=== PATIENT | female | born 1940 | race Caucasian/White ===

== ENCOUNTER 2023-06-30 09:21 | Outpatient (OUT) | payer MEDICARE, SELFPAY ==
[2023-06-30 10:11] LABS: Bilirubin Urine NEGATIVE (NEGATIVE); Blood Urine SMALL (NEGATIVE); Clarity Urine CLEAR (CLEAR); Color Urine LT. YELLOW (YELLOW); Glucose Urine UA NEGATIVE (NEGATIVE); Hematocrit 43.3 % (36.0-48.0); Hemoglobin 14.1 g/dL (12.0-16.0); Ketones Urine NEGATIVE (NEGATIVE); Leukocyte Esterase Urine SMALL (NEGATIVE); Mean Corpuscular HGB Conc 32.6 g/dL (29.9-35.2); Mean Corpuscular Hemoglobin 30.6 pg (26.7-34.0); Mean Corpuscular Volume 93.9 fL (81.0-99.0); Mean Platelet Volume 10.9 fL (9.5-13.5); Nitrite Urine NEGATIVE (NEGATIVE); Platelet Count 253 10^3/uL (150-450); Protein Urine NEGATIVE (NEG/TRACE); Red Blood Count 4.61 10^6/uL (4.20-5.40); Red Cell Distribution Width 14.3 % (11.0-15.0); Specific Gravity Urine 1.015 (1.005-1.025); Urobilinogen Urine 0.2 EU/dL (0.2-1.0); White Blood Count 9.3 10^3/uL (4.0-11.0)
[2023-06-30 10:29] LABS: Alanine Aminotransferase 52 U/L (14-59); Albumin Globulin Ratio 1.2; Albumin Level 4.4 g/dL (3.4-5.0); Alkaline Phosphatase 98 U/L (46-116); Anion Gap 10.7; Aspartate Amino Transferase 35 U/L (15-37); BUN Creatinine Ratio 33.8; Bilirubin Total 0.9 mg/dL (0.2-1.0); Calcium 9.3 mg/dL (8.5-10.1); Carbon Dioxide 30.6 mmol/L (21.0-32.0); Chloride 101 mmol/L (98-107); Estimated GFR (African America 46 (>=60); Estimated GFR (Non-African Ame 38 (>=60); Globulin 3.7 g/dL; Glucose 131 mg/dL (74-106); Magnesium 2.3 mg/dL (1.8-2.4); Potassium 4.3 mmol/L (3.5-5.1); Sodium 138 mmol/L (136-145); Total Protein 8.1 g/dL (6.4-8.2); Uric Acid 8.3 mg/dL (2.6-6.0)
[2023-06-30 10:38] LABS: Creatinine Urine Random 80.03 mg/dL (20.00-300.00); Protein Creatinine Ratio Urine 0.18; Total Protein Urine Random 14.2 mg/dL (<=11.9)
[2023-07-01 11:11] LABS: PTH, Intact 68 pg/mL (15-65)
== END 2023-06-30 09:22 | disposition home or self-care (01) ==
LOC: LAB 09:25
PROVIDERS: Visit Provider Internal Medicine Nephrology
DX: E11.22 Type 2 diabetes mellitus with diabetic chronic kidney disease (principal); N18.4 Chronic kidney disease, stage 4 (severe); I13.0 Hypertensive heart and chronic kidney disease with heart failure and stage 1 through stage 4 chronic kidney disease, or unspecified chronic kidney disease; I50.9 Heart failure, unspecified; E55.9 Vitamin D deficiency, unspecified; E79.0 Hyperuricemia without signs of inflammatory arthritis and tophaceous disease; E87.5 Hyperkalemia
CPT/HCPCS: 36415; 80053; 81003; 82306; 82570; 83735; 83970; 84100; 84156; 84550; 85027

== ENCOUNTER 2023-09-08 13:52 | Outpatient (OUT) | payer MEDICARE, SELFPAY ==
[2023-09-08 15:43] LABS: Anion Gap 14.7; BUN Creatinine Ratio 37.2; Calcium 9.3 mg/dL (8.5-10.1); Carbon Dioxide 27.4 mmol/L (21.0-32.0); Chloride 101 mmol/L (98-107); Estimated GFR (African America 44 (>=60); Estimated GFR (Non-African Ame 37 (>=60); Glucose 163 mg/dL (74-106); Potassium 4.1 mmol/L (3.5-5.1); Sodium 139 mmol/L (136-145)
== END 2023-09-08 13:53 | disposition home or self-care (01) ==
LOC: LAB 13:55
PROVIDERS: Visit Provider Nurse Practitioner Family
DX: I50.23 Acute on chronic systolic (congestive) heart failure (principal)
CPT/HCPCS: 36415; 80048; 83880

== ENCOUNTER 2023-10-08 10:16 | Outpatient (OUT) | payer MEDICARE, SELFPAY ==
--- NOTE | 2023-10-08 15:45 | CA_ITS ---
Patient Name: MABLE CHAPPELL MR#: [id number] : 1940 Exam Date: 10/08/2023 Ordering Doctor: DHEERAJ WHITEHEAD CNP ECHOCARDIOGRAM REPORT PROCEDURE: CA ECHO DOPPLER COMPLETE INDICATIONS: Nonrheumatic aortic valve stenosis, CHF COMPARISON: None. DESCRIPTION: COMPLETE ECHOCARDIOGRAM Real-time transthoracic echocardiography with 2D, M-mode, spectral and color flow Doppler performed. QUALITY: Technical quality was good. LEFT VENTRICLE: Normal chamber size. Thickened septal wall. LV EF: Global left ventricular systolic function is normal. Visual estimation of left ventricular ejection fraction is 60 to 65%. No wall motion abnormalities. DIASTOLIC: Not adequately assessed due to heart rhythm. ATRIAL SEPTUM: Inadequately seen. LEFT ATRIUM: Severe dilatation. RIGHT ATRIUM: Mild dilatation. RIGHT VENTRICLE: Normal chamber size. Normal right ventricular systolic function. TRICUSPID VALVE: Normal mobility and thickness. Mild to moderate regurgitation. Moderate pulmonary hypertension. RVSP 45mmHg MITRAL VALVE: Moderately thickened. Mitral valve stenosis suspected; unable to assess severity. There is no mitral annular calcification. Moderate to severe mitral regurgitation. AORTIC VALVE: Normal trileaflet appearance. Severely calcified aortic valve. Severely diminished mobility. Doppler velocity suggests mild to moderate aortic valve stenosis. Vmax 2.7m/s, Mean gradient 20mmHg. Severe aortic stenosis is suggested by DVI 0.2, WISAM 0.4cm2. Mild aortic regurgitation. AORTIC ROOT: Normal diameter and appearance. PULMONIC VALVE: Normal thickness and mobility. No stenosis. Trivial regurgitation. PERICARDIUM: Trivial pericardial effusion. IVC: Collapses with inspirations. Normal size. CONCLUSION: 1. Global left ventricular systolic function is normal; visually estimated ejection fraction is 60 to 65% 2. Biatrial enlargement 3. The right ventricle is normal in size and systolic function 4. Mild to moderate tricuspid regurgitation 5. Right ventricular systolic pressure is moderately elevated; RVSP 45 mmHg 6. Mitral valve stenosis is suspected; unable to assess severity 7. Moderate to severe mitral regurgitation 8. Aortic valve stenosis; Doppler velocity suggests mild to moderate aortic valve stenosis. Severe aortic stenosis is suggested by the DVI of 0.20 and aortic valve area of 0.4 cm?. 9. Mild aortic valve regurgitation 10. Trivial pericardial effusion Adult Echocardiography Procedure Report Left Ventricle LVEDD (3.7 - 5.6 cm): 4.13 cm LVESD (2.2 - 4.0 cm): 2.35 cm LVIVS thickness (0.6 - 1.2 cm): 1.21 cm LVPW thickness (0.5 - 1.0 cm): 0.66 cm e': 0.09 m/s E - e': 16.81 LVOT Max Gradient: 1.23 mm[Hg] LVOT Area (cm2): 0.55 m/s Peak Velocity (LVOT): 0.55 m/s Mean Velocity (LVOT): 0.36 m/s LVOT Diameter 1.74 cm Left Ventricular Ejection Fraction: 59.57 % Left Atrium LA Volume Index (2D A2C): 85.30 ml/m2 Left Atrium Systolic Dimension: 4.42 cm Mitral Valve MV E to A Ratio: 55.49 Mitral Valve A-Wave Peak Velocity: 0.03 m/s Mitral Valve E-Wave Peak Velocity: 1.50 m/s Right Ventricle RV Internal Diastolic Dimension: 2.93 cm Aorta AO Root Diam: 2.66 cm Ascending Ao Diam: 2.15 cm Aortic Valve AoV Area (Peak Crescencio): 0.52 cm2, 0.59 cm2 AoV Area (VTI): 0.53 cm2, 0.64 cm2 Deceleration Shoshone: 1.15 m/s2 Pressure Half-Time: 883.66 ms Peak Velocity(Antegrade Flow): 2.24 m/s, 2.56 m/s, 2.71 m/s Peak Gradient(Antegrade Flow): 20.12 mm[Hg], 26.31 mm[Hg], 29.29 mm[Hg] Mean Velocity(Antegrade Flow): 1.78 m/s, 1.76 m/s, 2.13 m/s Mean Gradient(Antegrade Flow): 13.64 mm[Hg], 14.17 mm[Hg], 19.45 mm[Hg] Velocity Time Integral: 53.26 cm, 60.85 cm, 79.74 cm Tricuspid Valve Peak Velocity (Regurgitant Flow): 2.69 m/s, 3.20 m/s, 3.21 m/s Pulmonic Valve Peak Velocity: 0.82 m/s Peak Gradient: 2.37 mm[Hg], 3.01 mm[Hg] Right Atrium Right Atrium Systolic Pressure: 40.23 ml, 40.23 ml Dictated by: Roshan Caruso M.D. on 10/09/2023 at 14:13 Approved by: Roshan Caruso M.D. on 10/09/2023 at 14:25
== END 2023-10-08 10:17 | disposition home or self-care (01) ==
LOC: CARD 10:16
PROVIDERS: Visit Provider Nurse Practitioner Family
DX: I50.32 Chronic diastolic (congestive) heart failure (principal)
CPT/HCPCS: 93306

== ENCOUNTER 2023-11-19 12:09 | Outpatient (OUT) | payer MEDICARE, SELFPAY ==
--- OUTSIDE RECORDS SUMMARY | 2023-11-19 12:14 | XMS_ITS | CCD ---
Author Name Unknown Address [address] [place] [address] Organization [facility] Care Team Providers Care Pail Tester Name Role Phone Zachary Ware Primary Care Provider ANABEL CUEVAS Referring Unavailable ANABEL CUEVAS Referring Unavailable ZACHARY WARE Primary Care Unavailable Albin Bonner Unavailable Zachary Ware Primary Care Provider Kelvin Maya MD, [place] Primary Care Provider DR ZACHARY WARE Primary Care Unavailable FURLONG, DR ZACHARY Larson Consulting Unavailable FURLONG, DR ZACHARY Larson Attending Unavailable FURLONG, DR ZACHARY Larson Admitting Unavailable PANTEGO, DR CHARIS Maya Consulting Unavailable MISC, DR DENNISON Admitting Unavailable MISC, DR DENNISON Primary Care Unavailable MISC, DR DENNISON Consulting Unavailable MISC, DR DENNISON Attending Unavailable MISC, DR DENNISON Admitting Unavailable FURLONG, DR ZACHARY Larson Primary Care Unavailable FURLONG, DR ZACHARY Larson Consulting Unavailable MISC, DR DENNISON Attending Unavailable MOUKARBEL, DR SYKES Attending Unavailable MOUKARBEL, DR SYKES Admitting Unavailable FURLONG, DR ZACHARY Larson Primary Care Unavailable VENTURADHEERAJ KUMARI Admitting Unavailable BARBARA WHITEHEADINDA Consulting Unavailable DHEERAJ WHITEHEAD Attending Unavailable FURLOSTACIE, DR ZACHARY Larson Primary Care Unavailable MOUKARBEL, DR SYKES Consulting Unavailable MOUKARBEL, DR SYKES Attending Unavailable MOUKARBEL, DR SYKES Admitting Unavailable VENTURADHEERAJ MICHAUD Admitting Unavailable ELA GASPAR Consulting Unavailable MISC, DR DENNISON Primary Care Unavailable DHEERAJ WHITEHEAD Attending Unavailable VENTURA, DHEERAJ Consulting Unavailable FURLONG, DR ZACHARY Larson Primary Care Unavailable PAY ., DR GARCIA Attending Unavailable PAY ., DR GARCIA Admitting Unavailable PAY ., DR GARCIA Consulting Unavailable MISC, DR DENNISON Primary Care Unavailable HAY ., DR JOHANSEN Attending Unavailable HAY ., DR JOHANSEN Admitting Unavailable HAY ., DR JOHANSEN Consulting Unavailable MAYORAUL Consulting Unavailable DHEERAJ WHITEHEAD Admitting Unavailable MISC, DR DENNISON Primary Care Unavailable MISC, DR DENNISON Consulting Unavailable DHEERAJ WHITEHEAD Attending Unavailable DHEERAJ WHITEHEAD Consulting Unavailable MOUKARBEL, DR SYKES Consulting Unavailable MOUKARBEL, DR SYKES Attending Unavailable MOUKARBEL, DR SYKSE Admitting Unavailable MISC, DR DENNISON Primary Care Unavailable MISC, DR DENNISON Attending Unavailable MISC, DR DENNISON Admitting Unavailable MISC, DR DENNISON Primary Care Unavailable MISC, DR DENNISON Consulting Unavailable MISC, DR DENNISON Primary Care Unavailable MOUKARBEL, DR SYKES Consulting Unavailable MOUKARBEL, DR SYKES Attending Unavailable MOUKARBEL, DR SYKES Admitting Unavailable MEDKATHARINA Briones Attending Unavailable MED, KATHARINA Admitting Unavailable KATHARINA JOVEL Consulting Unavailable [place], DR ZACHARY Larson Primary Care Unavailable NADEEM DANIEL Primary Care Unavailable IMAN OSEGUERA Referring Unavailable FIDE GRANGER Referring Unavailable JOSÉ BHAGAT Primary Care Unavailabl e DHEERAJ WHITEHEAD Attending Unavailable DHEERAJ WHITEHEAD Attending Unavailable DHEERAJ WHITEHEAD Attending Unavailable DHEERAJ WHITEHEAD Attending Unavailable Medications Current Medications Medication Drug Class(es) Dates Sig (Normalized) Sig (Original) amLODIPine 5 mg oral tablet (10 sources) Dihydropyridine Calcium Channel Aleksandra take 1 tablet by mouth every twenty-four hours amLODIPine Besylate 5 MG 1 tablet Orally Once a day Active anastrozole 1 mg oral tablet (14 sources) Aromatase Inhibitor Start: 07-10-2021 take 1 tablet by mouth once daily anastrozole (ARIMIDEX) 1 MG tablet 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 Take 1 tablet by mouth daily 180 tablet 1 08/27/2022 Active apixaban 2.5 mg oral tablet (9 sources) Factor Xa Inhibitor Start: 01-17-2022 take 1 tablet by mouth once ELIQUIS 2.5 MG TABS tablet TAKE ONE TABLET BY MOUTH EVERY TWELVE HOURS 0 01/17/2022 Active Eliquis 2.5 MG a s directed Orally TWICE A DAY Active atorvastatin 10 mg oral tablet (10 sources) HMG-CoA Reductase Inhibitor Start: 2021 atorvastatin (LIPITOR) 10 MG tablet daily 0 2021 Active benazepril hydrochloride 10 mg oral tablet (10 sources) Angiotensin Converting Enzyme Inhibitor Start: 07-12-2021 benazepril (LOTENSIN) 10 MG tablet 1 tablet daily 0 07/12/2021 Active docusate sodium 100 mg oral capsule (6 sources) take 1 capsule by mouth every twenty-four hours Colace 100 MG 1 capsule as needed Orally Once a day Active furosemide 20 mg oral tablet (9 sources) Loop Diuretic Start: 10-16-2021 take 1 tablet by mouth once daily furosemide (LASIX) 20 MG tablet TAKE 1 TABLET BY MOUTH EVERY DAY FOR 5 DAYS 0 10/16/2021 Active take 1 tablet by sparkle th every twelve hours Furosemide 40 MG 1 tablet Orally twice a day Active take 1 tablet by sparkle th every twenty-four hours Furosemide 40 MG 1 tablet Orally Once a day Active latanoprost 0.05 mg/ml ophthalmic solution (9 sources) Prostaglandin Analog Start: 12-17-2021 take 1 drop(s) into the eye(s) once daily latanoprost (XALATAN) 0.005 % ophthalmic solution INSTILL 1 DROP INTO EYES EVERY NIGHT 0 12/17/2021 Active take 1 drop(s) into the eye(s) once daily in the evening Latanoprost 0.005 % 1 drop into affected eye in the evening Ophthalmic Once a day Active 24 hr metFORMIN hydrochloride 500 mg extended release oral tablet (4 sources) Biguanide Start: 06-19-2021 metFORMIN (GLUCOPHAGE-XR) 500 MG extended release tablet Take 1 tablet in the morning and 1/2 tablet in the evening 0 06/19/2021 Active 24 hr metoprolol succinate 200 mg extended release oral tablet (10 sources) beta-Adrenergic Aleksandra Start: 05-01-2021 metopr olol succinate (TOPROL XL) 200 MG extended release tablet daily 0 05/01/2021 Active pioglitazone 30 mg oral tablet (4 sources) Peroxisome Proliferator Receptor alpha Agonist, Peroxisome Proliferator Receptor gamma Agonist, Thiazolidinedione Start: 07-06-2021 pioglitazone (ACTOS) 30 MG tablet daily 0 07/06/2021 Active SITagliptin 100 mg oral tablet (10 sources) Dipeptidyl Peptidase 4 Inhibitor Start: 07-07-2021 JANUVIA 100 MG table t daily 0 07/07/2021 Active take 1 tablet by sparkle th every twenty-four hours Januvia 50 MG 1 tablet Orally Once a day Active sodium zirconium cyclosilicate 29662 mg powder for oral suspension (4 sources) Start: 01-21-2023 take 1 dose by mouth once daily Lokelma 10 GM 1 packet dissolved in water Orally Once a day for 3 days Jan, Active spironolactone 25 mg oral tablet (5 sources) Aldosterone Antagonist Start: 11-09-2021 take 1 tablet by mouth once daily spironolactone (ALDACTONE) 25 MG tablet spironolactone 25 mg tablet Take 1 tablet every day by oral route for 90 days. 0 11/09/2021 Active Vitamin D 25 MCG (1000 UT) (6 sources) take 1 tablet by mouth once daily Vitamin D 25 MCG (1000 UT) 1 tablet Orally Once a day Active VITAMIN D, CHOLECALCIFEROL, PO (4 sources) VITAMIN D, CHOLECALCIFEROL, PO Take by mouth daily 0 Active Problems Active Problems Problem Classification Problem Date Documented Date Episodic/Chronic Chronic kidney disease (16 sources) Chronic kidney disease stage 4; Translations: [Chronic kidney disease, stage 4 (severe)] Onset: 04-23-2022 Resolved: 04-23-2022 Chronic Chronic kidney disease (2 sources) Chronic kidney disease; Translations: [Chronic kidney disease, stage 3 unspecified] Onset: 08-03-2022 Congestive heart failure; nonhypertensive (20 sources) Heart failure; Translations: [Heart failure, unspecified] Onset: 10-16-2021 Resolved: 04-23-2022 10-16-2021 Chronic Coronary atherosclerosis and other heart disease (2 sources) Atherosclerotic heart disease of [place] coronary artery without angina pectoris; Translations: [Atherosclerotic heart disease of [place] coronary artery without angina pectoris] Onset: 04-16-2023 Chronic Diabetes mellitus with complications (1 source) Type 2 diabetes mellitus with diabetic chronic kidney disease; Translations: [TYPE 2 DM W/DIABETIC CKD] Onset: 02-06-2023 Chronic Diabetes mellitus without complication (10 sources) Type 2 diabetes mellitus; Translations: [Type 2 diabetes mellitus without complications] Onset: 04-23-2022 Resolved: 04-23-2022 Chronic Disorders of lipid metabolism (2 sources) Mixed hyperlipidemia; Translations: [Mixed hyperlipidemia] Onset: 08-03-2022 Chronic E Codes: Fall (1 source) Fall on same level from slipping, tripping and stumbling with subsequent striking against unspecified object, initial encounter; Translations: [FALL SAME LVL SLIP STRK UNS OBJ INT] Onset: 01-15-2023 Episodic Essential hypertension (11 sources) Essential hypertension; Translations: [Essential (primary) hypertension] Onset: 04-23-2022 Resolved: 04-23-2022 Chronic Fluid and electrolyte disorders (3 sources) Hyperkalemia Episodic Genitourinary symptoms and ill-defined conditions (6 sources) Randall hematuria; Translations: [Gross hematuria] Onset: 09-26-2021 Episodic Heart valve disorders (13 sources) Nonrheumatic aortic (valve) stenosis; Translations: [Combined rheumatic disorders of mitral, aortic and tricuspid valves] Onset: 06-09-2022 Chronic Hypertension with complications and secondary hypertension (8 sources) Hypertensive heart disease with heart failure; Translations: [Hypertensive heart and chronic kidney disease with heart failure and stage 1 through stage 4 chronic kidney disease, or unspecified chronic kidney disease] Onset: 01-13-2023 Chronic Immunizations and screening for infectious disease (1 source) Encounter for immunization; Translations: [ENCOUNTER FOR IMMUNIZATION] Onset: 01-15-2023 Episodic Menopausal disorders (4 sources) Postmenopausal bleeding; Translations: [Postmenopausal bleeding] Onset: 09-26-2021 09-26-2021 Chronic Nutritional deficiencies (9 sources) Vitamin D deficiency; Translations: [Vitamin D deficiency, unspecified] Onset: 01-15-2023 Chronic Other aftercare (1 source) Other alf (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; Translations: [OTH PUBLIC HEALTH STAFF NURSE CURRENT DRUG THERAPY] Onset: 01-15-2023 Episodic Other aftercare (1 source) termite helper (current) use of anticoagulants; Translations: [PUBLIC HEALTH STAFF NURSE CURRNT USE ANTICOAGULANTS] Onset: 01-15-2023 Episodic Other injuries and conditions due to external causes (1 source) Other specified injuries of head, initial encounter; Translations: [OTH SPEC INJURIES HEAD INITIAL ENC] Onset: 01-15-2023 Episodic Other nutritional; endocrine; and metabolic disorders (3 sources) Hyperuricemia without signs of inflammatory arthritis and tophaceous disease Episodic Superficial injury; contusion (1 source) Abrasion of scalp, initial encounter; Translations: [ABRASION OF SCALP INITIAL ENCOUNTER] Onset: 01-15-2023 Episodic Unclassified (1 source) Other persistent atrial fibrillation; Translations: [OTHR PERSISTENT ATRIAL FIBRILLATION] Onset: 08-26-2022 Unclassified (2 sources) Longstanding persistent atrial fibrillation; Translations: [Longstanding persistent atrial fibrillation] Onset: 09-06-2022 Past or Other Problems Problem Classification Problem Date Documented Da te Episodic/Chronic Cancer of ovary (2 sources) History of malignant neoplasm of ovary; Translations: [Personal history of malignant neoplasm of ovary] Onset: 01-24-2023 Episodic Neoplasms of unspecified nature or uncertain behavior (7 sources) Borderline epithelial tumor of ovary; Translations: [Neoplasm of uncertain behavior of unspecified ovary] Onset: 07-18-2021 Episodic Nonspecific chest pain (3 sources) Chest pain, unspecified; Translations: [CHEST PAIN UNSPECIFIED] Onset: 03-12-2023 Episodic Other connective tissue disease (3 sources) Pain in right leg; Translations: [PAIN IN RIGHT LEG] Onset: 03-12-2023 Episodic Other connective tissue disease (3 sources) Pain in left leg; Translations: [PAIN IN LEFT LEG] Onset: 03-12-2023 Episodic Other screening for suspected conditions (not mental disorders or infectious disease) (4 sources) Encounter for screening mammogram for malignant neoplasm of breast; Translations: [ENC SCR MAMMO MALIG NEOPLASM BREAST] Onset: 05-29-2022 Episodic Residual codes; unclassified (4 sources) Flushing; Translations: [FLUSHING] Onset: 11-08-2022 Episodic Residual codes; unclassified (1 source) Family history of malignant neoplasm of ovary; Translations: [FAM HX MALIGNANT NEOPLASM OVARY] Onset: 06-12-2022 Episodic Results Test Name Value Interpretation Reference Range Facil ity BI MAMMOGRAM SCREENING TOMOS YNTHESIS BILATERALon 09-15-2023 BI MAMMOGRAM SCREENING TOMOSYNTHESIS BILATERAL This is a summary report. The complete report is available in the patient's medical record. If you cannot access the medical record, please contact the sending organization for a detailed fax or copy. EXAMINATION: BI MAMMOGRAM SCREENING TOMOSYNTHESIS BILATERAL CLINICAL HISTORY: screening COMPARISON: There are no previous mammograms available for comparison. RESULT: Digital mammography and 3D tomosynthesis of bilateral breasts was performed. There are scattered areas of fibroglandular density. There is no suspicious mass, asymmetry, architectural distortion, or calcification. Typically benign calcifications. IMPRESSION: BIRADS 2 - Benign. Follow-up: Routine Screening Mamm . Board Certified Radiologists. Accredited by the ACR and FDA. MAMMOGRAPHY IS VERY IMPORTANT TO YOUR HEALTH. THE [employer] GUIDELINES RECOMMEND THAT WOMEN 40 YEARS OF AGE AND OLDER SHOULD HAVE A MAMMOGRAM EVERY YEAR. A REMINDER LETTER WILL BE SENT AT THE APPROPRIATE TIME. THIS FACILITY UTILIZES A REMINDER SYSTEM TO ENSURE ALL PATIENTS RECEIVE REMINDER NOTIFICATIONS AT THE APPROPRIATE TIME BASED ON THE RECOMMENDATIONS OF THIS EXAM. THIS INCLUDES REMINDERS FOR ROUTINE SCREENING MAMMOGRAMS, DIAGNOSTIC MAMMOGRAMS IN WHICH THE PATIENT IS ASKED TO RETURN FOR ADDITIONAL VIEWS, OR OTHER BREAST IMAGING INTERVENTIONS WHEN APPROPRIATE. THE PATIENT WILL BE PLACED IN THE APPROPRIATE REMINDER SYSTEM INCLUDING A REMINDER AT THE APPROPRIATE TIME FOR ANY PENDING ADDITIONAL VIEWS. TRANSCRIBED BY: ELECTRONICALLY SIGNED BY: Skyler Yanez MD Normal Not Available 36on 09-09-2023 36 I see she has an robson t with me tomorrow for SOB, leg swelling, weight gain. Please have her increase her lasix to 40mg BID. Thank you Normal [facility] [place] 125on 08-27-2023 [place] 125 9 U/mL Normal <38 Mei Parker ospijerman Comment on above: Result Comment: The Jorje ECLIA assay is used. Results obtained with different assay methods cannot be used interchangeably. Performed By: #### C A125 #### [address] [place] [address] Manager Cost: Andrew Blakely MD 37on 05-07-2023 37 *Continue taking las ix 40mg twice daily. *Continue monitoring your weight daily. If you noticed 2-3 lbs weight gain in a day or 5 lbs in a week then take an extra tablet of lasix for 2-3 days until weight comes back down. Let us know if weight continues to increase despite extra doses of lasix. Normal [facility] Visiton 05-07-2023 Follow-up visit [id number] Mary Rodriguez 1940 F Date Provider Department Center 05/07/2023 DHEERAJ CARNEY Family History Problem Relation Age of Onset Heart attack Mother Heart attack Brother Family Status - Relation Status Age at Mother Brother Level of Service:31205 [place] OFFICE/OUTPATIENT ESTABLISHED LOW MDM 20-29 MIN Reason for Visit and Comments: Congestive Heart Failure [127] Normal [facility] 36on 04-24-2023 36 Please let patient/n iece know that her labs show her kidney function has improved. Continue lasix 40mg BID. Follow-up in 4-6 weeks. Thanks [facility] Telephoneon 04-24-2023 Telephone [id number] Mary Rodriguez 1940 F Date Provider Department Center 04/24/2023 DHEERAJ CARNEY Family History Problem Relation Age of Onset Heart attack Mother Heart attack Brother Family Status - Relation Status Age at Mother Brother [facility] Office Visiton 04-16-2023 Follow-up visit [id number] Garcia 1940 Date Provider Department Center 04/16/2023 DHEERAJ CARNEY Family History Problem Relation Age of Onset Heart attack Mother Heart attack Brother Family Status - Relation Status Age at Mother Brother Level of Service:31308 [place] OFFICE/OUTPATIENT ESTABLISHED MOD MDM 30-39 MIN Reason for Visit and Comments: Follow-up [804787] - 1 month follow up [facility] 36on 03-26-2023 36 Please let her/her n iece know that her leg ultrasound showed no blood clots. Her labs from 03/17 show her kidney function worsened slightly. Would like for her to go back to taking lasix 40mg daily and monitor her weight daily. How has she been feeling and what have her weights been? [facility] Telephoneon 03-26-2023 Telephone [id number] Garcia 1940 Date Provider Department Center 03/26/2023 DHEERAJ CARNEY Family History Problem Relation Age of Onset Heart attack Mother Heart attack Brother Family Status - Relation Status Age at Mother Brother Normal [facility] PROF CHEM 8 (BAS METB)on Anion gap [Moles/Vol] 13.7 mmol/L Normal [facility] Comment on above: Performed By: #### C MP, URIC #### [facility] [address] [address] [address] Hussein Camacho Calcium [Mass/Vol] 9.7 mg/dL Normal 8.5-10.1 [facility] Comment on above: Performed By: #### C MP, URIC #### [facility] [address] [address] [address] Hussein Camacho Chloride [Moles/Vol] 100 mmol/L Normal 98-107 [facility] Comment on above: Performed By: #### C MP, URIC #### [facility] [address] [place] [address] Dr. Hussein Camacho CO2 [Moles/Vol] 29.9 mmol/L Normal 21.0-32.0 [facility] Comment on above: Performed By: #### C MP, URIC #### [facility] [address] [address] [address] Hussein Camacho Creatinine [Mass/Vol] 1.87 mg/dL Critically high 0.55-1.02 [facility] Comment on above: Performed By: #### C MP, URIC #### [facility] [address] [place] [address] Dr. Hussein Camacho EGFR-AF BERMUDIAN 31 mL/min/1.73m2 Critically low >=60 [facility] Comment on above: Performed By: #### C MP, URIC #### [facility] [address] [address] [address] Hussein Camacho EGFR-NON AF BERMUDIAN 26 mL/min/1.73m2 Critically low >=60 [facility] Comment on above: Performed By: #### C MP, URIC #### [facility] [address] [address] [address] Hussein Camacho Glucose [Mass/Vol] 146 mg/dL Critically high 74-106 [facility] Comment on above: Performed By: #### C MP, URIC #### [facility] [address] [address] [address] Hussein Camacho Potassium [Moles/Vol] 4.6 mmol/L Normal 3.5-5.1 [facility] Comment on above: Performed By: #### C MP, URIC #### [facility] [address] [address] [address] Hussein Camacho Sodium [Moles/Vol] 139 mmol/L Normal 136-145 [facility] Comment on above: Performed By: #### C MP, URIC #### [facility] [address] [address] [address] Hussein Camacho Urea nitrogen [Mass/Vol] 67.0 mg/dL Critically high 7.0-18 .0 [facility] Comment on above: Performed By: #### C MP, URIC #### [facility] [address] [place] [address] Dr. Hussein Camacho Urea nitrogen/Creatinine [Mass ratio] 35.8 mg/mg Normal [facility] Comment on above: Performed By: #### C MP, URIC #### [facility] [address] [place] [address] Dr. Hussein Camacho US TRANG DOP LEG BILon 023 US TRANG DOP LEG GIRMA EXAM: US TRANG DOP LEG GIRMA HISTORY: Disorder of soft tissue , bilateral lower extremity pain, on blood thinners. COMPARISON: None. TECHNIQUE: Grayscale, color and spectral Doppler ultrasound of the bilateral lower extremity venous system. FINDINGS: Appropriate venous waveforms, compressibility and augmentation with compression within the bilateral lower extremity veins. IMPRESSION: No evidence of DVT within the bilateral lower extremities. Electronically authenticated by: ELA GASPAR Date: 2023-03-17 17:00 Normal [facility] l BNPon 03-12-2023 Natriuretic peptide B (Bld) [Mass/Vol] 3283.0 pg/mL Critically high <=1,800.0 [facility] Comment on above: Performed By: #### C MP, URIC #### [facility] [address] [place] [address] Dr. Hussein Camacho D-DIMERon 03-12-2023 D-DIMER 1.34 mg/L FEU Critically high <=0.59 [facility] Comment on above: Performed By: #### C MP, URIC #### [facility] [address] [place] [address] [id number] [address] Hussein Camacho D-DIMER COMMENTS SEE BELOW Normal [facility] Comment on above: Result Comment: Incr eases in D-Dimer concentration observed with thromboembolic events can be variable due to localization, size, and age of the thrombus. Therefore, a thromboembolic event cannot be diagnosed with certainty on the basis of the reference range. D-Dimers may also be elevated for a variety of disorders including: advanced age, , coronary disease, cancer, liver disease, infection, inflammation, hematoma, DIC, trauma, post-surgery, diabetes, thrombolytic or anticoagulant therapy, stress, and generalized hospitalization. Performed By: #### C MP, URIC #### [facility] [address] [place] [address] [address] [address] Hussein Camacho Office Visiton 03-12-2023 Follow-up visit [id number] Mary Rodriguez 1940 F Date Provider Department Center 03/12/2023 DHEERAJ CARNEY [facility] Family History Problem Relation Age of Onset Heart attack Mother Heart attack Brother Family Status - Relation Status Age at Mother Brother Level of Service:[address]75 [place] OFFICE/OUTPATIENT ESTABLISHED MOD MDM 30-39 MIN Reason for Visit and Comments: Follow-up [043205] Edema [[id number]] Shortness of Breath [556096] Normal [facility] PROF CHEM 8 (BAS METB)on Anion gap [Moles/Vol] 12.4 mmol/L Normal [facility] Comment on above: Performed By: #### C MP, URIC #### [facility] [address] [place], [place] [address] Dr. Hussein Camacho Calcium [Mass/Vol] 9.6 mg/dL Normal 8.5-10.1 [facility] Comment on above: Performed By: #### C MP, URIC #### [facility] [address] [place], [place] [address] Dr. Hussein Camacho Chloride [Moles/Vol] 104 mmol/L Normal 98-107 [facility] Comment on above: Performed By: #### C MP, URIC #### [facility] [address] [place] [address] Dr. Hussein Camacho CO2 [Moles/Vol] 29.6 mmol/L Normal 21.0-32.0 [facility] Comment on above: Performed By: #### C MP, URIC #### [facility] [address] [place] [address] Dr. Hussein Camacho Creatinine [Mass/Vol] 1.55 mg/dL Critically high 0.55-1.02 [facility] Comment on above: Performed By: #### C MP, URIC #### [facility] [address] [place] [address] Dr. Hussein Camacho EGFR-AF BERMUDIAN 39 mL/min/1.73m2 Critically low >=60 [facility] Comment on above: Performed By: #### C MP, URIC #### [facility] [address] [place] [address] Dr. Hussein Camacho EGFR-NON AF BERMUDIAN 32 mL/min/1.73m2 Critically low >=60 [facility] Comment on above: Performed By: #### C MP, URIC #### [facility] [address] [place] [address] Dr. Hussein Camacho Glucose [Mass/Vol] 128 mg/dL Critically high 74-106 [facility] Comment on above: Performed By: #### C MP, URIC #### [facility] [address] [place] [address] Dr. Hussein Camacho Potassium [Moles/Vol] 3.9 mmol/L Normal 3.5-5.1 [facility] Comment on above: Performed By: #### C MP, URIC #### [facility] [address] [place] [address] Dr. Hussein Camacho Sodium [Moles/Vol] 142 mmol/L Normal 136-145 [facility] Comment on above: Performed By: #### C MP, URIC #### [facility] Laboratory [address] [place] [address] Dr. Hussein Camacho Urea nitrogen [Mass/Vol] 49.0 mg/dL Critically high 7.0-18 .0 [facility] Comment on above: Performed By: #### C MP, URIC #### [facility] [address] [address] [address] Hussein Camacho Urea nitrogen/Creatinine [Mass ratio] 31.6 mg/mg Normal [facility] Comment on above: Performed By: #### C MP, URIC #### [facility] [address] [address] [address] Hussein Camacho ECHOCARDIO M/2D COMPLETEon 0 03-10-2023 ECHOCARDIO M/2D COMPLETE Patient Name Si te YESY Germain [facility] Account No Medical Record Number Age Sex Date Time [id number] [facility]:[id number] F 03/10/2023 14:44 At the Request Of ONEL WALTERS ECHOCARDIOGRAM REPORT PROCEDURE: CARDIO PULMONARY ECHOCARDIO M/2D COMP INDICATIONS: Nonrheumatic aotric stenosis COMPARISON: None. DESCRIPTION: COMPLETE ECHOCARDIOGRAM Real-time transthoracic echocardiography with 2D, M-mode, spectral and color flow Doppler performed. QUALITY: Technical quality was good. LEFT VENTRICLE: Normal chamber size. Normal left ventricular wall thickness. Global left ventricular systolic function is normal. LV EF: Visual estimation of left ventricular ejection fraction is 60-65% DIASTOLIC: Not adequately assessed due to heart rhythm. ATRIAL SEPTUM: LEFT ATRIUM: Severe dilatation. RIGHT ATRIUM: Moderate dilatation. RIGHT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 pressure half time 3.7 cm2. AORTIC VALVE: Normal trileaflet appearance. Severely calcified aortic valve. Severely diminished mobility. Doppler velocity suggest severe aortic valve stenosis. DVI 0.22, WISAM by VTI 0.6 cm2. LVSV 39 ml. Mean gradient 15 mmHg. Mild aortic regurgitation. AORTIC ROOT: Normal diameter and appearance. PULMONIC VALVE: Normal thickness and mobility. No stenosis. PERICARDIUM: No evidence of pericardial effusion. IVC: Collapses with inspirations. Normal size. PLEURA: CONCLUSION: 1. Normal ventricular systolic function. LVEF is 65%. 2. Severe aortic valve stenosis. Doppler velocities suggest paradoxical low flow low gradient aortic stenosis. 3. Moderate mitral regurgitation. 4. Mild tricuspid regurgitation. Moderately elevated right-sided pressures. 5. Severe left atrial enlargement. 6. No pericardial effusion. 7. If clinically indicated, a transesophageal echocardiogram can provide better assessment of the aortic valve. Adult Echocardiography Procedure Report Left Ventricle LVEDD (3.7 - 5.6 cm): 3.93 cm LVESD (2.2 - 4.0 cm): 2.52 cm LVIVS thickness (0.6 - 1.2 cm): 1.04 cm LVPW thickness (0.5 - 1.0 cm): 0.76 cm e': 0.08 m/s E - e': 16.67 LVOT Max Gradient: 1.22 mm[Hg] Peak Velocity (LVOT): 0.55 m/s Mean Velocity (LVOT): 0.36 m/s LVOT Diameter 1.7 cm Left Ventricular Ejection Fraction: 66.04 %, 66.04 % Left Atrium LA Volume Index (2D A2C): 97.43 ml, 97.43 ml Left Atrium Systolic Dimension: 5.35 cm Mitral Valve MV E to A Ratio: 1.88 Mitral Valve A-Wave Peak Velocity: 0.72 m/s Mitral Valve E-Wave Peak Velocity: 1.35 m/s Right Ventricle RV Internal Diastolic Dimension: 3.28 cm Aorta AO Root Diam: 2.58 cm Aortic Valve AoV Area (Peak Crescencio): 0.5 cm2 AoV Area (VTI): 0.6 cm2 Peak Velocity(Antegrade Flow): 2.44 m/s, 2.36 m/s, 2.40 m/s Peak Gradient(Antegrade Flow): 23.74 mm[Hg], 22.36 mm[Hg], 22.95 mm[Hg] Mean Velocity(Antegrade Flow): 1.85 m/s, 1.69 m/s Mean Gradient(Antegrade Flow): 15.14 mm[Hg], 13.21 mm[Hg] Velocity Time Integral: 64.81 cm, 65.05 cm Tricuspid Valve Peak Velocity (Regurgitant Flow): 3.03 m/s, 2.63 m/s, 3.28 m/s Pulmonic Valve Mean Gradient: 2.43 mm[Hg] Mean Velocity: 0.75 m/s Peak Velocity: 1.01 m/s Peak Gradient: 4.10 mm[Hg] Right Atrium Right Atrium Systolic Pressure: 33.05 ml, 33.05 ml Dictated by: Onel Walters M.D. on 08/23/2022 at 16:46 Approved by: Onel Walters M.D. on 08/23/2022 at 17:05 Normal [facility] CA 125on 07-10-2022 CA 125 8 U/mL NINF - 38 U/mL [facility] Comment on above: The Jorje ECLIA as say is used. Results obtained with different assay methods cannot be used interchangeable. [facility] ALBUMIN, RANDOM URINE W/CREA TININEon 06-11-2022 ALBUMIN, URINE 2.5 mg/dL Normal See Note: [facility] Comment on above: Order Comment: FASTI NG:YESFASTING: YES Result Comment: Refe rence Range: Reference Range Not established Performed By: #### 1 0165, 867 #### [facility] [address], [address] [place] [address] Red Leader: Matt Beasley MD ALBUMIN/CREATININE RATIO, RANDOM URINE 39 mcg/mg creat Hig h <30 [facility] Comment on above: Order Comment: FASTI NG:YESFASTING: YES Result Comment: The ADA defines abnormalities in albumin excretion as follows: Albuminuria Category Result (mcg/mg creatinine) Normal to Mildly increased <30 Moderately increased 30-299 Severely increased > OR = 300 The ADA recommends that at least two of three specimens collected within a 3-6 month period be abnormal before considering a patient to be within a diagnostic category. Performed By: #### 1 016, 867 #### [facility] [address], [address] [place] [address] Red Leader: Matt Beasley MD Creatinine (U) [Mass/Vol] 64 mg/dL Normal 20-275 [facility] Comment on above: Order Comment: FASTI NG:YESFASTING: YES Performed By: #### 1 016, 867 #### [facility] [address], [address] [place] [address] Red Leader: Mtat Beasley MD BASIC METABOLIC PANELon 05-31 Calcium [Mass/Vol] 10.0 mg/dL Normal 8.6-10.4 [facility] Comment on above: Performed By: #### 1 0165, 867 #### [facility] [address] [place] [address] Red Leader: Matt Beasley MD Chloride [Moles/Vol] 103 mmol/L Normal 98-110 [facility] Comment on above: Performed By: #### 1 016, 867 #### [facility] [address], [address] [place] [address] Red Leader: Matt Beasley MD CO2 [Moles/Vol] 25 mmol/L Normal 20-32 [facility] Comment on above: Performed By: #### 1 016, 867 #### [facility] [address], [address] [place] [address] Red Leader: Matt Beasley MD Creatinine [Mass/Vol] 1.43 mg/dL High 0.60-0.[address] [facility] Comment on above: Performed By: #### 1 016, 867 #### [facility] [address], [address] [place] [address] Red Leader: Matt Beasley MD GFR/1.73 sq M.predicted shira g non-blacks MDRD (S/P/Bld) [Vol rate/Area] 36 mL/min/{1.73_m2} Low > OR = 60 [facility] Comment on above: Result Comment: The eGFR is based on the CKD-EPI 202 equation. To calculate the new eGFR from a previous Creatinine or Cystatin C result, go to https://www.kidney.org/professionals/ kdoqi/gfr%5Fcalculator Performed By: #### 1 016, 867 #### [facility] [address], [address] [place] [address] Red Leader: Matt Beasley MD Glucose [Mass/Vol] 124 mg/dL High 65-99 [facility] Comment on above: Result Comment: Fasting reference interval For someone without known diabetes, a glucose value between 100 and 125 mg/dL is consistent with prediabetes and should be confirmed with a follow-up test. Performed By: #### 1 0165, 867 #### [facility] [address], [address] [place] [address] Red Leader: Matt Beasley MD Potassium [Moles/Vol] 5.5 mmol/L High 3.5-5.[address] [facility] Comment on above: Performed By: #### 1 0165, 867 #### [facility] [address], [address] [place] [address] Red Leader: Matt Beasley MD Sodium [Moles/Vol] 138 mmol/L Normal 135-146 [facility] Comment on above: Performed By: #### 1 0165, 867 #### [facility] [address], [address] [place] [address] Red Leader: Matt Beasley MD Urea nitrogen [Mass/Vol] 43 mg/dL High 7-25 [facility] Comment on above: Performed By: #### 1 0165, 867 #### [facility] [address], [address] [place] [address] Red Leader: Matt Beasley MD Urea nitrogen/Creatinine [Mass ratio] 30 mg/mg High 6-22 [facility] Comment on above: Performed By: #### 1 016, 867 #### [facility] [place] [address] Red Leader: Matt Beasley MD HEMOGLOBIN A1con 06-11-2022 HEMOGLOBIN A1c 6.1 % of total Hgb High <5.7 [facility] Comment on above: Result Comment: For someone without known diabetes, a hemoglobin A1c value between 5.7% and 6.4% is consistent with prediabetes and should be confirmed with a follow-up test. For someone with known diabetes, a value <7% indicates that their diabetes is well controlled. A1c targets should be individualized based on duration of diabetes, age, comorbid conditions, and other considerations. This assay result is consistent with an increased risk of diabetes. Currently, no consensus exists regarding use of hemoglobin A1c for diagnosis of diabetes for children. Performed By: #### 1 0165, 867 #### [facility] [address], [address] [place] [address] Red Leader: Matt Beasley MD ECHOCARDIO M/2D COMPLETEon 0 06-05-2022 ECHOCARDIO M/2D COMPLETE Patient: YESY HERRON Exam Date: 06/05/2022 : 1940 Gender:F Ordering : DHEERAJ DianeJulián VENTURA Admission #: [id number] Family : ZACHARY WARE Order #: [id number] CLICK HERE TO VIEW EXAM ECHOCARDIOGRAM REPORT PROCEDURE: CARDIO PULMONARY ECHOCARDIO M/2D COMP INDICATIONS: Aortic valve stenosis, Atrial fibrillation COMPARISON: None. DESCRIPTION: COMPLETE ECHOCARDIOGRAM Real-time transthoracic echocardiography with 2D, M-mode, spectral and color flow Doppler performed. QUALITY: Technical quality was adequate. 60 114# 130/64 HR 81 LEFT VENTRICLE: Normal chamber size. Proximal septal hypertrophy (sigmoid septum). Global left ventricular systolic function is normal. No regional wall motion abnormalities. Visual EF 65%. LV EF: DIASTOLIC: ATRIAL SEPTUM: LEFT ATRIUM: Severe dilatation. RIGHT ATRIUM: Moderate dilatation. RIGHT VENTRICLE: Mild dilatation. Normal right ventricular systolic function. TRICUSPID VALVE: Normal mobility and thickness. No stenosis with mild regurgitation. Doppler studies reveal moderately (45-60) elevated right sided pressures. RVSP 55 mmHg MITRAL VALVE: Moderately thickened with decreased mobility. Mild mitral valve stenosis. Mean diastolic gradient 5.8 mmHg. Mitral valve area by pressure half-time 3.1 cm?. Moderate mitral regurgitation. AORTIC VALVE: Normal trileaflet appearance. Doppler velocity suggest moderate aortic valve stenosis. Mean gradient 21 mmHg, peak velocity 3.2 m/s. Aortic valve area around 1 cm?. DVI 0.27. Mild aortic regurgitation. AORTIC ROOT: Normal diameter and appearance. PULMONIC VALVE: Normal thickness and mobility. No stenosis. Trivial regurgitation. PERICARDIUM: No evidence of pericardial effusion. IVC: Collapses with inspirations. IVC is normal in size. PLEURA: CONCLUSION: 1. Normal ventricular systolic function. LVEF is 65%. 2. Moderate aortic valve stenosis with mild regurgitation. 3. Mild mitral valve stenosis with moderate regurgitation. 4. Mild tricuspid regurgitation. 5. Moderate to severe biatrial dilatation. 6. Moderately elevated right-sided pressures. 7. No pericardial effusion. Adult Echocardiography Procedure Report Left Ventricle Left Atrium Mitral Valve Right Ventricle Aorta Aortic Valve Peak Velocity (Antegrade Flow): 2.91 m/s, 3.02 m/s, 3.23 m/s, 3.23 m/s AoV Area (Peak Crescencio): 0.97 cm2, 1.02 cm2, 0.97 cm2, 1.02 cm2, 0.92 cm2, 0.92 cm2, 0.92 cm2, 0.92 cm2 AoV Area (VTI): 1.06 cm2, 1.06 cm2 Peak Velocity(Antegrade Flow): 3.23 m/s Peak Gradient(Antegrade Flow): 41.64 mm[Hg] Tricuspid Valve Peak Velocity (Regurgitant Flow): 3.82 m/s, 3.39 m/s Peak Velocity: 0.47 m/s Pulmonic Valve PV Max Crescencio (0.6 - 0.9 m per sec): 0.78 m/s PV Max Gradient: 2.45 mm[Hg] Right Atrium Dictated by: Onel Walters M.D. on 06/05/2022 at 13:06 Approved by: Onel Walters M.D. on 06/05/2022 at 13:14 Normal [facility] MAMM SCREEN 3D GIRMA CADon 05-29-2022 MAMM SCREEN 3D GIRMA CAD Patient: YESY RODRIGUEZ Exam Date: 05/29/2022 : 1940 Gender:F Ordering : DR ZACHARY WARE Admission #: [id number] Family : Order #: [id number] CLICK HERE TO VIEW EXAM RADIOLOGY REPORT PROCEDURE: MAMMOGRAM SCREENING 3D BILATERAL CAD COMPARISON: MAMM SCREEN 3D GIRMA CAD, 07/05/2020. MAMM DX 3D LT CAD, 03/07/2021. INDICATIONS: Screening for malignant neoplasm of breast Calculator Name NCI Breast Cancer Risk Assessment Tool 5 Year Breast Cancer Risk 1.10% Lifetime Breast Cancer Risk 1.40% Personal Breast Cancer No Personal Ovarian Cancer Yes, 80 Treatments None Family Cancers Sister with ovarian cancer at age 35; Sister with ovarian cancer at age 38. LOCATION: [facility] BREAST COMPOSITION: Heterogeneously dense,which may obscure small masses. FINDINGS: DIAGNOSTIC CATEGORY 2--BENIGN FINDING. NO CHANGE FROM COMPARISON. Scattered benign-appearing nodules are present. Extensive scattered secretory and vascular calcifications, grossly stable limiting diagnostic sensitivity. Scattered benign-appearing lymph nodes are present. RIGHT BREAST: No significant suspicious finding. Stable area of focal asymmetry upper outer quadrant LEFT BREAST: No significant suspicious finding. RECOMMENDATIONS: ROUTINE MAMMOGRAM AND CLINICAL EVALUATION IN 12 MONTHS. PLEASE NOTE: A NORMAL MAMMOGRAM DOES NOT EXCLUDE THE POSSIBILITY OF BREAST CANCER. A CLINICALLY SUSPICIOUS PALPABLE LUMP SHOULD BE BIOPSIED. Dictated by: Charis Schreiber MD on 06/11/2022 at 14:03 Approved by: Charis Schreiber MD on 06/11/2022 at 14:06 Normal [facility] PROF CHEM 8 (BAS METB)on Anion gap [Moles/Vol] 15.1 mmol/L Normal [facility] Comment on above: Performed By: #### B MP #### [facility] [address] [address] [address] Hussein Camacho Calcium [Mass/Vol] 9.6 mg/dL Normal 8.5-10.1 [facility] Comment on above: Performed By: #### B MP #### [facility] [address] [place] [address] [address] Hussein Camacho Chloride [Moles/Vol] 103 mmol/L Normal 98-107 [facility] Comment on above: Performed By: #### B MP #### [facility] [address] [place] [address] [address] Hussein Camacho CO2 [Moles/Vol] 26.0 mmol/L Normal 21.0-32.0 [facility] Comment on above: Performed By: #### B MP #### [facility] [address] [address] [address] Hussein Camacho Creatinine [Mass/Vol] 1.51 mg/dL Critically high 0.55-1.02 [facility] Comment on above: Performed By: #### B MP #### [facility] [address] [place] [address] [address] Hussein Camacho EGFR-AF BERMUDIAN 40 mL/min/1.73m2 Critically low >=60 [facility] Comment on above: Performed By: #### B MP #### [facility] [address] [address] [address] Hussein Camacho EGFR-NON AF BERMUDIAN 33 mL/min/1.73m2 Critically low >=60 [facility] Comment on above: Performed By: #### B MP #### [facility] [address] [address] [address] Hussein Camacho Glucose [Mass/Vol] 120 mg/dL Critically high 74-106 [facility] Comment on above: Performed By: #### B MP #### [facility] [id number] Hussein Camacho Potassium [Moles/Vol] 5.1 mmol/L Normal 3.5-5.1 [facility] Comment on above: Performed By: #### B MP #### [facility] [address] [address] [address] Hussein Camacho Sodium [Moles/Vol] 139 mmol/L Normal 136-145 [facility] Comment on above: Performed By: #### B MP #### [facility] [address] [address] [address] Hussein Camacho Urea nitrogen [Mass/Vol] 40.0 mg/dL Critically high 7.0-18 .0 [facility] Comment on above: Performed By: #### B MP #### [facility] [address] [address] [address] Hussein Camacho Urea nitrogen/Creatinine [Mass ratio] 26.5 mg/mg Normal [facility] Comment on above: Performed By: #### B MP #### [facility] [address] [address] [address] Hussein Camacho Basic Metabolic Panel - Anion gap [Moles/Vol] 10 mmol/L 9 - 17 mmol/L [facility] Calcium [Mass/Vol] 9.8 mg/dL 8.6 - 10.4 mg/dL [facility] Chloride [Moles/Vol] 104 mmol/L 98 - 107 mmol/L [facility] CO2 [Moles/Vol] 25 mmol/L 20 - 31 mmol/L [facility] Creatinine [Mass/Vol] 1.23 mg/dL High 0.50 - 0.90 mg /dL [facility] [employer] GFR 51 mL/min Low >60 [facility] GFR Non- 42 mL/min Low >60 [facility] Glucose [Mass/Vol] 133 mg/dL High 70 - 99 mg/dL [facility] Interpretation and review of laboratory results Abnormal [facility] Potassium [Moles/Vol] 4.2 mmol/L 3.7 - 5.3 mmol /L [facility] Sodium [Moles/Vol] 139 mmol/L 135 - 144 mmol/L [facility] Urea nitrogen (BldV) [Mass/Vol] 32 mg/dL High 8 - 23 mg/dL [facility] Urea nitrogen/Creatinine (Bl d) [Mass ratio] 26 [facility] - Chemistry and C hemistry - challengeon 03-27-2022 GFR/1.73 sq M.predicted MDRD (S/P/Bld) [Vol rate/Area] [facility] Comment on above: Average GFR for 70 o r more years old: 75 mL/min/1.73sq m Chronic Kidney Disease: <60 mL/min/1.73sq m Kidney failure: <15 mL/min/1.73sq m eGFR calculated using average adult body mass. Additional eGFR calculator available at: http://www.[employer]multiple_crcl_2012.htm Stage 1: Some kidney damage normal GFR Stage 2: Mild kidney damage GFR 60-89 Stage 3: Moderate kidney damage GFR 30-59 Stage 4: Severe kidney damage GFR 15-29 Stage 5: Severe kidney damage GFR <15 ESRD - chronic treatment by dialysis or transplant BASIC METABOLIC PANELon Calcium [Mass/Vol] 10.1 mg/dL Normal 8.6-10.4 [facility] Comment on above: Performed By: #### 1 7306, 905, 53225, 718, 76792, 622, 60545, 496 #### [facility] [address] [facility], [address] [place] [phone] Red Leader: Matt Beasley MD Chloride [Moles/Vol] 100 mmol/L Normal 98-110 [facility] Comment on above: Performed By: #### 1 7306, 905, 50529, 718, 59014, 622, 33565, 496 #### [facility] [address] [place] [address], [address] [place] [phone] Red Leader: Matt Beasley MD CO2 [Moles/Vol] 28 mmol/L Normal 20-32 [facility] Comment on above: Performed By: #### 1 7306, 905, 98615, 718, 97383, 622, 37487, 496 #### [facility] [place] [address] Red Leader: Matt Beasley MD Creatinine [Mass/Vol] 1.89 mg/dL High 0.60-0.[address] [facility] Comment on above: Result Comment: For patients >49 years of age, the reference limit for Creatinine is approximately 13% higher for people identified as -Swazi. Performed By: #### 1 7306, 905, 81949, 718, 19185, 622, 13975, 496 #### [facility] [place] [address] Red Leader: Mtat Beasley MD eGFR NON-AFR. BERMUDIAN 24 mL/min/1.73m2 Low > OR = 60 [facility] Comment on above: Performed By: #### 1 7306, 905, 37148, 718, 01744, 622, 70713, 496 #### [facility] [place] [address] Red Leader: Matt Beasley MD GFR/1.73 sq M.predicted shira g blacks MDRD (S/P/Bld) [Vol rate/Area] 28 mL/min/{1.73_m2} Low > OR = 60 [facility] Comment on above: Performed By: #### 1 7306, 905, 44639, 718, 56510, 622, 04484, 496 #### [facility] [place] [address] Red Leader: Matt Beasley MD Glucose [Mass/Vol] 123 mg/dL High 65-99 [facility] Comment on above: Result Comment: Fasting reference interval For someone without known diabetes, a glucose value between 100 and 125 mg/dL is consistent with prediabetes and should be confirmed with a follow-up test. Performed By: #### 1 7306, 905, 04984, 718, 74979, 622, 98299, 496 #### [facility] [place] [address] Red Leader: Matt Beasley MD Potassium [Moles/Vol] 4.7 mmol/L Normal 3.5-5.[address] [facility] [address] [facility] Comment on above: Performed By: #### 1 7306, 905, 65584, 718, 17014, 622, 94201, 496 #### [facility] [place] [address] Red Leader: Matt Beasley MD Sodium [Moles/Vol] 136 mmol/L Normal 135-146 [facility] Comment on above: Performed By: #### 1 7306, 905, 78344, 718, 50270, 622, 18758, 496 #### [facility] [place] [address] Red Leader: Matt Beasley MD Urea nitrogen [Mass/Vol] 64 mg/dL High 7-25 [facility] Comment on above: Performed By: #### 1 7306, 905, 13293, 718, 48904, 622, 69417, 496 #### [facility] [place] [address] Red Leader: Matt Beasley MD Urea nitrogen/Creatinine [Mass ratio] 34 mg/mg High 6-22 [facility] Comment on above: Performed By: #### 1 7306, 905, 60954, 718, 81488, 622, 83136, 496 #### [facility] [place] [address] Red Leader: Matt Beasley MD HEMOGLOBIN A1con 03-05-2022 HEMOGLOBIN A1c 6.4 % of total Hgb High <5.7 [facility] Comment on above: Result Comment: For someone without known diabetes, a hemoglobin A1c value between 5.7% and 6.4% is consistent with prediabetes and should be confirmed with a follow-up test. For someone with known diabetes, a value <7% indicates that their diabetes is well controlled. A1c targets should be individualized based on duration of diabetes, age, comorbid conditions, and other considerations. This assay result is consistent with an increased risk of diabetes. Currently, no consensus exists regarding use of hemoglobin A1c for diagnosis of diabetes for children. Performed By: #### 1 0165, 867 #### [facility] [address], [address] [place] [address] Red Leader: Matt Beasley MD MAGNESIUMon 03-05-2022 Magnesium [Mass/Vol] 2.3 mg/dL Normal 1.5-2.5 [facility] Comment on above: Order Comment: FASTI NG:YES FASTING: YES Performed By: #### 1 7306, 905, 71582, 718, 39046, 622, 85864, 496 #### [facility] [address], [address] [place] [address] Red Leader: Matt Beasley MD PHOSPHATE ( PHOSPHORUS)on 03-05-2022 Phosphate [Mass/Vol] 4.5 mg/dL High 2.1-4.3 [facility] Comment on above: Performed By: #### 1 7306, 905, 16568, 718, 36620, 622, 66848, 496 #### [facility] [address], [address] [place] [address] Red Leader: Matt Beasley MD PTH, INTACT WITHOUT CALCIUMo n 03-05-2022 PARATHYROID HORMONE, INTACT 63 pg/mL Normal 16-77 [facility] Comment on above: Result Comment: Interpretive Guide Intact PTH Calcium ------- Normal Parathyroid Normal Normal Hypoparathyroidism Low or Low Normal Low Hyperparathyroidism Primary Normal or High High Secondary High Normal or Low Tertiary High High Non-Parathyroid Hypercalcemia Low or Low Normal High Performed By: #### 1 7306, 905, 21073, 718, 24222, 622, 12645, 496 #### [facility] [address], [address] [place] [address] Red Leader: Matt Beasley MD TSH W/REFLEX TO FT4on 2021 TSH W/REFLEX TO FT4 4.31 mIU/L Normal 0.40-4.50 [facility] Comment on above: Performed By: #### 1 7306, 905, 92892, 718, 95553, 622, 09480, 496 #### [facility] [address], [address] [place] [address] Red Leader: Matt Beasley MD URIC ACIDon 03-05-2022 Urate [Mass/Vol] 8.7 mg/dL High 2.5-7.0 [facility] Comment on above: Result Comment: Ther apeutic target for gout patients: <6.0 mg/dL Performed By: #### 1 7306, 905, 39171, 718, 30457, 622, 44301, 496 #### [facility] [address], [address] [place] [address] Red Leader: Matt Beasley MD VITAMIN D,25-OH,TOTAL,IAon 0 03-05-2022 VITAMIN D,25-OH,TOTAL,IA 48 ng/mL Normal 30-100 [facility] Comment on above: Result Comment: Marii min D Status 25-OH Vitamin D: Deficiency: <20 ng/mL Insufficiency: 20 - 29 ng/mL Optimal: > or = 30 ng/mL For 25-OH Vitamin D testing on patients on D2-supplementation and patients for whom quantitation of D2 and D3 fractions is required, the QuestAssureD(TM) 25-OH VIT D, (D2,D3), LC/MS/MS is recommended: order code 67757 (patients >2yrs). See Note 1 Note 1 For additional information, please refer to http://education.[facility]/faq/JDE778 (This link is being provided for informational/ educational purposes only.) Performed By: #### 1 7306, 905, 12936, 718, 08155, 622, 33139, 496 #### [facility] [address] [facility], [address] [place] [address] Red Leader: Matt Beasley MD US carotid doppler BIon 01-02 US carotid doppler BI [facility] [place] [address] [place] [address] Ultrasound Report Signed Patient: Yesy Valadez MR#: [id number] [birth year] : 1940 Acct:[id number] Age/Sex: 81 / F ADM Date: 01/21/22 Loc: RT Room: Type: [facility] Attending Dr: Onel Walters MD Ordering Provider: Onel Walters MD Date of Service: 01/21/22 US/US carotid doppler BI: I65.23 Copies to: Onel Walters MD CAROTID DUPLEX INDICATION: Surveillance study, multiple prior vascular risk factors such as diabetes hypertension coronary artery disease and hyperlipidemia PROCEDURE: Color-flow duplex scanning is used to interrogate the extracranial carotid arterial system, as well as both vertebral arteries. The proximal right internal carotid artery shows a highest peak systolic velocity of 53.1 cm/s with an end-diastolic velocity of 16.7 cm/s . The mid internal carotid artery measures 76.7 cm/s peak systolic with an end-diastolic velocity of 19.7 cm/s . The distal segment measures 108 cm/s peak systolic with an end diastolic velocity of 38.5 cm/s . The velocities of the right common carotid artery are 60.3 cm/s peak systolic and 11.2 cm/s end- diastolic proximally and 71.3 cm/s peak systolic and 18.7 cm/s end-diastolic distally. The peak systolic velocity ratio of the internal to the common carotid artery is 1.51 . The right external carotid artery measures 58 cm/s peak systolic. The right vertebral artery is patent at 46 cm/s peak systolic and with antegrade flow. The proximal left internal carotid artery shows a highest peak systolic velocity of 67.5 cm/s with an end-diastolic velocity of 22 cm/s . The mid internal carotid artery measures 93.3 cm/s peak systolic with an end-diastolic velocity of 29.6 cm/s . The distal segment measures 111 cm/s peak systolic with an end diastolic velocity of 36.4 cm/s . The velocities of the left common carotid artery are 63.4 cm/s peak systolic and 12.4 cm/s end-diastolic proximally and 68.6 cm/s peak systolic and 17.6 cm/s end-diastolic distally. The peak systolic velocity ratio of the internal to the common carotid artery is 1.62 . The left external carotid artery measures 81.8 cm/s peak systolic. The left vertebral artery is patent at 62.6 cm/s peak systolic with antegrade flow. US/US carotid doppler BI IMPRESSION: NO HEMODYNAMICALLY SIGNIFICANT STENOSIS OF EITHER EXTRACRANIAL INTERNAL CAROTID ARTERY. BOTH VERTEBRAL ARTERIES ARE PATENT WITH ANTEGRADE FLOW. Impression dictated by: Kevon Hickman MD01/22/2022 12:41 PM Dictation Location: [place] [address] Tech: Alissa Arguello Transcribed By: DENIA 01/22/22 1241 Dictated By: Kevon Hickman MD 01/22/22 1241 Signed By: 01/22/22 [facility] Normal [facility] Complete Pulmonary Functiono n 01-21-2022 Complete Pulmonary Function [facility] [place] [address] [place] [address] Pulmonary Function Signed Patient: Yesy Valadez MR#: [id number] [birth year] : 1940 Acct:[id number] Age/Sex: 81 / F ADM Date: 01/21/22 Loc: RT Room: Type: [facility] Attending Dr: Onel Walters MD Ordering Provider: Onel Walters MD Date of Service: 01/21/22 Accession #: Copies to: MD Onel Alejadnro MD HISTORY: This is an 81-year-old, 60-inch tall, 118-pound female, nonsmoker, referred by Dr. Onel Walters and normally followed by Dr. Zachary Ware with the diagnosis of dyspnea. The patient had inadequate durations of exhalation at 1.2 and 5.3 seconds respectively on the prebronchodilator and postbronchodilator efforts. Flow volume loop revealed good initial effort on the prebronchodilator study with irregularity of the expiratory flow with post-bronchodilator study revealing poor initial effort and overall poor expiratory flow. The patient had trouble following directions. Overall, these appear to be technically fair to poor studies. SPIROMETRY: Prebronchodilator FEV1 to forced vital capacity ratio is supranormal at 100% with a moderate reduction in the forced vital capacity to 1.18 L or 60% predicted, and a low normal FEV1 of 1.17 L or 83% predicted. The PWZ62-45% was supranormal at 2.15 L/sec or 214% predicted with this all likely related to the inadequate duration of exhalation. After a 350% longer duration of exhalation on the postbronchodilator effort, the forced vital capacity did improve by 25% to 1.47 L or 76% predicted. There is actually a 14% decline in the FEV1 and a 60% decline in the XFY02-29%. LUNG VOLUMES: Lung volumes by plethysmography indicate a minimal reduction in total lung capacity of 3.29 L or 79% predicted with a mild reduction in vital capacity of 1.46 L or 75% predicted, and minimal reduction in inspiratory capacity of 1.06 L or 79% predicted. Residual volume is normal at 1.83 L or 89% predicted, and residual volume to total lung capacity ratio is high normal at 56%. DIFFUSION CAPACITY: Single-breath diffusion capacity is mildly reduced at 10.4 mL/min/mmHg, which is 60% predicted, but normalizes when adjusted for alveolar volume. SUMMARY: These technically adequate pulmonary function studies are not clearly indicative of significant obstruction with minimal restriction noted. Diffusion capacity is mildly reduced, but normalizes when adjusted for alveolar volume suggesting ventilation-perfusion mismatching as the primary contributor to the decrease in single-breath diffusion capacity. Overall, these appear to be technically fair to poor pulmonary function studies and thus interpretation should be regarded with some degree of caution. Clinical correlation is recommended. Transcribed By: DEVON 01/22/22 1036 Dictated By: José Bucio MD 01/21/22 1240 Signed By: 01/22/22 1347 [facility] CREATININE BLOODon 2 Creatinine [Mass/Vol] 1.04 mg/dL Normal 0.60-1.20 [facility] Comment on above: Order Comment: No: D o not add to previous draw Performed By: #### 2 5656 #### [facility] [address] eGFR- non- 50 ml/min/1.73sq m Abnormal > 60 [facility] Comment on above: Order Comment: No: D o not add to previous draw Result Comment: Calc ulation may not be valid for patients over 70 years Performed By: #### 2 5656 #### [facility] [address] GFR/1.73 sq M.predicted shira g blacks MDRD (S/P/Bld) [Vol rate/Area] mL/min/{1.73_m2} Normal >60 [facility] Comment on above: Order Comment: No: D o not add to previous draw Result Comment: Calc ulation may not be valid for patients over 70 years Performed By: #### 2 5656 #### [facility] [address] Cardiovascular Lab Reporton 01-17-2022 Cardiovascular Lab Report [facility] Patient Name: Yesy Rodriguez [facility] MR #: [id number] Physician: Onel Tate Department of Vilma Walters Medicine Service Date: 01/16/2022 Division of Birthdate: 1940 Cardiology Room #: [id number] Adult Cardi[facility] Services [place] [address] Cardiovascular Laboratory Report INDICATION: The patient is an 81-year-old woman with multivalvular disease and recurrent admissions to the emergency room with pulmonary edema requiring diuresis. She was evaluated in Cardiology Clinic and referred for further evaluation of her cardiac condition by transesophageal echocardiography and cardiac catheterization. Transesophageal echocardiography was performed and was consistent with moderate aortic valve stenosis, moderate mitral regurgitation and moderate mitral stenosis. Her ventricular systolic function is normal. Her left atrium is severely enlarged. She is now brought to the veterinarian laboratory animal care for cardiac catheterization. PROCEDURES: 1. Right heart catheterization. 2. Left heart catheterization. 3. Mitral valve study. 4. Aortic valve study. 5. Bilateral selective coronary angiography. 6. Limited right common femoral angiography. 7. Access into the right common femoral artery and vein under ultrasound guidance. METHODS: Procedure was explained to the patient with risks and benefits. She signed consent. She was brought to veterinarian laboratory animal care in a fasting state. The right groin area was prepped and draped in usual fashion. Micropuncture technique was used for access in the right common femoral artery. Inner cannula angiography was performed followed by upsizing to a 4-Puerto Rican x 11 cm sheath. Access was obtained using same technique in the right common femoral vein and a 6-Puerto Rican x 11 cm sheath was placed. A 6-Puerto Rican Orosco catheter was used for heart catheterization with measurement pressures and calculation of cardiac output using the estimated ROSE MARIE method. A 4-Puerto Rican JR4 diagnostic catheter was advanced to the ascending aorta. Then, using a straight Glidewire, the aortic valve was crossed and the catheter advanced to the left ventricular cavity. Left heart catheterization was performed. Mitral valve study was performed with simultaneous measurement of the pulmonary wedge pressure and left ventricular diastolic pressures. The Orosco catheter was removed. Pullback across the aortic valve was performed with measurement of pressures. Catheter was removed. Bilateral selective coronary angiography was then performed using 4-Puerto Rican JL4 and JR4 diagnostic catheters. Catheters were removed. Procedure was concluded. Manual compression was applied for hemostasis in the right common femoral artery and vein. She will be admitted for overnight observation. TOTAL SEDATION TIME: 0 minutes. TOTAL FLUORO TIME: 8.49 minutes. TOTAL AIR KERMA: 402 mGy. TOTAL CONTRAST VOLUME: 10 mL. HEMODYNAMICS: RA 13, RV 64/7, 11 PA 62/22, mean 41. Pulmonary capillary wedge pressure 25, AO 142/68, mean 98, LV 154/17, 23. Cardiac output 3.78, cardiac index 2.59, PA sat 63%, AO sat 94%. HR 80 bpm. LV and pulmonary capillary wedge measurements for the purpose of mitral valve study: LV 162/11, 18. Pulmonary capillary wedge pressure 26. Mitral valve mean gradient 10 mmHg, calculated area 1.2 cm2. Aortic peak to peak gradient 12 mmHg. Calculated area 1.1 cm2. CORONARY ANGIOGRAPHY: This is a right dominant circulation. Left main: Left main arises from left coronary cusp. It bifurcates into left anterior descending and circumflex vessels. Left main is free of any disease. Left anterior descending: This is a 50% mid segment stenosis. Circumflex vessel: This has a 40% proximal stenosis. Right coronary artery: This arises from the right coronary cusp. It is a large and dominant vessel. It has a 40% mid segment stenosis. Limited right common femoral angiography. This showed access to be in the right common femoral artery with no obstructive lesions noted in the femoral artery and its proximal branches. SUMMARY OF THE FINDINGS: 1. Moderate 3-vessel coronary artery disease with 50% mid LAD, 40% proximal circumflex and 40% mid RCA stenosis. 2. Severe pulmonary hypertension. 3. Moderately elevated right-sided filling pressures. 4. Ejsiwcws-pu-agaxbo elevation of the left-sided filling pressures. 5. Preserved cardiac output and cardiac index. 6. Moderate to severe mitral valve stenosis. 7. Moderate aortic valve stenosis. RECOMMENDATIONS: 1. Medical therapy for coronary artery disease. 2. Medical therapy for valvular disease appears to be the best option for this patient. Continue diuresis. 3. Consider additional rate control medications for example switching amlodipine to Cardizem. 4. The patient will be started on Eliquis 2.5 mg b.i.d. due to atrial fibrillation, which was noted on (more content not included)... Normal [facility] POC GLUCOSE LABon 01-17-2022 Glucose [Mass/Vol] 109 mg/dL High 70-100 [facility] Comment on above: Performed By: #### 8 5499 #### [facility] [address] BASIC METABOLIC PANELon 01-01 Calcium [Mass/Vol] 9.2 mg/dL Normal 8.6-10.3 [facility] Comment on above: Order Comment: This order is a replacement of the rejected order with accession number [id number]. Performed By: #### 0 0071 #### [facility] [address] [facility]. [address] Chloride [Moles/Vol] 105 mmol/L Normal 98-107 [facility] Comment on above: Order Comment: This order is a replacement of the rejected order with accession number [id number]. Performed By: #### 0 0071 #### [facility] [address] [place] [address], [facility] CO2 [Moles/Vol] 26 mmol/L Normal 21-31 [facility] Comment on above: Order Comment: This order is a replacement of the rejected order with accession number [id number]. Performed By: #### 0 0071 #### [facility] [address] [place] [address], [place] Creatinine [Mass/Vol] 1.27 mg/dL High 0.60-1.20 [facility] Comment on above: Order Comment: This order is a replacement of the rejected order with accession number [id number]. Performed By: #### 0 0071 #### [facility] [address] [place] [address], [facility] eGFR- 49 ml/min/1.73sq m Abnormal >60 [facility] Comment on above: Order Comment: This order is a replacement of the rejected order with accession number [id number]. Result Comment: Calc ulation may not be valid for patients over 70 years Performed By: #### 0 0071 #### [facility] [address] [address], [facility] eGFR- non- 40 ml/min/1.73sq m Abnormal > 60 [facility] Comment on above: Order Comment: This order is a replacement of the rejected order with accession number [id number]. Result Comment: Calc ulation may not be valid for patients over 70 years Performed By: #### 0 0071 #### [facility] [address] [place] [address], [place] Glucose [Mass/Vol] 113 mg/dL High 70-100 [facility] Comment on above: Order Comment: This order is a replacement of the rejected order with accession number [id number]. Performed By: #### 0 0071 #### [facility] [address] [place] [address], [place] Potassium [Moles/Vol] 4.0 mmol/L Normal 3.5-5.[address] [facility] Comment on above: Order Comment: This order is a replacement of the rejected order with accession number [id number]. Performed By: #### 0 0071 #### [facility] [address] [place] [address], [facility] Sodium [Moles/Vol] 140 mmol/L Normal 136-145 [facility] Comment on above: Order Comment: This order is a replacement of the rejected order with accession number [id number]. Performed By: #### 0 0071 #### [facility] [address] [place] [address], [facility] Urea nitrogen [Mass/Vol] 48 mg/dL High 7-25 [facility] Comment on above: Order Comment: This order is a replacement of the rejected order with accession number [id number]. Performed By: #### 0 0071 #### [facility] [address] [address], [facility] Calcium [Mass/Vol] 9.3 mg/dL Normal 8.6-10.3 [facility] Comment on above: Performed By: #### 0 0071 #### [facility] [address] [address], [facility] Chloride [Moles/Vol] 106 mmol/L Normal 98-107 [facility] Comment on above: Performed By: #### 0 0071 #### [facility] [address] [place] [address], [place] CO2 [Moles/Vol] 27 mmol/L Normal 21-31 [facility] Comment on above: Performed By: #### 0 0071 #### [facility] [address] [place] [address], [place] Creatinine [Mass/Vol] 1.47 mg/dL High 0.60-1.20 [facility] Comment on above: Performed By: #### 0 0071 #### [facility] [address] [place] [address], [facility] eGFR- 41 ml/min/1.73sq m Abnormal >60 [facility] Comment on above: Result Comment: Calc ulation may not be valid for patients over 70 years Performed By: #### 0 0071 #### [facility] [address] [place] [address], [facility] eGFR- non- 34 ml/min/1.73sq m Abnormal > 60 [facility] Comment on above: Result Comment: Calc ulation may not be valid for patients over 70 years Performed By: #### 0 0071 #### [facility] [address] [place] [address], [facility] Glucose [Mass/Vol] 107 mg/dL High 70-100 [facility] Comment on above: Performed By: #### 0 0071 #### [facility] [address] [place] [address], [facility] Potassium [Moles/Vol] 4.5 mmol/L Normal 3.5-5.1 [facility] Comment on above: Performed By: #### 0 0071 #### [facility] [address] [place] [address], [facility] Sodium [Moles/Vol] 141 mmol/L Normal 136-145 [facility] Comment on above: Performed By: #### 0 0071 #### [facility] [address] [place] [id number], [facility] Urea nitrogen [Mass/Vol] 51 mg/dL High 7-25 [facility] Comment on above: Performed By: #### 0 0071 #### [facility] [address] [place] [address], [facility] CBC COMPLETE BLOOD COUNTon 0 - Erythrocyte distribution wid th (RBC) [Ratio] 15.6 % High 11.5-15.0 [facility] Comment on above: Performed By: #### 5 0608 #### [facility] [address] Hematocrit (Bld) [Volume fraction] 39.3 % Normal 36.0-45.0 [facility] Comment on above: Performed By: #### 5 0608 #### [facility] [address] [place] [address], [facility] Hemoglobin (Bld) [Mass/Vol] 12.2 g/dL Normal 12.0-15. 0 [facility] Comment on above: Performed By: #### 5 0608 #### [facility] [address] [facility]. [address] MCH (RBC) [Entitic mass] 28.7 pg Normal 27.0-33.0 [facility] Comment on above: Performed By: #### 5 0608 #### [facility] [address] MCHC (RBC) [Mass/Vol] 31.0 g/dL Low 32.0-35.0 [facility] Comment on above: Performed By: #### 5 0608 #### [facility] [address] [facility]. [address] MCV (RBC) [Entitic vol] 92.5 fL Normal 82.0-98.0 T nia [facility] Comment on above: Performed By: #### 5 0608 #### [facility] [address] [facility]. [address] Nucleated RBC/100 WBC (Bld) [Ratio] 0 % Normal 0-0 The [facility] Comment on above: Performed By: #### 5 0608 #### [facility] [address] [place] [address], [facility] PLAT CNT 278 10*3/uL Normal 150-400 [facility] Comment on above: Performed By: #### 5 0608 #### [facility] [address] [facility] [place] [address], [facility] RBC (Bld) [#/Vol] 4.25 10*6/uL Normal 3.80-5.00 The [facility] Comment on above: Performed By: #### 5 0608 #### [facility] [address] [place] [address], [facility] WBC (Bld) [#/Vol] 8.68 10*3/uL Normal 4.00-10.60 The [facility] Comment on above: Performed By: #### 5 0608 #### [facility] [address] [place] [place] [address], [facility] BASIC METABOLIC PANELon 12-01 Calcium [Mass/Vol] 10.2 mg/dL Normal 8.6-10.4 [facility] Comment on above: Order Comment: FASTI NG:YESFASTING: YES Performed By: #### 1 164, 867 #### [facility] [address], [address] [place] [address] Red Leader: Matt Beasley MD Chloride [Moles/Vol] 100 mmol/L Normal 98-110 [facility] Comment on above: Order Comment: FASTI NG:YESFASTING: YES Performed By: #### 1 016, 867 #### [facility] [place] [address] Red Leader: Matt Beasley MD CO2 [Moles/Vol] 28 mmol/L Normal 20-32 [facility] Comment on above: Order Comment: FASTI NG:YESFASTING: YES Performed By: #### 1 164, 867 #### [facility] [place] [address] Red Leader: Matt Beasley MD Creatinine [Mass/Vol] 1.54 mg/dL High 0.60-0.[address] [facility] Comment on above: Order Comment: FASTI NG:YESFASTING: YES Result Comment: For patients >49 years of age, the reference limit for Creatinine is approximately 13% higher for people identified as -Swazi. Performed By: #### 1 164, 867 #### [facility] [address], [address] [place] [address] Red Leader: Matt Beasley MD eGFR NON-AFR. BERMUDIAN 31 mL/min/1.73m2 Low > OR = 60 [facility] Comment on above: Order Comment: FASTI NG:YESFASTING: YES Performed By: #### 1 164, 867 #### [facility] [address], [address] [place] [address] Red Leader: Matt Beasley MD GFR/1.73 sq M.predicted shira g blacks MDRD (S/P/Bld) [Vol rate/Area] 36 mL/min/{1.73_m2} Low > OR = 60 [facility] Comment on above: Order Comment: FASTI NG:YESFASTING: YES Performed By: #### 1 164, 867 #### [facility] [address], [address] [place] [address] Red Leader: Matt Beasley MD Glucose [Mass/Vol] 119 mg/dL High 65-99 [facility] Comment on above: Order Comment: FASTI NG:YESFASTING: YES Result Comment: Fasting reference interval For someone without known diabetes, a glucose value between 100 and 125 mg/dL is consistent with prediabetes and should be confirmed with a follow-up test. Performed By: #### 1 164, 867 #### [facility] [address], [address] [place] [address] Red Leader: Matt Beasley MD Potassium [Moles/Vol] 4.1 mmol/L Normal 3.5-5.[address] [facility] Comment on above: Order Comment: FASTI NG:YESFASTING: YES Performed By: #### 1 164, 867 #### [facility] [address], [address] [place] [address] Red Leader: Matt Beasley MD Sodium [Moles/Vol] 140 mmol/L Normal 135-146 [facility] Comment on above: Order Comment: FASTI NG:YESFASTING: YES Performed By: #### 1 164, 867 #### [facility] [place] [address] Red Leader: Matt Beasley MD Urea nitrogen [Mass/Vol] 45 mg/dL High 7-25 [facility] Comment on above: Order Comment: FASTI NG:YESFASTING: YES Performed By: #### 1 0165, 867 #### [facility] [place] [address] Red Leader: Matt Beasley MD Urea nitrogen/Creatinine [Mass ratio] 29 mg/mg High 6-22 [facility] Comment on above: Order Comment: FASTI NG:YESFASTING: YES Performed By: #### 1 016, 867 #### [facility] [place] [address] Red Leader: Matt Beasley MD BASIC METABOLIC PANELon 11-2 Calcium [Mass/Vol] 10.1 mg/dL Normal 8.6-10.4 [facility] Comment on above: Performed By: #### 1 0165, 867 #### [facility] [place] [address] Red Leader: Matt Beasley MD Chloride [Moles/Vol] 103 mmol/L Normal 98-110 [facility] Comment on above: Performed By: #### 1 164, 867 #### [facility] [place] [address] Red Leader: Matt Beasley MD CO2 [Moles/Vol] 28 mmol/L Normal 20-32 [facility] Comment on above: Performed By: #### 1 016, 867 #### [facility] [place] [address] Red Leader: Matt Beasley MD Creatinine [Mass/Vol] 1.29 mg/dL High 0.60-0.[address] [facility] Comment on above: Result Comment: For patients >49 years of age, the reference limit for Creatinine is approximately 13% higher for people identified as -Swazi. Performed By: #### 1 164, 867 #### [facility] [place] [address] Red Leader: Matt Beasley MD eGFR NON-AFR. BERMUDIAN 38 mL/min/1.73m2 Low > OR = 60 [facility] Comment on above: Performed By: #### 1 164, 867 #### [facility] [place] [address] Red Leader: Matt Beasley MD GFR/1.73 sq M.predicted shira g blacks MDRD (S/P/Bld) [Vol rate/Area] 44 mL/min/{1.73_m2} Low > OR = 60 [facility] Comment on above: Performed By: #### 1 164, 867 #### [facility] [place] [address] Red Leader: Matt Beasley MD Glucose [Mass/Vol] 107 mg/dL High 65-99 [facility] Comment on above: Result Comment: Fasting reference interval For someone without known diabetes, a glucose value between 100 and 125 mg/dL is consistent with prediabetes and should be confirmed with a follow-up test. Performed By: #### 1 164, 867 #### [facility] [place] [address] Red Leader: Matt Beasley MD Potassium [Moles/Vol] 4.1 mmol/L Normal 3.5-5.[address] [facility] Comment on above: Performed By: #### 1 164, 867 #### [facility] [place] [address] Red Leader: Matt Beasley MD Sodium [Moles/Vol] 139 mmol/L Normal 135-146 [facility] Comment on above: Performed By: #### 1 016, 867 #### [facility] [address] [place] [address] Red Leader: Matt Beasley MD Urea nitrogen [Mass/Vol] 30 mg/dL High 7- [facility] Comment on above: Performed By: #### 1 0165, 867 #### [facility] [address], [address] [place] [address] Red Leader: Matt Beasley MD Urea nitrogen/Creatinine [Mass ratio] 23 mg/mg High 6- [facility] Comment on above: Performed By: #### 1 0165, 867 #### [facility] [address], [address] [place] [address] Red Leader: Matt Beasley MD T4 (THYROXINE), TOTALon 10-02 T4 [Mass/Vol] 7.8 ug/dL Normal 5.1-11.9 [facility] Comment on above: Performed By: #### 1 0165, 867 #### [facility] [address], [address] [place] [address] Red Leader: Matt Beasley MD TSHon 10-23-2021 TSH Qn 7.48 m[IU]/L High 0.40-4.50 [facility] Comment on above: Performed By: #### 1 0165, 867 #### [facility] [address], [address] [place] [address] Red Leader: Matt Beasley MD CA 125on 09-26-2021 CA 125 26 U/mL Normal <38 [facility] Comment on above: Performed By: #### C A125 #### [facility] [address] [place] [address] Manager Cost: Andrew Blakely MD CA 125Ordered By: Anabel Babb on on 09-26-2021 CA 125 26 U/mL <38 [employer] Phone: [facility] Phone: Microscopic UrinalysisOrdere d By: Anabel Cuevas on 09-26-2021 - [facility] Work Phone: Amorphous, UA NOT REPORTED None [facility] Work Phone: Bacteria, UA NOT REPORTED None [facility] Work Phone: Casts UA NOT REPORTED [facility] Work Phone: Crystals, UA NOT REPORTED None /HPF [facility] Work Phone: Epithelial Cells UA 0 TO 2 [facility] Work Phone: Mucus, UA NOT REPORTED None [facility] Work Phone: Other Observations UA NOT REPORTED NOT REQ. M [facility] Work Phone: RBC, UA 2 TO 5 [facility] Work Phone: Comment on above: Reference range defi margarita for non-centrifuged specimen. Renal Epithelial, UA NOT REPORTED 0 /[facility] Work Phone: Trichomonas, UA NOT REPORTED None [facility] Work Phone: WBC, UA 0 TO 2 [facility] Work Phone: Yeast, UA NOT REPORTED None [facility] Work Phone: [facility] Work Phone: UA w/Reflex Cultureon 2020 Bilirubin, SemiQt,Ur Negative Normal NEG [facility] Comment on above: Performed By: #### U AX, UMICAO #### [facility] [address] [place], [place] [id number] Manager Cost: Andrew Blakely MD Blood, Urine Negative Normal NEG [facility] Comment on above: Performed By: #### U AX, UMICAO #### [facility] [address] [place], [place] [phone] Manager Cost: Andrew Blakely MD Clarity (U) Clear Normal CLEAR [facility] Comment on above: Performed By: #### U AX, UMICAO #### [facility] [address] [place] [address] Manager Cost: Andrew Blakely MD Color (U) Yellow Normal YEL [facility] Comment on above: Performed By: #### U AX, UMICAO #### [facility] [address] [place] [address] Manager Cost: Andrew Blakely MD Glucose Ql (U) Negative Normal NEG [facility] Comment on above: Performed By: #### U AX, UMICAO #### [facility] [address] [place] [address] Manager Cost: Andrew Blakely MD Ketones Ql (U) Negative Normal NEG [facility] Comment on above: Performed By: #### U AX, UMICAO #### [address] [address] Manager Cost: Andrew Blakely MD Leukocyte esterase Test stri p Ql (U) TRACE Abnormal NEG [facility] Comment on above: Performed By: #### U AX, UMICAO #### [facility] [address] [place] [address] Manager Cost: Andrew Blakely MD Nitrite,Ur Negative Normal NEG [facility] Comment on above: Performed By: #### U AX, UMICAO #### [facility] [address] [place] [address] Manager Cost: Andrew Blakely MD PH,Ur 7.0 Normal 5.0-8.0 [facility] Comment on above: Performed By: #### U AX, UMICAO #### [facility] [address] [place] [address] Manager Cost: Andrew Blakely MD Protein Ql (U) Negative Normal NEG [facility] Comment on above: Performed By: #### U AX, UMICAO #### [facility] [address] [place] [address] Manager Cost: Andrew Blakely MD Spec. [place],Ur 1.015 Normal 1.005-1.030 [facility] Comment on above: Performed By: #### U AX, UMICAO #### [facility] [address] [place] [address] Manager Cost: Andrew Blakely MD Urobilinogen,Ur Normal Normal NORM [facility] Comment on above: Performed By: #### U AX, UMICAO #### [facility] [address] [place] [address] Manager Cost: Andrew Blakely MD Comment NOT REPORTED Normal [facility] Comment on above: Performed By: #### U AX, UMICAO #### [facility] [address] [place] [phone] Manager Cost: Andrew Blakely MD Urinalysis Reflex to Culture Ordered By: Anabel Cuevas on 09-26-2021 Bilirubin Urine Negative NEGATIVE [facility] Work Phone: Color, UA Yellow Yellow [facility] Work Phone: Glucose, Ur Negative NEGATIVE [facility] Work Phone: Interpretation and review of laboratory results Abnormal [facility] Work Phone: Ketones Ql (U) Negative NEGATIVE [facility] Work Phone: Leukocyte esterase Test strip Ql (U) TRACE Abnormal NEGATIVE [facility] Work Phone: Nitrite, Urine Negative NEGATIVE [facility] Work Phone: pH, UA 7.0 [facility] Work Phone: Protein, UA Negative NEGATIVE [facility] Work Phone: Specific [place], UA 1.015 [facility] Work Phone: Turbidity UA Clear Clear [facility] Work Phone: Urinalysis Comments NOT REPORTED [facility] Work Phone: Urine Hgb Negative NEGATIVE [facility] Work Phone: Urobilinogen, Urine Normal Normal [facility] Work Phone: [facility] Work Phone: Urinalysis,Microon 1 ----- Normal [facility] Comment on above: Performed By: #### U AX, UMICAO #### [address] [address] Manager Cost: Andrew Blakely MD Epithelial cells LM Ql (Urine sed) 0 TO 2 Normal 0 -5 [facility] Comment on above: Performed By: #### U AX, UMICAO #### [facility] [address] [place] [address] Manager Cost: Andrew Blakely MD Urine RBC's 2 TO 5 Normal 0-4 [facility] Comment on above: Result Comment: Refe rence range defined for non-centrifuged specimen. Performed By: #### U AX, UMICAO #### [facility] [address] [place] [address] Manager Cost: Andrew Blakely MD Urine WBC's 0 TO 2 Normal 0-5 [facility] Comment on above: Performed By: #### U AX, UMICAO #### [facility] [address] [place] [address] Manager Cost: Andrew Blakely MD Amorphous sediment LM Ql (Ur ine sed) NOT REPORTED Normal NONE [facility] Comment on above: Performed By: #### U AX, UMICAO #### [facility] [address] [place] [address] Manager Cost: Andrew Blakely MD Bacteria NOT REPORTED Normal NONE [facility] Comment on above: Performed By: #### U AX, UMICAO #### [facility] [address] [place] [address] Manager Cost: Andrew Blakely MD Casts NOT REPORTED Normal 0-8 [facility] Comment on above: Performed By: #### U AX, UMICAO #### [facility] [address] [place] [address] Manager Cost: Andrew Blakely MD Crystals LM Nom (Urine sed) NOT REPORTED Normal NONE [facility] Comment on above: Performed By: #### U AX, UMICAO #### [facility] [address] [place] [address] Manager Cost: Andrew Blakely MD Epithelial, Renal NOT REPORTED Normal 0 [facility] Comment on above: Performed By: #### U AX, UMICAO #### [facility] [address] [place] [address] Manager Cost: Andrew Blakely MD Mucus Strands NOT REPORTED Normal [facility] Comment on above: Performed By: #### U AX, UMICAO #### [facility] [address] [place] [address] Manager Cost: Andrew Blakely MD Other Observations NOT REPORTED Normal NREQ [facility] Comment on above: Performed By: #### U AX, UMICAO #### [facility] [address] [place] [address] Manager Cost: Andrew Blakely MD Trichomonas NOT REPORTED Normal NONE [facility] Comment on above: Performed By: #### U AX, UMICAO #### [facility] [address] [place] [address] Manager Cost: Andrew Blakely MD Yeast NOT REPORTED Normal [facility] Comment on above: Performed By: #### U CALVIN SAPP #### [facility] [address] [place] [address] Manager Cost: Andrew Blakely MD [facility] 07-27-2021 Albumin [Mass/Vol] 4.4 g/dL Normal 3.6-5.1 [facility] Comment on above: Performed By: #### 1 016, 867 #### [facility] of [address], [address] [place] [address] Red Leader: Matt Beasley MD Albumin/Globulin [Mass ratio] 1.8 {ratio} Normal 1.0-2 .5 [facility] Comment on above: Performed By: #### 1 016, 867 #### [facility] of [place] [address] Red Leader: Matt Beasley MD ALP [Catalytic activity/Vol] 67 U/L Normal 37-153 [facility] Comment on above: Performed By: #### 1 016, 867 #### [facility] of [address], [address] [place] [address] Red Leader: Matt Beasley MD ALT [Catalytic activity/Vol] 10 U/L Normal 6-29 [facility] Comment on above: Performed By: #### 1 016, 867 #### [facility] [place] [address] Red Leader: Matt Beasley MD AST [Catalytic activity/Vol] 17 U/L Normal 10-35 [facility] Comment on above: Performed By: #### 1 016, 867 #### [facility] [place] [address] Red Leader: Matt Beasley MD Bilirubin [Mass/Vol] 0.4 mg/dL Normal 0.2-1.2 [facility] Comment on above: Performed By: #### 1 016, 867 #### [facility] of [place] [address] Red Leader: Matt Beasley MD Calcium [Mass/Vol] 9.8 mg/dL Normal 8.6-10.4 [facility] Comment on above: Performed By: #### 1 016, 867 #### [facility] [place] [address] Red Leader: Matt Beasley MD Chloride [Moles/Vol] 104 mmol/L Normal 98-110 [facility] Comment on above: Performed By: #### 1 016, 867 #### [facility] [place] [address] Red Leader: Matt Beasley MD CO2 [Moles/Vol] 25 mmol/L Normal 20-32 [facility] Comment on above: Performed By: #### 1 016, 867 #### [facility] [place] [address] Red Leader: Matt Beasley MD Creatinine [Mass/Vol] 1.37 mg/dL High 0.60-0.[address] [facility] Comment on above: Result Comment: For patients >49 years of age, the reference limit for Creatinine is approximately 13% higher for people identified as -Swazi. Performed By: #### 1 164, 867 #### [facility] [place] [address] Red Leader: Matt Beasley MD eGFR NON-AFR. BERMUDIAN 36 mL/min/1.73m2 Low > OR = 60 [facility] Comment on above: Performed By: #### 1 016, 867 #### [facility] [place] [address] Red Leader: Matt Beasley MD GFR/1.73 sq M.predicted shira g blacks MDRD (S/P/Bld) [Vol rate/Area] 41 mL/min/{1.73_m2} Low > OR = 60 [facility] Comment on above: Performed By: #### 1 016, 867 #### [facility] [address] [place] [address] Red Leader: Matt Beasley MD Globulin (S) [Mass/Vol] 2.5 g/dL Normal 1.9-3.7 [facility] Comment on above: Performed By: #### 1 0165, 867 #### [facility] [address], [address] [place] [address] Red Leader: Matt Beasley MD Glucose [Mass/Vol] 97 mg/dL Normal 65-99 [facility] Comment on above: Result Comment: Fasting reference interval Performed By: #### 1 0165, 867 #### [facility] [place] [address] Red Leader: Matt Beasley MD Potassium [Moles/Vol] 5.3 mmol/L Normal 3.5-5.[address] [facility] Comment on above: Performed By: #### 1 0165, 867 #### [facility] [place] [address] Red Leader: Matt Beasley MD Protein [Mass/Vol] 6.9 g/dL Normal 6.1-8.1 [facility] Comment on above: Performed By: #### 1 0165, 867 #### [facility] [place] [address] Red Leader: Matt Beasley MD Sodium [Moles/Vol] 137 mmol/L Normal 135-146 [facility] Comment on above: Performed By: #### 1 0165, 867 #### [facility] of [place] [address] Red Leader: Matt Beasley MD Urea nitrogen [Mass/Vol] 25 mg/dL Normal 7-25 [facility] Comment on above: Performed By: #### 1 0165, 867 #### [facility] [place] [address] Red Leader: Matt Beasley MD Urea nitrogen/Creatinine [Mass ratio] 18 mg/mg Normal 6-22 [facility] Comment on above: Performed By: #### 1 016, 867 #### [facility] [address], [address] [place] [address] Red Leader: Matt Beasley MD LIPID PANEL, [facility] 08- Cholesterol [Mass/Vol] 159 mg/dL Normal <200 [facility] Comment on above: Performed By: #### 1 0165, 867 #### [facility] [address], [address] [place] [address] Red Leader: Matt Beasley MD Cholesterol in HDL [Mass/Vol] 63 mg/dL Normal > OR = 50 [facility] Comment on above: Performed By: #### 1 0165, 867 #### [facility] [address], [address] [place] [address] Red Leader: Matt Beasley MD Cholesterol in LDL [Mass/Vol] 73 mg/dL Normal [facility] Comment on above: Result Comment: Refe rence range: <100 Desirable range <100 mg/dL for primary prevention; <70 mg/dL for patients with CHD or diabetic patients with > or = 2 CHD risk factors. LDL-C is now calculated using the Sawyer-Hitesh calculation, which is a validated novel method providing better accuracy than the Friedewald equation in the estimation of LDL-C. Sawyer YIP et al. TORY. 2013;310(19): 7694-2175 (http://education.[employer].Liquid Engines/faq/FUK646) Performed By: #### 1 016, 867 #### [facility] [address], [address] [place] [address] Red Leader: Matt Beasley MD Cholesterol.total/Cholestero l in HDL [Mass ratio] 2.5 {ratio} Normal <5.0 [facility] Comment on above: Performed By: #### 1 0165, 867 #### [facility] [address], [address] [place] [address] Red Leader: Matt Beasley MD NON HDL CHOLESTEROL 96 mg/dL (calc) Normal <130 [facility] Comment on above: Result Comment: For patients with diabetes plus 1 major ASCVD risk factor, treating to a non-HDL-C goal of <100 mg/dL (LDL-C of <70 mg/dL) is considered a therapeutic option. Performed By: #### 1 0165, 867 #### [facility] [address], [address] [place] [address] Red Leader: Matt Beasley MD Triglyceride [Mass/Vol] 156 mg/dL High <150 [facility] Comment on above: Performed By: #### 1 164, 867 #### [facility] [address], [address] [place] [address] Red Leader: Matt Beasley MD UA w/Reflex Cultureon 2020 Bilirubin, SemiQt,Ur Negative Normal NEG [facility] Comment on above: Performed By: #### U AX UMICAO #### [facility] [address] [place] [address] Manager Cost: Andrew Blakely MD Blood, Urine Negative Normal NEG [facility] Comment on above: Performed By: #### U AX, UMICAO #### [employer] [address] [place] [address] Manager Cost: Andrew Blakely MD Clarity (U) CLEAR Normal CLEAR [facility] Comment on above: Performed By: #### U AX, UMICAO #### [employer] [address] [place] [address] Manager Cost: Andrew Blakely MD Color (U) YELLOW Normal YEL [facility] Comment on above: Performed By: #### U AX, UMICAO #### [employer] [employer] [address] [place] [address] Manager Cost: Andrew Blakely MD Glucose Ql (U) Negative Normal NEG [facility] Comment on above: Performed By: #### U AX, UMICAO #### [address] [address] Manager Cost: Andrew Blakely MD Ketones Ql (U) Negative Normal NEG [facility] Comment on above: Performed By: #### U AX, UMICAO #### [address] [address] Manager Cost: Adnrew Blakely MD Leukocyte esterase Test stri p Ql (U) MODERATE Abnormal NEG [facility] Comment on above: Performed By: #### U AX, UMICAO #### [address] [address] Manager Cost: Andrew Blakely MD Nitrite,Ur Negative Normal NEG [facility] Comment on above: Performed By: #### U AX, UMICAO #### [address] [address] Manager Cost: Andrew Blakely MD PH,Ur 6.5 Normal 5.0-8.0 [facility] Comment on above: Performed By: #### U AX, UMICAO #### [address] [address] Manager Cost: Andrew Blakely MD Protein Ql (U) Negative Normal NEG [facility] Comment on above: Performed By: #### U AX, UMICAO #### [address] [address] Manager Cost: Andrew Blakely MD Spec. [place],Ur 1.006 Normal 1.005-1.030 [facility] Comment on above: Performed By: #### U AX, UMICAO #### [address] [address] Manager Cost: Andrew Blakely MD Urobilinogen,Ur Normal Normal NORM [facility] Comment on above: Performed By: #### U AX, UMICAO #### [facility] [address] [place] [id number] Manager Cost: Andrew Blakely MD Comment NOT REPORTED Normal [facility] Comment on above: Performed By: #### U AX, UMICAO #### [facility] [address] [place] [id number] Manager Cost: Andrew Blakely MD Urinalysis,Microon 1 ----- Normal [facility] Comment on above: Performed By: #### U AX, UMICAO #### [address] [address] Manager Cost: Andrew Blakely MD Bacteria MANY Abnormal NONE [facility] Comment on above: Performed By: #### U AX, UMICAO #### [address] [id number] Manager Cost: Andrew Blakely MD Epithelial cells LM Ql (Urine sed) 0 TO 2 Normal 0 -5 [facility] Comment on above: Performed By: #### U AX, UMICAO #### [address] [id number] Manager Cost: Andrew Blakely MD Urine RBC's 0 TO 2 Normal 0-2 [facility] Comment on above: Performed By: #### U AX, UMICAO #### [facility] [address] [place] [id number] Manager Cost: Andrew Blakely MD Urine WBC's 2 TO 5 Normal 0-5 [facility] Comment on above: Performed By: #### U AX, UMICAO #### [facility] [address] [place] [id number] Manager Cost: Andrew Blakely MD Amorphous sediment LM Ql (Ur ine sed) NOT REPORTED Normal [facility] Comment on above: Performed By: #### U AX, UMICAO #### [facility] [address] [place] [address] Manager Cost: Andrew Blakely MD Casts NOT REPORTED Normal 0-2 [facility] Comment on above: Performed By: #### U AX, UMICAO #### [facility] [address] [place] [address] Manager Cost: Andrew Blakely MD Crystals LM Nom (Urine sed) NOT REPORTED Normal NONE [facility] Comment on above: Performed By: #### U AX, UMICAO #### [facility] [address] [place] [id number] Manager Cost: Andrew Blakely MD Epithelial, Renal NOT REPORTED Normal 0 [facility] Comment on above: Performed By: #### U AX, UMICAO #### [facility] [address] [place] [id number] Manager Cost: Andrew Blakely MD Mucus Strands NOT REPORTED Normal NONE [facility] Comment on above: Performed By: #### U AX, UMICAO #### [facility] [address] [place] [id number] Manager Cost: Andrew Blakely MD Other Observations NOT REPORTED Normal NREQ [facility] Comment on above: Performed By: #### U AX, UMICAO #### [facility] [address] [place] [id number] Manager Cost: Andrew Blakely MD Trichomonas NOT REPORTED Normal NONE [facility] Comment on above: Performed By: #### U AX, UMICAO #### [facility] [address] [place] [id number] Manager Cost: Andrew Blakely MD Yeast NOT REPORTED Normal NONE [facility] Comment on above: Performed By: #### U AX, UMICAO #### [facility] [address] [place] [id number] Manager Cost: Andrew Blakely MD Vital Signs Date Time Vital Sign Value Performing Clinician Facility 07-08-2023 11:00-0400 Body height 149.86 cm Albin Englands [facility] Other 07-08-2023 11:00-0400 Body mass index (BMI) [Ratio] 26.17 kg/m2 Albin Englands [facility] Other 07-08-2023 11:00-0400 Body temperature 96.5 [degF] Albin Englands [facility] Other 07-08-2023 11:00-0400 Body weight 58.79 kg Albin Englands [facility] Other 07-08-2023 11:00-0400 Diastolic blood pressure 80 mm[Hg] Albin Englands [facility] Other 07-08-2023 11:00-0400 Respiratory rate 18 /min Albin Englands [facility] Other 07-08-2023 11:00-0400 SaO2% (BldA) [Mass fraction] 96 % Albin Englands [facility] Other 07-08-2023 11:00-0400 Systolic blood pressure 140 mm[Hg] Albin Englands [facility] Other 01-21-2023 11:20-0500 Body height 149.86 cm Albin Englands [facility] Other 01-21-2023 11:20-0500 Body mass index (BMI) [Ratio] 25.85 kg/m2 Azjulio Bakhous [facility] Other 01-21-2023 11:20-0500 Body weight 58.06 kg Aziz Bakhous [facility] Other 01-21-2023 11:20-0500 Diastolic blood pressure 73 mm[Hg] Aziz Bakhous [facility] Other 01-21-2023 11:20-0500 Respiratory rate 18 /min Aziz Bakhous [facility] Other 01-21-2023 11:20-0500 SaO2% (BldA) [Mass fraction] 98 % Azjulio Bakhous [facility] Other 01-21-2023 11:20-0500 Systolic blood pressure 121 mm[Hg] Aziz Bakhous [facility] Other 09-17-2022 15:40-0400 Body height 149.86 cm Azjulio Bakhous [facility] Other 09-17-2022 15:40-0400 Body mass index (BMI) [Ratio] 24.6 kg/m2 Aziz Bakhous [facility] Other 09-17-2022 15:40-0400 Body temperature 97.1 [degF] Aziz Bakhous [facility] Other 09-17-2022 15:40-0400 Body weight 55.25 kg Aziz Bakhous [facility] Other 09-17-2022 15:40-0400 Diastolic blood pressure 78 mm[Hg] Aziz Bakhous [facility] Other 09-17-2022 15:40-0400 Respiratory rate 18 /min Aziz Bakhous [facility] Other 09-17-2022 15:40-0400 SaO2% (BldA) [Mass fraction] 99 % Aziz Bakhous [facility] Other 09-17-2022 15:40-0400 Systolic blood pressure 140 mm[Hg] Aziz Bakhous [facility] Other 04-23-2022 15:40-0400 Body height 149.86 cm Aziz Bakhous [facility] Other 04-23-2022 15:40-0400 Body mass index (BMI) [Ratio] 22.94 kg/m2 Aziz Bakhous [facility] Other 04-23-2022 15:40-0400 Body temperature 96.4 [degF] Aziz Bakhous [facility] Other 04-23-2022 15:40-0400 Body weight 51.53 kg Aziz Bakhous [facility] Other 04-23-2022 15:40-0400 Diastolic blood pressure 82 mm[Hg] Aziz Bakhous [facility] Other 04-23-2022 15:40-0400 Respiratory rate 18 /min Aziz Bakhous [facility] Other 04-23-2022 15:40-0400 SaO2% (BldA) [Mass fraction] 99 % Albin Bonner [facility] Other 04-23-2022 15:40-0400 Systolic blood pressure 149 mm[Hg] Albin Erazobrian [facility] Other Encounters Encounter Date Encounter Type Care Provider Facility Start: 09-10-2023 Telephone encounter [facility]bin [facility] Start: 09-10-2023 End: 09-10-[address] [facility] Start: 08-27-2023 End: 08-28-2023 ambulatory NADEEM FREDY [facility] Start: 07-08-2023 End: 07-08-2023 ambulatory Albin Bonner [facility] Other Start: 07-08-2023 Office outpatient visit 25 minutes Ablin Bonner [facility] Start: 05-07-2023 End: 05-07-[address] [facility] Start: 04-16-2023 End: 04-16-[address] [facility] Start: 03-17-2023 End: 03-18-2023 ambulatory DHEERAJ GARVINCKER Facility:H1 Start: 03-12-2023 End: 03-13-2023 ambulatory DHEERAJ VENTURA Facility:[facility]1 Start: 03-12-2023 End: 03-12-[address] [facility] Start: 03-10-2023 End: 03-11-[address] ONEL WALTERS Facility:[facility]1 Start: 02-05-2023 End: 02-06-[address] DOCTOR ALBRIGHT Facility:[facility]1 Start: 01-24-2023 End: 01-25-2023 ambulatory F[facility] Hurley [facility] Start: 01-24-2023 End: 01-24-2023 Subsequent hospital visit by physician José Maya MD Work Phone: [email or web address] Comment on above: History of ovarian c ancer Start: 01-22-2023 End: 01-22-2023 ambulatory Azjulio Bonner [facility] Other Start: 01-22-2023 Telephone encounter Azjulio Englands [facility] Start: 01-21-2023 End: 01-21-2023 ambulatory Azjulio Kaceyroberts Other [facility] Other Start: 01-21-2023 Office outpatient visit 25 minutes Azjulio Bonner [facility] [place] Start: 01-13-2023 End: 01-13-[address] DOCTOR ALBRIGHT Facility:[facility]1 Start: 01-13-2023 End: 01-14-[address] DOCTOR ALBRIGHT Facility:[facility]1 Start: 11-08-2022 End: 11-08-[address] ZACHARY WARE Facility:[facility]1 Start: 09-17-2022 End: 09-17-2022 ambulatory Albin Bonner [facility] Other Start: 09-17-2022 Office outpatient visit 25 minutes Azjulio Bonner [facility] [place] Start: 09-10-2022 End: 09-11-[address] DOCTOR ALBRIGHT Facility:[facility]1 Start: 08-21-2022 End: 08-22-2022 ambulatory KATHARINA JOVEL Facility:[facility]1 Start: 07-10-2022 End: 07-10-2022 Subsequent hospital visit by physician Zachary Ware Work Phone: [email or web address] Comment on above: 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 Start: 06-05-2022 End: 06-06-[address] ZACHARY WARE Facility:[facility]1 Start: 05-29-2022 End: 06-30-[address] ZACHARY WARE Facility:[facility]1 Start: 05-06-2022 End: 05-07-[address] ZACHARY WARE Facility:H1 Start: 04-23-2022 End: 04-23-2022 ambulatory Albin Kaceybrian Other [facility] [employer] Other Start: 04-23-2022 Office outpatient ne w 30 minutes Albin Bonner [facility] Start: 03-27-2022 End: 03-27-2022 Subsequent hospital visit by physician Zachary Ware Work Phone: [facility] Start: 09-26-2021 End: 09-27-2021 [facility] Start: 09-26-2021 End: 09-26-2021 Subsequent hospital visit by physician Zachary Ware Work Phone: [facility] Comment on above: Borderline epithelia l neoplasm of ovary; Gross hematuria Start: 07-18-2021 End: 07-19-2021 ambulatory ANABEL CUEVAS [facility] Procedures Date Procedure Procedure Detail Performing Clinician Start: 01-24-2023 Immunoassay tumor an tigen quantitative ca 125 Fide Granger DO Work Phone: Start: 07-10-2022 Immunoassay tumor an tigen quantitative ca 125 Iman Reyes PA-C Work Phone: Start: 03-27-2022 Basic metabolic pane l calcium total Onel Walters MD Work Phone: Start: 09-26-2021 Urinalysis microscop ic only Anabel Cuevas MD Work Phone: Start: 09-26-2021 Urnls dip stick/tabl et rgnt auto w/o microscopy Anabel Cuevas MD Work Phone: Start: 09-26-2021 Immunoassay tumor an tigen quantitative ca 125 Anabel Cuevas MD Work Phone: Plan of Treatment Date Care Activity Detail Author Start: 01-31-2023 End: 01-31-2023 Patient encounter procedure 01/31/2023 Office Visit Gynecologic Oncology José Warren MD [address], [address] [place] [address] [facility] [employer]GER Oncology Start: 01-05-2023 Creatinine measurement Creatinine [facility] Start: 01-05-2023 Potassium [Moles/volume] in Serum or Plasma Potassium [facility] [employer] Start: 08-01-2022 Influenza vaccination [facility] Start: 07-17-2022 End: 07-17-2022 Patient encounter procedure 07/17/2022 Office Visit Gynecologic Oncology José Warren MD [address], [address] [place] [address] [facility] [employer] MA[employer]GER Oncology Start: 07-01-2022 Influenza vaccination Flu vaccine (#1) [facility] Start: 01-23-2022 End: 01-23-2022 Patient encounter procedure 01/23/2022 Office Visit Gynecologic Oncology Anabel Cuevas MD [address] [place] [address] [phone] [facility] [employer] MANAGER Oncology Start: 01-02-2022 End: 01-02-2022 Patient encounter procedure 01/02/2022 Office Visit Gynecologic Oncology Anabel Cuevas MD [address] [place] [address] [phone] [facility] [employer] MANAGER Oncology Start: 08-01-2021 Influenza vaccination Flu vaccine (#1) [employer] Phone: Start: 06-12-2021 Annual Wellness Visit (AWV) Annual Wellness [facility]AWV) [facility] Start: 2003 Pneumococcal 65+ years Vaccine (1 of 1 - PPSV23) Pneumococcal 65+ years Vaccine (1 of 1 - PPSV23) [employer] Phone: Start: 1993 Screening for osteoporosis DEXA (modify frequency per FRAX score) [employer] Start: 1988 Shingles Vaccine (1 of 2) Shingles Vaccine (1 of 2) [facility] Start: 1957 DTaP/Tdap/Td vaccine (1 - Tdap) DTaP/Tdap/Td vaccine (1 - Tdap) [employer] Start: 1950 COVID-19 Vaccine (1) COVID-19 Vaccine (1) [employer] Phone: Start: 1950 Depression Screen Depression Screen [facility] Start: 1948 Lipid panel [facility] Start: 1944 Pneumococcal 65+ years Vaccine (1 - PCV) Pneumococcal 65+ years Vaccine (1 - PCV) [employer] Start: 1943 COVID-19 Vaccine (1) COVID-19 Vaccine (1) [employer] Start: 1938 COVID-19 Vaccine (#1) COVID-19 Vaccine (#1) [facility] [employer] Start: 1938 Annual Wellness Visit (AWV) Annual Wellness Visit (AWV) [employer] Start: 1938 Creatinine measurement Creatinine monitoring [employer] Phone: Start: 1938 Potassium monitoring Potassium monitoring [employer] Mobile Phone: Payers Date Payer Category Payer Medicare MEDICARE MEDICAR E PART A AND B [id number] 2000-Present [phone] [address] [address] [place] [address] [id number] 1959 Medicare [id number] 1938 Unknown [id number] [id number] 1938 Unknown [id number] [id number] 1938 Unknown [id number] 2.16.840.1.288697.3.579.2.593 1938 Unknown [id number] 2.16.840.1.212141.3.579.2.593 1938 Unknown [id number] 2.16.840.1.895358.3.579.2.593 1938 Unknown [id number] 2.16.840.1.403591.3.579.2.593 1938 Unknown [id number] 2.16.840.1.031268.3.579.2.593 1938 Unknown [id number] 2.16.840.1.292880.3.579.2.593 1938 Unknown [id number] 2.16.840.1.480574.3.579.2.593 1938 Unknown [id number] 2.16.840.1.878872.3.579.2.593 1938 Unknown [id number] 2.16.840.1.210103.3.579.2.593 1938 Unknown [id number] 2.16.840.1.741519.3.579.2.593 1938 Unknown [id number] 2.16.840.1.026549.3.579.2.593 1938 Unknown [id number] 2.16.840.1.240637.3.579.2.593 1938 Unknown [id number] 2.16.840.1.290997.3.579.2.593 1938 Unknown [id number] 2.16.840.1.441240.3.579.2.593 1938 Unknown [id number] 2.16.840.1.157979.3.579.2.173 1938 Unknown [id number] [id number] Social History Date Type Detail Facility Start: 07-18-2021 End: 09-26-2021 Tobacco smoking status NHIS Never smoker [employer] Phone: Start: 07-18-2021 End: 09-26-2021 Tobacco use and exposure Never used [employer] Start: 1938 Sex Assigned At Not on file M [employer] Phone: Exposure to SARS-CoV-2 (event) Not sure [facility] Sex Assigned At Sex Assigned At Bir [facility] Other Clinical Notes 04-23-2022 to 09-10-2023 Note Date & Type Note Facility 09-10-2023 Note Patient here c/o LE edema, weight gain, and SOB. Had BMP,BNP on Friday, 09/08. Denies chest pain, lightheadedness, palpitations, falls, and bleeding on Eliquis. Niece states her SOB is very noticeable now and it's with very minimal exertion. Review of Systems HENT: Positive for nosebleeds. Cardiovascular: Positive for leg swelling (thighs). Hematologic/Lymphatic: Bruises/bleeds easily. Skin: Positive for itching and rash. Musculoskeletal: Positive for back pain and joint pain. All other systems reviewed and are negative. 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 Serum creatinine 1.33 mg/dL and GFR 30-40 mm/min while on Lasix 40 mg once daily. UA is benign. Mild proteinuria.On ACEI Volume status well controlled. Blood pressure is reasonably controlled Continue same dose of Lasix and KAILYN inhibitor for now I asked the patient to avoid NSAIDs. I will follow the patient in 4 months Jul, Primary hypertension (ICD-10 - I10) Blood pressure seems reasonably controlled for her age. continue same blood pressure medication. I asked the patient to monitor her blood pressure at home and to continue low Na diet Jul, Chronic congestive heart failure, unspecified heart failure type (ICD-10 - I50.9) Seems compensating with the current dose of Lasix. 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 Patient said her diabetes well controlled. She is only Januvia .patient follows with her PCP for blood glucose control Jul, Vitamin D deficiency (ICD-10 - E55.9) Patient is taking vitamin D supplement. 25 OH VD is WNL. phosphorus and calcium next visit Jul, Hyperuricemia (ICD-10 - E79.0) Uric acid slightly high at 8.3. I will continue to monitor uric acid. No gout attack Jul, Hyperkalemia (ICD-10 - E87.5) resolved with stopping aldactone. continue Low K diet Jul, Hematuria, unspecified type (ICD-10 - R31.9) follows with urology clinic in [facility] [employer] Other 06-07-2023 NoteCardiovascular Medicine [facility] SUBJECTIVE Chief Complaint Patient presents with Congestive Heart Failure Yesy Rodriguez is a 82 y.o. female here for follow-up. HPI Last HPI per Dr. Walters: Visit of 12/28/2021: Yesy is seen as a new patient. She is here to establish care and to proceed with work-up of her valvular heart disease and diastolic heart failure. She is an 81-year-old woman who moved from [place] in May 2021. She is known to have multi valvular disease with combination of aortic valve stenosis, mitral regurgitation and stenosis. She has diastolic heart failure with preserved ejection fraction. She has been having repeated episodes of decompensated heart failure due to valvular disease requiring admissions to the emergency room and/or hospitalization for that purpose. She would be treated with intravenous diuretic therapy and then discharged. She was evaluated at the [facility] cardiology service and she was planned to undergo further assessment by ERIK and cardiac catheterization. She has moved care to our practice due to insurance purposes. Visit of 02/11/2022: After last visit I proceeded with cardiac catheterization on 01/16/2022. This showed moderate three-vessel coronary disease, severe pulmonary hypertension, moderately elevated right-sided filling pressures, moderate to severe elevation of left-sided filling pressures, preserved cardiac output and cardiac index, moderate to severe mitral valve stenosis and moderate aortic valve stenosis. She was started on Eliquis 2.5 mg twice daily due to atrial fibrillation noted on ECG the day of the cardiac catheterization and on prior ECGs. Today she reports that she has been doing well. No significant shortness of breath. No significant lower extremity edema. No palpitations. No chest pain. Visit of 09/06/2022: She is seen in follow-up. Recently she was seen in the office and an echocardiogram was ordered. There is suggested possibly severe aortic valve stenosis low-flow low gradient. She is seen today to review the results of that echocardiogram. Today she reports that she has been doing relatively well. She has no chest pain. Leg swelling is controlled on the current diuretic therapy. She has no significant shortness of breath. No palpitations 03/12/2023 She c/o worsening SOB along with BLE swelling. Her lasix was increased to BID 1 week ago. She has maybe gained 5-6lbs. She is unsure if she has had weight loss. She c/o her thighs are more swollen than her ankles. Her pants are looser this week compared to last week. She continues to have BHARDWAJ. She c/o new chest pain, midsternal, started a few weeks ago, is a sharp pain that lasts seconds and then resolves on its own. Occurs at rest. C/o BLE leg pain, initially started in both ankles and then to her calves. Is now resolved. Olpe like a muscle cramp. Was worse with walking. Denies any accompanied warmth or redness. Also, since last seen she was seen at [facility] ER with c/o fall, she feel backwards and hit the back of her head. She had CT imaging which was unremarkable. 04/16/2023 After last visit we had reduced her lasix back to 40mg daily due worsening renal function. She notes 3lb weight gain in the past week with increase in leg swelling. She had an episode of dried blood in her nose, has not recurred since. She had some pink spotting when wiping on a couple occasions. She has had this issue before. She denies c/o dyspnea, CP, palpitations, orthopnea, PND. 05/07/2023 She has been feeling well since last seen. She c/o swelling to her upper thighs but no leg swelling to her lower legs. She notes that when she sits on the toilet and looks down her legs look bigger than they did in the past. Her pants also feel like they are tighter in the legs. She denies weight gain, CP, dyspnea, orthopnea, PND, palpitations, dizziness/LH. 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 Noninflammatory disorder of vulva and perineum, unspecified Postmenopausal bleeding Rheumatic aortic stenosis Primary hypertension Rheumatic mitral regurgitation Past Medical History: Diagnosis Date Abnormal ECG Arrhythmia Cancer (CMS/HCC) CHF (congestive heart failure) (CMS/HCC) Chronic diastolic heart failure (CMS/HCC) 12/28/2021 Longstanding persistent atrial fibrillation (CMS/HCC) 09/06/2022 Family History Problem Relation Name Age of Onset Heart attack Mother Heart attack Brother Social History Tobacco Use Smoking status: Former Types: Cigarettes Smokeless tobacco: Never (more content not included)...[facility]06-07-2023 NotePatient here for 3 week follow up. Had labs 04/23. Denies chest pain, SOB, and palpitations. Says her LE edema is in her thighs. She does see a little bit of blood on the toilet paper after urinating, but not after BM. Also gets intermittent epistaxis, but she states is very minimal. Review of Systems HENT: Positive for nosebleeds. Cardiovascular: Positive for leg swelling (thighs). Hematologic/Lymphatic: Bruises/bleeds easily. Skin: Positive for itching and rash. Musculoskeletal: Positive for back pain and joint pain. All other systems reviewed and are negative.[facility] 04-16-2023 NoteCardiovascular Medicine [facility] SUBJECTIVE Chief Complaint Patient presents with Follow-up 1 month follow up Yesy Rodriguez is a 82 y.o. female here for follow-up. HPI Last HPI per Dr. Walters: Visit of 12/28/2021: Yesy is seen as a new patient. She is here to establish care and to proceed with work-up of her valvular heart disease and diastolic heart failure. She is an 81-year-old woman who moved from [place] in May 2021. She is known to have multi valvular disease with combination of aortic valve stenosis, mitral regurgitation and stenosis. She has diastolic heart failure with preserved ejection fraction. She has been having repeated episodes of decompensated heart failure due to valvular disease requiring admissions to the emergency room and/or hospitalization for that purpose. She would be treated with intravenous diuretic therapy and then discharged. She was evaluated at the [facility] cardiology service and she was planned to undergo further assessment by ERIK and cardiac catheterization. She has moved care to our practice due to insurance purposes. Visit of 02/11/2022: After last visit I proceeded with cardiac catheterization on 01/16/2022. This showed moderate three-vessel coronary disease, severe pulmonary hypertension, moderately elevated right-sided filling pressures, moderate to severe elevation of left-sided filling pressures, preserved cardiac output and cardiac index, moderate to severe mitral valve stenosis and moderate aortic valve stenosis. She was started on Eliquis 2.5 mg twice daily due to atrial fibrillation noted on ECG the day of the cardiac catheterization and on prior ECGs. Today she reports that she has been doing well. No significant shortness of breath. No significant lower extremity edema. No palpitations. No chest pain. Visit of 09/06/2022: She is seen in follow-up. Recently she was seen in the office and an echocardiogram was ordered. There is suggested possibly severe aortic valve stenosis low-flow low gradient. She is seen today to review the results of that echocardiogram. Today she reports that she has been doing relatively well. She has no chest pain. Leg swelling is controlled on the current diuretic therapy. She has no significant shortness of breath. No palpitations 03/12/2023 She c/o worsening SOB along with BLE swelling. Her lasix was increased to BID 1 week ago. She has maybe gained 5-6lbs. She is unsure if she has had weight loss. She c/o her thighs are more swollen than her ankles. Her pants are looser this week compared to last week. She continues to have BHARDWAJ. She c/o new chest pain, midsternal, started a few weeks ago, is a sharp pain that lasts seconds and then resolves on its own. Occurs at rest. C/o BLE leg pain, initially started in both ankles and then to her calves. Is now resolved. Olpe like a muscle cramp. Was worse with walking. Denies any accompanied warmth or redness. Also, since last seen she was seen at [facility] ER with c/o fall, she feel backwards and hit the back of her head. She had CT imaging which was unremarkable. 04/16/2023 After last visit we had reduced her lasix back to 40mg daily due worsening renal function. She notes 3lb weight gain in the past week with increase in leg swelling. She had an episode of dried blood in her nose, has not recurred since. She had some pink spotting when wiping on a couple occasions. She has had this issue before. She denies c/o dyspnea, CP, palpitations, orthopnea, PND. 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 Noninflammatory disorder of vulva and perineum, unspecified Postmenopausal bleeding Rheumatic aortic stenosis Primary hypertension Rheumatic mitral regurgitation Past Medical History: Diagnosis Date Chronic diastolic heart failure (CMS/HCC) 12/28/2021 Longstanding persistent atrial fibrillation (CMS/HCC) 09/06/2022 Family History Problem Relation Name Age of Onset Heart attack Mother Heart attack Brother Social History Tobacco Use Smoking status: Former Types: Cigarettes Smokeless tobacco: Never Substance Use Topics Alcohol use: Yes Comment: occasional social Drug use: Never No Known Allergies Review of Systems Constitutional: Positive for weight gain. Negative for chills, decreased appetite, fever and malaise/fatigue. Cardiovascular: Positive for chest pain, dyspnea on exertion and leg swelling. Negative for irregular heartbeat, near-syncope, orthopnea, palpitations, paroxysmal nocturnal dyspnea and syncope. OBJECTIVE Visit Vitals (more content not included)...[facility]05-17-2023 Note Patient is here today for a one month follow up Review of Systems Constitutional: Positive for weight gain. Cardiovascular: Positive for leg swelling. Skin: Positive for rash. Musculoskeletal: Positive for back pain and joint pain. All other systems reviewed and are negative.[facility] 03-12-2023 NoteYesy is here today to follow up on shortness of breath and swelling in her thighs. Lasix was changed to 40mg BID. Swelling has gone down a little bit. SOB is a bit better. Any exertion exacerbates it. Does c/o pain in her chest occasionally - last time was this morning. Also following up on Echo and ED visit 01/13/23. Review of Systems Cardiovascular: Positive for chest pain, dyspnea on exertion and leg swelling. Respiratory: Positive for cough. Recent xray showed fluid, but doctor stated it was not respiratory-related. Musculoskeletal: Positive for joint pain. Pain from knees down to ankles, primarily left side, states pain in L>R calf. Pain is better now.[facility]04-12-2023 Note Cardiovascular Medicine [facility] SUBJECTIVE Chief Complaint Patient presents with Follow-up Edema Shortness of Breath Yesy Rodriguez is a 82 y.o. female here for follow-up. HPI Last HPI per Dr. Walters: Visit of 12/28/2021: Yesy is seen as a new patient. She is here to establish care and to proceed with work-up of her valvular heart disease and diastolic heart failure. She is an 81-year-old woman who moved from [place] in May 2021. She is known to have multi valvular disease with combination of aortic valve stenosis, mitral regurgitation and stenosis. She has diastolic heart failure with preserved ejection fraction. She has been having repeated episodes of decompensated heart failure due to valvular disease requiring admissions to the emergency room and/or hospitalization for that purpose. She would be treated with intravenous diuretic therapy and then discharged. She was evaluated at the [facility] cardiology service and she was planned to undergo further assessment by [facility] and cardiac catheterization. She has moved care to our practice due to insurance purposes. Visit of 02/11/2022: After last visit I proceeded with cardiac catheterization on 01/16/2022. This showed moderate three-vessel coronary disease, severe pulmonary hypertension, moderately elevated right-sided filling pressures, moderate to severe elevation of left-sided filling pressures, preserved cardiac output and cardiac index, moderate to severe mitral valve stenosis and moderate aortic valve stenosis. She was started on Eliquis 2.5 mg twice daily due to atrial fibrillation noted on ECG the day of the cardiac catheterization and on prior ECGs. Today she reports that she has been doing well. No significant shortness of breath. No significant lower extremity edema. No palpitations. No chest pain. Visit of 09/06/2022: She is seen in follow-up. Recently she was seen in the office and an echocardiogram was ordered. There is suggested possibly severe aortic valve stenosis low-flow low gradient. She is seen today to review the results of that echocardiogram. Today she reports that she has been doing relatively well. She has no chest pain. Leg swelling is controlled on the current diuretic therapy. She has no significant shortness of breath. No palpitations 03/12/2023 She c/o worsening SOB along with BLE swelling. Her lasix was increased to BID 1 week ago. She has maybe gained 5-6lbs. She is unsure if she has had weight loss. She c/o her thighs are more swollen than her ankles. Her pants are looser this week compared to last week. She continues to have BHARDWAJ. She c/o new chest pain, midsternal, started a few weeks ago, is a sharp pain that lasts seconds and then resolves on its own. Occurs at rest. C/o BLE leg pain, initially started in both ankles and then to her calves. Is now resolved. Olpe like a muscle cramp. Was worse with walking. Denies any accompanied warmth or redness. Also, since last seen she was seen at [facility] ER with c/o fall, she feel backwards and hit the back of her head. She had CT imaging which was unremarkable. 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 Noninflammatory disorder of vulva and perineum, unspecified Postmenopausal bleeding Rheumatic aortic stenosis Primary hypertension Rheumatic mitral regurgitation Past Medical History: Diagnosis Date Chronic diastolic heart failure (CMS/HCC) 12/28/2021 Longstanding persistent atrial fibrillation (CMS/HCC) 09/06/2022 Family History Problem Relation Name Age of Onset Heart attack Mother Heart attack Brother Social History Tobacco Use Smoking status: Former Types: Cigarettes Smokeless tobacco: Never Substance Use Topics Alcohol use: Yes Comment: occasional social Drug use: Never No Known Allergies Review of Systems Constitutional: Positive for weight gain. Negative for chills, decreased appetite, fever and malaise/fatigue. Cardiovascular: Positive for chest pain, dyspnea on exertion and leg swelling. Negative for irregular heartbeat, near-syncope, orthopnea, palpitations, paroxysmal nocturnal dyspnea and syncope. OBJECTIVE Visit Vitals BP 134/78 (BP Location: Left arm, Patient Position: Sitting) Pulse 72 Ht 1.499 m (4' 11 ) Wt 57.2 kg (126 lb) SpO2 98% BMI 25.45 kg/m??? Smoking Status Former BSA 1.54 m??? Medications: Current Outpatient Medications: amLODIPine (Norvasc) 5 mg tablet, Take 1 tablet by mouth in the morning., Disp: , Rfl: anastrozole (Arimidex) 1 mg chemo tablet, Take 1 tablet every day by oral (more content not included)...[facility]02-22-2023 Evaluation note* Encounter Date Diagnosis Assessment Notes Treatment Notes Treatment Clinical Notes Jan, Hyperkalemia (ICD-10 - E87.5) [employer] Other 02-21-2023 Evaluation note* Encounter Date Diagnosis Assessment Notes Treatment Notes Treatment Clinical Notes Jan, Chronic kidney disease, stage IV (severe) (ICD-10 - N18.4) 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 Serum creatinine 148 mg/dL and GFR 30-35 mm/min while on Lasix 40 mg once daily. UA is benign. Mild proteinuria Volume status well controlled. Blood pressure is reasonably controlled Continue same dose of Lasix and KAILYN inhibitor for now I asked the patient to avoid NSAIDs. I will follow the patient in 4 months Jan, Primary hypertension (ICD-10 - I10) Blood pressure seems reasonably controlled for her age. I stop aldactone due to hyperkalemia. continue same other blood pressure medication. I asked the patient to monitor her blood pressure at home Jan, Chronic congestive heart failure, unspecified heart failure type (ICD-10 - I50.9) Seems compensating with the current dose of Lasix. 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 Patient said her diabetes well controlled. She is only Januvia patient follows with her PCP for blood glucose control Jan, Vitamin D deficiency (ICD-10 - E55.9) Patient is taking vitamin D supplement. Will check PTH,25-hydroxy vitamin D, phosphorus and calcium next visit Jan, Hyperuricemia (ICD-10 - E79.0) Uric acid slightly high at 7.5. I will continue to monitor uric acid. Jan, Hyperkalemia (ICD-10 - E87.5) K 5.7. Will give the patient lokelma for 3 days. Will stop aldactone. Patient as given handout of high K food at [employer]. 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 Serum creatinine 1.55 mg/dL and GFR 32 mm/min while on Lasix 40 mg once daily. UA is benign. Mild proteinuria Volume status well controlled. Blood pressure is reasonably controlled Continue same dose of Lasix and KAILYN inhibitor for now I asked the patient to avoid NSAIDs. I will follow the patient in 4 months Aug, Primary hypertension (ICD-10 - I10) Blood pressure seems reasonably controlled for her age. I will continue same blood pressure medication. I asked the patient to monitor her blood pressure at home Aug, Chronic congestive heart failure, unspecified heart failure type (ICD-10 - I50.9) Seems compensating with the current dose of Lasix. 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 Patient said her diabetes well controlled. She is only Januvia patient follows with her PCP for blood glucose control Aug, Vitamin D deficiency (ICD-10 - E55.9) Patient is taking vitamin D supplement. PTH, 25-hydroxy vitamin D and calcium are within normal limit. Aug, Hyperuricemia (ICD-10 - E79.0) Uric acid slightly high at 7.5. I will continue to monitor uric acid. [employer] Other 05-24-2022 Evaluation note* Encounter Date Diagnosis Assessment Notes Treatment Notes Treatment Clinical Notes March, Chronic kidney disease, stage IV (severe) (ICD-10 - N18.4) Serum creatinine was 1.0 mg/dL in December 2021. Worsening kidney function slightly related to IV contrast exposure and overdiuresis. Serum creatinine as of last month 1.89 mg deciliter and GFR 24 mm/min. I will check UA along with protein to creatinine ratio. Okay to continue same dose of Lasix and KAILYN inhibitor for now I asked the patient to avoid NSAIDs. I will follow the patient in 3 months March, Primary hypertension (ICD-10 - I10) Blood pressure seems reasonably controlled for her age. I will continue same blood pressure medication. I asked the patient to monitor her blood pressure at home March, Chronic congestive heart failure, unspecified heart failure type (ICD-10 - I50.9) Seems compensating with the current dose of Lasix. 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 Patient said her diabetes well controlled. 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 documented in this encounter [employer] Phone: [email or web address] note* Diagnosis History of ovarian cancer Personal history of malignant neoplasm of ovary documented in this encounter [employer] Phone: [email or web address] noteNo InformationNort SCRM Other History general Narrative - Reported* Type Description Date Medical History PULMONARY HYPERTENSION Medical History CHRONIC ATRIAL FIBRILLATION Medical History MITRAL VALVE REGURGITATION Medical History MITRAL VALVE STENOSIS Medical History CHRONIC KIDNEY STAGE 4 Medical History ESSENTIAL HYPERTENSION Medical History HYPERCHOLESTEROLEMIA Medical History AORTIC VALVE CALCIFICATION Medical History TYPE 2 DIABETES MELLITUS Surgical History HYSTERECTOMY/REVISE VAGINA Surgical History CARDIAC CATHETERIZATION Surgical History REMOVAL OF OVARIES Hospitalization History SEE ABOVE [employer] Other Summary Purpose Family History No Family History Records FoundNo Family History Records FoundNo Family History Records FoundNo Family History Records FoundNo Family History Records FoundNo Family History Records FoundNo Family History Records FoundNo Family History Records FoundNo Family History Records Found Advance Directives No Advanced Directives Records FoundNo Advanced Directives Records FoundNo Advanced Directives Records FoundNo Advanced Directives Records FoundNo Advanced Directives Records FoundNo Advanced Directives Records FoundNo Advanced Directives Records FoundNo Advanced Directives Records FoundNo Advanced Directives Records Found Additional Source Comments INFORMATION SOURCE (unrecogn ized section and content) DATE CREATED AUTHOR 09/27/2021 [facility] DATE CREATED AUTHOR AUTHOR'S ORGANIZ ATION 01/22/2022 [facility] DATE CREATED AUTHOR AUTHOR'S ORGANIZ ATION 02/18/2022 [facility] DATE CREATED AUTHOR AUTHOR'S ORGANIZ ATION 06/11/2022 [facility] DATE CREATED AUTHOR AUTHOR'S ORGANIZ ATION 10/14/2022 [facility] DATE CREATED AUTHOR AUTHOR'S ORGANIZ ATION 03/20/2023 [facility] DATE CREATED AUTHOR AUTHOR'S ORGANIZ ATION 09/04/2023 [facility] DATE CREATED AUTHOR AUTHOR'S ORGANIZ ATION 09/12/2023 [facility] DATE CREATED AUTHOR AUTHOR'S ORGANIZ ATION 10/12/2023 [facility] dical Specialists [employer] Care Teams (unrecognized sec tion and content) Pail Tester Relationship Specialty Start Date End Date Zachary Ware [address] [place] [id number] PCP - General Family Medicine 09/26/21 Pail Tester Relationship Specialty [place] [id number] [place] [address] PCP - General Gynecological Oncology 07/17/22 REASON FOR VISIT (unrecogniz ed section and content) RENAL CKD 4RENAL 4 month Fol low upRENAL 4 month Follow upSEND NEW RX TO PHARMACYRENAL 6 month Follow upSTART PT ON JARDIANE / FARXIGA FOR RECORDS PERTAINING TO PATIENTS WHO ARE OR HAVE BEEN ENROLLED IN A CHEMICAL DEPENDENCY/SUBSTANCEABUSE PROGRAM, SOME INFORMATION MAY BE OMITTED. This clinical summary was aggregated from multiple sources. Caution should be exercised in using it in the provision of clinical care. This summary normalizes information from multiple sources, and as a consequence, information in this document may materially change the coding, format and clinical context of patient data. In addition, data may be omitted in some cases. CLINICAL DECISIONS SHOULD BE BASED ON THE PRIMARY CLINICAL RECORDS. [employer] provides no warranty or guarantee of the accuracy or completeness of information in this document.
[2023-11-19 12:43] LABS: Basophils Absolute Auto 0.1 10^3/uL (0.0-0.1); Basophils Percent Auto 0.9 % (0.2-2.0); Eosinophils Absolute Auto 0.3 10^3/uL (0.0-0.7); Eosinophils Percent Auto 2.2 % (0.9-7.0); Hematocrit 43.2 % (36.0-48.0); Hemoglobin 14.1 g/dL (12.0-16.0); Immature Granulocytes Abs Auto 0.04 10^3/uL (0.00-0.03); Immature Granulocytes Pct Auto 0.3 % (0.0-0.5); Lymphocytes Absolute Auto 1.3 10^3/uL (1.2-3.8); Mean Corpuscular HGB Conc 32.6 g/dL (29.9-35.2); Mean Corpuscular Hemoglobin 32.3 pg (26.7-34.0); Mean Corpuscular Volume 98.9 fL (81.0-99.0); Monocytes Absolute Auto 1.3 10^3/uL (0.3-0.8); Monocytes Percent Auto 11.3 % (1.7-12.0); Neutrophils Absolute Auto 8.6 10^3/uL (1.4-6.5); Neutrophils Percent Auto 74.3 % (43.0-75.0); Platelet Count 281 10^3/uL (150-450); Red Blood Count 4.37 10^6/uL (4.20-5.40); Red Cell Distribution Width 12.9 % (11.0-15.0); White Blood Count 11.5 10^3/uL (4.0-11.0)
[2023-11-19 13:02] LABS: Alanine Aminotransferase 36 U/L (14-59); Albumin Level 4.2 g/dL (3.4-5.0); Alkaline Phosphatase 94 U/L (46-116); Anion Gap 12.5; Aspartate Amino Transferase 28 U/L (15-37); Bilirubin Total 0.5 mg/dL (0.2-1.0); Calcium 9.8 mg/dL (8.5-10.1); Carbon Dioxide 30.5 mmol/L (21.0-32.0); Chloride 100 mmol/L (98-107); Estimated GFR (African America 35 (>=60); Estimated GFR (Non-African Ame 29 (>=60); Globulin 4.1 g/dL; Glucose 100 mg/dL (74-106); Sodium 139 mmol/L (136-145); Total Protein 8.3 g/dL (6.4-8.2)
== END 2023-11-19 12:10 | disposition home or self-care (01) ==
LOC: LAB 12:09
PROVIDERS: Visit Provider Internal Medicine Interventional Cardiology
DX: I50.32 Chronic diastolic (congestive) heart failure (principal)
CPT/HCPCS: 36415; 80053; 85025

== ENCOUNTER 2024-01-28 12:42 | Outpatient (OUT) | payer MEDICARE, SELFPAY ==
[2024-01-28 13:10] LABS: Hematocrit 44.1 % (36.0-48.0); Hemoglobin 14.1 g/dL (12.0-16.0); Mean Corpuscular Volume 96.9 fL (81.0-99.0); Platelet Count 265 10^3/uL (150-450); Red Blood Count 4.55 10^6/uL (4.20-5.40); Red Cell Distribution Width 12.8 % (11.0-15.0); White Blood Count 10.7 10^3/uL (4.0-11.0)
[2024-01-28 13:40] LABS: Alanine Aminotransferase 30 U/L (14-59); Albumin Level 4.3 g/dL (3.4-5.0); Alkaline Phosphatase 104 U/L (46-116); Anion Gap 12.3; Aspartate Amino Transferase 28 U/L (15-37); BUN Creatinine Ratio 27.3; Bilirubin Total 0.7 mg/dL (0.2-1.0); Calcium 9.6 mg/dL (8.5-10.1); Carbon Dioxide 31.4 mmol/L (21.0-32.0); Chloride 101 mmol/L (98-107); Estimated GFR (African America 33 (>=60); Estimated GFR (Non-African Ame 27 (>=60); Globulin 4.3 g/dL; Glucose 93 mg/dL (74-106); Magnesium 2.6 mg/dL (1.8-2.4); Phosphorus 3.9 mg/dL (2.6-4.7); Potassium 3.7 mmol/L (3.5-5.1); Sodium 141 mmol/L (136-145); Total Protein 8.6 g/dL (6.4-8.2); Uric Acid 8.8 mg/dL (2.6-6.0)
[2024-01-28 14:44] LABS: Bilirubin Urine NEGATIVE (NEGATIVE); Blood Urine NEGATIVE (NEGATIVE); Clarity Urine CLEAR (CLEAR); Color Urine LT. YELLOW (YELLOW); Glucose Urine UA 100 mg/dL (NEGATIVE); Ketones Urine NEGATIVE (NEGATIVE); Leukocyte Esterase Urine TRACE (NEGATIVE); Nitrite Urine NEGATIVE (NEGATIVE); Protein Urine NEGATIVE (NEG/TRACE); Urobilinogen Urine 0.2 EU/dL (0.2-1.0)
[2024-01-28 14:56] LABS: Creatinine Urine Random 42.42 mg/dL (20.00-300.00); Protein Creatinine Ratio Urine 0.15; Total Protein Urine Random 6.4 mg/dL (<=11.9)
[2024-01-29 11:11] LABS: PTH, Intact 70 pg/mL (15-65)
== END 2024-01-28 12:43 | disposition home or self-care (01) ==
LOC: LAB 12:43
PROVIDERS: Visit Provider Internal Medicine Nephrology
DX: I12.9 Hypertensive chronic kidney disease with stage 1 through stage 4 chronic kidney disease, or unspecified chronic kidney disease (principal); N18.4 Chronic kidney disease, stage 4 (severe); I50.9 Heart failure, unspecified; E11.9 Type 2 diabetes mellitus without complications; E55.9 Vitamin D deficiency, unspecified; E79.0 Hyperuricemia without signs of inflammatory arthritis and tophaceous disease; E87.5 Hyperkalemia
CPT/HCPCS: 36415; 80053; 81003; 82306; 82570; 83735; 83970; 84100; 84156; 84550; 85027

== ENCOUNTER 2024-02-23 12:20 | Outpatient (OUT) | payer MEDICARE, SELFPAY ==
--- OUTSIDE RECORDS SUMMARY | 2024-02-23 12:29 | XMS_ITS | CCD ---
Author Organization [facility] Care Team Providers Care Hand Gluer And Slicer Name Role Phone Zachary Ware Primary Care Provider ANABEL CUEVAS Referring Unavailable ANABEL CUEVAS Referring Unavailable ZACHARY WARE Primary Care Unavailable Albin Bonner Unavailable Zachary Ware Primary Care Provider [phone] Kelvin Maya MD Marshall Primary Care Provider [place], DR ZACHARY Bermudez Primary Care Unavailable FURLONG, DR ZACHARY Bermudez Consulting Unavailable FURLONG, DR ZACHARY Bermudez Attending Unavailable FURLONG, DR ZACHARY Bermudez Admitting Unavailable MONTGOMERY, DR CHARSI Maya Consulting Unavailable MISC, DR DENNISON Admitting Unavailable MISC, DR DENNISON Primary Care Unavailable MISC, DR DENNISON Consulting Unavailable MISC, DR DENNISON Attending Unavailable MISC, DR DENNISON Admitting Unavailable FURLONG, DR ZACHARY Bermudez Primary Care Unavailable FURLONG, DR ZACHARY Bermudez Consulting Unavailable MISC, DR DENNISON Attending Unavailable MOUKARBEL, DR SYKES Attending Unavailable MOUKARBEL, DR SYKES Admitting Unavailable FURLONG, DR ZACHARY Bermudez Primary Care Unavailable VENTURADHEERAJ Admitting Unavailable DHEERAJ WHITEHEAD Consulting Unavailable DHEERAJ WHITEHEAD Attending Unavailable FURLONG, DR ZACHARY Bermudez Primary Care Unavailable MOUKARBEL, DR SYKES Consulting Unavailable MOUKARBEL, DR SYKES Attending Unavailable MOUKARBEL, DR SYKES Admitting Unavailable VENTURADHEERAJ KUMARI Admitting Unavailable ELA GASPAR Consulting Unavailable MISC, DR DENNISON Primary Care Unavailable DHEERAJ WHITEHEAD Attending Unavailable VENTURADHEERAJ MICHAUD Consulting Unavailable FURLONG, DR ZACHARY Bermudez Primary Care Unavailable PAY ., DR GARCIA Attending Unavailable PAY ., DR GARCIA Admitting Unavailable PAY ., DR GARCIA Consulting Unavailable MISC, DR DENNISON Primary Care Unavailable HAY ., DR JOHANSEN Attending Unavailable HAY ., DR JOHANSEN Admitting Unavailable HAY ., DR JOHANSEN Consulting Unavailable MAYORAUL Consulting Unavailable VENTURADHEERAJ KUMARI Admitting Unavailable MISC, DR DENNISON Primary Care Unavailable MISC, DR DENNISON Consulting Unavailable DHEERAJ WHITEHEAD Attending Unavailable DHEERAJ WHITEHEAD Consulting Unavailable MOUKARBEL, DR SYKES Consulting Unavailable MOUKARBEL, DR SYKES Attending Unavailable MOUKARBEL, DR SYKES Admitting Unavailable MISC, DR DENNISON Primary Care Unavailable MISC, DR DENNISON Attending Unavailable MISC, DR DENNISON Admitting Unavailable MISC, DR DENNISON Primary Care Unavailable MISC, DR DENNISON Consulting Unavailable MISC, DR DENNISON Primary Care Unavailable MOUKARBEL, DR SYKES Consulting Unavailable MOUKARBEL, DR SYKES Attending Unavailable MOUKARBEL, DR SYKES Admitting Unavailable MED, KATHARINA Attending Unavailable MED, KATHARINA Admitting Unavailable MED, KATHARINA Consulting Unavailable FURLONG, DR ZACHARY Bermudez Primary Care Unavailable ELMIRA BROWN Primary Care Unavailable IMAN OSEGUERA Referring Unavailable BÁRBARAFIDE Referring Unavailable JOSÉ BHAGAT Primary Care Unavailtereso e ONEL WALTERS Attending Unavailable DHEERAJ WHITEHEAD Attending Unavailable DHEERAJ WHITEHEAD Attending Unavailable DHEERAJ WHITEHEAD Attending Unavailable DHEERAJ WHITEHEAD Attending Unavailable Elmira Brown DO Unavailable Elmira Brown DO Primary Care Provider [phone] Lexy Mei MD Primary Care Provider Soraida Bethea NP Unavailable SORAIDA BETHEA Attending Unavailab le Medications Current Medications Medication Drug Class(es) Dates Sig (Normalized) Sig (Original) amLODIPine 5 mg oral tablet (13 sources) Dihydropyridine Calcium Channel Aleksandra Start: 12-03-2023 amLODIPine (Norvasc) 5 MG tablet Indications: Primary hypertension (CMS/HCC) TAKE 1 TABLET EVERY DAY 90 tablet 3 12/03/2023 Active anastrozole 1 mg oral tablet (17 sources) Aromatase Inhibitor Start: 07-10-2021 take 1 tablet by mouth once daily anastrozole (ARIMIDEX) 1 MG tablet 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 0 Active atorvastatin 10 mg oral tablet (13 sources) HMG-CoA Reductase Inhibitor Start: 2021 atorvastatin (Lipitor) 10 MG tablet Indications: Mixed hyperlipidemia (CMS/HCC) TAKE 1 TABLET EVERY DAY 90 tablet 3 2023 Active benazepril hydrochloride 10 mg oral tablet (13 sources) Angiotensin Converting Enzyme Inhibitor Start: 07-12-2021 benazepril (Lotensin) 10 MG tablet Indications: Primary hypertension (CMS/HCC) TAKE 1 TABLET EVERY DAY 90 tablet 10 10/13/2023 Active Blood Glucose Monitoring Suppl (True Metrix Meter) w/Device kit (2 sources) Start: 08-20-2022 Blood Glucose Monitoring Suppl (True Metrix Meter) w/Device kit cholecalciferol 0.025 mg oral tablet (3 sources) Vitamin D take 1 tablet by mouth in the morning cholecalciferol (Vitamin D3) 25 MCG (1000 UT) tablet Take 25 mcg by mouth in the morning. 0 Active take 1 tablet by sparkle th every twenty-four hours Vitamin D 25 MCG (1000 UT) 1 tablet Orally Once a day Active diazePAM 5 mg oral tablet (2 sources) Benzodiazepine Start: 04-29-2023 diazePAM (Valium) 5 MG tablet Indications: Situational anxiety Take 1 tablet (5 mg) by mouth 2 (two) times a day as needed for anxiety (take 1 dose prior to MRI, take 2nd tablet 20 minutes later if still anxious) for up to 2 doses. 2 tablet 0 04/29/2023 Active docusate sodium 100 mg oral capsule (9 sources) take 1 capsule by mouth in the morning docusate sodium (Colace) 100 MG capsule Take 100 mg by mouth in the morning. 0 Active empagliflozin 10 mg oral tablet (1 source) Sodium-Glucose Cotransporter 2 Inhibitor Start: 01-06-2024 End: 01-05-2025 take 10 mg by mouth in the morning empagliflozin (Jardiance) 10 MG Take 10 mg by mouth in the morning. 0 01/06/2024 01/05/2025 Active furosemide 20 mg oral tablet (12 sources) Loop Diuretic Start: 10-16-2021 take 1 tablet by mouth once daily furosemide (LASIX) 20 MG tablet TAKE 1 TABLET BY MOUTH EVERY DAY FOR 5 DAYS 0 10/16/2021 Active take 1 tablet by mouth in the mo rning furosemide (Lasix) 40 MG tablet Take 40 mg by mouth in the morning and 40 mg before bedtime. 0 Active take 1 tablet by sparkle th every twenty-four hours Furosemide 40 MG 1 tablet Orally Once a day Active isopropyl alcohol 0.7 ml/ml medicated pad (2 sources) Start: 04-08-2023 Alcohol Swabs (DropSafe Alcohol Prep) 70 % pads latanoprost 0.05 mg/ml ophthalmic solution (12 sources) Prostaglandin Analog Start: 12-17-2021 take 1 drop(s) into the eye(s) once daily latanoprost (XALATAN) 0.005 % ophthalmic solution INSTILL 1 DROP INTO EYES EVERY NIGHT 0 12/17/2021 Active Start: 09-21-2021 latanoprost (X alatan) 0.005 % ophthalmic solution latanoprost 0.005 % eye drops 0 09/21/2021 Active take 1 drop(s) into the eye(s) [...] succinate 200 mg extended release oral tablet (13 sources) beta-Adrenergic Aleksandra Start: 05-01-2021 metopr olol succinate XL (Toprol-XL) 200 MG 24 hr tablet Indications: Primary hypertension (CMS/HCC) TAKE 1 TABLET EVERY DAY 90 tablet 3 07/31/2023 Active pioglitazone 30 mg oral tablet (4 sources) Peroxisome Proliferator Receptor alpha Agonist, Peroxisome Proliferator Receptor gamma Agonist, Thiazolidinedione Start: 07-06-2021 pioglitazone (ACTOS) 30 MG tablet daily 0 07/06/2021 Active SITagliptin 50 mg oral tablet (14 sources) Dipeptidyl Peptidase 4 Inhibitor Start: 01-05-2024 Januvia 50 MG tablet Indications: Type 2 diabetes mellitus with chronic kidney disease, without long-term current use of insulin, unspecified CKD stage (CMS/HCC) TAKE 1 TABLET EVERY DAY 90 tablet 3 01/05/2024 Active Start: 11-06-2023 End: 01-05-2024 take 1 tablet by mouth once daily in the morning SITagliptin (Januvia) 50 MG tablet Indications: Type 2 diabetes mellitus with chronic kidney disease, without long-term current use of insulin, unspecified CKD stage (CMS/HCC) TAKE 1 TABLET BY MOUTH EVERY DAY IN THE MORNING 100 tablet 3 11/06/2023 01/05/2024 Discontinued Start: 07-07-2021 JANUVIA 100 MG tablet daily 0 07/07/2021 Active sodium zirconium cyclosilicate 85321 mg powder for oral suspension (5 sources) Start: 01-21-2023 take 1 dose by mouth once daily Lokelma 10 GM 1 packet dissolved in water Orally Once a day for 3 days Jan, Active take 1 dose by mouth once daily Lokelma 10 GM 1 packet dissolved in water Orally Once a day for 4 days Active spironolactone 25 mg oral tablet (5 [...] Problem Classification Problem Date Documented Date Episodic/Chronic Allergic reactions (2 sources) Atopic dermatitis; Translations: [Intrinsic (allergic) eczema] Onset: 04-09-2023 04-09-2023 Chronic Cancer of ovary (4 sources) Malignant tumor of ovary; Translations: [Malignant neoplasm of unspecified ovary] Onset: 12-28-2021 04-09-2023 Chronic Cardiac dysrhythmias (4 sources) Permanent atrial fibrillation; Translations: [Permanent atrial fibrillation] Onset: 09-06-2022 04-09-2023 Chronic Chronic kidney disease (20 sources) Chronic kidney disease stage 4; Translations: [Chronic kidney disease, stage 4 (severe)] Onset: 12-28-2021 Resolved: 04-23-2022 Chronic Chronic kidney disease (2 sources) Chronic kidney disease; Translations: [Chronic kidney disease, stage 3 unspecified] Onset: 08-03-2022 Chronic obstructive pulmonary disease and bronchiectasis (1 source) Chronic obstructive lung disease; Translations: [Chronic obstructive pulmonary disease, unspecified] Onset: 04-04-2021 01-12-2024 Chronic Congestive heart failure; nonhypertensive (20 sources) Heart failure; Translations: [Heart failure, unspecified] Onset: 10-16-2021 Resolved: 04-23-2022 10-16-2021 Chronic Coronary atherosclerosis and other heart disease (2 sources) Atherosclerotic heart disease of [place] coronary artery without angina pectoris; Translations: [Atherosclerotic heart disease of [place] coronary artery without angina pectoris] Onset: 04-16-2023 Chronic Diabetes mellitus with complications (2 sources) Type 2 diabetes mellitus with diabetic chronic kidney disease; Translations: [Type 2 diabetes mellitus with peripheral angiopathy] Onset: 04-28-2020 01-12-2024 Chronic Diabetes mellitus without complication (16 sources) Type 2 diabetes mellitus; Translations: [Type 2 diabetes mellitus without complications] Onset: 12-28-2021 Resolved: 04-23-2022 Chronic Disorders of lipid metabolism (6 sources) Mixed hyperlipidemia; Translations: [Mixed hyperlipidemia] Onset: 12-28-2021 Chronic E Codes: Fall (1 source) Fall on same level from slipping, tripping and stumbling with subsequent striking against unspecified object, initial encounter; Translations: [FALL SAME LVL SLIP STRK UNS OBJ INT] Onset: 01-15-2023 Episodic Essential hypertension (20 sources) Essential hypertension; Translations: [Essential (primary) hypertension] Onset: 12-28-2021 Resolved: 04-23-2022 Chronic Fluid and electrolyte disorders (3 sources) Hyperkalemia Episodic Heart valve disorders (19 sources) Nonrheumatic aortic (valve) stenosis; Translations: [Combined rheumatic disorders of mitral, aortic and tricuspid valves] Onset: 11-09-2021 Chronic Hypertension with complications and secondary hypertension (8 sources) Hypertensive heart disease with heart failure; Translations: [Hypertensive heart and chronic kidney disease with heart failure and stage 1 through stage 4 chronic kidney disease, or unspecified chronic kidney disease] Onset: 01-13-2023 Chronic Immunizations and screening for infectious disease (1 source) Encounter for immunization; Translations: [ENCOUNTER FOR IMMUNIZATION] Onset: 01-15-2023 Episodic Menopausal disorders (6 sources) Postmenopausal bleeding; Translations: [Postmenopausal bleeding] Onset: 09-26-2021 09-26-2021 Chronic Nutritional deficiencies (10 sources) Vitamin D deficiency; Translations: [Vitamin D deficiency, unspecified] Onset: 01-15-2023 Chronic Other aftercare (1 source) Other shelter (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; Translations: [OTH RESIDENTIAL CURRENT DRUG THERAPY] Onset: 01-15-2023 Episodic Other aftercare (1 source) 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; Translations: [RESIDENTIAL CURRNT USE ANTICOAGULANTS] Onset: 01-15-2023 Episodic Other ear and sense organ disorders (2 sources) Bilateral hearing loss; Translations: [Unspecified hearing loss, bilateral] Onset: 04-09-2023 04-09-2023 Chronic Other ear and sense organ disorders (2 sources) Mixed conductive AND sensorineural hearing loss; Translations: [Mixed conductive and sensorineural hearing loss, unilateral, right ear with restricted hearing on the contralateral side] Onset: 04-09-2023 04-09-2023 Chronic Other female genital disorders (1 source) Dystrophy of vulva; 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] Onset: 01-12-2024 01-12-2024 Episodic Other injuries and conditions due to external causes (1 source) Other specified injuries of head, initial encounter; Translations: [OTH SPEC INJURIES HEAD INITIAL ENC] Onset: 01-15-2023 Episodic Other nutritional; endocrine; and metabolic disorders (3 sources) Hyperuricemia without signs of inflammatory arthritis and tophaceous disease Episodic Peripheral and visceral atherosclerosis (1 source) Atherosclerosis of aorta; Translations: [Atherosclerosis of aorta] Onset: 10-27-2020 01-12-2024 Chronic Pulmonary heart disease (2 sources) Pulmonary hypertension; Translations: [Pulmonary hypertension, unspecified] Onset: 04-09-2023 04-09-2023 Chronic Spondylosis; intervertebral disc disorders; other back problems (1 source) Narrowing of intervertebral disc space; Translations: [Other intervertebral disc degeneration, lumbar region] Onset: 04-20-2015 01-12-2024 Chronic Superficial injury; contusion (1 source) Abrasion of scalp, initial encounter; Translations: [ABRASION OF SCALP INITIAL ENCOUNTER] Onset: 01-15-2023 Episodic Unclassified (1 source) Other persistent atrial fibrillation; Translations: [OTHR PERSISTENT ATRIAL FIBRILLATION] Onset: 08-26-2022 Unclassified (2 sources) Longstanding persistent atrial fibrillation; Translations: [Longstanding persistent atrial fibrillation] Onset: 09-06-2022 Past or Other Problems Problem Classification Problem Date Documented Date Episodic/Chronic Cancer of ovary (2 sources) History of malignant neoplasm of ovary; Translations: [Personal history of malignant neoplasm of ovary] Onset: 01-24-2023 Episodic Genitourinary symptoms and ill-defined conditions (8 sources) Randall hematuria; Translations: [Gross hematuria] Onset: 09-26-2021 Episodic Neoplasms of unspecified nature or uncertain behavior (11 sources) Borderline epithelial tumor of ovary; Translations: [Neoplasm of uncertain behavior of unspecified ovary] Onset: 07-18-2021 Episodic Nonspecific chest pain (3 sources) Chest pain, unspecified; Translations: [CHEST PAIN UNSPECIFIED] Onset: 03-12-2023 Episodic Other acquired deformities (1 source) Lumbar spondylolisthesis; Translations: [Spondylolisthesis, lumbar region] Onset: 04-20-2015 01-12-2024 Episodic Other and unspecified benign neoplasm (1 source) Serous cystadenoma of left ovary; Translations: [Benign neoplasm of left ovary] Onset: 11-21-2020 01-12-2024 Episodic Other connective tissue disease (3 sources) Pain in right leg; Translations: [PAIN IN RIGHT LEG] Onset: 03-12-2023 Episodic Other connective tissue disease (3 sources) Pain in left leg; Translations: [PAIN IN LEFT LEG] Onset: 03-12-2023 Episodic Other connective tissue disease (2 sources) Tear of left rotator cuff; Translations: [Unspecified rotator cuff tear or rupture of left shoulder, not specified as traumatic] Onset: 04-09-2023 04-09-2023 Episodic Other connective tissue disease (2 sources) Supraspinatus tear; Translations: [Unspecified rotator cuff tear or rupture of left shoulder, not specified as traumatic] Onset: 04-09-2023 04-09-2023 Episodic Other connective tissue disease (1 source) Pain in upper limb; Translations: [Pain in right arm] Onset: 02-22-2016 01-12-2024 Episodic Other connective tissue disease (1 source) Tendonitis of left shoulder; Translations: [Other enthesopathies, not elsewhere classified] Onset: 02-22-2016 01-12-2024 Episodic Other ear and sense organ disorders (2 sources) Bilateral tinnitus; Translations: [Tinnitus, bilateral] Onset: 04-09-2023 04-09-2023 Episodic Other female genital disorders (2 sources) Vulval and/or perineal noninflammatory disorders; Translations: [Noninflammatory disorder of vulva and perineum, unspecified] Onset: 03-12-2023 05-11-2023 Episodic Other screening for suspected conditions (not [...] HX MALIGNANT NEOPLASM OVARY] Onset: 06-12-2022 Episodic Residual codes; unclassified (2 sources) Acquired absence of cervix and uterus; Translations: [Acquired absence of both cervix and uterus] Onset: 04-09-2023 04-09-2023 Episodic Residual codes; unclassified (2 sources) Bilateral acquired absence of ovary; Translations: [Acquired absence of ovaries, bilateral] Onset: 04-09-2023 04-09-2023 Episodic Residual codes; unclassified (2 sources) Memory impairment; Translations: [Other amnesia] Onset: 04-09-2023 04-09-2023 Episodic Spondylosis; intervertebral disc disorders; other back problems (2 sources) Low back pain; Translations: [Low back pain] Onset: 04-20-2015 01-12-2024 Episodic Varicose veins of lower extremity (1 source) Varicose veins of right lower limb; Translations: [Asymptomatic varicose veins of right lower extremity] Onset: 09-11-2017 01-12-2024 Episodic Results Test Name Value Interpretation Reference Range Facility Office Visiton 11-19-2023 Follow-up visit [id number] Mary Rodriguez 1940 F Date Provider Department Center 11/19/2023 ONEL JONES CARD [facility] Family History Problem Relation Age of Onset Heart attack Mother Heart attack Brother Family Status - Relation Status Age at Mother Brother Level of Service:66885 DC OFFICE/OUTPATIENT ESTABLISHED MOD MDM 30 MIN [facility] 36on 09-19-2023 36 Yes, okay to take both. They are different classes of mediation. The dose of Jardiance is for her heart failure. She will need to continue to monitor her blood sugar at home and let PCP or us know if they start running low. Thanks [facility] 36on 09-15-2023 36 Please send Rx for farxiga 10mg daily to her pharmacy. If this is not covered by insurance then we can try Jardiance 10mg daily instead. F/U as scheduled. Thanks! [facility] BI MAMMOGRAM SCREENING TOMOS YNTHESIS BILATERALon 09-15-2023 [...] IS VERY IMPORTANT TO YOUR HEALTH. THE [place] GUIDELINES RECOMMEND THAT WOMEN 40 [...] BY: Skyler Yanez MD Normal Not Available Office Visiton 09-10-2023 Follow-up visit [id number] Mary Rodriguez 1940 F Date Provider Department Center 09/10/2023 Madelaine-DHEERAJ WHITEHEAD NICHOLAS Camacho Family History Problem Relation Age of Onset Heart attack Mother Heart attack Brother Family Status - Relation Status Age at Mother Brother Level of Service:04003 DC OFFICE/OUTPATIENT ESTABLISHED MOD MDM 30-39 MIN Reason for Visit and Comments: Congestive Heart Failure [127] Shortness of Breath [612147] Normal [facility] 36on 09-09-2023 36 I see she has an robson t with me tomorrow for SOB, leg swelling, weight gain. Please have her increase her lasix to 40mg BID. Thank you Normal [facility] [place] 125on 08-27-2023 CA 125 9 U/mL Normal <38 [facility] Comment on above: Result Comment: The Jorje ECLIA assay is used. Results obtained with different assay methods cannot be used interchangeably. Performed By: #### C A125 #### [facility] [employer] [address] [place] [address] [employer] Service Operator: Andrew Blakely MD 37on 05-07-2023 37 *Continue taking las ix 40mg twice daily. *Continue monitoring your weight daily. If you noticed 2-3 lbs weight gain in a day or 5 lbs in a week then take an extra tablet of lasix for 2-3 days until weight comes back down. Let us know if weight continues to increase despite extra doses of lasix. Normal [facility] Office Visiton 05-07-2023 Follow-up visit [id number] Mary Rodriguez 1940 Provider Department Center 05/07/2023 DHEERAJ CARNEY Family History Problem Relation Age of Onset Heart attack Mother Heart attack Brother Family Status - Relation Status Age at Mother Brother Level of Service:21234 DC OFFICE/OUTPATIENT ESTABLISHED LOW MDM 20-29 MIN Reason for Visit and Comments: Congestive Heart Failure [127] [facility] 36on 04-24-2023 36 Please let patient/niece know that her labs show her kidney function has improved. Continue lasix 40mg BID. Follow-up in 4-6 weeks. Thanks [facility] Telephoneon 04-24-2023 Telephone [id number] Mary Rodriguez 1940 Provider Department Center 04/24/2023 DHEERAJ CARNEY Family History Problem Relation Age of Onset Heart attack Mother Heart attack Brother Family Status - Relation Status Age at Mother Brother [facility] Office Visiton 04-16-2023 Follow-up visit [id number] Garcai 1940 Provider Department Center 04/16/2023 DHEERAJ CARNEY Family History Problem Relation Age of Onset Heart attack Mother Heart attack Brother Family Status - Relation Status Age at Mother Brother Level of Service:99451 DC OFFICE/OUTPATIENT ESTABLISHED MOD MDM 30-39 MIN Reason for Visit and Comments: Follow-up [[id number]] - 1 month follow up [facility] 36on 03-26-2023 36 Please let her/her niece know that her leg ultrasound showed no blood clots. Her labs from 03/17 show her kidney function worsened slightly. Would like for her to go back to taking lasix 40mg daily and monitor her weight daily. How has she been feeling and what have her weights been? [facility] Telephoneon 03-26-2023 Telephone [id number] Mary Rodriguez 1940 Date Provider Department Center 03/26/2023 DHEERAJ CARNEY Family History Problem Relation Age of Onset Heart attack Mother Heart attack Brother Family Status - Relation Status Age at Mother Brother Normal [facility] PROF CHEM 8 (BAS METB)on Anion gap [Moles/Vol] 13.7 mmol/L Normal [facility] Comment on above: Performed By: #### C MP, URIC #### [facility] [address] [address] [address] Hussein Camacho Calcium [Mass/Vol] 9.7 mg/dL Normal 8.5-10.1 [facility] Comment on above: Performed By: #### C MP, URIC #### [facility] [address] [address] [address] Hussein Camacho Chloride [Moles/Vol] 100 mmol/L Normal 98-107 [facility] Comment on above: Performed By: #### C MP, URIC #### [facility] [address] [address] [address] Hussein Camacho CO2 [Moles/Vol] 29.9 mmol/L Normal 21.0-32.0 [facility] Comment on above: Performed By: #### C MP, URIC #### [facility] [address] [address] [address] Hussein Camacho Creatinine [Mass/Vol] 1.87 mg/dL Critically high 0.55-1.02 [facility] Comment on above: Performed By: #### C MP, URIC #### [facility] [address] [address] [address] Hussein Camacho EGFR-AF [place] 31 mL/min/1.73m2 Critically low >=60 [facility] Comment on above: Performed By: #### C MP, URIC #### [facility] [address] [address] [address] Hussein Camacho EGFR-NON AF [place] 26 mL/min/1.73m2 Critically low >=60 [facility] Comment on above: Performed By: #### C MP, URIC #### [facility] [address] [address] [address] Hussein Camacho Glucose [Mass/Vol] 146 mg/dL Critically high 74-106 [facility] Comment on above: Performed By: #### C MP, URIC #### [facility] [address] [address] [address] Hussein Camacho Potassium [Moles/Vol] 4.6 mmol/L Normal 3.5-5.1 [facility] Comment on above: Performed By: #### C MP, URIC #### [facility] [address] [address] [address] Hussein Camacho Sodium [Moles/Vol] 139 mmol/L Normal 136-145 [facility] Comment on above: Performed By: #### C MP, URIC #### [facility] [address] [address] [address] Hussein Camacho Urea nitrogen [Mass/Vol] 67.0 mg/dL Critically high 7.0-18.0 [facility] Comment on above: Performed By: #### C MP, URIC #### [facility] [address] [address] [address] Hussein Camacoh Urea nitrogen/Creatinine [Mass ratio] 35.8 mg/mg Normal [facility] Comment on above: Performed By: #### C MP, URIC #### [facility] [address] [place] [address] Dr. Hussein Camacho US TRANG DOP LEG [...] by: ELA GASPAR Date: 2023-03-17 17:00 Normal [facility] BNPon 03-12-2023 Natriuretic peptide B (Bld) [Mass/Vol] 3283.0 pg/mL Critically high <=1,800.0 [facility] Comment on above: Performed By: #### C MP, URIC #### [facility] [address] [place] [address] Dr. Hussein Camacho D-DIMERon 03-12-2023 D-DIMER 1.34 mg/L FEU Critically high <=0.59 [facility] Comment on above: Performed By: #### C MP, URIC #### [facility] [address] [place] [id number] [address] Hussein Camacho D-DIMER COMMENTS SEE BELOW Normal [facility] Comment on above: Result Comment: Incr [...] Performed By: #### C MP, URIC #### [facility] [address] [place] [address] Dr. Hussein Camacho Office Visiton 03-12-2023 Follow-up visit [id number] MichaelMary alegria 1940 F Date Provider Department Center 03/12/2023 DHEERAJ CARNEY [facility] Family History Problem Relation Age of Onset Heart attack Mother Heart attack Brother Family Status - Relation Status Age at Mother Brother Level of Service:77929 DC OFFICE/OUTPATIENT ESTABLISHED MOD MDM 30-39 MIN Reason for Visit and Comments: Follow-up [071930] Edema [[id number]] Shortness of Breath [[id number]] Normal [facility] PROF CHEM 8 (BAS METB)on Anion gap [Moles/Vol] 12.4 mmol/L Normal [facility] Comment on above: Performed By: #### C MP, URIC #### [facility] [address], [place] [address] Dr. Hussein Camacho Calcium [Mass/Vol] 9.6 mg/dL Normal 8.5-10.1 [facility] Comment on above: Performed By: #### C MP, URIC #### [facility] [address], [place] [address] Dr. Hussein Camacho Chloride [Moles/Vol] 104 mmol/L Normal 98-107 [facility] Comment on above: Performed By: #### C MP, URIC #### [facility] [address] [address] [address] Hussein Camacho CO2 [Moles/Vol] 29.6 mmol/L Normal 21.0-32.0 [facility] Comment on above: Performed By: #### C MP, URIC #### [facility] [address] [address] [address] Hussein Camacho Creatinine [Mass/Vol] 1.55 mg/dL Critically high 0.55-1.02 [facility] Comment on above: Performed By: #### C MP, URIC #### [facility] [address] [place] [address] Dr. Hussein Camacho EGFR-AF CANADIAN 39 mL/min/1.73m2 Critically low >=60 [facility] Comment on above: Performed By: #### C MP, URIC #### [facility] [address] [place] [address] Dr. Hussein Camacho EGFR-NON AF CANADIAN 32 mL/min/1.73m2 Critically low >=60 [facility] Comment on above: Performed By: #### C MP, URIC #### [facility] [address] [place] [address] Dr. Hussein Camacho Glucose [Mass/Vol] 128 mg/dL Critically high 74-106 [facility] Comment on above: Performed By: #### C MP, URIC #### [facility] [address] [place] [address] Dr. Hussein Camacho Potassium [Moles/Vol] 3.9 mmol/L Normal 3.5-5.1 [facility] Comment on above: Performed By: #### C MP, URIC #### [facility] [address] [place] [address] Dr. Hussein Camacho Sodium [Moles/Vol] 142 mmol/L Normal 136-145 [facility] Comment on above: Performed By: #### C MP, URIC #### [facility] [address], [place] [address] Dr. Hussein Camacho Urea nitrogen [Mass/Vol] 49.0 mg/dL Critically high 7.0-18.0 [facility] Comment on above: Performed By: #### C MP, URIC #### [facility] [address], [place] [address] Dr. Hussein Camacho Urea nitrogen/Creatinine [Mass ratio] 31.6 mg/mg Normal [facility] Comment on above: Performed By: #### C MP, URIC #### [facility] [address], [place] [address] Dr. Hussein Camacho ECHOCARDIO M/2D COMPLETEon 0 03-10-2023 ECHOCARDIO M/2D COMPLETE Patient Name Site Name YESY RODRIGUEZ [facility] Account No Medical Record Number Age Sex Date Time [id number] [facility]:[id number] F 03/10/2023 14:44 At the Request [...] Area (VTI): 0.61 cm2, 0.62 cm2 Deceleration [place]: 1.84 m/s2 Pressure Half-Time: 571.86 ms Peak [...] Walters M.D. on 03/10/2023 at 17:00 Normal [facility] GLYCOHEMOGLOBIN A1Con 2022 ADA RECOMMENDATION SEE BELOW Normal [facility] Comment on above: Result Comment: ADA RECOMMENDED LIMIT 4.0 - 6.0 ADA THERAPEUTIC TARGET < 7.0 ACTION SUGGESTED > 7.0 Performed By: #### A 1C #### [facility] [address] [place] [address] Dr. Hussein Camacho Glucose [Mass/Vol] 154 mg/dL Normal [facility] Comment on above: Performed By: #### A 1C #### [facility] [address] [place] [address] Dr. Hussein Camacho HbA1c (Bld) [Mass fraction] 7.0 % Critically high 4.5-6.2 [facility] Comment on above: Performed By: #### A 1C #### [facility] [address] [place] [address] Dr. Hussein Camacho PROF CHEM 8 (BAS METB)on Anion gap [Moles/Vol] 8.3 mmol/L Normal [facility] Comment on above: Performed By: #### C MP, URIC #### [facility] [address] [place] [address] Dr. Hussein Camacho Calcium [Mass/Vol] 9.1 mg/dL Normal 8.5-10.1 [facility] Comment on above: Performed By: #### C MP, URIC #### [facility] [address] [address] [address] Hussein Camacho Chloride [Moles/Vol] 106 mmol/L Normal 98-107 [facility] Comment on above: Performed By: #### C MP, URIC #### [facility] [address] [address] [address] Hussein Camacho CO2 [Moles/Vol] 28.2 mmol/L Normal 21.0-32.0 [facility] Comment on above: Performed By: #### C MP, URIC #### [facility] [address] [address] [address] Hussein Camacho Creatinine [Mass/Vol] 1.04 mg/dL Critically high 0.55-1.02 [facility] Comment on above: Performed By: #### C MP, URIC #### [facility] [address] [place] [address] Dr. Hussein Camacho EGFR-AF CANADIAN >60 Normal >=[address] [facility] Comment on above: Performed By: #### C MP, URIC #### [facility] [address] [place] [address] Dr. Hussein Camacho EGFR-NON AF CANADIAN 50 mL/min/1.73m2 Critically low >=60 [facility] Comment on above: Performed By: #### C MP, URIC #### [facility] [address] [place] [address] Dr. Hussein Camacho Glucose [Mass/Vol] 122 mg/dL Critically high 74-106 [facility] Comment on above: Performed By: #### C MP, URIC #### [facility] [address] [place] [address] Dr. Hussein Camacho Potassium [Moles/Vol] 4.5 mmol/L Normal 3.5-5.1 [facility] Comment on above: Performed By: #### C MP, URIC #### [facility] [address] [address] [address] Hussein Camacho Sodium [Moles/Vol] 138 mmol/L Normal 136-145 [facility] Comment on above: Performed By: #### C MP, URIC #### [facility] [id number] Hussein Camacho Urea nitrogen [Mass/Vol] 33.0 mg/dL Critically high 7.0-18.0 [facility] Comment on above: Performed By: #### C MP, URIC #### [facility] [address], [place] [address] Dr. Hussein Camacho Urea nitrogen/Creatinine [Mass ratio] 31.7 mg/mg Normal [facility] Comment on above: Performed By: #### C MP, URIC #### [facility] [address], [place] [address] Dr. Hussein Camacho CA 125on 01-25-2023 CA 125 9 U/mL Normal <38 [facility] Comment on above: Result Comment: The Jorje ECLIA assay is used. Results obtained with different assay methods cannot be used interchangeable. Performed By: #### C A125 #### [facility] [address] [place] [address] [employer] Service Operator: Andrew Blakely MD CA 125on 01-24-2023 Cancer Ag 125 Qn 9 [arb'U]/mL NINF - 38 U/mL [facility] Comment on above: The Jorje ECLIA as say is used. Results obtained with different assay methods cannot be used interchangeable. [facility] Viacor 36on 01-23-2023 36 Patient's caregiver (mariama Barone) called to make us aware that home health clinical liaison stopped her spironolactone due to elevated potassium. 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 She said nephrology didn't want to recheck labs again for another 6 months. Just wanted to make you aware. If you'd like to order anything, please let me know. Thanks. Normal [facility] CT HEAD WO CONon 01-13-2023 CT HEAD [...] SKYLER MEYER Date: 2023-01-13 13:33 Normal [facility] PROF 14(COMP METB)on 023 Albumin [Mass/Vol] 4.3 g/dL Normal 3.4-5.0 [facility] Comment on above: Performed By: #### C MP #### [facility] [address] [place] [address] Dr. Hussein Camacho Albumin/Globulin [Mass ratio] 1.2 {ratio} Normal [facility] Comment on above: Performed By: #### C MP #### [facility] [address] [place] [address] Dr. Hussein Camacho ALP [Catalytic activity/Vol] 96 U/L Normal 46-116 [facility] Comment on above: Performed By: #### C MP #### [facility] [address] [place] [address] Dr. Hussein Camacho ALT [Catalytic activity/Vol] 43 U/L Normal 14-59 [facility] Comment on above: Performed By: #### C MP #### [facility] [address] [place] [address] Dr. Hussein Camacho Anion gap [Moles/Vol] 13.2 mmol/L Normal [facility] Comment on above: Performed By: #### C MP #### [facility] [address] [place] [address] Dr. Hussein Camacho AST [Catalytic activity/Vol] 30 U/L Normal 15-37 [facility] Comment on above: Performed By: #### C MP #### [facility] [address] [address] [address] Hussein Camacho Bilirubin [Mass/Vol] 0.7 mg/dL Normal 0.2-1.0 [facility] Comment on above: Performed By: #### C MP #### [facility] [address] [address] [address] Hussein Camacho Calcium [Mass/Vol] 9.7 mg/dL Normal 8.5-10.1 [facility] Comment on above: Performed By: #### C MP #### [facility] [address] [address] [address] Hussein Camacho Chloride [Moles/Vol] 105 mmol/L Normal 98-107 [facility] Comment on above: Performed By: #### C MP #### [facility] [address] [address] [address] Hussein Camacho CO2 [Moles/Vol] 28.5 mmol/L Normal 21.0-32.0 [facility] Comment on above: Performed By: #### C MP #### [facility] [address] [address] [address] Hussein Camacho Creatinine [Mass/Vol] 1.48 mg/dL Critically high 0.55-1.02 [facility] Comment on above: Performed By: #### C MP #### [facility] [address] [address] [address] Hussein Camacho EGFR-AF CANADIAN 41 mL/min/1.73m2 Critically low >=60 [facility] Comment on above: Performed By: #### C MP #### [facility] [address] [address] [address] Hussein Camacho EGFR-NON AF CANADIAN 34 mL/min/1.73m2 Critically low >=60 [facility] Comment on above: Performed By: #### C MP #### [facility] [address] [address] [address] Hussein Camacho Globulin (S) [Mass/Vol] 3.6 g/dL Normal [facility] Comment on above: Performed By: #### C MP #### [facility] [address] [address] [address] Hussein Camacho Glucose [Mass/Vol] 140 mg/dL Critically high 74-106 [facility] Comment on above: Performed By: #### C MP #### [facility] [address] [address] [address] Hussein Camacho Potassium [Moles/Vol] 5.7 mmol/L Critically high 3.5-5.1 [facility] Comment on above: Performed By: #### C MP #### [facility] [address] [address] [address] Hussein Camacho Protein [Mass/Vol] 7.9 g/dL Normal 6.4-8.2 [facility] Comment on above: Performed By: #### C MP #### [facility] [address] [address] [address] Hussein Camacho Sodium [Moles/Vol] 141 mmol/L Normal 136-145 [facility] Comment on above: Performed By: #### C MP #### [facility] [address] [address] [address] Hussein Camacho Urea nitrogen [Mass/Vol] 42.0 mg/dL Critically high 7.0-18.0 [facility] Comment on above: Performed By: #### C MP #### [facility] [address] [address] [address] Hussein Camacho Urea nitrogen/Creatinine [Mass ratio] 28.4 mg/mg Normal [facility] Comment on above: Performed By: #### C MP #### [facility] [address] [address] [address] Hussein Camacho MRI Shoulder w/o Lefton 10-01 MRI Shoulder w/o Left HISTORY: Lateral left-sided shoulder pain with limited range of motion. [...] by Boaz Weeks on 10/14/[address] [facility] Specialist PTH INTACTon 09-12-2022 PTH, Intact 46 pg/mL Normal 15-65 [facility] Comment on above: Performed By: #### P THINT #### [facility] [address] [place] [address] Dr. Hussein Camacho CBC AUTO DIFFon 09-10-2022 BASO # 0.1 103/ul Normal 0.0-0.1 [facility] Comment on above: Performed By: #### C BC #### [facility] [address] [address] [address] Hussein Camacho Basophils/100 WBC (Bld) 0.8 % Normal 0.2-2.0 [facility] Comment on above: Performed By: #### C BC #### [facility] [address] [place] [address] Dr. Hussein Camacho EO # 0.3 103/ul Normal 0.0-0.7 [facility] Comment on above: Performed By: #### C BC #### [facility] [address] [address] [address] Hussein Camacho Eosinophils/100 WBC (Bld) 3.3 % Normal 0.9-7.0 [facility] Comment on above: Performed By: #### C BC #### [facility] [address] [place] [address] Dr. Hussein Camacho Erythrocyte distribution width (RBC) [Ratio] 13.6 % Normal 11.0-15.0 [facility] Comment on above: Performed By: #### C BC #### [facility] [address] [place] [address] Dr. Hussein Camacho Hematocrit (Bld) [Volume fraction] 41.5 % Normal 36.0-48.0 [facility] Comment on above: Performed By: #### C BC #### [facility] [address] [place] [address] Dr. Hussein Camacho Hemoglobin (Bld) [Mass/Vol] 13.5 g/dL Normal 12.0-16.0 [facility] Comment on above: Performed By: #### C BC #### [facility] [address] [place] [address] Dr. Hussein Camacho IG # 0.03 10e3/ul Normal 0.00-0.03 [facility] Comment on above: Performed By: #### C BC #### [facility] [address] [place] [address] Dr. Hussein Camacho IG % 0.3 % Normal 0.0-0.5 [facility] Comment on above: Performed By: #### C BC #### [facility] [address] [place] [address] Dr. Hussein Camacho LYMPH # 1.3 103/ul Normal 1.2-3.8 [facility] Comment on above: Performed By: #### C BC #### [facility] [address] [place] [address] Dr. Hussein Camacho Lymphocytes/100 WBC (Bld) 12.7 % Critically low 20.5-60.0 [facility] Comment on above: Performed By: #### C BC #### [facility] [address] [place] [address] Dr. Hussein Camacho MANUAL DIFF REQ NO Normal [facility] Comment on above: Performed By: #### C BC #### [facility] [address] [place] [address] Dr. Hussein Camacho MCH (RBC) [Entitic mass] 31.4 pg Normal 26.7-34.0 [facility] Comment on above: Performed By: #### C BC #### [facility] [address] [address] [address] Hussein Camacho MCHC (RBC) [Mass/Vol] 32.5 g/dL Normal 29.9-35.2 [facility] Comment on above: Performed By: #### C BC #### [facility] [address] [address] [address] Hussein Camacho MCV (RBC) [Entitic vol] 96.5 fL Normal 81.0-99.0 [facility] Comment on above: Performed By: #### C BC #### [facility] [address] [address] [address] Hussein Camacho MONO # 0.9 103/ul Critically high 0.3-0.8 [facility] Comment on above: Performed By: #### C BC #### [facility] [address] [place] [address] Dr. Hussein Camacho Monocytes/100 WBC (Bld) 9.0 % Normal 1.7-12.0 [facility] Comment on above: Performed By: #### C BC #### [facility] [address] [place] [address] Dr. Hussein Camacho NEUT # 7.5 103/ul Critically high 1.4-6.5 [facility] Comment on above: Performed By: #### C BC #### [facility] [address] [place] [address] Dr. Hussein Camacho Neutrophils/100 WBC (Bld) 73.9 % Normal 43.0-75.0 [facility] Comment on above: Performed By: #### C BC #### [facility] [address] [address] [address] Hussein Camacho Platelet mean volume (Bld) [Entitic vol] 10.6 fL Normal 9.5-13.5 [facility] Comment on above: Performed By: #### C BC #### [facility] [address] [place] [address] Dr. Hussein Camacho PLT 287 103/ul Normal 150-450 [facility] Comment on above: Performed By: #### C BC #### [facility] [address] [place] [address] Dr. Hussein Camacho RBC 4.30 106/ul Normal 4.20-5.40 [facility] Comment on above: Performed By: #### C BC #### [facility] [address] [address] [address] Hussein Camacho WBC 10.2 103/ul Normal 4.0-11.0 [facility] Comment on above: Performed By: #### C BC #### [facility] [address] [place] [address] Dr. Hussein Camacho PROF 14(COMP METB)on 022 Albumin [Mass/Vol] 4.3 g/dL Normal 3.4-5.0 [facility] Comment on above: Performed By: #### C MP, URIC #### [facility] [address] [place] [address] Dr. Hussein Camacho Albumin/Globulin [Mass ratio] 1.1 {ratio} Normal [facility] Comment on above: Performed By: #### C MP, URIC #### [facility] [address] [place] [address] Dr. Hussein Camacho ALP [Catalytic activity/Vol] 102 U/L Normal 46-116 [facility] Comment on above: Performed By: #### C MP, URIC #### [facility] [address] [place] [address] Dr. Hussein Camacho ALT [Catalytic activity/Vol] 47 U/L Normal 14-59 [facility] Comment on above: Performed By: #### C MP, URIC #### [facility] [address] [place] [address] Dr. Hussein Camacho Anion gap [Moles/Vol] 12.4 mmol/L Normal [facility] Comment on above: Performed By: #### C MP, URIC #### [facility] [address] [place] [address] Dr. Hussein Camacho AST [Catalytic activity/Vol] 23 U/L Normal 15-37 [facility] Comment on above: Performed By: #### C MP, URIC #### [facility] [address] [address] [address] Hussein Camacho Bilirubin [Mass/Vol] 0.4 mg/dL Normal 0.2-1.0 [facility] Comment on above: Performed By: #### C MP, URIC #### [facility] [address] [address] [address] Hussein Camacho Calcium [Mass/Vol] 9.2 mg/dL Normal 8.5-10.1 [facility] Comment on above: Performed By: #### C MP, URIC #### [facility] [address] [address] [address] Hussein Camacho Chloride [Moles/Vol] 102 mmol/L Normal 98-107 [facility] Comment on above: Performed By: #### C MP, URIC #### [facility] [address] [place] [address] Dr. Hussein Camacho CO2 [Moles/Vol] 28.5 mmol/L Normal 21.0-32.0 [facility] Comment on above: Performed By: #### C MP, URIC #### [facility] [address] [place] [address] Dr. Hussein Camacho Creatinine [Mass/Vol] 1.55 mg/dL Critically high 0.55-1.02 [facility] Comment on above: Performed By: #### C MP, URIC #### [facility] [address] [place] [address] Dr. Hussein Camacho EGFR-AF CANADIAN 39 mL/min/1.73m2 Critically low >=60 [facility] Comment on above: Performed By: #### C MP, URIC #### [facility] [address] [place] [address] Dr. Hussein Camacho EGFR-NON AF CANADIAN 32 mL/min/1.73m2 Critically low >=60 [facility] Comment on above: Performed By: #### C MP, URIC #### [facility] [address] [place] [address] Dr. Hussein Camacho Globulin (S) [Mass/Vol] 3.9 g/dL Normal [facility] Comment on above: Performed By: #### C MP, URIC #### [facility] [address] [address] [address] Hussein Camacho Glucose [Mass/Vol] 160 mg/dL Critically high 74-106 [facility] Comment on above: Performed By: #### C MP, URIC #### [facility] [address] [address] [address] Hussein Camacho Potassium [Moles/Vol] 3.9 mmol/L Normal 3.5-5.1 [facility] Comment on above: Performed By: #### C MP, URIC #### [facility] [address] [address] [address] Hussein Camacho Protein [Mass/Vol] 8.2 g/dL Normal 6.4-8.2 [facility] Comment on above: Performed By: #### C MP, URIC #### [facility] [address] [place] [address] Dr. Hussein Camacho Sodium [Moles/Vol] 139 mmol/L Normal 136-145 [facility] Comment on above: Performed By: #### C MP, URIC #### [facility] [address] [place] [address] Dr. Hussein Camacho Urea nitrogen [Mass/Vol] 42.0 mg/dL Critically high 7.0-18.0 [facility] Comment on above: Performed By: #### C MP, URIC #### [facility] [address] [place] [address] Dr. Hussein Camacho Urea nitrogen/Creatinine [Mass ratio] 27.1 mg/mg Normal [facility] Comment on above: Performed By: #### C MP, URIC #### [facility] [address] [place] [address] Dr. Hussein Camacho UA RANDOMon 09-10-2022 Bilirubin Ql (U) Negative Normal NEGATIVE [facility] Comment on above: Performed By: #### U A #### [facility] [address] [address] [address] Hussein Camacho Clarity (U) CLEAR Normal CLEAR [facility] Comment on above: Performed By: #### U A #### [facility] [address] [place] [address] Dr. Hussein Camacho Color (U) LT. YELLOW Normal YELLOW [facility] Comment on above: Performed By: #### U A #### [facility] [address] [place] [address] Dr. Hussein Camacho Glucose Ql (U) Negative Normal NEGATIVE [facility] Comment on above: Performed By: #### U A #### [facility] [address] [place] [address] Dr. Hussein Camacho Hemoglobin Ql (U) TRACE-INTACT Abnormal NEGATIVE [facility] Comment on above: Performed By: #### U A #### [facility] [address] [place] [address] Dr. Hussein Camacho Ketones Ql (U) Negative Normal NEGATIVE [facility] Comment on above: Performed By: #### U A #### [facility] [address] [place] [address] Dr. Hussein Camacho LEUKOCYTES SMALL Abnormal NEGATIVE [facility] Comment on above: Performed By: #### U A #### [facility] [address] [place] [address] Dr. Hussein Camacho Nitrite Ql (U) Negative Normal NEGATIVE [facility] Comment on above: Performed By: #### U A #### [facility] [address] [place] [address] Dr. Hussein Camacho pH (U) 6.0 [pH] Normal 5-9 [facility] Comment on above: Performed By: #### U A #### [facility] [address] [place] [address] Dr. Hussein Camacho SPEC GRAVITY 1.020 Normal 1.005-<=1.02 5 [facility] Comment on above: Performed By: #### U A #### [facility] [address] [place] [address] Dr. Hussein Camacho UA PROTEIN Negative Normal NEGATIVE/ TRACE [facility] Comment on above: Performed By: #### U A #### [facility] [address] [place] [address] Dr. Hussein Camacho Urobilinogen Qn (U) 0.2 {Naina'U}/dL Normal 0.2 - 1. 0 [facility] Comment on above: Performed By: #### U A #### [facility] [address] [place] [address] Dr. Hussein Camacho URIC ACID SERUMon 09-10-2022 Urate [Mass/Vol] 7.5 mg/dL Critically high 2.6-6.0 [facility] Comment on above: Performed By: #### C MP, URIC #### [facility] [address] [place] [address] Dr. Hussein Camacho URINE T PROTEIN CREAT RATIOo n 09-10-2022 Protein (U) [Mass/Vol] 7.3 mg/dL Normal <=12.0 [facility] Comment on above: Performed By: #### U RTPCR #### [facility] [address] [place] [address] Dr. Hussein Camacho UR PROT CREAT RAT 0.13 Normal [facility] Comment on above: Performed By: #### U RTPCR #### [facility] [address] [place] [address] Dr. Hussein Camacho URINE CREAT 56.41 mg/dL Normal 20.00-300.00 [facility] Comment on above: Performed By: #### U RTPCR #### [facility] [address] [place] [address] Dr. Hussein Camacho VITAMIN D 25 OHon 09-10-2022 VIT D 25-OH 50.6 ng/mL Normal [facility] Comment on above: Performed By: #### V ITAD #### [facility] [address] [place] [address] Dr. Hussein Camacho VIT D RANGES SEE BELOW Normal [facility] Comment on above: Result Comment: <20 ng/mL Vit D deficient 20 - <30 ng/mL Vit D insufficient 30 - 100 ng/mL Vit D sufficient >100 ng/mL Potential Toxicity Performed By: #### V ITAD #### [facility] [address] [place] [address] Dr. Hussein Camacho ECHOCARDIO M/2D COMPLETEon 0 9-21-2022 ECHOCARDIO M/2D COMPLETE Patient: YESY RODRIGUEZ Exam Date: 08/21/2022 : 1940 Gender:F Ordering : KATHARINA JOVEL Admission #: [id number] Family : DR HUNT Shyam WARE Order #: [id number] CLICK HERE TO VIEW EXAM ECHOCARDIOGRAM REPORT [...] Walters M.D. on 08/23/2022 at 17:05 Normal [facility] CA 125on 07-10-2022 CA 125 8 U/mL NINF - 38 U/mL [facility] Comment on above: The Jorje ECLIA as say is used. Results obtained with different assay methods cannot be used interchangeable. [facility] ALBUMIN, RANDOM URINE W/CREA TININEon 06-11-2022 ALBUMIN, URINE 2.5 mg/dL Normal See Note: [facility] Comment on above: Order Comment: FASTI NG:YESFASTING: YES Result Comment: Refe rence Range: Reference Range Not established Performed By: #### 1 0165, 867 #### [facility] [address], [address] [place] [address] Legal Job Titles: Matt Beasley MD ALBUMIN/CREATININE RATIO, RANDOM URINE 39 mcg/mg creat High <30 [facility] Comment on above: Order [...] #### 1 016, 867 #### [facility] [place] [address] Legal Job Titles: Matt Beasley MD Creatinine (U) [Mass/Vol] 64 mg/dL Normal 20-275 [facility] Comment on above: Order Comment: FASTI NG:YESFASTING: YES Performed By: #### 1 016, 867 #### [facility] [place] [address] Legal Job Titles: Matt Beasley MD BASIC METABOLIC PANELon 05-31 Calcium [Mass/Vol] 10.0 mg/dL Normal 8.6-10.4 [facility] Comment on above: Performed By: #### 1 016, 867 #### [facility] [place] [address] Legal Job Titles: Matt Beasley MD Chloride [Moles/Vol] 103 mmol/L Normal 98-110 [facility] Comment on above: Performed By: #### 1 016, 867 #### [facility] [address], [address] [place] [address] Legal Job Titles: Matt Beasley MD CO2 [Moles/Vol] 25 mmol/L Normal 20-32 [facility] Comment on above: Performed By: #### 1 0165, 867 #### [facility] [place] [address] Legal Job Titles: Matt Beasley MD Creatinine [Mass/Vol] 1.43 mg/dL High 0.60-0.[address] [facility] Comment on above: Performed By: #### 1 016, 867 #### [facility] [place] [address] Legal Job Titles: Matt Beasley MD GFR/1.73 sq M.predicted among non-blacks MDRD (S/P/Bld) [Vol rate/Area] 36 mL/min/{1.73_m2} Low > OR = 60 [facility] Comment on above: Result Comment: The eGFR is based on the CKD-EPI 2020 equation. To calculate the new eGFR from a previous Creatinine or Cystatin C result, go to https://www.kidney.org/professionals/ kdoqi/gfr%5Fcalculator Performed By: #### 1 016, 867 #### [facility] [place] [address] Legal Job Titles: Matt Beasley MD Glucose [Mass/Vol] 124 mg/dL High 65-99 [facility] Comment on above: Result Comment: Fasting reference interval For someone without known diabetes, a glucose value between 100 and 125 mg/dL is consistent with prediabetes and should be confirmed with a follow-up test. Performed By: #### 1 0165, 867 #### [facility] [place] [address] Legal Job Titles: Matt Beasley MD Potassium [Moles/Vol] 5.5 mmol/L High 3.5-5.[address] [facility] Comment on above: Performed By: #### 1 0165, 867 #### [facility] [address], [address] [place] [address] Legal Job Titles: Matt Beasley MD Sodium [Moles/Vol] 138 mmol/L Normal 135-146 [facility] Comment on above: Performed By: #### 1 0165, 867 #### [facility] [address], [address] [place] [address] Legal Job Titles: Matt Beasley MD Urea nitrogen [Mass/Vol] 43 mg/dL High 7-25 [facility] Comment on above: Performed By: #### 1 0165, 867 #### [facility] [address], [address] [place] [address] Legal Job Titles: Matt Beasley MD Urea nitrogen/Creatinine [Mass ratio] 30 mg/mg High 6-22 [facility] Comment on above: Performed By: #### 1 016, 867 #### [facility] [address], [address] [place] [address] Legal Job Titles: Matt Beasley MD HEMOGLOBIN A1con 06-11-2022 HEMOGLOBIN [...] diabetes for children. Performed By: #### 1 016, 867 #### [facility] [address], [address] [place] [address] Legal Job Titles: Matt Beasley MD ECHOCARDIO M/2D COMPLETEon 0 06-05-2022 ECHOCARDIO M/2D COMPLETE Patient: YESY RODRIGUEZ Exam Date: 06/05/2022 : 1940 Gender:F Ordering : DHEERAJ WHITEHEAD Admission #: [id number] Family : DR GRIFFITHSDELIO BermudezJulián JOSEESTACIE Order #: [id number] CLICK HERE TO VIEW EXAM ECHOCARDIOGRAM REPORT [...] M.D. on 06/05/2022 at 13:14 Normal [facility] MAMM SCREEN 3D GIRMA CADon 05-29-2022 MAMM SCREEN 3D GIRMA CAD Patient: YESY RODRIGUEZ Exam Date: 05/29/2022 : 1940 Gender:F Ordering : DR ZACHARY WARE Admission #: [id number] Family : Order #: [id number] CLICK HERE TO VIEW EXAM RADIOLOGY REPORT [...] ovarian cancer at age 36. LOCATION: [facility] BREAST COMPOSITION: Heterogeneously dense,which may obscure small [...] Schreiber MD on 06/11/2022 at 14:06 Normal [facility] PROF CHEM 8 (BAS METB)on Anion gap [Moles/Vol] 15.1 mmol/L Normal [facility] Comment on above: Performed By: #### B MP #### [facility] [address] [place] [address] Dr. Hussein Camacho Calcium [Mass/Vol] 9.6 mg/dL Normal 8.5-10.1 [facility] Comment on above: Performed By: #### B MP #### [facility] [address] [place] [address] Dr. Hussein Camacho Chloride [Moles/Vol] 103 mmol/L Normal 98-107 [facility] Comment on above: Performed By: #### B MP #### [facility] [address] [place] [address] Dr. Hussein Camacho CO2 [Moles/Vol] 26.0 mmol/L Normal 21.0-32.0 [facility] Comment on above: Performed By: #### B MP #### [facility] [address] [place] [address] Dr. Hussein Camacho Creatinine [Mass/Vol] 1.51 mg/dL Critically high 0.55-1.02 [facility] Comment on above: Performed By: #### B MP #### [facility] [address] [place] [address] Dr. Hussein Camacho EGFR-AF CANADIAN 40 mL/min/1.73m2 Critically low >=60 [facility] Comment on above: Performed By: #### B MP #### [facility] [address] [place] [address] [address] Hussein Camacho EGFR-NON AF CANADIAN 33 mL/min/1.73m2 Critically low >=60 [facility] Comment on above: Performed By: #### B MP #### [facility] [address] [place] [address] Dr. Hussein Camacho Glucose [Mass/Vol] 120 mg/dL Critically high 74-106 [facility] Comment on above: Performed By: #### B MP #### [facility] [address] [place] [address] [address] Hussein Camacho Potassium [Moles/Vol] 5.1 mmol/L Normal 3.5-5.1 [facility] Comment on above: Performed By: #### B MP #### [facility] [address] [place] [address] [address] Hussein Camacho Sodium [Moles/Vol] 139 mmol/L Normal 136-145 [facility] Comment on above: Performed By: #### B MP #### [facility] [address] [place] [address] [address] Hussein Camacho Urea nitrogen [Mass/Vol] 40.0 mg/dL Critically high 7.0-18.0 [facility] Comment on above: Performed By: #### B MP #### [facility] [address] [place] [address] [address] Hussein Camacho Urea nitrogen/Creatinine [Mass ratio] 26.5 mg/mg Normal [facility] Comment on above: Performed By: #### B MP #### [facility] [address] [place] [address] [address] Hussein Camacho Basic Metabolic Panelon -2 Anion gap [Moles/Vol] 10 mmol/L 9 - 17 mmol/L [facility] Calcium [Mass/Vol] 9.8 mg/dL 8.6 - 10. 4 mg/dL [facility] Chloride [Moles/Vol] 104 mmol/L 98 - 10 7 mmol/L [facility] CO2 [Moles/Vol] 25 mmol/L 20 - 31 mmol/L [facility] Creatinine [Mass/Vol] 1.23 mg/dL High 0.50 - 0.90 mg/dL [facility] GFR 51 mL/min Low >60 [facility] GFR Non- 42 mL/min Low >60 [facility] Glucose [Mass/Vol] 133 mg/dL High 70 - 99 mg/dL [facility] Interpretation and review of laboratory results Abnormal [facility] Potassium [Moles/Vol] 4.2 mmol/L 3.7 - 5.3 mmol/L [facility] Sodium [Moles/Vol] 139 mmol/L 135 - 144 mmol/L [facility] Urea nitrogen (BldV) [Mass/Vol] 32 mg/dL High 8 - 23 mg/dL [facility] Urea nitrogen/Creatinine (Bld) [Mass ratio] 26 High [facility] - Chemistry and C hemistry - challengeon 03-27-2022 GFR/1.73 sq M.predicted MDRD (S/P/Bld) [Vol rate/Area] [facility] Comment on above: Average GFR for 70 o r more years old: 75 mL/min/1.73sq m Chronic Kidney Disease: <60 mL/min/1.73sq m Kidney failure: <15 mL/min/1.73sq m eGFR calculated using average adult body mass. Additional eGFR calculator available at: http://www.[employer]/multiple_crcl_2012.htm Stage 1: Some kidney damage normal GFR Stage 2: Mild kidney damage GFR 60-89 Stage 3: Moderate kidney damage GFR 30-59 Stage 4: Severe kidney damage GFR 15-29 Stage 5: Severe kidney damage GFR <15 ESRD - chronic treatment by dialysis or transplant BASIC METABOLIC PANELon Calcium [Mass/Vol] 10.1 mg/dL Normal 8.6-10.4 [facility] Comment on above: Performed By: #### 1 7306, 905, 07619, 718, 15813, 622, 02478, 496 #### [facility] [address], [address] [place] [address] Legal Job Titles: Matt Beasley MD Chloride [Moles/Vol] 100 mmol/L Normal 98-110 [facility] Comment on above: Performed By: #### 1 7306, 905, 41271, 718, 43019, 622, 05194, 496 #### [facility] [address], [address] [place] [address] Legal Job Titles: Matt Beasley MD CO2 [Moles/Vol] 28 mmol/L Normal 20-32 [facility] Comment on above: Performed By: #### 1 7306, 905, 66944, 718, 42038, 622, 01185, 496 #### [facility] [address], [address] [place] [address] Legal Job Titles: Matt Beasley MD Creatinine [Mass/Vol] 1.89 mg/dL High 0.60-0.[address] [facility] Comment on above: Result Comment: For patients >49 years of age, the reference limit for Creatinine is approximately 13% higher for people identified as -Filipino. Performed By: #### 1 7306, 905, 97940, 718, 74926, 622, 22496, 496 #### [facility] [address], [address] [place] [address] Legal Job Titles: Matt Beasley MD eGFR NON-AFR. CANADIAN 24 mL/min/1.73m2 Low > OR = 60 [facility] Comment on above: Performed By: #### 1 7306, 905, 45718, 718, 89805, 622, 08908, 496 #### [facility] [address], [address] [place] [address] Legal Job Titles: Matt Beasley MD GFR/1.73 sq M.predicted among blacks MDRD (S/P/Bld) [Vol rate/Area] 28 mL/min/{1.73_m2} Low > OR = 60 [facility] Comment on above: Performed By: #### 1 7306, 905, 54995, 718, 97466, 622, 91537, 496 #### [facility] [place] [address] Legal Job Titles: Matt Beasley MD Glucose [Mass/Vol] 123 mg/dL High 65-99 [facility] Comment on above: Result Comment: Fasting reference interval For someone without known diabetes, a glucose value between 100 and 125 mg/dL is consistent with prediabetes and should be confirmed with a follow-up test. Performed By: #### 1 7306, 905, 04547, 718, 08742, 622, 96267, 496 #### [facility] [place] [address] Legal Job Titles: Matt Beasley MD Potassium [Moles/Vol] 4.7 mmol/L Normal 3.5-5.[address] [facility] Comment on above: Performed By: #### 1 7306, 905, 58527, 718, 46448, 622, 80214, 496 #### [facility] [address], [address] [place] [address] Legal Job Titles: Matt Beasley MD Sodium [Moles/Vol] 136 mmol/L Normal 135-146 [facility] Comment on above: Performed By: #### 1 7306, 905, 26464, 718, 82030, 622, 40886, 496 #### [facility] [place] [address] Legal Job Titles: Matt Beasley MD Urea nitrogen [Mass/Vol] 64 mg/dL High 7-25 [facility] Comment on above: Performed By: #### 1 7306, 905, 55856, 718, 06566, 622, 71426, 496 #### [facility] [address], [address] [place] [address] Legal Job Titles: Matt Beasley MD Urea nitrogen/Creatinine [Mass ratio] 34 mg/mg High 6-22 [facility] Comment on above: Performed By: #### 1 7306, 905, 22229, 718, 08767, 622, 82784, 496 #### [facility] [place] [address] Legal Job Titles: Matt Beasley MD HEMOGLOBIN A1con 03-05-2022 HEMOGLOBIN A1c 6.4 % of total Hgb High <5.7 [facility] Comment on above: Result Comment: [...] #### 1 0165, 867 #### [facility] [address], [address] [place] [address] Legal Job Titles: Matt Beasley MD MAGNESIUMon 03-05-2022 Magnesium [Mass/Vol] 2.3 mg/dL Normal 1.5-2.5 [facility] Comment on above: Order Comment: FASTI NG:YES FASTING: YES Performed By: #### 1 7306, 905, 17766, 718, 40608, 622, 52865, 496 #### [facility] [address], [address] [place] [address] Legal Job Titles: Matt Beasley MD PHOSPHATE ( PHOSPHORUS)on 03-05-2022 Phosphate [Mass/Vol] 4.5 mg/dL High 2.1-4.3 [facility] Comment on above: Performed By: #### 1 7306, 905, 63756, 718, 52474, 622, 15651, 496 #### [facility] [address], [address] [place] [address] Legal Job Titles: Matt Beasley MD PTH, INTACT WITHOUT CALCIUMo [...] High Performed By: #### 1 7306, 905, 47097, 718, 22411, 622, 13053, 496 #### [facility] [address], [address] [place] [address] Legal Job Titles: Matt Beasley MD TSH W/REFLEX TO FT4on 2021 TSH W/REFLEX TO FT4 4.31 mIU/L Normal 0.40-4.50 [facility] Comment on above: Performed By: #### 1 7306, 905, 04480, 718, 62312, 622, 55262, 496 #### [facility] [address], [address] [place] [address] Legal Job Titles: Matt Beasley MD URIC ACIDon 03-05-2022 Urate [Mass/Vol] 8.7 mg/dL High 2.5-7.0 [facility] Comment on above: Result Comment: Ther apeutic target for gout patients: <6.0 mg/dL Performed By: #### 1 7306, 905, 99940, 718, 39416, 622, 33136, 496 #### [facility] [address], [address] [place] [address] Legal Job Titles: Matt Beasley MD VITAMIN D,25-OH,TOTAL,IAon 0 03-05-2022 [...] D, (D2,D3), LC/MS/MS is recommended: order code 62430 (patients >2yrs). See Note 1 Note 1 For additional information, please refer to http://education.Application Experts.CleanTie/faq/ZAC407 (This link is being provided for informational/ educational purposes only.) Performed By: #### 1 7306, 905, 58721, 718, 83508, 622, 68401, 496 #### [facility] [address], [address] [place] [phone] Legal Job Titles: Matt Beasley MD US carotid doppler BIon 02- US carotid doppler [facility] [address] [place] [id number] Ultrasound Report Signed Patient: Yesy Valadez MR#: [id number] 74 : 1940 Acct:[id number] Age/Sex: 81 / F ADM Date: 01/21/22 Loc: RT Room: Type: [facility] Attending Dr: Onel Walters MD [...] Kevon Hickman MD01/22/2022 12:41 PM Dictation Location: [place] [address] Tech: Alissa Arguello Transcribed By: DENIA 01/22/22 124 Dictated By: Kevon Hickman MD 01/22/22 124 Signed By: 01/22/22 1241 Normal [facility] Complete Pulmonary Functiono n 01-21-2022 Complete Pulmonary Function [facility] [place] [address] [place] [address] Pulmonary Function Signed Patient: Yesy Valadez MR#: [id number] 74 : 1940 Acct:[id number] Age/Sex: 81 / F ADM Date: 01/21/22 Loc: RT Room: Type: [facility] Attending Dr: Onel Walters MD Ordering Provider: Onel Walters MD Date of Service: 01/21/22 Accession #: Copies to: MD Onel Alejandro MD HISTORY: This is an 81-year-old, 60-inch [...] of 1.17 L or 83% predicted. The KQU44-78% was supranormal at 2.15 L/sec or 214% predicted with this all likely related to the inadequate duration of exhalation. After a 350% longer duration of exhalation on the postbronchodilator effort, the forced vital capacity did improve by 25% to 1.47 L or 76% predicted. There is actually a 14% decline in the FEV1 and a 60% decline in the FUD85-15%. LUNG VOLUMES: Lung volumes by plethysmography indicate [...] MD 01/21/22 1240 Signed By: 01/22/22 1347 Normal [facility] CREATININE BLOODon 2 Creatinine [Mass/Vol] 1.04 mg/dL Normal 0.60-1.20 [facility] Comment on above: Order Comment: No: D o not add to previous draw Performed By: #### 2 5656 #### [facility] [address] [place] [address], [facility] eGFR- non- 50 ml/min/1.73sq m Abnormal >60 [facility] Comment on above: Order Comment: No: D o not add to previous draw Result Comment: Calc ulation may not be valid for patients over 70 years Performed By: #### 2 5656 #### [facility] [address] [place] [address], [facility] GFR/1.73 sq M.predicted among blacks MDRD (S/P/Bld) [Vol rate/Area] mL/min/{1.73_m2} Normal >60 [facility] Comment on above: Order Comment: No: D o not add to previous draw Result Comment: Calc ulation may not be valid for patients over 70 years Performed By: #### 2 5656 #### [facility] [address] Cardiovascular Lab Reporton 01-17-2022 Cardiovascular Lab Report [facility] Patient Name: Yesy Rodriguez [facility] MR #: [id number] Physician: Onel De of Vil[facility] Walters Medicine Service Date: 01/16/2022 Division of Birthdate: 1940 Cardiology Room #: [id number] Adult Cardiovascular Services [facility] [address] [place] [address] Cardiovascular Laboratory Report INDICATION: The patient is [...] enlarged. She is now brought to the medical lab tech instructor for cardiac catheterization. PROCEDURES: 1. Right heart catheterization. 2. Left heart catheterization. 3. Mitral valve study. 4. Aortic valve study. 5. Bilateral selective coronary angiography. 6. Limited right common femoral angiography. 7. Access into the right common femoral artery and vein under ultrasound guidance. METHODS: Procedure was explained to the patient with risks and benefits. She signed consent. She was brought to medical lab tech instructor in a fasting state. The right groin area was prepped and draped in usual fashion. Micropuncture technique was used for access in the right common femoral artery. Inner cannula angiography was performed followed by upsizing to a 4-English x 11 cm sheath. Access was obtained using same technique in the right common femoral vein and a 6-English x 11 cm sheath was placed. A 6-English Orosco catheter was used for heart catheterization with measurement pressures and calculation of cardiac output using the estimated ROSE MARIE method. A 4-English JR4 diagnostic catheter was advanced to the [...] selective coronary angiography was then performed using 4-English JL4 and JR4 diagnostic catheters. Catheters were [...] 3. Moderately elevated right-sided filling pressures. 4. [id number]-[id number] elevation of the left-sided filling pressures. 5. [...] on (more content not included)... Normal [facility] POC GLUCOSE LABon 01-17-2022 Glucose [Mass/Vol] 109 mg/dL High 70-100 [facility] Comment on above: Performed By: #### 8 5499 #### [facility] [address] BASIC METABOLIC PANELon 01-01 Calcium [Mass/Vol] 9.2 mg/dL Normal 8.6-10.3 [facility] Comment on above: Order Comment: This order is a replacement of the rejected order with accession number [id number]. Performed By: #### 0 0071 #### [facility] [address] Chloride [Moles/Vol] 105 mmol/L Normal 98-107 [facility] Comment on above: Order Comment: This order is a replacement of the rejected order with accession number [id number]. Performed By: #### 0 0071 #### [facility] [address] [place] [address], [facility] CO2 [Moles/Vol] 26 mmol/L Normal 21-31 [facility] Comment on above: Order Comment: This order is a replacement of the rejected order with accession number [id number]. Performed By: #### 0 0071 #### [facility] [address] [place] [address], [facility] Creatinine [Mass/Vol] 1.27 mg/dL High 0.60-1.20 [facility] Comment on above: Order Comment: This order is a replacement of the rejected order with accession number [id number]. Performed By: #### 0 0071 #### [facility] [address] [place] [address], [facility] eGFR- 49 ml/min/1.73sq m Abnormal >60 [facility] Comment on above: Order Comment: This order is a replacement of the rejected order with accession number [id number]. Result Comment: Calc ulation may not be valid for patients over 70 years Performed By: #### 0 0071 #### [facility] [address] [place] [address], [facility] [facility] eGFR- non- 40 ml/min/1.73sq m Abnormal >60 [facility] Comment on above: Order Comment: This order is a replacement of the rejected order with accession number [id number]. Result Comment: Calc ulation may not be valid for patients over 70 years Performed By: #### 0 0071 #### [facility] [address] [place] [address], [place] Glucose [Mass/Vol] 113 mg/dL High 70-100 [facility] Comment on above: Order Comment: This order is a replacement of the rejected order with accession number [id number]. Performed By: #### 0 0071 #### [facility] [address] [place] [address], [facility] Potassium [Moles/Vol] 4.0 mmol/L Normal 3.5-5.1 [facility] Comment on above: Order Comment: This order is a replacement of the rejected order with accession number [id number]. Performed By: #### 0 0071 #### [facility] [address] [place] [address], [facility] Sodium [Moles/Vol] 140 mmol/L Normal 136-145 [facility] Comment on above: Order Comment: This order is a replacement of the rejected order with accession number [id number]. Performed By: #### 0 0071 #### [facility] [address] [place] [address], [place] Urea nitrogen [Mass/Vol] 48 mg/dL High 7-25 The [facility] Comment on above: Order Comment: This order is a replacement of the rejected order with accession number [id number]. Performed By: #### 0 0071 #### [facility] [address] [place] [id number], [facility] Calcium [Mass/Vol] 9.3 mg/dL Normal 8.6-10.3 [facility] Comment on above: Performed By: #### 0 0071 #### [facility] [address] [place] [id number], [facility] Chloride [Moles/Vol] 106 mmol/L Normal 98-107 [facility] Comment on above: Performed By: #### 0 0071 #### [facility] [address] [place] [id number], [facility] CO2 [Moles/Vol] 27 mmol/L Normal 21-31 [facility] Comment on above: Performed By: #### 0 0071 #### [facility] [address] [place] [id number], [facility] Creatinine [Mass/Vol] 1.47 mg/dL High 0.60-1.20 [facility] Comment on above: Performed By: #### 0 0071 #### [facility] [address] [place] [address], [facility] eGFR- 41 ml/min/1.73sq m Abnormal >60 [facility] Comment on above: Result Comment: Calc ulation may not be valid for patients over 70 years Performed By: #### 0 0071 #### [facility] [address] [place] [address], [facility] eGFR- non- 34 ml/min/1.73sq m Abnormal >60 [facility] Comment on above: Result Comment: Calc ulation may not be valid for patients over 70 years Performed By: #### 0 0071 #### [facility] [address] [place] [address], [facility] Glucose [Mass/Vol] 107 mg/dL High 70-100 [facility] Comment on above: Performed By: #### 0 0071 #### [facility] [address] [place] [address], [facility] Potassium [Moles/Vol] 4.5 mmol/L Normal 3.5-5.1 [facility] Comment on above: Performed By: #### 0 0071 #### [facility] [address] [place] [address], [facility] Sodium [Moles/Vol] 141 mmol/L Normal 136-145 [facility] Comment on above: Performed By: #### 0 0071 #### [facility] [address] [place] [address], [facility] Urea nitrogen [Mass/Vol] 51 mg/dL High 7-25 [facility] Comment on above: Performed By: #### 0 0071 #### [facility] [address] [facility] [place] [address], [facility] CBC COMPLETE BLOOD COUNTon 0 - Erythrocyte distribution width (RBC) [Ratio] 15.6 % High 11.5-15.0 [facility] Comment on above: Performed By: #### 5 0608 #### [facility] [address] [place] [address], [facility] Hematocrit (Bld) [Volume fraction] 39.3 % Normal 36.0-45.0 [facility] Comment on above: Performed By: #### 5 0608 #### [facility] [address] [place] [address], [facility] Hemoglobin (Bld) [Mass/Vol] 12.2 g/dL Normal 12.0-15.0 [facility] Comment on above: Performed By: #### 5 0608 #### [facility] [address] [facility] [place] [place] [address], [facility] MCH (RBC) [Entitic mass] 28.7 pg Normal 27.0-33.0 [facility] Comment on above: Performed By: #### 5 0608 #### [facility] [address] [facility] [place] [place] [address], [facility] MCHC (RBC) [Mass/Vol] 31.0 g/dL Low 32.0-35.0 [facility] Comment on above: Performed By: #### 5 0608 #### [facility] [address] [facility]. [address] MCV (RBC) [Entitic vol] 92.5 fL Normal 82.0-98.0 [facility] Comment on above: Performed By: #### 5 0608 #### [facility] [address] Nucleated RBC/100 WBC (Bld) [Ratio] 0 % Normal 0-0 [facility] Comment on above: Performed By: #### 5 0608 #### [facility] [address] [facility] [place] [address], [facility] PLAT CNT 278 10*3/uL Normal 150-400 [facility] Comment on above: Performed By: #### 5 0608 #### [facility] [address] [facility] [place] [place] [address], [facility] RBC (Bld) [#/Vol] 4.25 10*6/uL Normal 3.80-5.00 [facility] Comment on above: Performed By: #### 5 0608 #### [facility] [address] [place] [address], [facility] WBC (Bld) [#/Vol] 8.68 10*3/uL Normal 4.00-10.60 The [facility] Comment on above: Performed By: #### 5 0608 #### [facility] [address] [place] [address], [facility] BASIC METABOLIC PANELon 12-01 Calcium [Mass/Vol] 10.2 mg/dL Normal 8.6-10.4 [facility] Comment on above: Order Comment: FASTI NG:YESFASTING: YES Performed By: #### 1 0165, 867 #### [facility] [address], [address] [place] [address] Legal Job Titles: Matt Beasley MD Chloride [Moles/Vol] 100 mmol/L Normal 98-110 [facility] Comment on above: Order Comment: FASTI NG:YESFASTING: YES Performed By: #### 1 016, 867 #### [facility] [address], [address] [place] [address] Legal Job Titles: Matt Beasley MD CO2 [Moles/Vol] 28 mmol/L Normal 20-32 [facility] Comment on above: Order Comment: FASTI NG:YESFASTING: YES Performed By: #### 1 016, 867 #### [facility] [address], [address] [place] [address] Legal Job Titles: Matt Beasley MD Creatinine [Mass/Vol] 1.54 mg/dL High 0.60-0.[address] [facility] Comment on above: Order Comment: FASTI NG:YESFASTING: YES Result Comment: For patients >49 years of age, the reference limit for Creatinine is approximately 13% higher for people identified as -Filipino. Performed By: #### 1 016, 867 #### [facility] [address], [address] [place] [address] Legal Job Titles: Matt Beasley MD eGFR NON-AFR. CANADIAN 31 mL/min/1.73m2 Low > OR = 60 [facility] Comment on above: Order Comment: FASTI NG:YESFASTING: YES Performed By: #### 1 164, 867 #### [facility] [place] [address] Legal Job Titles: Matt Beasley MD GFR/1.73 sq M.predicted among blacks MDRD (S/P/Bld) [Vol rate/Area] 36 mL/min/{1.73_m2} Low > OR = 60 [facility] Comment on above: Order Comment: FASTI NG:YESFASTING: YES Performed By: #### 1 164, 867 #### [facility] [place] [address] Legal Job Titles: Matt Beasley MD Glucose [Mass/Vol] 119 mg/dL High 65-99 [facility] Comment on above: Order Comment: FASTI NG:YESFASTING: YES Result Comment: Fasting reference interval For someone without known diabetes, a glucose value between 100 and 125 mg/dL is consistent with prediabetes and should be confirmed with a follow-up test. Performed By: #### 1 164, 867 #### [facility] [place] [address] Legal Job Titles: Matt Beasley MD Potassium [Moles/Vol] 4.1 mmol/L Normal 3.5-5.[address] [facility] Comment on above: Order Comment: FASTI NG:YESFASTING: YES Performed By: #### 1 164, 867 #### [facility] [place] [address] Legal Job Titles: Matt Beasley MD Sodium [Moles/Vol] 140 mmol/L Normal 135-146 [facility] Comment on above: Order Comment: FASTI NG:YESFASTING: YES Performed By: #### 1 164, 867 #### [facility] [place] [address] Legal Job Titles: Matt Beasley MD Urea nitrogen [Mass/Vol] 45 mg/dL High 7-25 [facility] Comment on above: Order Comment: FASTI NG:YESFASTING: YES Performed By: #### 1 164, 867 #### [facility] [place] [address] Legal Job Titles: Matt Beasley MD Urea nitrogen/Creatinine [Mass ratio] 29 mg/mg High 6-22 [facility] Comment on above: Order Comment: FASTI NG:YESFASTING: YES Performed By: #### 1 164, 867 #### [facility] [place] [address] Legal Job Titles: Matt Beasley MD BASIC METABOLIC PANELon 11-2 Calcium [Mass/Vol] 10.1 mg/dL Normal 8.6-10.4 [facility] Comment on above: Performed By: #### 1 164, 867 #### [facility] [place] [address] Legal Job Titles: Matt Beasley MD Chloride [Moles/Vol] 103 mmol/L Normal 98-110 [facility] Comment on above: Performed By: #### 1 164, 867 #### [facility] [place] [address] Legal Job Titles: Matt Beasley MD CO2 [Moles/Vol] 28 mmol/L Normal 20-32 [facility] Comment on above: Performed By: #### 1 164, 867 #### [facility] [place] [address] Legal Job Titles: Matt Beasley MD Creatinine [Mass/Vol] 1.29 mg/dL High 0.60-0.[address] [facility] [address] [facility] Comment on above: Result Comment: For patients >49 years of age, the reference limit for Creatinine is approximately 13% higher for people identified as -Filipino. Performed By: #### 1 164, 867 #### [facility] [place] [address] Legal Job Titles: Matt Beasley MD eGFR NON-AFR. CANADIAN 38 mL/min/1.73m2 Low > OR = 60 [facility] Comment on above: Performed By: #### 1 164, 867 #### [facility] [place] [address] Legal Job Titles: Matt Beasley MD GFR/1.73 sq M.predicted among blacks MDRD (S/P/Bld) [Vol rate/Area] 44 mL/min/{1.73_m2} Low > OR = 60 [facility] Comment on above: Performed By: #### 1 164, 867 #### [facility] [place] [address] Legal Job Titles: Matt Beasley MD Glucose [Mass/Vol] 107 mg/dL High 65-99 [facility] Comment on above: Result Comment: Fasting reference interval For someone without known diabetes, a glucose value between 100 and 125 mg/dL is consistent with prediabetes and should be confirmed with a follow-up test. Performed By: #### 1 164, 867 #### [facility] [place] [address] Legal Job Titles: Matt Beasley MD Potassium [Moles/Vol] 4.1 mmol/L Normal 3.5-5.[address] [facility] Comment on above: Performed By: #### 1 164, 867 #### [facility] [place] [address] Legal Job Titles: Matt Beasley MD Sodium [Moles/Vol] 139 mmol/L Normal 135-146 [facility] Comment on above: Performed By: #### 1 164, 867 #### [facility] [place] [address] Legal Job Titles: Matt Beasley MD Urea nitrogen [Mass/Vol] 30 mg/dL High 7-25 [facility] Comment on above: Performed By: #### 1 016, 867 #### [facility] [place] [id number] Legal Job Titles: Matt Beasely MD Urea nitrogen/Creatinine [Mass ratio] 23 mg/mg High - [facility] Comment on above: Performed By: #### 1 0165, 867 #### [facility] [address], [address] [place] [address] Legal Job Titles: Matt Beasley MD T4 (THYROXINE), TOTALon 10-02 T4 [Mass/Vol] 7.8 ug/dL Normal 5.1-11.9 [facility] Comment on above: Performed By: #### 1 0165, 867 #### [facility] [address], [address] [place] [address] Legal Job Titles: Matt Beasley MD TSHon 10-23-2021 TSH Qn 7.48 m[IU]/L High 0.40-4.50 [facility] Comment on above: Performed By: #### 1 0165, 867 #### [facility] of [address], [address] [place] [address] Legal Job Titles: Matt Beasley MD [place] 125on 09-26-2021 [place] 125 26 U/mL Normal <38 [facility] Comment on above: Performed By: #### C A125 #### [employer] [address] [place] [address] [employer] Operator: Andrew Blakely MD [place] 125Ordered By: Anabel Babb on on 09-26-2021 CA 125 26 U/mL <38 [facility] Work Phone: [employer] Work Phone: Microscopic UrinalysisOrdere d By: Anabel Cuevas on 09-26-2021 - [employer] Work Phone: Amorphous, UA NOT REPORTED None [employer] [facility] Work Phone: Bacteria, UA NOT REPORTED None [facility] Work Phone: Casts UA NOT REPORTED [employer] Work Phone: Crystals, UA NOT REPORTED None /HPF [facility] Work Phone: Epithelial Cells UA 0 TO 2 [facility] [employer] Work Phone: Mucus, UA NOT REPORTED None [facility] [employer] Work Phone: Other Observations UA NOT REPORTED NOT REQ. M [facility] [employer] Work Phone: RBC, UA 2 TO 5 [facility] [employer] Work Phone: Comment on above: Reference range defi margarita for non-centrifuged specimen. Renal Epithelial, UA NOT REPORTED 0 /HPF [facility] Work Phone: Trichomonas, UA NOT REPORTED None [facility] Work Phone: WBC, UA 0 TO 2 [facility] [employer] Work Phone: Yeast, UA NOT REPORTED None [facility] Work Phone: [facility] Work Phone: UA w/Reflex Cultureon 2020 Bilirubin, SemiQt,Ur Negative Normal NEG [facility] Comment on above: Performed By: #### U CALVIN SAPP #### [facility] [employer] [address] [place] [address] [phone] [employer]: Andrew Blakely MD Blood, Urine Negative Normal NEG [facility] Comment on above: Performed By: #### U AXCALVIN #### [facility] [address] [place] [address] [phone] [employer]: Andrew Blakely MD Clarity (U) Clear Normal CLEAR [facility] Comment on above: Performed By: #### U CALVIN SAPP #### [facility] [employer] [address] [place] [address] [phone] [employer]: Andrew Blakely MD Color (U) Yellow Normal YEL [facility] Comment on above: Performed By: #### U AXCALVIN #### [address] [address] [employer] Operator: Andrew Blakely MD Glucose Ql (U) Negative Normal NEG [facility] Comment on above: Performed By: #### U AX, UMICAO #### [address] [address] [employer] Operator: Andrew Blakely MD Ketones Ql (U) Negative Normal NEG [facility] Comment on above: Performed By: #### U AX, UMICAO #### [address] [address] [employer]: Andrew Blakely MD Leukocyte esterase Test strip Ql (U) TRACE Abnormal NEG [facility] Comment on above: Performed By: #### U AX, UMICAO #### [address] [address] [employer] Operator: Andrew Blakely MD Nitrite,Ur Negative Normal NEG [facility] Comment on above: Performed By: #### U AX, UMICAO #### [address] [address] [employer] Operator: Andrew Blakely MD PH,Ur 7.0 Normal 5.0-8.0 [facility] Comment on above: Performed By: #### U AX, UMICAO #### [address] [address] [employer] Operator: Andrew Blakely MD Protein Ql (U) Negative Normal NEG [facility] Comment on above: Performed By: #### U AX, UMICAO #### [facility] [employer] [address] [place] [address] [employer]: Andrew Blakely MD Spec. Success,Ur 1.015 Normal 1.005-1.030 [facility] Comment on above: Performed By: #### U AX, UMICAO #### [facility] [address] [place] [address] [employer] Operator: Andrew Blakely MD Urobilinogen,Ur Normal Normal NORM [facility] Comment on above: Performed By: #### U AX, UMICAO #### [facility] [address] [place], [place] [phone] [employer]: Andrew Blakely MD Comment NOT REPORTED Normal [facility] Comment on above: Performed By: #### U AX, UMICAO #### [facility] [address] [place], [place] [phone] [employer] Operator: Andrew Blakely MD Urinalysis Reflex to Culture Ordered By: Anabel Cuevas on 09-26-2021 Bilirubin Urine Negative NEGATIVE [facility] Work Phone: Color, UA Yellow Yellow [facility] [employer] Work Phone: Glucose, Ur Negative NEGATIVE [facility] [employer] Work Phone: Interpretation and review of laboratory results Abnormal [facility] [employer] Work Phone: Ketones Ql (U) Negative NEGATIVE [facility] Work Phone: Leukocyte esterase Test strip Ql (U) TRACE Abnormal NEGATIVE [facility] [employer] Work Phone: Nitrite, Urine Negative NEGATIVE [facility] Work Phone: pH, UA 7.0 [facility] [employer] Work Phone: Protein, UA Negative NEGATIVE [facility] [employer] Work Phone: Specific Success, UA 1.015 [facility] Work Phone: Turbidity UA Clear Clear [facility] [employer] Work Phone: Urinalysis Comments NOT REPORTED [facility] [employer] Work Phone: Urine Hgb Negative NEGATIVE [facility] [employer] Work Phone: Urobilinogen, Urine Normal Normal [facility] Work Phone: [facility] [employer] Work Phone: Urinalysis,Microon 1 ----- Normal [facility] Comment on above: Performed By: #### U AX, UMICAO #### [address] [address] [employer]: Andrew Blakely MD Epithelial cells LM Ql (Urine sed) 0 TO 2 Normal 0-5 [facility] Comment on above: Performed By: #### U AX, UMICAO #### [address] [address] [employer] Operator: Andrew Blakely MD Urine RBC's 2 TO 5 Normal 0-4 [facility] Comment on above: Result Comment: Refe rence range defined for non-centrifuged specimen. Performed By: #### U AX, UMICAO #### [address] [address] [employer] Operator: Andrew Blakely MD Urine WBC's 0 TO 2 Normal 0-5 [facility] Comment on above: Performed By: #### U AX, UMICAO #### [address] [address] [employer] Operator: Andrew Blakely MD Amorphous sediment LM Ql (Urine sed) NOT REPORTED Normal NONE [facility] Comment on above: Performed By: #### U AX, UMICAO #### [address] [address] [employer] Operator: Andrew Blakely MD Bacteria NOT REPORTED Normal NONE [facility] Comment on above: Performed By: #### U AX, UMICAO #### [address] [address] [employer] Operator: Andrew Blakely MD Casts NOT REPORTED Normal 0-8 [facility] Comment on above: Performed By: #### U AX, UMICAO #### [facility] [address] [place] [address] [employer] Operator: Andrew Blakely MD Crystals LM Nom (Urine sed) NOT REPORTED Normal NONE [facility] Comment on above: Performed By: #### U AX, UMICAO #### [facility] [address] [place] [address] [employer] Operator: Andrew Blakely MD Epithelial, Renal NOT REPORTED Normal 0 [facility] Comment on above: Performed By: #### U AX, UMICAO #### [facility] [employer] [address] [place] [address] [employer] Operator: Andrew Blakely MD Mucus Strands NOT REPORTED Normal NONE [facility] Comment on above: Performed By: #### U AX, UMICAO #### [facility] [employer] [address] [place] [address] [employer] Operator: Andrew Blakely MD Other Observations NOT REPORTED Normal NREQ [facility] Comment on above: Performed By: #### U AX, UMICAO #### [facility] [employer] [address] [place] [address] [employer] Operator: Andrew Blakely MD Trichomonas NOT REPORTED Normal NONE [facility] Comment on above: Performed By: #### U AX, UMICAO #### [facility] [employer] [address] [place] [address] [employer] Operator: Andrew Blakely MD Yeast NOT REPORTED Normal NONE [facility] Comment on above: Performed By: #### U AX, UMICAO #### [facility] [employer] [address] [place] [address] [employer] Operator: Andrew Blakely MD COMPREHENSIVE METABOLIC PANE [facility] 07-27-2021 Albumin [Mass/Vol] 4.4 g/dL Normal 3.6-5.1 [facility] Comment on above: Performed By: #### 1 3229, 737 #### [facility] of [address], [address] [place] [address] Legal Job Titles: Matt Beasley MD Albumin/Globulin [Mass ratio] 1.8 {ratio} Normal 1.0-2.5 [facility] Comment on above: Performed By: #### 1 0165, 867 #### [facility] of [place] [address] Legal Job Titles: Matt Beasley MD ALP [Catalytic activity/Vol] 67 U/L Normal 37-153 [facility] Comment on above: Performed By: #### 1 0165, 867 #### [facility] of [address], [address] [place] [address] Legal Job Titles: Matt Beasley MD ALT [Catalytic activity/Vol] 10 U/L Normal 6-29 [facility] Comment on above: Performed By: #### 1 0165, 867 #### [facility] of [place] [address] Legal Job Titles: Matt Beasley MD AST [Catalytic activity/Vol] 17 U/L Normal 10-35 [facility] Comment on above: Performed By: #### 1 0165, 867 #### [facility] of [place] [address] Legal Job Titles: Matt Beasley MD Bilirubin [Mass/Vol] 0.4 mg/dL Normal 0.2-1.2 [facility] Comment on above: Performed By: #### 1 0165, 867 #### [facility] of [address], [address] [place] [address] Legal Job Titles: Matt Beasley MD Calcium [Mass/Vol] 9.8 mg/dL Normal 8.6-10.4 [facility] Comment on above: Performed By: #### 1 0165, 867 #### [facility] of [place] [address] Legal Job Titles: Matt Beasley MD Chloride [Moles/Vol] 104 mmol/L Normal 98-110 [facility] Comment on above: Performed By: #### 1 016, 867 #### [facility] [place] [address] Legal Job Titles: Matt Beasley MD CO2 [Moles/Vol] 25 mmol/L Normal 20-32 [facility] Comment on above: Performed By: #### 1 016, 867 #### [facility] [place] [address] Legal Job Titles: Matt Beasley MD Creatinine [Mass/Vol] 1.37 mg/dL High 0.60-0.[address] [facility] Comment on above: Result Comment: For patients >49 years of age, the reference limit for Creatinine is approximately 13% higher for people identified as -Filipino. Performed By: #### 1 016, 867 #### [facility] [place] [address] Legal Job Titles: Matt Beasley MD eGFR NON-AFR. CANADIAN 36 mL/min/1.73m2 Low > OR = 60 [facility] Comment on above: Performed By: #### 1 016, 867 #### [facility] [place] [address] Legal Job Titles: Matt Beasley MD GFR/1.73 sq M.predicted among blacks MDRD (S/P/Bld) [Vol rate/Area] 41 mL/min/{1.73_m2} Low > OR = 60 [facility] Comment on above: Performed By: #### 1 016, 867 #### [facility] [place] [address] Legal Job Titles: Matt Beasley MD Globulin (S) [Mass/Vol] 2.5 g/dL Normal 1.9-3.7 [facility] Comment on above: Performed By: #### 1 016, 867 #### [facility] [place] [address] Legal Job Titles: Matt Beasley MD Glucose [Mass/Vol] 97 mg/dL Normal 65-99 [facility] Comment on above: Result Comment: Fasting reference interval Performed By: #### 1 0165, 867 #### [facility] [place] [address] Legal Job Titles: Matt Beasley MD Potassium [Moles/Vol] 5.3 mmol/L Normal 3.5-5.[address] [facility] Comment on above: Performed By: #### 1 0165, 867 #### [facility] [place] [address] Legal Job Titles: Matt Beasley MD Protein [Mass/Vol] 6.9 g/dL Normal 6.1-8.1 [facility] Comment on above: Performed By: #### 1 016, 867 #### [facility] [place] [address] Legal Job Titles: Matt Beasley MD Sodium [Moles/Vol] 137 mmol/L Normal 135-146 [facility] Comment on above: Performed By: #### 1 016, 867 #### [facility] [place] [address] Legal Job Titles: Matt Beasley MD Urea nitrogen [Mass/Vol] 25 mg/dL Normal 7-25 [facility] Comment on above: Performed By: #### 1 0165, 867 #### [facility] [place] [address] Legal Job Titles: Matt Beasley MD Urea nitrogen/Creatinine [Mass ratio] 18 mg/mg Normal 6-22 [facility] Comment on above: Performed By: #### 1 0165, 867 #### [facility] [place] [address] Legal Job Titles: Matt Beasley MD LIPID PANEL, [facility] 07-02 Cholesterol [Mass/Vol] 159 mg/dL Normal <200 [facility] Comment on above: Performed By: #### 1 0165, 867 #### [facility] [address], [address] [place] [address] Legal Job Titles: Matt Beasley MD Cholesterol in HDL [Mass/Vol] 63 mg/dL Normal > OR = 50 [facility] Comment on above: Performed By: #### 1 016, 867 #### [facility] [address], [address] [place] [address] Legal Job Titles: Matt Beasley MD Cholesterol in LDL [Mass/Vol] 73 mg/dL Normal [facility] Comment on above: Result Comment: Refe rence range: <100 Desirable range <100 mg/dL for primary prevention; <70 mg/dL for patients with CHD or diabetic patients with > or = 2 CHD risk factors. LDL-C is now calculated using the Hollis calculation, which is a validated novel method providing better accuracy than the Friedewald equation in the estimation of LDL-C. Sawyer SS et al. TORY. 2013;310(19): 3593-1222 (http://education.Application Experts.CleanTie/faq/ULA018) Performed By: #### 1 016, 867 #### [facility] [address], [address] [place] [address] Legal Job Titles: Matt Beasley MD Cholesterol.total/Cho lesterol in HDL [Mass ratio] 2.5 {ratio} Normal <5.0 [facility] Comment on above: Performed By: #### 1 016, 867 #### [facility] [address], [address] [place] [address] Legal Job Titles: Matt Beasley MD NON HDL CHOLESTEROL 96 mg/dL (calc) Normal <130 [facility] Comment on above: Result Comment: For patients with diabetes plus 1 major ASCVD risk factor, treating to a non-HDL-C goal of <100 mg/dL (LDL-C of <70 mg/dL) is considered a therapeutic option. Performed By: #### 1 016, 867 #### [facility] [address], [address] [place] [address] Legal Job Titles: Matt Beasley MD Triglyceride [Mass/Vol] 156 mg/dL High <150 [facility] Comment on above: Performed By: #### 1 0165, 867 #### [facility] [address], [address] [place] [address] Legal Job Titles: Matt Beasley MD UA w/Reflex Cultureon 2020 Bilirubin, SemiQt,Ur Negative Normal NEG [facility] Comment on above: Performed By: #### U AX, UMICAO #### [facility] [address] [place] [address] [employer] Operator: Andrew Blakely MD Blood, Urine Negative Normal NEG [facility] Comment on above: Performed By: #### U AX, UMICAO #### [facility] [address] [place] [address] [employer] Operator: Andrew Blakely MD Clarity (U) CLEAR Normal CLEAR [facility] Comment on above: Performed By: #### U AX, UMICAO #### [facility] [address] [place] [address] [employer] Operator: Andrew Blakely MD Color (U) YELLOW Normal YEL [facility] Comment on above: Performed By: #### U AX, UMICAO #### [facility] [address] [place] [address]30 [employer] Operator: Andrew Blakely MD Glucose Ql (U) Negative Normal NEG [facility] Comment on above: Performed By: #### U AX, UMICAO #### [facility] [address] [place] [address] [employer] Operator: Andrew Blakely MD Ketones Ql (U) Negative Normal NEG [facility] Comment on above: Performed By: #### U AX, UMICAO #### [facility] [address] [place] [address]753 [employer] Operator: Andrew Blakely MD Leukocyte esterase Test strip Ql (U) MODERATE Abnormal NEG [facility] Comment on above: Performed By: #### U AX, UMICAO #### [facility] [address] [place] [address] [employer] Operator: Andrew Blakely MD Nitrite,Ur Negative Normal NEG [facility] Comment on above: Performed By: #### U AX, UMICAO #### [facility] [address] [place] [address] 01802 [employer] Operator: Andrew Blakely MD PH,Ur 6.5 Normal 5.0-8.0 [facility] Comment on above: Performed By: #### U AX, UMICAO #### [facility] [address] [place] [address] [employer] Operator: Andrew Blakely MD Protein Ql (U) Negative Normal NEG [facility] Comment on above: Performed By: #### U AX, UMICAO #### [address] [address] [employer] Operator: Andrew Blakely MD Spec. Success,Ur 1.006 Normal 1.005-1.030 [facility] Comment on above: Performed By: #### U AX, UMICAO #### [facility] [address] [place] [address] 68677 [employer] Operator: Andrew Blakely MD Urobilinogen,Ur Normal Normal NORM [facility] Comment on above: Performed By: #### U AX, UMICAO #### [facility] [address] [place] [address] 13959 [employer] Operator: Andrew Blakely MD Comment NOT REPORTED Normal [facility] Comment on above: Performed By: #### U AX, UMICAO #### [facility] [address] [place] [address] [employer] Service Operator: Andrew Blakely MD Urinalysis,Microon 1 ----- Normal [facility] Comment on above: Performed By: #### U AX, UMICAO #### [facility] [address] [place] [address] 36076 [employer] Operator: Andrew Blakely MD Bacteria MANY Abnormal NONE [facility] Comment on above: Performed By: #### U AX, UMICAO #### [facility] [employer] [address] [place] [address] 25513 [employer] Operator: Andrew Blakely MD Epithelial cells LM Ql (Urine sed) 0 TO 2 Normal 0-5 [facility] Comment on above: Performed By: #### U AX, UMICAO #### [address] [address] [employer] Operator: Andrew Blakely MD Urine RBC's 0 TO 2 Normal 0-2 [facility] Comment on above: Performed By: #### U AX, UMICAO #### [address] [address] [employer] Operator: Andrew Blakely MD Urine WBC's 2 TO 5 Normal 0-5 [facility] Comment on above: Performed By: #### U AX, UMICAO #### [facility] [employer] [address] [place] [address]197 [employer] Operator: Andrew Blakely MD Amorphous sediment LM Ql (Urine sed) NOT REPORTED Normal NONE [facility] Comment on above: Performed By: #### U AX, UMICAO #### [facility] [address] [place] [address] 20370 [employer] Operator: Andrew Blakely MD Casts NOT REPORTED Normal 0-2 [facility] Comment on above: Performed By: #### U AX, UMICAO #### [facility] [address] [place] [address] 77466 [employer] Operator: Andrew Blakely MD Crystals LM Nom (Urine sed) NOT REPORTED Normal NONE [facility] Comment on above: Performed By: #### U AX, UMICAO #### [facility] [employer] [address] [place] [address] 28298 [employer] Operator: Andrew Blakely MD Epithelial, Renal NOT REPORTED Normal 0 [facility] Comment on above: Performed By: #### U AX, UMICAO #### [facility] [employer] [address] [place] [address] 99721 [employer] Operator: Andrew Blakely MD Mucus Strands NOT REPORTED Normal NONE [facility] Comment on above: Performed By: #### U AX, UMICAO #### [facility] [employer] [address] [place] [address] 42980 [employer] Operator: Andrew Blakely MD Other Observations NOT REPORTED Normal NREQ [facility] Comment on above: Performed By: #### U AX, UMICAO #### [facility] [employer] [address] [place] [address]120 [employer] Operator: Andrew Blakely MD Trichomonas NOT REPORTED Normal NONE [facility] Comment on above: Performed By: #### U AX, UMICAO #### [facility] [employer] [address] [place] [address] 94092 [employer] Service Operator: Andrew Blakely MD Yeast NOT REPORTED Normal NONE [facility] Comment on above: Performed By: #### U AX, UMICAO #### [facility] [employer] [address] [place] [address] 80293 [employer] Operator: Andrew Blakely MD Vital Signs Date Time Vital Sign Value Performing Clinician Facility 07-08-2023 11:00-0400 Body height 149.86 cm Albin Bonner Other [facility] Other 07-08-2023 11:00-0400 Body mass index (BMI) [Ratio] 26.17 kg/m2 Albin Bonner Other [facility] Other 07-08-2023 11:00-0400 Body temperature 96.5 [degF] Aziz Bakhous Other [facility] Other 07-08-2023 11:00-0400 Body weight 58.79 kg Aziz Bakhous Other [facility] Other 07-08-2023 11:00-0400 Diastolic blood pressure 80 mm[Hg] Aziz Bakhous Other [facility] Other 07-08-2023 11:00-0400 Respiratory rate 18 /min Aziz Bakhous Other [facility] Other 07-08-2023 11:00-0400 SaO2% (BldA) [Mass fraction] 96 % Aziz Bakhous Other [facility] Other 07-08-2023 11:00-0400 Systolic blood pressure 140 mm[Hg] Aziz Bakhous Other [facility] Other 01-21-2023 11:20-0500 Body height 149.86 cm Aziz Bakhous Other [facility] Other 01-21-2023 11:20-0500 Body mass index (BMI) [Ratio] 25.85 kg/m2 Aziz Bakhous Other [facility] Other 01-21-2023 11:20-0500 Body weight 58.06 kg Aziz Bakhous Other [facility] Other 01-21-2023 11:20-0500 Diastolic blood pressure 73 mm[Hg] Aziz Bakhous Other [facility] Other 01-21-2023 11:20-0500 Respiratory rate 18 /min Aziz Bakhous Other [facility] Other 01-21-2023 11:20-0500 SaO2% (BldA) [Mass fraction] 98 % Aziz Bakhous Other [facility] Other 01-21-2023 11:20-0500 Systolic blood pressure 121 mm[Hg] Aziz Bakhous Other [facility] Other 09-17-2022 15:40-0400 Body height 149.86 cm Aziz Bakhous Other [facility] Other 09-17-2022 15:40-0400 Body mass index (BMI) [Ratio] 24.6 kg/m2 Aziz Bakhous Other [facility] Other 09-17-2022 15:40-0400 Body temperature 97.1 [degF] Aziz Bakhous Other [facility] Other 09-17-2022 15:40-0400 Body weight 55.25 kg Aziz Bakhous Other [facility] Other 09-17-2022 15:40-0400 Diastolic blood pressure 78 mm[Hg] Aziz Bakhous Other [facility] Other 09-17-2022 15:40-0400 Respiratory rate 18 /min Aziz Bakhous Other [facility] Other 09-17-2022 15:40-0400 SaO2% (BldA) [Mass fraction] 99 % Azjulio Englands Other [facility] Other 09-17-2022 15:40-0400 Systolic blood pressure 140 mm[Hg] Azjulio Erazohous Other [facility] Other 04-23-2022 15:40-0400 Body height 149.86 cm Azjulio Englands Other [facility] Other 04-23-2022 15:40-0400 Body mass index (BMI) [Ratio] 22.94 kg/m2 Albin Erazohous Other [facility] Other 04-23-2022 15:40-0400 Body temperature 96.4 [degF] Albin Englands Other [facility] Other 04-23-2022 15:40-0400 Body weight 51.53 kg Albin Englands Other [facility] Other 04-23-2022 15:40-0400 Diastolic blood pressure 82 mm[Hg] Albin Englands Other [facility] Other 04-23-2022 15:40-0400 Respiratory rate 18 /min Azjulio Bakhous Other [facility] Other 04-23-2022 15:40-0400 SaO2% (BldA) [Mass fraction] 99 % Azjulio Bakhous Other [facility] Other 04-23-2022 15:40-0400 Systolic blood pressure 149 mm[Hg] Aziz Bakhous Other [facility] Other Encounters Encounter Date Encounter Type Care Provider Facility Start: 01-12-2024 Bamboo flowsheet Soraida castro MINE ENGINEERING MANAGER Work Phone: [facility] Start: 01-12-2024 Bamboo flowsheet Soraida castro MINE ENGINEERING MANAGER Work Phone: [facility] Start: 01-12-2024 Patient encounter procedure Soraida Bethea MINE ENGINEERING MANAGER Work Phone: [facility] Start: 01-12-2024 End: 01-12-2024 ambulatory SORAIDA Lopez BETHEA Not Available Start: 01-05-2024 End: 01-05-2024 ambulatory Albin Bonner Other [facility] Other Start: 01-05-2024 Refill Elmira Brown DO Work Phone: [facility] Comment on above: 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, without long-term current use of insulin, unspecified CKD stage ([facility] Start: 01-05-2024 Telephone encounter Albin Bonner [facility] Start: 12-03-2023 End: 12-03-2023 ambulatory SORAIDA RAINESZPATRICK Not Available Start: 11-19-2023 End: 11-19-2023 ambulatory [facility] Start: 09-10-2023 Telephone encounter Azjulio Englands [facility] Start: 09-10-2023 End: 09-10-2023 ambulatory DHEERAJ VENTURA [facility] Other Start: 08-27-2023 End: 08-28-2023 ambulatory EL[facility]IRA Hurley [facility] Start: 07-08-2023 End: 07-08-2023 ambulatory Azjulio Bakroberts Other [facility] Other Start: 07-08-2023 Office outpatient visit 25 minutes Aziz Bakroberts [facility] [place] Start: 05-07-2023 End: 05-07-2023 ambulatory [facility] Start: 04-16-2023 End: 04-16-2023 ambulatory [facility] Start: 03-17-2023 End: 03-18-2023 ambulatory DHEERAJ JACKSON Facility:[facility] Start: 03-12-2023 End: 03-13-2023 ambulatory DHEERAJ JACKSON Facility:[facility] Start: 03-12-2023 End: 03-12-2023 ambulatory [facility] Start: 03-10-2023 End: 03-11-[address] ONEL WALTERS Facility:[facility] Start: 02-05-2023 End: 02-06-[address] DOCTOR ALBRIGHT Facility:[facility] Start: 01-24-2023 End: 01-25-2023 ambulatory [facility] Start: 01-24-2023 End: 01-24-2023 Subsequent hospital visit by physician José Maya MD Work Phone: [facility] Comment on above: History of ovarian c ancer Start: 01-22-2023 End: 01-22-2023 ambulatory Albin Bonner Other [facility] Other Start: 01-22-2023 Telephone encounter Albin Bonner [facility] Start: 01-21-2023 End: 01-21-2023 ambulatory Albin Bonner Other [facility] Other Start: 01-21-2023 Office outpatient visit 25 minutes Albin Bonner [facility] [place] Start: 01-13-2023 End: 01-13-[address] DOCTOR ALBRIGHT Facility:[facility] Start: 01-13-2023 End: 01-14-[address] DOCTOR ALBRIGHT Facility:[facility] Start: 11-08-2022 End: 11-08-[address] ZACHARY WARE Facility:[facility] Start: 09-17-2022 End: 09-17-2022 ambulatory Aziz Bakhous Other [facility] Other Start: 09-17-2022 Office outpatient visit 25 minutes Aziz Bakhous [facility] [place] Start: 09-10-2022 End: 09-11-[address] DOCTOR ALBRIGHT Facility:[facility] Start: 08-21-2022 End: 08-22-2022 ambulatory KATHARINA JOVEL Facility:[facility] Start: 07-10-2022 End: 07-10-2022 Subsequent hospital visit by physician Zachary Ware Work Phone: [facility] Comment on above: 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 Start: 06-05-2022 End: 06-06-[address] ZACHARY WARE Facility:[facility] Start: 05-29-2022 End: 05-30-[address] ZACHARY WARE Facility:[facility] Start: 05-06-2022 End: 05-07-[address] ZACHARY WARE Facility:[facility] Start: 04-23-2022 End: 04-23-2022 ambulatory Albin Englands Other [facility] Other Start: 04-23-2022 Office outpatient ne w 30 minutes Aziz Bakhous [facility] Start: 03-27-2022 End: 03-27-2022 Subsequent hospital visit by physician Zachary Ware Work Phone: [facility] Start: 09-26-2021 End: 09-27-2021 ambulatory ANABEL L [facility] Start: 09-26-2021 End: 09-26-2021 Subsequent hospital visit by physician Zachary Ware Work Phone: [facility] ILDA Carter Comment on above: Borderline epithelia l neoplasm of ovary; Gross hematuria Start: 07-18-2021 End: 07-19-2021 ambulatory ANABEL L [facility] Procedures Date Procedure Procedure Detail Performing Clinician Start: 01-24-2023 Immunoassay tumor an tigen quantitative ca 125 Fide Torres DO Work Phone: Start: 07-10-2022 Immunoassay tumor an tigen quantitative ca 125 Imansa Reyes MONTENEGRO Work Phone: Start: 03-27-2022 Basic metabolic pane [...] Treatment Date Care Activity Detail Author Start: 03-17-2024 End: 03-17-2024 Patient encounter procedure 03/17/2024 1:00 PM EDT Office Visit [facility] [address] [place] [phone] [facility] Start: 01-12-2024 End: 01-12-2024 Patient encounter procedure 01/12/2024 11:00 AM EST Office Visit [facility] [address] [place] [phone] Soradia Bethea NP [address] [place], [place] [id number] Arrived [facility] Comment on above: Arrived Start: 05-08-2023 Hemoglobin A1c measurement Diabetes: Hemoglobin A1C [facility] Start: 01-31-2023 End: 01-31-2023 Patient encounter procedure 01/31/2023 Office Visit Gynecologic Oncology José Warren MD [address] [facility] [address] [place] [address] [facility] Start: 01-05-2023 Creatinine measurement Creatinine [facility] Start: 01-05-2023 Potassium [Moles/volume] in Serum or Plasma Potassium [facility] Start: 08-01-2022 Influenza vaccination M [facility] Start: 07-17-2022 End: 07-17-2022 Patient encounter procedure 07/17/2022 Office Visit Gynecologic Oncology José Warren MD [address] [facility] [address] [place] [id number] [facility] Start: 07-01-2022 Influenza vaccination Flu vaccine (# 1) JOSÉ MIGUEL REA [facility] Start: 01-23-2022 End: 01-23-2022 Patient encounter procedure 01/23/2022 Office Visit Gynecologic Oncology Anabel Cuevas MD [address] [facility] [address] [place] [address] [phone] [facility] Start: 01-02-2022 End: 01-02-2022 Patient encounter procedure 01/02/2022 Office Visit Gynecologic Oncology Anabel Cuevas MD [address] [facility] [address] [place] [id number] [facility] Start: 08-01-2021 Influenza vaccination Flu vaccine (# 1) [facility] [employer] Phone: Start: 06-12-2021 Annual Wellness Visi t (AWV) Annual Wellness Visit (AWV) [facility] Start: 09-01-2009 Pneumococcal Vaccine : 65+ Years (2 - PCV) Pneumococcal Vaccine: 65+ Years (2 - PCV) [facility] Start: 2003 Pneumococcal 65+ yea rs Vaccine (1 of 1 - PPSV23) Pneumococcal 65+ years Vaccine (1 of 1 - PPSV23) [facility] [employer] Phone: Start: 1993 Screening for osteoporosis DEXA (modify frequency per FRAX score) [facility] Start: 1988 Shingles Vaccine (1 of 2) Shingles Vaccine (1 of 2) [facility] Start: 1957 DTaP/Tdap/Td vaccine (1 - Tdap) DTaP/Tdap/Td vaccine (1 - Tdap) [facility] Start: 1950 COVID-19 Vaccine (1) COVID-19 Vaccin e (1) [facility] Phone: Start: 1950 Depression Screen Depression Screen [facility] Start: 1948 Glaucoma screening Diabetes: R etinopathy Screening [facility] Start: 1948 Lipid panel [facility] Start: 1944 Pneumococcal 65+ yea rs Vaccine (1 - PCV) Pneumococcal 65+ years Vaccine (1 - PCV) [facility] Start: 1943 COVID-19 Vaccine (1) COVID-19 Vaccin e (1) [facility] Start: 1938 COVID-19 Vaccine (#1) COVID-19 Vacci ne (#1) [facility] [employer] Start: 1938 Annual Wellness Visi t (AWV) Annual Wellness Visit (AWV) [facility] Start: 1938 Creatinine measurement [facility] Start: 1938 Medicare Annual Wellness (AWV) Medicare Annual Wellness (AWV) [facility] Start: 1938 Potassium monitoring Potassium monit oring [facility] [employer] Phone: Immunizations Immunization Date Immunization Notes Care Provider Juventino carballo 09-15-2023 Influenza, Seasonal, Quadrivalent, Adjuvanted Soraida Bethea MINE ENGINEERING MANAGER Work Phone: [facility] 01-13-2023 diphtheria, tetanus toxoids and pertussis vaccine Elmira Stephanie DO Work Phone: [facility] 09-02-2022 Influenza, High-dose Seasonal, Quadrivalent, Preservative Free Elmira Stephanie DO Work Phone: [facility] 10-18-2021 Moderna SARS-CoV-2 Vaccination Elmira Stephanie DO Work Phone: [facility] Work Phone: 06-11-2021 tetanus toxoid, redu lety diphtheria toxoid, and acellular pertussis vaccine, adsorbed Soraida Bethea MINE ENGINEERING MANAGER Work Phone: [facility] 02-01-2021 Moderna SARS-CoV-2 Vaccination Elmira Stephanie DO Work Phone: [facility] 01-04-2021 Moderna SARS-CoV-2 Vaccination Elmira Stephanie DO Work Phone: [facility] 11-21-2020 Influenza, High-dose Seasonal, Quadrivalent, Preservative Free Soraida Bethea MINE ENGINEERING MANAGER Work Phone: [facility] 09-01-2008 pneumococcal polysaccharide vaccine, 23 valent Soraida Bethea MINE ENGINEERING MANAGER Work Phone: [facility] Payers Date Payer Category Payer Medicare [employer] MEDICARE ADVANTAGE [employer] MEDICARE [id number] 2021-Present [address] [address] [place] [address] [id number] 2000 Medicare MEDICARE MEDICAR E PART A AND B [id number] 2000-Present [phone] [address] [address] [place] [address] [id number] 1959 Medicare [id number] 1938 Unknown [id number] 2.16.840.1.951583.3.579.2.175 1938 Unknown [id number] 2.16.840.1.030171.3.579.2.175 1938 Unknown [id number] 2.16.840.1.356349.3.579.2.593 1938 Unknown [id number] 2.16.840.1.248064.3.579.2.593 1938 Unknown [id number] 2.16.840.1.501908.3.579.2.593 1938 Unknown [id number] 2.16.840.1.104432.3.579.2.593 1938 Unknown [id number] 2.16.840.1.899797.3.579.2.593 1938 Unknown [id number] 2.16.840.1.224971.3.579.2.593 1938 Unknown [id number] 2.16.840.1.254668.3.579.2.593 1938 Unknown [id number] 2.16.840.1.900305.3.579.2.593 1938 Unknown [id number] 2.16.840.1.228979.3.579.2.593 1938 Unknown [id number] 2.16.840.1.765038.3.579.2.593 1938 Unknown [id number] 2.16.840.1.088158.3.579.2.593 1938 Unknown [id number] 2.16.840.1.340073.3.579.2.593 1938 Unknown [id number] 2.16.840.1.430308.3.579.2.593 1938 Unknown [id number] 2.16.840.1.579067.3.579.2.593 1938 Unknown [id number] 2.16.840.1.553484.3.579.2.173 1938 Unknown [id number] 2.16.840.1.653319.3.579.2.173 1938 Unknown [id number] 2.16.840.1.757705.3.579.2.125 9 1938 Unknown [id number] 2.16.840.1.030945.3.579.2.125 9 Social History Date Type Detail Facility Start: 09-26-2021 End: 04-20-2023 Tobacco smoking status NHIS Never smoker [facility] Phone: Start: 09-26-2021 End: 04-20-2023 Tobacco use and exposure Never used [facility] Start: 1940 Sex Assigned At Not on file [facility] Phone: Exposure to SARS-CoV-2 (event) Not sure [facility] Start: 09-08-2023 Sex Assigned At [facility] Other Start: 12-03-2023 Alcohol intake Current drinke r of alcohol (finding) [facility] Start: 09-08-2023 History of Social function [facility] Start: 05-10-2023 Alcohol Comment caffeine intak e: none [facility] NEGATED: Highlighted rowStart: NINF History of tobacco use Passive smoker [facility] Equipment Procedure Code Equipment Code Equipment Origin al Text Equipment Identifier Dates Check fasting glucose once daily [id number] Start: 08-20-2023 Inject 1 Lancet under the skin in the morning. [id number] Start: 08-20-2023 Clinical Notes 04-23-2022 to 01-05-2024 Note Date & Type Note Facility 01-05-2024 Evaluation note Encounter Date Diagnosis Assessment Notes Jan, Primary hypertension (ICD-10 - I10) [facility] Other [id number] [facility] Subjective Yesy Rodriguez is a 83 y.o. year old female patient being seen for 2 mo follow up aortic valve stenosis, chronic diastolic heart failure, persistent afib, and CAD. She had echo 10/08/2023. Had some sharp left-sided chest pain a few days ago, which lasted for a few seconds. Niece says she gets very SOB after walking. Had 1 episode of hematuria since last visit in Aug 2023. Says she gets this from time to time. Denies palpitations, lightheadedness/syncope. 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 She is here to establish care and to proceed with work-up of her valvular heart disease and diastolic heart failure. She is an 81-year-old woman who moved from [place] in May 2021. She is known to [...] then discharged. She was evaluated at the [facility] cardiology service and she was planned to undergo further assessment by ERIK and cardiac catheterization. She has moved care to our practice due to insurance purposes. Blood testing 11/30/2021: BUN 28, creatinine 1.18, GFR 44, potassium 4.2. Blood testing 11/17/2021: Hematocrit 29.6, hemoglobin 9.8, platelets 223, BMP 915, potassium 3.7, BUN 34, creatinine 1.42. Troponin [address] angiogram of the chest 10/16/2021: No evidence of filling defects in the pulmonary circulation. Jean Carlos calcifications noted. Echocardiogram 08/30/2021: LV systolic function is 60-65%, concentric hypertrophy without segmental wall motion abnormalities, aortic valvular disease including severe stenosis with mild regurgitation, mitral valvular disease with moderate stenosis and moderate regurgitation, tricuspid regurgitation moderate, mild to moderate pulmonary hypertension Visit of 02/11/2022: After last visit I proceeded with cardiac catheterization on 01/16/2022. This showed moderate three-vessel coronary disease, severe pulmonary hypertension, moderately elevated right-sided filling pressures, moderate to severe elevation of left-sided filling pressures, preserved cardiac output and cardiac index, moderate to severe mitral valve stenosis and moderate aortic valve stenosis. ERIK 01/16/2022: LV systolic function is normal, EF 55%, normal RV systolic function. Moderate mitral regurgitation and moderate mitral valve stenosis, mild aortic valve regurgitation moderate aortic valve stenosis. She was started on Eliquis 2.5 mg twice daily due to atrial fibrillation noted on ECG the day of the cardiac catheterization and on prior ECGs. Today she reports that she has been doing well. No significant shortness of breath. No significant lower extremity edema. No palpitations. No chest pain. BMP 01/16/2022: BUN 48, creatinine 1.27, potassium 4.0. Creatinine 01/17/2022: 1.04. Carotid duplex ultrasound 01/21/2022: No hemodynamically significant stenosis of either extracranial internal carotid arteries. Vertebrals are patent with antegrade flow. PFTs 01/21/2022: No significant obstruction with minimal restriction. Diffusion capacity is mildly reduced. ECG 01/16/2022: Atrial fibrillation, left anterior fascicular block. Cardiac catheterization 01/16/2022: 1. Moderate 3-vessel coronary artery disease with 50% mid LAD, 40% proximal circumflex and 40% mid RCA stenosis. 2. Severe pulmonary hypertension. 3. Moderately elevated right-sided filling pressures. 4. Codlwkde-bg-uuljyr elevation of the left-sided filling pressures. 5. Preserved cardiac output and cardiac index. 6. Moderate to severe mitral valve stenosis. 7. Moderate aortic valve stenosis. Visit of 09/06/2022: She is seen in follow-up. Recently she was seen in the office and an echocardiogram was ordered. There is suggested possibly severe aort (more content not included)...[facility]10-11-2023 NoteCardiovascular Medicine [place] [facility] SUBJECTIVE Chief Complaint Patient presents with Congestive Heart Failure Shortness of Breath Yesy Rodriguez is a 83 y.o. female here for follow-up. HPI Last HPI per Dr. Walters: Visit of 12/28/2021: Yesy is seen as a new patient. She is here to establish care and to proceed with work-up of her valvular heart disease and diastolic heart failure. She is an 81-year-old woman who moved from [place] in May 2021. She is known to [...] then discharged. She was evaluated at the [facility] cardiology service and she was planned [...] then to her calves. Is now resolved. [place] like a muscle cramp. Was worse with walking. Denies any accompanied warmth or redness. Also, since last seen she was seen at [facility] ER with c/o fall, she feel backwards [...] gain, CP, dyspnea, orthopnea, PND, palpitations, dizziness/LH. 09/10/2023 She c/o worsening SOB along with leg swelling and weight gain. She is up about 4 lbs per her scale at home since last seen a few months ago. Her SOB has been worsening over the last couple of weeks. She reports she is watching her salt and fluid intake. She follows with home health clinical liaison Dr. Bonner [facility] - [phone] Patient Active Problem List Diagnosis Chronic diastolic [...] Past Medical History: Diagnosis Date Abnormal ECG Arrhythm (more content not included)...[facility] 09-10-2023 NotePatient here c/o LE edema, weight gain, and [...] pain. All other systems reviewed and are negative.[facility] 07-08-2023 Evaluation note* Encounter Date Diagnosis Assessment Notes Treatment Notes Treatment Clinical Notes Jul, Chronic kidney disease, stage IV [...] and she follows with cardiology clinic in [place] Jul, Diabetes type 2, no ocular involvement [...] - R31.9) follows with urology clinic in [facility] [place] Other 06-07-2023 NotePatient here for 3 week follow up. [...] pain. All other systems reviewed and are negative.[facility] 05-07-2023 NoteCardiovascular Medicine [place] [facility] SUBJECTIVE Chief Complaint Patient presents with Congestive Heart Failure Yesy Rodriguez is a 82 y.o. female here for follow-up. HPI Last HPI per Dr. Walters: Visit of 12/28/2021: Yesy is seen as a new patient. She is here to establish care and to proceed with work-up of her valvular heart disease and diastolic heart failure. She is an 81-year-old woman who moved from [place] in May 2021. She is known to [...] then discharged. She was evaluated at the [facility] cardiology service and she was planned [...] then to her calves. Is now resolved. [place] like a muscle cramp. Was worse with walking. Denies any accompanied warmth or redness. Also, since last seen she was seen at [facility] ER with c/o fall, she feel backwards [...] Cigarettes Smokeless tobacco: Never (more content not included)...[facility]05-17-2023 NotePatient is here today for a one month follow up Review of Systems Constitutional: Positive for weight gain. Cardiovascular: Positive for leg swelling. Skin: Positive for rash. Musculoskeletal: Positive for back pain and joint pain. All other systems reviewed and are negative.[facility] 04-16-2023 NoteCardiovascular Medicine [place] [facility] SUBJECTIVE Chief Complaint Patient presents with [...] is an 81-year-old woman who moved from [place] in May 2021. She is known to [...] then discharged. She was evaluated at the [facility] cardiology service and she was planned [...] then to her calves. Is now resolved. [place] like a muscle cramp. Was worse with walking. Denies any accompanied warmth or redness. Also, since last seen she was seen at [facility] ER with c/o fall, she feel backwards [...] syncope. OBJECTIVE Visit Vitals (more content not included)...[facility]04-12-2023 Note Cardiovascular Medicine [place] [facility] SUBJECTIVE Chief Complaint Patient presents with [...] is an 81-year-old woman who moved from [place] in May 2021. She is known to [...] then discharged. She was evaluated at the [facility] cardiology service and she was planned [...] then to her calves. Is now resolved. Clinton like a muscle cramp. Was worse with walking. Denies any accompanied warmth or redness. Also, since last seen she was seen at [facility] ER with c/o fall, she feel backwards [...] every day by oral (more content not included)...[facility]04-12-2023 NoteYesy is here today to follow up [...] pain in L>R calf. 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 Patient said her diabetes well controlled. She is only [place] patient follows with her PCP for blood [...] given handout of high K food at [employer]. 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 Patient said her diabetes well controlled. She is only [place] patient follows with her PCP for blood glucose control Aug, Vitamin D deficiency (ICD-10 - E55.9) Patient is taking vitamin D supplement. PTH, 25-hydroxy vitamin D and calcium are within normal limit. Aug, Hyperuricemia (ICD-10 - E79.0) Uric acid slightly high at 7.5. I will continue to monitor uric acid. 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 Patient said her diabetes well controlled. 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 documented in this encounter [employer] Phone: evaluation note* Diagnosis History of ovarian cancer Personal history of malignant neoplasm of ovary documented in this encounter [employer] Phone: evaluation noteNo InformationNortEncompass [facility] [place] Other Evaluation note* Diagnosis Type 2 diabetes mellitus with chronic kidney disease, without long-term current use of insulin, unspecified CKD stage (CMS/HCC) documented in this encounter [facility] Narrative - Reported* Type Description Date [...] REMOVAL OF OVARIES Hospitalization History SEE ABOVE [place] [facility] Other Summary Purpose Family History No Family [...] section and content) DATE CREATED AUTHOR 09/27/2021 [facility] DATE CREATED AUTHOR AUTHOR'S ORGANIZ ATION 01/22/2022 [facility] DATE CREATED AUTHOR AUTHOR'S ORGANIZ ATION 02/18/2022 [facility] DATE CREATED AUTHOR AUTHOR'S ORGANIZ ATION 06/11/2022 [facility] DATE CREATED AUTHOR AUTHOR'S ORGANIZ ATION 10/14/2022 [facility] dical Specialist DATE CREATED AUTHOR AUTHOR'S ORGANIZ ATION 03/20/2023 [facility] [place] [facility] DATE CREATED AUTHOR AUTHOR'S ORGANIZ ATION 09/04/2023 [facility] DATE CREATED AUTHOR AUTHOR'S ORGANIZ ATION 11/20/2023 [facility] DATE CREATED AUTHOR AUTHOR'S ORGANIZ ATION 01/13/2024 [facility] dical Specialists [employer] Care Teams (unrecognized sec tion and content) [employer] Slicer Relationship Specialty Start [place] [address] PCP - General Family Medicine 09/26/21 [employer] Relationship Specialty [place] [address] [place] [address] PCP - General Gynecological Oncology 07/17/22 [employer] Slicer Relationship Specialty Start Date End Date Elmira Brown DO [address] [place] [address] PCP - [employer] 05/31/21 Elmira Brown DO [address] [place] [address] PCP - General Family Medicine 04/09/23 [employer] Slicer Relationship Specialty Start Date End Date Elmira Brown DO [address] [place] [address] PCP - [employer] 05/31/21 Lexy Mei MD [address] [place] [address] PCP - General Family Medicine 01/12/24 Soraida Bethea NP [address] [place] [address] Nurse Practitioner Family Medicine 01/12/24 REASON FOR VISIT (unrecogniz ed section and content) Reason Comments Med Refill FOR RECORDS PERTAINING TO PATIENTS WHO ARE [...] BE BASED ON THE PRIMARY CLINICAL RECORDS. [facility]. provides no warranty or guarantee of the accuracy or completeness of information in this document.
[2024-02-23 15:09] LABS: BUN Creatinine Ratio 33.5; Calcium 9.7 mg/dL (8.5-10.1); Carbon Dioxide 28.1 mmol/L (21.0-32.0); Chloride 100 mmol/L (98-107); Estimated GFR (African America 30 (>=60); Estimated GFR (Non-African Ame 25 (>=60); Glucose 123 mg/dL (74-106); Potassium 4.1 mmol/L (3.5-5.1); Sodium 139 mmol/L (136-145)
== END 2024-02-23 12:21 | disposition home or self-care (01) ==
LOC: LAB 12:22
PROVIDERS: Visit Provider Internal Medicine Interventional Cardiology
DX: I10 Essential (primary) hypertension (principal)
CPT/HCPCS: 36415; 80048

== ENCOUNTER 2024-05-03 12:44 | Outpatient (OUT) | payer MEDICARE, SELFPAY ==
--- NOTE | 2024-05-03 13:00 | CA_ITS ---
Patient Name: MABLE CHAPPELL MR#: [id number] : 1940 Exam Date: 05/03/2024 Ordering Doctor: DR ONEL WALTERS M.D. ECHOCARDIOGRAM REPORT PROCEDURE: CA ECHO DOPPLER COMPLETE INDICATIONS: MR, AoV and MV stenosis COMPARISON: None. DESCRIPTION: COMPLETE ECHOCARDIOGRAM Real-time transthoracic echocardiography with 2D, M-mode, spectral and color flow Doppler performed. QUALITY: Technical quality was good. 58 , 125#, BP 134/68 LEFT VENTRICLE: Normal chamber size. Thickened septal wall. LV EF: Global left ventricular systolic function is normal; estimated ejection fraction is 55 to 60%. No significant wall motion abnormalities. DIASTOLIC: Not adequately assessed due to heart rhythm. E/E' suggests volume overload. ATRIAL SEPTUM: Visually appears intact. LEFT ATRIUM: Severe dilatation. RIGHT ATRIUM: Mild dilatation. RIGHT VENTRICLE: Normal chamber size. Normal right ventricular systolic function. TRICUSPID VALVE: Normal mobility and thickness. Mild to moderate regurgitation. No evidence of pulmonary hypertension. RVSP 29 mmHg MITRAL VALVE: Moderately thickened with decreased mobility. Mild mitral valve stenosis. There is no mitral annular calcification. Moderate to severe mitral regurgitation. AORTIC VALVE: Normal trileaflet appearance. Severely calcified aortic valve. Doppler velocity suggests mild to moderate aortic valve stenosis. DVI 0.3 is consistent with moderate stenosis. Mild aortic regurgitation. AORTIC ROOT: Normal diameter and appearance. Aortic arch is normal in size. PULMONIC VALVE: Not well visualized. No stenosis. No regurgitation. PERICARDIUM: No evidence of pericardial effusion. IVC: Collapses with inspirations. IVC is normal in size. CONCLUSION: 1. Global left ventricular systolic function is normal; estimated ejection fraction is 55 to 60% 2. Normal right ventricular size and systolic function 3. Biatrial enlargement 4. Mild to moderate tricuspid regurgitation 5. Moderate to severe mitral regurgitation 6. Mild to moderate aortic valve stenosis; DVI 0.3 is consistent with moderate stenosis 7. Mild aortic valve regurgitation Adult Echocardiography Procedure Report Left Ventricle LVEDD (3.7 - 5.6 cm): 3.86 cm LVESD (2.2 - 4.0 cm): 3.00 cm LVIVS thickness (0.6 - 1.2 cm): 1.06 cm LVPW thickness (0.5 - 1.0 cm): 0.90 cm e': 0.06 m/s E - e': 25.06 LVOT Max Gradient: 2.69 mm[Hg] LVOT Area (cm2): 0.82 m/s Peak Velocity (LVOT): 0.82 m/s Mean Velocity (LVOT): 0.54 m/s LVOT Diameter 1.82 cm Left Atrium LA Volume Index (2D A2C): 64.71 ml/m2 Left Atrium Systolic Dimension: 4.66 cm Mitral Valve MV E to A Ratio: 2.57 Mitral Valve A-Wave Peak Velocity: 0.60 m/s Mitral Valve E-Wave Peak Velocity: 1.54 m/s Right Ventricle Aorta AO Root Diam: 2.68 cm Aortic Valve AoV Area (Peak Crescencio): 0.88 cm2, 0.90 cm2 AoV Area (VTI): 0.85 cm2, 0.87 cm2 Peak Velocity(Antegrade Flow): 2.38 m/s, 2.48 m/s Peak Gradient(Antegrade Flow): 22.70 mm[Hg], 24.65 mm[Hg] Mean Velocity(Antegrade Flow): 1.82 m/s, 1.56 m/s Mean Gradient(Antegrade Flow): 14.48 mm[Hg], 11.93 mm[Hg] Velocity Time Integral: 61.51 cm, 65.24 cm Tricuspid Valve Peak Velocity (Regurgitant Flow): 2.55 m/s Pulmonic Valve Peak Velocity: 1.01 m/s Peak Gradient: 5.56 mm[Hg], 2.82 mm[Hg] Right Atrium Right Atrium Systolic Pressure: 54.59 ml, 54.59 ml Dictated by: Roshan Caruso M.D. on 05/05/2024 at 14:08 Approved by: Roshan Caruso M.D. on 05/05/2024 at 14:15
--- OUTSIDE RECORDS SUMMARY | 2024-05-03 13:07 | XMS_ITS | CCD ---
Author Organization [facility] Care Team Providers Care Staff Command And Control Officer Name Role Phone Zachary Ware Primary Care Provider ANABEL CUEVAS Referring Unavailable ANABEL CUEVAS Referring Unavailable ZACHARY WARE Primary Care Unavailable Albin Bonner Unavailable Zachary Ware Primary Care Provider Kelvin Maya MD, [place] Primary Care Provider [place], DR ZACHARY Bermudez Primary Care Unavailable FURLONG, DR ZACHARY Bermudez Consulting Unavailable FURLONG, DR ZACHARY Bermudez Attending Unavailable FURLONG, DR ZACHARY Bermudez Admitting Unavailable GARBER, DR CHARIS Maya Consulting Unavailable MISC, DR [...] FURLONG, DR ZACHARY Bermudez Primary Care Unavailable DHEERAJ WHITEHEAD Admitting Unavailable DHEERAJ WHITEHEAD Consulting Unavailable DHEERAJ WHITEHEAD Attending Unavailable FURLONG, DR ZACHARY Bermudez Primary Care Unavailable MOUKARBEL, DR SYKES Consulting Unavailable MOUKARBEL, DR SYKES Attending Unavailable MOUKARBEL, DR SYKES Admitting Unavailable DHEERAJ WHITEHEAD Admitting Unavailable ELA GASPAR Consulting Unavailable MISC, DR DENNISON Primary Care Unavailable DHEERAJ WHITEHEAD Attending Unavailable DHEERAJ WHITEHEAD Consulting Unavailable FURLONG, DR ZACHARY Bermudez Primary Care Unavailable PAY ., DR GARCIA Attending Unavailable PAY ., DR GARCIA Admitting Unavailable PAY ., DR GARCIA Consulting Unavailable MISC, DR DENNISON Primary Care Unavailable HAY ., DR JOHANSEN Attending Unavailable HAY ., DR JOHANSEN Admitting Unavailable HAY ., DR JOHANSEN Consulting Unavailable MAYORAUL Consulting Unavailable VENTURAAUREA KUMARIA Admitting Unavailable MISC, DR DENNISON Primary Care Unavailable MISC, DR DENNISON Consulting Unavailable DHEERAJ WHITEHEAD Attending Unavailable VENTURADHEERAJ KUMARI Consulting Unavailable MOUKARBEL, DR SYKES Consulting Unavailable [...] FURLONG, DR ZACHARY Bermudez Primary Care Unavailable Fredy DO, [place] G Unavailable Fredy MATHEWS [place] G Primary Care Provider Lexy Mei MD Primary Care Provider Soraida Bethea NP Unavailable KOLEDA, IMAN Referring Unavailable FREDY, ELMIRA Primary Care Unavailable FREDY, ELMIRA Primary Care Unavailable KOLEDA, IMAN Referring Unavailable DHEERAJ WHITEHEAD Attending Unavailable DHEERAJ WHITEHEAD Attending Unavailable DHEERAJ WHITEHEAD Attending Unavailable MOUKAONEL CABA Attending Unavailable DHEERAJ WHITEHEAD Attending Unavailable SORAIDA BETHEA Attending Unavailab ROCHELLE Adams Attending Unavailable ROCHELLE ONEIL Referring Unavailable Medications Current Medications Medication Drug Class(es) [...] daily 0 07/07/2021 Active sodium zirconium cyclosilicate 54673 mg powder for oral suspension (5 sources) [...] of unspecified ovary] Onset: 12-28-2021 04-09-2023 Chronic Cancer of ovary (1 source) History of malignant neoplasm of ovary; Translations: [Personal history of malignant neoplasm of ovary] Episodic Cardiac dysrhythmias (4 sources) Permanent atrial fibrillation; [...] disease (2 sources) Atherosclerotic heart disease of [place] coronary artery without angina pectoris; Translations: [Atherosclerotic heart disease of [place] coronary artery without angina pectoris] Onset: 04-16-2023 [...] Mixed hyperlipidemia; Translations: [Mixed hyperlipidemia] Onset: 12-28-2021 04-09-2023 Chronic E Codes: Fall (1 source) Fall [...] 01-15-2023 Chronic Other aftercare (1 source) 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; Translations: [OTH ASSISTED CURRENT DRUG THERAPY] Onset: 01-15-2023 Episodic Other aftercare (1 source) 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 Results obtained with different assay methods cannot be used interchangeably. Performed By: #### C A125 #### [facility] [address] [place] [address] Psychiatrist: Andrew Blakely MD 36on 02-25-2024 36 Regarding BMP from 02/23/2024: MD Dona Anderson MA Please have her reduce furosemide from 40 mg twice daily to 40 mg in the morning and 20 mg in the afternoon. Get a BMP in 1 month. Spoke with patient's niece and made her aware. BMP order faxed to [facility]. She verbalized understanding to have repeat BMP in 1 month after furosemide reduction. [facility] Office Visiton 11-19-2023 Follow-up visit [id number] Mary Rodriguez Lucila 1940 F Date Provider Department Center 11/19/2023 ONEL JONES [facility] Family History Problem Relation Age of Onset Heart attack Mother Heart attack Brother Family Status - Relation Status Age at Mother Brother Level of Service:98725 CT OFFICE/OUTPATIENT ESTABLISHED MOD MDM 30 MIN [facility] 36on 09-19-2023 36 Yes, okay to take both. They are different classes of mediation. The dose of Jardiance is for her heart failure. She will need to continue to monitor her blood sugar at home and let PCP or us know if they start running low. Thanks [facility] 36on 09-15-2023 36 Please send Rx for farxiga 10mg daily to her pharmacy. If this is not covered by insurance then we can try Jardiance 10mg daily instead. F/U as scheduled. Thanks! Normal [facility] BI MAMMOGRAM SCREENING TOMOS JUNIE BILATERALon 09-15-2023 BI MAMMOGRAM SCREENING TOMOSYNTHESIS BILATERAL [...] IS VERY IMPORTANT TO YOUR HEALTH. THE [employer] GUIDELINES RECOMMEND THAT WOMEN 40 [...] Not Available Office Visiton 09-10-2023 Follow-up visit [id number] Mary Rodriguez 1940 F Date Provider Department Center 09/10/2023 DHEERAJ CARNEY [facility] Family History Problem Relation Age of Onset Heart attack Mother Heart attack Brother Family Status - Relation Status Age at Mother Brother Level of Service:19114 CT OFFICE/OUTPATIENT ESTABLISHED MOD MDM 30-39 MIN Reason for Visit and Comments: Congestive Heart Failure [127] Shortness of Breath [836252] Normal [facility] 36on 09-09-2023 36 I see she has an robson t with me tomorrow for SOB, leg swelling, weight gain. Please have her increase her lasix to 40mg BID. Thank you [facility] CA 125on 08-27-2023 CA 125 9 U/mL Normal <38 [facility] Comment on above: Result Comment: The Jorje ECLIA assay is used. Results obtained with different assay methods cannot be used interchangeably. Performed By: #### C A125 #### [facility] [address] [id number] Psychiatrist: Andrew Blakely MD 37on 05-07-2023 37 *Continue taking las ix 40mg twice daily. *Continue monitoring your weight daily. If you noticed 2-3 lbs weight gain in a day or 5 lbs in a week then take an extra tablet of lasix for 2-3 days until weight comes back down. Let us know if weight continues to increase despite extra doses of lasix. [facility] Office Visiton 05-07-2023 Follow-up visit [id number] Mary Rodriguez 1940 F Date Provider Department Center 05/07/2023 DHEERAJ CARNEY Family History Problem Relation Age of Onset Heart attack Mother Heart attack Brother Family Status - Relation Status Age at Mother Brother Level of Service:10979 CT OFFICE/OUTPATIENT ESTABLISHED LOW MDM 20-29 MIN Reason for Visit and Comments: Congestive Heart Failure [127] [facility] 36on 04-24-2023 36 Please let patient/niece know that her labs show her kidney function has improved. Continue lasix 40mg BID. Follow-up in 4-6 weeks. Thanks [facility] Telephoneon 04-24-2023 Telephone [id number] Mary Rodriguez 1940 F Date Provider Department Center 04/24/2023 DHEERAJ CARNEY Family History Problem Relation Age of Onset Heart attack Mother Heart attack Brother Family Status - Relation Status Age at Mother Brother [facility] Office Visiton 04-16-2023 Follow-up visit [id number] Mary Rodriguez 1940 Date Provider Department Center 04/16/2023 DHEERAJ CARNEY Family History Problem Relation Age of Onset Heart attack Mother Heart attack Brother Family Status - Relation Status Age at Mother Brother Level of Service:75027 CT OFFICE/OUTPATIENT ESTABLISHED MOD MDM 30-39 MIN Reason for Visit and Comments: Follow-up [145050] - 1 month follow up [facility] 36on 03-26-2023 36 Please let her/her niece know that her leg ultrasound showed no blood clots. Her labs from 03/17 show her kidney function worsened slightly. Would like for her to go back to taking lasix 40mg daily and monitor her weight daily. How has she been feeling and what have her weights been? Normal [facility] Telephoneon 03-26-2023 Telephone [id number] Mary Rodriguez 1940 F Date Provider Department Center 03/26/2023 DHEERAJ CARNEY [facility] Family History Problem Relation Age of Onset Heart attack Mother Heart attack Brother Family Status - Relation Status Age at Mother Brother [facility] PROF CHEM 8 (BAS METB)on Anion gap [Moles/Vol] 13.7 mmol/L Normal [facility] Comment on above: Performed By: #### C MP, URIC #### [facility] [address] [place] [address] Dr. Hussein Camacho Calcium [Mass/Vol] 9.7 mg/dL Normal 8.5-10.1 [facility] Comment on above: Performed By: #### C MP, URIC #### [facility] [address] [address] [address] Hussein Camacho Chloride [Moles/Vol] 100 mmol/L Normal 98-107 [facility] Comment on above: Performed By: #### C MP, URIC #### [facility] [address] [address] [address] Hussein Camacho CO2 [Moles/Vol] 29.9 mmol/L Normal 21.0-32.0 [facility] Comment on above: Performed By: #### C MP, URIC #### [facility] [address] [address] [address] Hussein Camacho Creatinine [Mass/Vol] 1.87 mg/dL Critically high 0.55-1.02 [facility] Comment on above: Performed By: #### C MP, URIC #### [facility] [address] [address] [address] Hussein Camacho EGFR-AF MACED[place]IAN 31 mL/min/1.73m2 Critically low >=60 [facility] Comment on above: Performed By: #### C MP, URIC #### [facility] [address] [address] [address] Hussein Camacho EGFR-NON AF MACED[place]IAN 26 mL/min/1.73m2 Critically low >=60 [facility] Comment on above: Performed By: #### C MP, URIC #### [facility] [address] [place] [address] Dr. Hussein Camacho Glucose [Mass/Vol] 146 mg/dL Critically high 74-106 [facility] Comment on above: Performed By: #### C MP, URIC #### [facility] [address] [address] [address] Hussein Camacho Potassium [Moles/Vol] 4.6 mmol/L Normal 3.5-5.1 [facility] Comment on above: Performed By: #### C MP, URIC #### [facility] [address] [address] [address] Hussein Camacho Sodium [Moles/Vol] 139 mmol/L Normal 136-145 [facility] Comment on above: Performed By: #### C MP, URIC #### [facility] [address] [address] [address] Hussein Camacho Urea nitrogen [Mass/Vol] 67.0 mg/dL Critically high 7.0-18.0 [facility] Comment on above: Performed By: #### C MP, URIC #### [facility] [address] [address] [address] Hussein Camacho Urea nitrogen/Creatinine [Mass ratio] 35.8 mg/mg Normal [facility] Comment on above: Performed By: #### C MP, URIC #### [facility] [address] [place], [place] [address] Dr. Hussein Camacho US TRANG DOP LEG [...] by: ELA GASPAR Date: 2023-03-17 17:00 Normal [facility] BNPon 03-12-2023 Natriuretic peptide B (Bld) [Mass/Vol] 3283.0 pg/mL Critically high <=1,800.0 [facility] Comment on above: Performed By: #### C MP, URIC #### [facility] [address] [address] [address] Hussein Camacho D-DIMERon 03-12-2023 D-DIMER 1.34 mg/L FEU Critically high <=0.59 [facility] Comment on above: Performed By: #### C MP, URIC #### [facility] [address] [address] [address] Hussein Camacho D-DIMER COMMENTS SEE BELOW Normal [facility] Comment on above: Result Comment: Incr [...] Performed By: #### C MP, URIC #### [facility] [address] [address] [address] Hussein Camacho Office Visiton 03-12-2023 Follow-up visit [id number] Mary Rodriguez 1940 F Date Provider Department Center 03/12/2023 DHEERAJ CARNEY CARD [facility] Family History Problem Relation Age of Onset Heart attack Mother Heart attack Brother Family Status - Relation Status Age at Mother Brother Level of Service:92933 CT OFFICE/OUTPATIENT ESTABLISHED MOD MDM 30-39 MIN Reason for Visit and Comments: Follow-up [012836] Edema [[id number]] Shortness of Breath [396021] Normal [facility] PROF CHEM 8 (BAS METB)on Anion gap [Moles/Vol] 12.4 mmol/L Normal [facility] Comment on above: Performed By: #### C MP, URIC #### [facility] [address] [place] [address] Dr. Hussein Camacho Calcium [Mass/Vol] 9.6 mg/dL Normal 8.5-10.1 [facility] Comment on above: Performed By: #### C MP, URIC #### [facility] [address] [address] [address] Hussein Camacho Chloride [Moles/Vol] 104 mmol/L Normal 98-107 [facility] Comment on above: Performed By: #### C MP, URIC #### [facility] [address] [address] [address] Hussein Camacho CO2 [Moles/Vol] 29.6 mmol/L Normal 21.0-32.0 [facility] Comment on above: Performed By: #### C MP, URIC #### [facility] [address] [address] [address] Hussein Camacho Creatinine [Mass/Vol] 1.55 mg/dL Critically high 0.55-1.02 [facility] Comment on above: Performed By: #### C MP, URIC #### [facility] [address] [place] [address] Dr. Hussein Camacho EGFR-AF MACEDONIAN 39 mL/min/1.73m2 Critically low >=60 [facility] Comment on above: Performed By: #### C MP, URIC #### [facility] [address] [place] [address] Dr. Hussein Camacho EGFR-NON AF MACEDONIAN 32 mL/min/1.73m2 Critically low >=60 [facility] Comment on above: Performed By: #### C MP, URIC #### [facility] [address] [address] [address] Hussein Camacho Glucose [Mass/Vol] 128 mg/dL Critically high 74-106 [facility] Comment on above: Performed By: #### C MP, URIC #### [facility] [address] [address] [address] Hussein Camacho Potassium [Moles/Vol] 3.9 mmol/L Normal 3.5-5.1 [facility] Comment on above: Performed By: #### C MP, URIC #### [facility] [address] [address] [address] Hussein Camacho Sodium [Moles/Vol] 142 mmol/L Normal 136-145 [facility] Comment on above: Performed By: #### C MP, URIC #### [facility] [address] [address] [address] Hussein Camacho Urea nitrogen [Mass/Vol] 49.0 mg/dL Critically high 7.0-18.0 [facility] Comment on above: Performed By: #### C MP, URIC #### [facility] [address] [place] [address] Dr. Hussein Camacho Urea nitrogen/Creatinine [Mass ratio] 31.6 mg/mg Normal [facility] Comment on above: Performed By: #### C MP, URIC #### [facility] [address] [place] [address] Dr. Hussein Camacho ECHOCARDIO M/2D COMPLETEon 0 03-10-2023 ECHOCARDIO M/2D COMPLETE Patient Name Site Name YESY RODRIGUEZ [facility] Account No Medical Record Number Age Sex Date Time [id number] [facility]:[id number] F 03/10/2023 14:44 At the Request [...] Area (VTI): 0.61 cm2, 0.62 cm2 Deceleration Coal: 1.84 m/s2 Pressure Half-Time: 571.86 ms Peak [...] Walters M.D. on 03/10/2023 at 17:00 Normal [facility] GLYCOHEMOGLOBIN A1Con 2022 ADA RECOMMENDATION SEE BELOW Normal [facility] Comment on above: Result Comment: ADA RECOMMENDED LIMIT 4.0 - 6.0 ADA THERAPEUTIC TARGET < 7.0 ACTION SUGGESTED > 7.0 Performed By: #### A 1C #### [facility] [address] [place] [address] Dr. Hussein Camacho Glucose [Mass/Vol] 154 mg/dL Normal [facility] Comment on above: Performed By: #### A 1C #### [facility] [address] [place] [address] Dr. Hussein Camacho HbA1c (Bld) [Mass fraction] 7.0 % Critically high 4.5-6.2 [facility] Comment on above: Performed By: #### A 1C #### [facility] [address] [place] [address] Dr. Hussein Camacho PROF CHEM 8 (BAS METB)on Anion gap [Moles/Vol] 8.3 mmol/L Normal [facility] Comment on above: Performed By: #### C MP, URIC #### [facility] [address] [place] [address] Dr. Hussein Camacho Calcium [Mass/Vol] 9.1 mg/dL Normal 8.5-10.1 [facility] Comment on above: Performed By: #### C MP, URIC #### [facility] [address] [place] [address] Dr. Hussein Camacho Chloride [Moles/Vol] 106 mmol/L Normal 98-107 [facility] Comment on above: Performed By: #### C MP, URIC #### [facility] [address] [place] [address] Dr. Hussein Camacho CO2 [Moles/Vol] 28.2 mmol/L Normal 21.0-32.0 [facility] Comment on above: Performed By: #### C MP, URIC #### [facility] [address] [place] [address] Dr. Hussein Camacho Creatinine [Mass/Vol] 1.04 mg/dL Critically high 0.55-1.02 [facility] Comment on above: Performed By: #### C MP, URIC #### [facility] [address] [place] [address] Dr. Hussein Camacho EGFR-AF MACEDONIAN >60 Normal >=60 [facility] Comment on above: Performed By: #### C MP, URIC #### [facility] [address] [place] [address] Dr. Hussein Camacho EGFR-NON AF MACEDONIAN 50 mL/min/1.73m2 Critically low >=60 [facility] Comment on above: Performed By: #### C MP, URIC #### [facility] [address] [address] [address] Hussein Camacho Glucose [Mass/Vol] 122 mg/dL Critically high 74-106 [facility] Comment on above: Performed By: #### C MP, URIC #### [facility] [address] [address] [address] Hussein Camacho Potassium [Moles/Vol] 4.5 mmol/L Normal 3.5-5.1 [facility] Comment on above: Performed By: #### C MP, URIC #### [facility] [address] [place] [address] Dr. Hussein Camacho Sodium [Moles/Vol] 138 mmol/L Normal 136-145 [facility] Comment on above: Performed By: #### C MP, URIC #### [facility] [address] [place] [address] Dr. Hussein Camacho Urea nitrogen [Mass/Vol] 33.0 mg/dL Critically high 7.0-18.0 [facility] Comment on above: Performed By: #### C MP, URIC #### [facility] [address] [place] [address] Dr. Hussein Camacho Urea nitrogen/Creatinine [Mass ratio] 31.7 mg/mg Normal [facility] Comment on above: Performed By: #### C MP, URIC #### [facility] [address] [place] [address] Dr. Hussein Camacho [place] 125on 01-24-2023 Cancer Ag 125 Qn 9 [arb'U]/mL NINF - 38 U/mL [facility] Comment on above: The Jorje ECLIA as say is used. Results obtained with different assay methods cannot be used interchangeable. [facility] CT HEAD WO CONon 01-13-2023 CT HEAD [...] SKYLER MEYER Date: 2023-01-13 13:33 Normal [facility] PROF 14(COMP METB)on 023 Albumin [Mass/Vol] 4.3 g/dL Normal 3.4-5.0 [facility] Comment on above: Performed By: #### C MP #### [facility] [address] [place] [address] Dr. Hussein Camacho Albumin/Globulin [Mass ratio] 1.2 {ratio} Normal [facility] Comment on above: Performed By: #### C MP #### [facility] [address] [place] [address] Dr. Hussein Camacho ALP [Catalytic activity/Vol] 96 U/L Normal 46-116 [facility] Comment on above: Performed By: #### C MP #### [facility] [address] [place] [address] Dr. Hussein Camacho ALT [Catalytic activity/Vol] 43 U/L Normal 14-59 [facility] Comment on above: Performed By: #### C MP #### [facility] [address] [place] [address] Dr. Hussein Camacho Anion gap [Moles/Vol] 13.2 mmol/L Normal [facility] Comment on above: Performed By: #### C MP #### [facility] [address] [place] [address] Dr. Hussein Camacho AST [Catalytic activity/Vol] 30 U/L Normal 15-37 [facility] Comment on above: Performed By: #### C MP #### [facility] [address] [address] [address] Hussein Camacho Bilirubin [Mass/Vol] 0.7 mg/dL Normal 0.2-1.0 [facility] Comment on above: Performed By: #### C MP #### [facility] [address] [address] [address] Hussein Camacho Calcium [Mass/Vol] 9.7 mg/dL Normal 8.5-10.1 [facility] Comment on above: Performed By: #### C MP #### [facility] [address] [address] [address] Hussein Camacho Chloride [Moles/Vol] 105 mmol/L Normal 98-107 [facility] Comment on above: Performed By: #### C MP #### [facility] [address] [address] [address] Hussein Camacho CO2 [Moles/Vol] 28.5 mmol/L Normal 21.0-32.0 [facility] Comment on above: Performed By: #### C MP #### [facility] [address] [address] [address] Hussein Camacho Creatinine [Mass/Vol] 1.48 mg/dL Critically high 0.55-1.02 [facility] Comment on above: Performed By: #### C MP #### [facility] [address] [address] [address] Hussein Camacho EGFR-AF MACEDONIAN 41 mL/min/1.73m2 Critically low >=60 [facility] Comment on above: Performed By: #### C MP #### [facility] [address] [address] [address] Hussein Caamcho EGFR-NON AF MACEDONIAN 34 mL/min/1.73m2 Critically low >=60 [facility] Comment on above: Performed By: #### C MP #### [facility] [address] [address] [address] Hussein Camacho Globulin (S) [Mass/Vol] 3.6 g/dL Normal [facility] Comment on above: Performed By: #### C MP #### [facility] [address] [address] [address] Hussein Camacho Glucose [Mass/Vol] 140 mg/dL Critically high 74-106 [facility] Comment on above: Performed By: #### C MP #### [facility] [address] [address] [address] Hussein Camacho Potassium [Moles/Vol] 5.7 mmol/L Critically high 3.5-5.1 [facility] Comment on above: Performed By: #### C MP #### [facility] [address] [address] [address] Hussein Camacho Protein [Mass/Vol] 7.9 g/dL Normal 6.4-8.2 [facility] Comment on above: Performed By: #### C MP #### [facility] [address] [address] [address] Hussein Camacho Sodium [Moles/Vol] 141 mmol/L Normal 136-145 [facility] Comment on above: Performed By: #### C MP #### [facility] [address] [address] [address] Hussein Camacho Urea nitrogen [Mass/Vol] 42.0 mg/dL Critically high 7.0-18.0 [facility] Comment on above: Performed By: #### C MP #### [facility] [address] [address] [address] Hussein Camacho Urea nitrogen/Creatinine [Mass ratio] 28.4 mg/mg Normal [facility] Comment on above: Performed By: #### C MP #### [facility] [address] [address] [address] Hussein Camacho MRI Shoulder w/o Lefton [...] by Boaz Weeks on 10/14/2022 1541 Normal [facility] PTH INTACTon 09-12-2022 PTH, Intact 46 pg/mL Normal 15-65 [facility] Comment on above: Performed By: #### P THINT #### [facility] [address] [place] [address] Dr. Hussein Camacho CBC AUTO DIFFon 09-10-2022 BASO # 0.1 103/ul Normal 0.0-0.1 [facility] Comment on above: Performed By: #### C BC #### [facility] [address] [place] [address] Dr. Hussein Camacho Basophils/100 WBC (Bld) 0.8 % Normal 0.2-2.0 [facility] Comment on above: Performed By: #### C BC #### [facility] [address] [place] [address] Dr. Hussein Camacho EO # 0.3 103/ul Normal 0.0-0.7 [facility] Comment on above: Performed By: #### C BC #### [facility] [address] [place] [address] Dr. Hussein Camacho Eosinophils/100 WBC (Bld) 3.3 % Normal 0.9-7.0 [facility] Comment on above: Performed By: #### C BC #### [facility] [address] [place] [address] Dr. Hussein Camacho Erythrocyte distribution width (RBC) [Ratio] 13.6 % Normal 11.0-15.0 [facility] Comment on above: Performed By: #### C BC #### [facility] [address] [place] [address] Dr. Hussein Camacho Hematocrit (Bld) [Volume fraction] 41.5 % Normal 36.0-48.0 [facility] Comment on above: Performed By: #### C BC #### [facility] [address] [place] [address] Dr. Hussein Camacho Hemoglobin (Bld) [Mass/Vol] 13.5 g/dL Normal 12.0-16.0 [facility] Comment on above: Performed By: #### C BC #### [facility] [address] [place] [address] Dr. Hussein Camacho IG # 0.03 10e3/ul Normal 0.00-0.03 [facility] Comment on above: Performed By: #### C BC #### [facility] [address] [place] [address] Dr. Hussein Camacho IG % 0.3 % Normal 0.0-0.5 [facility] Comment on above: Performed By: #### C BC #### [facility] [address] [place] [address] Dr. Hussein Camacho LYMPH # 1.3 103/ul Normal 1.2-3.8 [facility] Comment on above: Performed By: #### C BC #### [facility] [address] [place] [address] Dr. Hussein Camacho Lymphocytes/100 WBC (Bld) 12.7 % Critically low 20.5-60.0 [facility] Comment on above: Performed By: #### C BC #### [facility] [address] [place] [address] Dr. Hussein Camacho MANUAL DIFF REQ NO Normal [facility] Comment on above: Performed By: #### C BC #### [facility] [address] [place] [address] Dr. Hussein Camacho MCH (RBC) [Entitic mass] 31.4 pg Normal 26.7-34.0 [facility] Comment on above: Performed By: #### C BC #### [facility] [address] [place] [address] Dr. Hussein Camacho MCHC (RBC) [Mass/Vol] 32.5 g/dL Normal 29.9-35.2 [facility] Comment on above: Performed By: #### C BC #### [facility] [address] [place] [address] Dr. Hussein Camacho MCV (RBC) [Entitic vol] 96.5 fL Normal 81.0-99.0 [facility] Comment on above: Performed By: #### C BC #### [facility] [address] [place] [address] Dr. Hussein Camacho MONO # 0.9 103/ul Critically high 0.3-0.8 [facility] Comment on above: Performed By: #### C BC #### [facility] [address] [place] [address] Dr. Hussein Camacho Monocytes/100 WBC (Bld) 9.0 % Normal 1.7-12.0 [facility] Comment on above: Performed By: #### C BC #### [facility] [address] [place] [address] Dr. Hussein Camacho NEUT # 7.5 103/ul Critically high 1.4-6.5 [facility] Comment on above: Performed By: #### C BC #### [facility] [address] [place] [address] Dr. Hussein Camacho Neutrophils/100 WBC (Bld) 73.9 % Normal 43.0-75.0 [facility] Comment on above: Performed By: #### C BC #### [facility] [address] [place] [address] Dr. Hussein Camacho Platelet mean volume (Bld) [Entitic vol] 10.6 fL Normal 9.5-13.5 [facility] Comment on above: Performed By: #### C BC #### [facility] [address] [place] [address] Dr. Hussein Camacho PLT 287 103/ul Normal 150-450 [facility] Comment on above: Performed By: #### C BC #### [facility] [address] [place] [address] Dr. Hussein Camacho RBC 4.30 106/ul Normal 4.20-5.40 [facility] Comment on above: Performed By: #### C BC #### [facility] [address] [place] [address] Dr. Hussein Camacho WBC 10.2 103/ul Normal 4.0-11.0 [facility] Comment on above: Performed By: #### C BC #### [facility] [address] [place] [address] Dr. Hussein Camacho PROF 14(COMP METB)on 022 Albumin [Mass/Vol] 4.3 g/dL Normal 3.4-5.0 [facility] Comment on above: Performed By: #### C MP, URIC #### [facility] [address] [place] [address] Dr. Hussein Camacho Albumin/Globulin [Mass ratio] 1.1 {ratio} Normal [facility] Comment on above: Performed By: #### C MP, URIC #### [facility] [address] [place] [address] Dr. Hussein Camacho ALP [Catalytic activity/Vol] 102 U/L Normal 46-116 [facility] Comment on above: Performed By: #### C MP, URIC #### [facility] [address] [place] [address] Dr. Hussein Camacho ALT [Catalytic activity/Vol] 47 U/L Normal 14-59 [facility] Comment on above: Performed By: #### C MP, URIC #### [facility] [address] [place] [address] Dr. Hussein Camacho Anion gap [Moles/Vol] 12.4 mmol/L Normal [facility] Comment on above: Performed By: #### C MP, URIC #### [facility] [address] [place] [address] Dr. Hussein Camacho AST [Catalytic activity/Vol] 23 U/L Normal 15-37 [facility] Comment on above: Performed By: #### C MP, URIC #### [facility] [address] [place] [address] Dr. Hussein Camacho Bilirubin [Mass/Vol] 0.4 mg/dL Normal 0.2-1.0 [facility] Comment on above: Performed By: #### C MP, URIC #### [facility] [address] [place] [address] Dr. Hussein Camacho Calcium [Mass/Vol] 9.2 mg/dL Normal 8.5-10.1 [facility] Comment on above: Performed By: #### C MP, URIC #### [facility] [address] [place] [address] Dr. Hussein Camacho Chloride [Moles/Vol] 102 mmol/L Normal 98-107 [facility] Comment on above: Performed By: #### C MP, URIC #### [facility] [address] [place] [address] Dr. Hussein Camacho CO2 [Moles/Vol] 28.5 mmol/L Normal 21.0-32.0 [facility] Comment on above: Performed By: #### C MP, URIC #### [facility] [address] [place] [address] Dr. Hussein Camacho Creatinine [Mass/Vol] 1.55 mg/dL Critically high 0.55-1.02 [facility] Comment on above: Performed By: #### C MP, URIC #### [facility] [address] [place] [address] Dr. Hussein Camacho EGFR-AF MACEDONIAN 39 mL/min/1.73m2 Critically low >=60 [facility] Comment on above: Performed By: #### C MP, URIC #### [facility] [address] [place] [address] Dr. Hussein Camacho EGFR-NON AF MACEDONIAN 32 mL/min/1.73m2 Critically low >=60 [facility] Comment on above: Performed By: #### C MP, URIC #### [facility] [address] [place] [address] Dr. Hussein Camacho Globulin (S) [Mass/Vol] 3.9 g/dL Normal [facility] Comment on above: Performed By: #### C MP, URIC #### [facility] [address] [place] [address] Dr. Hussein Camacho Glucose [Mass/Vol] 160 mg/dL Critically high 74-106 [facility] Comment on above: Performed By: #### C MP, URIC #### [facility] [address] [place] [address] Dr. Hussein Camacho Potassium [Moles/Vol] 3.9 mmol/L Normal 3.5-5.1 [facility] Comment on above: Performed By: #### C MP, URIC #### [facility] [address] [place] [address] Dr. Hussein Camacho Protein [Mass/Vol] 8.2 g/dL Normal 6.4-8.2 [facility] Comment on above: Performed By: #### C MP, URIC #### [facility] [address] [place] [address] Dr. Hussein Camacho Sodium [Moles/Vol] 139 mmol/L Normal 136-145 [facility] Comment on above: Performed By: #### C MP, URIC #### [facility] [address] [place] [address] Dr. Hussein Camacho Urea nitrogen [Mass/Vol] 42.0 mg/dL Critically high 7.0-18.0 [facility] Comment on above: Performed By: #### C MP, URIC #### [facility] [address] [place] [address] Dr. Hussein Camacho Urea nitrogen/Creatinine [Mass ratio] 27.1 mg/mg Normal [facility] Comment on above: Performed By: #### C MP, URIC #### [facility] [address] [place] [address] Dr. Hussein Camacho UA RANDOMon 09-10-2022 Bilirubin Ql (U) Negative Normal NEGATIVE [facility] Comment on above: Performed By: #### U A #### [facility] [address] [place] [address] Dr. Hussein Camacho Clarity (U) CLEAR Normal CLEAR [facility] Comment on above: Performed By: #### U A #### [facility] [address] [place] [address] Dr. Hussein Camacho Color (U) LT. YELLOW Normal YELLOW [facility] Comment on above: Performed By: #### U A #### [facility] [address] [place] [address] Dr. Hussein Camacho Glucose Ql (U) Negative Normal NEGATIVE [facility] Comment on above: Performed By: #### U A #### [facility] [address] [place] [address] Dr. Hussein Camacho Hemoglobin Ql (U) TRACE-INTACT Abnormal NEGATIVE [facility] Comment on above: Performed By: #### U A #### [facility] [address] [place] [address] Dr. Hussein Camacho Ketones Ql (U) Negative Normal NEGATIVE [facility] Comment on above: Performed By: #### U A #### [facility] [address] [place] [address] Dr. Hussein Camacho LEUKOCYTES SMALL Abnormal NEGATIVE [facility] Comment on above: Performed By: #### U A #### [facility] [address] [place] [address] Dr. Hussein Camacho Nitrite Ql (U) Negative Normal NEGATIVE [facility] Comment on above: Performed By: #### U A #### [facility] [address] [place] [address] Dr. Hussein Camacho pH (U) 6.0 [pH] Normal 5-9 [facility] Comment on above: Performed By: #### U A #### [facility] [address] [place] [address] Dr. Hussein Camacho SPEC GRAVITY 1.020 Normal 1.005-<=1.02 5 [facility] Comment on above: Performed By: #### U A #### [facility] [address] [place] [address] Dr. Hussein Camacho UA PROTEIN Negative Normal NEGATIVE/ TRACE [facility] Comment on above: Performed By: #### U A #### [facility] [address] [place] [address] Dr. Hussein Camacho Urobilinogen Qn (U) 0.2 {Naina'U}/dL Normal 0.2 - 1. 0 [facility] Comment on above: Performed By: #### U A #### [facility] [address] [place] [address] Dr. Hussein Camacho URIC ACID SERUMon 09-10-2022 Urate [Mass/Vol] 7.5 mg/dL Critically high 2.6-6.0 [facility] Comment on above: Performed By: #### C MP, URIC #### [facility] [address] [place] [address] Dr. Husesin Camacho URINE T PROTEIN CREAT RATIOo n 09-10-2022 Protein (U) [Mass/Vol] 7.3 mg/dL Normal <=12.0 [facility] Comment on above: Performed By: #### U RTPCR #### [facility] [address] [place] [address] Dr. Hussein Camacho UR PROT CREAT RAT 0.13 Normal [facility] Comment on above: Performed By: #### U RTPCR #### [facility] [address] [place] [address] Dr. Husseni Camacho URINE CREAT 56.41 mg/dL Normal 20.00-300.00 [facility] Comment on above: Performed By: #### U RTPCR #### [facility] [address] [place] [address] Dr. Hussein Camacho VITAMIN D 25 OHon 09-10-2022 VIT D 25-OH 50.6 ng/mL Normal [facility] Comment on above: Performed By: #### V ITAD #### [facility] [address] [place] [address] Dr. Hussein Camacho VIT D RANGES SEE BELOW Normal [facility] Comment on above: Result Comment: <20 ng/mL Vit D deficient 20 - <30 ng/mL Vit D insufficient 30 - 100 ng/mL Vit D sufficient >100 ng/mL Potential Toxicity Performed By: #### V ITAD #### [facility] [address] [id number] Hussein Camacho ECHOCARDIO M/2D COMPLETEon 0 08-21-2022 ECHOCARDIO M/2D COMPLETE Patient: YESY RODRIGUEZ Exam Date: 08/21/2022 : 1940 Gender:F Ordering : KATHARINA JOVEL Admission #: [id number] Family : DR ZACHARY WARE Order #: [id number] CLICK HERE TO VIEW EXAM ECHOCARDIOGRAM REPORT [...] Onel Walters M.D. on 08/23/2022 at 17:05 [facility] CA 125on 07-10-2022 CA 125 8 U/mL NINF - 38 U/mL [facility] Comment on above: The Jorje ECLIA as say is used. Results obtained with different assay methods cannot be used interchangeable. [facility] ALBUMIN, RANDOM URINE W/CREA TININEon 06-11-2022 ALBUMIN, URINE 2.5 mg/dL Normal See Note: [facility] Comment on above: Order Comment: FASTI NG:YESFASTING: YES Result Comment: Refe rence Range: Reference Range Not established Performed By: #### 1 0165, 867 #### [facility] [address], [address] [place] [address] News Agent: Matt Beasley MD ALBUMIN/CREATININE RATIO, RANDOM URINE [...] #### 1 016, 867 #### [facility] [address], [address] [place] [address] News Agent: Matt Beasley MD Creatinine (U) [Mass/Vol] 64 mg/dL Normal 20-275 [facility] Comment on above: Order Comment: FASTI NG:YESFASTING: YES Performed By: #### 1 016, 867 #### [facility] [address], [address] [place] [address] News Agent: Matt Beasley MD BASIC METABOLIC PANELon 05-31 Calcium [Mass/Vol] 10.0 mg/dL Normal 8.6-10.4 [facility] Comment on above: Performed By: #### 1 016, 867 #### [facility] [address], [address] [place] [address] News Agent: Matt Beasley MD Chloride [Moles/Vol] 103 mmol/L Normal 98-110 [facility] Comment on above: Performed By: #### 1 164, 867 #### [facility] [address], [address] [place] [address] News Agent: Matt Beasely MD CO2 [Moles/Vol] 25 mmol/L Normal 20-32 [facility] Comment on above: Performed By: #### 1 164, 867 #### [facility] [address], [address] [place] [address] News Agent: Matt Beasley MD Creatinine [Mass/Vol] 1.43 mg/dL High 0.60-0.[address] [facility] Comment on above: Performed By: #### 1 164, 867 #### [facility] [address], [address] [place] [address] News Agent: Matt Beasley MD GFR/1.73 sq M.predicted among non-blacks MDRD (S/P/Bld) [Vol rate/Area] 36 mL/min/{1.73_m2} Low > OR = 60 [facility] Comment on above: Result Comment: The eGFR is based on the CKD-EPI 2020 equation. To calculate the new eGFR from a previous Creatinine or Cystatin C result, go to https://www.kidney.org/professionals/ kdoqi/gfr%5Fcalculator Performed By: #### 1 164, 867 #### [facility] [address] [address] News Agent: Matt Beasley MD Glucose [Mass/Vol] 124 mg/dL High 65-99 [facility] Comment on above: Result Comment: Fasting reference interval For someone without known diabetes, a glucose value between 100 and 125 mg/dL is consistent with prediabetes and should be confirmed with a follow-up test. Performed By: #### 1 016, 867 #### [facility] [address], [address] [place] [address] News Agent: Matt Beasley MD Potassium [Moles/Vol] 5.5 mmol/L High 3.5-5.[address] [facility] Comment on above: Performed By: #### 1 164, 867 #### [facility] [address], [address] [place] [address] News Agent: Matt Beasley MD Sodium [Moles/Vol] 138 mmol/L Normal 135-146 [facility] Comment on above: Performed By: #### 1 0165, 867 #### [facility] [address], [address] [place] [address] News Agent: Matt Beasley MD Urea nitrogen [Mass/Vol] 43 mg/dL High 7-25 [facility] Comment on above: Performed By: #### 1 0165, 867 #### [facility] [address], [address] [place] [address] News Agent: Matt Beasley MD Urea nitrogen/Creatinine [Mass ratio] 30 mg/mg High 6-22 [facility] Comment on above: Performed By: #### 1 016, 867 #### [facility] [address], [address] [place] [address] News Agent: Matt Beasley MD HEMOGLOBIN A1con 06-11-2022 HEMOGLOBIN A1c 6.1 % of total Hgb High <5.7 est [...] #### 1 0165, 867 #### [facility] [address], [address] [place] [address] News Agent: Matt Beasley MD ECHOCARDIO M/2D COMPLETEon 0 06-05-2022 ECHOCARDIO M/2D COMPLETE Patient: YESY RODRIGUEZ Exam Date: 06/05/2022 : 1940 Gender:F Ordering : DHEERAJ WHITEHEAD Admission #: [id number] Family : DR HUNT Shyam WARE Order #: [id number] CLICK HERE TO VIEW EXAM ECHOCARDIOGRAM REPORT [...] M.D. on 06/05/2022 at 13:14 Normal [facility] MAMM SCREEN 3D GIRMA CADon 05-29-2022 MAMM SCREEN 3D GIRMA CAD Patient: YESY RODRIGUEZ Exam Date: 05/29/2022 : 1940 Gender:F Ordering : DR ZACHARY WARE Admission #: [id number] Family : Order #: [id number] CLICK HERE TO VIEW EXAM RADIOLOGY REPORT [...] ovarian cancer at age 36. LOCATION: [facility] BREAST COMPOSITION: Heterogeneously dense,which may [...] Schreiber MD on 06/11/2022 at 14:06 Normal [facility] PROF CHEM 8 (BAS METB)on Anion gap [Moles/Vol] 15.1 mmol/L Normal [facility] Comment on above: Performed By: #### B MP #### [facility] [address] [address] [address] Hussein Camacho Calcium [Mass/Vol] 9.6 mg/dL Normal 8.5-10.1 [facility] Comment on above: Performed By: #### B MP #### [facility] [address] [place] [address] Dr. Hussein Camacho Chloride [Moles/Vol] 103 mmol/L Normal 98-107 [facility] Comment on above: Performed By: #### B MP #### [facility] [address] [address] [address] Hussein Camacho CO2 [Moles/Vol] 26.0 mmol/L Normal 21.0-32.0 [facility] Comment on above: Performed By: #### B MP #### [facility] [address] [place] [address] Dr. Hussein Camacho Creatinine [Mass/Vol] 1.51 mg/dL Critically high 0.55-1.02 [facility] Comment on above: Performed By: #### B MP #### [facility] [address] [address] [address] Hussein Camacho EGFR-AF MACEDONIAN 40 mL/min/1.73m2 Critically low >=60 [facility] Comment on above: Performed By: #### B MP #### [facility] [address] [place] [address] Dr. Hussein Camacho EGFR-NON AF MACEDONIAN 33 mL/min/1.73m2 Critically low >=60 [facility] Comment on above: Performed By: #### B MP #### [facility] [address] [address] [address] Hussein Camacho Glucose [Mass/Vol] 120 mg/dL Critically high 74-106 T [facility] Comment on above: Performed By: #### B MP #### [facility] [address] [address] [address] Hussein Camacho Potassium [Moles/Vol] 5.1 mmol/L Normal 3.5-5.1 [facility] Comment on above: Performed By: #### B MP #### [facility] [address] [address] [address] Hussein Camacho Sodium [Moles/Vol] 139 mmol/L Normal 136-145 [facility] Comment on above: Performed By: #### B MP #### [facility] [address] [address] [address] Hussein Camacho Urea nitrogen [Mass/Vol] 40.0 mg/dL Critically high 7.0-18.0 [facility] Comment on above: Performed By: #### B MP #### [facility] [address] [address] [address] Hussein Camacho Urea nitrogen/Creatinine [Mass ratio] 26.5 mg/mg Normal [facility] Comment on above: Performed By: #### B MP #### [facility] [address] [address] [address] Hussein Camacho Basic Metabolic Panel 03-02 Anion gap [Moles/Vol] 10 mmol/L 9 - 17 mmol/L [facility] Calcium [Mass/Vol] 9.8 mg/dL 8.6 - 10. 4 mg/dL [facility] Chloride [Moles/Vol] 104 mmol/L 98 - 10 7 mmol/L [facility] CO2 [Moles/Vol] 25 mmol/L 20 - 31 mmol/L [facility] Creatinine [Mass/Vol] 1.23 mg/dL High 0.50 - 0.90 mg/dL [facility] GFR 51 mL/min Low >60 [facility] GFR Non- 42 mL/min Low >60 [facility] Glucose [Mass/Vol] 133 mg/dL High 70 - 99 mg/dL [facility] Interpretation and review of laboratory results Abnormal [facility] Potassium [Moles/Vol] 4.2 mmol/L 3.7 - 5.3 mmol/L [facility] Sodium [Moles/Vol] 139 mmol/L 135 - 144 mmol/L [facility] Urea nitrogen (BldV) [Mass/Vol] 32 mg/dL High 8 - 23 mg/dL [facility] Urea nitrogen/Creatinine (Bld) [Mass ratio] 26 High [facility] - Chemistry and C hemistry - challengeon 03-27-2022 GFR/1.73 sq M.predicted MDRD (S/P/Bld) [Vol rate/Area] [facility] Comment on above: Average GFR for 70 o r more years old: 75 mL/min/1.73sq m Chronic Kidney Disease: <60 mL/min/1.73sq m Kidney failure: <15 mL/min/1.73sq m eGFR calculated using average adult body mass. Additional eGFR calculator available at: http://www.StepUp/multiple_crcl_2012.htm Stage 1: Some kidney damage normal GFR Stage 2: Mild kidney damage GFR 60-89 Stage 3: Moderate kidney damage GFR 30-59 Stage 4: Severe kidney damage GFR 15-29 Stage 5: Severe kidney damage GFR <15 ESRD - chronic treatment by dialysis or transplant BASIC METABOLIC PANELon Calcium [Mass/Vol] 10.1 mg/dL Normal 8.6-10.4 [facility] Comment on above: Performed By: #### 1 7306, 905, 90591, 718, 25843, 622, [id number], 496 #### [facility] [address], [address] [place], [place] [id number] News Agent: Matt Beasley MD Chloride [Moles/Vol] 100 mmol/L Normal 98-110 [facility] Comment on above: Performed By: #### 1 7306, 905, 74450, 718, 17222, 622, 68925, 496 #### [facility] [address], [address] [place], [place] [phone] News Agent: Matt Beasley MD CO2 [Moles/Vol] 28 mmol/L Normal 20-32 [facility] Comment on above: Performed By: #### 1 7306, 905, 26092, 718, 40149, 622, 15503, 496 #### [facility] [place] [phone] News Agent: Matt Beasley MD Creatinine [Mass/Vol] 1.89 mg/dL High 0.60-0.[address] [facility] Comment on above: Result Comment: For patients >49 years of age, the reference limit for Creatinine is approximately 13% higher for people identified as -New Zealander. Performed By: #### 1 7306, 905, 31009, 718, 69371, 622, 74887, 496 #### [facility] [place] [address] News Agent: Matt Beasley MD eGFR NON-AFR. MACEDONIAN 24 mL/min/1.73m2 Low > OR = 60 [facility] Comment on above: Performed By: #### 1 7306, 905, 65332, 718, 98657, 622, 53398, 496 #### [facility] [place] [phone] News Agent: Matt Beasley MD GFR/1.73 sq M.predicted among blacks MDRD (S/P/Bld) [Vol rate/Area] 28 mL/min/{1.73_m2} Low > OR = 60 [facility] Comment on above: Performed By: #### 1 7306, 905, 39259, 718, 07538, 622, 02216, 496 #### [facility] [address], [address] [place] [phone] News Agent: Matt Beasley MD Glucose [Mass/Vol] 123 mg/dL High 65-99 [facility] Comment on above: Result Comment: Fasting reference interval For someone without known diabetes, a glucose value between 100 and 125 mg/dL is consistent with prediabetes and should be confirmed with a follow-up test. Performed By: #### 1 7306, 905, 67449, 718, 35116, 622, 22283, 496 #### [facility] [place] [address] News Agent: Matt Beasley MD Potassium [Moles/Vol] 4.7 mmol/L Normal 3.5-5.[address] [facility] [address] [facility] Comment on above: Performed By: #### 1 7306, 905, 23359, 718, 04197, 622, 37957, 496 #### [facility] [place] [address] News Agent: Matt Beasley MD Sodium [Moles/Vol] 136 mmol/L Normal 135-146 [facility] Comment on above: Performed By: #### 1 7306, 905, 21710, 718, 10554, 622, 59154, 496 #### [facility] [place] [address] News Agent: Matt Beasley MD Urea nitrogen [Mass/Vol] 64 mg/dL High 7-25 [facility] Comment on above: Performed By: #### 1 7306, 905, 19732, 718, 23686, 622, 64579, 496 #### [facility] [place] [address] News Agent: Matt Beasley MD Urea nitrogen/Creatinine [Mass ratio] 34 mg/mg High 6-22 [facility] Comment on above: Performed By: #### 1 7306, 905, 27601, 718, 79466, 622, 43748, 496 #### [facility] [place] [address] News Agent: Matt Beasley MD HEMOGLOBIN A1con 03-05-2022 HEMOGLOBIN [...] #### 1 0165, 867 #### [facility] [address], [address] [place] [address] News Agent: Matt Beasley MD MAGNESIUMon 03-05-2022 Magnesium [Mass/Vol] 2.3 mg/dL Normal 1.5-2.5 [facility] Comment on above: Order Comment: FASTI NG:YES FASTING: YES Performed By: #### 1 7306, 905, 19076, 718, 23753, 622, 01892, 496 #### [facility] [address], [address] [place] [address] News Agent: Matt Beasley MD PHOSPHATE ( PHOSPHORUS)on 03-05-2022 Phosphate [Mass/Vol] 4.5 mg/dL High 2.1-4.3 [facility] Comment on above: Performed By: #### 1 7306, 905, 65611, 718, 37735, 622, 87373, 496 #### [facility] [address], [address] [place] [address] News Agent: Matt Beasley MD PTH, INTACT WITHOUT CALCIUMo [...] High Performed By: #### 1 7306, 905, 50662, 718, 28399, 622, 66525, 496 #### [facility] [address], [address] [place] [address] News Agent: Matt Beasley MD TSH W/REFLEX TO FT4on 2021 TSH W/REFLEX TO FT4 4.31 mIU/L Normal 0.40-4.50 [facility] Comment on above: Performed By: #### 1 7306, 905, 85923, 718, 19399, 622, 40862, 496 #### [facility] [place] [address] [facility], [address] [place] [phone] News Agent: Matt Beasley MD URIC ACIDon 03-05-2022 Urate [Mass/Vol] 8.7 mg/dL High 2.5-7.0 [facility] Comment on above: Result Comment: Ther apeutic target for gout patients: <6.0 mg/dL Performed By: #### 1 7306, 905, 83492, 718, 11323, 622, 80051, 496 #### [facility] [address], [address] [place] [phone] News Agent: Matt Beasley MD VITAMIN D,25-OH,TOTAL,IAon 0 03-05-2022 [...] D, (D2,D3), LC/MS/MS is recommended: order code 44642 (patients >2yrs). See Note 1 Note 1 For additional information, please refer to http://[email or web address]/faq/[email or web address] (This link is being provided for informational/ educational purposes only.) Performed By: #### 1 7306, 905, 71005, 718, 64151, 622, 22036, 496 #### [facility] [address], [address] [place] [phone] News Agent: Matt Beasley MD US carotid doppler BIon 01-02 US carotid doppler BI [facility] [place] [address] Ultrasound Report Signed Patient: Yesy Valadez MR#: [id number] [birth year] : 1940 Acct:[id number] Age/Sex: 81 / F ADM Date: 01/21/22 Loc: RT Room: Type: [facility] Attending Dr: Onel Walters MD Ordering Provider: [...] Kevon Hickman MD01/22/2022 12:41 PM Dictation Location: [place] [address] Tech: Alissa Arguello Transcribed By: DENIA 01/22/22 124 Dictated By: Kevon Hickman MD 01/22/22 124 Signed By: 01/22/[address] [facility] Complete Pulmonary Functiono n 01-21-2022 Complete Pulmonary Function [facility] [place] [address] Pulmonary Function Signed Patient: Yesy Valadez MR#: [id number] [birth year] : 1940 Acct:[id number] Age/Sex: 81 / F ADM Date: 01/21/22 Loc: RT Room: Type: [facility] Attending Dr: Onel Walters MD Ordering Provider: [...] of 1.17 L or 83% predicted. The FRW40-16% was supranormal at 2.15 L/sec or 214% predicted with this all likely related to the inadequate duration of exhalation. After a 350% longer duration of exhalation on the postbronchodilator effort, the forced vital capacity did improve by 25% to 1.47 L or 76% predicted. There is actually a 14% decline in the FEV1 and a 60% decline in the QLM29-07%. LUNG VOLUMES: Lung volumes by plethysmography indicate [...] Transcribed By: DEVON 01/22/22 1036 Dictated By: Jam Bucio MD 01/21/22 1240 Signed By: 01/22/[address] [facility] CREATININE BLOODon 2 Creatinine [Mass/Vol] 1.04 mg/dL Normal 0.60-1.[address] [facility] Comment on above: Order Comment: No: D o not add to previous draw Performed By: #### 2 5656 #### [facility] [address] [place] [address], [facility] eGFR- non- 50 ml/min/1.73sq m Abnormal >60 [facility] Comment on above: Order Comment: No: D o not add to previous draw Result Comment: Calc ulation may not be valid for patients over 70 years Performed By: #### 2 5656 #### [facility] [address] [place] [address], [facility] GFR/1.73 sq M.predicted among blacks MDRD (S/P/Bld) [Vol rate/Area] mL/min/{1.73_m2} Normal >[address] [facility] Comment on above: Order Comment: No: D o not add to previous draw Result Comment: Calc ulation may not be valid for patients over 70 years Performed By: #### 2 5656 #### [facility] [address] [facility]. [address] Cardiovascular Lab Reporton 01-17-2022 Cardiovascular Lab Report [facility] Patient Name: Yesy Rodriguez [facility] MR #: [id number] Physician: Onel Tate Department of Vilma Walters Medicine Service Date: 01/16/2022 Division of Birthdate: 1940 Cardiology Room #: 4CD [id number] Adult Cardiovascular Services [place] [address] Cardiovascular Laboratory Report INDICATION: The patient is [...] enlarged. She is now brought to the laboratory courier for cardiac catheterization. PROCEDURES: 1. Right heart catheterization. 2. Left heart catheterization. 3. Mitral valve study. 4. Aortic valve study. 5. Bilateral selective coronary angiography. 6. Limited right common femoral angiography. 7. Access into the right common femoral artery and vein under ultrasound guidance. METHODS: Procedure was explained to the patient with risks and benefits. She signed consent. She was brought to laboratory courier in a fasting state. The right groin area was prepped and draped in usual fashion. Micropuncture technique was used for access in the right common femoral artery. Inner cannula angiography was performed followed by upsizing to a 4-New Zealander x 11 cm sheath. Access was obtained using same technique in the right common femoral vein and a 6-[place] Zealander x 11 cm sheath was placed. A 6-[place] Zealander Orosco catheter was used for heart catheterization with measurement pressures and calculation of cardiac output using the estimated ROSE MARIE method. A 4-[place] Zealander JR4 diagnostic catheter was advanced to the [...] selective coronary angiography was then performed using 4-New Zealander JL4 and JR4 diagnostic catheters. Catheters were [...] 3. Moderately elevated right-sided filling pressures. 4. Ksuacjsf-ke-vogijr elevation of the left-sided filling pressures. 5. [...] on (more content not included)... Normal [facility] POC GLUCOSE LABon 01-17-2022 Glucose [Mass/Vol] 109 mg/dL High 70-100 [facility] Comment on above: Performed By: #### 8 5499 #### [facility] [address] [facility]. [address] BASIC METABOLIC PANELon 01-01 Calcium [Mass/Vol] 9.2 mg/dL Normal 8.6-10.3 [facility] Comment on above: Order Comment: This order is a replacement of the rejected order with accession number [id number]. Performed By: #### 0 0071 #### [facility] [address] [place] [address], [facility] Chloride [Moles/Vol] 105 mmol/L Normal 98-[address] [facility] Comment on above: Order Comment: This order is a replacement of the rejected order with accession number [id number]. Performed By: #### 0 0071 #### [facility] [address] [place] [address], [facility] CO2 [Moles/Vol] 26 mmol/L Normal 21-31 The [facility] Comment on above: Order Comment: This order is a replacement of the rejected order with accession number [id number]. Performed By: #### 0 0071 #### [facility] [address] [place] [address], [facility] Creatinine [Mass/Vol] 1.27 mg/dL High 0.60-1.20 [facility] Comment on above: Order Comment: This order is a replacement of the rejected order with accession number [id number]. Performed By: #### 0 0071 #### [facility] [address] eGFR- 49 ml/min/1.73sq m Abnormal >60 [facility] Comment on above: Order Comment: This order is a replacement of the rejected order with accession number [id number]. Result Comment: Calc ulation may not be valid for patients over 70 years Performed By: #### 0 0071 #### [facility] [address] eGFR- non- 40 ml/min/1.73sq m Abnormal >60 [facility] Comment on above: Order Comment: This order is a replacement of the rejected order with accession number [id number]. Result Comment: Calc ulation may not be valid for patients over 70 years Performed By: #### 0 0071 #### [facility] [address] [facility] [place] [address], [facility] Glucose [Mass/Vol] 113 mg/dL High 70-[address] [facility] Comment on above: Order Comment: This order is a replacement of the rejected order with accession number [id number]. Performed By: #### 0 0071 #### [facility] [address] [place] [address], [facility] Potassium [Moles/Vol] 4.0 mmol/L Normal 3.5-5.1 [facility] Comment on above: Order Comment: This order is a replacement of the rejected order with accession number [id number]. Performed By: #### 0 0071 #### [facility] [address] [place] [address], [place] Sodium [Moles/Vol] 140 mmol/L Normal 136-145 [facility] Comment on above: Order Comment: This order is a replacement of the rejected order with accession number [id number]. Performed By: #### 0 0071 #### [facility] [address] [place] [address], [place] Urea nitrogen [Mass/Vol] 48 mg/dL High 7-[address] [facility] Comment on above: Order Comment: This order is a replacement of the rejected order with accession number [id number]. Performed By: #### 0 0071 #### [facility] [address] [place] [address], [place] Calcium [Mass/Vol] 9.3 mg/dL Normal 8.6-10.[address] [facility] Comment on above: Performed By: #### 0 0071 #### [facility] [address] [place] [address], [place] Chloride [Moles/Vol] 106 mmol/L Normal 98-107 [facility] Comment on above: Performed By: #### 0 0071 #### [facility] [address] [place] [address], [place] CO2 [Moles/Vol] 27 mmol/L Normal 21-31 [facility] Comment on above: Performed By: #### 0 0071 #### [facility] [address] [place] [address], [place] Creatinine [Mass/Vol] 1.47 mg/dL High 0.60-1.20 [facility] Comment on above: Performed By: #### 0 0071 #### [facility] [address] [place] [address], [place] eGFR- 41 ml/min/1.73sq m Abnormal >60 [facility] Comment on above: Result Comment: Calc ulation may not be valid for patients over 70 years Performed By: #### 0 0071 #### [facility] [address] [place] [address], [facility] eGFR- non- 34 ml/min/1.73sq m Abnormal >60 [facility] Comment on above: Result Comment: Calc ulation may not be valid for patients over 70 years Performed By: #### 0 0071 #### [facility] [address] [place] [address], [place] Glucose [Mass/Vol] 107 mg/dL High 70-100 [facility] Comment on above: Performed By: #### 0 0071 #### [facility] [address] [place] [address], [place] Potassium [Moles/Vol] 4.5 mmol/L Normal 3.5-5.[address] [facility] Comment on above: Performed By: #### 0 0071 #### [facility] [address] [place] [address], [place] Sodium [Moles/Vol] 141 mmol/L Normal 136-145 [facility] Comment on above: Performed By: #### 0 0071 #### [facility] [address] [place] [address], [place] Urea nitrogen [Mass/Vol] 51 mg/dL High 7-[address] [facility] Comment on above: Performed By: #### 0 0071 #### [facility] [address] [place] [address], [place] CBC COMPLETE BLOOD COUNTon 0 01-16-2022 Erythrocyte distribution width (RBC) [Ratio] 15.6 % High 11.5-15.[address] [facility] Comment on above: Performed By: #### 5 0608 #### [facility] [address] [place] [address], [place] Hematocrit (Bld) [Volume fraction] 39.3 % Normal 36.0-45.[address] [facility] Comment on above: Performed By: #### 5 0608 #### [facility] [address] [place] [address], [facility] Hemoglobin (Bld) [Mass/Vol] 12.2 g/dL Normal 12.0-15.[address] [facility] Comment on above: Performed By: #### 5 0608 #### [facility] [address] MCH (RBC) [Entitic mass] 28.7 pg Normal 27.0-33.[address] [facility] Comment on above: Performed By: #### 5 0608 #### [facility] [address] MCHC (RBC) [Mass/Vol] 31.0 g/dL Low 32.0-35.[address] [facility] Comment on above: Performed By: #### 5 0608 #### [facility] [address] [place] [address], [facility] MCV (RBC) [Entitic vol] 92.5 fL Normal 82.0-98.[address] [facility] Comment on above: Performed By: #### 5 0608 #### [facility] [address] [facility] [address] Nucleated RBC/100 WBC (Bld) [Ratio] 0 % Normal 0-[address] [facility] Comment on above: Performed By: #### 5 0608 #### [facility] [address] [place] [address], [facility] PLAT CNT 278 10*3/uL Normal 150-400 [facility] Comment on above: Performed By: #### 5 0608 #### [facility] [address] [place] [address], [facility] RBC (Bld) [#/Vol] 4.25 10*6/uL Normal 3.80-5.00 [facility] Comment on above: Performed By: #### 5 0608 #### [facility] [address] [place] [address], [facility] WBC (Bld) [#/Vol] 8.68 10*3/uL Normal 4.00-10.60 [facility] Comment on above: Performed By: #### 5 0608 #### [facility] [address] [place] [address], [facility] BASIC METABOLIC PANELon 12-01 Calcium [Mass/Vol] 10.2 mg/dL Normal 8.6-10.4 [facility] Comment on above: Order Comment: FASTI NG:YESFASTING: YES Performed By: #### 1 016, 867 #### [facility] [place] [address] News Agent: Matt Beasley MD Chloride [Moles/Vol] 100 mmol/L Normal 98-110 [facility] Comment on above: Order Comment: FASTI NG:YESFASTING: YES Performed By: #### 1 Eugenie, 867 #### [facility] [place] [address] News Agent: Matt Beasley MD CO2 [Moles/Vol] 28 mmol/L Normal 20-32 [facility] Comment on above: Order Comment: FASTI NG:YESFASTING: YES Performed By: #### 1 164, 867 #### [facility] [place] [address] News Agent: Matt Beasley MD Creatinine [Mass/Vol] 1.54 mg/dL High 0.60-0.[address] [facility] Comment on above: Order Comment: FASTI NG:YESFASTING: YES Result Comment: For patients >49 years of age, the reference limit for Creatinine is approximately 13% higher for people identified as -[place] Zealander. Performed By: #### 1 016, 867 #### [facility] [address] [place] [address] News Agent: Matt Beasley MD eGFR NON-AFR. MACEDONIAN 31 mL/min/1.73m2 Low > OR = 60 [facility] Comment on above: Order Comment: FASTI NG:YESFASTING: YES Performed By: #### 1 016, 867 #### [facility] [place] [address] News Agent: Matt Beasley MD GFR/1.73 sq M.predicted among blacks MDRD (S/P/Bld) [Vol rate/Area] 36 mL/min/{1.73_m2} Low > OR = 60 [facility] Comment on above: Order Comment: FASTI NG:YESFASTING: YES Performed By: #### 1 016, 867 #### [facility] [place] [address] News Agent: Matt Beasley MD Glucose [Mass/Vol] 119 mg/dL High 65-99 [facility] Comment on above: Order Comment: FASTI NG:YESFASTING: YES Result Comment: Fasting reference interval For someone without known diabetes, a glucose value between 100 and 125 mg/dL is consistent with prediabetes and should be confirmed with a follow-up test. Performed By: #### 1 016, 867 #### [facility] [place] [address] News Agent: Matt Beasley MD Potassium [Moles/Vol] 4.1 mmol/L Normal 3.5-5.[address] [facility] Comment on above: Order Comment: FASTI NG:YESFASTING: YES Performed By: #### 1 164, 867 #### [facility] [place] [address] News Agent: Matt Beasley MD Sodium [Moles/Vol] 140 mmol/L Normal 135-146 [facility] Comment on above: Order Comment: FASTI NG:YESFASTING: YES Performed By: #### 1 016, 867 #### [facility] [address] [place] [address] News Agent: Matt Beasley MD Urea nitrogen [Mass/Vol] 45 mg/dL High 7-25 [facility] Comment on above: Order Comment: FASTI NG:YESFASTING: YES Performed By: #### 1 016, 867 #### [facility] [address], [address] [place] [address] News Agent: Matt Beasley MD Urea nitrogen/Creatinine [Mass ratio] 29 mg/mg High 6-22 [facility] Comment on above: Order Comment: FASTI NG:YESFASTING: YES Performed By: #### 1 016, 867 #### [facility] [place] [address] News Agent: Matt Beasley MD BASIC METABOLIC PANELon 11-2 Calcium [Mass/Vol] 10.1 mg/dL Normal 8.6-10.4 [facility] Comment on above: Performed By: #### 1 016, 867 #### [facility] [place] [address] News Agent: Matt Beasley MD Chloride [Moles/Vol] 103 mmol/L Normal 98-110 [facility] Comment on above: Performed By: #### 1 016, 867 #### [facility] [place] [address] News Agent: Matt Beasley MD CO2 [Moles/Vol] 28 mmol/L Normal 20-32 [facility] Comment on above: Performed By: #### 1 016, 867 #### [facility] [place] [address] News Agent: Matt Beasley MD Creatinine [Mass/Vol] 1.29 mg/dL High 0.60-0.[address] [facility] Comment on above: Result Comment: For patients >49 years of age, the reference limit for Creatinine is approximately 13% higher for people identified as -[place] Zealander. Performed By: #### 1 016, 867 #### [facility] [place] [address] News Agent: Matt Beasley MD eGFR NON-AFR. MACEDONIAN 38 mL/min/1.73m2 Low > OR = 60 [facility] Comment on above: Performed By: #### 1 0165, 867 #### [facility] [place] [address] News Agent: Matt Beasley MD GFR/1.73 sq M.predicted among blacks MDRD (S/P/Bld) [Vol rate/Area] 44 mL/min/{1.73_m2} Low > OR = 60 [facility] Comment on above: Performed By: #### 1 0165, 867 #### [facility] [place] [address] News Agent: Matt Beasley MD Glucose [Mass/Vol] 107 mg/dL High 65-99 [facility] Comment on above: Result Comment: Fasting reference interval For someone without known diabetes, a glucose value between 100 and 125 mg/dL is consistent with prediabetes and should be confirmed with a follow-up test. Performed By: #### 1 0165, 867 #### [facility] [place] [address] News Agent: Matt Beasley MD Potassium [Moles/Vol] 4.1 mmol/L Normal 3.5-5.[address] [facility] [address] [facility] Comment on above: Performed By: #### 1 0165, 867 #### [facility] [place] [address] News Agent: Matt Beasley MD Sodium [Moles/Vol] 139 mmol/L Normal 135-146 [facility] Comment on above: Performed By: #### 1 0165, 867 #### [facility] [place] [address] News Agent: Matt Beasley MD Urea nitrogen [Mass/Vol] 30 mg/dL High 7-25 [facility] Comment on above: Performed By: #### 1 0165, 867 #### [facility] [address], [address] [place] [address] News Agent: Matt Beasley MD Urea nitrogen/Creatinine [Mass ratio] 23 mg/mg High - [facility] Comment on above: Performed By: #### 1 0165, 867 #### [facility] [address], [address] [place] [address] News Agent: Matt Beasley MD T4 (THYROXINE), TOTALon 10-02 T4 [Mass/Vol] 7.8 ug/dL Normal 5.1-11.9 [facility] Comment on above: Performed By: #### 1 0165, 867 #### [facility] of [address], [address] [place] [address] News Agent: Matt Beasley MD TSHon 10-23-2021 TSH Qn 7.48 m[IU]/L High 0.40-4.50 [facility] Comment on above: Performed By: #### 1 016, 867 #### [facility] [address], [address] [place] [address] News Agent: Matt Beasley MD CA 125on 09-26-2021 CA 125 26 U/mL Normal <38 [facility] Comment on above: Performed By: #### C A125 #### [employer] [facility] [place] [address] Psychiatrist: Anrdew Blakely MD [place] 125Ordered By: Anabel Babb on on 09-26-2021 CA 125 26 U/mL <38 [facility] Work Phone: [employer] Work Phone: Microscopic UrinalysisOrdere d By: Anabel Cuevas on 09-26-2021 - [employer] Work Phone: Amorphous, UA NOT REPORTED None [facility] Work Phone: Bacteria, UA NOT REPORTED None [facility] Work Phone: Casts UA NOT REPORTED [facility] [employer] Work Phone: Crystals, UA NOT REPORTED None /HPF [facility] Work Phone: Epithelial Cells UA 0 TO 2 [facility] Work Phone: Mucus, UA NOT REPORTED None [facility] [employer] Work Phone: Other Observations UA NOT REPORTED NOT REQ. [facility] [employer] Work Phone: RBC, UA 2 TO 5 [facility] [employer] Work Phone: Comment on above: Reference range defi margarita for non-centrifuged specimen. Renal Epithelial, UA NOT REPORTED 0 /HPF Me [facility] Work Phone: Trichomonas, UA NOT REPORTED None [facility] [employer] Work Phone: WBC, UA 0 TO 2 [facility] [employer] Work Phone: Yeast, UA NOT REPORTED None [facility] [employer] Work Phone: [facility] [employer] Work Phone: UA w/Reflex Cultureon 2020 Bilirubin, SemiQt,Ur Negative Normal NEG [facility] Comment on above: Performed By: #### U AX, UMICAO #### [facility] [address] [place] [address] Psychiatrist: Andrew Blakely MD Blood, Urine Negative Normal NEG [facility] Comment on above: Performed By: #### U AX, UMICAO #### [facility] [address] [place] [address] Psychiatrist: Andrew Blakely MD Clarity (U) Clear Normal CLEAR [facility] Comment on above: Performed By: #### U AX, UMICAO #### [facility] [place] [address] Psychiatrist: Andrew Blakely MD Color (U) Yellow Normal YEL [facility] Comment on above: Performed By: #### U AX, UMICAO #### [facility] [address] [place] [address] Psychiatrist: Andrew Blakely MD Glucose Ql (U) Negative Normal NEG [facility] Comment on above: Performed By: #### U AX, UMICAO #### [facility] [address] [place] [address] Psychiatrist: Andrew Blakely MD Ketones Ql (U) Negative Normal NEG [facility] Comment on above: Performed By: #### U AX, UMICAO #### [facility] [address] [place] [address] Psychiatrist: Andrew Blakely MD Leukocyte esterase Test strip Ql (U) TRACE Abnormal NEG [facility] Comment on above: Performed By: #### U AX, UMICAO #### [facility] [address] [place] [address] Psychiatrist: Andrew Blakely MD Nitrite,Ur Negative Normal NEG [facility] Comment on above: Performed By: #### U AX, UMICAO #### [facility] [address] [place] [address] Psychiatrist: Andrew Blakely MD PH,Ur 7.0 Normal 5.0-8.0 [facility] Comment on above: Performed By: #### U AX, UMICAO #### [facility] [address] [place] [address] Psychiatrist: Andrew Blakely MD Protein Ql (U) Negative Normal NEG [facility] Comment on above: Performed By: #### U AX, UMICAO #### [facility] [address] [place] [address] Psychiatrist: Andrew Blakely MD Spec. [place],Ur 1.015 Normal 1.005-1.030 [facility] Comment on above: Performed By: #### U AX, UMICAO #### [facility] [address] [place], [place] [phone] Psychiatrist: Andrew Blakely MD Urobilinogen,Ur Normal Normal NORM [facility] Comment on above: Performed By: #### U AX, UMICAO #### [facility] [address] [place], [place] [phone] Psychiatrist: Andrew Blakely MD Comment NOT REPORTED Normal [facility] Comment on above: Performed By: #### U AX, UMICAO #### [facility] [address] [place], [place] [phone] Psychiatrist: Andrew Blakely MD Urinalysis Reflex to Culture Ordered By: Anabel Cuevas on 09-26-2021 Bilirubin Urine Negative NEGATIVE [facility] Work Phone: Color, UA Yellow Yellow [facility] [employer] Work Phone: Glucose, Ur Negative NEGATIVE [facility] [employer] Work Phone: Interpretation and review of laboratory results Abnormal [facility] [employer] Work Phone: Ketones Ql (U) Negative NEGATIVE [facility] Work Phone: Leukocyte esterase Test strip Ql (U) TRACE Abnormal NEGATIVE [facility] [employer] Work Phone: Nitrite, Urine Negative NEGATIVE [facility] Work Phone: pH, UA 7.0 [facility] [employer] Work Phone: Protein, UA Negative NEGATIVE [facility] [employer] Work Phone: Specific [place], UA 1.015 [facility] [employer] Work Phone: Turbidity UA Clear Clear [facility] [employer] Work Phone: Urinalysis Comments NOT REPORTED [facility] [employer] Work Phone: Urine Hgb Negative NEGATIVE 9+ Phone: Urobilinogen, Urine Normal Normal 9+ Phone: 9+ Phone: Urinalysis,Microon 1 ----- Normal [facility] Comment on above: Performed By: #### U AX, UMICAO #### [facility] [address] [place] [address] Psychiatrist: Andrew Blakely MD Epithelial cells LM Ql (Urine sed) 0 TO 2 Normal 0-5 [facility] Comment on above: Performed By: #### U AX, UMICAO #### [facility] [address] [place] [address] Psychiatrist: Andrew Blakely MD Urine RBC's 2 TO 5 Normal 0-4 [facility] Comment on above: Result Comment: Refe rence range defined for non-centrifuged specimen. Performed By: #### U AX, UMICAO #### [facility] [address] [place] [address] Psychiatrist: Andrew Blakely MD Urine WBC's 0 TO 2 Normal 0-5 [facility] Comment on above: Performed By: #### U AX, UMICAO #### [facility] [address] [place] [address] Psychiatrist: Andrew Blakely MD Amorphous sediment LM Ql (Urine sed) NOT REPORTED Normal NONE [facility] Comment on above: Performed By: #### U AX, UMICAO #### [facility] [address] [place] [address] Psychiatrist: Andrew Blakely MD Bacteria NOT REPORTED Normal NONE [facility] Comment on above: Performed By: #### U AX, UMICAO #### [facility] [address] [place] [address] Psychiatrist: Andrew Blakely MD Casts NOT REPORTED Normal 0-8 [facility] Comment on above: Performed By: #### U AX, UMICAO #### [facility] [place] [address] Psychiatrist: Andrew Blakely MD Crystals LM Nom (Urine sed) NOT REPORTED Normal NONE [facility] Comment on above: Performed By: #### U AX, UMICAO #### [facility] [address] [place] [address] Psychiatrist: Andrew Blakely MD Epithelial, Renal NOT REPORTED Normal 0 [facility] Comment on above: Performed By: #### U AX, UMICAO #### [facility] [address] [place] [address] Psychiatrist: Andrew Blakely MD Mucus Strands NOT REPORTED Normal NONE [facility] Comment on above: Performed By: #### U AX, UMICAO #### [facility] [address] [place] [address] Psychiatrist: Andrew Blakely MD Other Observations NOT REPORTED Normal NREQ [facility] Comment on above: Performed By: #### U AX, UMICAO #### [facility] [address] [place] [address] Psychiatrist: Andrew Blakely MD Trichomonas NOT REPORTED Normal NONE [facility] Comment on above: Performed By: #### U AX, UMICAO #### [facility] [address] [place] [address] Psychiatrist: Andrew Blakely MD Yeast NOT REPORTED Normal [facility] Comment on above: Performed By: #### U AX, UMICAO #### [facility] [address] [place] [address] Psychiatrist: Andrew Blakely MD COMPREHENSIVE METABOLIC PANE [facility] 07-27-2021 Albumin [Mass/Vol] 4.4 g/dL Normal 3.6-5.1 [facility] Comment on above: Performed By: #### 1 016, 867 #### [facility] [place] [address] News Agent: Matt Beasley MD Albumin/Globulin [Mass ratio] 1.8 {ratio} Normal 1.0-2.5 [facility] Comment on above: Performed By: #### 1 0165, 867 #### [facility] [place] [address] News Agent: Matt Beasley MD ALP [Catalytic activity/Vol] 67 U/L Normal 37-153 [facility] Comment on above: Performed By: #### 1 0165, 867 #### [facility] [place] [address] News Agent: Matt Beasley MD ALT [Catalytic activity/Vol] 10 U/L Normal 6-29 [facility] Comment on above: Performed By: #### 1 016, 867 #### [facility] [place] [address] News Agent: Matt Beasley MD AST [Catalytic activity/Vol] 17 U/L Normal 10-35 [facility] Comment on above: Performed By: #### 1 0165, 867 #### [facility] [place] [address] News Agent: Matt Beasley MD Bilirubin [Mass/Vol] 0.4 mg/dL Normal 0.2-1.2 [facility] Comment on above: Performed By: #### 1 016, 867 #### [facility] [place] [address] News Agent: Matt Beasley MD Calcium [Mass/Vol] 9.8 mg/dL Normal 8.6-10.4 [facility] Comment on above: Performed By: #### 1 016, 867 #### [facility] of [address] [address] News Agent: Matt Beasley MD Chloride [Moles/Vol] 104 mmol/L Normal 98-110 [facility] Comment on above: Performed By: #### 1 164, 867 #### [facility] [place] [address] News Agent: Matt Beasley MD CO2 [Moles/Vol] 25 mmol/L Normal 20-32 [facility] Comment on above: Performed By: #### 1 016, 867 #### [facility] [place] [address] News Agent: Matt Beasley MD Creatinine [Mass/Vol] 1.37 mg/dL High 0.60-0.[address] [facility] Comment on above: Result Comment: For patients >49 years of age, the reference limit for Creatinine is approximately 13% higher for people identified as -[place]. Performed By: #### 1 164, 867 #### [facility] [place] [address] News Agent: Matt Beasley MD eGFR NON-AFR. MAC[place] 36 mL/min/1.73m2 Low > OR = 60 [facility] Comment on above: Performed By: #### 1 164, 867 #### [facility] [place] [address] News Agent: Matt Beasley MD GFR/1.73 sq M.predicted among blacks MDRD (S/P/Bld) [Vol rate/Area] 41 mL/min/{1.73_m2} Low > OR = 60 [facility] Comment on above: Performed By: #### 1 164, 867 #### [facility] [place] [address] News Agent: Matt Beasley MD Globulin (S) [Mass/Vol] 2.5 g/dL Normal 1.9-3.7 [facility] Comment on above: Performed By: #### 1 164, 867 #### [facility] [place] [address] News Agent: Matt Beasley MD Glucose [Mass/Vol] 97 mg/dL Normal 65-99 [facility] Comment on above: Result Comment: Fasting reference interval Performed By: #### 1 0165, 867 #### [facility] [place] [address] News Agent: Matt Beasley MD Potassium [Moles/Vol] 5.3 mmol/L Normal 3.5-5.[address] [facility] Comment on above: Performed By: #### 1 0165, 867 #### [facility] [place] [address] News Agent: Matt Beasley MD Protein [Mass/Vol] 6.9 g/dL Normal 6.1-8.1 [facility] Comment on above: Performed By: #### 1 0165, 867 #### [facility] [place] [address] News Agent: Matt Beasley MD Sodium [Moles/Vol] 137 mmol/L Normal 135-146 [facility] Comment on above: Performed By: #### 1 0165, 867 #### [facility] [place] [address] News Agent: Matt Beasley MD Urea nitrogen [Mass/Vol] 25 mg/dL Normal 7-25 [facility] Comment on above: Performed By: #### 1 0165, 867 #### [facility] [place] [address] News Agent: Matt Beasley MD Urea nitrogen/Creatinine [Mass ratio] 18 mg/mg Normal 6-22 [facility] Comment on above: Performed By: #### 1 0165, 867 #### [facility] [place] [address] News Agent: Matt Beasley MD LIPID PANEL, [place] [address] Cholesterol [Mass/Vol] 159 mg/dL Normal <200 [facility] Comment on above: Performed By: #### 1 164, 867 #### [facility] [place] [address] News Agent: Matt Beasley MD Cholesterol in HDL [Mass/Vol] 63 mg/dL Normal > OR = 50 [facility] Comment on above: Performed By: #### 1 164, 867 #### [facility] [place] [address] News Agent: Matt Beasley MD Cholesterol in LDL [Mass/Vol] [...] LDL-C. Sawyer YIP et al. TORY. 2013;310(19): 6733-2924 (http://[email or web address].Brandma.co/faq/TWJ948) Performed By: #### 1 164, 867 #### [facility] [place] [address] News Agent: Matt Beasley MD Cholesterol.total/Cho lesterol in HDL [Mass ratio] 2.5 {ratio} Normal <5.0 [facility] Comment on above: Performed By: #### 1 164, 867 #### [facility] [place] [address] News Agent: Matt Beasley MD NON HDL CHOLESTEROL 96 mg/dL (calc) Normal <130 [facility] Comment on above: Result Comment: For patients with diabetes plus 1 major ASCVD risk factor, treating to a non-HDL-C goal of <100 mg/dL (LDL-C of <70 mg/dL) is considered a therapeutic option. Performed By: #### 1 016, 867 #### [facility] [address] [place] [address] News Agent: Matt Beasley MD Triglyceride [Mass/Vol] 156 mg/dL High <150 [facility] Comment on above: Performed By: #### 1 0165, 867 #### [facility] [address] [place] [address] News Agent: Matt Beasley MD UA w/Reflex Cultureon 2020 Bilirubin, SemiQt,Ur Negative Normal NEG [facility] Comment on above: Performed By: #### U AX, UMICAO #### [address] [address] Psychiatrist: Andrew Blakely MD Blood, Urine Negative Normal NEG [facility] Comment on above: Performed By: #### U AX, UMICAO #### [facility] [address] [place] [address] Psychiatrist: Andrew Blakely MD Clarity (U) CLEAR Normal CLEAR [facility] Comment on above: Performed By: #### U AX, UMICAO #### [facility] [address] [place] [address] Psychiatrist: Andrew Blakely MD Color (U) YELLOW Normal YEL [facility] Comment on above: Performed By: #### U AX, UMICAO #### [facility] [address] [place] [address] Psychiatrist: Andrew Blakely MD Glucose Ql (U) Negative Normal NEG [facility] Comment on above: Performed By: #### U AX, UMICAO #### [facility] [address] [place] [address] Psychiatrist: Andrew Blakely MD Ketones Ql (U) Negative Normal NEG [facility] Comment on above: Performed By: #### U AX, UMICAO #### [facility] [address] [place] [address] Psychiatrist: Andrew Blakely MD Leukocyte esterase Test strip Ql (U) MODERATE Abnormal NEG [facility] Comment on above: Performed By: #### U AX, UMICAO #### [facility] [address] [place] [address] Psychiatrist: Andrew Blakely MD Nitrite,Ur Negative Normal NEG [facility] Comment on above: Performed By: #### U AX, UMICAO #### [facility] [address] [place] [address] Psychiatrist: Andrew Blakely MD PH,Ur 6.5 Normal 5.0-8.0 [facility] Comment on above: Performed By: #### U AX, UMICAO #### [facility] [address] [place] [address] Psychiatrist: Andrew Blakely MD Protein Ql (U) Negative Normal NEG [facility] Comment on above: Performed By: #### U AX, UMICAO #### [address] [address] Psychiatrist: Andrew Blakely MD Spec. [place],Ur 1.006 Normal 1.005-1.030 [facility] Comment on above: Performed By: #### U AX, UMICAO #### [facility] [address] [place] [address] Psychiatrist: Andrew Blakely MD Urobilinogen,Ur Normal Normal NORM [facility] Comment on above: Performed By: #### U AX, UMICAO #### [facility] [address] [place] [address] Psychiatrist: Andrew Blakely MD Comment NOT REPORTED Normal [facility] Comment on above: Performed By: #### U AX, UMICAO #### [facility] [address] [place] [address] Psychiatrist: Andrew Blakely MD Urinalysis,Microon 1 ----- Normal [facility] Comment on above: Performed By: #### U AX, UMICAO #### [facility] [address] [place] [address] Psychiatrist: Andrew Blakely MD Bacteria MANY Abnormal NONE [facility] Comment on above: Performed By: #### U AX, UMICAO #### [facility] [address] [place] [address] Psychiatrist: Andrew Blakely MD Epithelial cells LM Ql (Urine sed) 0 TO 2 Normal 0-[address] [place] [address] Comment on above: Performed By: #### U AX, UMICAO #### [address] [address] Psychiatrist: Andrew Blakely MD Urine RBC's 0 TO 2 Normal 0-2 [facility] Comment on above: Performed By: #### U AX, UMICAO #### [address] [address] Psychiatrist: Andrew Blakely MD Urine WBC's 2 TO 5 Normal 0-[address] [place] [address] Comment on above: Performed By: #### U AX, UMICAO #### [facility] [address] [place] [address] Psychiatrist: Andrew Blakely MD Amorphous sediment LM Ql (Urine sed) NOT REPORTED Normal [facility] Comment on above: Performed By: #### U AX, UMICAO #### [facility] [address] [place] [address] Psychiatrist: Andrew Blakely MD Casts NOT REPORTED Normal 0-2 [facility] Comment on above: Performed By: #### U AX, UMICAO #### [facility] [address] [place] [address] Psychiatrist: Andrew Blakely MD Crystals LM Nom (Urine sed) NOT REPORTED Normal NONE [facility] Comment on above: Performed By: #### U AX, UMICAO #### [facility] [place] [address] Psychiatrist: Andrew Blakely MD Epithelial, Renal NOT REPORTED Normal 0 [facility] Comment on above: Performed By: #### U AX, UMICAO #### [facility] [address] [place] [address] Psychiatrist: Andrew Blakely MD Mucus Strands NOT REPORTED Normal NONE [facility] Comment on above: Performed By: #### U AX, UMICAO #### [facility] [address] [place] [address] Psychiatrist: Andrew Blakely MD Other Observations NOT REPORTED Normal NREQ [facility] Comment on above: Performed By: #### U AX, UMICAO #### [facility] [address] [place] [address] Psychiatrist: Andrew Blakely MD Trichomonas NOT REPORTED Normal NONE [facility] Comment on above: Performed By: #### U AX, UMICAO #### [facility] [address] [place] [address] Psychiatrist: Andrew Blakely MD Yeast NOT REPORTED Normal NONE [facility] Comment on above: Performed By: #### U AX, UMICAO #### [facility] [address] [place] [address] Psychiatrist: Andrew Blakely MD Vital Signs Date Time Vital Sign Value Performing Clinician Facility 07-08-2023 11:00-0400 Body height 149.86 cm Albin Bonner Other [facility] Other 07-08-2023 11:00-0400 Body mass index (BMI) [Ratio] 26.17 kg/m2 Albin Englands Other [facility] Other 07-08-2023 11:00-0400 Body temperature 96.5 [degF] Azjulio Bakhous Other [facility] Other 07-08-2023 11:00-0400 Body weight 58.79 kg Albin Englands Other [facility] Other 07-08-2023 11:00-0400 Diastolic blood pressure 80 mm[Hg] Albin Erazohous Other [facility] Other 07-08-2023 11:00-0400 Respiratory rate 18 /min Albin Englands Other [facility] Other 07-08-2023 11:00-0400 SaO2% (BldA) [Mass fraction] 96 % Albin Englands Other [facility] Other 07-08-2023 11:00-0400 Systolic blood pressure 140 mm[Hg] Albin Englands Other [facility] Other 01-21-2023 11:20-0500 Body height 149.86 cm Albin Erazohous Other [facility] Other 01-21-2023 11:20-0500 Body mass index (BMI) [Ratio] 25.85 kg/m2 Aziz Bakhous Other [facility] Other 01-21-2023 11:20-0500 Body weight 58.06 kg Albin Erazohous Other [facility] Other 01-21-2023 11:20-0500 Diastolic blood pressure 73 mm[Hg] Aziz Bakhous Other [facility] Other 01-21-2023 11:20-0500 Respiratory rate 18 /min Aziz Bakhous Other [facility] Other 01-21-2023 11:20-0500 SaO2% (BldA) [Mass fraction] 98 % Aziz Bakhous Other [facility] Other 01-21-2023 11:20-0500 Systolic blood pressure 121 mm[Hg] Aziz Bakhous Other [facility] Other 09-17-2022 15:40-0400 Body height 149.86 cm Aziz Bakhous Other [facility] Other 09-17-2022 15:40-0400 Body mass index (BMI) [Ratio] 24.6 kg/m2 Aziz Bakhous Other [facility] Other 09-17-2022 15:40-0400 Body temperature 97.1 [degF] Aziz Bakhous Other [facility] Other 09-17-2022 15:40-0400 Body weight 55.25 kg Aziz Bakhous Other [facility] Other 09-17-2022 15:40-0400 Diastolic blood pressure 78 mm[Hg] Aziz Bakhous Other [facility] Other 09-17-2022 15:40-0400 Respiratory rate 18 /min Aziz Bakhous Other [facility] Other 09-17-2022 15:40-0400 SaO2% (BldA) [Mass fraction] 99 % Aziz Bakroberts Other [facility] Other 09-17-2022 15:40-0400 Systolic blood pressure 140 mm[Hg] Aziz Bakhous Other [facility] Other 04-23-2022 15:40-0400 Body height 149.86 cm Aziz Bakhous Other [facility] Other 04-23-2022 15:40-0400 Body mass index (BMI) [Ratio] 22.94 kg/m2 Aziz Bakhous Other [facility] Other 04-23-2022 15:40-0400 Body temperature 96.4 [degF] Aziz Bakhous Other [facility] Other 04-23-2022 15:40-0400 Body weight 51.53 kg Aziz Bakhous Other [facility] Other 04-23-2022 15:40-0400 Diastolic blood pressure 82 mm[Hg] Aziz Bakhous Other [facility] Other 04-23-2022 15:40-0400 Respiratory rate 18 /min Aziz Bakhous Other [facility] Other 04-23-2022 15:40-0400 SaO2% (BldA) [Mass fraction] 99 % Aziz Bakhous Other [facility] Other 04-23-2022 15:40-0400 Systolic blood pressure 149 mm[Hg] Albin Bonner Other [facility] Other Encounters Encounter Date Encounter Type Care Provider Facility Start: 04-05-2024 End: 04-06-2024 ambulatory ROCHELLE ONEIL Not Available Start: 02-25-2024 End: 02-26-2024 ambulatory EL[facility]IRA [facility] Start: 01-12-2024 Bamboo flowsheet Soraida snelltrick [employer] Work Phone: [facility] Start: 01-12-2024 Bamboo flowsheet Soraida Bowman zpatrick [employer] Work Phone: [facility] Start: 01-12-2024 Patient encounter procedure Soraida Bethea [employer] Work Phone: [facility] Start: 01-12-2024 End: 01-12-2024 ambulatory SORAIDA BETHEA Not Available Start: 01-05-2024 End: 01-05-2024 ambulatory Albin Bonner Other [facility] Other Start: 01-05-2024 Refill Elmira Brown DO Work Phone: [facility] Comment on above: 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, without long-term current use of insulin, unspecified CKD stage ([facility]) Start: 01-05-2024 Telephone encounter Albin Bonner [facility] Start: 12-03-2023 End: 12-03-2023 ambulatory SORAIDA BETHEA Not Available Start: 11-19-2023 End: 11-19-2023 ambulatory [facility] Start: 09-10-2023 Telephone encounter Albin Bonner [facility] Start: 09-10-2023 End: 09-10-2023 ambulatory DHEERAJ WHITEHEAD [facility] Other Start: 08-27-2023 End: 08-28-2023 [facility] Start: 07-08-2023 End: 07-08-2023 ambulatory Azjulio Bakroberts Other [facility] Other Start: 07-08-2023 Office outpatient visit 25 minutes Aziz Bakroberts [facility] [place] Start: 05-07-2023 End: 05-07-2023 ambulatory [facility] Start: 04-16-2023 End: 04-16-2023 ambulatory [facility] Start: 03-17-2023 End: 03-18-2023 ambulatory DHEERAJ WHITEHEAD Facility:[facility] Start: 03-12-2023 End: 03-13-2023 ambulatory DHEERAJ WHITEHEAD Facility:[facility] Start: 03-12-2023 End: 03-12-2023 ambulatory [facility] Start: 03-10-2023 End: 03-11-[address] ONEL WALTERS Facility:[facility] Start: 02-05-2023 End: 02-06-[address] DOCTOR ALBRIGHT Facility:[facility] Start: 01-24-2023 End: 01-24-2023 Subsequent hospital visit by physician Jam Maya MD Work Phone: [facility] Comment on above: History of ovarian c ancer Start: 01-22-2023 End: 01-22-2023 ambulatory Albin Bonner Other [facility] Other Start: 01-22-2023 Telephone encounter Azjulio Englands [facility] Start: 01-21-2023 End: 01-21-2023 ambulatory Albin Englands Other [facility] Other Start: 01-21-2023 Office outpatient visit 25 minutes Aziz Bakroberts [facility] [place] Start: 01-13-2023 End: 01-13-[address] DOCTOR ALBRIGHT Facility:[facility] Start: 01-13-2023 End: 01-14-[address] DOCTOR ALBRIGHT Facility:[facility] Start: 11-08-2022 End: 11-08-[address] ZACHARY WARE Facility:[facility] Start: 09-17-2022 End: 09-17-2022 ambulatory Albin Bonner Other [facility] Other Start: 09-17-2022 Office outpatient visit 25 minutes Aziz Bakroberts [facility] Neph[facility] Start: 09-10-2022 End: 09-11-[address] DOCTOR ALBRIGHT Facility:[facility]1 Start: 08-21-2022 End: 08-22-2022 ambulatory KATHARINA JOVEL Facility:[facility]1 Start: 07-10-2022 End: 07-10-2022 Subsequent hospital visit by physician Zachary Ware Work Phone: [facility] Comment on above: 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 Start: 06-05-2022 End: 06-06-[address] ZACHARY WARE Facility:H1 Start: 05-29-2022 End: 05-30-[address] ZACHARY WARE Facility:[facility]1 Start: 05-06-2022 End: 05-07-[address] ZACHARY WARE Facility:[facility]1 Start: 04-23-2022 End: 04-23-2022 ambulatory Albin Bonner Other [employer] Other Start: 04-23-2022 Office outpatient ne w 30 minutes Azjulio Bakroberts [facility] Start: 03-27-2022 End: 03-27-2022 Subsequent hospital visit by physician Zachary Ware Work Phone: [facility] Start: 09-26-2021 End: 09-27-2021 ambulatory [facility] C[facility] Start: 09-26-2021 End: 09-26-2021 Subsequent hospital visit by physician Zachary Ware Work Phone: [facility] ILDA Carter Comment on above: Borderline epithelia l neoplasm of ovary; Gross hematuria Start: 07-18-2021 End: 07-19-2021 ambulatory [facility] CUEV[facility] Procedures Date Procedure Procedure Detail Performing Clinician Start: 01-24-2023 Immunoassay tumor an tigen quantitative ca 125 Fide Antonina Melissa DO Work Phone: Start: 07-10-2022 Immunoassay tumor [...] CI AUD [address] [place] [address] [facility] Start: 01-12-2024 End: 01-12-2024 Patient encounter procedure 01/12/2024 11:00 AM EST Office Visit [facility] [address] [place] [address] Soraida Bethea NP [address] [place] [address] Arrived [facility] Comment on above: Arrived Start: 05-08-2023 Hemoglobin A1c measurement Diabetes: Hemoglobin A1C [facility] Start: 01-31-2023 End: 01-31-2023 Patient encounter procedure 01/31/2023 Office Visit Gynecologic Oncology Jam Warren MD [address] [facility] [address] [place] [address] [facility] [employer]ASCADE OPERATOR Oncology Start: 01-05-2023 Creatinine measurement Creatinine [facility] Start: 01-05-2023 Potassium [Moles/volume] in Serum or Plasma Potassium [facility] [employer] Start: 08-01-2022 Influenza vaccination [facility] Start: 07-17-2022 End: 07-17-2022 Patient encounter procedure 07/17/2022 Office Visit Gynecologic Oncology Jam Warren MD [address] [facility] [address] [place] [address] [facility] CASCADE OPERATOR Oncology Start: 07-01-2022 Influenza vaccination Flu vaccine (# 1) JOSÉ MIGUEL [facility] Start: 01-23-2022 End: 01-23-2022 Patient encounter procedure 01/23/2022 Office Visit Gynecologic Oncology Anabel Cuevas MD [address] [facility] [address] [place] [address] [phone] [facility] [employer]ASCADE OPERATOR Oncology Start: 01-02-2022 End: 01-02-2022 Patient encounter procedure 01/02/2022 Office Visit Gynecologic Oncology Anabel Cuevas MD [address] [facility] [address] [place] [address] [phone] [facility] CASCADE OPERATOR Oncology Start: 08-01-2021 Influenza vaccination Flu vaccine (# 1) [facility] [employer] Work Phone: Start: 06-12-2021 Annual Wellness Visi t (AWV) Annual Wellness Visit (AWV) [facility] [employer] Start: 09-01-2009 Pneumococcal Vaccine : 65+ Years (2 - PCV) Pneumococcal Vaccine: 65+ Years (2 - PCV) [facility] Start: 2003 Pneumococcal 65+ yea rs Vaccine (1 of 1 - PPSV23) Pneumococcal 65+ years Vaccine (1 of 1 - PPSV23) [facility] Phone: Start: 1993 Screening for osteoporosis DEXA (modify frequency per FRAX score) [facility] Start: 1988 Shingles Vaccine (1 of 2) Shingles Vaccine (1 of 2) [facility] Start: 1957 DTaP/Tdap/Td vaccine (1 - Tdap) DTaP/Tdap/Td vaccine (1 - Tdap) [facility] Start: 1950 COVID-19 Vaccine (1) COVID-19 Vaccin e (1) [facility] Work Phone: Start: 1950 Depression Screen Depression Screen [facility] Start: 1948 Glaucoma screening Diabetes: R etinopathy Screening [facility] Start: 1948 Lipid panel [facility] Start: 1944 Pneumococcal 65+ yea rs Vaccine (1 - PCV) Pneumococcal 65+ years Vaccine (1 - PCV) [facility] Start: 1943 COVID-19 Vaccine (1) COVID-19 Vaccin e (1) [facility] Start: 1938 COVID-19 Vaccine (#1) COVID-19 Vacci ne (#1) [facility] Start: 1938 Annual Wellness Visi t (AWV) Annual Wellness Visit (AWV) [facility] Start: 1938 Creatinine measurement Creatinine mo nitoring [facility] Phone: Start: 1938 Medicare Annual Wellness (AWV) Medicare Annual Wellness (AWV) [facility] Start: 1938 Potassium monitoring Potassium monit oring [facility] Work Phone: Immunizations Immunization Date Immunization Notes Care Provider Juventino carballo 09-15-2023 Influenza, Seasonal, Quadrivalent, Adjuvanted Soraida Bethea [employer]OGA TE[employer] Work Phone: [facility] 01-13-2023 diphtheria, tetanus toxoids and pertussis vaccine Elmira Fredy DO Work Phone: [facility] 09-02-2022 Influenza, High-dose Seasonal, Quadrivalent, Preservative Free Elmira Fredy DO Work Phone: [facility] 10-18-2021 Moderna SARS-CoV-2 Vaccination Elmira Fredy DO Work Phone: [facility] Work Phone: 05-11-2021 tetanus toxoid, redu lety diphtheria toxoid, and acellular pertussis vaccine, adsorbed Soraida Turciostrick [employer]OGA TEACHER Work Phone: [facility] 02-01-2021 Moderna SARS-CoV-2 Vaccination Elmira Fredy DO Work Phone: [facility] 01-04-2021 Moderna SARS-CoV-2 Vaccination Elmira Fredy DO Work Phone: [facility] 11-21-2020 Influenza, High-dose Seasonal, Quadrivalent, Preservative Free Soraida Turciostrick [employer] TE[employer]ER Work Phone: [facility] 09-01-2008 pneumococcal polysaccharide vaccine, 23 valent Soraida Turciostrick [employer] TE[employer]ER Work Phone: [facility] Payers Date Payer Category Payer Medicare [employer] MEDICARE ADVANTAGE [employer] MEDICARE [id number] 2021-Present [address] [address] [place] [address] [id number] 2000 Medicare MEDICARE MEDICAR E PART A AND B [id number] 2000-Present [phone] [place] [address] [id number] 1959 Medicare [id number] [id number] .[id number] 1938 Unknown [id number] 2.16.840.1.652578.3.579.2.175 1938 Unknown [id number] 2.16.840.1.652098.3.579.2.175 1938 Unknown [id number] 2.16.840.1.641035.3.579.2.593 1938 Unknown [id number] 2.16.840.1.190587.3.579.2.593 1938 Unknown [id number] 2.16.840.1.068057.3.579.2.593 1938 Unknown [id number] 2.16.840.1.680671.3.579.2.593 1938 Unknown [id number] 2.16.840.1.998388.3.579.2.593 1938 Unknown [id number] 2.16.840.1.246563.3.579.2.593 1938 Unknown [id number] 2.16.840.1.185961.3.579.2.593 1938 Unknown [id number] 2.16.840.1.199731.3.579.2.593 1938 Unknown [id number] 2.16.840.1.477671.3.579.2.593 1938 Unknown [id number] 2.16.840.1.861887.3.579.2.593 1938 Unknown [id number] 2.16.840.1.533180.3.579.2.593 1938 Unknown [id number] 2.16.840.1.462397.3.579.2.593 1938 Unknown [id number] 2.16.840.1.764855.3.579.2.593 1938 Unknown [id number] 2.16.840.1.624608.3.579.2.593 1938 Unknown [id number] 2.16.840.1.850871.3.579.2.173 1938 Unknown [id number] 2.16.840.1.741305.3.579.2.173 1938 Unknown [id number] 2.16.840.1.250651.3.579.2.125 9 1938 Unknown [id number] 2.16.840.1.626911.3.579.2.125 9 1938 Unknown [id number] 2.16.840.1.365369.3.579.2.125 9 1938 Unknown [id number] 2.16.840.1.604865.3.579.2.125 9 Social History Date Type Detail Facility Start: 09-26-2021 End: 04-20-2023 Tobacco smoking status SDIS Never smoker [employer] Phone: Start: 09-26-2021 End: 04-20-2023 Tobacco use and exposure Never used [facility] Start: 1940 Sex Assigned At Not on file [facility] Phone: Exposure to SARS-CoV-2 (event) Not sure [facility] Start: 09-08-2023 Sex Assigned At [employer] Other Start: 12-03-2023 Alcohol intake Current drinke r of alcohol (finding) [facility] Start: 09-08-2023 History of Social function [facility] Start: 05-10-2023 Alcohol Comment caffeine intak e: none [facility] NEGATED: Highlighted rowStart: NINF History of tobacco use Passive smoker [facility] Medical Equipment Procedure Code Equipment Code Equipment Origin al Text Equipment Identifier Dates Check fasting glucose once daily [id number] Start: 08-20-2023 Inject 1 Lancet under the skin in the morning. [id number] Start: 08-20-2023 Clinical Notes 04-23-2022 to 01-05-2024 Note Date & Type Note Facility 01-05-2024 Evaluation note Encounter Date Diagnosis Assessment Notes Jan, Primary hypertension (ICD-10 - I10) [employer] Other [id number] [facility] - [facility] Yisel Rodriguez is a 83 y.o. year old [...] is an 81-year-old woman who moved from [place] in May 2021. She is known to [...] then discharged. She was evaluated at the [facility] cardiology service and she was planned to [...] filling defects in the pulmonary circulation. Jean Acrlos calcifications noted. Echocardiogram 08/30/2021: LV systolic function [...] 3. Moderately elevated right-sided filling pressures. 4. Uovxijpb-at-urnvvw elevation of the left-sided filling pressures. 5. Preserved cardiac output and cardiac index. 6. Moderate to severe mitral valve stenosis. 7. Moderate aortic valve stenosis. Visit of 09/06/2022: She is seen in follow-up. Recently she was seen in the office and an echocardiogram was ordered. There is suggested possibly severe aort (more content not included)...[facility]10-11-2023 NoteCardiovascular Medicine [facility] SUBJECTIVE Chief Complaint Patient presents with Congestive [...] is an 81-year-old woman who moved from [place] in May 2021. She is known to [...] then discharged. She was evaluated at the [facility] cardiology service and she was planned to [...] then to her calves. Is now resolved. [place] like a muscle cramp. Was worse with walking. Denies any accompanied warmth or redness. Also, since last seen she was seen at [facility] ER with c/o fall, she feel [...] salt and fluid intake. She follows with supplemental nurse Dr. Bonner [facility] - [phone] Patient Active Problem List Diagnosis Chronic diastolic [...] Date Abnormal ECG Arrhythm (more content not included)...[facility] 09-10-2023 NotePatient here c/o LE edema, [...] pain. All other systems reviewed and are negative.[facility] 07-08-2023 Evaluation note* Encounter Date Diagnosis [...] and she follows with cardiology clinic in [place] Jul, Diabetes type 2, no ocular involvement [...] - R31.9) follows with urology clinic in [facility] [employer] Other 06-07-2023 NotePatient here for 3 week [...] pain. All other systems reviewed and are negative.[facility] 05-07-2023 NoteCardiovascular Medicine [place] [facility] SUBJECTIVE Chief Complaint Patient presents with [...] is an 81-year-old woman who moved from [place] in May 2021. She is known to [...] then discharged. She was evaluated at the [facility] cardiology service and she was planned to [...] then to her calves. Is now resolved. [place] like a muscle cramp. Was worse with walking. Denies any accompanied warmth or redness. Also, since last seen she was seen at [facility] ER with c/o fall, she feel [...] Cigarettes Smokeless tobacco: Never (more content not included)...[facility]05-17-2023 NotePatient is here today for a one month follow up Review of Systems Constitutional: Positive for weight gain. Cardiovascular: Positive for leg swelling. Skin: Positive for rash. Musculoskeletal: Positive for back pain and joint pain. All other systems reviewed and are negative.[facility] 04-16-2023 NoteCardiovascular Medicine [place] [facility] SUBJECTIVE Chief Complaint Patient presents with [...] is an 81-year-old woman who moved from [place] in May 2021. She is known to [...] then discharged. She was evaluated at the [facility] cardiology service and she was planned to [...] then to her calves. Is now resolved. [place] like a muscle cramp. Was worse with walking. Denies any accompanied warmth or redness. Also, since last seen she was seen at [facility] ER with c/o fall, she feel [...] syncope. OBJECTIVE Visit Vitals (more content not included)...[facility]04-12-2023 Note Yesy is here today to follow up on [...] pain in L>R calf. Pain is better now.[facility]04-12-2023 Note Cardiovascular Medicine [place] [facility] SUBJECTIVE Chief Complaint Patient presents with [...] is an 81-year-old woman who moved from [place] in May 2021. She is known to [...] then discharged. She was evaluated at the [facility] cardiology service and she was planned to [...] then to her calves. Is now resolved. [place] like a muscle cramp. Was worse with walking. Denies any accompanied warmth or redness. Also, since last seen she was seen at [facility] ER with c/o fall, she feel [...] every day by oral (more content not included)...[facility]02-22-2023 Evaluation note* Encounter Date Diagnosis Assessment Notes Treatment Notes Treatment Clinical Notes Jan, Hyperkalemia (ICD-10 - E87.5) [employer] Other [id number] Evaluation note* Encounter Date Diagnosis Assessment Notes [...] and she follows with cardiology clinic in [place] Jan, Diabetes type 2, no ocular involvement [...] given handout of high K food at [employer]. [employer] Other 10-18-2022 Evaluation note* Encounter Date Diagnosis [...] and she follows with cardiology clinic in [place] Aug, Diabetes type 2, no ocular involvement [...] I will continue to monitor uric acid. 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 Patient said her diabetes well controlled. 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 documented in this encounter JOSÉ MIGUEL [employer] Phone: [email or web address] note* Diagnosis History of ovarian cancer Personal history of malignant neoplasm of ovary documented in this encounter JOSÉ MIGUEL [employer] Phone: [email or web address] noteNo InformationNolaf[facility] [employer] Other Evaluation note* Diagnosis Type 2 diabetes [...] REMOVAL OF OVARIES Hospitalization History SEE ABOVE [employer] Other Summary Purpose Family History No Family [...] section and content) DATE CREATED AUTHOR 09/27/2021 [facility] DATE CREATED AUTHOR AUTHOR'S ORGANIZ ATION 01/22/2022 [facility] DATE CREATED AUTHOR AUTHOR'S ORGANIZ ATION 02/18/2022 [facility] DATE CREATED AUTHOR AUTHOR'S ORGANIZ ATION 06/11/2022 [facility] DATE CREATED AUTHOR AUTHOR'S ORGANIZ ATION 10/14/2022 [facility] dical Specialist DATE CREATED AUTHOR AUTHOR'S ORGANIZ ATION 03/20/2023 [facility] DATE CREATED AUTHOR AUTHOR'S ORGANIZ ATION 02/27/2024 [facility] DATE CREATED AUTHOR AUTHOR'S ORGANIZ ATION 02/27/2024 [facility] DATE CREATED AUTHOR AUTHOR'S ORGANIZ ATION 04/11/2024 [facility] dical Specialists [facility] Care Teams (unrecognized sec tion and content) Staff Command And Control Officer Relationship Specialty Start Date End Date Zachary Ware [address] [place] [address] PCP - General Family Medicine 09/26/21 Staff Command And Control Officer Relationship Specialty [place] [address] [place] [address] PCP - General Gynecological Oncology 07/17/22 Staff Command And Control Officer Relationship Specialty Start Date End Date Elmira Brown DO [address] [place] [address] PCP - [employer] 05/31/21 Elmira Brown DO [address] [place] [address] PCP - General Family Medicine 04/09/23 Staff Command And Control Officer Relationship Specialty Start Date End Date Elmira Brown DO [address] [place] [address] PCP - [employer] 05/31/21 Lexy Mei MD [address] [place] [address] PCP - General Family Medicine 01/12/24 Soraida Bethea NP [address] [place] [address] Nurse Practitioner Family Medicine 01/12/24 REASON FOR [...] BE BASED ON THE PRIMARY CLINICAL RECORDS. [facility]. provides no warranty or guarantee of the accuracy or completeness of information in this document.
== END 2024-05-03 12:45 | disposition home or self-care (01) ==
LOC: CARD 12:44
PROVIDERS: Visit Provider Internal Medicine Interventional Cardiology
DX: I35.0 Nonrheumatic aortic (valve) stenosis (principal); I50.32 Chronic diastolic (congestive) heart failure; I34.0 Nonrheumatic mitral (valve) insufficiency
CPT/HCPCS: 93306

== ENCOUNTER 2024-07-12 11:57 | Outpatient (OUT) | payer MEDICARE, SELFPAY ==
--- OUTSIDE RECORDS SUMMARY | 2024-07-12 12:22 | XMS_ITS | CCD ---
Author Organization [facility] Informat ion Partnership [facility] Care Team Providers Care Batch Weigher Name Role Phone Zachary Boyle Primary Care Provider ANABEL DUNCAN Referring Unavailable ANABEL DUNCAN Referring Unavailable ZACHARY BOYLE Primary Care Unavailable Albin Bonner Unavailable Zachary Boyle Primary Care Provider Kelvin Maya MD, [place] Primary Care Provider [place], DR ZACHARY Bermudez Primary Care Unavailable FURLONG, DR ZACHARY Bermudez Consulting Unavailable FURLONG, DR ZACHARY Bermudez Attending Unavailable FURLONG, DR ZACHARY Bermudez Admitting Unavailable HERNDON, DR CHARIS Maya Consulting Unavailable MISC, DR [...] Primary Care Unavailable DHEERAJ WHITEHEAD Admitting Unavailable VENTURABARBARADHEERAJ Consulting Unavailable DHEERAJ WHITEHEAD Attending Unavailable FURLONG, DR ZACHARY Bermudez Primary Care Unavailable MOUKARBEL, DR SYKES Consulting Unavailable MOUKARBEL, DR SYKES Attending Unavailable MOUKARBEL, DR SYKES Admitting Unavailable VENTURA, DHEERAJ Admitting Unavailable ELA GASPAR Consulting Unavailable MISC, DR DENNISON Primary Care Unavailable DHEERAJ WHITEHEAD Attending Unavailable VENTURA, DHEERAJ Consulting Unavailable FURLONG, DR ZACHARY Bermudez Primary Care Unavailable PAY ., DR GARCIA Attending Unavailable PAY ., DR GARCIA Admitting Unavailable PAY ., DR GARCIA Consulting Unavailable MISC, DR DENNISON Primary Care Unavailable HAY ., DR JOHANSEN Attending Unavailable HAY ., DR JOHANSEN Admitting Unavailable HAY ., DR JOHANSEN Consulting Unavailable MAYORAUL Consulting Unavailable VENTURA, DHEERAJ Admitting Unavailable MISC, DR DENNISON Primary Care Unavailable MISC, DR DENNISON Consulting Unavailable VENTURADHEERAJ KUMARI Attending Unavailable VENTURADHEERAJ KUMARI Consulting Unavailable MOUKARBEL, [...] Unavailable Fredy DO, Elmira G Unavailable Fredy DO, Elmira G Primary Care Provider Lexy Mei MD Primary Care Provider Neema PAIZ, Soraida Lopez Unavailable KOLBO, IMAN Referring Unavailable FREDY, ELMIRA Primary Care Unavailable FREDY, ELMIRA Primary Care Unavailable ELVER OSEGUERASA Referring Unavailable DHEERAJ WHITEHEAD Attending Unavailable MOUKANICHOELONEL Attending Unavailable MOUKARBELONEL Attending Unavailable BETHEASORAIDA SWEET Attending Unavailab ROCHELLE Adams Attending Unavailable ROCHELLE ONEIL Referring Unavailable SORAIDA BETHEA Attending Unavailab le SORAIDA BETHEA Referring Unavailab DIMPLE Long Attending Unavailable SORAIDA BETHEA Referring Unavailab MAMIE Rascon Attending Unavailable SORAIDA BETHEA Referring Unavailab KATHARINA Yañez Attending Unavailable SORAIDA BETHEA Referring Unavailab MAMIE Rascon Attending Unavailable BETHEASORAIDA SWEET Referring Unavailab MAMIE Rascon Attending Unavailable SORAIDA BETHEA Referring Unavailab ROCHELLE Adams Attending Unavailable Medications Current Medications Medication Drug [...] daily 0 07/07/2021 Active sodium zirconium cyclosilicate 78518 mg powder for oral suspension (5 sources) [...] disease (2 sources) Atherosclerotic heart disease of [place] coronary artery without angina pectoris; Translations: [Atherosclerotic heart disease of [place] coronary artery without angina pectoris] Onset: 05-27-2024 Chronic Diabetes mellitus with complications (2 sources) [...] (3 sources) Hyperkalemia Episodic Heart valve disorders (20 sources) Nonrheumatic aortic (valve) stenosis; Translations: [Combined [...] Translations: [Postmenopausal bleeding] Onset: 09-26-2021 09-26-2021 Chronic Nonspecific chest pain (1 source) Chest pain, unspecified; Translations: [CHEST PAIN UNSPECIFIED] Onset: 03-17-2023 Episodic Nutritional deficiencies (10 sources) Vitamin D deficiency; Translations: [Vitamin D deficiency, unspecified] Onset: 01-15-2023 Chronic Other aftercare (1 source) Other long term care pharmacist (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; Translations: [OTH FIELD SUPPORT ENGINEER CURRENT DRUG THERAPY] Onset: 01-15-2023 Episodic Other aftercare (1 source) senior care (current) use of anticoagulants; Translations: [FIELD SUPPORT ENGINEER CURRNT USE ANTICOAGULANTS] Onset: 01-15-2023 Episodic Other connective tissue disease (1 source) Pain in right leg; Translations: [PAIN IN RIGHT LEG] Onset: 03-20-2023 Episodic Other connective tissue disease (1 source) Pain in left leg; Translations: [PAIN IN LEFT LEG] Onset: 03-20-2023 Episodic Other ear and sense organ disorders [...] behavior of unspecified ovary] Onset: 07-18-2021 Episodic Other acquired deformities (1 source) Lumbar spondylolisthesis; Translations: [Spondylolisthesis, lumbar region] Onset: 04-20-2015 01-12-2024 Episodic Other and unspecified benign neoplasm (1 source) Serous cystadenoma of left ovary; Translations: [Benign neoplasm of left ovary] Onset: 11-21-2020 01-12-2024 Episodic Other connective tissue disease (2 sources) [...] Value Interpretation Reference Range Facility Office Visiton 05-27-2024 Follow-up visit [id number] Mary Rodriguez 1940 F Date Provider Department Center 05/27/2024 ONEL JONES [facility] Family History Problem Relation Age of Onset Heart attack Mother Heart attack Brother Family Status - Relation Status Age at Mother Brother Level of Service:09917 [place] OFFICE/OUTPATIENT ESTABLISHED LOW MDM 20 MIN Normal [facility] XR CERVICAL SPINE AP/LAT/FLE X/EXTon 05-26-2024 XR CERVICAL SPINE AP/LAT/FLEX/EXT FINDINGS: Severe disc space loss mild posterior moderate anterior osteophyte formation C5-C6 (2 mm retrolisthesis). Moderate diffuse facet arthropathy. Flexion and extension: C1-2 through C4-5: Normal alignment, no change. C5-C6: 2mm retrolisthesis, no change. C6-C7: Normal alignment, no change. IMPRESSION: Diffuse arthritis, greatest involvement C5-C6, no motion on flexion and extension. TRANSCRIBED BY: ELECTRONICALLY SIGNED BY: Skyler Yanez MD Normal Not Available [place] 125on 02-26-2024 CA 125 9 U/mL Normal 0-38 [facility] Comment on above: Result Comment: The Jorje ECLIA assay is used. Results obtained with different assay methods cannot be used interchangeably. Performed By: #### C A125 #### [facility] [address] [place] [address] Mortgage Banker: Andrew Blakely MD 36on 02-25-2024 36 Regarding BMP from 02/23/2024: MD Dona Anderson MA Please have her reduce furosemide from 40 mg twice daily to 40 mg in the morning and 20 mg in the afternoon. Get a BMP in 1 month. Spoke with patient's niece and made her aware. BMP order faxed to [facility]. She verbalized understanding to have repeat BMP in 1 month after furosemide reduction. [facility] Office Visiton 11-19-2023 Follow-up visit [id number] Mary Rodriguez 1940 F Date Provider Department Center 11/19/2023 ONEL JONES [facility] Family History Problem Relation Age of Onset Heart attack Mother Heart attack Brother Family Status - Relation Status Age at Mother Brother Level of Service:21807 [place] OFFICE/OUTPATIENT ESTABLISHED MOD MDM 30 MIN [facility] 36on 09-19-2023 36 Yes, okay to take both. They are different classes of mediation. The dose of Jardiance is for her heart failure. She will need to continue to monitor her blood sugar at home and let PCP or us know if they start running low. Thanks [facility] 36on 09-15-2023 36 Please send Rx for farxiga 10mg daily to her pharmacy. If this is not covered by insurance then we can try Jardiance 10mg daily instead. F/U as scheduled. Thanks! [facility] BI MAMMOGRAM SCREENING TOMOS YNTHESIS BILATERALon 09-15-2023 [...] Not Available Office Visiton 09-10-2023 Follow-up visit [id number] Mary Rodriguez 1940 F Date Provider Department Center 09/10/2023 DHEERAJ CARNEY [facility] Family History Problem Relation Age of Onset Heart attack Mother Heart attack Brother Family Status - Relation Status Age at Mother Brother Level of Service:86714 [place] OFFICE/OUTPATIENT ESTABLISHED MOD MDM 30-39 MIN Reason for Visit and Comments: Congestive Heart Failure [127] Shortness of Breath [884285] Normal [facility] 36on 09-09-2023 36 I see she has an robson t with me tomorrow for SOB, leg swelling, weight gain. Please have her increase her lasix to 40mg BID. Thank you Normal [facility] [place] 125on 08-27-2023 CA 125 9 U/mL Normal <38 [facility] Comment on above: Result Comment: The Jorje ECLIA assay is used. Results obtained with different assay methods cannot be used interchangeably. Performed By: #### C A125 #### [facility] [address] [place] [address] Mortgage Banker: Andrew Blakely MD PROF CHEM 8 (BAS METB)on Anion gap [Moles/Vol] 13.7 mmol/L Normal [facility] Comment on above: Performed By: #### C MP, URIC #### [facility] [address] [address] [address] Hussein Camacho Calcium [Mass/Vol] 9.7 mg/dL Normal 8.5-10.1 [facility] Comment on above: Performed By: #### C MP, URIC #### [facility] [address] [address] [address] Hussein Camacho Chloride [Moles/Vol] 100 mmol/L Normal 98-107 [facility] Comment on above: Performed By: #### C MP, URIC #### [facility] [address] [address] [address] Hussein Camacho CO2 [Moles/Vol] 29.9 mmol/L Normal 21.0-32.0 [facility] Comment on above: Performed By: #### C MP, URIC #### [facility] [address] [address] [address] Hussein Camacho Creatinine [Mass/Vol] 1.87 mg/dL Critically high 0.55-1.02 [facility] Comment on above: Performed By: #### C MP, URIC #### [facility] [address] [address] [address] Hussein Camacho EGFR-AF CANADIAN 31 mL/min/1.73m2 Critically low >=60 [facility] Comment on above: Performed By: #### C MP, URIC #### [facility] [address] [address] [address] Hussein Camacho EGFR-NON AF CANADIAN 26 mL/min/1.73m2 Critically low >=60 [facility] Comment on above: Performed By: #### C MP, URIC #### [facility] [address] [address] [address] Hussein Camacho Glucose [Mass/Vol] 146 mg/dL Critically high 74-106 [facility] Comment on above: Performed By: #### C MP, URIC #### [facility] [address] [address] [address] Hussein Camacho Potassium [Moles/Vol] 4.6 mmol/L Normal 3.5-5.1 [facility] Comment on above: Performed By: #### C MP, URIC #### [facility] [address] [address] [address] Hussein Camacho Sodium [Moles/Vol] 139 mmol/L Normal 136-145 [facility] Comment on above: Performed By: #### C MP, URIC #### [facility] [address] [address] [address] Hussein Camacho Urea nitrogen [Mass/Vol] 67.0 mg/dL Critically high 7.0-18.0 [facility] Comment on above: Performed By: #### C MP, URIC #### [facility] [address] [address] [address] Hussein Camacho Urea nitrogen/Creatinine [Mass ratio] 35.8 mg/mg Normal [facility] Comment on above: Performed By: #### C MP, URIC #### [facility] [address] [place] [address] Dr. Hussein Camacho US TRANG DOP LEG [...] ELA GASPAR Date: 2023-03-17 17:00 Normal [facility] BNPon 03-12-2023 Natriuretic peptide B (Bld) [Mass/Vol] 3283.0 pg/mL Critically high <=1,800.0 [facility] Comment on above: Performed By: #### C MP, URIC #### [facility] [address] [place] [address] Dr. Hussein Camacho D-DIMERon 03-12-2023 D-DIMER 1.34 mg/L FEU Critically high <=0.59 [facility] Comment on above: Performed By: #### C MP, URIC #### [facility] [address] [place] [address] Dr. Hussein Camacho D-DIMER COMMENTS SEE BELOW Normal [facility] Comment on above: Result Comment: Incr eases [...] Performed By: #### C MP, URIC #### [facility] [address] [place] [address] Dr. Hussein Camacho PROF CHEM 8 (BAS METB)on Anion gap [Moles/Vol] 12.4 mmol/L Normal [facility] Comment on above: Performed By: #### C MP, URIC #### [facility] [address] [place] [address] Dr. Hussein Camacho Calcium [Mass/Vol] 9.6 mg/dL Normal 8.5-10.1 [facility] Comment on above: Performed By: #### C MP, URIC #### [facility] [address] [place] [address] Dr. Hussein Camacho Chloride [Moles/Vol] 104 mmol/L Normal 98-107 [facility] Comment on above: Performed By: #### C MP, URIC #### [facility] [address] [place] [address] Dr. Hussein Camacho CO2 [Moles/Vol] 29.6 mmol/L Normal 21.0-32.0 [facility] Comment on above: Performed By: #### C MP, URIC #### [facility] [address] [place] [address] Dr. Hussein Camacho Creatinine [Mass/Vol] 1.55 mg/dL Critically high 0.55-1.02 [facility] Comment on above: Performed By: #### C MP, URIC #### [facility] [address] [place] [address] Dr. Hussein Camacho EGFR-AF [place]NADI[place] 39 mL/min/1.73m2 Critically low >=60 [facility] Comment on above: Performed By: #### C MP, URIC #### [facility] [address] [address] [address] Hussein Camacho EGFR-NON AF CANADIAN 32 mL/min/1.73m2 Critically low >=60 [facility] Comment on above: Performed By: #### C MP, URIC #### [facility] [address] [address] [address] Hussein Camacho Glucose [Mass/Vol] 128 mg/dL Critically high 74-106 [facility] [place] Comment on above: Performed By: #### C MP, URIC #### [facility] [address] [place] [address] Dr. Hussein Camacho Potassium [Moles/Vol] 3.9 mmol/L Normal 3.5-5.1 [facility] Comment on above: Performed By: #### C MP, URIC #### [facility] [address] [place] [address] Dr. Hussein Camacho Sodium [Moles/Vol] 142 mmol/L Normal 136-145 [facility] Comment on above: Performed By: #### C MP, URIC #### [facility] [address] [place] [address] Dr. Hussein Camacho Urea nitrogen [Mass/Vol] 49.0 mg/dL Critically high 7.0-18.0 [facility] Comment on above: Performed By: #### C MP, URIC #### [facility] [address] [place] [address] Dr. Hussein Camacoh Urea nitrogen/Creatinine [Mass ratio] 31.6 mg/mg Normal [facility] Comment on above: Performed By: #### C MP, URIC #### [facility] [address] [place] [address] Dr. Hussein Camacho ECHOCARDIO M/2D COMPLETEon 0 03-10-2023 ECHOCARDIO M/2D COMPLETE Patient Name Site Name YESY RODRIGUEZ [facility] Account No Medical Record Number Age Sex Date Time [id number] [facility]:[id number] F 03/10/2023 14:44 At the Request Of ONEL RWIGHT ECHOCARDIOGRAM REPORT PROCEDURE: CARDIO PULMONARY ECHOCARDIO M/2D [...] Area (VTI): 0.61 cm2, 0.62 cm2 Deceleration [place]: 1.84 m/s2 Pressure Half-Time: 571.86 ms Peak [...] 42.00 ml, 36.18 ml Dictated by: Onel Wright M.D. on 03/10/2023 at 16:50 Approved by: Onel Wright M.D. on 03/10/2023 at 17:00 [facility] GLYCOHEMOGLOBIN A1Con 2022 ADA RECOMMENDATION SEE BELOW Normal [facility] Comment on above: Result Comment: ADA RECOMMENDED LIMIT 4.0 - 6.0 ADA THERAPEUTIC TARGET < 7.0 ACTION SUGGESTED > 7.0 Performed By: #### A 1C #### [facility] [address] [place] [address] Dr. Hussein Camacho Glucose [Mass/Vol] 154 mg/dL Normal [facility] Comment on above: Performed By: #### A 1C #### [facility] [address] [place] [address] Dr. Hussein Camacho HbA1c (Bld) [Mass fraction] 7.0 % Critically high 4.5-6.2 [facility] Comment on above: Performed By: #### A 1C #### [facility] [address] [place] [address] Dr. Hussein Camacho PROF CHEM 8 (BAS METB)on Anion gap [Moles/Vol] 8.3 mmol/L Normal [facility] Comment on above: Performed By: #### C MP, URIC #### [facility] [address] [place] [address] Dr. Hussein Camacho Calcium [Mass/Vol] 9.1 mg/dL Normal 8.5-10.1 [facility] Comment on above: Performed By: #### C MP, URIC #### [facility] [address] [place] [address] Dr. Hussein Camacho Chloride [Moles/Vol] 106 mmol/L Normal 98-107 [facility] Comment on above: Performed By: #### C MP, URIC #### [facility] [address] [place] [address] Dr. Hussein Camacho CO2 [Moles/Vol] 28.2 mmol/L Normal 21.0-32.0 [facility] Comment on above: Performed By: #### C MP, URIC #### [facility] [address] [place] [address] Dr. Hussein Camacho Creatinine [Mass/Vol] 1.04 mg/dL Critically high 0.55-1.02 [facility] Comment on above: Performed By: #### C MP, URIC #### [facility] [address] [place] [address] Dr. Hussein Camacho EGFR-AF CANADIAN >60 Normal >=60 [facility] Comment on above: Performed By: #### C MP, URIC #### [facility] [address] [address] [address] Hussein Camacho EGFR-NON AF [place]NADIAN 50 mL/min/1.73m2 Critically low >=60 [facility] Comment on above: Performed By: #### C MP, URIC #### [facility] [address] [address] [address] Hussein Camacho Glucose [Mass/Vol] 122 mg/dL Critically high 74-106 [facility] [place] Comment on above: Performed By: #### C MP, URIC #### [facility] [address] [address] [address] Hussein Camacho Potassium [Moles/Vol] 4.5 mmol/L Normal 3.5-5.1 [facility] Comment on above: Performed By: #### C MP, URIC #### [facility] [address] [address] [address] Hussein Camacho Sodium [Moles/Vol] 138 mmol/L Normal 136-145 [facility] Comment on above: Performed By: #### C MP, URIC #### [facility] [address] [address] [address] Hussein Camacho Urea nitrogen [Mass/Vol] 33.0 mg/dL Critically high 7.0-18.0 [facility] Comment on above: Performed By: #### C MP, URIC #### [facility] [address] [place] [address] Dr. Hussein Camacho Urea nitrogen/Creatinine [Mass ratio] 31.7 mg/mg Normal [facility] Comment on above: Performed By: #### C MP, URIC #### [facility] [address] [place] [address] Dr. Hussein Camacho [place] 125on 01-24-2023 Cancer Ag 125 Qn 9 [arb'U]/mL NINF - 38 U/mL [facility] Comment on above: The Jorje ECLIA as say is used. Results obtained with different assay methods cannot be used interchangeable. [facility] CT HEAD WO CONon 01-13-2023 CT HEAD [...] SKYLER MEYER Date: 2023-01-13 13:33 Normal [facility] PROF 14(COMP METB)on 023 Albumin [Mass/Vol] 4.3 g/dL Normal 3.4-5.0 [facility] Comment on above: Performed By: #### C MP #### [facility] [address] [place] [address] Dr. Hussein Camacho Albumin/Globulin [Mass ratio] 1.2 {ratio} Normal [facility] Comment on above: Performed By: #### C MP #### [facility] [address] [place] [address] Dr. Hussein Camacho ALP [Catalytic activity/Vol] 96 U/L Normal 46-116 [facility] Comment on above: Performed By: #### C MP #### [facility] [address] [place] [address] Dr. Hussein Camacho ALT [Catalytic activity/Vol] 43 U/L Normal 14-59 [facility] Comment on above: Performed By: #### C MP #### [facility] [address] [place] [address] Dr. Hussein Camacho Anion gap [Moles/Vol] 13.2 mmol/L Normal [facility] Comment on above: Performed By: #### C MP #### [facility] [address] [place] [address] Dr. Hussein Camacho AST [Catalytic activity/Vol] 30 U/L Normal 15-37 [facility] Comment on above: Performed By: #### C MP #### [facility] [address] [address] [address] Hussein Camacho Bilirubin [Mass/Vol] 0.7 mg/dL Normal 0.2-1.0 [facility] Comment on above: Performed By: #### C MP #### [facility] [address] [place] [address] Dr. Hussein Camacho Calcium [Mass/Vol] 9.7 mg/dL Normal 8.5-10.1 [facility] Comment on above: Performed By: #### C MP #### [facility] [address] [address] [address] Hussein Camacho Chloride [Moles/Vol] 105 mmol/L Normal 98-107 [facility] Comment on above: Performed By: #### C MP #### [facility] [address] [place] [address] Dr. Hussein Camacho CO2 [Moles/Vol] 28.5 mmol/L Normal 21.0-32.0 [facility] Comment on above: Performed By: #### C MP #### [facility] [address] [address] [address] Hussein Camacho Creatinine [Mass/Vol] 1.48 mg/dL Critically high 0.55-1.02 [facility] Comment on above: Performed By: #### C MP #### [facility] [address] [place] [address] Dr. Hussein Camacho EGFR-AF [place]NADI[place] 41 mL/min/1.73m2 Critically low >=60 [facility] Comment on above: Performed By: #### C MP #### [facility] [address] [place] [address] Dr. Hussein Camacho EGFR-NON AF [place] 34 mL/min/1.73m2 Critically low >=60 [facility] Comment on above: Performed By: #### C MP #### [facility] [address] [address] [address] Hussein Camacho Globulin (S) [Mass/Vol] 3.6 g/dL Normal [facility] Comment on above: Performed By: #### C MP #### [facility] [address] [address] [address] Hussein Camacho Glucose [Mass/Vol] 140 mg/dL Critically high 74-106 [facility] Comment on above: Performed By: #### C MP #### [facility] [address] [address] [address] Hussein Camacho Potassium [Moles/Vol] 5.7 mmol/L Critically high 3.5-5.1 [facility] Comment on above: Performed By: #### C MP #### [facility] [address] [place] [address] Dr. Hussein Camacho Protein [Mass/Vol] 7.9 g/dL Normal 6.4-8.2 [facility] Comment on above: Performed By: #### C MP #### [facility] [address] [place] [address] Dr. Hussein Camacho Sodium [Moles/Vol] 141 mmol/L Normal 136-145 [facility] Comment on above: Performed By: #### C MP #### [facility] [address] [place] [address] Dr. Hussein Camacho Urea nitrogen [Mass/Vol] 42.0 mg/dL Critically high 7.0-18.0 [facility] Comment on above: Performed By: #### C MP #### [facility] [address] [place] [address] Dr. Hussein Camacho Urea nitrogen/Creatinine [Mass ratio] 28.4 mg/mg Normal [facility] Comment on above: Performed By: #### C MP #### [facility] [address] [place] [address] Dr. Hussein Camacho MRI Shoulder w/o Lefton [...] by Boaz Weeks on 10/14/2022 1541 Normal [facility] PTH INTACTon 09-12-2022 PTH, Intact 46 pg/mL Normal 15-65 [facility] Comment on above: Performed By: #### P THINT #### [facility] [address] [place] [address] Dr. Hussein Camacho CBC AUTO DIFFon 09-10-2022 BASO # 0.1 103/ul Normal 0.0-0.1 [facility] Comment on above: Performed By: #### C BC #### [facility] [address] [place] [address] Dr. Hussein Camacho Basophils/100 WBC (Bld) 0.8 % Normal 0.2-2.0 [facility] Comment on above: Performed By: #### C BC #### [facility] [address] [place] [address] Dr. Hussein Camacho EO # 0.3 103/ul Normal 0.0-0.7 [facility] Comment on above: Performed By: #### C BC #### [facility] [address] [place] [address] Dr. Hussein Camacho Eosinophils/100 WBC (Bld) 3.3 % Normal 0.9-7.0 [facility] Comment on above: Performed By: #### C BC #### [facility] [address] [place] [address] Dr. Hussein Camacho Erythrocyte distribution width (RBC) [Ratio] 13.6 % Normal 11.0-15.0 [facility] Comment on above: Performed By: #### C BC #### [facility] [address] [place] [address] Dr. Hussein Camacho Hematocrit (Bld) [Volume fraction] 41.5 % Normal 36.0-48.0 [facility] Comment on above: Performed By: #### C BC #### [facility] [address] [place] [address] Dr. Hussein Camacho Hemoglobin (Bld) [Mass/Vol] 13.5 g/dL Normal 12.0-16.0 [facility] Comment on above: Performed By: #### C BC #### [facility] [address] [place] [address] Dr. Hussein Camacho IG # 0.03 10e3/ul Normal 0.00-0.03 [facility] Comment on above: Performed By: #### C BC #### [facility] [address] [place] [address] Dr. Hussein Camacho IG % 0.3 % Normal 0.0-0.5 [facility] Comment on above: Performed By: #### C BC #### [facility] [address] [place] [address] Dr. Hussein Camacho LYMPH # 1.3 103/ul Normal 1.2-3.8 [facility] Comment on above: Performed By: #### C BC #### [facility] [address] [place] [address] Dr. Hussein Camacho Lymphocytes/100 WBC (Bld) 12.7 % Critically low 20.5-60.0 [facility] Comment on above: Performed By: #### C BC #### [facility] [address] [place] [address] Dr. Hussein Camacho MANUAL DIFF REQ NO Normal [facility] Comment on above: Performed By: #### C BC #### [facility] [address] [place] [address] Dr. Hussein Camacho MCH (RBC) [Entitic mass] 31.4 pg Normal 26.7-34.0 [facility] Comment on above: Performed By: #### C BC #### [facility] [address] [place] [address] Dr. Hussein Camacho MCHC (RBC) [Mass/Vol] 32.5 g/dL Normal 29.9-35.2 [facility] Comment on above: Performed By: #### C BC #### [facility] [address] [place] [address] Dr. Hussein Camcaho MCV (RBC) [Entitic vol] 96.5 fL Normal 81.0-99.0 [facility] Comment on above: Performed By: #### C BC #### [facility] [address] [place] [address] Dr. Hussein Camacho MONO # 0.9 103/ul Critically high 0.3-0.8 [facility] Comment on above: Performed By: #### C BC #### [facility] [address] [place] [address] Dr. Hussein Camacho Monocytes/100 WBC (Bld) 9.0 % Normal 1.7-12.0 [facility] Comment on above: Performed By: #### C BC #### [facility] [address] [place] [address] Dr. Hussein Camacho NEUT # 7.5 103/ul Critically high 1.4-6.5 [facility] Comment on above: Performed By: #### C BC #### [facility] [address] [place] [address] Dr. Hussein Camacho Neutrophils/100 WBC (Bld) 73.9 % Normal 43.0-75.0 [facility] Comment on above: Performed By: #### C BC #### [facility] [address] [place] [address] Dr. Hussein Camacho Platelet mean volume (Bld) [Entitic vol] 10.6 fL Normal 9.5-13.5 [facility] Comment on above: Performed By: #### C BC #### [facility] [address] [place] [address] Dr. Hussein Camacho PLT 287 103/ul Normal 150-450 [facility] Comment on above: Performed By: #### C BC #### [facility] [address] [place] [address] Dr. Hussein Camacho RBC 4.30 106/ul Normal 4.20-5.40 [facility] Comment on above: Performed By: #### C BC #### [facility] [address] [place] [address] Dr. Hussein Camacho WBC 10.2 103/ul Normal 4.0-11.0 [facility] Comment on above: Performed By: #### C BC #### [facility] [address] [place] [address] Dr. Hussein Camacho PROF 14(COMP METB)on 022 Albumin [Mass/Vol] 4.3 g/dL Normal 3.4-5.0 [facility] Comment on above: Performed By: #### C MP, URIC #### [facility] [address] [place] [address] Dr. Hussein Camacho Albumin/Globulin [Mass ratio] 1.1 {ratio} Normal [facility] Comment on above: Performed By: #### C MP, URIC #### [facility] [address] [place] [address] Dr. Hussein Camacho ALP [Catalytic activity/Vol] 102 U/L Normal 46-116 [facility] Comment on above: Performed By: #### C MP, URIC #### [facility] [address] [place] [address] Dr. Hussein Camacho ALT [Catalytic activity/Vol] 47 U/L Normal 14-59 [facility] Comment on above: Performed By: #### C MP, URIC #### [facility] [address] [place] [address] Dr. Hussein Camacho Anion gap [Moles/Vol] 12.4 mmol/L Normal [facility] Comment on above: Performed By: #### C MP, URIC #### [facility] [address] [place] [address] Dr. Hussein Camacho AST [Catalytic activity/Vol] 23 U/L Normal 15-37 [facility] Comment on above: Performed By: #### C MP, URIC #### [facility] [address] [place] [address] Dr. Hussein Camacho Bilirubin [Mass/Vol] 0.4 mg/dL Normal 0.2-1.0 [facility] Comment on above: Performed By: #### C MP, URIC #### [facility] [address] [place] [address] Dr. Hussein Camacho Calcium [Mass/Vol] 9.2 mg/dL Normal 8.5-10.1 [facility] Comment on above: Performed By: #### C MP, URIC #### [facility] [address] [place] [address] Dr. Hussein Camacho Chloride [Moles/Vol] 102 mmol/L Normal 98-107 [facility] Comment on above: Performed By: #### C MP, URIC #### [facility] [address] [place] [address] Dr. Hussein Camacho CO2 [Moles/Vol] 28.5 mmol/L Normal 21.0-32.0 [facility] Comment on above: Performed By: #### C MP, URIC #### [facility] [address] [place] [address] Dr. Hussein Camacho Creatinine [Mass/Vol] 1.55 mg/dL Critically high 0.55-1.02 [facility] Comment on above: Performed By: #### C MP, URIC #### [facility] [address] [place] [address] Dr. Hussein Camacho EGFR-AF CANADIAN 39 mL/min/1.73m2 Critically low >=60 [facility] Comment on above: Performed By: #### C MP, URIC #### [facility] [address] [place] [address] Dr. Hussein Camacho EGFR-NON AF CANADIAN 32 mL/min/1.73m2 Critically low >=60 [facility] Comment on above: Performed By: #### C MP, URIC #### [facility] [address] [address] [address] Hussein Caamcho Globulin (S) [Mass/Vol] 3.9 g/dL Normal [facility] Comment on above: Performed By: #### C MP, URIC #### [facility] [address] [address] [address] Hussein Camacho Glucose [Mass/Vol] 160 mg/dL Critically high 74-106 [facility] [place] Comment on above: Performed By: #### C MP, URIC #### [facility] [address] [place] [address] Dr. Husesin Camacho Potassium [Moles/Vol] 3.9 mmol/L Normal 3.5-5.1 [facility] Comment on above: Performed By: #### C MP, URIC #### [facility] [address] [place] [address] Dr. Hussein Camacho Protein [Mass/Vol] 8.2 g/dL Normal 6.4-8.2 [facility] Comment on above: Performed By: #### C MP, URIC #### [facility] [address] [place] [address] Dr. Hussein Camacho Sodium [Moles/Vol] 139 mmol/L Normal 136-145 [facility] Comment on above: Performed By: #### C MP, URIC #### [facility] [address] [place] [address] Dr. Hussein Camacho Urea nitrogen [Mass/Vol] 42.0 mg/dL Critically high 7.0-18.0 [facility] Comment on above: Performed By: #### C MP, URIC #### [facility] [address] [place] [address] Dr. Hussein Camacho Urea nitrogen/Creatinine [Mass ratio] 27.1 mg/mg Normal [facility] Comment on above: Performed By: #### C MP, URIC #### [facility] [address] [place] [address] Dr. Hussein Camacho UA RANDOMon 09-10-2022 Bilirubin Ql (U) Negative Normal NEGATIVE [facility] Comment on above: Performed By: #### U A #### [facility] [address] [place] [address] Dr. Hussein Camacho Clarity (U) CLEAR Normal CLEAR [facility] Comment on above: Performed By: #### U A #### [facility] [address] [place] [address] Dr. Hussein Camacho Color (U) LT. YELLOW Normal YELLOW [facility] Comment on above: Performed By: #### U A #### [facility] [address] [place] [address] Dr. Hussein Camacho Glucose Ql (U) Negative Normal NEGATIVE [facility] Comment on above: Performed By: #### U A #### [facility] [address] [place] [address] Dr. Hussein Camacho Hemoglobin Ql (U) TRACE-INTACT Abnormal NEGATIVE [facility] Comment on above: Performed By: #### U A #### [facility] [address] [place] [address] Dr. Hussein Camacho Ketones Ql (U) Negative Normal NEGATIVE [facility] Comment on above: Performed By: #### U A #### [facility] [address] [place] [address] Dr. Hussein Camacho LEUKOCYTES SMALL Abnormal NEGATIVE [facility] Comment on above: Performed By: #### U A #### [facility] [address] [place] [address] Dr. Hussein Camacho Nitrite Ql (U) Negative Normal NEGATIVE [facility] Comment on above: Performed By: #### U A #### [facility] [address] [place] [address] Dr. Hussein Camacho pH (U) 6.0 [pH] Normal 5-9 [facility] Comment on above: Performed By: #### U A #### [facility] [address] [place] [address] Dr. Hussein Camacho SPEC GRAVITY 1.020 Normal 1.005-<=1.02 5 [facility] Comment on above: Performed By: #### U A #### [facility] [address] [place] [address] Dr. Hussein Camacho UA PROTEIN Negative Normal NEGATIVE/ TRACE [facility] Comment on above: Performed By: #### U A #### [facility] [address] [place] [address] Dr. Hussein Camacho Urobilinogen Qn (U) 0.2 {Naina'U}/dL Normal 0.2 - 1. 0 [facility] Comment on above: Performed By: #### U A #### [facility] [address] [place] [address] Dr. Hussein Camacho URIC ACID SERUMon 09-10-2022 Urate [Mass/Vol] 7.5 mg/dL Critically high 2.6-6.0 [facility] Comment on above: Performed By: #### C MP, URIC #### [facility] [address] [place] [address] Dr. Hussein Camacho URINE T PROTEIN CREAT RATIOo n 09-10-2022 Protein (U) [Mass/Vol] 7.3 mg/dL Normal <=12.0 [facility] Comment on above: Performed By: #### U RTPCR #### [facility] [address] [place] [address] Dr. Hussein Camacho UR PROT CREAT RAT 0.13 Normal [facility] Comment on above: Performed By: #### U RTPCR #### [facility] [address] [place] [address] Dr. Hussein Camacho URINE CREAT 56.41 mg/dL Normal 20.00-300.00 [facility] Comment on above: Performed By: #### U RTPCR #### [facility] [address] [place] [address] Dr. Hussein Camacho VITAMIN D 25 OHon 09-10-2022 VIT D 25-OH 50.6 ng/mL Normal [facility] Comment on above: Performed By: #### V ITAD #### [facility] [address] [place] [address] Dr. Hussein Camacho VIT D RANGES SEE BELOW Normal [facility] Comment on above: Result Comment: <20 ng/mL Vit D deficient 20 - <30 ng/mL Vit D insufficient 30 - 100 ng/mL Vit D sufficient >100 ng/mL Potential Toxicity Performed By: #### V ITAD #### [facility] [address] [address] [address] Hussein Camacho ECHOCARDIO M/2D COMPLETEon 0 08-21-2022 ECHOCARDIO M/2D COMPLETE Patient: YESY RODRIGUEZ Exam Date: 08/21/2022 : 1940 Gender:F Ordering : KATHARINA ScottJulián MED Admission #: [id number] Family : DR GRIFFITHSDELIO BermudezJulián JOSEESTACIE Order #: [id number] CLICK HERE TO VIEW EXAM ECHOCARDIOGRAM REPORT [...] 33.05 ml, 33.05 ml Dictated by: Onel Wright M.D. on 08/23/2022 at 16:46 Approved by: Onel Wright M.D. on 08/23/2022 at 17:05 Normal [facility] CA 125on 07-10-2022 CA 125 8 U/mL NINF - 38 U/mL [facility] Comment on above: The Jorje ECLIA as say is used. Results obtained with different assay methods cannot be used interchangeable. [facility] ALBUMIN, RANDOM URINE W/CREA TININEon 06-11-2022 ALBUMIN, URINE 2.5 mg/dL Normal See Note: [facility] Comment on above: Order Comment: FASTI NG:YESFASTING: YES Result Comment: Refe rence Range: Reference Range Not established Performed By: #### 1 0165, 867 #### [facility] [address], [address] [place] [address] Processor Helper: Matt Beasley MD ALBUMIN/CREATININE RATIO, RANDOM URINE [...] a diagnostic category. Performed By: #### 1 0165, 867 #### [facility] [address], [address] [place] [address] Processor Helper: Matt Beasley MD Creatinine (U) [Mass/Vol] 64 mg/dL Normal 20-275 [facility] Comment on above: Order Comment: FASTI NG:YESFASTING: YES Performed By: #### 1 0165, 867 #### [facility] [address], [address] [place] [address] Processor Helper: Matt Beasley MD BASIC METABOLIC PANELon 05-31 Calcium [Mass/Vol] 10.0 mg/dL Normal 8.6-10.4 [facility] Comment on above: Performed By: #### 1 016, 867 #### [facility] [address] [place] [address] Processor Helper: Matt Beasley MD Chloride [Moles/Vol] 103 mmol/L Normal 98-110 [facility] Comment on above: Performed By: #### 1 016, 867 #### [facility] [address], [address] [place] [address] Processor Helper: Matt Beasley MD CO2 [Moles/Vol] 25 mmol/L Normal 20-32 [facility] Comment on above: Performed By: #### 1 016, 867 #### [facility] [place] [address] Processor Helper: Matt Beasley MD Creatinine [Mass/Vol] 1.43 mg/dL High 0.60-0.95 [facility] Comment on above: Performed By: #### 1 016, 867 #### [facility] [place] [address] Processor Helper: Matt Beasley MD GFR/1.73 sq M.predicted among non-blacks MDRD (S/P/Bld) [Vol rate/Area] 36 mL/min/{1.73_m2} Low > OR = 60 [facility] Comment on above: Result Comment: The eGFR is based on the CKD-EPI 2020 equation. To calculate the new eGFR from a previous Creatinine or Cystatin C result, go to https://www.kidney.org/professionals/ kdoqi/gfr%5Fcalculator Performed By: #### 1 016, 867 #### [facility] [place] [address] Processor Helper: Matt Beasley MD Glucose [Mass/Vol] 124 mg/dL High 65-99 [facility] Comment on above: Result Comment: Fasting reference interval For someone without known diabetes, a glucose value between 100 and 125 mg/dL is consistent with prediabetes and should be confirmed with a follow-up test. Performed By: #### 1 0165, 867 #### [facility] [address], [address] [place] [address] Processor Helper: Matt Beasley MD Potassium [Moles/Vol] 5.5 mmol/L High 3.5-5.[address] [facility] Comment on above: Performed By: #### 1 0165, 867 #### [facility] [address], [address] [place] [address] Processor Helper: Matt Beasley MD Sodium [Moles/Vol] 138 mmol/L Normal 135-146 [facility] Comment on above: Performed By: #### 1 0165, 867 #### [facility] [place] [address] Processor Helper: Matt Beasley MD Urea nitrogen [Mass/Vol] 43 mg/dL High 7-25 [facility] Comment on above: Performed By: #### 1 0165, 867 #### [facility] [place] [address] Processor Helper: Matt Beasley MD Urea nitrogen/Creatinine [Mass ratio] 30 mg/mg High 6-22 [facility] Comment on above: Performed By: #### 1 0165, 867 #### [facility] [place] [address] Processor Helper: Matt Beasley MD HEMOGLOBIN A1con 06-11-2022 HEMOGLOBIN [...] By: #### 1 0165, 867 #### [facility] [address], [address] [place] [address] Processor Helper: Matt Beasley MD ECHOCARDIO M/2D COMPLETEon 0 06-05-2022 ECHOCARDIO M/2D COMPLETE Patient: YESY RODRIGUEZ Exam Date: 06/05/2022 : 1940 Gender:F Ordering : DHEERAJ WHITEHEAD Admission #: [id number] Family : DR HUNT AidanJulián BRENTYESSICA Order #: [id number] CLICK HERE TO VIEW EXAM ECHOCARDIOGRAM REPORT [...] 2.45 mm[Hg] Right Atrium Dictated by: Onel Wright M.D. on 06/05/2022 at 13:06 Approved by: Onel Wright M.D. on 06/05/2022 at 13:14 Normal [facility] MAMM SCREEN 3D GIRMA CADon 05-29-2022 MAMM SCREEN 3D GIRMA CAD Patient: YESY RODRIGUEZ Exam Date: 05/29/2022 : 1940 Gender:F Ordering : DR ZACHARY BOYLE Admission #: [id number] Family : Order #: [id number] CLICK HERE TO VIEW EXAM RADIOLOGY REPORT [...] ovarian cancer at age 36. LOCATION: [facility] BREAST COMPOSITION: Heterogeneously dense,which may obscure [...] Schreiber MD on 06/11/2022 at 14:06 Normal [facility] PROF CHEM 8 (BAS METB)on Anion gap [Moles/Vol] 15.1 mmol/L Normal [facility] Comment on above: Performed By: #### B MP #### [facility] [address] [place] [address] Dr. Hussein Camacho Calcium [Mass/Vol] 9.6 mg/dL Normal 8.5-10.1 [facility] Comment on above: Performed By: #### B MP #### [facility] [address] [address] [address] Hussein Camacho Chloride [Moles/Vol] 103 mmol/L Normal 98-107 [facility] Comment on above: Performed By: #### B MP #### [facility] [address] [address] [address] Hussein Camacho CO2 [Moles/Vol] 26.0 mmol/L Normal 21.0-32.0 [facility] Comment on above: Performed By: #### B MP #### [facility] [address] [address] [address] Hussein Camacho Creatinine [Mass/Vol] 1.51 mg/dL Critically high 0.55-1.02 [facility] Comment on above: Performed By: #### B MP #### [facility] [address] [place] [address] Dr. Hussein Camacho EGFR-AF CANADIAN 40 mL/min/1.73m2 Critically low >=60 [facility] Comment on above: Performed By: #### B MP #### [facility] [address] [address] [address] Hussein Camacho EGFR-NON AF CANADIAN 33 mL/min/1.73m2 Critically low >=60 [facility] Comment on above: Performed By: #### B MP #### [facility] [address] [address] [address] Hussein Camacho Glucose [Mass/Vol] 120 mg/dL Critically high 74-106 [facility] [place] Comment on above: Performed By: #### B MP #### [facility] [address] [address] [address] Hussein Camacho Potassium [Moles/Vol] 5.1 mmol/L Normal 3.5-5.1 [facility] Comment on above: Performed By: #### B MP #### [facility] [address] [address] [address] Hussein Camacho Sodium [Moles/Vol] 139 mmol/L Normal 136-145 [facility] Comment on above: Performed By: #### B MP #### [facility] [address] [address] [address] Hussein Camacho Urea nitrogen [Mass/Vol] 40.0 mg/dL Critically high 7.0-18.0 [facility] Comment on above: Performed By: #### B MP #### [facility] [address] [address] [address] Hussein Camacho Urea nitrogen/Creatinine [Mass ratio] 26.5 mg/mg Normal [facility] Comment on above: Performed By: #### B MP #### [facility] [address] [address] [address] Hussein Camacho Basic Metabolic Panelon -2 Anion gap [Moles/Vol] 10 mmol/L 9 - 17 mmol/L [employer] [facility] Calcium [Mass/Vol] 9.8 mg/dL 8.6 - 10. 4 mg/dL [employer] [facility] Chloride [Moles/Vol] 104 mmol/L 98 - 10 7 mmol/L [employer] CO2 [Moles/Vol] 25 mmol/L 20 - 31 mmol/L [facility] Creatinine [Mass/Vol] 1.23 mg/dL High 0.50 - 0.90 mg/dL [facility] GFR 51 mL/min Low >60 [facility] GFR Non- 42 mL/min Low >60 [facility] Glucose [Mass/Vol] 133 mg/dL High 70 - 99 mg/dL [facility] Interpretation and review of laboratory results Abnormal [facility] Potassium [Moles/Vol] 4.2 mmol/L 3.7 - 5.3 mmol/L [facility] Sodium [Moles/Vol] 139 mmol/L 135 - 144 mmol/L [facility] Urea nitrogen (BldV) [Mass/Vol] 32 mg/dL High 8 - 23 mg/dL [facility] Urea nitrogen/Creatinine (Bld) [Mass ratio] 26 High [facility] - Chemistry and C hemistry - challengeon 03-27-2022 GFR/1.73 sq M.predicted MDRD (S/P/Bld) [Vol rate/Area] [facility] Comment on above: Average GFR for 70 o r more years old: 75 mL/min/1.73sq m Chronic Kidney Disease: <60 mL/min/1.73sq m Kidney failure: <15 mL/min/1.73sq m eGFR calculated using average adult body mass. Additional eGFR calculator available at: http://www.[employer]/multiple_crcl_2011.htm Stage 1: Some kidney damage normal GFR Stage 2: Mild kidney damage GFR 60-89 Stage 3: Moderate kidney damage GFR 30-59 Stage 4: Severe kidney damage GFR 15-29 Stage 5: Severe kidney damage GFR <15 ESRD - chronic treatment by dialysis or transplant BASIC METABOLIC PANELon Calcium [Mass/Vol] 10.1 mg/dL Normal 8.6-10.4 [facility] Comment on above: Performed By: #### 1 7306, 905, 26676, 718, 72786, 622, 54448, 499 #### [facility] [address] [facility], [address] [place] [address] Processor Helper: Matt Beasley MD Chloride [Moles/Vol] 100 mmol/L Normal 98-110 [facility] Comment on above: Performed By: #### 1 7306, 905, 41930, 718, 38053, 622, 11198, 496 #### [facility] [place] [address] Processor Helper: Matt Beasley MD CO2 [Moles/Vol] 28 mmol/L Normal 20-32 [facility] Comment on above: Performed By: #### 1 7306, 905, 98838, 718, 19472, 622, 65294, 496 #### [facility] [place] [address] Processor Helper: Matt Beasley MD Creatinine [Mass/Vol] 1.89 mg/dL High 0.60-0.88 [facility] Diagnostics Comment on above: Result Comment: For patients >49 years of age, the reference limit for Creatinine is approximately 13% higher for people identified as -Uzbek. Performed By: #### 1 7306, 905, 32418, 718, 91906, 622, 14142, 496 #### [facility] [place] [address] Processor Helper: Matt Beasley MD eGFR NON-AFR. CANADIAN 24 mL/min/1.73m2 Low > OR = 60 [facility] Comment on above: Performed By: #### 1 7306, 905, 47803, 718, 21711, 622, 46066, 496 #### [facility] [place] [address] Processor Helper: Matt Beasley MD GFR/1.73 sq M.predicted among blacks MDRD (S/P/Bld) [Vol rate/Area] 28 mL/min/{1.73_m2} Low > OR = 60 [facility] Comment on above: Performed By: #### 1 7306, 905, 72267, 718, 33907, 622, 41909, 496 #### [facility] [place] [address] Processor Helper: Matt Beasley MD Glucose [Mass/Vol] 123 mg/dL High 65-99 [facility] Comment on above: Result Comment: Fasting reference interval For someone without known diabetes, a glucose value between 100 and 125 mg/dL is consistent with prediabetes and should be confirmed with a follow-up test. Performed By: #### 1 7306, 905, 99347, 718, 89398, 622, 91516, 496 #### [facility] [place] [address] Processor Helper: Matt Beasley MD Potassium [Moles/Vol] 4.7 mmol/L Normal 3.5-5.3 [facility] Comment on above: Performed By: #### 1 7306, 905, 90521, 718, 33841, 622, 55652, 496 #### [facility] [place] [address] Processor Helper: Matt Beasley MD Sodium [Moles/Vol] 136 mmol/L Normal 135-146 [facility] Comment on above: Performed By: #### 1 7306, 905, 83931, 718, 22583, 622, 34579, 496 #### [facility] [place] [address] Processor Helper: Matt Beasley MD Urea nitrogen [Mass/Vol] 64 mg/dL High 7-25 [facility] Comment on above: Performed By: #### 1 7306, 905, 34764, 718, 19489, 622, 19111, 496 #### [facility] [place] [address] Processor Helper: Matt Beasley MD Urea nitrogen/Creatinine [Mass ratio] 34 mg/mg High 6-22 [facility] Comment on above: Performed By: #### 1 7306, 905, 58124, 718, 73883, 622, 79045, 496 #### [facility] [place] [address] Processor Helper: Matt Beasley MD HEMOGLOBIN A1con 03-05-2022 HEMOGLOBIN [...] #### 1 0165, 867 #### [facility] [address], [address] [place], [place] [id number] Processor Helper: Matt Beasley MD MAGNESIUMon 03-05-2022 Magnesium [Mass/Vol] 2.3 mg/dL Normal 1.5-2.5 [facility] Comment on above: Order Comment: FASTI NG:YES FASTING: YES Performed By: #### 1 7306, 905, 09542, 718, 91792, 622, 75695, 496 #### [facility] [address], [address] [place], [place] [address] Processor Helper: Matt Beasley MD PHOSPHATE ( PHOSPHORUS)on 03-05-2022 Phosphate [Mass/Vol] 4.5 mg/dL High 2.1-4.3 [facility] Comment on above: Performed By: #### 1 7306, 905, 49063, 718, 34091, 622, 80085, 496 #### [facility] [address], [address] [place], [place] [address] Processor Helper: Matt Beasley MD PTH, INTACT WITHOUT CALCIUMo [...] High Performed By: #### 1 7306, 905, 77704, 718, 57619, 622, 50180, 496 #### [facility] [address], [address] [place] [address] Processor Helper: Matt Beasley MD TSH W/REFLEX TO FT4on 2021 TSH W/REFLEX TO FT4 4.31 mIU/L Normal 0.40-4.50 [facility] Comment on above: Performed By: #### 1 7306, 905, 37635, 718, 44694, 622, 10550, 496 #### [facility] [address], [address] [place] [address] Processor Helper: Matt Beasley MD URIC ACIDon 03-05-2022 Urate [Mass/Vol] 8.7 mg/dL High 2.5-7.0 [facility] Comment on above: Result Comment: Ther apeutic target for gout patients: <6.0 mg/dL Performed By: #### 1 7306, 905, 16699, 718, 34813, 622, 45415, 496 #### [facility] [address], [address] [place] [address] Processor Helper: Matt Beasley MD VITAMIN D,25-OH,TOTAL,IAon 0 03-05-2022 [...] D, (D2,D3), LC/MS/MS is recommended: order code 68614 (patients >2yrs). See Note 1 Note 1 For additional information, please refer to [email or web address] (This link is being provided for informational/ educational purposes only.) Performed By: #### 1 7306, 905, 18565, 718, 75279, 622, 86275, 496 #### [facility] [address] [facility], [address] [place] [address] Processor Helper: Matt Beasley MD US carotid doppler BIon 01-02 US carotid doppler BI [facility] Main [place] [address] [place] [address] Ultrasound Report Signed Patient: Yesy Valadez MR#: [id number] 74 : 1940 Acct:[id number] Age/Sex: 81 / F ADM Date: 01/21/22 Loc: RT Room: Type: [facility] Attending Dr: Onel Wright MD Ordering Provider: Onel Wright MD Date of Service: 01/21/22 US/US carotid doppler BI: I65.23 Copies to: Onel Wright MD CAROTID DUPLEX INDICATION: Surveillance study, multiple [...] Kevon Hickman MD01/22/2022 12:41 PM Dictation Location: [place] [address] Tech: Alissa Arguello Transcribed By: DENIA 01/22/22 1241 Dictated By: Kevon Hickman MD 01/22/22 1241 Signed By: 01/22/22 1241 [facility] Complete Pulmonary Functiono n 01-21-2022 Complete Pulmonary Function [facility] [place] [address] Pulmonary Function Signed Patient: Yesy Valadez MR#: [id number] [birth year] : 1940 Acct:[id number] Age/Sex: 81 / F ADM Date: 01/21/22 Loc: RT Room: Type: [facility] Attending Dr: Onel Wright MD Ordering Provider: Onel Wright MD Date of Service: 01/21/22 Accession #: Copies to: MD Onel Alejandro MD HISTORY: This is an 81-year-old, 60-inch tall, 118-pound female, nonsmoker, referred by Dr. Onel Wright and normally followed by Dr. Zachary Boyle with the diagnosis of dyspnea. The patient [...] of 1.17 L or 83% predicted. The OEN61-01% was supranormal at 2.15 L/sec or 214% predicted with this all likely related to the inadequate duration of exhalation. After a 350% longer duration of exhalation on the postbronchodilator effort, the forced vital capacity did improve by 25% to 1.47 L or 76% predicted. There is actually a 14% decline in the FEV1 and a 60% decline in the CIO41-29%. LUNG VOLUMES: Lung volumes by plethysmography indicate [...] Bucio MD 01/21/22 1240 Signed By: 01/22/22 2611 [facility] CREATININE BLOODon 2 Creatinine [Mass/Vol] 1.04 mg/dL Normal 0.60-1.20 [facility] Comment on above: Order Comment: No: D o not add to previous draw Performed By: #### 2 5656 #### [facility] [address] [place] [address], [facility] eGFR- non- 50 ml/min/1.73sq m Abnormal >60 [facility] Comment on above: Order Comment: No: D o not add to previous draw Result Comment: Calc ulation may not be valid for patients over 70 years Performed By: #### 2 5656 #### [facility] [address], [place] [address] [place] [address] GFR/1.73 sq M.predicted among blacks MDRD (S/P/Bld) [Vol rate/Area] mL/min/{1.73_m2} Normal >60 [facility] Comment on above: Order Comment: No: D o not add to previous draw Result Comment: Calc ulation may not be valid for patients over 70 years Performed By: #### 2 5656 #### [facility] [address] Cardiovascular Lab Reporton 01-17-2022 Cardiovascular Lab Report [facility] Patient Name: Yesy Rodriguez [facility] MR #: [id number] Physician: Onel De of [facility] Wright Medicine Service Date: 01/16/2022 Division of Birthdate: 1940 Cardiology Room #: [id number] Adult [facility] [place] [address] Cardiovascular Laboratory Report INDICATION: The patient is [...] enlarged. She is now brought to the [facility] for cardiac catheterization. PROCEDURES: 1. Right heart catheterization. 2. Left heart catheterization. 3. Mitral valve study. 4. Aortic valve study. 5. Bilateral selective coronary angiography. 6. Limited right common femoral angiography. 7. Access into the right common femoral artery and vein under ultrasound guidance. METHODS: Procedure was explained to the patient with risks and benefits. She signed consent. She was brought to [facility] in a fasting state. The right groin area was prepped and draped in usual fashion. Micropuncture technique was used for access in the right common femoral artery. Inner cannula angiography was performed followed by upsizing to a 4-Dominican x 11 cm sheath. Access was obtained using same technique in the right common femoral vein and a 6-Dominican x 11 cm sheath was placed. A 6-Dominican Orosco catheter was used for heart catheterization with measurement pressures and calculation of cardiac output using the estimated ROSE MARIE method. A 4-Dominican JR4 diagnostic catheter was advanced to the [...] selective coronary angiography was then performed using 4-Dominican JL4 and JR4 diagnostic catheters. Catheters were [...] 3. Moderately elevated right-sided filling pressures. 4. Xvgapyxc-hh-hbngli elevation of the left-sided filling pressures. 5. [...] on (more content not included)... Normal [facility] POC GLUCOSE LABon 01-17-2022 Glucose [Mass/Vol] 109 mg/dL High 70-100 [facility] Comment on above: Performed By: #### 8 5499 #### [facility] [address] [facility]. [address] BASIC METABOLIC PANELon 01-01 Calcium [Mass/Vol] 9.2 mg/dL Normal 8.6-10.3 [facility] Comment on above: Order Comment: This order is a replacement of the rejected order with accession number [id number]. Performed By: #### 0 0071 #### [facility] [address] Chloride [Moles/Vol] 105 mmol/L Normal 98-107 [facility] Comment on above: Order Comment: This order is a replacement of the rejected order with accession number [id number]. Performed By: #### 0 0071 #### [facility] [address] [place] [address], [facility] CO2 [Moles/Vol] 26 mmol/L Normal 21-31 [facility] Comment on above: Order Comment: This order is a replacement of the rejected order with accession number [id number]. Performed By: #### 0 0071 #### [facility] [address] [place] [address], [facility] Creatinine [Mass/Vol] 1.27 mg/dL High 0.60-1.20 [facility] Comment on above: Order Comment: This order is a replacement of the rejected order with accession number [id number]. Performed By: #### 0 0071 #### [facility] [address] eGFR- 49 ml/min/1.73sq m Abnormal >60 [facility] Comment on above: Order Comment: This order is a replacement of the rejected order with accession number [id number]. Result Comment: Calc ulation may not be valid for patients over 70 years Performed By: #### 0 0071 #### [facility] [address] eGFR- non- 40 ml/min/1.73sq m Abnormal >60 [facility] Comment on above: Order Comment: This order is a replacement of the rejected order with accession number [id number]. Result Comment: Calc ulation may not be valid for patients over 70 years Performed By: #### 0 0071 #### [facility] [address] [place] [address], [facility] Glucose [Mass/Vol] 113 mg/dL High 70-100 [facility] Comment on above: Order Comment: This order is a replacement of the rejected order with accession number [id number]. Performed By: #### 0 0071 #### [facility] [address] [place] [address], [place] Potassium [Moles/Vol] 4.0 mmol/L Normal 3.5-5.1 [facility] Comment on above: Order Comment: This order is a replacement of the rejected order with accession number [id number]. Performed By: #### 0 0071 #### [facility] [address] [place] [address], [place] Sodium [Moles/Vol] 140 mmol/L Normal 136-145 [facility] Comment on above: Order Comment: This order is a replacement of the rejected order with accession number [id number]. Performed By: #### 0 0071 #### [facility] [address] [place] [address], [place] Urea nitrogen [Mass/Vol] 48 mg/dL High 7-25 [facility] Comment on above: Order Comment: This order is a replacement of the rejected order with accession number [id number]. Performed By: #### 0 0071 #### [facility] [address] [place] [address], [place] Calcium [Mass/Vol] 9.3 mg/dL Normal 8.6-10.3 [facility] Comment on above: Performed By: #### 0 0071 #### [facility] [address] [place] [address], [place] Chloride [Moles/Vol] 106 mmol/L Normal 98-107 [facility] Comment on above: Performed By: #### 0 0071 #### [facility] [address] [place] [address], [place] CO2 [Moles/Vol] 27 mmol/L Normal 21-31 [facility] Comment on above: Performed By: #### 0 0071 #### [facility] [address] [place] [address], [place] Creatinine [Mass/Vol] 1.47 mg/dL High 0.60-1.20 [facility] Comment on above: Performed By: #### 0 0071 #### [facility] [address] [place] [address], [facility] eGFR- 41 ml/min/1.73sq m Abnormal >60 [facility] Comment on above: Result Comment: Calc ulation may not be valid for patients over 70 years Performed By: #### 0 0071 #### [facility] [address] [place] [address], [facility] eGFR- non- 34 ml/min/1.73sq m Abnormal >60 [facility] Comment on above: Result Comment: Calc ulation may not be valid for patients over 70 years Performed By: #### 0 0071 #### [facility] [address] [place] [address], [place] Glucose [Mass/Vol] 107 mg/dL High 70-100 [facility] Comment on above: Performed By: #### 0 0071 #### [facility] [address] [place] [address], [place] Potassium [Moles/Vol] 4.5 mmol/L Normal 3.5-5.1 [facility] Comment on above: Performed By: #### 0 0071 #### [facility] [address] [place] [address], [place] Sodium [Moles/Vol] 141 mmol/L Normal 136-145 [facility] Comment on above: Performed By: #### 0 0071 #### [facility] [address] [place] [address], [place] Urea nitrogen [Mass/Vol] 51 mg/dL High 7-25 [facility] Comment on above: Performed By: #### 0 0071 #### [facility] [address] [place] [address], [place] CBC COMPLETE BLOOD COUNTon 0 01-16-2022 Erythrocyte distribution width (RBC) [Ratio] 15.6 % High 11.5-15.0 [facility] Comment on above: Performed By: #### 5 0608 #### [facility] [address] [facility] Hematocrit (Bld) [Volume fraction] 39.3 % Normal 36.0-45.0 [facility] Comment on above: Performed By: #### 5 0608 #### [facility] [address] Hemoglobin (Bld) [Mass/Vol] 12.2 g/dL Normal 12.0-15.0 [facility] Comment on above: Performed By: #### 5 0608 #### [facility] [address] MCH (RBC) [Entitic mass] 28.7 pg Normal 27.0-33.0 [facility] Comment on above: Performed By: #### 5 0608 #### [facility] [address] MCHC (RBC) [Mass/Vol] 31.0 g/dL Low 32.0-35.0 [facility] Comment on above: Performed By: #### 5 0608 #### [facility] [address] MCV (RBC) [Entitic vol] 92.5 fL Normal 82.0-98.0 [facility] Comment on above: Performed By: #### 5 0608 #### [facility] [address] [facility]. [address] Nucleated RBC/100 WBC (Bld) [Ratio] 0 % Normal 0-0 [facility] Comment on above: Performed By: #### 5 0608 #### [facility] [address] [place] [address], [facility] PLAT CNT 278 10*3/uL Normal 150-400 [facility] Comment on above: Performed By: #### 5 0608 #### [facility] [address] [place] [address], [facility] RBC (Bld) [#/Vol] 4.25 10*6/uL Normal 3.80-5.00 [facility] Comment on above: Performed By: #### 5 0608 #### [facility] [address] [place] [address], [facility] WBC (Bld) [#/Vol] 8.68 10*3/uL Normal 4.00-10.60 [facility] Comment on above: Performed By: #### 5 0608 #### [facility] [address] [place] [address], [facility] BASIC METABOLIC PANELon 12-01 Calcium [Mass/Vol] 10.2 mg/dL Normal 8.6-10.4 [facility] Comment on above: Order Comment: FASTI NG:YESFASTING: YES Performed By: #### 1 164, 867 #### [facility] [address], [address] [place] [address] Processor Helper: Matt Beasley MD Chloride [Moles/Vol] 100 mmol/L Normal 98-110 [facility] Comment on above: Order Comment: FASTI NG:YESFASTING: YES Performed By: #### 1 164, 867 #### [facility] [place] [address] Processor Helper: Matt Beasley MD CO2 [Moles/Vol] 28 mmol/L Normal 20-32 [facility] Comment on above: Order Comment: FASTI NG:YESFASTING: YES Performed By: #### 1 164, 867 #### [facility] [address], [address] [place] [address] Processor Helper: Matt Beasley MD Creatinine [Mass/Vol] 1.54 mg/dL High 0.60-0.[address] [facility] Comment on above: Order Comment: FASTI NG:YESFASTING: YES Result Comment: For patients >49 years of age, the reference limit for Creatinine is approximately 13% higher for people identified as -Uzbek. Performed By: #### 1 0165, 867 #### [facility] [address], [address] [place] [address] Processor Helper: Matt Beasley MD eGFR NON-AFR. CANADIAN 31 mL/min/1.73m2 Low > OR = 60 [facility] Comment on above: Order Comment: FASTI NG:YESFASTING: YES Performed By: #### 1 0165, 867 #### [facility] [address], [address] [place] [address] Processor Helper: Matt Beasley MD GFR/1.73 sq M.predicted among blacks MDRD (S/P/Bld) [Vol rate/Area] 36 mL/min/{1.73_m2} Low > OR = 60 [facility] Comment on above: Order Comment: FASTI NG:YESFASTING: YES Performed By: #### 1 016, 867 #### [facility] [address], [address] [place] [address] Processor Helper: Matt Beasley MD Glucose [Mass/Vol] 119 mg/dL High 65-99 [facility] Comment on above: Order Comment: FASTI NG:YESFASTING: YES Result Comment: Fasting reference interval For someone without known diabetes, a glucose value between 100 and 125 mg/dL is consistent with prediabetes and should be confirmed with a follow-up test. Performed By: #### 1 0165, 867 #### [facility] [address], [address] [place] [address] Processor Helper: Matt Beasley MD Potassium [Moles/Vol] 4.1 mmol/L Normal 3.5-5.3 [facility] [employer] Comment on above: Order Comment: FASTI NG:YESFASTING: YES Performed By: #### 1 0165, 867 #### [facility] [address], [address] [place] [address] Processor Helper: Matt Beasley MD Sodium [Moles/Vol] 140 mmol/L Normal 135-146 [facility] Comment on above: Order Comment: FASTI NG:YESFASTING: YES Performed By: #### 1 0165, 867 #### [facility] [address], [address] [place] [address] Processor Helper: Matt Beasley MD Urea nitrogen [Mass/Vol] 45 mg/dL High 7-25 [facility] Comment on above: Order Comment: FASTI NG:YESFASTING: YES Performed By: #### 1 0165, 867 #### [facility] [place] [address] Processor Helper: Matt Beasley MD Urea nitrogen/Creatinine [Mass ratio] 29 mg/mg High 6-22 [facility] Comment on above: Order Comment: FASTI NG:YESFASTING: YES Performed By: #### 1 164, 867 #### [facility] of [address], [address] [place] [address] Processor Helper: Matt Beasley MD BASIC METABOLIC PANELon 11-2 Calcium [Mass/Vol] 10.1 mg/dL Normal 8.6-10.4 [facility] Comment on above: Performed By: #### 1 0165, 867 #### [facility] [place] [address] Processor Helper: Matt Beasley MD Chloride [Moles/Vol] 103 mmol/L Normal 98-110 [facility] Comment on above: Performed By: #### 1 016, 867 #### [facility] of [place] [address] Processor Helper: Matt Beasley MD CO2 [Moles/Vol] 28 mmol/L Normal 20-32 [facility] Comment on above: Performed By: #### 1 0165, 867 #### [facility] [place] [address] Processor Helper: Matt Beasley MD Creatinine [Mass/Vol] 1.29 mg/dL High 0.60-0.[address] [facility] Comment on above: Result Comment: For patients >49 years of age, the reference limit for Creatinine is approximately 13% higher for people identified as -Uzbek. Performed By: #### 1 0165, 867 #### [facility] [address], [address] [place] [address] Processor Helper: Matt Beasley MD eGFR NON-AFR. CANADIAN 38 mL/min/1.73m2 Low > OR = 60 [facility] Comment on above: Performed By: #### 1 164, 867 #### [facility] [place] [address] Processor Helper: Matt Beasley MD GFR/1.73 sq M.predicted among blacks MDRD (S/P/Bld) [Vol rate/Area] 44 mL/min/{1.73_m2} Low > OR = 60 [facility] Comment on above: Performed By: #### 1 016, 867 #### [facility] [place] [address] Processor Helper: Matt Beasley MD Glucose [Mass/Vol] 107 mg/dL High 65-99 [facility] Comment on above: Result Comment: Fasting reference interval For someone without known diabetes, a glucose value between 100 and 125 mg/dL is consistent with prediabetes and should be confirmed with a follow-up test. Performed By: #### 1 164, 867 #### [facility] [address], [address] [place] [address] Processor Helper: Matt Beasley MD Potassium [Moles/Vol] 4.1 mmol/L Normal 3.5-5.[address] [facility] Comment on above: Performed By: #### 1 016, 867 #### [facility] [place] [address] Processor Helper: Matt Beasley MD Sodium [Moles/Vol] 139 mmol/L Normal 135-146 [facility] Comment on above: Performed By: #### 1 5, 867 #### [facility] of [address], [address] [place] [address] Processor Helper: Matt Beasley MD Urea nitrogen [Mass/Vol] 30 mg/dL High 7- [facility] Comment on above: Performed By: #### 1 0165, 867 #### [facility] of [address], [address] [place] [address] Processor Helper: Matt Beasley MD Urea nitrogen/Creatinine [Mass ratio] 23 mg/mg High 6- [facility] Comment on above: Performed By: #### 1 0165, 867 #### [facility] of [address], [address] [place] [address] Processor Helper: Matt Beasley MD T4 (THYROXINE), TOTALon 10-02 T4 [Mass/Vol] 7.8 ug/dL Normal 5.1-11.9 [facility] Comment on above: Performed By: #### 1 0165, 867 #### [facility] of [address], [address] [place] [address] Processor Helper: Matt Beasley MD TSHon 10-23-2021 TSH Qn 7.48 m[IU]/L High 0.40-4.50 [facility] Comment on above: Performed By: #### 1 016, 867 #### [facility] of [place] [address] Processor Helper: Matt Beasley MD [place] 125on 09-26-2021 [place] 125 26 U/mL Normal <38 [facility] Comment on above: Performed By: #### C A125 #### [employer] [address] [place] [address] Mortgage Banker: Andrew Blakely MD [place] 125Ordered By: Anabel Babb on on 09-26-2021 [place] 125 26 U/mL <38 [facility] [employer] Phone: [employer] Phone: Microscopic UrinalysisOrdere d By: Anabel Duncan on 09-26-2021 - [facility] Work Phone: Amorphous, UA NOT REPORTED None [facility] [employer] Work Phone: Bacteria, UA NOT REPORTED None [facility] [facility] Work Phone: Casts UA NOT REPORTED [facility] Work Phone: Crystals, UA NOT REPORTED None /HPF [facility] Work Phone: Epithelial Cells UA 0 TO 2 [facility] Work Phone: Mucus, UA NOT REPORTED None [facility] Work Phone: Other Observations UA NOT REPORTED NOT REQ. M [facility] Work Phone: RBC, UA 2 TO 5 [facility] Work Phone: Comment on above: Reference range defi margarita for non-centrifuged specimen. Renal Epithelial, UA NOT REPORTED 0 /HPF [facility] Work Phone: Trichomonas, UA NOT REPORTED None [facility] Work Phone: WBC, UA 0 TO 2 [facility] Work Phone: Yeast, UA NOT REPORTED None [facility] Work Phone: [facility] Work Phone: UA w/Reflex Cultureon 2020 Bilirubin, SemiQt,Ur Negative Normal NEG [facility] Comment on above: Performed By: #### U AX, UMICAO #### [facility] [address] [place] [address] Mortgage Banker: Andrew Blakely MD Blood, Urine Negative Normal NEG [facility] Comment on above: Performed By: #### U AX, UMICAO #### [facility] [address] [place] [address] Mortgage Banker: Andrew Blakely MD Clarity (U) Clear Normal CLEAR [facility] Comment on above: Performed By: #### U AX, UMICAO #### [facility] [address] [place] [phone] Mortgage Banker: Andrew Blakely MD Color (U) Yellow Normal YEL [facility] Comment on above: Performed By: #### U AX, UMICAO #### [facility] [address] [place] [address] [phone] Mortgage Banker: Andrew Blakely MD Glucose Ql (U) Negative Normal NEG [facility] Comment on above: Performed By: #### U AX, UMICAO #### [facility] [address] [place] [address] [phone] Mortgage Banker: Andrew Blakely MD Ketones Ql (U) Negative Normal NEG [facility] Comment on above: Performed By: #### U AX, UMICAO #### [facility] [address] [place] [address] 72807 Mortgage Banker: Andrew Blakely MD Leukocyte esterase Test strip Ql (U) TRACE Abnormal NEG [facility] Comment on above: Performed By: #### U AX, UMICAO #### [facility] [address] [place] [phone] Mortgage Banker: Andrew Blakely MD Nitrite,Ur Negative Normal NEG [facility] Comment on above: Performed By: #### U AX, UMICAO #### [facility] [address] [place] [address] [phone] Mortgage Banker: Andrew Blakely MD PH,Ur 7.0 Normal 5.0-8.0 [facility] Comment on above: Performed By: #### U AX, UMICAO #### [facility] [address] [place] [address] [phone] Mortgage Banker: Andrew Blakely MD Protein Ql (U) Negative Normal NEG [facility] Comment on above: Performed By: #### U AX, UMICAO #### [facility] [address] [place] [address] Mortgage Banker: Andrew Blakely MD Spec. Whatley,Ur 1.015 Normal 1.005-1.030 [facility] Comment on above: Performed By: #### U AX, UMICAO #### [facility] [address] [place] [address] Mortgage Banker: Andrew Blakely MD Urobilinogen,Ur Normal Normal NORM [facility] Comment on above: Performed By: #### U AX, UMICAO #### [facility] [address] [place] [address] [phone] Mortgage Banker: Andrew Blakely MD Comment NOT REPORTED Normal [facility] Comment on above: Performed By: #### U AX, UMICAO #### [facility] [address] [place] [address] [phone] Mortgage Banker: Andrew Blakely MD Urinalysis Reflex to Culture Ordered By: Anabel Duncan on 09-26-2021 Bilirubin Urine Negative NEGATIVE [facility] Work Phone: Color, UA Yellow Yellow [facility] Work Phone: Glucose, Ur Negative NEGATIVE [facility] Work Phone: Interpretation and review of laboratory results Abnormal [facility] Work Phone: Ketones Ql (U) Negative NEGATIVE [employer] [facility] [place] Work Phone: Leukocyte esterase Test strip Ql (U) TRACE Abnormal NEGATIVE [facility] Work Phone: Nitrite, Urine Negative NEGATIVE [employer] [facility] [place] Work Phone: pH, UA 7.0 [facility] Work Phone: Protein, UA Negative NEGATIVE [employer] [facility] Work Phone: Specific Whatley, UA 1.015 [facility] Phone: Turbidity UA Clear Clear [facility] Work Phone: Urinalysis Comments NOT REPORTED [facility] Work Phone: Urine Hgb Negative NEGATIVE [facility] [employer] Phone: Urobilinogen, Urine Normal Normal [facility] [employer] Phone: [facility] [employer] Phone: Urinalysis,Microon 1 ----- Normal [facility] Comment on above: Performed By: #### U AX, UMICAO #### [facility] [address] [place] [address] [phone] Mortgage Banker: Andrew Blakely MD Epithelial cells LM Ql (Urine sed) 0 TO 2 Normal 0-5 [facility] Comment on above: Performed By: #### U AX, UMICAO #### [facility] [address] [place] [address] [phone] Mortgage Banker: Andrew Blakely MD Urine RBC's 2 TO 5 Normal 0-4 [facility] Comment on above: Result Comment: Refe rence range defined for non-centrifuged specimen. Performed By: #### U AX, UMICAO #### [facility] [address] [place] [phone] Mortgage Banker: Andrew Blakely MD Urine WBC's 0 TO 2 Normal 0-5 [facility] Comment on above: Performed By: #### U AX, UMICAO #### [facility] [address] [place] [address] 68041 Mortgage Banker: Andrew Blakely MD Amorphous sediment LM Ql (Urine sed) NOT REPORTED Normal NONE [facility] Comment on above: Performed By: #### U AX, UMICAO #### [facility] [address] [place] [address] [phone] Mortgage Banker: Andrew Blakely MD Bacteria NOT REPORTED Normal NONE [facility] Comment on above: Performed By: #### U AX, UMICAO #### [facility] [address] [place] [address] Mortgage Banker: Andrew Blakely MD Casts NOT REPORTED Normal 0-8 [facility] Comment on above: Performed By: #### U AX, UMICAO #### [facility] [address] [place] [address] [phone] Mortgage Banker: Andrew Blakely MD Crystals LM Nom (Urine sed) NOT REPORTED Normal NONE [facility] Comment on above: Performed By: #### U AX, UMICAO #### [facility] [address] [place] [address] [phone] Mortgage Banker: Andrew Blakely MD Epithelial, Renal NOT REPORTED Normal 0 [facility] Comment on above: Performed By: #### U AX, UMICAO #### [facility] [address] [place] [address] [phone] Mortgage Banker: Andrew Blakely MD Mucus Strands NOT REPORTED Normal [facility] Comment on above: Performed By: #### U AX, UMICAO #### [facility] [address] [place] [address] [phone] Mortgage Banker: Andrew Blakely MD Other Observations NOT REPORTED Normal NREQ [facility] Comment on above: Performed By: #### U AX, UMICAO #### [facility] [address] [place] [address] 35298 Mortgage Banker: Andrew Blakely MD Trichomonas NOT REPORTED Normal NONE [facility] Comment on above: Performed By: #### U AX, UMICAO #### [facility] [address] [place] [address] [phone] Mortgage Banker: Andrew Blakely MD Yeast NOT REPORTED Normal NONE [facility] Comment on above: Performed By: #### U CALVIN SAPP #### [facility] [address] [place] [address] Mortgage Banker: Andrew Blakely MD [facility] 07-27-2021 Albumin [Mass/Vol] 4.4 g/dL Normal 3.6-5.1 [facility] Comment on above: Performed By: #### 1 016, 867 #### [facility] of [address], [address] [place] [address] Processor Helper: Matt Beasley MD Albumin/Globulin [Mass ratio] 1.8 {ratio} Normal 1.0-2.5 [facility] Comment on above: Performed By: #### 1 016, 867 #### [facility] of [place] [address] Processor Helper: Matt Beasley MD ALP [Catalytic activity/Vol] 67 U/L Normal 37-153 [facility] Comment on above: Performed By: #### 1 Eugenie, 867 #### [facility] of [place] [address] Processor Helper: Matt Beasley MD ALT [Catalytic activity/Vol] 10 U/L Normal 6-29 [facility] Comment on above: Performed By: #### 1 164, 867 #### [facility] of [place] [address] Processor Helper: Matt Beasley MD AST [Catalytic activity/Vol] 17 U/L Normal 10-35 [facility] Comment on above: Performed By: #### 1 016, 867 #### [facility] of [place] [address] Processor Helper: Matt Beasley MD Bilirubin [Mass/Vol] 0.4 mg/dL Normal 0.2-1.2 [facility] Comment on above: Performed By: #### 1 016, 867 #### [facility] of [address] Processor Helper: Matt Beasley MD Calcium [Mass/Vol] 9.8 mg/dL Normal 8.6-10.4 [facility] Comment on above: Performed By: #### 1 164, 867 #### [facility] [place] [address] Processor Helper: Matt Beasley MD Chloride [Moles/Vol] 104 mmol/L Normal 98-110 [facility] Comment on above: Performed By: #### 1 016, 867 #### [facility] [address], [address] [place] [address] Processor Helper: Matt Beasley MD CO2 [Moles/Vol] 25 mmol/L Normal 20-32 [facility] Comment on above: Performed By: #### 1 016, 867 #### [facility] [place] [address] Processor Helper: Matt Beasley MD Creatinine [Mass/Vol] 1.37 mg/dL High 0.60-0.[address] [facility] Comment on above: Result Comment: For patients >49 years of age, the reference limit for Creatinine is approximately 13% higher for people identified as -Uzbek. Performed By: #### 1 164, 867 #### [facility] [place] [address] Processor Helper: Matt Beasley MD eGFR NON-AFR. CANADIAN 36 mL/min/1.73m2 Low > OR = 60 [facility] Comment on above: Performed By: #### 1 016, 867 #### [facility] [place] [address] Processor Helper: Matt Beasley MD GFR/1.73 sq M.predicted among blacks MDRD (S/P/Bld) [Vol rate/Area] 41 mL/min/{1.73_m2} Low > OR = 60 [facility] Comment on above: Performed By: #### 1 016, 867 #### [facility] [address] [place] [address] Processor Helper: Matt Beasley MD Globulin (S) [Mass/Vol] 2.5 g/dL Normal 1.9-3.7 [facility] Comment on above: Performed By: #### 1 0165, 867 #### [facility] [place] [address] Processor Helper: Matt Beasley MD Glucose [Mass/Vol] 97 mg/dL Normal 65-99 [facility] Comment on above: Result Comment: Fasting reference interval Performed By: #### 1 0165, 867 #### [facility] [place] [address] Processor Helper: Matt Beasley MD Potassium [Moles/Vol] 5.3 mmol/L Normal 3.5-5.3 [facility] Comment on above: Performed By: #### 1 0165, 867 #### [facility] [place] [address] Processor Helper: Matt Beasley MD Protein [Mass/Vol] 6.9 g/dL Normal 6.1-8.1 [facility] Comment on above: Performed By: #### 1 0165, 867 #### [facility] [place] [address] Processor Helper: Matt Beasley MD Sodium [Moles/Vol] 137 mmol/L Normal 135-146 [facility] Comment on above: Performed By: #### 1 0165, 867 #### [facility] of [place] [address] Processor Helper: Matt Beasley MD Urea nitrogen [Mass/Vol] 25 mg/dL Normal 7-25 [facility] Comment on above: Performed By: #### 1 0165, 867 #### [facility] [place] [address] Processor Helper: Matt Beasley MD Urea nitrogen/Creatinine [Mass ratio] 18 mg/mg Normal 6-22 [facility] Comment on above: Performed By: #### 1 016, 867 #### [facility] [place] [address] Processor Helper: Matt Beasley MD LIPID PANEL, [facility] 08- Cholesterol [Mass/Vol] 159 mg/dL Normal <200 [facility] Comment on above: Performed By: #### 1 0165, 867 #### [facility] [place] [address] Processor Helper: Matt Beasley MD Cholesterol in HDL [Mass/Vol] 63 mg/dL Normal > OR = 50 [facility] Comment on above: Performed By: #### 1 0165, 867 #### [facility] [place] [address] Processor Helper: Matt Beasley MD Cholesterol in LDL [Mass/Vol] [...] LDL-C. Sawyer YIP et al. TORY. 2013;310(19): 9498-2916 ([email or web address]) Performed By: #### 1 016, 867 #### [facility] [place] [address] Processor Helper: Matt Beasley MD Cholesterol.total/Cho lesterol in HDL [Mass ratio] 2.5 {ratio} Normal <5.0 [facility] Comment on above: Performed By: #### 1 0165, 867 #### [facility] [place] [address] Processor Helper: Matt Beasley MD NON HDL CHOLESTEROL 96 mg/dL (calc) Normal <130 [facility] Comment on above: Result Comment: For patients with diabetes plus 1 major ASCVD risk factor, treating to a non-HDL-C goal of <100 mg/dL (LDL-C of <70 mg/dL) is considered a therapeutic option. Performed By: #### 1 0165, 867 #### [facility] [address], [address] [place] [address] Processor Helper: Matt Beasley MD Triglyceride [Mass/Vol] 156 mg/dL High <150 [facility] Comment on above: Performed By: #### 1 0165, 867 #### [facility] [address], [address] [place] [address] Processor Helper: Matt Beasley MD UA w/Reflex Cultureon 2020 Bilirubin, SemiQt,Ur Negative Normal NEG [facility] Comment on above: Performed By: #### U AX UMICAO #### [facility] [address] [place] [address] Mortgage Banker: Andrew Blakely MD Blood, Urine Negative Normal NEG [facility] Comment on above: Performed By: #### U AX, UMICAO #### [facility] [address] [place] [address] [phone] Mortgage Banker: Andrew Blakely MD Clarity (U) CLEAR Normal CLEAR [facility] Comment on above: Performed By: #### U AX, UMICAO #### [facility] [address] [place] [address] [phone] Mortgage Banker: Andrew Blakely MD Color (U) YELLOW Normal YEL [facility] Comment on above: Performed By: #### U AX, UMICAO #### [facility] [address] [place] [address] [phone] Mortgage Banker: Andrew Blakely MD Glucose Ql (U) Negative Normal NEG [facility] Comment on above: Performed By: #### U AX, UMICAO #### [facility] [address] [place] [address] [phone] Mortgage Banker: Andrew Blakely MD Ketones Ql (U) Negative Normal NEG [facility] Comment on above: Performed By: #### U AX, UMICAO #### [facility] [address] [place] [address] [phone] Mortgage Banker: Andrew Blakely MD Leukocyte esterase Test strip Ql (U) MODERATE Abnormal NEG [facility] Comment on above: Performed By: #### U AX, UMICAO #### [facility] [address] [place] [address] 46046 Mortgage Banker: Andrew Blakely MD Nitrite,Ur Negative Normal NEG [facility] Comment on above: Performed By: #### U AX, UMICAO #### [address] [address] Mortgage Banker: Andrew Blakely MD PH,Ur 6.5 Normal 5.0-8.0 [facility] Comment on above: Performed By: #### U AX, UMICAO #### [address] [address] Mortgage Banker: Andrew Blakely MD Protein Ql (U) Negative Normal NEG [facility] Comment on above: Performed By: #### U AX, UMICAO #### [address] [address] Mortgage Banker: Andrew Blakely MD Spec. [place],Ur 1.006 Normal 1.005-1.030 [facility] Comment on above: Performed By: #### U AX, UMICAO #### [address] [address] Mortgage Banker: Andrew Blakely MD Urobilinogen,Ur Normal Normal NORM [facility] Comment on above: Performed By: #### U AX, UMICAO #### [address] [place] [address] Mortgage Banker: Andrew Blakely MD Comment NOT REPORTED Normal [facility] Comment on above: Performed By: #### U AX, UMICAO #### [facility] [address] [place] [address] [phone] Mortgage Banker: Andrew Blakely MD Urinalysis,Microon 1 ----- Normal [facility] Comment on above: Performed By: #### U AX, UMICAO #### [facility] [address] [place] [address] [phone] Mortgage Banker: Andrew Blakely MD Bacteria MANY Abnormal NONE [facility] Comment on above: Performed By: #### U AX, UMICAO #### [facility] [address] [place] [address] [phone] Mortgage Banker: Andrew Blakely MD Epithelial cells LM Ql (Urine sed) 0 TO 2 Normal 0-5 [facility] Comment on above: Performed By: #### U AX, UMICAO #### [facility] [address] [place] [address] 92180 Mortgage Banker: Andrew Blakely MD Urine RBC's 0 TO 2 Normal 0-2 [facility] Comment on above: Performed By: #### U AX, UMICAO #### [facility] [address] [place] [address] 31712 Mortgage Banker: Andrew Blakely MD Urine WBC's 2 TO 5 Normal 0-5 [facility] Comment on above: Performed By: #### U AX, UMICAO #### [facility] [address] [place] [address] 31213 Mortgage Banker: Andrew Blakely MD Amorphous sediment LM Ql (Urine sed) NOT REPORTED Normal [facility] Comment on above: Performed By: #### U AX, UMICAO #### [facility] [address] [place] [address] [phone] Mortgage Banker: Andrew Blakely MD Casts NOT REPORTED Normal 0-2 [facility] Comment on above: Performed By: #### U AX, UMICAO #### [facility] [address] [place] [address]64 Mortgage Banker: Andrew Blakely MD Crystals LM Nom (Urine sed) NOT REPORTED Normal NONE [facility] Comment on above: Performed By: #### U AX, UMICAO #### [facility] [address] [place] [address] [phone] Mortgage Banker: Andrew Blakely MD Epithelial, Renal NOT REPORTED Normal 0 [facility] Comment on above: Performed By: #### U AX, UMICAO #### [facility] [address] [place] [address] 08276 Mortgage Banker: Andrew Blakely MD Mucus Strands NOT REPORTED Normal NONE [facility] Comment on above: Performed By: #### U AX, UMICAO #### [facility] [address] [place] [address] 49160 Mortgage Banker: Andrew Blakely MD Other Observations NOT REPORTED Normal NREQ [facility] Comment on above: Performed By: #### U AX, UMICAO #### [facility] [address] [place] [address] [phone] Mortgage Banker: Andrew Blakely MD Trichomonas NOT REPORTED Normal NONE [facility] Comment on above: Performed By: #### U AX, UMICAO #### [facility] [address] [place] [address] [phone] Mortgage Banker: Andrew Blakely MD Yeast NOT REPORTED Normal NONE [facility] Comment on above: Performed By: #### U AX, UMICAO #### [facility] [address] [place] [address] 60049 Mortgage Banker: Andrew Blakely MD Vital Signs Date Time Vital Sign Value Performing Clinician Facility 07-08-2023 11:00-0400 Body height 149.86 cm Albin Bonner Other [facility] Other 07-08-2023 11:00-0400 Body mass index (BMI) [Ratio] 26.17 kg/m2 Albin Englands Other [facility] Other 07-08-2023 11:00-0400 Body temperature 96.5 [degF] Albin Bonner Other [facility] Other 07-08-2023 11:00-0400 Body weight 58.79 kg Albin Englands Other [facility] Other 07-08-2023 11:00-0400 Diastolic blood pressure 80 mm[Hg] Albin Englands Other [facility] Other 07-08-2023 11:00-0400 Respiratory rate 18 /min Albin Englands Other [facility] Other 07-08-2023 11:00-0400 SaO2% (BldA) [Mass fraction] 96 % Albin Englands Other [facility] Other 07-08-2023 11:00-0400 Systolic blood pressure 140 mm[Hg] Albin Englands Other [facility] Other 01-21-2023 11:20-0500 Body height 149.86 cm Albin Englands Other [facility] Other 01-21-2023 11:20-0500 Body mass index (BMI) [Ratio] 25.85 kg/m2 Albin Bakhous Other [facility] Other 01-21-2023 11:20-0500 Body weight 58.06 kg Aziz Bakhous Other [facility] Other 01-21-2023 11:20-0500 Diastolic blood pressure 73 mm[Hg] Aziz Bakhous Other [facility] Other 01-21-2023 11:20-0500 Respiratory rate 18 /min Aziz Bakhous Other [facility] Other 01-21-2023 11:20-0500 SaO2% (BldA) [Mass fraction] 98 % Aziz Bakhous Other [facility] Other 01-21-2023 11:20-0500 Systolic blood pressure 121 mm[Hg] Aziz Bakhous Other [facility] Other 09-17-2022 15:40-0400 Body height 149.86 cm Aziz Bakhous Other [facility] Other 09-17-2022 15:40-0400 Body mass index (BMI) [Ratio] 24.6 kg/m2 Aziz Bakhous Other [facility] Other 09-17-2022 15:40-0400 Body temperature 97.1 [degF] Aziz Bakhous Other [facility] Other 09-17-2022 15:40-0400 Body weight 55.25 kg Aziz Bakhous Other [facility] Other 09-17-2022 15:40-0400 Diastolic blood pressure 78 mm[Hg] Aziz Bakhous Other [facility] Other 09-17-2022 15:40-0400 Respiratory rate 18 /min Aziz Bakhous Other [facility] Other 09-17-2022 15:40-0400 SaO2% (BldA) [Mass fraction] 99 % Aziz Bakhous Other [facility] Other 09-17-2022 15:40-0400 Systolic blood pressure 140 mm[Hg] Aziz Bakhous Other [facility] Other 04-23-2022 15:40-0400 Body height 149.86 cm Aziz Bakhous Other [facility] Other 04-23-2022 15:40-0400 Body mass index (BMI) [Ratio] 22.94 kg/m2 Aziz Bakhous Other [facility] Other 04-23-2022 15:40-0400 Body temperature 96.4 [degF] Aziz Bakhous Other [facility] Other 04-23-2022 15:40-0400 Body weight 51.53 kg Aziz Bakhous Other [facility] Other 04-23-2022 15:40-0400 Diastolic blood pressure 82 mm[Hg] Aziz Bakhous Other [facility] Other 04-23-2022 15:40-0400 Respiratory rate 18 /min Aziz Bakhous Other [facility] Other 04-23-2022 15:40-0400 SaO2% (BldA) [Mass fraction] 99 % Albin Bonner Other [facility] Other 04-23-2022 15:40-0400 Systolic blood pressure 149 mm[Hg] Albin Bonner Other [facility] Other Encounters Encounter Date Encounter Type Care Provider Facility Start: 07-05-2024 End: 07-05-2024 ambulatory ROCHELLE ONEIL Not Available Start: 06-28-2024 End: 06-28-2024 ambulatory MAMIE BUZZ Not Available Start: 06-22-2024 End: 06-24-2024 ambulatory MAMIE BUZZ Not Available Start: 06-16-2024 End: 06-16-2024 ambulatory KATHARINA CRAFT Not Available Start: 06-14-2024 End: 06-14-2024 ambulatory MAMIE BUZZ Not Available Start: 06-09-2024 End: 06-09-2024 ambulatory DIMPLE EASON Not Available Start: 05-27-2024 End: 05-27-2024 ambulatory [facility] Start: 05-26-2024 End: 05-26-2024 ambulatory SORAIDA BETHEA Not Available Start: 04-05-2024 End: 04-05-2024 ambulatory ROCHELLE ONEIL Not Available Start: 02-25-2024 End: 02-26-2024 ambulatory ELMIRA FREDY [facility] Start: 01-12-2024 Bamboo flowsheet Soraida beltranpatrick CLINICAL RADIOLOGIST Work Phone: [facility] Start: 01-12-2024 Bamboo flowsheet Soraida A Colby snelltrick CLINICAL RADIOLOGIST Work Phone: [facility] Start: 01-12-2024 Patient encounter procedure Soraida Bethea CLINICAL RADIOLOGIST Work Phone: [facility] Start: 01-12-2024 End: 01-12-2024 ambulatory SORAIDA BETHEA Not Available Start: 01-05-2024 End: 01-05-2024 ambulatory Albin Erazoroberts Other [facility] Other Start: 01-05-2024 Refill Elmira Brown DO Work Phone: [facility] Comment on above: 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, without long-term current use of insulin, unspecified CKD stage ([facility] Start: 01-05-2024 Telephone encounter Albin Bonner [facility] Start: 12-03-2023 End: 12-03-2023 ambulatory SORAIDA BETHEA Not Available Start: 11-19-2023 End: 11-19-2023 ambulatory ONEL WRIGHT [facility] Start: 09-10-2023 Telephone encounter Azjulio Bonner [facility] Start: 09-10-2023 End: 09-10-2023 ambulatory DHEERAJ WHITEHEAD [employer] Other Start: 08-27-2023 End: 08-28-20[facility] Start: 07-08-2023 End: 07-08-2023 ambulatory Albin Bonner Other [employer] Other Start: 07-08-2023 Office outpatient visit 25 minutes Albin Bonner [facility] [place] Start: 03-17-2023 End: 03-18-2023 ambulatory DHEERAJ WHITEHEAD Facility:H1 Start: 03-12-2023 End: 03-13-2023 ambulatory DHEERAJ WHITEHEAD Facility:H1 Start: 03-10-2023 End: 03-11-[address] ONEL WRIGHT Facility:H1 Start: 02-05-2023 End: 02-06-[address] DOCTOR ALBRIGHT Facility:H1 Start: 01-24-2023 End: 01-24-2023 Subsequent hospital visit by physician Jam Maya MD Work Phone: [facility] Laboratory Comment on above: History of ovarian c ancer Start: 01-22-2023 End: 01-22-2023 ambulatory Aziz Kaceyroberts Other [employer] Other Start: 01-22-2023 Telephone encounter Azjulio Erazoroberts [facility] Start: 01-21-2023 End: 01-21-2023 ambulatory Azjulio Kaceyroberts Other [employer] Other Start: 01-21-2023 Office outpatient visit 25 minutes Aziz Bakroberts [facility] [place] Start: 01-13-2023 End: 01-13-[address] DOCTOR ALBRIGHT Facility:H1 Start: 01-13-2023 End: 01-14-[address] DOCTOR ALBRIGHT Facility:H1 Start: 11-08-2022 End: 11-08-[address] ZACHARY BOYLE Facility:H1 Start: 09-17-2022 End: 09-17-2022 ambulatory Azjulio Kaceybrian Other [employer] Other Start: 09-17-2022 Office outpatient visit 25 minutes Azjulio Erazoroberts [facility] [place] Start: 09-10-2022 End: 09-11-[address] DOCTOR ALBRIGHT Facility:H1 Start: 08-21-2022 End: 08-22-2022 ambulatory KATHARINA JOVEL Facility:H1 Start: 07-10-2022 End: 07-10-2022 Subsequent hospital visit by physician Zachary Boyle Work Phone: [facility] Laboratory Comment on above: 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 Start: 06-05-2022 End: 06-06-[address] ZACHARY BOYLE Facility:H1 Start: 05-29-2022 End: 05-30-[address] ZACHARY BOYLE Facility:H1 Start: 05-06-2022 End: 05-07-[address] ZACHARY BOYLE Facility:H1 Start: 04-23-2022 End: 04-23-2022 ambulatory Albin Bonner Other [facility] [employer] Other Start: 04-23-2022 Office outpatient ne w 30 minutes Albni Bonner [facility] Start: 03-27-2022 End: 03-27-2022 Subsequent hospital visit by physician Zachary Boyle Work Phone: [facility] Start: 09-26-2021 End: 09-27-2021 [facility] Start: 09-26-2021 End: 09-26-2021 Subsequent hospital visit by [facility] Comment on above: Borderline epithelia l neoplasm of ovary; Gross hematuria Start: 07-18-2021 End: 07-19-2021 ambulatory ANABEL Juárez [facility] Procedures Date Procedure Procedure Detail Performing Clinician Start: 01-24-2023 Immunoassay tumor an tigen quantitative ca 125 Fide Torres DO Work Phone: Start: 07-10-2022 Immunoassay tumor an tigen quantitative ca 125 Iman Reyes PA-C Work Phone: Start: 03-27-2022 Basic metabolic pane l calcium total Onel Wright MD Work Phone: Start: 09-26-2021 Urinalysis microscop ic only Anabel Duncan MD Work Phone: Start: 09-26-2021 Urnls dip stick/tabl et rgnt auto w/o microscopy Anabel Duncan MD Work Phone: Start: 09-26-2021 Immunoassay tumor an tigen quantitative ca 125 Anabel Duncan MD Work Phone: Plan of Treatment Date Care Activity Detail Author Start: 03-17-2024 End: 03-17-2024 Patient encounter procedure 03/17/2024 1:00 PM EDT Office Visit [facility] [address] [place] [id number] [facility] Start: 01-12-2024 End: 01-12-2024 Patient encounter procedure 01/12/2024 11:00 AM EST Office Visit [facility] [address] [place] [address] Soraida Bethea NP [address] [place] [address] Arrived [facility] Comment on above: Arrived Start: 05-08-2023 Hemoglobin A1c measurement Diabetes: Hemoglobin A1C [facility] Start: 01-31-2023 End: 01-31-2023 Patient encounter procedure 01/31/2023 Office Visit Gynecologic Oncology Jam Warren MD [address], [address] [place] [id number] [facility] Oncology Start: 01-05-2023 Creatinine measurement Creatinine [facility] Start: 01-05-2023 Potassium [Moles/volume] in Serum or Plasma Potassium [facility] Start: 08-01-2022 Influenza vaccination [facility] Start: 07-17-2022 End: 07-17-2022 Patient encounter procedure 07/17/2022 Office Visit Gynecologic Oncology Jam Warren MD [address], [address] [place] [id number] [facility] On[facility] Start: 07-01-2022 Influenza vaccination Flu vaccine (# 1) JOSÉ MIGUEL REA [facility] Start: 01-23-2022 End: 01-23-2022 Patient encounter procedure 01/23/2022 Office Visit Gynecologic Oncology Anabel Duncan MD [address] [place] [id number] [facility] On[facility] Start: 01-02-2022 End: 01-02-2022 Patient encounter procedure 01/02/2022 Office Visit Gynecologic Oncology Anabel Duncan MD [address] [place] [id number] [facility] [place] [facility] Oncology Start: 08-01-2021 Influenza vaccination Flu vaccine (# 1) [facility] [employer] Phone: Start: 06-12-2021 Annual Wellness Visi t (AWV) Annual Wellness Visit (AWV) [facility] Start: 09-01-2009 Pneumococcal Vaccine : 65+ Years (2 - PCV) Pneumococcal Vaccine: 65+ Years (2 - PCV) [facility] Start: 2003 Pneumococcal 65+ yea rs Vaccine (1 of 1 - PPSV23) Pneumococcal 65+ years Vaccine (1 of 1 - PPSV23) [facility] [employer] Phone: Start: 1993 Screening for osteoporosis DEXA (modify frequency per FRAX score) [facility] Start: 1988 Shingles Vaccine (1 of 2) Shingles Vaccine (1 of 2) [facility] Start: 1957 DTaP/Tdap/Td vaccine (1 - Tdap) DTaP/Tdap/Td vaccine (1 - Tdap) [facility] Start: 1950 COVID-19 Vaccine (1) COVID-19 Vaccin e (1) [facility] [employer] Phone: Start: 1950 Depression Screen Depression Screen [facility] Start: 1948 Glaucoma screening Diabetes: R etinopathy Screening [facility] Start: 1948 Lipid panel [facility] Start: 1944 Pneumococcal 65+ yea rs Vaccine (1 - PCV) Pneumococcal 65+ years Vaccine (1 - PCV) [facility] Start: 1943 COVID-19 Vaccine (1) COVID-19 Vaccin e (1) [facility] Start: 1938 COVID-19 Vaccine (#1) COVID-19 Vacci ne (#1) [facility] [employer] ([employer]) Start: 1938 Annual Wellness Visi t (AWV) Annual Wellness Visit (AWV) [facility] [employer] ([employer]) Start: 1938 Creatinine measurement Creatinine mo nitoring [facility] [employer] Phone: Start: 1938 Medicare Annual Wellness (AWV) Medicare Annual Wellness (AWV) [facility] Start: 1938 Potassium monitoring Dilma oliva [facility] Work Phone: Immunizations Immunization Date Immunization Notes Care Provider Juventino chewbob 09-15-2023 Influenza, Seasonal, Quadrivalent, Adjuvanted Soraida Bethea CLINICAL RADIOLOGIST Work Phone: [facility] 01-13-2023 diphtheria, tetanus toxoids and pertussis vaccine Elmira Fredy DO Work Phone: [facility] 09-02-2022 Influenza, High-dose Seasonal, Quadrivalent, Preservative Free Elmira Fredy DO Work Phone: [facility] 10-18-2021 Moderna SARS-CoV-2 Vaccination Elmira Fredy DO Work Phone: [facility] Work Phone: 05-11-2021 tetanus toxoid, redu lety diphtheria toxoid, and acellular pertussis vaccine, adsorbed Soraida Bethea CLINICAL RADIOLOGIST Work Phone: [facility] 02-01-2021 Moderna SARS-CoV-2 Vaccination Elmira Fredy DO Work Phone: [facility] 01-04-2021 Moderna SARS-CoV-2 Vaccination Elmira Fredy DO Work Phone: [facility] 11-21-2020 Influenza, High-dose Seasonal, Quadrivalent, Preservative Free Soraida Bethea CLINICAL RADIOLOGIST Work Phone: [facility] 09-01-2008 pneumococcal polysaccharide vaccine, 23 valent Soraida Bethea CLINICAL RADIOLOGIST Work Phone: [facility] Payers Date Payer Category Payer Medicare [employer] MEDICARE ADVANTAGE [employer] MEDICARE [id number] 2021-Present [address] [address] [place] [address] [id number] 2000 Medicare MEDICARE MEDICAR E PART A AND B [id number] 2000-Present [phone] [place] [address] [id number] 1959 Medicare [id number] .[id number] 1938 Unknown [id number] 2.16.840.1.050116.3.579.2.175 1938 Unknown [id number] 2.16.840.1.050108.3.579.2.175 1938 Unknown [id number] 2.16.840.1.603011.3.579.2.593 1938 Unknown [id number] 2.16.840.1.302547.3.579.2.593 1938 Unknown [id number] 2.16.840.1.593133.3.579.2.593 1938 Unknown [id number] 2.16.840.1.085715.3.579.2.593 1938 Unknown [id number] 2.16.840.1.650595.3.579.2.593 1938 Unknown [id number] 2.16.840.1.518415.3.579.2.593 1938 Unknown [id number] 2.16.840.1.944549.3.579.2.593 1938 Unknown [id number] 2.16.840.1.102631.3.579.2.593 1938 Unknown [id number] 2.16.840.1.006564.3.579.2.593 1938 Unknown [id number] 2.16.840.1.502621.3.579.2.593 1938 Unknown [id number] 2.16.840.1.094549.3.579.2.593 1938 Unknown [id number] 2.16.840.1.441958.3.579.2.593 1938 Unknown [id number] 2.16.840.1.567355.3.579.2.593 1938 Unknown [id number] 2.16.840.1.601609.3.579.2.593 1938 Unknown [id number] 2.16.840.1.047325.3.579.2.173 1938 Unknown [id number] 2.16.840.1.520398.3.579.2.173 1938 Unknown [id number] 2.16.840.1.708257.3.579.2.125 9 1938 Unknown [id number] 2.16.840.1.776689.3.579.2.125 9 1938 Unknown [id number] 2.16.840.1.092455.3.579.2.125 9 1938 Unknown [id number] 2.16.840.1.002222.3.579.2.125 9 1938 Unknown [id number] 2.16.840.1.873266.3.579.2.125 9 1938 Unknown [id number] 2.16.840.1.994617.3.579.2.125 9 1938 Unknown [id number] 2.16.840.1.177824.3.579.2.125 9 1938 Unknown [id number] 2.16.840.1.927817.3.579.2.125 9 1938 Unknown [id number] 2.16.840.1.610753.3.579.2.125 9 1938 Unknown [id number] 2.16.840.1.809450.3.579.2.125 9 1938 Unknown [id number] 2.16.840.1.851282.3.579.2.125 9 1938 Unknown [id number] 2.16.840.1.262992.3.579.2.125 9 Social History Date Type Detail Facility Start: 09-26-2021 End: 04-20-2023 Tobacco smoking status WIIS Never smoker [employer] Phone: Start: 09-26-2021 End: 04-20-2023 Tobacco use and exposure Never used [employer] Start: 1940 Sex Assigned At Not on file [employer] Phone: Exposure to SARS-CoV-2 (event) Not sure [employer] Start: 09-08-2023 Sex Assigned At [employer] Other Start: 12-03-2023 Alcohol intake Current drinke r of alcohol (finding) [facility] Start: 09-08-2023 History of Social function [facility] Start: 05-10-2023 Alcohol Comment caffeine intak e: none [facility] NEGATED: Highlighted rowStart: NINF History of tobacco use Passive smoker [facility] Medical Equipment Procedure Code Equipment Code Equipment Origin al Text Equipment Identifier Dates Check fasting glucose once daily [id number] Start: 08-20-2023 Inject 1 Lancet under the skin in the morning. [id number] Start: 08-20-2023 Clinical Notes 04-23-2022 to 05-27-2024 Note Date & Type Note Facility 05-27-2024 Note [place] [facility] - [facility] Subjective Yesy Rodriguez is a 83 y.o. year old female patient being seen for 6 mo follow up aortic valve stenosis, chronic diastolic heart failure, persistent afib, and hypertension. Had echo a few weeks ago. Her main concern is neck pain that radiates down to her left shoulder. Denies chest pain, SOB, palpitations, and lightheadedness/syncope. 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, bilateral Aortic atherosclerosis (CMS/HCC) Arm pain, anterior, right Bilateral hearing loss Chronic obstructive pulmonary disease (CMS/HCC) Left shoulder tendonitis Low back pain Lumbar disc narrowing Lumbar radiculopathy, acute Memory impairment Mixed conductive and sensorineural hearing loss of right ear with restricted hearing of left ear Permanent atrial fibrillation (CMS/HCC) Pulmonary hypertension (CMS/HCC) Serous cystadenoma of left ovary Spondylolisthesis of lumbar region Type 2 diabetes mellitus with diabetic peripheral angiopathy without gangrene (CMS/HCC) Varicose veins of right lower extremity Well woman exam without gynecological exam Family History Problem Relation Name Age of [...] is an 81-year-old woman who moved from [place] in May 2021. She is known to [...] then discharged. She was evaluated at the [facility] cardiology service and she was [...] capacity is mildly reduced. ECG 01/16/2022: Atrial fibrillat (more content not included)... [facility] 01-05-2024 Evaluation note Encounter Date Diagnosis Assessment Notes Jan, Primary hypertension (ICD-10 - I10) [employer] Other 12-20-2023 Note[place] Cardiology - [facility] Subjective Yesy Rodriguez is a [...] is an 81-year-old woman who moved from [place] in May 2021. She is known to [...] then discharged. She was evaluated at the [facility] cardiology service and she was [...] 3. Moderately elevated right-sided filling pressures. 4. Jddxxarx-un-gcmtny elevation of the left-sided filling pressures. 5. Preserved cardiac output and cardiac index. 6. Moderate to severe mitral valve stenosis. 7. Moderate aortic valve stenosis. Visit of 09/06/2022: She is seen in follow-up. Recently she was seen in the office and an echocardiogram was ordered. There is suggested possibly severe aort (more content not included)...[facility]10-11-2023 NoteCardiovascular Medicine [place] [facility] SUBJECTIVE Chief Complaint Patient presents with Congestive Heart Failure Shortness of Breath Yesy Rodriguez is a 83 y.o. female here for follow-up. HPI Last HPI per Dr. Wrgiht: Visit of 12/28/2021: Yesy is seen as a new patient. She is here to establish care and to proceed with work-up of her valvular heart disease and diastolic heart failure. She is an 81-year-old woman who moved from [place] in May 2021. She is known to [...] then discharged. She was evaluated at the [facility] cardiology service and she was [...] then to her calves. Is now resolved. [place] like a muscle cramp. Was worse with walking. Denies any accompanied warmth or redness. Also, since last seen she was seen at [facility] ER with c/o fall, she feel [...] salt and fluid intake. She follows with roll sheeting cutter Albin Lyn - in [facility] - [phone] Patient Active Problem List Diagnosis Chronic diastolic [...] Date Abnormal ECG Arrhythm (more content not included)...[facility] 09-10-2023 NotePatient here c/o LE edema, [...] pain. All other systems reviewed and are negative.[facility] 07-08-2023 Evaluation note* Encounter Date Diagnosis [...] and she follows with cardiology clinic in [place] Jul, Diabetes type 2, no ocular involvement [...] - R31.9) follows with urology clinic in [facility] [employer] Other 02-22-2023 Evaluation note* Encounter Date Diagnosis Assessment Notes Treatment Notes Treatment Clinical Notes Jan, Hyperkalemia (ICD-10 - E87.5) [facility] [employer] Other 02-21-2023 Evaluation note* Encounter Date Diagnosis [...] and she follows with cardiology clinic in [place] Jan, Diabetes type 2, no ocular involvement [...] given handout of high K food at avoid. [employer] Other 10-18-2022 Evaluation note* Encounter Date Diagnosis [...] and she follows with cardiology clinic in [place] Aug, Diabetes type 2, no ocular involvement (ICD-10 - E11.9) Patient used to be on metformin but was stopped due to worsening kidney function. Patient said her diabetes well controlled. She is only Januvnikole patient follows with her PCP for blood glucose control Aug, Vitamin D deficiency (ICD-10 - E55.9) Patient is taking vitamin D supplement. PTH, 25-hydroxy vitamin D and calcium are within normal limit. Aug, Hyperuricemia (ICD-10 - E79.0) Uric acid slightly high at 7.5. I will continue to monitor uric acid. 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 Patient said her diabetes well controlled. 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 documented in this encounter [employer] Phone: evalujqiej note* Diagnosis History of ovarian cancer Personal history of malignant neoplasm of ovary documented in this encounter [employer] Phone: [email or web address] noteNo InformationNort [employer] Other evaluation note* Diagnosis Type 2 diabetes mellitus with [...] REMOVAL OF OVARIES Hospitalization History SEE ABOVE [employer] Other Summary Purpose Family History No Family [...] section and content) DATE CREATED AUTHOR 09/27/2021 [facility] DATE CREATED AUTHOR AUTHOR'S ORGANIZ ATION 01/22/2022 [facility] DATE CREATED AUTHOR AUTHOR'S ORGANIZ ATION 02/18/2022 [facility] DATE CREATED AUTHOR AUTHOR'S ORGANIZ ATION 06/11/2022 [facility] DATE CREATED AUTHOR AUTHOR'S ORGANIZ ATION 10/14/2022 [facility] dical Specialist DATE CREATED AUTHOR AUTHOR'S ORGANIZ ATION 03/20/2023 [facility] [place] [facility] DATE CREATED AUTHOR AUTHOR'S ORGANIZ ATION 02/27/2024 [facility] DATE CREATED AUTHOR AUTHOR'S ORGANIZ ATION 05/28/2024 [facility] DATE CREATED AUTHOR AUTHOR'S ORGANIZ ATION 07/07/2024 [facility] dical Specialists EPIC Care Teams (unrecognized sec tion and content) Batch Weigher Relationship Specialty Start Date End Date Zachary [place] [address] PCP - General Family Medicine 09/26/21 Batch Weigher Relationship Specialty [place] [address] [place] [address] PCP - General Gynecological Oncology 07/17/22 Batch Weigher Relationship Specialty Start Date End Date Elmira Brown DO [address] [facility] [facility] [place] [address] PCP - [employer] 05/31/21 Elmira Brown DO [address] [facility] [place] [address] PCP - General Family Medicine 04/09/23 Batch Weigher Relationship Specialty Start Date End Date Elmira Brown DO [address] [facility] [place] [address] PCP - [employer] 05/31/21 Lexy Mei MD [address] [place] [address] PCP - General Family Medicine 01/12/24 Soraida Bethea NP [address] [place] [address] Nurse Practitioner Family Medicine 01/12/24 REASON FOR [...] BE BASED ON THE PRIMARY CLINICAL RECORDS. [employer] provides no warranty or guarantee of the accuracy or completeness of information in this document.
[2024-07-12 12:54] LABS: Hematocrit 44.7 % (36.0-48.0); Hemoglobin 14.8 g/dL (12.0-16.0); Mean Corpuscular HGB Conc 33.1 g/dL (29.9-35.2); Mean Corpuscular Hemoglobin 31.2 pg (26.7-34.0); Mean Corpuscular Volume 94.1 fL (81.0-99.0); Platelet Count 290 10^3/uL (150-450); Red Blood Count 4.75 10^6/uL (4.20-5.40); Red Cell Distribution Width 13.7 % (11.0-15.0); White Blood Count 10.3 10^3/uL (4.0-11.0)
[2024-07-12 13:06] LABS: Bilirubin Urine NEGATIVE (NEGATIVE); Blood Urine TRACE-I (NEGATIVE); Clarity Urine CLEAR (CLEAR); Color Urine LT. YELLOW (YELLOW); Glucose Urine UA >=1000 mg/dL (NEGATIVE); Ketones Urine NEGATIVE (NEGATIVE); Leukocyte Esterase Urine NEGATIVE (NEGATIVE); Nitrite Urine NEGATIVE (NEGATIVE); Protein Urine NEGATIVE (NEG/TRACE); Urobilinogen Urine 0.2 EU/dL (0.2-1.0); pH Urine 6.5 (5.0-9.0)
[2024-07-12 13:49] LABS: Albumin Level 4.4 g/dL (3.4-5.0); Anion Gap 11.7; BUN Creatinine Ratio 39.5; Calcium 9.5 mg/dL (8.5-10.1); Carbon Dioxide 29.5 mmol/L (21.0-32.0); Chloride 103 mmol/L (98-107); Estimated GFR (African America 38 (>=60); Estimated GFR (Non-African Ame 31 (>=60); Glucose 134 mg/dL (74-106); Magnesium 2.7 mg/dL (1.8-2.4); Phosphorus 4.1 mg/dL (2.6-4.7); Potassium 4.2 mmol/L (3.5-5.1); Sodium 140 mmol/L (136-145)
[2024-07-12 13:52] LABS: Protein Creatinine Ratio Urine 0.49; Total Protein Urine Random 21.3 mg/dL (<=11.9)
[2024-07-13 10:11] LABS: PTH, Intact 106 pg/mL (15-65)
[2024-07-13 16:18] LABS: Microalbum Creatinine Ratio Ur 103.4 mg/g (0.0-29.9); Microalbumin Urine Random 4.5 mg/dL (<=30.0)
== END 2024-07-12 11:58 | disposition home or self-care (01) ==
LOC: LAB 12:01
PROVIDERS: Visit Provider Internal Medicine Nephrology
DX: E87.5 Hyperkalemia (principal); E11.9 Type 2 diabetes mellitus without complications; I50.9 Heart failure, unspecified; E55.9 Vitamin D deficiency, unspecified; E79.0 Hyperuricemia without signs of inflammatory arthritis and tophaceous disease; I12.9 Hypertensive chronic kidney disease with stage 1 through stage 4 chronic kidney disease, or unspecified chronic kidney disease; N18.32 Chronic kidney disease, stage 3b
CPT/HCPCS: 36415; 80069; 81003; 82043; 82306; 82570; 83735; 83970; 84156; 84550; 85027

== ENCOUNTER 2024-11-01 09:38 | Outpatient (OUT) | payer MEDICARE, SELFPAY ==
--- NOTE | 2024-11-01 09:42 | CA_ITS ---
Patient Name: MABLE CHAPPELL MR#: [id number] : 1940 Exam Date: 11/01/2024 Ordering Doctor: DR ONEL WRIGHT M.D. ECHOCARDIOGRAM REPORT PROCEDURE: CA ECHO DOPPLER COMPLETE INDICATIONS: Aortic and Mitral valve stenosis, Mitral valve regurgatation COMPARISON: None. DESCRIPTION: COMPLETE ECHOCARDIOGRAM Real-time transthoracic echocardiography with 2D, M-mode, spectral and color flow Doppler performed. QUALITY: Technical quality was good. LEFT VENTRICLE: Normal chamber size. Normal left ventricular wall thickness. Global left ventricular systolic function is normal. LV EF: Estimated left ventricular ejection fraction is 60%. DIASTOLIC: Not adequately assessed due to heart rhythm. ATRIAL SEPTUM: LEFT ATRIUM: Severe dilatation. RIGHT ATRIUM: Moderate dilatation. RIGHT VENTRICLE: Normal chamber size. Normal right ventricular systolic function. TRICUSPID VALVE: Normal mobility and thickness. No stenosis with moderate regurgitation. Mild pulmonary hypertension. RVSP 44 mmHg. MITRAL VALVE: Moderately thickened with decreased mobility. Moderate mitral valve stenosis. Valve area by planimetry 1.7 cm?. There is no mitral annular calcification. Moderate mitral regurgitation. AORTIC VALVE: Normal trileaflet appearance. Moderately calcified aortic valve. Moderately diminished mobility. Doppler velocity suggest moderate to severe aortic valve stenosis. WISAM(VTI) 0.7 cm2, DVI 0.25, Vmax 2.7 m/s, mean gradient 19 mmHg. Mild aortic regurgitation. AORTIC ROOT: Normal diameter and appearance. PULMONIC VALVE: Normal thickness and mobility. No stenosis. Trivial regurgitation. PERICARDIUM: No evidence of pericardial effusion. IVC: Collapses with inspirations. Normal size. PLEURA: CONCLUSION: 1. Normal ventricular systolic function. LVEF is 60%. 2. Moderate severe biatrial dilatation. 3. Moderate to severe aortic valve stenosis. 4. Moderate mitral valve stenosis and regurgitation. 5. Mildly elevated right-sided pressures. Adult Echocardiography Procedure Report Left Ventricle LVEDD (3.7 - 5.6 cm): 4.11 cm LVESD (2.2 - 4.0 cm): 2.73 cm LVIVS thickness (0.6 - 1.2 cm): 0.84 cm LVPW thickness (0.5 - 1.0 cm): 0.69 cm e': 0.08 m/s E - e': 17.33 LVOT Max Gradient: 1.89 mm[Hg] LVOT Area (cm2): 0.69 m/s Peak Velocity (LVOT): 0.69 m/s Mean Velocity (LVOT): 0.51 m/s LVOT Diameter 1.80 cm Left Ventricular Ejection Fraction: 60 % Left Atrium LA Volume Index (2D A2C): 63.95 ml/m2 Left Atrium Systolic Dimension: 4.04 cm Mitral Valve Mitral Valve E-Wave Peak Velocity: 1.39 m/s Right Ventricle RV Internal Diastolic Dimension: 3.50 cm Aorta AO Root Diam: 2.80 cm Ascending Ao Diam: 2.46 cm Aortic Valve AoV Area (Peak Crescencio): 0.70 cm2, 0.65 cm2 AoV Area (VTI): 0.73 cm2, 0.65 cm2 Deceleration Berg[place]: 2.35 m/s2 Pressure Half-Time: 488.80 ms Peak Velocity(Antegrade Flow): 2.70 m/s, 2.18 m/s, 2.61 m/s Peak Gradient(Antegrade Flow): 29.11 mm[Hg], 18.98 mm[Hg], 27.20 mm[Hg] Mean Velocity(Antegrade Flow): 2.07 m/s, 1.54 m/s, 1.90 m/s Mean Gradient(Antegrade Flow): 18.85 mm[Hg], 10.91 mm[Hg], 16.12 mm[Hg] Velocity Time Integral: 70.06 cm, 53.64 cm, 64.13 cm Tricuspid Valve Peak Velocity (Regurgitant Flow): 3.16 m/s, 2.93 m/s, 3.20 m/s Pulmonic Valve Peak Velocity: 0.84 m/s Peak Gradient: 2.75 mm[Hg], 2.93 mm[Hg] Right Atrium Right Atrium Systolic Pressure: 56.61 ml, 56.61 ml Dictated by: Onel Wright M.D. on 11/01/2024 at 20:55 Approved by: Onel Wright M.D. on 11/01/2024 at 21:03
== END 2024-11-01 09:39 | disposition home or self-care (01) ==
LOC: CARD 09:39
PROVIDERS: Visit Provider Internal Medicine Interventional Cardiology
DX: I35.0 Nonrheumatic aortic (valve) stenosis (principal); I34.0 Nonrheumatic mitral (valve) insufficiency; I34.2 Nonrheumatic mitral (valve) stenosis
CPT/HCPCS: 93306

== ENCOUNTER 2024-12-27 09:56 | Outpatient (OUT) | payer MEDICARE, SELFPAY ==
[2024-12-27 10:33] LABS: Hematocrit 44.2 % (36.0-48.0); Hemoglobin 14.3 g/dL (12.0-16.0); Mean Corpuscular HGB Conc 32.4 g/dL (29.9-35.2); Mean Corpuscular Hemoglobin 31.6 pg (26.7-34.0); Mean Corpuscular Volume 97.8 fL (81.0-99.0); Mean Platelet Volume 11.1 fL (9.5-13.5); Platelet Count 264 10^3/uL (150-450); Red Blood Count 4.52 10^6/uL (4.20-5.40); Red Cell Distribution Width 13.2 % (11.0-15.0); White Blood Count 9.6 10^3/uL (4.0-11.0)
[2024-12-27 10:58] LABS: Creatinine Urine Random 74.39 mg/dL (20.00-300.00); Total Protein Urine Random 22.4 mg/dL (<=11.9)
[2024-12-27 11:08] LABS: Albumin Level 4.3 g/dL (3.4-5.0); Anion Gap 13.8; BUN Creatinine Ratio 26.2; Calcium 9.5 mg/dL (8.5-10.1); Chloride 104 mmol/L (98-107); Estimated GFR (African America 34 (>=60 mL/min/1.73m^2); Estimated GFR (Non-African Ame 28 (>=60 mL/min/1.73m^2); Glucose 142 mg/dL (74-106); Magnesium 2.4 mg/dL (1.8-2.4); Phosphorus 4.5 mg/dL (2.6-4.7); Potassium 3.8 mmol/L (3.5-5.1); Sodium 144 mmol/L (136-145)
[2024-12-28 11:11] LABS: PTH, Intact 82 pg/mL (15-65)
== END 2024-12-27 09:57 | disposition home or self-care (01) ==
LOC: LAB 09:57
PROVIDERS: Visit Provider Internal Medicine Nephrology
DX: E55.9 Vitamin D deficiency, unspecified (principal); I50.9 Heart failure, unspecified; E11.9 Type 2 diabetes mellitus without complications; E87.5 Hyperkalemia; I12.9 Hypertensive chronic kidney disease with stage 1 through stage 4 chronic kidney disease, or unspecified chronic kidney disease; E79.0 Hyperuricemia without signs of inflammatory arthritis and tophaceous disease
CPT/HCPCS: 36415; 80069; 82306; 82570; 83735; 83970; 84156; 84550; 85027

== ENCOUNTER 2025-05-02 09:12 | Outpatient (OUT) | payer MEDICARE, SELFPAY ==
--- OUTSIDE RECORDS SUMMARY | 2021-05-08 20:00 | XMS_ITS | Continuity of Care Document ---
Author Organization [facility] Address [address] [place] [address] Care Team Providers Care Ore Washer Name Role Phone John MEJÍA, Helder Unavailable Unavailable Procedures Procedure Date Ecg-routine 12 Lead; Intrpt & 1 Advance Directives Directive Yes / No Effective Date File Name No Information Encounters Encounter Description Practice Location Reason(s) For Visit Diagnoses Date Provider Providers Copied on [facility]counter [facility], [address] [place] [address], [id number], [facility] No Information 1 John Pendleton. [address] [place] [address], [address], [place], [address], . tel:[phone] Referring Provider: Cindy Walker MD R, [address] [place] [address], [id number] . tel:[phone] Family History Family Member Type Diagnosis Age At Onset No Information Payers Payer name Insurance type Covered republican ID Authoriza tion(s) [employer] HMO CI [id number] Social History Type Description Quantity Date Captured Comments Sex Female Smoking Status No Information Chief Complaint And Reason For Visit No Information Reason For Referral Reason For Referral No Information History Of Present Illness Encounter Date Complaint History Of Prese nt Illness No Information Functional Status Date Functional Assessmen t No Information Instructions Date Instruction Additional Infor mation No Information Assessments Type Assessment Date No Information Patient Care Teams Name Effective Dates (start - stop) Status Members No Information
--- OUTSIDE RECORDS SUMMARY | 2025-05-02 09:17 | XMS_ITS | Encounter Summary ---
Author Organization [facility] Sy tem Address [id number] [address] [place] [address] Care Team Providers Care Associate Professor Of English Name Role Phone Zachary Ware DO Primary Care Provider [phone] Reason for Visit * Reason Comments Med Refill Encounter Details Date Type Department Care Team (Late st Contact Info) Description 06/15/2023 Refill [facility] Internal [facility] - Family Medicine [address] [place] [address] Zachary Ware DO [address] [facility] [place] [address] Social History Tobacco Use Types Packs/Day Years Used Date Smoking Tobacco: Former Smokeless Tobacco: Never Alcohol Use Standard Drinks/Week Comments Yes 0 (1 standard drink = 0.6 oz pur e alcohol) Comments No Sex and Gender Information Value Date Recorded Sex Assigned at Not on file Legal Sex Female 10:16 AM EDT Gender Identity Not on file Sexual Orientation Not on file documented as of this encounter Plan of Treatment Not on file documented as of this encounter Visit Diagnoses Not on filedocumented in this encounter Care Teams Associate Professor Of English Relationship Specialty Start Date End Date Zachary Ware DO [address] [place] [address] PCP - General Family Medicine 08/17/21 documented as of this encounter
--- OUTSIDE RECORDS SUMMARY | 2025-05-02 09:17 | XMS_ITS | Encounter Summary ---
Author Organization [facility] tem Address [id number] [address] [place] [address] Care Team Providers Care Fisher Oyster Name Role Phone Zachary Ware DO Primary Care Provider + [phone] Reason for Visit * Reason Comments Med Refill Encounter Details Date Type Department Care Team (Late st Contact Info) Description 12/13/2022 Refill [facility] - Family Medicine [address] [place] [address] Zachary Ware DO [address], [facility] [address] Social History Tobacco Use Types Packs/Day Years [...] on file documented as of this encounter Miscellaneous Notes * Telephone Encounter - Zachary Ware DO - 12/13/2022 3:32 AM EST No longer patient here documented in this encounter Plan of Treatment Not on file documented as of this encounter Visit Diagnoses Not on filedocumented in this encounter Care Teams Fisher Oyster Relationship Specialty Start Date End Date Zachary Ware DO [address], [place] [address] PCP - General Family Medicine 08/17/21 documented as of this encounter
--- OUTSIDE RECORDS SUMMARY | 2025-05-02 09:17 | XMS_ITS | Encounter Summary ---
Author Organization [facility] tem Address [id number] [address] [place] [address] Care Team Providers Care Service Desk Director Name Role Phone Zachary Ware DO Primary Care Provider + [phone] Encounter Details Date Type Department Care Team (Late st Contact Info) Description 11/13/2022 [facility] - [facility] [address] [place] [address] External, Scanning Provider Social History Tobacco Use Types Packs/Day Years [...] on file documented as of this encounter Procedures Procedure Name Priority Date/Time Associated Diagnosis Comments ECG 12-LEAD Routine 11/08/2022 documented in this encounter Results * ECG 12 lead (11/08/2022) 11/08/2022 us Scanning Provider External ECG ORDERABLES Final Result MANUALLY TRANSCRIBED RESULTS documented in this encounter Visit Diagnoses Not on filedocumented in this encounter Care Teams Service Desk Director Relationship Specialty Start Date End Date Zachary Ware DO [address] [place] [address] PCP - General Family Medicine 08/17/21 documented as of this encounter
--- OUTSIDE RECORDS SUMMARY | 2025-05-02 09:17 | XMS_ITS | Encounter Summary ---
Author Organization [facility] Address [address] [place] [address] Care Team Providers Care Resource Room Special Education Teacher Name Role Phone Elmira Brown Primary Care Provider [phone] Reason for Referral * Other (Routine) - Closed Specialty Diagnoses / Procedures Referred By Contac t Referred To Contact Pulmonary Function Testing Diagnoses SOB (shortness of breath) Procedures Full PFT Study With Bronchodilator Corbin Wright MD [address] [place] [address] Phone: tel: fax: Referral ID Status Reason Start Date Expiration Date Visits Re quested Visits Authorized [id number] Closed 12/28/2021 12/28/2022 1 1 Encounter Details Date Type Department Care Team ([facility] Contact Info) Description 12/28/2021 Transcribe Orders [facility] [address] [place] [address] Corbin Wright MD [address] [place] [address] SOB (shortness of breath) (Primary Dx) Social History Tobacco Use Types Packs/Day Years Used Date Smoking Tobacco: Never Smokeless Tobacco: Never Comments No Sex and Gender Information Value Date Recorded Sex Assigned at Not on file Legal Sex Female 10:13 AM EDT Gender Identity Not on file Sexual Orientation Not on file documented as of this encounter Plan of Treatment Upcoming Encounters Date Type Department Care Team (Late st Contact Info) Description 09/16/2025 11:00 AM EDT Office Visit [facility] DIRECTOR INTEGRATED Oncology [address] [place] [address] Theresa Valenzuela PA-C [address] [facility] [address] [place] [address] 6mfu Scheduled Orders Name Type Priority Associated Diagnoses Orde r Schedule Full PFT Study With Bronchodilator PFT Routine SOB (shortness of breath) Expected: 12/28/2021, Expires: 12/28/2022 documented as of this encounter Visit Diagnoses Diagnosis SOB (shortness of breath)- Primary Shortness of breath documented in this encounter Additional Health Concerns Assessment Noted Time A Body Mass Index follow-up plan has been documented for the patient 09/26/2021 10:40 AM EDT documented as of this encounter Care Teams Resource Room Special Education Teacher Relationship Specialty Start Date End Date Elmira Brown DO [address] [place] [address] PCP - General 02/28/23 documented as of this encounter
--- OUTSIDE RECORDS SUMMARY | 2025-05-02 09:17 | XMS_ITS | Encounter Summary ---
Author Organization [facility] you[facility] Sy tem Address [id number] [address] [place] [address] Care Team Providers Care Director Embalmer Name Role Phone Zachary Ware DO Primary Care Provider [phone] Reason for Visit * Reason Comments Med Refill Encounter Details Date Type Department Care Team (Late st Contact Info) Description 10/11/2022 Refill [facility] Internal Medicine - Family Medicine [address] [place] [address] Zachary Ware DO [address] [facility] [place] [address] Social History Tobacco Use Types Packs/Day Years [...] on filedocumented in this encounter Care Teams Director Embalmer Relationship Specialty Start Date End Date Zachary Ware DO [address] [place] [address] PCP - General Family Medicine 08/17/21 documented as of this encounter
--- OUTSIDE RECORDS SUMMARY | 2025-05-02 09:17 | XMS_ITS | Encounter Summary ---
Author Organization [facility] Sy tem Address [id number] [address] [place] [address] Care Team Providers Care Raw Shellfish Preparer Name Role Phone Zachary Ware DO Primary Care Provider [phone] Reason for Visit * Reason Comments Med Refill Encounter Details Date Type Department Care Team (Late st Contact Info) Description 2023 Refill [facility] Internal Medicine - Family Medicine [address] [place] [address] Zachary Ware DO [address] [facility] [address] Social History Tobacco Use Types Packs/Day Years [...] on filedocumented in this encounter Care Teams Raw Shellfish Preparer Relationship Specialty Start Date End Date Zachary Wrae DO [address] [facility] [place] [address] PCP - General Family Medicine 08/17/21 documented as of this encounter
--- OUTSIDE RECORDS SUMMARY | 2025-05-02 09:17 | XMS_ITS | Clinical Summary ---
Author Organization [facility] tem Address [id number] [address] [place] [address] Care Team Providers Care Tailor Garment Fitter Name Role Phone JeanieZachary Primary Care Provider [phone] Allergies No known active allergies Medications amLODIPine (NORVASC) 5 mg tablet Take 5 mg by mouth daily. Active anastrozole (ARIMIDEX) 1 mg chemo tablet Take by mouth daily Active atorvastatin (LIPITOR) 10 mg tablet Take 10 mg by mouth daily. Active benazepriL (LOTENSIN) 10 mg tablet Take 10 mg by mouth daily. Active SITagliptin (JANUVIA) 50 mg tablet Take 50 mg by mouth daily. Active metoprolol succinate XL (TOPROL-XL) 200 mg 24 hr tablet Take 200 mg by mouth daily. Active latanoprost (XALATAN) 0.005 % ophthalmic solution 09/21/2021 Active metFORMIN XR (GLUCOPHAGE-XR) 500 mg 24 hr tablet Take 500 mg by mouth 2 (two) times a day with meals. 1 tab AM 0.5 tab PM 09/11/2021 Active cholecalciferol, vitamin D3, 10 mcg (400 unit) capsule Take by mouth daily. Active furosemide (LASIX) 40 mg tablet Take 1 tablet (40 mg total) by mouth 2 (two) times a day before meals. 60 tablet 3 11/26/2021 Active spironolactone (ALDACTONE) 25 mg tablet TAKE 1 TABLET (25 MG TOTAL) BY MOUTH DAILY. 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 Resolved Problems Problem Noted Date Diagnosed Date Resolved Date PAT (paroxysmal atrial tachycardia) 09/06/2021 09/06/2021 Family History Medical History Relation Name Comments Stroke Father Heart attack Mother Relation Name Status Comments Father Mother Social History Tobacco Use Types Packs/Day Years Used Date Smoking Tobacco: Former Smokeless Tobacco: Never Tobacco Cessation:Counseling Given: No Alcohol Use Standard Drinks/Week Comments Yes 0 (1 standard drink = 0.6 oz pur e alcohol) Comments No Sex and Gender Information Value Date Recorded Sex Assigned at Not on file Legal Sex Female 10:16 AM EDT Gender Identity Not on file Sexual Orientation Not on file Last Filed Vital Signs Vital Sign Reading Time Taken Comments Blood Pressure 126/66 12/03/2021 1:36 PM EST Pulse 76 12/03/2021 1:36 PM EST Temperature 36.6 C (97.9 F) 11/17/2021 4:52 AM EST Respiratory Rate 21 11/17/2021 11:39 AM EST Oxygen Saturation 98% 12/03/2021 1:36 PM EST Inhaled Oxygen Concentration - - Weight 53.1 kg (117 lb) 12/03/2021 1:36 PM EST Height 149.9 cm (4' 11 ) 12/03/2021 1:36 PM EST Body Mass Index 23.63 12/03/2021 1:36 PM EST Plan of Treatment Health Maintenance Due Date Last Done Comments Depression Screening 1952 Tobacco Screening 1952 DTaP,Tdap and Td Vaccines (1 - Tdap) 1957 Zoster (Shingles) Vaccine (1 of 2) 1988 Fall Risk Screening 2003 COVID-19 Vaccine (5 - 2023-2 5 season) 2024 10/18/2021, 10/03/2021, 02/01/2021, Additional history exists Influenza Vaccine 08/01/2025 Medical Devices Not on file Insurance [employer] MEDICARE Care Teams Tailor Garment Fitter Relationship Specialty Start Date End Date Zachary Ware DO [address] [facility] [place] [address] PCP - General Family Medicine 08/17/21
--- OUTSIDE RECORDS SUMMARY | 2025-05-02 09:17 | XMS_ITS ---
Author Name Interface, [id number] Address [address] [place] [address] Organization [facility] Address [address] [place] [address] Care Team Providers Care Flame Cutting Supervisor Name Role Phone Jade Mitch Unavailable Unavailable Allergies and Adverse Reactions Medication/Group Name Reaction Severity Date No known allergies Plan Date Type Value 05/28/2021 APPOINTMENT TELE-HEALTH 02/14/2021 APPOINTMENT FOLLOW UP 15 02/14/2021 LABORDER CA 125 02/14/2021 LABORDER CA 125 02/14/[address] Chest/Abdomen /Pelvis IV and PO Contrast 02/14/2021 LABORDER BUN/Creatinine r atio 05/17/2021 LABORDER CA 125 Reason for Visit TELE-HEALTH Encounters Date Name 02/14/2021 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 Diagnostic Results Date Type Test Units Lower Limit Upper Limit Result Flag Comments Status Ordered By Specimen Source Lab Address 02/14 CA 125 Units/ mL 0.0 35.0 <2 Siemens Advia Centaur Chemilumi nescence Immunoass ay FINAL ACL [facility], [address] [place] [address] 02/14 CA 125 Units/ mL 0.0 35.0 <2 Siemens Advia Centaur Chemilumi nescence Immunoass ay CORRECT ED ACL [facility], [address] [place] [phone] Medications Date Name Route Dose Frequency Instructions Start Date End Date Status 05/30/20 21 anastrozole 1 MG Oral Tablet 05/30/20 21 active 05/04/20 21 anastrozole 1 MG Oral Tablet 05/04/20 21 active 11/14/20 20 anastrozole 1 MG Oral Tablet [Arimidex] orally 1.0 tablet every day 11/14/20 20 active Problems Diagnosis Status Date of Diagnosi s Borderline ovarian epithelial tumour Active Postmenopausal bleeding (finding) Active Vulvar dystrophy Active Vital Signs Date Type Value 02/14/2021 Body Temperature 97.70 02/14/2021 Heart Beat 74.00 02/14/2021 Oxygen Saturation 98.00 02/14/2021 BSA 1.56 02/14/2021 Weight 135.00 02/14/2021 Height 59.00 02/14/2021 BMI 27.27 02/14/2021 Intravascular Systolic 174 02/14/2021 Intravascular Diastolic 64
--- OUTSIDE RECORDS SUMMARY | 2025-05-02 09:17 | XMS_ITS | Encounter Summary ---
Author Organization [facility] tem Address [id number] [address] [place] [address] Care Team Providers Care Wood Gouger Name Role Phone Zachary Ware DO Primary Care Provider + [phone] Encounter Details Date Type Department Care Team (Late st Contact Info) Description 09/18/2022 [facility] Only [facility] Family [facility] [address] [place] [address] External, Scanning Provider Social History [...] Procedure Name Priority Date/Time Associated Diagnosis Comments MULTIPLE LABS Routine 09/10/2022 documented in this encounter Results * Multiple labs (09/10/2022) 09/10/2022 us Scanning Provider External [place] IMAGING Final Result MANUALLY TRANSCRIBED RESULTS documented in this encounter Visit Diagnoses Not on filedocumented in this encounter Care Teams Wood Gouger Relationship Specialty Start Date End Date Zachary Ware DO [address] [place] [address] PCP - General Family Medicine 08/17/21 documented as of this encounter
--- OUTSIDE RECORDS SUMMARY | 2025-05-02 09:17 | XMS_ITS | Encounter Summary ---
Author Organization [facility] Jay[facility]ore Sy tem Address [id number] [address] [place] [address] Care Team Providers Care Paper Winder Name Role Phone Zachary Ware DO Primary Care Provider [phone] Reason for Visit * Reason Comments Med Refill Encounter Details Date Type Department Care Team (Late st Contact Info) Description 09/21/2022 Refill [facility] Internal Medicine - Family Medicine [address] [place] [address] Zachary Ware DO [address] [facility] [address] Social History Tobacco Use Types Packs/Day Years [...] on filedocumented in this encounter Care Teams Paper Winder Relationship Specialty Start Date End Date Zachary Ware DO [address] [facility] [place] [address] PCP - General Family Medicine 08/17/21 documented as of this encounter
--- OUTSIDE RECORDS SUMMARY | 2025-05-02 09:17 | XMS_ITS | Encounter Summary ---
Author Organization [facility] tem Address [id number] [address] [place] [address] Care Team Providers Care Before School Name Role Phone Zachary Ware DO Primary Care Provider [phone] Encounter Details Date Type Department Care Team (Late st Contact Info) Description 08/26/2022 Orders Only [facility] Internal Medicine - Family Medicine [address] [place] [address] External, Scanning Provider Social History [...] Procedure Name Priority Date/Time Associated Diagnosis Comments ECHO DOPPLER Routine 08/26/2022 documented in this encounter Results * Echo Doppler (08/26/2022) Anatomical Region Laterality Modality Chest N/A Ultrasound us Scanning Provider External CV ECHO ORDERABLES Fi nal Result documented in this encounter Visit Diagnoses Not on filedocumented in this encounter Care Teams Before School Relationship Specialty Start Date End Date Zachary Ware DO [address], [address] [place], [place] [address] PCP - General Family Medicine 08/17/21 documented as of this encounter
--- OUTSIDE RECORDS SUMMARY | 2025-05-02 09:17 | XMS_ITS | Encounter Summary ---
Author Organization [facility] Address [address] [place] [address] Care Team Providers Care Jig Boring Machine Operator For Metal Name Role Phone Stephanie, Elmira G Unavailable [phone] Elmira Brown DO Primary Care Provider [phone] Kim Santiago LPN Unavailable [phone] Lexy Mei MD Primary Care Provider [phone] Soraida Bethea SPRINKLER INSPECTOR Unavailable [phone] Reason for Referral * Imaging (Routine) - Closed Specialty Diagnoses / Procedures Referred By Maureen reyes Referred To Contact Radiology Diagnoses Conductive hearing loss, bilateral Procedures MR brain w and wo contrast IACs Juan Jackson DO [address] [place] [address] Phone: tel: fax: [facility] [address] [place] [address] Phone: tel: fax: Referral ID Status Reason Start Date Expiration Date Visits Re quested Visits Authorized [id number] Closed 04/21/2023 10/18/2023 1 1 Encounter Details Date Type Department Care Team (Late st Contact Info) Description 04/21/2023 Orders Only [facility] [place] [address] [place] [address] [place], [place] Conductive hearing loss, bilateral (Primary Dx) Social History Tobacco Use Types Packs/Day Years Used Date Smoking Tobacco: Never Passive Smoke Exposure: Never Smokeless Tobacco: Never Alcohol Use Standard Drinks/Week Comments Yes 1 (1 standard drink = 0.6 oz pur e alcohol) Comments Unknown Sex and Gender Information Value Date Recorded Sex Assigned at Not on file Legal Sex Female 7:51 PM EDT Gender Identity Not on file Sexual Orientation Not on file documented as of this encounter Plan of Treatment Not on file documented as of this encounter Results * MR brain w and wo contrast IACs (05/05/2023 12:15 PM EDT) Anatomical Region Laterality Modality Brain Magnetic Resonan ce 05/05/2023 1:09 PM EDT Impressions 05/05/2023 1:13 PM EDT Motion limited study. 1. No acute intracranial abnormality or finding to explain hearing loss. 2. Age-related volume loss and mild chronic small vessel disease. ELECTRONICALLY SIGNED BY: José Antonio Krishna MD Narrative 05/05/2023 1:13 PM EDT EXAM: MR BRAIN W AND WO CONTRAST (IACS) [id number] HISTORY: Conductive hearing loss, bilateral. Left ear hearing loss over 2-3 years getting worse. Slight headache. History of cervical cancer. COMPARISON: None. TECHNIQUE: Multiplanar multisequence 1.5 Romana MRI of the brain and IACs was performed before and after IV gadolinium (MultiHance). FINDINGS: Image quality is somewhat degraded by motion artifact, especially on the postcontrast sequences. The patient is claustrophobic, did take medication, but still had difficulty tolerating the exam. There is age-related cerebral volume loss. The ventricles are proportional and show no evidence of acute hydrocephalus. The basal cisterns are patent. There is a mild degree of T2 FLAIR hyperintense signal in the periventricular and subcortical white matter. No acute infarct or hemorrhage. No mass, mass effect, midline shift or abnormal extra-axial fluid collection is identified. No abnormal enhancement is identified. No abnormal signal or enhancement is seen in the internal auditory canals. The posterior fossa structures and visualized cervical spine appear normal. The major arterial and venous flow-voids are patent. No acute abnormality in the orbits. No significant paranasal sinus or mastoid air cell disease. The scalp soft tissues are unremarkable. The calvarium, skull base and visualized facial bones appear normal. Procedure Note José Antonio Krishna MD - 05/05/2023 EXAM: MR BRAIN W AND WO CONTRAST (IACS) [id number] HISTORY: Conductive hearing loss, bilateral. Left ear hearing loss over2-3 years getting worse. Slight headache. History of cervical cancer. COMPARISON: None. TECHNIQUE: Multiplanar multisequence 1.5 Romana MRI of the brain and IACswas performed before and after IV gadolinium (MultiHance). FINDINGS: Image quality is somewhat degraded by motion artifact,especially on the postcontrast sequences. The patient is claustrophobic,did take medication, but still had difficulty tolerating the exam. There is age-related cerebral volume loss. The ventricles are proportionaland show no evidence of acute hydrocephalus. The basal cisterns arepatent. There is a mild degree of T2 FLAIR hyperintense signal in theperiventricular and subcortical white matter. No acute infarct or hemorrhage. No mass, mass effect, midline shift orabnormal extra-axial fluid collection is identified. No abnormalenhancement is identified. No abnormal signal or enhancement is seen inthe internal auditory canals. The posterior fossa structures and visualized cervical spine appearnormal. The major arterial and venous flow-voids are patent. No acuteabnormality in the orbits. No significant paranasal sinus or mastoid aircell disease. The scalp soft tissues are unremarkable. The calvarium,skull base and visualized facial bones appear normal. IMPRESSION: Motion limited study. 1. No acute intracranial abnormality or finding to explain hearing loss. 2. Age-related volume loss and mild chronic small vessel disease. ELECTRONICALLY SIGNED BY: José Antonio Krishna MD Juan Jackson DO IMG MRI PROCEDURES Final Re sult documented in this encounter Visit Diagnoses Diagnosis Conductive hearing loss, bilateral- Primary Conductive hearing loss, bilateral documented in this encounter Care Teams Jig Boring Machine Operator For Metal Relationship Specialty Start Date End Date Elmira Brown DO [address] [facility] [address] [place] [id number] PCP - [employer] 05/31/21 Elmira Brown DO [address] [facility] [address] [place] [address] PCP - General Family Medicine 04/09/23 01/11/24 Lexy Mei MD [address] [place] [address] PCP - General Family Medicine 01/12/24 Kim Santiago LPN Licensed Practical Nurse Family Medicine 12/24/2312/03 Soraida Bethea NP [address] [place] [address] Nurse Practitioner Family Medicine 01/12/24 documented as of this encounter
--- OUTSIDE RECORDS SUMMARY | 2025-05-02 09:17 | XMS_ITS | Encounter Summary ---
Author Organization [facility] [employer] [facility] tem Address [id number] [address] [place] [address] Care Team Providers Care Modeling Director Name Role Phone Zachary Ware DO Primary Care Provider [phone] Reason for Visit * Reason Comments Med Refill Encounter Details Date Type Department Care Team (Late st Contact Info) Description 01/17/2023 Refill [facility] Internal Medicine - Family Medicine [address] [place] [address] Zachary Ware DO [address] [employer] [facility] [place] [address] Essential (primary) hypertension Social History Tobacco Use Types Packs/Day Years [...] as of this encounter Visit Diagnoses Diagnosis Essential (primary) hypertension Unspecified essential hypertension documented in this encounter Care Teams Modeling Director Relationship Specialty Start Date End Date Zachary Ware DO [address] CASH[address]awn[address] [facility] [place] [place] [address] PCP - General Family Medicine 08/17/21 documented as of this encounter
--- OUTSIDE RECORDS SUMMARY | 2025-05-02 09:17 | XMS_ITS | Encounter Summary ---
Author Organization [facility] Address [address] [place] [address] Care Team Providers Care Textile Examiner Name Role Phone Lexy Mei MD Primary Care Provider [phone] Elmira Brown DO Primary Care Provider [phone] Soraida Bethea NP Primary Care Provider Unavailable Reason for Visit * Reason Comments Med Refill Encounter Details Date Type Department Care Team (Late st Contact Info) Description 04/14/2023 Refill [facility] Cardiology [address] [place] [address] Latosha Sesay CNP [address] [place] [address] Paroxysmal atrial fibrillation (CMS/HCC) Social History Tobacco Use Types Packs/Day Years Used Date Smoking Tobacco: Former Cigarettes Smokeless Tobacco: Never Alcohol Use Standard Drinks/Week Comments Yes 0 (1 standard drink = 0.6 oz pur e alcohol) occasional social Sex and Gender Information Value Date Recorded Sex Assigned at Not on file Gender Identity Not on file Sexual Orientation Not on file COVID-19 Exposure Response Date Recorded In the last 10 days, have yo u been in contact with someone who was confirmed or suspected to have Coronavirus/COVID-19? No / Unsure 04/16/2023 1:21 PM EDT documented as of this encounter Plan of Treatment Upcoming Encounters Date Type Department Care Team (Late st Contact Info) Description 05/16/2025 10:00 AM EDT Office Visit [facility] [address] [place] [address] Corbin Wright MD [address] [facility] [address] [facility] [place] [address] documented as of this encounter Visit Diagnoses Diagnosis Paroxysmal atrial fibrillation (CMS/HCC) Atrial fibrillation documented in this encounter Care Teams Textile Examiner Relationship Specialty Start Date End Date Lexy Mei MD PCP - General 09/06/22 09/09/23 Elmira Brown DO PCP - General Family Medicine 09/10/23 05/26/24 Soraida Bethea NP [address] [place] [address] PCP - General Internal Medicine 05/27/24 documented as of this encounter
--- OUTSIDE RECORDS SUMMARY | 2025-05-02 09:17 | XMS_ITS | Clinical Summary ---
Author Organization [facility] Address [address] [place] [address] Care Team Providers Care Vacuum Cooker Operator Name Role Phone Elmira Brown DO Unavailable [phone] Lexy Mei MD Primary Care Provider [phone] Soraida Bethea PROFESSOR OF NURSING Unavailable [phone] Allergies No known active allergies Medications anastrozole (Arimidex) 1 MG chemo tablet Take 1 mg by mouth Daily. Active apixaban (Eliquis) 2.5 MG tablet Take 2.5 mg by mouth in the morning and 2.5 mg before bedtime. Active cholecalciferol (Vitamin D3) 25 MCG (1000 UT) tablet Take 25 mcg by mouth in the morning. Active docusate sodium (Colace) 100 MG capsule Take 100 mg by mouth in the morning. Active furosemide (Lasix) 40 MG tablet Take 40 mg by mouth in the morning and 40 mg before bedtime. Patient takes 40mg in AM and 20mg PM. Active latanoprost (Xalatan) 0.005 % ophthalmic solution latanoprost 0.005 % eye drops 09/21/20 21 Active Alcohol Swabs (DropSafe Alcohol Prep) 70 % pads 04/08/20 23 Active Blood Glucose Monitoring Suppl (True Metrix Meter) w/Device kit 08/20/20 22 Active TRUEplus Lancets 28G miscIndications:Ty pe 2 diabetes mellitus with chronic kidney disease, without long-term current use of insulin, unspecified CKD stage (CMS/HCC) Inject 1 Lancet under the skin in the morning. 100 each 3 08/20/20 23 Active glucose blood (True Metrix Blood Glucose Test) test stripIndications:T ype 2 diabetes mellitus with chronic kidney disease, without long-term current use of insulin, unspecified CKD stage (CMS/HCC) Check fasting glucose once daily 100 strip 3 08/20/20 23 Active empagliflozin (Jardiance) 10 MG Take 10 mg by mouth in the morning. 01/06/20 24 Active metoprolol succinate XL (Toprol-XL) 200 MG 24 hr tabletIndications: Primary hypertension (CMS/HCC) TAKE 1 TABLET EVERY DAY 90 tablet 3 08/03/20 24 Active atorvastatin (Lipitor) 10 MG tabletIndications: Mixed hyperlipidemia (CMS/HCC) TAKE 1 TABLET EVERY DAY 90 tablet 3 08/11/20 24 Active amLODIPine (Norvasc) 5 MG tabletIndications: Primary hypertension (CMS/HCC) TAKE 1 TABLET EVERY DAY 90 tablet 3 10/01/20 24 Active benazepril (Lotensin) 10 MG tabletIndications: Primary hypertension (CMS/HCC) TAKE 1 TABLET EVERY DAY 90 tablet 3 10/15/20 24 Active SITagliptin (Januvia) 50 MG tabletIndications: Type 2 diabetes mellitus with chronic kidney disease, without long-term current use of insulin, unspecified CKD stage (CMS/HCC) Take 1 tablet (50 mg) by mouth Daily 90 tablet 3 02/01/20 25 Active Active Problems Problem Noted Date Diagnosed Date Acquired absence of both cervix and uterus 04/09 Acquired absence of ovaries, bilateral Bilateral hearing loss 04/09/2023 Chronic heart failure 04/09/2023 Essential hypertension 04/09/2023 Memory impairment 04/09/2023 Mitral valve stenosis and regurgitation 04/09/20 23 Mixed conductive and sensori neural hearing loss of right ear with restricted hearing of left ear 04/09/2023 Mixed hyperlipidemia 04/09/2023 Permanent atrial fibrillation 04/09/2023 Pulmonary hypertension 04/09/2023 Stage 3b chronic kidney disease (HCC) 04/09/2023 Type 2 diabetes mellitus wit h diabetic chronic kidney disease 04/09/2023 Borderline epithelial neoplasm of ovary 03/12/20 23 Longstanding persistent atrial fibrillation 05/2022 Chronic diastolic heart failure 12/28/2021 Overview (05/11/2023): Last Assessment & Plan: NYHC II, currently euvolemic without exacerbation Continue GDMT- lasix 40 mg, spironolactone 25 mg Continue daily weights, fluid restrictions, and low sodium diet. Call office for concerns- weight gain, increased shortness of breath, orthopnea or leg swelling. 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 Chronic obstructive pulmonary disease 04/04/2021 Serous cystadenoma of left ovary 11/21/2020 Aortic atherosclerosis 10/27/2020 Overview (01/12/2024): Noted on CXR 10/03/20 Noted on CXR 10/03/20 Type 2 diabetes mellitus wit h diabetic peripheral angiopathy without gangrene 04/28/2020 Overview (01/12/2024): Has PAD - per coding guidelines Has PAD - per coding guidelines Varicose veins of right lower extremity 09/11/20 17 Spondylolisthesis of lumbar region 04/20/2015 Resolved Problems Problem Noted Date Diagnosed Date Resolved Date Dystrophy of vulva 01/12/2024 4 Bilateral tinnitus 04/09/2023 4 Intrinsic eczema 04/09/2023 01/17/2024 Left rotator cuff tear 04/09/202301/17 Malignant neoplasm of ovary 04/09/2023 01/17/2024 Stage 3a chronic kidney disease (HCC) 04/09/2023 01/17/2024 Tear of left supraspinatus tendon 04/09/2023 01/17/2024 Noninflammatory disorder of vulva and perineum, unspecified 03/12/2023 01/17/2024 Primary hypertension 02/28/2023 024 Hypertensive disorder 12/28/20212023 Hyperlipidemia 12/28/2021 01/17/2024 Overview (05/11/2023): Last Assessment & Plan: Continue lipitor 10 mg daily Stage 3 chronic kidney disease (HCC) 12/28/2021 01/17/2024 Heart failure 10/16/2021 01/17/2024 Gross hematuria 09/26/2021 01/17/2024 Postmenopausal bleeding 09/26/202101/01 Well woman exam without gynecological exam 12/29/2018 01/17/2024 Arm pain, anterior, right 02/22/2016 Left shoulder tendonitis 02/22/2016 Low back pain 04/20/2015 01/17/2024 Lumbar disc narrowing 04/20/20152023 Lumbar radiculopathy, acute 04/20/2015 01/17/2024 Encounters Date Type Department Care Team Description 02/01/2025 Telephone [facility] [address] [place] [address] Lucila Elena MA 01/31/2025 10:30 AM EST Office Visit [facility] [address] [place] [address] Soraida Bethea PROFESSOR OF NURSING Encounter for annual wellness exam in Medicare patient (Primary Dx); Chronic heart failure, unspecified heart failure type (CMS/HCC); Essential hypertension (CMS/HCC) ; Mixed hyperlipidemia (CMS/HCC) ; Permanent atrial fibrillation (CMS/HCC); Pulmonary hypertension (CMS/HCC); Stage 3b chronic kidney disease (HCC) (CMS/HCC); Type 2 diabetes mellitus with chronic kidney disease, without long-term current use of insulin, unspecified CKD stage (CMS/HCC); Longstanding persistent atrial fibrillation (CMS/HCC); Acute diastolic heart failure (CMS/HCC) ; Chronic diastolic heart failure (CMS/HCC) ; Malignant neoplasm of ovary, unspecified laterality (CMS/HCC); Type 2 diabetes mellitus without complication, without long-term current use of insulin (CMS/HCC); Aortic atherosclerosis (CMS/HCC); Chronic obstructive pulmonary disease, unspecified COPD type (CMS/HCC); Type 2 diabetes mellitus with diabetic peripheral angiopathy without gangrene, without long-term current use of insulin (CMS/HCC); Varicose veins of right lower extremity, unspecified whether complicated; Screening for deficiency anemia; Mitral valve stenosis and regurgitation; Rheumatic aortic stenosis; Rheumatic mitral regurgitation; Acquired absence of both cervix and uterus; Acquired absence of ovaries, bilateral; Borderline epithelial neoplasm of ovary; 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; Serous cystadenoma of left ovary; Bilateral hearing loss, unspecified hearing loss type; Memory impairment; Mixed conductive and sensorineural hearing loss of right ear with restricted hearing of left ear 01/31/2025 Mobile Active Defense flowsheet [facility] [address] [place] [address] Soraida Bethea NP 01/31/2025 Travel from Last 3 Months Immunizations Immunization Administration Dates Next Due DTP 01/13/2023 Influenza, High Dose Seasona l, Preservative Free 01/10/2025 Influenza, High-dose Seasona l, Quadrivalent, Preservative Free 09/02/2022,11/21/2020 Influenza, Seasonal, Quadriv alent, Adjuvanted 09/15/2023 Moderna SARS-CoV-2 Vaccination ,10/03/2021,02/01/2021,01/04 Pneumococcal Polysaccharide PPSV23 09/01/2008 RSV, recombinant, protein ceja bunit RSVpreF, adjuvant reconstitu, 120mcg/0.5mL, PF (Arexvy) 01/10/2025 Tdap 05/11/2021 Family History Medical History Relation Name Comments Heart disease Brother Heart disease Father Stroke Mother Parkinsonism Sister Relation Name Status Comments Brother Father Mother Sister Social History Tobacco Use Types Packs/Day Years Used Date Smoking Tobacco: Never Passive Smoke Exposure: Never Smokeless Tobacco: Never Tobacco Cessation:Counseling Given: Not Answered Alcohol Use Standard Drinks/Week Comments Yes 2 (1 standard drink = 0.6 oz pur e alcohol) caffeine intake: none PHQ-2 Answer Date Recorded Patient Health Questionnaire-2 Score 0 01/31/2025 Comments Unknown Sex and Gender Information Value Date Recorded Sex Assigned at Not on file Legal Sex Female 7:51 PM EDT Gender Identity Not on file Sexual Orientation Not on file Last Filed Vital Signs Vital Sign Reading Time Taken Comments Blood Pressure 136/80 01/31/2025 10:33 AM EST Pulse 92 01/12/2024 11:02 AM EST Temperature 36.2 C (97.1 F) 01/31/2025 10:33 AM EST Respiratory Rate 18 01/12/2024 11:02 AM EST Oxygen Saturation 99% 01/12/2024 11:02 AM EST Inhaled Oxygen Concentration - - Weight 54 kg (119 lb) 01/31/2025 10:33 AM EST Height 139.7 cm (4' 7 ) 01/31/2025 10:33 AM EST Body Mass Index 27.66 01/31/2025 10:33 AM EST Plan of Treatment Health Maintenance Due Date Last Done Comments Diabetes: Retinopathy Screening 1950 Diabetes: Urine Protein Screening 1959 Pneumococcal Vaccine: 65+ Ye ars (2 of 2 - PCV) 09/01/2009 09/01/2008 Diabetes: Hemoglobin A1C 05/03/2025 025, 02/05/2023, 11/06/2022, Additional history exists Medicare Annual Wellness (AWV) 01/31/2026 0 01/31/2025, 01/31/2025, 01/12/2024, Additional history exists Influenza Vaccine Completed 01/10/2025, , 09/02/2022, Additional history exists Procedures Procedure Name Priority Date/Time Associated Diagnosis Comments HEMOGLOBIN A1C Routine 01/31/2025 11:03 AM EST Type 2 diabetes mellitus with chronic kidney disease, without long-term current use of insulin, unspecified CKD stage (CMS/HCC) TSH W/REFLEX TO FT4 Routine 01/31/2025 1 1:03 AM EST Encounter for annual wellness exam in Medicare patient LIPID PANEL Routine 01/31/2025 11:03 AM EST Encounter for annual wellness exam in Medicare patient Mixed hyperlipidemia (CMS/HCC) from Last 3 Months Results * TSH W/REFLEX TO FT4 (01/31/2025 11:03 AM EST) TSH W/REFLEX TO FT4 2.94 0.40 - 4.50 mIU/L [facility] 01/31/2025 11:0 3 AM EST 01/31/2025 11:03 AM EST Narrative Resulting Agency Comment Performing Organization Information Site ID: QPT Name: [facility] Address: [address] [place] [address], [address] [place] [id number] Director: Matt Beasley MD Soraida Bethea NP LAB BLOOD ORDERABLES Fi nal Result [facility] * (ABNORMAL) Hemoglobin A1c (01/31/2025 11:03 AM EST) Hemoglobin A1C 7.1(H) <5.7 % of total Hgb [facility] Comment: For someone without known diabetes, a hemoglobin A1c value of 6.5% or greater indicates that they may have diabetes and this should be confirmed with a follow-up test. For someone with known diabetes, a value <7% indicates that their diabetes is well controlled and a value greater than or equal to 7% indicates suboptimal control. A1c targets should be individualized based on duration of diabetes, age, comorbid conditions, and other considerations. Currently, no consensus exists regarding use of hemoglobin A1c for diagnosis of diabetes for children. Blood Venous blood specimen / Unknown 01/31/2025 11:03 AM EST 01/31/2025 11:03 AM EST Narrative Resulting Agency Comment Performing Organization Information Site ID: QPT Name: [facility] Address: [address] [facility], [address] [place] [address] Director: Matt Beasley MD us Soraida Bethea PROFESSOR OF NURSING LAB BLOOD ORDERABLES Fi nal Result Performing Organization Address [facility] de Phone Number [facility] * Lipid panel (01/31/2025 11:03 AM EST) CHOLESTEROL, TOTAL 178 <200 mg/dL [facility] HDL CHOLESTEROL 65 > OR = 50 mg/dL [facility] TRIGLYCERIDES 113 <150 mg/dL [facility] LDL-CHOLESTEROL 92 mg/dL (calc) [facility] Comment: Reference range: <100 Desirable range <100 mg/dL for primary prevention; <70 mg/dL for patients with CHD or diabetic patients with > or = 2 CHD risk factors. LDL-C is now calculated using the Hollis calculation, which is a validated novel method providing better accuracy than the Friedewald equation in the estimation of LDL-C. Sawyer YIP et al. TORY. 2013;310(19): 9104-7631 (http://education.Wordeo/faq/VWQ440) CHOL/HDLC RATIO 2.7 <5.0 (calc) [facility] NON HDL CHOLESTEROL 113 <130 mg/dL (calc) [facility] Comment: For patients with diabetes plus 1 major ASCVD risk factor, treating to a non-HDL-C goal of <100 mg/dL (LDL-C of <70 mg/dL) is considered a therapeutic option. Blood Venous blood specimen / Unknown 01/31/2025 11:03 AM EST 01/31/2025 11:03 AM EST Narrative Resulting Agency Comment Performing Organization Information Site ID: QPT Name: [facility] Address: [address] [facility], [address] [place] [address] Director: Matt Beasley MD us Soraida Bethea PROFESSOR OF NURSING LAB BLOOD ORDERABLES Fi nal Result Performing Organization Address [facility] de Phone Number [facility] from Last 3 Months Insurance [facility] MEDICARE ADVANTAGE Care Teams Vacuum Cooker Operator Relationship Specialty Start Date End Date Elmira Brown DO [address] [facility] [address] [place] [address] PCP - [employer] 05/31/21 Lexy Mei MD [address] [place] [address] PCP - General Family Medicine 01/12/24 Soraida Bethea NP [address] [place], [place] [id number] Nurse Practitioner Family Medicine 01/12/24
--- OUTSIDE RECORDS SUMMARY | 2025-05-02 09:17 | XMS_ITS | Encounter Summary ---
Author Organization [facility] Address [address] [place] [address] Care Team Providers Care Stamping Machine Operator Name Role Phone Elmira Brown DO Unavailable [phone] Elmira Brown DO Primary Care Provider [phone] Kim Santiago LPN Unavailable [phone] Lexy Mei MD Primary Care Provider [phone] Soraida Bethea CONTENT CURATOR Unavailable [phone] Reason for Visit * Reason Comments New Med Request Encounter Details Date Type Department Care Team (Late Contact Info) Description 08/20/2023 Refill [facility] [address] [place] [address] Elmira Brown DO [address] [facility] [address] [place] [address] Social History Tobacco Use Types Packs/Day Years Used Date Smoking Tobacco: Never Passive Smoke Exposure: Never Smokeless Tobacco: Never Alcohol Use Standard Drinks/Week Comments Yes 2 (1 standard drink = 0.6 oz pur e alcohol) caffeine intake: none Comments Unknown Sex and Gender Information Value Date Recorded Sex Assigned at Not on file Legal Sex Female 7:51 PM EDT Gender Identity Not on file Sexual Orientation Not on file documented as of this encounter Plan of Treatment Not on file documented as of this encounter Visit Diagnoses Not on filedocumented in this encounter Care Teams Stamping Machine Operator Relationship Specialty Start Date End Date Elmira Brown DO [address] [facility] [address] [place] [address] PCP - [employer] 05/31/21 Elmira Brown DO [address] [facility] [address] [place] [address] PCP - General Family Medicine 04/09/23 01/11/24 Lexy Mei MD [address] [place] [place] [address] PCP - General Family Medicine 01/12/24 Kim Santiago LPN Licensed Practical Nurse Family Medicine 12/24/2312/03 Soraida eBthea NP [address] [facility] [address] [place], [place] [id number] Nurse Practitioner Family Medicine 01/12/24 documented as of this encounter
--- OUTSIDE RECORDS SUMMARY | 2025-05-02 09:17 | XMS_ITS | CCD ---
Author Name Interface, [id number] Address [address] [address] Organization [facility] Address [address] [address] Care Team Providers Care Application Support Intern Name Role Phone JadeMitch mojica Unavailable Unavailable Allergies and Adverse Reactions Medication/Group Name Reaction Severity Date No known allergies Care Plan Date Type Value APPOINTMENT EKG APPOINTMENT Cardiology Consu lt APPOINTMENT Imaging APPOINTMENT Lab APPOINTMENT Medical clearanc e APPOINTMENT Consult order APPOINTMENT CT Chest/Abdomen /Pelvis IV and PO Contrast APPOINTMENT BUN/Creatinine r atio APPOINTMENT Anastrozole APPOINTMENT Anastrozole APPOINTMENT CA 125 09/26/2020 LABORDER CBC w/ auto diff 09/26/2020 LABORDER Routine chest X- ray 09/26/2020 LABORDER CMP 09/26/2020 LABORDER PT/PTT panel 09/26/[address] chest/abdomen /pelvis w/ & w/o contrast 11/14/2020 LABORDER CA 125 02/14/[address] Chest/Abdomen /Pelvis IV and PO Contrast 02/14/2021 LABORDER BUN/Creatinine r atio Reason for Visit TELE-HEALTH Encounters Date Name 05/28/2021 Borderline ovarian e pithelial tumour Problems Diagnosis Status Date of Diagnosi s Borderline ovarian epithelial tumour Active Postmenopausal bleeding (finding) Active Vulvar dystrophy Active Social History Date Name Value 09/26/2020 Sex Female
--- OUTSIDE RECORDS SUMMARY | 2025-05-02 09:17 | XMS_ITS | Encounter Summary ---
Author Organization [facility] [employer] Address [id number] [address] [place] [address] Care Team Providers Care Certified Activities Director Name Role Phone Zachary Ware DO Primary Care Provider [phone] Reason for Visit * Reason Comments Med Refill Encounter Details Date Type Department Care Team (Late st Contact Info) Description 05/19/2023 Refill [facility] - Family Medicine [address] [place] [address] Zachary Ware DO [address] [facility] [place] [place] [address] Social History Tobacco Use Types Packs/Day Years [...] on filedocumented in this encounter Care Teams Certified Activities Director Relationship Specialty Start Date End Date Zachary Ware DO [address] [facility] [place] [address] PCP - General Family Medicine 08/17/21 documented as of this encounter
--- OUTSIDE RECORDS SUMMARY | 2025-05-02 09:17 | XMS_ITS ---
Author Name Interface, [id number] Address [address] [place], [place] [address] Organization [facility] Address [address] [place] [address] Care Team Providers Care Service Station Console Operator Name Role Phone Delia Spring Unavailable Unavailable Allergies and Adverse Reactions Medication/Group Name Reaction Severity Date No known allergies Plan Date Type Value 05/28/2021 APPOINTMENT TELE-HEALTH Reason for Visit TELE-HEALTH Encounters Date Name 05/28/2021 Borderline ovarian e pithelial tumour 05/28/2021 Vulvar dystrophy Medications Date Name Route Dose Frequency Instructions [...]
--- OUTSIDE RECORDS SUMMARY | 2025-05-02 09:17 | XMS_ITS | Clinical Summary ---
Author Organization [facility] Address [address] [place] [address] Care Team Providers Care Side Panel Hanger Name Role Phone Elmira Brown Primary Care Provider [phone] Allergies No known active allergies Medications benazepril (LOTENSIN) 10 MG tablet 1 tablet daily 1 Active metFORMIN (GLUCOPHAGE-XR ) 500 MG extended release tablet Take 1 tablet in the morning and 1/2 tablet in the evening 1 Active metoprolol succinate (TOPROL XL) 200 MG extended release tablet daily 1 Active atorvastatin (LIPITOR) 10 MG tablet daily 1 Active pioglitazone (ACTOS) 30 MG tablet daily 1 Active JANUVIA 100 MG tablet Take 0.5 tablets by mouth daily 1 Active VITAMIN D, CHOLECALCIFERO L, PO Take 1,000 Units by mouth daily Active amLODIPine (NORVASC) 5 MG tablet Take 1 tablet by mouth daily Active ELIQUIS 2.5 MG TABS tablet TAKE ONE TABLET BY MOUTH EVERY TWELVE HOURS 2 Active furosemide (LASIX) 20 MG tablet Take 2 tablets by mouth 2 times daily 1 Active latanoprost (XALATAN) 0.005 % ophthalmic solution INSTILL 1 DROP INTO EYES EVERY NIGHT 2 Active spironolactone (ALDACTONE) 25 MG tablet spironolactone 25 mg tablet Take 1 tablet every day by oral route for 90 days. 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 Take 1 tablet by mouth daily 90 tablet 3 4 Active Calcium Carb-Cholecalc iferol (CALCIUM CREAMIES) 600-10 MG-MCG CHEWIndication s:At risk for bone density loss,FCI (current) use of aromatase inhibitors Take 2 tablets by mouth daily (with breakfast) 360 tablet 4 Active Additional Information Patient not taking.Reported on 03/18/2025 Active Problems Problem Noted Date Diagnosed Date Persistent atrial fibrillation 02/28/2023 Primary hypertension 02/28/2023 Diabetes mellitus 02/28/2023 Heart failure 10/16/2021 Gross hematuria 09/26/2021 Postmenopausal bleeding 09/26/2021 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 (Primary Dx); [facility]CI (current) use of aromatase inhibitors 03/15/2025 Orders Only [facility] [address] [place] [address] [id number] [place] [address] Gemma Clements At risk for bone density loss; FCI (current) use of aromatase inhibitors 03/09/2025 10:56 AM EDT - 03/09/2025 11:59 PM EDT Hospital Encounter [facility] [address] [place] [address] 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 Discharge Disposition: Home or Self Care from Last 3 Months Social History Tobacco Use Types Packs/Day Years Used Date Smoking Tobacco: Never Smokeless Tobacco: Never Tobacco Cessation:Counseling Given: Not Answered Alcohol Use Standard Drinks/Week Comments Yes 1 (1 standard drink = 0.6 oz pur e alcohol) Comments No Sex and Gender Information Value Date Recorded Sex Assigned at Not on file Legal Sex Female 10:13 AM EDT Gender Identity Not on file Sexual Orientation Not on file Last Filed Vital Signs Vital Sign Reading Time Taken Comments Blood Pressure 135/81 03/18/2025 10:31 AM EDT Pulse 67 03/18/2025 10:31 AM EDT Temperature 36.3 C (97.3 F) 09/17/2024 10:21 AM EDT Respiratory Rate - - Oxygen Saturation 97% 03/18/2025 10:31 AM EDT Inhaled Oxygen Concentration - - Weight 54.4 kg (120 lb) 03/18/2025 10:31 AM EDT Height 149.9 cm (4' 11 ) 03/18/2025 10:31 AM EDT Body Mass Index 24.24 03/18/2025 10:31 AM EDT Plan of Treatment Upcoming Encounters Date Type Department Care Team (Late st Contact Info) Description 09/16/2025 11:00 AM EDT Office Visit [facility] [address] [place] [address] Theresa Valenzuela PA-C [address] [facility] [address] [facility] [address] [place] [address] 6mfu Health Maintenance Due Date Last Done Comments Lipids 1948 Depression Screen 1950 Shingles vaccine (1 of 2) 1988 Pneumococcal 50+ years Vaccine (2 of 2 - PCV) 09/01/2009 09/01/2008 COVID-19 Vaccine ( season) 2024 10/18/2021, 10/03/2021, 02/01/2021, Additional history exists Annual Wellness Visit (Medicare Advantage) 12/01/2024 DTaP/Tdap/Td vaccine (3 - Td or Tdap) 01/13/2033 01/13/2023, 05/11/2021 Flu vaccine Completed 01/10/2025, 08/31, 09/02/2022, Additional history exists Respiratory Syncytial Virus (RSV) or age 60 yrs+ Completed 01/10/2025 DEXA (modify frequency per FRAX score) Discontinued 03/15/2025, 11/13/2022 Hepatitis A vaccine Aged Out No longe r eligible based on patient's age to complete this topic Hepatitis B vaccine Aged Out No longe r eligible based on patient's age to complete this topic Hib vaccine Aged Out No longer eligi ble based on patient's age to complete this topic Meningococcal (ACWY) vaccine Aged Out No longer eligible based on patient's age to complete this topic Meningococcal B vaccine Aged Out No l onger eligible based on patient's age to complete this topic Polio vaccine Aged Out No longer elig ible based on patient's age to complete this topic Procedures Procedure Name Priority Date/Time Associated Diagnosis Comments DEXA BONE DENSITY AXIAL SKELETON Routine 03/15/2025 At risk for bone density loss FCI (current) use of aromatase inhibitors CA 125 Routine 03/09/2025 10:57 AM EDT 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 Results obtained with different assay methods cannot be used interchangeably. Blood BLOOD SPECIMEN / Unknown 03/09/2025 10:57 AM EDT 03/09/2025 10:58 AM EDT us Theresa Valenzuela PA-C CHEMISTRY ORDERABLES Final Re sult [facility] [address] [place] [address], [facility] [phone] [facility] [address] [place] [address], [facility] [phone] from Last 3 Months Insurance [employer] MEDICARE Care Teams Side Panel Hanger Relationship Specialty Start Date End Date Elmira Brown DO [address] [place] [address] PCP - General 02/28/23
--- OUTSIDE RECORDS SUMMARY | 2025-05-02 09:17 | XMS_ITS | Encounter Summary ---
Author Organization [facility] Address [address] [place] [place] [address] Care Team Providers Care Implementation Services Analyst Name Role Phone Elmira Brown DO Unavailable [phone] Elmira Brown DO Primary Care Provider [phone] Kim Santiago LPN Unavailable [phone] Lexy Mei MD Primary Care Provider [phone] Soraida Bethea FORMULA TECHNICIAN Unavailable [phone] Reason for Visit * Reason Comments New Med Request Encounter Details Date Type Department Care Team (Late Contact Info) Description 08/20/2023 Refill [facility] [address] [place] [address] Elmira Brown DO [address] [facility] [address] [place] [address] Social History Tobacco Use Types [...] on filedocumented in this encounter Care Teams Implementation Services Analyst Relationship Specialty Start Date End Date Elmira Brown DO [address] [facility] [address] [place] [address] PCP - [employer] 05/31/21 Elmira Brown DO [address] [facility] [address] [place] [address] PCP - General Family Medicine 04/09/23 01/11/24 Lexy Mei MD [address] [place] [address] PCP - General Family Medicine 01/12/24 Kim Santiago LPN Licensed Practical Nurse Family Medicine 12/24/2312/03 Soraida Bethea NP [address] [facility] [place], [place] [address] Nurse Practitioner Family Medicine 01/12/24 documented as of this encounter
--- OUTSIDE RECORDS SUMMARY | 2025-05-02 09:17 | XMS_ITS | Encounter Summary ---
Author Organization [facility] Address [address] [place] [address] Care Team Providers Care Laser Print Operator Name Role Phone Elmira Brown DO Unavailable [phone] Elmira Brown DO Primary Care Provider [phone] Kim Santiago LPN Unavailable [phone] Lexy Mei MD Primary Care Provider [phone] Soraida Bethea RUNWAY MODEL Unavailable [phone] Encounter Details Date Type Department Care Team (Late st Contact Info) Description 04/22/2023 Abstract [facility] [address] [place] [address] Ewelina Sims MA Social History Tobacco Use Types Packs/Day Years [...] on filedocumented in this encounter Care Teams Laser Print Operator Relationship Specialty Start Date End Date Elmira Brown DO [address] [facility] [address] [place] [address] PCP - [employer] 05/31/21 Elmira Brown DO [address] [address] PCP - General Family Medicine 04/09/23 01/11/24 Lexy Mei MD [address] [facility] [place] [address] PCP - General Family Medicine 01/12/24 Kim Santiago LPN Licensed Practical Nurse Family Medicine 12/24/2312/03 Soraida Bethea NP [address] [facility] [place], [place] [address] Nurse Practitioner Family Medicine 01/12/24 documented as of this encounter
--- OUTSIDE RECORDS SUMMARY | 2025-05-02 09:17 | XMS_ITS | Encounter Summary ---
Author Organization [facility] [employer] Address [id number] [address] [place] [address] Care Team Providers Care Copper Miner Blasting Name Role Phone Zachary Ware DO Primary Care Provider [phone] Reason for Visit * Reason Comments Med Refill Encounter Details Date Type Department Care Team (Late st Contact Info) Description 10/12/2022 Refill [facility] - Family Medicine [address] [place] [address] Zachary Ware DO [address] [facility] [place] [address] Social History Tobacco Use Types Packs/Day Years [...] on filedocumented in this encounter Care Teams Copper Miner Blasting Relationship Specialty Start Date End Date Zachary Ware DO [address] [place] [address] PCP - General Family Medicine 08/17/21 documented as of this encounter
--- NOTE | 2025-05-02 10:00 | CA_ITS ---
Patient Name: MABLE CHAPPELL MR#: [id number] : 1940 Exam Date: 05/02/2025 Ordering Doctor: DHEERAJ WHITEHEAD CNP ECHOCARDIOGRAM REPORT PROCEDURE: CA ECHO DOPPLER COMPLETE INDICATIONS: Aortic valve stenosis COMPARISON: None. DESCRIPTION: COMPLETE ECHOCARDIOGRAM Real-time transthoracic echocardiography with 2D, M-mode, spectral and color flow Doppler performed. QUALITY: Technical quality was good. LEFT VENTRICLE: Normal chamber size. Mild concentric left ventricular hypertrophy. Normal systolic function. LV EF: Calculated left ventricular ejection fraction is 63%. Normal left ventricular ejection fraction, (>55%). DIASTOLIC: Not adequately assessed due to heart rhythm. ATRIAL SEPTUM: Visually appears intact. LEFT ATRIUM: Severe dilatation. RIGHT ATRIUM: Moderate dilatation. RIGHT VENTRICLE: Normal chamber size. Normal right ventricular systolic function. TRICUSPID VALVE: Normal mobility and thickness. No stenosis with mild regurgitation. Doppler studies reveal severely (>60) elevated right sided pressures. RVSP 94 mmHg MITRAL VALVE: Moderately thickened with decreased mobility, suggestive of moderate mitral stenosis. Moderate mitral regurgitation. AORTIC VALVE: Normal trileaflet appearance. Moderately calcified aortic valve. Severely diminished mobility. Doppler velocity suggest severe aortic valve stenosis. DVI 0.24, WISAM 0.6 cm2. Mild aortic regurgitation. AORTIC ROOT: Normal diameter and appearance, measuring 2.9 cm. PULMONIC VALVE: Normal thickness and mobility. No stenosis. No regurgitation. PERICARDIUM: No evidence of pericardial effusion. IVC: IVC is normal in size (2.11 cm), does not collapse. PLEURA: CONCLUSION: 1. Mild concentric left ventricular hypertrophy with normal systolic function. LVEF is estimated at 60 to 65%. 2. Normal right ventricular size and systolic function. 3. Moderate to severe biatrial dilatation. 4. Severe low-flow low gradient aortic valve stenosis with mild regurgitation. 5. Moderate mitral stenosis and moderate regurgitation. 6. Mild tricuspid regurgitation. 7. Severely elevated right-sided pressures. RVSP is 94 mmHg. Adult Echocardiography Procedure Report Left Ventricle LVEDD (3.7 - 5.6 cm): 3.97 cm LVESD (2.2 - 4.0 cm): 2.71 cm LVIVS thickness (0.6 - 1.2 cm): 1.19 cm LVPW thickness (0.5 - 1.0 cm): 1.10 cm LVOT Max Gradient: 1.49 mm[Hg], 1.82 mm[Hg] LVOT Area (cm2): 0.64 m/s Peak Velocity (LVOT): 0.61 m/s, 0.67 m/s Mean Velocity (LVOT): 0.46 m/s LVOT Diameter 1.75 cm Left Atrium LA Volume Index (2D A2C): 57.29 ml/m2 Left Atrium Systolic Dimension: 4.88 cm Mitral Valve Mitral Valve E-Wave Peak Velocity: 1.79 m/s Right Ventricle Aorta AO Root Diam: 2.94 cm Aortic Valve AoV Area (Peak Crescencio): 0.58 cm2, 0.54 cm2, 0.65 cm2 AoV Area (VTI): 0.63 cm2, 0.60 cm2, 0.69 cm2 Peak Velocity(Antegrade Flow): 2.70 m/s, 2.49 m/s, 2.68 m/s, 2.83 m/s Peak Gradient(Antegrade Flow): 29.25 mm[Hg], 24.75 mm[Hg], 28.77 mm[Hg], 31.93 mm[Hg] Mean Velocity(Antegrade Flow): 2.00 m/s, 1.80 m/s, 1.98 m/s, 1.91 m/s Mean Gradient(Antegrade Flow): 17.71 mm[Hg], 14.54 mm[Hg], 17.20 mm[Hg], 16.68 mm[Hg] Velocity Time Integral: 72.78 cm, 67.42 cm, 71.47 cm, 75.53 cm Tricuspid Valve Peak Velocity (Regurgitant Flow): 3.73 m/s, 4.65 m/s Pulmonic Valve Peak Velocity: 1.47 m/s Peak Gradient: 8.63 mm[Hg] Right Atrium Right Atrium Systolic Pressure: 35.78 ml, 35.78 ml Dictated by: Corbin Wright M.D. on 05/02/2025 at 18:04 Approved by: Corbin Wright M.D. on 05/02/2025 at 18:15
== END 2025-05-02 09:13 | disposition home or self-care (01) ==
LOC: CARD 09:13
PROVIDERS: Visit Provider Nurse Practitioner Family
DX: E78.2 Mixed hyperlipidemia (principal); I35.0 Nonrheumatic aortic (valve) stenosis
CPT/HCPCS: 93306

== ENCOUNTER 2025-05-02 09:36 | Outpatient (OUT) | payer MEDICARE, SELFPAY ==
[2025-05-02 10:13] LABS: Hematocrit 41.5 % (36.0-48.0); Hemoglobin 13.8 g/dL (12.0-16.0); Mean Corpuscular HGB Conc 33.3 g/dL (29.9-35.2); Mean Corpuscular Hemoglobin 32.6 pg (26.7-34.0); Mean Corpuscular Volume 98.1 fL (81.0-99.0); Mean Platelet Volume 11.3 fL (9.5-13.5); Platelet Count 241 10^3/uL (150-450); Red Blood Count 4.23 10^6/uL (4.20-5.40); Red Cell Distribution Width 13.2 % (11.0-15.0); White Blood Count 9.4 10^3/uL (4.0-11.0)
[2025-05-02 10:14] LABS: Creatinine Urine Random 55.08 mg/dL (20.00-300.00); Microalbum Creatinine Ratio Ur 54.4 mg/g (0.0-29.9); Protein Creatinine Ratio Urine 0.31
[2025-05-02 10:24] LABS: Albumin Level 4.1 g/dL (3.4-5.0); Anion Gap 14.6; BUN Creatinine Ratio 25.5; Calcium 9.1 mg/dL (8.5-10.1); Carbon Dioxide 29.5 mmol/L (21.0-32.0); Chloride 104 mmol/L (98-107); Estimated GFR (African America 41 (>=60 mL/min/1.73m^2); Estimated GFR (Non-African Ame 34 (>=60 mL/min/1.73m^2); Glucose 223 mg/dL (74-106); Magnesium 2.4 mg/dL (1.8-2.4); Phosphorus 3.5 mg/dL (2.6-4.7); Potassium 4.1 mmol/L (3.5-5.1); Sodium 144 mmol/L (136-145); Uric Acid 7.7 mg/dL (2.6-6.0)
== END 2025-05-02 09:37 | disposition home or self-care (01) ==
LOC: LAB 09:38
PROVIDERS: PCP Nurse Practitioner Family; Visit Provider Internal Medicine Nephrology
DX: E87.5 Hyperkalemia (principal); I50.32 Chronic diastolic (congestive) heart failure; E55.9 Vitamin D deficiency, unspecified; E11.9 Type 2 diabetes mellitus without complications; E79.0 Hyperuricemia without signs of inflammatory arthritis and tophaceous disease; I12.9 Hypertensive chronic kidney disease with stage 1 through stage 4 chronic kidney disease, or unspecified chronic kidney disease
CPT/HCPCS: 36415; 80069; 82043; 82306; 82570; 83735; 84156; 84550; 85027

== ENCOUNTER 2025-05-04 09:26 | Outpatient (OUT) | payer MEDICARE, SELFPAY ==
[2025-05-04 10:33] LABS: Chol HDL Ratio 2.6; Cholesterol 156 mg/dL (<=200); HDL Cholesterol 61 mg/dL (40-60); Triglycerides 92 mg/dL (<=150); VLDL CHOLESTEROL 18.4 mg/dL
== END 2025-05-04 09:27 | disposition home or self-care (01) ==
LOC: LAB 09:26
PROVIDERS: PCP Nurse Practitioner Family; Visit Provider Nurse Practitioner Family
DX: E78.2 Mixed hyperlipidemia (principal)
CPT/HCPCS: 36415; 80061

== ENCOUNTER 2025-07-28 08:55 | Emergency (ER) | payer MEDICARE, SELFPAY ==
[2025-07-28] VITALS (20 sets, daily range): BP systolic 136–156; BP diastolic 61–82; PULSE 56–72; TEMP 36.8; O2SAT 96–100; BMI 24.0
--- NOTE | 2025-07-28 09:01 | ECG_ITS ---
[facility] Test Date: 2025-07-28 Pat Name: MABLE CHAPPELL Department: Room: - Gender: Female Rubber Flap Cutter: : 1940 Requested By: Order Number: [id number] Reading MD: Gregory Noonan Measurements Intervals Taylor Rate: 61 P: -07450 MT: -30369 QRS: -63 QRSD: 86 T: 0 QT: 424 QTc: 426 Interpretive Statements 52102 Atrial fibrillation with aberrant conduction, or ventricular premature complexes 7200 Abnormal left axis deviation 8003 Consistent with pulmonary disease 9150 abnormal ECG Compared to ECG 11/08/2022 14:01:21 Ventricular premature complex(es) now present Aberrant conduction of supraventricular beat(s) now present Left-axis deviation now present Left anterior fascicular block no longer present Electronically Signed On 07-29-2025 13:34:09 EDT by Gregory Noonan
--- NOTE | 2025-07-28 09:01 | XR_ITS ---
[facility] [place] [id number] Patient Name: MABLE CHAPPELL MRN: [id number] date: 1940 Sex: F Assigned Patient Location: ED.MAIN Current Patient Location: ED.MAIN Accession/Order Number: [id number] Exam Date: 07/28/2025 09:30 Report Date: 07/28/2025 10:15 At the request of: LENA NICOLE MD Procedure: XR chest 1V PORTABLE AP ERECT CHEST 0932 hours CLINICAL HISTORY: Chest pain COMPARISON: None The heart is top normal in size. There is no vascular congestion. The lungs, as visualized, are clear. There is no effusion or pneumothorax. There is minor dextroscoliotic curvature and degenerative changes at the shoulders and spine. XR/XR chest 1V IMPRESSION: NO ACUTE FINDINGS Impression dictated by: Dulce Maria Sctot M.D. 07/28/2025 10:15 AM Dictation Location: uTest Electronically authenticated by: [id number] Y Date: 07/28/2025 10:15
--- OUTSIDE RECORDS SUMMARY | 2025-07-28 09:03 | XMS_ITS | CCD ---
Author Organization [facility] Care Team Providers Care Pharmacologist Name Role Phone Zachary Boyle Primary Care Provider ANABEL DUNCAN Referring Unavailable ANABEL DUNCAN Referring Unavailable ZACHARY BOYLE Primary Care Unavailable Albin Bonner Unavailable Zachary Boyle Primary Care Provider Kelvin Maya MD, [place] Primary Care Provider [place], DR ZACHARY Bermudez Primary Care Unavailable FURLONG, DR ZACHARY Bermudez Consulting Unavailable FURLONG, DR ZACHARY Bermudez Attending Unavailable FURLONG, DR ZACHARY Bermudez Admitting Unavailable PAUL SMITHS, DR CHARIS Maya Consulting Unavailable MISC, DR [...] FURLONG, DR ZACHARY Bermudez Primary Care Unavailable VENTURADHEEARJ Admitting Unavailable DHEERAJ WHITEHEAD Consulting Unavailable DHEERAJ [...] Unavailable HAY ., DR JOHANSEN Consulting Unavailable MAYO, RAUL Consulting Unavailable VENTURA, DHEERAJ Admitting Unavailable MISC, DR DENNISON Primary Care Unavailable MISC, DR DENNISON Consulting Unavailable VENTURA, DHEERAJ Attending Unavailable VENTURA, DHEERAJ Consulting Unavailable MOUKARBEL, DR SYKES Consulting Unavailable [...] FURLONG, DR ZACHARY Bermudez Primary Care Unavailable Elmira Daniel DO Unavailable Elmira Daniel DO Primary Care Provider Lexy Mei MD Primary Care Provider Neema PAIZ, Soraida Lopez Unavailable SORAIDA BETHEA Attending Unavailab ROCHELLE Adams Attending Unavailable NEEMA, SORAIDA Lopez Attending Unavailab ROCHELLE Adams Attending Unavailable ROCHELLE ONEIL Referring Unavailable BETHEA, SORAIDA Lopez Attending Unavailab le BETHEA, SORAIDA Lopez Referring Unavailab DIMPLE Long Attending Unavailable BETHEA, SORAIDA Lopez Referring Unavailab le MAMIE GERBER Attending Unavailable BETHEA, SORAIDA Lopez Referring Unavailab le KATHARINA CRAFT Attending Unavailable BETHEA, SORAIDA Lopez Referring Unavailab le BUZZ, MAMIE Attending Unavailable BETHEA, SORAIDA Lopez Referring Unavailab le BUZZ, MAMIE Attending Unavailable BETHEA, SORAIDA Lopez Referring Unavailab ROCHELLE Adams Attending Unavailable Elmira Daniel DO Primary Care Provider [phone] IMAN VALENZUELA Referring Unavailable ELMIRA DANIEL Primary Care Unavailable IMAN VALENZUELA Referring Unavailable ELMIRA DANIEL Primary Care Unavailable ONEL WRIGHT Attending Unavailable DHEERAJ WHITEHEAD Attending Unavailable ONEL WRIGHT Attending Unavailable Elmira Daniel DO Unavailable Medications Current Medications Medication Drug Class(es) Dates Sig (Normalized) Sig (Original) amLODIPine 5 mg oral tablet (20 sources) Dihydropyridine Calcium Channel Aleksandra Start: 12-03-2023 End: 10-01-2024 amLODIPine (Norvasc) 5 MG tablet Indications: Primary hypertension TAKE 1 TABLET EVERY DAY 90 tablet 3 10/01/2024 Active apixaban 2.5 mg oral tablet (20 sources) Factor Xa Inhibitor Start: 02-03-2024 End: 01-04-2025 take 1 tablet by mouth twice daily Apixaban 2.5 mg tablet Active 2.5 MG PO Twice daily January 04, 2025 1:00am Start: 01-17-2022 take 1 tablet by mouth once EL IQUIS 2.5 MG TABS tablet TAKE ONE TABLET BY MOUTH EVERY TWELVE HOURS 01/17/2022 Active atorvastatin 10 mg oral tablet (20 sources) HMG-CoA Reductase Inhibitor Start: 06-01-2025 atorvastatin (Lipito r) 10 MG tablet Indications: Mixed hyperlipidemia TAKE 1 TABLET EVERY DAY 90 tablet 3 06/01/2025 Active Start: 2021 End: 06-01-2025 atorvastatin (Lipitor) 10 MG tablet Indications: Mixed hyperlipidemia TAKE 1 TABLET EVERY DAY 90 tablet 3 08/11/2024 06/01/2025 Discontinued benazepril hydrochloride 10 mg oral tablet (20 sources) Angiotensin Converting Enzyme Inhibitor Start: 07-12-2021 End: 10-15-2024 benazepril (Lotensin) 10 MG tablet Indications: Primary hypertension TAKE 1 TABLET EVERY DAY 90 tablet 3 10/15/2024 Active Blood Glucose Monitoring Suppl (True Metrix Meter) w/Device kit (19 sources) Start: 08-20-2022 Blood Glucose Monitoring Suppl (True Metrix Meter) w/Device kit 08/20/2022 Active Start: 08-20-2022 Blood Glucose Monitoring Suppl (True Metrix Meter) w/Device kit Calcium Carb-Cholecalciferol (CALCIUM CREAMIES) 600-10 MG-MCG CHEW (1 source) Start: 09-17-2024 take 2 tablets by mouth once daily at breakfast Calcium Carb-Cholecalciferol (CALCIUM CREAMIES) 600-10 MG-MCG CHEW Indications: At risk for bone density loss , alf (current) use of aromatase inhibitors Take 2 tablets by mouth daily (with breakfast) 360 tablet 09/17/2024 Active diazePAM 5 mg oral tablet (2 sources) Benzodiazepine Start: 04-29-2023 diazePAM (Valium) 5 MG tablet Indications: Situational anxiety Take 1 tablet (5 mg) by mouth 2 (two) times a day as needed for anxiety (take 1 dose prior to MRI, take 2nd tablet 20 minutes later if still anxious) for up to 2 doses. 2 tablet 0 04/29/2023 Active diphenhydrAMINE / Zinc acetate (1 source) Histamine-1 Receptor Antagonist diphenhydrAMINE-Zinc Acetate (BENADRYL ITCH RELIEF EX) Apply 1 application topically as needed (itching rash to L upper arm) Active docusate sodium 100 mg oral capsule (20 sources) Start: 02-03-2024 End: 08-31-2024 take 1 capsule by mouth once daily as needed Docusate Sodium 100 mg capsule Active 100 MG PO Daily as needed August 31, 2024 2:49pm empagliflozin 10 mg oral tablet (19 sources) Sodium-Glucose Cotransporter 2 Inhibitor Start: 01-06-2024 End: 01-05-2025 take 10 mg by mouth in the morning empagliflozin (Jardiance) 10 MG Take 10 mg by mouth in the morning. 01/06/2024 Active furosemide 40 mg oral tablet (20 sources) Loop Diuretic Start: 05-10-2025 Furosemide 40 mg tablet Active 20 MG PO Twice daily May 10, 2025 11:36am Start: 05-09-2025 End: 05-10-2025 Furosemide 40 mg tablet Disc ontinued 0 .ROUTE .COMPLEX 180 May 09, 2025 9:44am May 10, 2025 11:37am TAKE 1 TABLET TWICE DAILY Start: 01-04-2025 End: 05-09-2025 Furosemide 40 mg tablet Disc ontinued 60 MG PO Daily January 04, 2025 12:37pm May 09, 2025 9:44am Start: 12-13-2024 End: 01-04-2025 Furosemide 40 mg tablet Disc ontinued 0 .ROUTE .COMPLEX 180 December 13, 2024 7:41pm January 04, 2025 12:38pm TAKE 1 TABLET TWICE DAILY Start: 07-22-2024 End: 12-13-2024 Furosemide 40 mg tablet Disc ontinued 0 PO Twice daily August 31, 2024 2:49pm December 13, 2024 11:13am 40 mg in am, 20 mg in pm orally twice daily; Start: 05-28-2024 End: 07-22-2024 take 1 tablet by mouth twice daily Furosemide 40 mg tablet Discontinued 0 .ROUTE .COMPLEX 180 May 28, 2024 10:53am July 22, 2024 5:14pm TAKE 1 TABLET BY MOUTH TWICE A DAY FOR 90 DAYS Start: 02-03-2024 End: 05-28-2024 take 1 tablet by mouth twice daily Furosemide 40 mg tablet Discontinued 40 MG PO Twice daily 60 February 03, 2024 12:34pm May 28, 2024 10:53am FreeTextSi tablet Orally twice a day; Note: Source Status: Refill; Refills: 1; Qty: 180 Tablet; Provider: Kailey Talamantes Start: 10-16-2021 take 2 tablets by mo ut twice daily furosemide (LASIX) 20 MG tablet Take 2 tablets by mouth 2 times daily 10/16/2021 Active Start: 10-16-2021 take 1 tablet by sparkle th once daily furosemide (LASIX) 20 MG tablet TAKE 1 TABLET BY MOUTH EVERY DAY FOR 5 DAYS 0 10/16/2021 Active take 1 tablet by sparkle th every twenty-four hours Furosemide 40 MG 1 tablet Orally Once a day Active isopropyl alcohol 0.7 ml/ml medicated pad (19 sources) Start: 04-08-2023 Alcohol Swabs (DropSafe Alcohol Prep) 70 % pads 04/08/2023 Active latanoprost 0.05 mg/ml ophthalmic solution (20 sources) Prostaglandin Analog Start: 02-03-2024 take 1 drop(s) into the eye(s) once daily in the evening Latanoprost 0.005 % drops Active 1 DROPS OPHTHALMIC Daily February 03, 2024 1:00am FreeTextSi drop into affected eye in the evening Ophthalmic Once a day; Note: Source Status: Taking; Provider: Kailey Talamantes ( ) Start: 12-17-2021 take 1 drop(s) into the eye(s) once daily latanoprost (XALATAN) 0.005 % ophthalmic solution INSTILL 1 DROP INTO EYES EVERY NIGHT 12/17/2021 Active Start: 09-21-2021 latanoprost (X alatan) 0.005 % ophthalmic solution latanoprost 0.005 % eye drops 09/21/2021 Active take 1 drop(s) into the eye(s) once daily in the evening Latanoprost 0.005 % 1 drop into affected eye in the evening Ophthalmic Once a day Active 24 hr metFORMIN hydrochloride 500 mg extended release oral tablet (5 sources) Biguanide Start: 06-19-2021 metFORMIN (GLUCOPHAGE-XR) 500 MG extended release tablet Take 1 tablet in the morning and 1/2 tablet in the evening 06/19/2021 Active 24 hr metoprolol succinate 200 mg extended release oral tablet (20 sources) beta-Adrenergic Aleksandra Start: 05-23-2025 metoprolol succinate XL (Toprol-XL) 200 MG 24 hr tablet Indications: Primary hypertension TAKE 1 TABLET EVERY DAY 90 tablet 3 05/23/2025 Active Start: 05-01-2021 End: 08-03-2024 take 1 tablet by mouth once daily Metoprolol Succinate 200 mg tablet extended release 24 hr Active 1 TAB PO Daily February 03, 2024 1:00am FreeTextSi tablet Orally Once a day; Note: Source Status: Taking; Provider: Kailey Talamantes pioglitazone 30 mg oral tablet (15 sources) Peroxisome Proliferator Receptor alpha Agonist, Peroxisome Proliferator Receptor gamma Agonist, Thiazolidinedione Start: 07-06-2021 End: 01-03-2025 pioglitazone (ACTOS) 30 MG tablet daily 07/06/2021 Active SITagliptin 50 mg oral tablet (20 sources) Dipeptidyl Peptidase 4 Inhibitor Start: 01-31-2025 take 1 tablet by mouth once daily SITagliptin (Januvia) 50 MG tablet Indications: Type 2 diabetes mellitus with chronic kidney disease, without long-term current use of insulin, unspecified CKD stage (HCC) Take 1 tablet (50 mg) by mouth Daily 90 tablet 3 01/31/2025 Active Start: 01-31-2025 take 1 tablet by sparkle th once daily SITagliptin (Januvia) 50 MG tablet Indications: Type 2 diabetes mellitus with chronic kidney disease, without long-term current use of insulin, unspecified CKD stage (CMS/HCC) Take 1 tablet (50 mg) by mouth Daily 90 tablet 3 01/31/2025 Active Start: 11-06-2023 End: 01-31-2025 take 1 tablet by mouth once daily Sitagliptin Phosphate 50 mg tablet Discontinued 50 MG PO Daily February 03, 2024 1:00am August 31, 2024 2:50pm FreeTextSi tablet Orally Once a day; Note: Source Status: Taking; Provider: Kailey Talamantes ( ) Start: 07-07-2021 take 0.5 tablet by out once daily JANUVIA 100 MG tablet Take 0.5 tablets by mouth daily 07/07/2021 Active Start: 07-07-2021 JANUVIA 100 MG tablet daily 0 07/07/2021 Active sodium zirconium cyclosilicate 34397 mg powder for oral suspension (5 sources) Start: 01-21-2023 take 1 dose by mouth once daily Lokelma 10 GM 1 packet dissolved in water Orally Once a day for 3 days Jan, Active take 1 dose by mouth once daily Lokelma 10 GM 1 packet dissolved in water Orally Once a day for 4 days Active spironolactone 25 mg oral tablet (16 sources) Aldosterone Antagonist Start: 11-09-2021 End: 01-03-2025 take 1 tablet by mouth once daily spironolactone (ALDACTONE) 25 MG tablet spironolactone 25 mg tablet Take 1 tablet every day by oral route for 90 days. 11/09/2021 Active Vitamin D 25 MCG (1000 UT) (6 sources) take 1 tablet by mouth once daily Vitamin D 25 MCG (1000 UT) 1 tablet Orally Once a day Active VITAMIN D, CHOLECALCIFEROL, PO (5 sources) take 1000 [IU] by mouth once daily VITAMIN D, CHOLECALCIFEROL, PO Take 1,000 Units by mouth daily Active VITAMIN D, SONIA CALCIFEROL, PO Take by mouth daily 0 Active Completed/Discontinued Medications Medication Drug Class(es) Dates Sig (Normalized) Sig (Original) anastrozole 1 mg oral tablet (20 sources) Aromatase Inhibitor Start: 07-10-2021 End: 08-31-2024 take 1 tablet by mouth once daily Anastrozole 1 mg tablet Discontinued 1 TAB PO Daily February 03, 2024 1:00am August 31, 2024 2:52pm FreeTextSi tablet Orally Once a day; Note: Source Status: Taking; Provider: Kailey Talamantes ( ) cholecalciferol 0.01 mg oral capsule (20 sources) Vitamin D Start: 08-31-2024 End: 08-31-2024 take 1 capsule by mouth once daily Cholecalciferol (Vitamin D3) 10 mcg (400 unit) capsule Discontinued 10 MCG PO Daily August 31, 2024 12:00am August 31, 2024 2:52pm Start: 02-03-2024 End: 08-31-2024 take 1 capsule by mouth once daily Cholecalciferol (Vitamin D3) 25 mcg (1,000 unit) capsule Active 25 MCG PO Daily August 31, 2024 12:00am take 1 tablet by sparkle th in the morning cholecalciferol (Vitamin D3) 25 MCG (1000 UT) tablet Take 25 mcg by mouth in the morning. Active take 1 tablet by sparkle th every twenty-four hours Vitamin D 25 MCG (1000 UT) 1 tablet Orally Once a day Active diphenhydrAMINE hydrochloride 0.02 mg/mg topical gel (1 source) Histamine-1 Receptor Antagonist Start: 02-03-2024 End: 08-31-2024 Diphenhydramine Hcl (Benadryl) 2 % gel Discontinued 1 APPLIC TOPICAL Twice daily February 03, 2024 1:00am August 31, 2024 2:52pm 1 ml methylPREDNISolone acetate 40 mg/ml injection (4 sources) Corticosteroid Start: 01-17-2025 End: 01-17-2025 methylPREDNISolone acetate (DEPO-Medrol) injection 40 mg Start: 01-17-2025 End: 01-17-2025 40 mg, Intra-articular, Once PRN Procedure, Starting on Fri01/17/25 at 2009, For 1 dose Problems Active Problems Problem Classification Problem Date Documented Date Episodic/Chronic Cancer of ovary (20 sources) Malignant tumor of ovary; Translations: [Malignant neoplasm of unspecified ovary] Onset: 2 Resolved: 4 04-09-2023 Chronic Cancer of ovary (1 source) History of malignant neoplasm of ovary; Translations: [Personal history of malignant neoplasm of ovary] Episodic Cardiac dysrhythmias (20 sources) Permanent atrial fibrillation; Translations: [Permanent atrial fibrillation] Onset: 2 04-09-2023 Chronic Chronic kidney disease (20 sources) Chronic kidney disease stage 4; Translations: [Chronic kidney disease, stage 4 (severe)] Onset: 2 Resolved: 4 Chronic Chronic kidney disease (2 sources) Chronic kidney disease; Translations: [Chronic kidney disease, stage 3 unspecified] Onset: 2 Chronic obstructive pulmonary disease and bronchiectasis (20 sources) Chronic obstructive lung disease; Translations: [Chronic obstructive pulmonary disease, unspecified] Onset: 1 01-12-2024 Chronic Congestive heart failure; nonhypertensive (20 sources) Heart failure; Translations: [Heart failure, unspecified] Onset: 1 Resolved: 4 10-16-2021 Chronic Coronary atherosclerosis and other heart disease (2 sources) Atherosclerotic heart disease of [place] coronary artery without angina pectoris; Translations: [Atherosclerotic heart disease of [place] coronary artery without angina pectoris] Onset: 4 Chronic Diabetes mellitus with complications (20 sources) Type 2 diabetes mellitus with diabetic chronic kidney disease; Translations: [Type 2 diabetes mellitus with peripheral angiopathy] Onset: 0 01-12-2024 Chronic Diabetes mellitus without complication (20 sources) Type 2 diabetes mellitus; Translations: [Type 2 diabetes mellitus without complications] Onset: 2 Resolved: 2 Chronic Disorders of lipid metabolism (20 sources) Mixed hyperlipidemia; Translations: [Mixed hyperlipidemia] Onset: 2 Resolved: 4 04-09-2023 Chronic E Codes: Fall (1 source) Fall on same level from slipping, tripping and stumbling with subsequent striking against unspecified object, initial encounter; Translations: [FALL SAME LVL SLIP STRK UNS OBJ INT] Onset: 3 Episodic Essential hypertension (20 sources) Essential hypertension; Translations: [Essential (primary) hypertension] Onset: 2 Resolved: 4 Chronic Fluid and electrolyte disorders (5 sources) Hyperkalemia; Translations: [Hyperkalemia] Episodic Heart valve disorders (20 sources) Nonrheumatic aortic (valve) stenosis; Translations: [Combined rheumatic disorders of mitral, aortic and tricuspid valves] Onset: 1 Chronic Hypertension with complications and secondary hypertension (10 sources) Hypertensive heart disease with heart failure; Translations: [Hypertensive heart and chronic kidney disease with heart failure and stage 1 through stage 4 chronic kidney disease, or unspecified chronic kidney disease] Onset: 3 Chronic Immunizations and screening for infectious disease (1 source) Encounter for immunization; Translations: [ENCOUNTER FOR IMMUNIZATION] Onset: 3 Episodic Nonspecific chest pain (1 source) Chest pain, unspecified; Translations: [CHEST PAIN UNSPECIFIED] Onset: 3 Episodic Nutritional deficiencies (12 sources) Vitamin D deficiency; Translations: [Vitamin D deficiency, unspecified] Onset: 3 Chronic Osteoarthritis (2 sources) Arthritis of left acromioclavicular joint; Translations: [Primary osteoarthritis, left shoulder] 01-17-2025 Chronic Osteoporosis (1 source) Age-related osteoporosis without current pathological fracture; Translations: [Age-related osteoporosis without current pathological fracture] Onset: 4 Chronic Other aftercare (1 source) 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 (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; Translations: [OTH HALF-WAY CURRENT DRUG THERAPY] Onset: 3 Episodic Other aftercare (1 source) alf (current) use of anticoagulants; Translations: [HALF-WAY CURRNT USE ANTICOAGULANTS] Onset: 3 Episodic Other connective tissue disease (1 source) Pain in right leg; Translations: [PAIN IN RIGHT LEG] Onset: 3 Episodic Other connective tissue disease (1 source) Pain in left leg; Translations: [PAIN IN LEFT LEG] Onset: 3 Episodic Other connective tissue disease (4 sources) Impingement syndrome of left shoulder region; Translations: [Impingement syndrome of left shoulder] 01-17-2025 Episodic Other ear and sense organ disorders (20 sources) Bilateral hearing loss; Translations: [Unspecified hearing loss, bilateral] Onset: 3 04-09-2023 Chronic Other ear and sense organ disorders (20 sources) Mixed conductive AND sensorineural hearing loss; Translations: [Mixed conductive and sensorineural hearing loss, unilateral, right ear with restricted hearing on the contralateral side] Onset: 3 04-09-2023 Chronic Other ear and sense organ disorders (2 sources) Excessive cerumen in ear canal ; Translations: [Impacted cerumen, bilateral] 01-03-2025 Episodic Other injuries and conditions due to external causes (1 source) Other specified injuries of head, initial encounter; Translations: [OTH SPEC INJURIES HEAD INITIAL ENC] Onset: 3 Episodic Other non-traumatic joint disorders (2 sources) Chronic pain of left upper limb; Translations: [Pain in left shoulder] 01-17-2025 Episodic Other nutritional; endocrine; and metabolic disorders (4 sources) Hyperuricemia without signs of inflammatory arthritis and tophaceous disease; Translations: [Other abnormal blood chemistry] Episodic Other nutritional; endocrine; and metabolic disorders (1 source) Hyperuricemia; Translations: [Hyperuricemia without signs of inflammatory arthritis and tophaceous disease] 01-30-2024 Episodic Peripheral and visceral atherosclerosis (20 sources) Atherosclerosis of aorta; Translations: [Atherosclerosis of aorta] Onset: 0 01-12-2024 Chronic Pulmonary heart disease (20 sources) Pulmonary hypertension; Translations: [Pulmonary hypertension, unspecified] Onset: 3 04-09-2023 Chronic Superficial injury; contusion (1 source) Abrasion of scalp, initial encounter; Translations: [ABRASION OF SCALP INITIAL ENCOUNTER] Onset: 3 Episodic Unclassified (1 source) Other persistent atrial fibrillation; Translations: [OTHR PERSISTENT ATRIAL FIBRILLATION] Onset: 2 Unclassified (2 sources) Longstanding persistent atrial fibrillation; Translations: [Longstanding persistent atrial fibrillation] Onset: 2 Past or Other Problems Problem Classification Problem Date Documented Date Episodic/Chronic Allergic reactions (19 sources) Atopic dermatitis; Translations: [Intrinsic (allergic) eczema] Onset: 04-09-2023 Resolved: 01-17-2024 04-09-2023 Chronic Genitourinary symptoms and ill-defined conditions (20 sources) Randall hematuria; Translations: [Gross hematuria] Onset: 09-26-2021 Resolved: 01-17-2024 Episodic Menopausal disorders (20 sources) Postmenopausal bleeding; Translations: [Postmenopausal bleeding] Onset: 09-26-2021 Resolved: 01-17-2024 09-26-2021 Chronic Neoplasms of unspecified nature or uncertain behavior (20 sources) Borderline epithelial tumor of ovary; Translations: [Neoplasm of uncertain behavior of unspecified ovary] Onset: 07-18-2021 Episodic Other acquired deformities (18 sources) Lumbar spondylolisthesis; Translations: [Spondylolisthesis, lumbar region] Onset: 04-20-2015 01-12-2024 Episodic Other and unspecified benign neoplasm (20 sources) Serous cystadenoma of left ovary; Translations: [Benign neoplasm of left ovary] Onset: 11-21-2020 01-12-2024 Episodic Other connective tissue disease (19 sources) Tear of left rotator cuff; Translations: [Unspecified rotator cuff tear or rupture of left shoulder, not specified as traumatic] Onset: 04-09-2023 Resolved: 01-17-2024 04-09-2023 Episodic Other connective tissue disease (19 sources) Supraspinatus tear; Translations: [Unspecified rotator cuff tear or rupture of left shoulder, not specified as traumatic] Onset: 04-09-2023 Resolved: 01-17-2024 04-09-2023 Episodic Other connective tissue disease (18 sources) Pain in upper limb; Translations: [Pain in right arm] Onset: 02-22-2016 Resolved: 01-17-2024 01-12-2024 Episodic Other connective tissue disease (18 sources) Tendonitis of left shoulder; Translations: [Other enthesopathies, not elsewhere classified] Onset: 02-22-2016 Resolved: 01-17-2024 01-12-2024 Episodic Other ear and sense organ disorders (19 sources) Bilateral tinnitus; Translations: [Tinnitus, bilateral] Onset: 04-09-2023 Resolved: 01-17-2024 04-09-2023 Episodic Other female genital disorders (19 sources) Vulval and/or perineal noninflammatory disorders; Translations: [Noninflammatory disorder of vulva and perineum, unspecified] Onset: 03-12-2023 Resolved: 01-17-2024 05-11-2023 Episodic Other female genital disorders (18 sources) Dystrophy of vulva; 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] Onset: 01-12-2024 Resolved: 01-17-2024 01-12-2024 Episodic Other screening for suspected conditions (not mental disorders or infectious disease) (7 sources) Encounter for screening mammogram for malignant neoplasm of breast; Translations: [Patient encounter status] Onset: 05-29-2022 Episodic Residual codes; unclassified (4 sources) Flushing; Translations: [FLUSHING] Onset: 11-08-2022 Episodic Residual codes; unclassified (1 source) Family history of malignant neoplasm of ovary; Translations: [FAM HX MALIGNANT NEOPLASM OVARY] Onset: 06-12-2022 Episodic Residual codes; unclassified (20 sources) Acquired absence of cervix and uterus; Translations: [Acquired absence of both cervix and uterus] Onset: 04-09-2023 04-09-2023 Episodic Residual codes; unclassified (20 sources) Bilateral acquired absence of ovary; Translations: [Acquired absence of ovaries, bilateral] Onset: 04-09-2023 04-09-2023 Episodic Residual codes; unclassified (20 sources) Memory impairment; Translations: [Other amnesia] Onset: 04-09-2023 04-09-2023 Episodic Spondylosis; intervertebral disc disorders; other back problems (18 sources) Narrowing of intervertebral disc space; Translations: [Other intervertebral disc degeneration, lumbar region] Onset: 04-20-2015 Resolved: 01-17-2024 01-12-2024 Chronic Spondylosis; intervertebral disc disorders; other back problems (20 sources) Low back pain; Translations: [Low back pain] Onset: 04-20-2015 Resolved: 01-17-2024 01-12-2024 Episodic Unclassified (1 source) Onset: 02-28-2023 02-28-2023 Varicose veins of lower extremity (20 sources) Varicose veins of right lower limb; Translations: [Asymptomatic varicose veins of right lower extremity] Onset: 09-11-2017 01-12-2024 Episodic Results Test Name Value Interpretation Reference Range Facility 36on 05-17-2025 36 Patient niece would like you to stop Yesy's driving due to her possible passing out and her test coming back worse. Niece would like here re-evaluated in August. Please advise. MD Mandi Anderson MA Caller: Unspecified (Yesterday, 9:20 AM) 05/17/2025 - Patient Call: You and Onel Wright MD (Newest Message First) View All Conversations on this Encounter Onel Wright MD to Me (Selected Message) 05/17/25 9:48 PM Sure, no driving for her until I see her next. Advised niece Lizabeth chamberlain. [facility] Telephoneon 05-17-2025 Telephone [phone] Garcia 1940 F Date Provider Department Center 05/17/2025 [id number] LARA [facility]ARD [facility] Family History Problem Relation Age of Onset Heart attack Mother Heart attack Brother Family Status - Relation Status Age at Mother Father Brother [facility] Office Visiton 05-16-2025 Follow-up visit [id number] Mary Rodriguez 1940 F Date Provider Department [place] 05/16/2025 [facility]-ONEL WRIGHT BH CARD [facility] Family History Problem Relation Age of Onset Heart attack Mother Heart attack Brother Family Status - Relation Status Age at Mother Father Brother Level of Service:21040 [place] OFFICE/OUTPATIENT ESTABLISHED MOD MDM 30 MIN [facility] Orders Onlyon 05-13-2025 Orders Only [id number] Mary Rodriguez 1940 F Date Provider Department Center 05/13/2025 [id number], HISTORICAL BH CARD [facility] Family History Problem Relation Age of Onset Heart attack Mother Heart attack Brother Family Status - Relation Status Age at Mother Brother Normal [facility] Orders Onlyon 05-04-2025 Orders Only [id number] Mary Rodriguez 1940 F Date Provider Department Center 05/04/2025 [id number], HISTORICAL BH CARD [facility] Family History Problem Relation Age of Onset Heart attack Mother Heart attack Brother Family Status - Relation Status Age at Mother Brother Normal [facility] Orders Onlyon 05-03-2025 Orders Only [id number] Mary Rodriguez 1940 F Date Provider Department Center 05/03/2025 [id number], HISTORICAL BH CARD [facility] Family History Problem Relation Age of Onset Heart attack Mother Heart attack Brother Family Status - Relation Status Age at Mother Brother Normal [facility] Erythrocyte distribution wid th Auto (RBC) [Ratio]on 05-02-2025 Erythrocyte distribution width (RBC) [Ratio] Erythrocyte distribution width [Ratio] by Automated count 11.0-15.0 [facility] Estimated glomerular filtrat ion rate (GFR) non- Americanon 05-02-2025 GFR/1.73 sq M.predicted among non-blacks MDRD (S/P/Bld) [Vol rate/Area] Estimated glomerular filtration rate (GFR) non- Low >=60 mL/min/1.73m 2 [facility] Hematocrit Auto (Bld) [Volum e fraction]on 05-02-2025 Hematocrit (Bld) [Volume fraction] Hematocrit [Volume Fraction] of Blood by Automated count 36.0-48.0 [facility] Hemoglobin [Mass/volume] in Bloodon 05-02-2025 Hemoglobin (Bld) [Mass/Vol] Hemoglobin [Mass/volume] in Blood 12.0-16.0 [facility] Laboratory - Chemistry and C hemistry - challengeon 05-02-2025 Albumin [Mass/Vol] 4.1 g/dL 3.4-5.0 [facility] Calcium [Mass/Vol] 9.1 mg/dL 8.5-10.1 [facility] Chloride [Moles/Vol] 104 mmol/L 98-107 [facility] CO2 [Moles/Vol] 29.5 mmol/L 21.0-32.[address] [facility] Creatinine [Mass/Vol] 1.45 mg/dL High 0.55-1.02 [facility] GFR/1.73 sq M.predicted MDRD (S/P/Bld) [Vol rate/Area] 41 mL/min/{1.73_m2} Low >=60 mL/min/1.73m 2 [facility] Glucose [Mass/Vol] 223 mg/dL High 74-106 [facility] Magnesium [Mass/Vol] 2.4 mg/dL 1.8-2.4 [facility] Potassium [Moles/Vol] 4.1 mmol/L 3.5-5.1 [facility] Sodium [Moles/Vol] 144 mmol/L 136-145 [facility] Urate [Mass/Vol] 7.7 mg/dL High 2.6-6.[address] [facility] Urea nitrogen [Mass/Vol] 37.0 mg/dL High 7.0-18.0 [facility] Urea nitrogen/Creatinine [Mass ratio] 25.5 mg/mg [facility] Laboratory - Urinalysison Protein (U) [Mass/Vol] 17.0 mg/dL High <=11.9 [facility] Leukocytes [#/volume] correc luis for nucleated erythrocytes in Blood by Automated counon 05-02-2025 WBC corrected for nucl RBC Auto (Bld) [#/Vol] Leukocytes [#/volume] corrected for nucleated erythrocytes in Blood by Automated coun 4.0-11.0 [facility] MCH Auto (RBC) [Entitic mass ]on 05-02-2025 MCH (RBC) [Entitic mass] MCH [Entitic mass] by Automated count 26.7-34.0 [facility] MCHC Auto (RBC) [Mass/Vol]on 05-02-2025 MCHC (RBC) [Mass/Vol] MCHC [Mass/volume] by Automated count 29.9-35.2 [facility] MCV Auto (RBC) [Entitic vol] on 05-02-2025 MCV (RBC) [Entitic vol] MCV [Entitic volume] by Automated count 81.0-99.0 [facility] Microalbumin [Mass/volume] i n Urineon 05-02-2025 Albumin DL <= 20 mg/L (U) [Mass/Vol] Microalbumin [Mass/volume] in Urine <=30.0 [facility] No Panel Informationon 05-02 25-Hydroxy Vitamin D Total 50.9 ng/mL [facility] Comment on above: <20 ng/mL Vit D defi cient20-<30 ng/mL Vit D [id number] ng/mL Vit D sufficient>100 ng/mL Potential Toxicity Phosphorus Level 3.5 mg/dL 2.6-4.[address] [facility] Urine Random Creatinine 55.08 mg/dL 20.00-300.00 [facility] Platelet mean volume Auto (B ld) [Entitic vol]on 05-02-2025 Platelet mean volume (Bld) [Entitic vol] Platelet mean volume [Entitic volume] in Blood by Automated count 9.5-13.5 [facility] Platelets Auto (Bld) [#/Vol] on 05-02-2025 Platelets (Bld) [#/Vol] Platelets [#/volume] in Blood by Automated count 150-450 [facility] RBC Auto (Bld) [#/Vol]on RBC (Bld) [#/Vol] Erythrocytes [#/volume] in Blood by Automated count 4.20-5.40 [facility] Serum or plasma anion gap de terminationon 05-02-2025 Anion gap [Moles/Vol] Serum or plasma an ion gap determination [facility] Urine microalbumin/creatinin e mass ratioon 05-02-2025 Albumin/Creatinine DL <= 20 mg/L (U) [Mass ratio] Urine microalbumin/creatinin e mass ratio High 0.0-29.9 [facility] Comment on above: NO MICROALBUMINURIA 0-29 MG/GCLINICAL MICROALBUMINURIA 30-300 MG/GMACROALBUMINURIA >300 MG/G Urine protein/creatinine rat ioon 05-02-2025 Protein/Creatinine (U) [Ratio] Urine protein/creatinine ratio [facility] [place] 125on 03-09-2025 Cancer Ag 125 Qn 8 [arb'U]/mL 0 - 38 U/mL [facility] Comment on above: The Jorje ECLIA as say is used. Results obtained with different assay methods cannot be used interchangeably. [facility] CA 125 8 U/mL Normal 0-38 [facility] Comment on above: Result Comment: The Jorje ECLIA assay is used. Results obtained with different assay methods cannot be used interchangeably. Performed By: #### C A125 #### [employer] [address] [place] [address] Field Tech: Andrew Blakely MD No Panel Informationon 01-17 Rochelle Oneil NP 01/17/2025 8:11 PM L Inj/Asp: L subacromial bursa on 01/17/2025 8:10 PM Indications: pain Details: 20 G needle, posterior approach Medications: 40 mg methylPREDNISolone acetate 40 MG/ML Outcome: tolerated well, no immediate complications Site cleaned with isopropyl alcohol Procedure, treatment alternatives, risks and benefits explained, specific risks discussed. Consent was given by the patient. [facility] Office Visiton 11-10-2024 Follow-up visit [id number] Mary Rodriguez 1940 Date Provider Department Center 11/10/2024 DHEERAJ CARNEY [facility] Patrice [facility] Family History Problem Relation Age of Onset Heart attack Mother Heart attack Brother Family Status - Relation Status Age at Mother Brother Level of Service:78936 [place] OFFICE/OUTPATIENT ESTABLISHED LOW MDM 20 MIN Reason for Visit and Comments: Valve Disorder [3372] Coronary Artery Disease [187] Atrial Fibrillation [80] Normal [facility] CA 125on 09-08-2024 CA 125 8 U/mL Normal 0-38 [facility] Comment on above: Result Comment: The Jorje ECLIA assay is used. Results obtained with different assay methods cannot be used interchangeably. Performed By: #### C A125 #### [facility] [address] [id number] Field Tech: Andrew Blakely MD Office Visiton 05-27-2024 Follow-up visit [id number] Mary Rodriguez 1940 [facility] Provider Department Center 05/27/2024 ONEL JONES [facility] Patrice [facility] Family History Problem Relation Age of Onset Heart attack Mother Heart attack Brother Family Status - Relation Status Age at Mother Brother Level of Service:91439 [place] OFFICE/OUTPATIENT ESTABLISHED LOW MDM 20 MIN Normal [facility] XR CERVICAL SPINE AP/LAT/FLE X/EXTon 05-26-2024 XR [...] BY: Skyler Yanez MD Normal Not Available PROF CHEM 8 (BAS METB)on Anion gap [Moles/Vol] 13.7 mmol/L Normal [facility] Comment on above: Performed By: #### C MP, URIC #### [facility] [address] [address] [address] Hussein Camacho Calcium [Mass/Vol] 9.7 mg/dL Normal 8.5-10.1 [facility] Comment on above: Performed By: #### C MP, URIC #### [facility] [address] [place] [address] Dr. Hussein Camacho Chloride [Moles/Vol] 100 mmol/L Normal 98-107 [facility] Comment on above: Performed By: #### C MP, URIC #### [facility] [address] [place] [address] Dr. Hussein Camacho CO2 [Moles/Vol] 29.9 mmol/L Normal 21.0-32.0 [facility] Comment on above: Performed By: #### C MP, URIC #### [facility] [address] [place] [address] Dr. Hussein Camacho Creatinine [Mass/Vol] 1.87 mg/dL Critically high 0.55-1.02 [facility] Comment on above: Performed By: #### C MP, URIC #### [facility] [address] [place] [address] Dr. Hussein Camacho EGFR-AF NAURUAN 31 mL/min/1.73m2 Critically low >=60 [facility] Comment on above: Performed By: #### C MP, URIC #### [facility] [address] [place] [address] Dr. Hussein Camacho EGFR-NON AF NAURUAN 26 mL/min/1.73m2 Critically low >=60 [facility] Comment on above: Performed By: #### C MP, URIC #### [facility] [address] [address] [address] Hussein Camacho Glucose [Mass/Vol] 146 mg/dL Critically high 74-106 T [facility] Comment on above: Performed By: #### C MP, URIC #### [facility] [address] [address] [address] Hussein Camacho Potassium [Moles/Vol] 4.6 mmol/L Normal 3.5-5.1 [facility] Comment on above: Performed By: #### C MP, URIC #### [facility] [address] [address] [address] Hussein Camacho Sodium [Moles/Vol] 139 mmol/L Normal 136-145 [facility] Comment on above: Performed By: #### C MP, URIC #### [facility] [address] [address] [address] Hussein Camacho Urea nitrogen [Mass/Vol] 67.0 mg/dL Critically high 7.0-18.0 [facility] Comment on above: Performed By: #### C MP, URIC #### [facility] [address] [address] [address] Hussein Camacho Urea nitrogen/Creatinine [Mass ratio] 35.8 mg/mg Normal [facility] Comment on above: Performed By: #### C MP, URIC #### [facility] [address] [address] [address] Hussein Camacho US TRANG DOP LEG [...] ELA GASPAR Date: 2023-03-17 17:00 Normal [facility] BNPon 03-12-2023 Natriuretic peptide B (Bld) [Mass/Vol] 3283.0 pg/mL Critically high <=1,800.0 [facility] Comment on above: Performed By: #### C MP, URIC #### [facility] [address] [place] [address] Dr. Hussein Camacho D-DIMERon 03-12-2023 D-DIMER 1.34 mg/L FEU Critically high <=0.59 [facility] Comment on above: Performed By: #### C MP, URIC #### [facility] [address] [place] [address] Dr. Hussein Camacho D-DIMER COMMENTS SEE BELOW Normal [facility] Comment on above: Result Comment: Incr eases [...] Performed By: #### C MP, URIC #### [facility] [address] [place] [address] Dr. Hussein Camacho PROF CHEM 8 (BAS METB)on Anion gap [Moles/Vol] 12.4 mmol/L Normal [facility] Comment on above: Performed By: #### C MP, URIC #### [facility] [address] [place] [address] Dr. Hussein Camacho Calcium [Mass/Vol] 9.6 mg/dL Normal 8.5-10.1 [facility] Comment on above: Performed By: #### C MP, URIC #### [facility] [address] [place] [address] Dr. Hussein Camacho Chloride [Moles/Vol] 104 mmol/L Normal 98-107 [facility] Comment on above: Performed By: #### C MP, URIC #### [facility] [address] [place] [address] Dr. Hussein Camacho CO2 [Moles/Vol] 29.6 mmol/L Normal 21.0-32.0 [facility] Comment on above: Performed By: #### C MP, URIC #### [facility] [address] [address] [address] Hussein Camacho Creatinine [Mass/Vol] 1.55 mg/dL Critically high 0.55-1.02 [facility] Comment on above: Performed By: #### C MP, URIC #### [facility] [address] [address] [address] Hussein Camacho EGFR-AF NAURUAN 39 mL/min/1.73m2 Critically low >=60 [facility] Comment on above: Performed By: #### C MP, URIC #### [facility] [address] [address] [address] Hussein Camacho EGFR-NON AF NAURUAN 32 mL/min/1.73m2 Critically low >=60 [facility] Comment on above: Performed By: #### C MP, URIC #### [facility] [address] [address] [address] Hussein Camacho Glucose [Mass/Vol] 128 mg/dL Critically high 74-106 [facility] Comment on above: Performed By: #### C MP, URIC #### [facility] [address] [address] [address] Hussein Camacho Potassium [Moles/Vol] 3.9 mmol/L Normal 3.5-5.1 [facility] Comment on above: Performed By: #### C MP, URIC #### [facility] [address] [address] [address] Hussein Camacho Sodium [Moles/Vol] 142 mmol/L Normal 136-145 [facility] Comment on above: Performed By: #### C MP, URIC #### [facility] [address] [address] [address] Hussein Camacho Urea nitrogen [Mass/Vol] 49.0 mg/dL Critically high 7.0-18.0 [facility] Comment on above: Performed By: #### C MP, URIC #### [facility] [address] [address] [address] Hussein Camacho Urea nitrogen/Creatinine [Mass ratio] 31.6 mg/mg Normal [facility] Comment on above: Performed By: #### C MP, URIC #### [facility] [address] [address] [address] Hussein Camacho ECHOCARDIO M/2D COMPLETEon 0 03-10-2023 ECHOCARDIO M/2D COMPLETE Patient Name Site Name YESY RODRIGUEZ [facility] Account No Medical Record Number Age Sex Date Time [id number] F 03/10/2023 14:44 At the Request Of ONEL WRIGHT ECHOCARDIOGRAM REPORT PROCEDURE: CARDIO PULMONARY ECHOCARDIO M/2D [...] Area (VTI): 0.61 cm2, 0.62 cm2 Deceleration Mccracken: 1.84 m/s2 Pressure Half-Time: 571.86 ms Peak [...] Onel Wright M.D. on 03/10/2023 at 17:00 Normal [facility] GLYCOHEMOGLOBIN A1Con 2022 ADA RECOMMENDATION SEE BELOW Normal [facility] Comment on above: Result Comment: ADA RECOMMENDED LIMIT 4.0 - 6.0 ADA THERAPEUTIC TARGET < 7.0 ACTION SUGGESTED > 7.0 Performed By: #### A 1C #### [facility] [address] [address] [address] Hussein Camacho Glucose [Mass/Vol] 154 mg/dL Normal [facility] Comment on above: Performed By: #### A 1C #### [facility] [address] [place] [address] Dr. Hussein Camacho HbA1c (Bld) [Mass fraction] 7.0 % Critically high 4.5-6.2 [facility] Comment on above: Performed By: #### A 1C #### [facility] [address] [address] [address] Hussein Camacho PROF CHEM 8 (BAS METB)on Anion gap [Moles/Vol] 8.3 mmol/L Normal [facility] Comment on above: Performed By: #### C MP, URIC #### [facility] [address] [place] [address] Dr. Hussein Camacho Calcium [Mass/Vol] 9.1 mg/dL Normal 8.5-10.1 [facility] Comment on above: Performed By: #### C MP, URIC #### [facility] [address] [address] [address] Hussein Camacho Chloride [Moles/Vol] 106 mmol/L Normal 98-107 [facility] Comment on above: Performed By: #### C MP, URIC #### [facility] [address] [address] [address] Hussein Camacho CO2 [Moles/Vol] 28.2 mmol/L Normal 21.0-32.0 [facility] Comment on above: Performed By: #### C MP, URIC #### [facility] [address] [address] [address] Hussein Camacho Creatinine [Mass/Vol] 1.04 mg/dL Critically high 0.55-1.02 [facility] Comment on above: Performed By: #### C MP, URIC #### [facility] [address] [address] [address] Hussein Camacho EGFR-AF NAURUAN >60 Normal >=60 [facility] Comment on above: Performed By: #### C MP, URIC #### [facility] [address] [address] [address] Hussein Camacho EGFR-NON AF NAURUAN 50 mL/min/1.73m2 Critically low >=60 [facility] Comment on above: Performed By: #### C MP, URIC #### [facility] [address] [address] [address] Hussein Camacho Glucose [Mass/Vol] 122 mg/dL Critically high 74-106 [facility] Comment on above: Performed By: #### C MP, URIC #### [facility] [address] [address] [address] Hussein Camacho Potassium [Moles/Vol] 4.5 mmol/L Normal 3.5-5.1 [facility] Comment on above: Performed By: #### C MP, URIC #### [facility] [address] [address] [address] Hussein Camacho Sodium [Moles/Vol] 138 mmol/L Normal 136-145 [facility] Comment on above: Performed By: #### C MP, URIC #### [facility] [address] [address] [address] Hussein Camacho Urea nitrogen [Mass/Vol] 33.0 mg/dL Critically high 7.0-18.0 [facility] Comment on above: Performed By: #### C MP, URIC #### [facility] [address] [address] [address] Hussein Camacho Urea nitrogen/Creatinine [Mass ratio] 31.7 mg/mg Normal [facility] Comment on above: Performed By: #### C MP, URIC #### [facility] [address] [place], [place] [address] Dr. Hussein Camacho [place] 125on 01-24-2023 Cancer Ag 125 Qn 9 [arb'U]/mL NINF - 38 U/mL [facility] Comment on above: The Jorje ECLIA as say is used. Results obtained with different assay methods cannot be used interchangeable. [facility] CT HEAD WO CONon 01-13-2023 CT HEAD [...] SKYLER MEYER Date: 2023-01-13 13:33 Normal [facility] PROF 14(COMP METB)on 023 Albumin [Mass/Vol] 4.3 g/dL Normal 3.4-5.0 [facility] Comment on above: Performed By: #### C MP #### [facility] [address] [place], [place] [address] Dr. Hussein Camacho Albumin/Globulin [Mass ratio] 1.2 {ratio} Normal [facility] Comment on above: Performed By: #### C MP #### [facility] [address] [place], [place] [address] Dr. Hussein Camacho ALP [Catalytic activity/Vol] 96 U/L Normal 46-116 [facility] Comment on above: Performed By: #### C MP #### [facility] [address] [address] [address] Hussein Camacho ALT [Catalytic activity/Vol] 43 U/L Normal 14-59 [facility] Comment on above: Performed By: #### C MP #### [facility] [address] [address] [address] Hussein Camacho Anion gap [Moles/Vol] 13.2 mmol/L Normal [facility] Comment on above: Performed By: #### C MP #### [facility] [address] [address] [address] Hussein Camacho AST [Catalytic activity/Vol] 30 U/L Normal 15-37 [facility] Comment on above: Performed By: #### C MP #### [facility] [address] [address] [address] Hussein Camacho Bilirubin [Mass/Vol] 0.7 mg/dL Normal 0.2-1.0 [facility] Comment on above: Performed By: #### C MP #### [facility] [address] [address] [address] Hussein Camacho Calcium [Mass/Vol] 9.7 mg/dL Normal 8.5-10.1 [facility] Comment on above: Performed By: #### C MP #### [facility] [address] [address] [address] Hussein Camacho Chloride [Moles/Vol] 105 mmol/L Normal 98-107 [facility] Comment on above: Performed By: #### C MP #### [facility] [address] [address] [address] Hussein Camacho CO2 [Moles/Vol] 28.5 mmol/L Normal 21.0-32.0 [facility] Comment on above: Performed By: #### C MP #### [facility] [address] [address] [address] Hussein Camacho Creatinine [Mass/Vol] 1.48 mg/dL Critically high 0.55-1.02 [facility] Comment on above: Performed By: #### C MP #### [facility] [address] [address] [address] Hussein Camacho EGFR-AF NAURUAN 41 mL/min/1.73m2 Critically low >=60 [facility] Comment on above: Performed By: #### C MP #### [facility] [address] [address] [address] Hussein Camacho EGFR-NON AF NAURUAN 34 mL/min/1.73m2 Critically low >=60 [facility] Comment on above: Performed By: #### C MP #### [facility] [address] [address] [address] Hussein Camacho Globulin (S) [Mass/Vol] 3.6 g/dL Normal [facility] Comment on above: Performed By: #### C MP #### [facility] [address] [address] [address] Hussein Camacho Glucose [Mass/Vol] 140 mg/dL Critically high 74-106 [facility] Comment on above: Performed By: #### C MP #### [facility] [address] [address] [address] Hussein Camacho Potassium [Moles/Vol] 5.7 mmol/L Critically high 3.5-5.1 [facility] Comment on above: Performed By: #### C MP #### [facility] [address] [address] [address] Hussein Camacho Protein [Mass/Vol] 7.9 g/dL Normal 6.4-8.2 [facility] Comment on above: Performed By: #### C MP #### [facility] [address] [address] [address] Hussein Camacho Sodium [Moles/Vol] 141 mmol/L Normal 136-145 [facility] Comment on above: Performed By: #### C MP #### [facility] [address] [address] [address] Hussein Camacho Urea nitrogen [Mass/Vol] 42.0 mg/dL Critically high 7.0-18.0 [facility] [facility] Comment on above: Performed By: #### C MP #### [facility] [address] [address] [address] Hussein Camacho Urea nitrogen/Creatinine [Mass ratio] 28.4 mg/mg Normal [facility] Comment on above: Performed By: #### C MP #### [facility] [id number] Hussein Camacho MRI Shoulder w/o Lefton [...] by Boaz Weeks on 10/14/2022 1541 Normal [facility] Specialist PTH INTACTon 09-12-2022 PTH, Intact 46 pg/mL Normal 15-65 [facility] Comment on above: Performed By: #### P THINT #### [facility] [address] [address] [address] Hussein Camacho CBC AUTO DIFFon 09-10-2022 BASO # 0.1 103/ul Normal 0.0-0.1 [facility] Comment on above: Performed By: #### C BC #### [facility] [address] [address] [address] Hussein Camacho Basophils/100 WBC (Bld) 0.8 % Normal 0.2-2.0 [facility] Comment on above: Performed By: #### C BC #### [facility] [address] [place] [address] Dr. Hussein Camacho EO # 0.3 103/ul Normal 0.0-0.7 [facility] Comment on above: Performed By: #### C BC #### [facility] [address] [place] [address] Dr. Hussein Camacho Eosinophils/100 WBC (Bld) 3.3 % Normal 0.9-7.0 [facility] Comment on above: Performed By: #### C BC #### [facility] [address] [place] [address] Dr. Hussein Camacho Erythrocyte distribution width (RBC) [Ratio] 13.6 % Normal 11.0-15.0 [facility] Comment on above: Performed By: #### C BC #### [facility] [address] [place] [address] Dr. Hussein Camacho Hematocrit (Bld) [Volume fraction] 41.5 % Normal 36.0-48.0 [facility] Comment on above: Performed By: #### C BC #### [facility] [address] [place] [address] Dr. Hussein Camacho Hemoglobin (Bld) [Mass/Vol] 13.5 g/dL Normal 12.0-16.0 [facility] Comment on above: Performed By: #### C BC #### [facility] [address] [place] [address] Dr. Hussein Camacho IG # 0.03 10e3/ul Normal 0.00-0.03 [facility] Comment on above: Performed By: #### C BC #### [facility] [address] [place] [address] Dr. Hussein Camacho IG % 0.3 % Normal 0.0-0.5 [facility] Comment on above: Performed By: #### C BC #### [facility] [address] [place] [address] Dr. Hussein Camacho LYMPH # 1.3 103/ul Normal 1.2-3.8 [facility] Comment on above: Performed By: #### C BC #### [facility] [address] [place] [address] Dr. Hussein Camacho Lymphocytes/100 WBC (Bld) 12.7 % Critically low 20.5-60.0 [facility] Comment on above: Performed By: #### C BC #### [facility] [address] [place] [address] Dr. Hussein Camacho MANUAL DIFF REQ NO Normal [facility] Comment on above: Performed By: #### C BC #### [facility] [address] [place] [address] Dr. Hussein Camacho MCH (RBC) [Entitic mass] 31.4 pg Normal 26.7-34.0 [facility] Comment on above: Performed By: #### C BC #### [facility] [address] [place] [address] Dr. Hussein Camacho MCHC (RBC) [Mass/Vol] 32.5 g/dL Normal 29.9-35.2 [facility] Comment on above: Performed By: #### C BC #### [facility] [address] [place] [address] Dr. Hussein Camacho MCV (RBC) [Entitic vol] 96.5 fL Normal 81.0-99.0 [facility] Comment on above: Performed By: #### C BC #### [facility] [address] [place] [address] Dr. Hussein Camacho MONO # 0.9 103/ul Critically high 0.3-0.8 [facility] Comment on above: Performed By: #### C BC #### [facility] [address] [place] [address] Dr. Hussein Camacho Monocytes/100 WBC (Bld) 9.0 % Normal 1.7-12.0 [facility] Comment on above: Performed By: #### C BC #### [facility] [address] [place] [address] Dr. Hussein Camacho NEUT # 7.5 103/ul Critically high 1.4-6.5 [facility] Comment on above: Performed By: #### C BC #### [facility] [address] [address] [address] Hussein Camacho Neutrophils/100 WBC (Bld) 73.9 % Normal 43.0-75.0 [facility] Comment on above: Performed By: #### C BC #### [facility] [address] [address] [address] Hussein Caamcho Platelet mean volume (Bld) [Entitic vol] 10.6 fL Normal 9.5-13.5 [facility] Comment on above: Performed By: #### C BC #### [facility] [address] [place] [address] Dr. Hussein Camacho PLT 287 103/ul Normal 150-450 [facility] Comment on above: Performed By: #### C BC #### [facility] [address] [place] [address] Dr. Hussein Camacho RBC 4.30 106/ul Normal 4.20-5.40 [facility] Comment on above: Performed By: #### C BC #### [facility] [address] [place] [address] Dr. Hussein Camacho WBC 10.2 103/ul Normal 4.0-11.0 [facility] Comment on above: Performed By: #### C BC #### [facility] [address] [place] [address] Dr. Hussein Camacho PROF 14(COMP METB)on 022 Albumin [Mass/Vol] 4.3 g/dL Normal 3.4-5.0 [facility] Comment on above: Performed By: #### C MP, URIC #### [facility] [address] [place] [address] Dr. Hussein Camacho Albumin/Globulin [Mass ratio] 1.1 {ratio} Normal [facility] Comment on above: Performed By: #### C MP, URIC #### [facility] [address] [place] [address] Dr. Hussein Camacho ALP [Catalytic activity/Vol] 102 U/L Normal 46-116 [facility] Comment on above: Performed By: #### C MP, URIC #### [facility] [address] [address] [address] Hussein Camacho ALT [Catalytic activity/Vol] 47 U/L Normal 14-59 [facility] Comment on above: Performed By: #### C MP, URIC #### [facility] [address] [address] [address] Hussein Camacho Anion gap [Moles/Vol] 12.4 mmol/L Normal [facility] Comment on above: Performed By: #### C MP, URIC #### [facility] [address] [address] [address] Hussein Camacho AST [Catalytic activity/Vol] 23 U/L Normal 15-37 [facility] Comment on above: Performed By: #### C MP, URIC #### [facility] [address] [address] [address] Hussein Camacho Bilirubin [Mass/Vol] 0.4 mg/dL Normal 0.2-1.0 [facility] Comment on above: Performed By: #### C MP, URIC #### [facility] [address] [address] [address] Hussein Camacho Calcium [Mass/Vol] 9.2 mg/dL Normal 8.5-10.1 [facility] Comment on above: Performed By: #### C MP, URIC #### [facility] [address] [address] [address] Hussein Camacho Chloride [Moles/Vol] 102 mmol/L Normal 98-107 [facility] Comment on above: Performed By: #### C MP, URIC #### [facility] [address] [address] [address] Hussein Camacho CO2 [Moles/Vol] 28.5 mmol/L Normal 21.0-32.0 [facility] Comment on above: Performed By: #### C MP, URIC #### [facility] [address] [address] [address] Hussein Camacho Creatinine [Mass/Vol] 1.55 mg/dL Critically high 0.55-1.02 [facility] Comment on above: Performed By: #### C MP, URIC #### [facility] [address] [address] [address] Hussein Camacho EGFR-AF NAURUAN 39 mL/min/1.73m2 Critically low >=60 [facility] Comment on above: Performed By: #### C MP, URIC #### [facility] [address] [address] [address] Hussein Camacho EGFR-NON AF NAURUAN 32 mL/min/1.73m2 Critically low >=60 [facility] Comment on above: Performed By: #### C MP, URIC #### [facility] [address] [address] [address] Hussein Camacho Globulin (S) [Mass/Vol] 3.9 g/dL Normal [facility] Comment on above: Performed By: #### C MP, URIC #### [facility] [address] [address] [address] Hussein Camacho Glucose [Mass/Vol] 160 mg/dL Critically high 74-106 [facility] Comment on above: Performed By: #### C MP, URIC #### [facility] [address] [address] [address] Hussein Camacho Potassium [Moles/Vol] 3.9 mmol/L Normal 3.5-5.1 [facility] Comment on above: Performed By: #### C MP, URIC #### [facility] [address] [address] [address] Hussein Camacho Protein [Mass/Vol] 8.2 g/dL Normal 6.4-8.2 [facility] Comment on above: Performed By: #### C MP, URIC #### [facility] [address] [address] [address] Hussein Camacho Sodium [Moles/Vol] 139 mmol/L Normal 136-145 [facility] Comment on above: Performed By: #### C MP, URIC #### [facility] [address] [address] [address] Hussein Camacho Urea nitrogen [Mass/Vol] 42.0 mg/dL Critically high 7.0-18.0 [facility] Comment on above: Performed By: #### C MP, URIC #### [facility] [address] [place] [address] Dr. Hussein Camacho Urea nitrogen/Creatinine [Mass ratio] 27.1 mg/mg Normal [facility] Comment on above: Performed By: #### C MP, URIC #### [facility] [address] [place] [address] Dr. Hussein Camacho UA RANDOMon 09-10-2022 Bilirubin Ql (U) Negative Normal NEGATIVE [facility] Comment on above: Performed By: #### U A #### [facility] [address] [place] [address] Dr. Hussein Camacho Clarity (U) CLEAR Normal CLEAR [facility] Comment on above: Performed By: #### U A #### [facility] [address] [place] [address] Dr. Hussein Camacho Color (U) LT. YELLOW Normal YELLOW [facility] Comment on above: Performed By: #### U A #### [facility] [address] [place] [address] Dr. Hussein Camacho Glucose Ql (U) Negative Normal NEGATIVE [facility] Comment on above: Performed By: #### U A #### [facility] [address] [place] [address] Dr. Hussein Camacho Hemoglobin Ql (U) TRACE-INTACT Abnormal NEGATIVE [facility] Comment on above: Performed By: #### U A #### [facility] [address] [place] [address] Dr. Hussein Camacho Ketones Ql (U) Negative Normal NEGATIVE [facility] Comment on above: Performed By: #### U A #### [facility] [address] [place] [address] Dr. Hussein Camacho LEUKOCYTES SMALL Abnormal NEGATIVE [facility] Comment on above: Performed By: #### U A #### [facility] [address] [place] [address] Dr. Hussein Camacho Nitrite Ql (U) Negative Normal NEGATIVE [facility] Comment on above: Performed By: #### U A #### [facility] [address] [place] [address] Dr. Hussein Camacho pH (U) 6.0 [pH] Normal 5-9 [facility] Comment on above: Performed By: #### U A #### [facility] [address] [place] [address] Dr. Hussein Camacho SPEC GRAVITY 1.020 Normal 1.005-<=1.02 5 [facility] Comment on above: Performed By: #### U A #### [facility] [address] [place] [address] Dr. Hussein Camacho UA PROTEIN Negative Normal NEGATIVE/ TRACE [facility] Comment on above: Performed By: #### U A #### [facility] [address] [place] [address] Dr. Hussein Camacho Urobilinogen Qn (U) 0.2 {Naina'U}/dL Normal 0.2 - 1. 0 [facility] Comment on above: Performed By: #### U A #### [facility] [address] [place] [address] Dr. Hussein Camacho URIC ACID SERUMon 09-10-2022 Urate [Mass/Vol] 7.5 mg/dL Critically high 2.6-6.0 [facility] Comment on above: Performed By: #### C MP, URIC #### [facility] [address] [place] [address] Dr. Hussein Camacho URINE T PROTEIN CREAT RATIOo n 09-10-2022 Protein (U) [Mass/Vol] 7.3 mg/dL Normal <=12.0 [facility] Comment on above: Performed By: #### U RTPCR #### [facility] [address] [place] [address] Dr. Hussein Camacho UR PROT CREAT RAT 0.13 Normal [facility] Comment on above: Performed By: #### U RTPCR #### [facility] [address] [place] [address] Dr. Hussein Camacho URINE CREAT 56.41 mg/dL Normal 20.00-300.00 [facility] Comment on above: Performed By: #### U RTPCR #### [facility] [address] [address] [address] Hussein Camacho VITAMIN D 25 OHon 09-10-2022 VIT D 25-OH 50.6 ng/mL Normal [facility] Comment on above: Performed By: #### V ITAD #### [facility] [id number] Hussein Camacho VIT D RANGES SEE BELOW Normal [facility] Comment on above: Result Comment: <20 ng/mL Vit D deficient 20 - <30 ng/mL Vit D insufficient 30 - 100 ng/mL Vit D sufficient >100 ng/mL Potential Toxicity Performed By: #### V ITAD #### [facility] [address] [address] [address] Hussein Camacho ECHOCARDIO M/2D COMPLETEon 0 08-21-2022 ECHOCARDIO M/2D COMPLETE Patient: YESY RODRIGUEZ Exam Date: 08/21/2022 : 1940 Gender:F Ordering : KATHARINA JOVEL Admission #: [id number] Family : DR ZACHARY BOYLE Order #: [id number] CLICK HERE TO VIEW EXAM ECHOCARDIOGRAM REPORT [...] Wright M.D. on 08/23/2022 at 17:05 Normal [facility] CA 125on 07-10-2022 CA 125 8 U/mL NINF - 38 U/mL [facility] Comment on above: The Jorje ECLIA as say is used. Results obtained with different assay methods cannot be used interchangeable. [facility] ALBUMIN, RANDOM URINE W/CREA TININEon 06-11-2022 ALBUMIN, URINE 2.5 mg/dL Normal See Note: [facility] Comment on above: Order Comment: FASTI NG:YESFASTING: YES Result Comment: Cipriano nogueramayra Range: Reference Range Not established Performed By: #### 1 0162, 867 #### [facility] [address], [address] [place], [place] [id number] Hospital Cna: Matt Beasley MD ALBUMIN/CREATININE RATIO, RANDOM URINE 39 mcg/mg creat High <30 [facility] Comment on above: Order Comment: FASTI [...] a diagnostic category. Performed By: #### 1 0168, 867 #### [facility] [address], [address] [place], [place] [id number] Hospital Cna: Matt Beasley MD Creatinine (U) [Mass/Vol] 64 mg/dL Normal 20-275 [facility] Comment on above: Order Comment: TANO NG:YESFASTING: YES Performed By: #### 1 016, 867 #### [facility] [address] [address] Hospital Cna: Matt Beasley MD BASIC METABOLIC PANELon 05-31 Calcium [Mass/Vol] 10.0 mg/dL Normal 8.6-10.4 [facility] Comment on above: Performed By: #### 1 Eugenie, 867 #### [facility] [address] [address] Hospital Cna: Matt Beasley MD Chloride [Moles/Vol] 103 mmol/L Normal 98-110 [facility] Comment on above: Performed By: #### 1 Eugenie, 867 #### [facility] [address] [place] [address] Hospital Cna: Matt Beasley MD CO2 [Moles/Vol] 25 mmol/L Normal 20-32 [facility] Comment on above: Performed By: #### 1 0165, 867 #### [facility] [address] [place] [address] Hospital Cna: Matt Beasley MD Creatinine [Mass/Vol] 1.43 mg/dL High 0.60-0.[address] [facility] Comment on above: Performed By: #### 1 016, 867 #### [facility] [address] [place] [address] Hospital Cna: Matt Beasley MD GFR/1.73 sq M.predicted among non-blacks MDRD (S/P/Bld) [Vol rate/Area] 36 mL/min/{1.73_m2} Low > OR = 60 [facility] Comment on above: Result Comment: The eGFR is based on the CKD-EPI 2020 equation. To calculate the new eGFR from a previous Creatinine or Cystatin C result, go to https://www.kidney.org/professionals/ kdoqi/gfr%5Fcalculator Performed By: #### 1 0165, 867 #### [facility] [address] [place] [address] Hospital Cna: Matt Beasley MD Glucose [Mass/Vol] 124 mg/dL High 65-99 [facility] Comment on above: Result Comment: Fasting reference interval For someone without known diabetes, a glucose value between 100 and 125 mg/dL is consistent with prediabetes and should be confirmed with a follow-up test. Performed By: #### 1 0165, 867 #### [facility] [address] [place] [address] Hospital Cna: Matt Beasley MD Potassium [Moles/Vol] 5.5 mmol/L High 3.5-5.[address] [facility] Comment on above: Performed By: #### 1 164, 867 #### [facility] [address] [place] [address] Hospital Cna: Matt Beasley MD Sodium [Moles/Vol] 138 mmol/L Normal 135-146 [facility] Comment on above: Performed By: #### 1 016, 867 #### [facility] [address] [place] [address] Hospital Cna: Matt Beasley MD Urea nitrogen [Mass/Vol] 43 mg/dL High 7-25 [facility] Comment on above: Performed By: #### 1 0165, 867 #### [facility] [address] [place] [address] Hospital Cna: Matt Beasley MD Urea nitrogen/Creatinine [Mass ratio] 30 mg/mg High 6-22 [facility] Comment on above: Performed By: #### 1 016, 867 #### [facility] [address] [place] [address] Hospital Cna: Matt Beasley MD HEMOGLOBIN A1con 06-11-2022 HEMOGLOBIN [...] #### 1 0165, 867 #### [facility] [address], [address] [place] [address] Hospital Cna: Matt Beasley MD ECHOCARDIO M/2D COMPLETEon 0 06-05-2022 ECHOCARDIO M/2D COMPLETE Patient: YESY RODRIGUEZ Exam Date: 06/05/2022 : 1940 Gender:F Ordering : DHEERAJ WHITEHEAD Admission #: [id number] Family : DR ZACHARY BOYLE Order #: [id number] CLICK HERE TO VIEW EXAM ECHOCARDIOGRAM REPORT [...] Wright M.D. on 06/05/2022 at 13:14 Normal [facility] MAMM SCREEN 3D GIRMA CADon 05-29-2022 MG MAMM SCREEN 3D GIRMA CAD Patient: YESY RODRIGUEZ Exam Date: 05/29/2022 : 1940 Gender:F Ordering : DR ZACHARY BOYLE Admission #: [id number] Family : Order #: [id number] CLICK HERE TO VIEW EXAM RADIOLOGY REPORT PROCEDURE: MAMMOGRAM SCREENING 3D BILATERAL CAD COMPARISON: MAMM SCREEN 3D GIRMA CAD, 07/05/2020. MG MAMM DX 3D LT CAD, 03/07/2021. INDICATIONS: Screening for malignant neoplasm of breast Calculator Name NCI Breast Cancer Risk Assessment Tool 5 Year Breast Cancer Risk 1.10% Lifetime Breast Cancer Risk 1.40% Personal Breast Cancer No Personal Ovarian Cancer Yes, 80 Treatments None Family Cancers Sister with ovarian cancer at age 35; Sister with ovarian cancer at age 38. LOCATION: [facility] BREAST COMPOSITION: Heterogeneously dense,which may obscure small [...] Schreiber MD on 06/11/2022 at 14:06 Normal [facility] PROF CHEM 8 (BAS METB)on Anion gap [Moles/Vol] 15.1 mmol/L Normal [facility] Comment on above: Performed By: #### B MP #### [facility] [address] [place] [address] Dr. Hussein Camacho Calcium [Mass/Vol] 9.6 mg/dL Normal 8.5-10.1 [facility] Comment on above: Performed By: #### B MP #### [facility] [address] [place] [address] Dr. Hussein Camacho Chloride [Moles/Vol] 103 mmol/L Normal 98-107 [facility] Comment on above: Performed By: #### B MP #### [facility] [address] [place] [address] Dr. Hussein Camacho CO2 [Moles/Vol] 26.0 mmol/L Normal 21.0-32.0 [facility] Comment on above: Performed By: #### B MP #### [facility] [address] [place] [address] Dr. Hussein Camacho Creatinine [Mass/Vol] 1.51 mg/dL Critically high 0.55-1.02 [facility] Comment on above: Performed By: #### B MP #### [facility] [address] [address] [address] Hussein Camacho EGFR-AF NAURUAN 40 mL/min/1.73m2 Critically low >=60 [facility] Comment on above: Performed By: #### B MP #### [facility] [address] [address] [address] Hussein Camacho EGFR-NON AF NAURUAN 33 mL/min/1.73m2 Critically low >=60 [facility] Comment on above: Performed By: #### B MP #### [facility] [address] [address] [address] Hussein Camacho Glucose [Mass/Vol] 120 mg/dL Critically high 74-106 [facility] Comment on above: Performed By: #### B MP #### [facility] [address] [address] [address] Hussein Camacho Potassium [Moles/Vol] 5.1 mmol/L Normal 3.5-5.1 [facility] Comment on above: Performed By: #### B MP #### [facility] [address] [address] [address] Hussein Camacho Sodium [Moles/Vol] 139 mmol/L Normal 136-145 [facility] Comment on above: Performed By: #### B MP #### [facility] [address] [address] [address] Hussein Camacho Urea nitrogen [Mass/Vol] 40.0 mg/dL Critically high 7.0-18.0 [facility] Comment on above: Performed By: #### B MP #### [facility] [address] [address] [address] Hussein Camacho Urea nitrogen/Creatinine [Mass ratio] 26.5 mg/mg Normal [facility] Comment on above: Performed By: #### B MP #### [facility] [address] [address] [address] Hussein Camacho Basic Metabolic Panelon 04-2 Anion gap [Moles/Vol] 10 mmol/L 9 - 17 mmol/L [facility] Calcium [Mass/Vol] 9.8 mg/dL 8.6 - 10. 4 mg/dL [facility] Chloride [Moles/Vol] 104 mmol/L 98 - 10 7 mmol/L [facility] CO2 [Moles/Vol] 25 mmol/L 20 - 31 mmol/L [facility] Creatinine [Mass/Vol] 1.23 mg/dL High 0.50 - 0.90 mg/dL [facility] GFR 51 mL/min Low >60 [facility] GFR Non- 42 mL/min Low >[address] [facility] Glucose [Mass/Vol] 133 mg/dL High 70 - 99 mg/dL [facility] Interpretation and review of laboratory results Abnormal [facility] Potassium [Moles/Vol] 4.2 mmol/L 3.7 - 5.3 mmol/L [facility] Sodium [Moles/Vol] 139 mmol/L 135 - 144 mmol/L [facility] Urea nitrogen (BldV) [Mass/Vol] 32 mg/dL High 8 - 23 mg/dL [facility] Urea nitrogen/Creatinine (Bld) [Mass ratio] 26 High [facility] - Chemistry and C hemistry - challengeon 03-27-2022 GFR/1.73 sq M.predicted MDRD (S/P/Bld) [Vol rate/Area] [facility] Comment on above: Average GFR for 70 o r more years old: 75 mL/min/1.73sq m Chronic Kidney Disease: <60 mL/min/1.73sq m Kidney failure: <15 mL/min/1.73sq m eGFR calculated using average adult body mass. Additional eGFR calculator available at: http://www.Apps Genius.Touchbase/multiple_crcl_2011.htm Stage 1: Some kidney damage normal GFR Stage 2: Mild kidney damage GFR 60-89 Stage 3: Moderate kidney damage GFR 30-59 Stage 4: Severe kidney damage GFR 15-29 Stage 5: Severe kidney damage GFR <15 ESRD - chronic treatment by dialysis or transplant BASIC METABOLIC PANELon 0 Calcium [Mass/Vol] 10.1 mg/dL Normal 8.6-10.4 [facility] Comment on above: Performed By: #### 1 4243, 078, 27396, 718, 29120, 622, 52559, 496 #### [facility] [place] [address] Hospital Cna: Matt Beasley MD Chloride [Moles/Vol] 100 mmol/L Normal 98-110 [facility] Comment on above: Performed By: #### 1 7306, 905, 63187, 718, 07518, 622, 20897, 496 #### [facility] [place] [address] Hospital Cna: Matt Beasley MD CO2 [Moles/Vol] 28 mmol/L Normal 20-32 [facility] Comment on above: Performed By: #### 1 7306, 905, 58938, 718, 15937, 622, 73470, 496 #### [facility] [place] [address] Hospital Cna: Matt Beasley MD Creatinine [Mass/Vol] 1.89 mg/dL High 0.60-0.[address] [facility] Comment on above: Result Comment: For patients >49 years of age, the reference limit for Creatinine is approximately 13% higher for people identified as -Haitian. Performed By: #### 1 7306, 905, 41630, 718, 60456, 622, 32032, 496 #### [facility] [place] [address] Hospital Cna: Matt Beasley MD eGFR NON-AFR. NAURUAN 24 mL/min/1.73m2 Low > OR = 60 [facility] Comment on above: Performed By: #### 1 7306, 905, 59998, 718, 96955, 622, 62089, 496 #### [facility] [place] [address] Hospital Cna: Matt Beasley MD GFR/1.73 sq M.predicted among blacks MDRD (S/P/Bld) [Vol rate/Area] 28 mL/min/{1.73_m2} Low > OR = 60 [facility] Comment on above: Performed By: #### 1 7306, 905, 69586, 718, 71126, 622, 64167, 496 #### [facility] [place] [address] Hospital Cna: Matt Beasley MD Glucose [Mass/Vol] 123 mg/dL High 65-99 [facility] Comment on above: Result Comment: Fasting reference interval For someone without known diabetes, a glucose value between 100 and 125 mg/dL is consistent with prediabetes and should be confirmed with a follow-up test. Performed By: #### 1 7306, 905, 97853, 718, 26289, 622, 80174, 496 #### [facility] [place] [address] Hospital Cna: Matt Beasley MD Potassium [Moles/Vol] 4.7 mmol/L Normal 3.5-5.[address] [facility] Comment on above: Performed By: #### 1 7306, 905, 23159, 718, 94771, 622, 30723, 496 #### [facility] [place] [address] Hospital Cna: Matt Beasley MD Sodium [Moles/Vol] 136 mmol/L Normal 135-146 [facility] Comment on above: Performed By: #### 1 7306, 905, 13876, 718, 55559, 622, 15271, 496 #### [facility] [place] [address] Hospital Cna: Matt Beasley MD Urea nitrogen [Mass/Vol] 64 mg/dL High 7-25 [facility] Comment on above: Performed By: #### 1 7306, 905, 08247, 718, 14493, 622, 23485, 496 #### [facility] [place] [address] Hospital Cna: Matt Beasley MD Urea nitrogen/Creatinine [Mass ratio] 34 mg/mg High 6-22 [facility] Comment on above: Performed By: #### 1 7306, 905, 18171, 718, 63265, 622, 16138, 496 #### [facility] [address], [address] [place] [address] Hospital Cna: Matt Beasley MD HEMOGLOBIN A1con 03-05-2022 HEMOGLOBIN [...] #### 1 0165, 867 #### [facility] [address], [address] [place] [address] Hospital Cna: Matt Beasley MD MAGNESIUMon 03-05-2022 Magnesium [Mass/Vol] 2.3 mg/dL Normal 1.5-2.5 [facility] Comment on above: Order Comment: FASTI NG:YES FASTING: YES Performed By: #### 1 7306, 905, 28706, 718, 66029, 622, 72754, 496 #### [facility] [place] [address] Hospital Cna: Matt Beasley MD PHOSPHATE ( PHOSPHORUS)on 03-05-2022 Phosphate [Mass/Vol] 4.5 mg/dL High 2.1-4.3 [facility] Comment on above: Performed By: #### 1 7306, 905, 64706, 718, 53271, 622, 20791, 496 #### [facility] [address], [address] [place] [address] Hospital Cna: Matt Beasley MD PTH, INTACT WITHOUT CALCIUMo [...] High Performed By: #### 1 7306, 905, 92614, 718, 58020, 622, 33063, 496 #### [facility] [address], [address] [place] [address] Hospital Cna: Matt Beasley MD TSH W/REFLEX TO FT4on 2021 TSH W/REFLEX TO FT4 4.31 mIU/L Normal 0.40-4.50 [facility] Comment on above: Performed By: #### 1 7306, 905, 10328, 718, 98240, 622, 72656, 496 #### [facility] [address], [address] [place], [place] [address] Hospital Cna: Matt Beasley MD URIC ACIDon 03-05-2022 Urate [Mass/Vol] 8.7 mg/dL High 2.5-7.0 [facility] Comment on above: Result Comment: Ther apeutic target for gout patients: <6.0 mg/dL Performed By: #### 1 7306, 905, 87131, 718, 75819, 622, 20679, 496 #### [facility] [address], [address] [place], [place] [address] Hospital Cna: Matt Beasley MD VITAMIN D,25-OH,TOTAL,IAon 0 03-05-2022 [...] D, (D2,D3), LC/MS/MS is recommended: order code 78379 (patients >2yrs). See Note 1 Note 1 For additional information, please refer to http://education.Miso/faq/TCN418 (This link is being provided for informational/ educational purposes only.) Performed By: #### 1 7306, 905, 79584, 718, 98160, 622, 61364, 496 #### [facility] [address] [facility], [address] [place] [address] Hospital Cna: Matt Beasley MD US carotid doppler BIon 01-02 US carotid doppler BI [facility] [place] [address] Ultrasound Report Signed Patient: Yesy Valadez MR#: [id number] 74 : 1940 Acct:[id number] Age/Sex: 81 / F ADM Date: 01/21/22 Loc: RT Room: Type: [facility] Attending Dr: Onel Wright MD Ordering Provider: [...] Kevon Hickman MD01/22/2022 12:41 PM Dictation [facility] Tech: Alissa Saundra Transcribed By: DENIA 01/22/22 1241 Dictated By: Kevon Hickman MD 01/22/22 1241 Signed By: 01/22/22 1241 Normal [facility] Complete Pulmonary Functiono n 01-21-2022 Complete Pulmonary Function [facility] Main [place] [address] [place] [address] Pulmonary Function Signed Patient: Yesy Valadez MR#: [id number] [birth year] : 1940 Acct:[id number] Age/Sex: 81 / F ADM Date: 01/21/22 Loc: RT Room: Type: [facility] Attending Dr: Onel Wright MD Ordering Provider: [...] of 1.17 L or 83% predicted. The PKH00-98% was supranormal at 2.15 L/sec or 214% predicted with this all likely related to the inadequate duration of exhalation. After a 350% longer duration of exhalation on the postbronchodilator effort, the forced vital capacity did improve by 25% to 1.47 L or 76% predicted. There is actually a 14% decline in the FEV1 and a 60% decline in the CBF84-42%. LUNG VOLUMES: Lung volumes by plethysmography indicate [...] caution. Clinical correlation is recommended. Transcribed By: NTS 01/22/22 1036 Dictated By: Jam Bucio MD 01/21/22 1240 Signed By: 01/22/22 1347 Normal [facility] CREATININE BLOODon 2 Creatinine [Mass/Vol] 1.04 mg/dL Normal 0.60-1.20 [facility] Comment on above: Order Comment: No: D o not add to previous draw Performed By: #### 2 5656 #### [facility] [address] eGFR- non- 50 ml/min/1.73sq m Abnormal >60 [facility] Comment on above: Order Comment: No: D o not add to previous draw Result Comment: Calc ulation may not be valid for patients over 70 years Performed By: #### 2 5656 #### [facility] [address] GFR/1.73 sq M.predicted among blacks MDRD (S/P/Bld) [Vol rate/Area] mL/min/{1.73_m2} Normal >60 [facility] Comment on above: Order Comment: No: D o not add to previous draw Result Comment: Calc ulation may not be valid for patients over 70 years Performed By: #### 2 5656 #### [facility] [address] Cardiovascular Lab Reporton 01-17-2022 Cardiovascular Lab Report [facility] Patient Name: Yesy Rodriguez [facility] MR #: [id number] Physician: Onel Choi M.D. Medicine Service Date: 01/16/2022 Division of Birthdate: 1940 Cardiology Room #: [id number] Adult Cardiovascular Services [facility] [address] [facility]. [place] [address] Cardiovascular Laboratory Report INDICATION: The patient is [...] She is now brought to the laboratory operations coordinator for cardiac catheterization. PROCEDURES: 1. Right heart catheterization. 2. Left heart catheterization. 3. Mitral valve study. 4. Aortic valve study. 5. Bilateral selective coronary angiography. 6. Limited right common femoral angiography. 7. Access into the right common femoral artery and vein under ultrasound guidance. METHODS: Procedure was explained to the patient with risks and benefits. She signed consent. She was brought to laboratory operations coordinator in a fasting state. The right groin area was prepped and draped in usual fashion. Micropuncture technique was used for access in the right common femoral artery. Inner cannula angiography was performed followed by upsizing to a 4-Lao x 11 cm sheath. Access was obtained using same technique in the right common femoral vein and a 6-Lao x 11 cm sheath was placed. A 6-Lao Orosco catheter was used for heart catheterization with measurement pressures and calculation of cardiac output using the estimated ROSE MARIE method. A 4-Lao JR4 diagnostic catheter was advanced to the [...] selective coronary angiography was then performed using 4-Lao JL4 and JR4 diagnostic catheters. Catheters were [...] 3. Moderately elevated right-sided filling pressures. 4. Wnyivrep-zh-frxami elevation of the left-sided filling pressures. 5. [...] (more content not included)... Normal [facility] POC GLUCOSE LABon 01-17-2022 Glucose [Mass/Vol] 109 mg/dL High 70-100 [facility] Comment on above: Performed By: #### 8 5499 #### [address] [place] [address], [facility] BASIC METABOLIC PANELon 01-01 Calcium [Mass/Vol] 9.2 mg/dL Normal 8.6-10.3 [facility] Comment on above: Order Comment: This order is a replacement of the rejected order with accession number [id number]. Performed By: #### 0 0071 #### [facility] [address] [place] [address], [facility] Chloride [Moles/Vol] 105 mmol/L Normal 98-107 [facility] Comment on above: Order Comment: This order is a replacement of the rejected order with accession number [id number]. Performed By: #### 0 0071 #### [facility] [address] [place] [id number], [facility] CO2 [Moles/Vol] 26 mmol/L Normal 21-31 [facility] Comment on above: Order Comment: This order is a replacement of the rejected order with accession number [id number]. Performed By: #### 0 0071 #### [facility] [address] [place] [address], [facility] Creatinine [Mass/Vol] 1.27 mg/dL High 0.60-1.20 [facility] Comment on above: Order Comment: This order is a replacement of the rejected order with accession number [id number]. Performed By: #### 0 0071 #### [facility] [address] eGFR- 49 ml/min/1.73sq m Abnormal >60 [facility] Comment on above: Order Comment: This order is a replacement of the rejected order with accession number [id number]. Result Comment: Calc ulation may not be valid for patients over 70 years Performed By: #### 0 0071 #### [facility] [address] eGFR- non- 40 ml/min/1.73sq m Abnormal >60 [facility] Comment on above: Order Comment: This order is a replacement of the rejected order with accession number [id number]. Result Comment: Calc ulation may not be valid for patients over 70 years Performed By: #### 0 0071 #### [facility] [address] [place] [address], [place] Glucose [Mass/Vol] 113 mg/dL High 70-100 [facility] Comment on above: Order Comment: This order is a replacement of the rejected order with accession number [id number]. Performed By: #### 0 0071 #### [facility] [address] [place] [address], [place] Potassium [Moles/Vol] 4.0 mmol/L Normal 3.5-5.1 [facility] Comment on above: Order Comment: This order is a replacement of the rejected order with accession number [id number]. Performed By: #### 0 0071 #### [facility] [address] [place] [address], [place] Sodium [Moles/Vol] 140 mmol/L Normal 136-145 [facility] Comment on above: Order Comment: This order is a replacement of the rejected order with accession number [id number]. Performed By: #### 0 0071 #### [facility] [address] [place] [address], [facility] Urea nitrogen [Mass/Vol] 48 mg/dL High 7-25 [facility] Comment on above: Order Comment: This order is a replacement of the rejected order with accession number [id number]. Performed By: #### 0 0071 #### [facility] [address] [place] [address], [place] Calcium [Mass/Vol] 9.3 mg/dL Normal 8.6-10.3 [facility] Comment on above: Performed By: #### 0 0071 #### [facility] [address] [place] [address], [place] Chloride [Moles/Vol] 106 mmol/L Normal 98-107 [facility] Comment on above: Performed By: #### 0 0071 #### [facility] [address] [place] [address], [facility] CO2 [Moles/Vol] 27 mmol/L Normal 21-31 [facility] Comment on above: Performed By: #### 0 0071 #### [facility] [address] [place] [address], [place] Creatinine [Mass/Vol] 1.47 mg/dL High 0.60-1.20 [facility] Comment on above: Performed By: #### 0 0071 #### [facility] [address] [place] [address], [facility] eGFR- 41 ml/min/1.73sq m Abnormal >60 [facility] Comment on above: Result Comment: Calc ulation may not be valid for patients over 70 years Performed By: #### 0 0071 #### [facility] [address] [place] [address], [facility] eGFR- non- 34 ml/min/1.73sq m Abnormal >60 [facility] Comment on above: Result Comment: Calc ulation may not be valid for patients over 70 years Performed By: #### 0 0071 #### [facility] [address] [place] [address], [place] Glucose [Mass/Vol] 107 mg/dL High 70-100 [facility] Comment on above: Performed By: #### 0 0071 #### [facility] [address] [place] [address], [place] Potassium [Moles/Vol] 4.5 mmol/L Normal 3.5-5.1 [facility] Comment on above: Performed By: #### 0 0071 #### [facility] [address] [place] [address], [place] Sodium [Moles/Vol] 141 mmol/L Normal 136-145 [facility] Comment on above: Performed By: #### 0 0071 #### [facility] [address] [facility] [address] Urea nitrogen [Mass/Vol] 51 mg/dL High 7-25 [facility] Comment on above: Performed By: #### 0 0071 #### [facility] [address] [facility]. [address] CBC COMPLETE BLOOD COUNTon 0 - Erythrocyte distribution width (RBC) [Ratio] 15.6 % High 11.5-15.0 [facility] Comment on above: Performed By: #### 5 0608 #### [facility] [address] Hematocrit (Bld) [Volume fraction] 39.3 % Normal 36.0-45.0 [facility] Comment on above: Performed By: #### 5 0608 #### [facility] [address] [facility]. [address] Hemoglobin (Bld) [Mass/Vol] 12.2 g/dL Normal 12.0-15.0 [facility] Comment on above: Performed By: #### 5 0608 #### [facility] [address] [facility]. [address] MCH (RBC) [Entitic mass] 28.7 pg Normal 27.0-33.0 [facility] Comment on above: Performed By: #### 5 0608 #### [facility] [address] [facility]. [address] MCHC (RBC) [Mass/Vol] 31.0 g/dL Low 32.0-35.0 [facility] Comment on above: Performed By: #### 5 0608 #### [facility] [address] [facility]. [address] MCV (RBC) [Entitic vol] 92.5 fL Normal 82.0-98.0 [facility] Comment on above: Performed By: #### 5 0608 #### [facility] [address] [place] [address], [facility] Nucleated RBC/100 WBC (Bld) [Ratio] 0 % Normal 0-0 [facility] Comment on above: Performed By: #### 5 0608 #### [facility] [address] [place] [address], [place] PLAT CNT 278 10*3/uL Normal 150-400 [facility] Comment on above: Performed By: #### 5 0608 #### [facility] [address] [place] [address], [facility] RBC (Bld) [#/Vol] 4.25 10*6/uL Normal 3.80-5.00 [facility] Comment on above: Performed By: #### 5 0608 #### [facility] [address] [place] [address], [facility] WBC (Bld) [#/Vol] 8.68 10*3/uL Normal 4.00-10.60 [facility] Comment on above: Performed By: #### 5 0608 #### [facility] [address] [facility] [place] [address], [facility] BASIC METABOLIC PANELon 12-01 Calcium [Mass/Vol] 10.2 mg/dL Normal 8.6-10.4 [facility] Comment on above: Order Comment: FASTI NG:YESFASTING: YES Performed By: #### 1 016, 867 #### [facility] [address] [place] [address], [address] [place], [place] [address] Hospital Cna: Matt Beasley MD Chloride [Moles/Vol] 100 mmol/L Normal 98-110 [facility] Comment on above: Order Comment: FASTI NG:YESFASTING: YES Performed By: #### 1 016, 867 #### [facility] [address] , [address] Hospital Cna: Matt Beasley MD CO2 [Moles/Vol] 28 mmol/L Normal 20-32 [facility] Comment on above: Order Comment: FASTI NG:YESFASTING: YES Performed By: #### 1 164, 867 #### [facility] [place] [address] Hospital Cna: Matt Beasley MD Creatinine [Mass/Vol] 1.54 mg/dL High 0.60-0.[address] [facility] Comment on above: Order Comment: FASTI NG:YESFASTING: YES Result Comment: For patients >49 years of age, the reference limit for Creatinine is approximately 13% higher for people identified as -Haitian. Performed By: #### 1 164, 867 #### [facility] [place] [address] Hospital Cna: Matt Beasley MD eGFR NON-AFR. NAURUAN 31 mL/min/1.73m2 Low > OR = 60 [facility] Comment on above: Order Comment: FASTI NG:YESFASTING: YES Performed By: #### 1 164, 867 #### [facility] [place] [address] Hospital Cna: Matt Beasley MD GFR/1.73 sq M.predicted among blacks MDRD (S/P/Bld) [Vol rate/Area] 36 mL/min/{1.73_m2} Low > OR = 60 [facility] Comment on above: Order Comment: FASTI NG:YESFASTING: YES Performed By: #### 1 164, 867 #### [facility] [place] [address] Hospital Cna: Matt Beasley MD Glucose [Mass/Vol] 119 mg/dL High 65-99 [facility] Comment on above: Order Comment: FASTI NG:YESFASTING: YES Result Comment: Fasting reference interval For someone without known diabetes, a glucose value between 100 and 125 mg/dL is consistent with prediabetes and should be confirmed with a follow-up test. Performed By: #### 1 016, 867 #### [facility] [address] [place] [address] Hospital Cna: Matt Beasley MD Potassium [Moles/Vol] 4.1 mmol/L Normal 3.5-5.[address] [facility] [address] [facility] Comment on above: Order Comment: FASTI NG:YESFASTING: YES Performed By: #### 1 016, 867 #### [facility] [place] [address] Hospital Cna: Matt Beasley MD Sodium [Moles/Vol] 140 mmol/L Normal 135-146 [facility] Comment on above: Order Comment: FASTI NG:YESFASTING: YES Performed By: #### 1 016, 867 #### [facility] [place] [address] Hospital Cna: Matt Beasley MD Urea nitrogen [Mass/Vol] 45 mg/dL High 7-25 [facility] Comment on above: Order Comment: FASTI NG:YESFASTING: YES Performed By: #### 1 016, 867 #### [facility] [place] [address] Hospital Cna: Matt Beasley MD Urea nitrogen/Creatinine [Mass ratio] 29 mg/mg High 6-22 [facility] Comment on above: Order Comment: FASTI NG:YESFASTING: YES Performed By: #### 1 016, 867 #### [facility] [place] [address] Hospital Cna: Matt Beasley MD BASIC METABOLIC PANEL 11-2 Calcium [Mass/Vol] 10.1 mg/dL Normal 8.6-10.4 [facility] Comment on above: Performed By: #### 1 016, 867 #### [facility] [place] [address] Hospital Cna: Matt Beasley MD Chloride [Moles/Vol] 103 mmol/L Normal 98-110 [facility] Comment on above: Performed By: #### 1 016, 867 #### [facility] [address] [place] [address] Hospital Cna: Matt Beasley MD CO2 [Moles/Vol] 28 mmol/L Normal 20-32 [facility] Comment on above: Performed By: #### 1 016, 867 #### [facility] [place] [address] Hospital Cna: Matt Beasley MD Creatinine [Mass/Vol] 1.29 mg/dL High 0.60-0.[address] [facility] Comment on above: Result Comment: For patients >49 years of age, the reference limit for Creatinine is approximately 13% higher for people identified as -Haitian. Performed By: #### 1 016, 867 #### [facility] [place] [place] [address] [facility] Cna: Matt Beasley MD eGFR NON-AFR. NAURUAN 38 mL/min/1.73m2 Low > OR = 60 [facility] Comment on above: Performed By: #### 1 016, 867 #### [facility] [place] [address] [facility] Cna: Matt Beasley MD GFR/1.73 sq M.predicted among blacks MDRD (S/P/Bld) [Vol rate/Area] 44 mL/min/{1.73_m2} Low > OR = 60 [facility] Comment on above: Performed By: #### 1 016, 867 #### [facility] [place] [address] [facility] Cna: Matt Beasley MD Glucose [Mass/Vol] 107 mg/dL High 65-99 [facility] Comment on above: Result Comment: Fasting reference interval For someone without known diabetes, a glucose value between 100 and 125 mg/dL is consistent with prediabetes and should be confirmed with a follow-up test. Performed By: #### 1 016, 867 #### [facility] [place] [address] [facility] Cna: Matt Beasley MD Potassium [Moles/Vol] 4.1 mmol/L Normal 3.5-5.[address] [facility] Comment on above: Performed By: #### 1 164, 867 #### [facility] [place] [address] [facility] Cna: Matt Beasley MD Sodium [Moles/Vol] 139 mmol/L Normal 135-146 [facility] Comment on above: Performed By: #### 1 164, 867 #### [facility] [place] [address] [facility] Cna: Matt Beasley MD Urea nitrogen [Mass/Vol] 30 mg/dL High 7- [facility] Comment on above: Performed By: #### 1 164, 867 #### [facility] [place] [address] [facility] Cna: Matt Beasley MD Urea nitrogen/Creatinine [Mass ratio] 23 mg/mg High 6- [facility] Comment on above: Performed By: #### 1 164, 867 #### [facility] [place] [address] [facility] Cna: Matt Beasley MD T4 (THYROXINE), TOTALon 10-02 T4 [Mass/Vol] 7.8 ug/dL Normal 5.1-11.9 [facility] Comment on above: Performed By: #### 1 164, 867 #### [facility] of [address], [address] [place] [address] Hospital Cna: Matt Beasley MD TSHon 10-23-2021 TSH Qn 7.48 m[IU]/L High 0.40-4.50 [facility] Comment on above: Performed By: #### 1 164, 867 #### [facility] [place] [address] [facility] Cna: Matt Beasley MD CA 125on 09-26-2021 CA 125 26 U/mL Normal <38 [facility] Comment on above: Performed By: #### C A125 #### [employer] [address] [place] [address] Field Tech: Andrew Blakely MD [place] 125Ordered By: Anabel Babb on on 09-26-2021 CA 125 26 U/mL <[address] [facility] [employer] Work Phone: [facility] [employer] Work Phone: Microscopic UrinalysisOrdere d By: Anabel Duncan on 09-26-2021 - [facility] [employer] Work Phone: Amorphous, UA NOT REPORTED None [facility] Work Phone: Bacteria, UA NOT REPORTED None [facility] Work Phone: Casts UA NOT REPORTED [facility] Work Phone: Crystals, UA NOT REPORTED None /HPF [facility] Work Phone: Epithelial Cells UA 0 TO 2 [facility] Work Phone: Mucus, UA NOT REPORTED None [facility] Work Phone: Other Observations UA NOT REPORTED NOT REQ. M [facility] Work Phone: RBC, UA 2 TO 5 [facility] Work Phone: Comment on above: Reference range defi margarita for non-centrifuged specimen. Renal Epithelial, UA NOT REPORTED 0 /HPF [facility] Work Phone: Trichomonas, UA NOT REPORTED None [facility] Work Phone: WBC, UA 0 TO [address] [facility] [employer] Work Phone: Yeast, UA NOT REPORTED None [facility] Work Phone: [facility] Work Phone: UA w/Reflex Cultureon 2020 Bilirubin, SemiQt,Ur Negative Normal NEG [facility] Comment on above: Performed By: #### U AX, UMICAO #### [facility] [address] [place] [address] Field Tech: Andrew Blakely MD Blood, Urine Negative Normal NEG [facility] Comment on above: Performed By: #### U AX, UMICAO #### [facility] [address] [place] [address] Field Tech: Andrew Blakely MD Clarity (U) Clear Normal CLEAR [facility] Comment on above: Performed By: #### U AX, UMICAO #### [facility] [address] [place] [address] Field Tech: Andrew Blakely MD Color (U) Yellow Normal YEL [facility] Comment on above: Performed By: #### U AX, UMICAO #### [facility] [address] [place] [address] Field Tech: Andrew Blakely MD Glucose Ql (U) Negative Normal NEG [facility] Comment on above: Performed By: #### U AX, UMICAO #### [facility] [address] [place] [address] Field Tech: Andrew Blakely MD Ketones Ql (U) Negative Normal NEG [facility] Comment on above: Performed By: #### U AX, UMICAO #### [facility] [address] [place] [address] Field Tech: Andrew Blakely MD Leukocyte esterase Test strip Ql (U) TRACE Abnormal NEG [facility] Comment on above: Performed By: #### U AX, UMICAO #### [facility] [address] [place] [address] Field Tech: Andrew Blakely MD Nitrite,Ur Negative Normal NEG [facility] Comment on above: Performed By: #### U AX, UMICAO #### [facility] [address] [place] [address] Field Tech: Andrew Blakely MD PH,Ur 7.0 Normal 5.0-8.0 [facility] Comment on above: Performed By: #### U AX, UMICAO #### [facility] [address] [place] [address] Field Tech: Andrew Blakely MD Protein Ql (U) Negative Normal NEG [facility] Comment on above: Performed By: #### U AX, UMICAO #### [facility] [address] [place] [address] Field Tech: Andrew Blakely MD Spec. [place],Ur 1.015 Normal 1.005-1.030 [facility] Comment on above: Performed By: #### U AX, UMICAO #### [facility] [address] [place] [address] Field Tech: Andrew Blakely MD Urobilinogen,Ur Normal Normal NORM [facility] Comment on above: Performed By: #### U AX, UMICAO #### [facility] [address] [place] [address] Field Tech: Andrew Blakely MD Comment NOT REPORTED Normal [facility] Comment on above: Performed By: #### U AX, UMICAO #### [address] [address] Field Tech: Andrew Blakely MD Urinalysis Reflex to Culture Ordered By: Anabel Duncan on 09-26-2021 Bilirubin Urine Negative NEGATIVE [facility] Work Phone: Color, UA Yellow Yellow [facility] Work Phone: Glucose, Ur Negative NEGATIVE [facility] Work Phone: Interpretation and review of laboratory results Abnormal [facility] Work Phone: Ketones Ql (U) Negative NEGATIVE [facility] Work Phone: Leukocyte esterase Test strip Ql (U) TRACE Abnormal NEGATIVE [facility] Phone: Nitrite, Urine Negative NEGATIVE [employer] [facility] Work Phone: pH, UA 7.[address] [facility] [employer] Work Phone: Protein, UA Negative NEGATIVE [facility] Work Phone: Specific [place], UA 1.015 [employer] Work Phone: Turbidity UA Clear Clear [facility] Work Phone: Urinalysis Comments NOT REPORTED [facility] [employer] Work Phone: Urine Hgb Negative NEGATIVE [facility] [employer] Phone: Urobilinogen, Urine Normal Normal [facility] [employer] Phone: [facility] [employer] Phone: Urinalysis,Microon 1 ----- Normal [facility] Comment on above: Performed By: #### U AX UMICAO #### [employer] [address] [place] [address] Field Tech: Andrew Blakely MD Epithelial cells LM Ql (Urine sed) 0 TO 2 Normal 0-5 [facility] Comment on above: Performed By: #### U AX UMICAO #### [employer] [address] [place] [address] Field Tech: Andrew Blakely MD Urine RBC's 2 TO 5 Normal 0-4 [facility] Comment on above: Result Comment: Refe rence range defined for non-centrifuged specimen. Performed By: #### U AX UMICAO #### [employer] [address] [place] [address] Field Tech: Andrew Blakely MD Urine WBC's 0 TO 2 Normal 0-5 [facility] Comment on above: Performed By: #### U AX, UMICAO #### [facility] [address] [place] [address] Field Tech: Andrew Blakely MD Amorphous sediment LM Ql (Urine sed) NOT REPORTED Normal NONE [facility] Comment on above: Performed By: #### U AX, UMICAO #### [facility] [address] [place] [address] Field Tech: Andrew Blakely MD Bacteria NOT REPORTED Normal NONE [facility] Comment on above: Performed By: #### U AX, UMICAO #### [facility] [address] [place] [address] Field Tech: Andrew Blakely MD Casts NOT REPORTED Normal 0-8 [facility] Comment on above: Performed By: #### U AX, UMICAO #### [facility] [address] [place] [address] Field Tech: Andrew Blakely MD Crystals LM Nom (Urine sed) NOT REPORTED Normal NONE [facility] Comment on above: Performed By: #### U AX, UMICAO #### [facility] [address] [place] [address] Field Tech: Andrew Blakely MD Epithelial, Renal NOT REPORTED Normal 0 [facility] Comment on above: Performed By: #### U AX, UMICAO #### [facility] [address] [place] [address] Field Tech: Andrew Blakely MD Mucus Strands NOT REPORTED Normal NONE [facility] Comment on above: Performed By: #### U AX, UMICAO #### [facility] [address] [place] [address] Field Tech: Andrew Blakely MD Other Observations NOT REPORTED Normal NREQ [facility] Comment on above: Performed By: #### U AX, UMICAO #### [facility] [address] [place] [address] [id number] Field Tech: Andrew Blakely MD Trichomonas NOT REPORTED Normal NONE [facility] Comment on above: Performed By: #### CALVIN MEJIA #### [facility] [address] [place], [place] [phone] Field Tech: Andrew Blakely MD Yeast NOT REPORTED Normal NONE [facility] Comment on above: Performed By: #### CALVIN MEJIA #### [facility] [address] [place], [place] [phone] Field Tech: Andrew Blakely MD [facility] 07-27-2021 Albumin [Mass/Vol] 4.4 g/dL Normal 3.6-5.1 [facility] Comment on above: Performed By: #### 1 164, 867 #### [facility] [place] [address] [facility] Cna: Matt Beasley MD Albumin/Globulin [Mass ratio] 1.8 {ratio} Normal 1.0-2.5 [facility] Comment on above: Performed By: #### 1 164, 867 #### [facility] [place] [address] [facility] Cna: Matt Beasley MD ALP [Catalytic activity/Vol] 67 U/L Normal 37-153 [facility] Comment on above: Performed By: #### 1 164, 867 #### [facility] [place] [address] [facility] Cna: Matt Beasley MD ALT [Catalytic activity/Vol] 10 U/L Normal 6-29 [facility] Comment on above: Performed By: #### 1 164, 867 #### [facility] [place] [address] [facility] Cna: Matt Beasley MD AST [Catalytic activity/Vol] 17 U/L Normal 10-35 [facility] Comment on above: Performed By: #### 1 164, 867 #### [facility] [address], [address] [place] [address] Hospital Cna: aMtt Beasley MD Bilirubin [Mass/Vol] 0.4 mg/dL Normal 0.2-1.2 [facility] Comment on above: Performed By: #### 1 164, 867 #### [facility] [place] [address] [facility] Cna: Matt Beasley MD Calcium [Mass/Vol] 9.8 mg/dL Normal 8.6-10.4 [facility] Comment on above: Performed By: #### 1 164, 867 #### [facility] [place] [address] [facility] Cna: Matt Beasley MD Chloride [Moles/Vol] 104 mmol/L Normal 98-110 [facility] Comment on above: Performed By: #### 1 164, 867 #### [facility] [place] [address] [facility] Cna: Matt Beasley MD CO2 [Moles/Vol] 25 mmol/L Normal 20-32 [facility] Comment on above: Performed By: #### 1 164, 867 #### [facility] [place] [address] [facility] Cna: Matt Beasley MD Creatinine [Mass/Vol] 1.37 mg/dL High 0.60-0.[address] [facility] Comment on above: Result Comment: For patients >49 years of age, the reference limit for Creatinine is approximately 13% higher for people identified as -Haitian. Performed By: #### 1 164, 867 #### [facility] [place] [address] [facility] Cna: Matt Beasley MD eGFR NON-AFR. NAURUAN 36 mL/min/1.73m2 Low > OR = 60 [facility] Comment on above: Performed By: #### 1 164, 867 #### [facility] [address] [place] [address] Hospital Cna: Matt Beasley MD GFR/1.73 sq M.predicted among blacks MDRD (S/P/Bld) [Vol rate/Area] 41 mL/min/{1.73_m2} Low > OR = 60 [facility] Comment on above: Performed By: #### 1 0165, 867 #### [facility] [place] [address] [facility] Cna: Matt Beasley MD Globulin (S) [Mass/Vol] 2.5 g/dL Normal 1.9-3.7 [facility] Comment on above: Performed By: #### 1 016, 867 #### [facility] [place] [address] [facility] Cna: Matt Beasley MD Glucose [Mass/Vol] 97 mg/dL Normal 65-99 [facility] Comment on above: Result Comment: Fasting reference interval Performed By: #### 1 0165, 867 #### [facility] [place] [address] [facility] Cna: Matt Beasley MD Potassium [Moles/Vol] 5.3 mmol/L Normal 3.5-5.[address] [facility] Comment on above: Performed By: #### 1 0165, 867 #### [facility] [place] [address] [facility] Cna: Matt Beasley MD Protein [Mass/Vol] 6.9 g/dL Normal 6.1-8.1 [facility] Comment on above: Performed By: #### 1 016, 867 #### [facility] [place] [address] [facility] Cna: Matt Beasley MD Sodium [Moles/Vol] 137 mmol/L Normal 135-146 [facility] Comment on above: Performed By: #### 1 0165, 867 #### [facility] [place] [address] [facility] Cna: Matt Beasley MD Urea nitrogen [Mass/Vol] 25 mg/dL Normal 7-25 [facility] Comment on above: Performed By: #### 1 016, 867 #### [facility] [address], [address] [place] [address] Hospital Cna: Matt Beasley MD Urea nitrogen/Creatinine [Mass ratio] 18 mg/mg Normal 6-22 [facility] Comment on above: Performed By: #### 1 016, 867 #### [facility] [address], [address] [place] [address] Hospital Cna: Matt Beasley MD LIPID PANEL, [facility] 07-02 Cholesterol [Mass/Vol] 159 mg/dL Normal <200 [facility] Comment on above: Performed By: #### 1 0165, 867 #### [facility] [address], [address] [place] [address] Hospital Cna: Matt Beasley MD Cholesterol in HDL [Mass/Vol] 63 mg/dL Normal > OR = 50 [facility] Comment on above: Performed By: #### 1 016, 867 #### [facility] [place] [address] [facility] Cna: Matt Beasley MD Cholesterol in LDL [Mass/Vol] [...] LDL-C. Sawyer SS et al. TORY. 2013;310(19): 4085-0739 (http://education.[employer].Touchbase/faq/PJK983) Performed By: #### 1 016, 867 #### [facility] [address], [address] [place] [address] Hospital Cna: Matt Beasley MD Cholesterol.total/Cho lesterol in HDL [Mass ratio] 2.5 {ratio} Normal <5.0 [facility] Comment on above: Performed By: #### 1 016, 867 #### [facility] [place] [address] [facility] Cna: Matt Beasley MD NON HDL CHOLESTEROL 96 mg/dL (calc) Normal <130 [facility] Comment on above: Result Comment: For patients with diabetes plus 1 major ASCVD risk factor, treating to a non-HDL-C goal of <100 mg/dL (LDL-C of <70 mg/dL) is considered a therapeutic option. Performed By: #### 1 016, 867 #### [facility] [place] [address] [facility] Cna: Matt Beasley MD Triglyceride [Mass/Vol] 156 mg/dL High <150 [facility] Comment on above: Performed By: #### 1 164, 867 #### [facility] [place] [address] [facility] Cna: Matt Beasley MD UA w/Reflex Cultureon 2020 Bilirubin, SemiQt,Ur Negative Normal NEG [facility] Comment on above: Performed By: #### U AX, UMICAO #### [facility] [employer] [address] [place] [address] [phone] Field Tech: Andrew Blakely MD Blood, Urine Negative Normal NEG [facility] Comment on above: Performed By: #### U AX, UMICAO #### [employer] [address] [place] [address] [phone] Field Tech: Andrew Blakely MD Clarity (U) CLEAR Normal CLEAR [facility] Comment on above: Performed By: #### U AX, UMICAO #### [employer] [address] [place] [address] [phone] Field Tech: Andrew Blakely MD Color (U) YELLOW Normal YEL [facility] Comment on above: Performed By: #### U AX, UMICAO #### [facility] [address] [place] [address] Field Tech: Andrew Blakely MD Glucose Ql (U) Negative Normal NEG [facility] Comment on above: Performed By: #### U AX, UMICAO #### [facility] [address] [place] [address] Field Tech: Andrew Blakely MD Ketones Ql (U) Negative Normal NEG [facility] Comment on above: Performed By: #### U AX, UMICAO #### [facility] [address] [place] [address] Field Tech: Andrew Blakely MD Leukocyte esterase Test strip Ql (U) MODERATE Abnormal NEG [facility] Comment on above: Performed By: #### U AX, UMICAO #### [facility] [employer] [address] [place] [address] Field Tech: Andrew Blakely MD Nitrite,Ur Negative Normal NEG [facility] Comment on above: Performed By: #### U AX, UMICAO #### [facility] [address] [place] [address] Field Tech: Andrew Blakely MD PH,Ur 6.5 Normal 5.0-8.0 [facility] Comment on above: Performed By: #### U AX, UMICAO #### [facility] [address] [place] [address] Field Tech: Andrew Blakely MD Protein Ql (U) Negative Normal NEG [facility] Comment on above: Performed By: #### U AX, UMICAO #### [facility] [address] [place] [address] Field Tech: Andrew Blakely MD Spec. [place],Ur 1.006 Normal 1.005-1.030 [facility] Comment on above: Performed By: #### U AX, UMICAO #### [facility] [address] [place] [address] Field Tech: Andrew Blakely MD Urobilinogen,Ur Normal Normal NORM [facility] Comment on above: Performed By: #### U AX, UMICAO #### [facility] [address] [place] [address] Field Tech: Andrew Blakely MD Comment NOT REPORTED Normal [facility] Comment on above: Performed By: #### U AX, UMICAO #### [facility] [address] [place] [address] Field Tech: Andrew Blakely MD Urinalysis,Microon 1 ----- Normal [facility] Comment on above: Performed By: #### U AX, UMICAO #### [facility] [employer] [address] [place] [address] Field Tech: Andrew Blakely MD Bacteria MANY Abnormal NONE [facility] Comment on above: Performed By: #### U AX, UMICAO #### [facility] [employer] [address] [place] [address] Field Tech: Andrew Blakely MD Epithelial cells LM Ql (Urine sed) 0 TO 2 Normal 0-5 [facility] Comment on above: Performed By: #### U AX, UMICAO #### [facility] [address] [place] [address] Field Tech: Andrew Blakely MD Urine RBC's 0 TO 2 Normal 0-2 [facility] Comment on above: Performed By: #### U AX, UMICAO #### [facility] [address] [place] [address] Field Tech: Andrew Blakely MD Urine WBC's 2 TO 5 Normal 0-5 [facility] Comment on above: Performed By: #### U AX, UMICAO #### [facility] [address] [place] [address] Field Tech: Andrew Blakely MD Amorphous sediment LM Ql (Urine sed) NOT REPORTED Normal [facility] Comment on above: Performed By: #### U AX, UMICAO #### [facility] [address] [place] [address] Field Tech: Andrew Blakely MD Casts NOT REPORTED Normal 0-2 [facility] Comment on above: Performed By: #### U AX, UMICAO #### [facility] [address] [place] [address] Field Tech: Andrew Blakely MD Crystals LM Nom (Urine sed) NOT REPORTED Normal [facility] Comment on above: Performed By: #### U AX, UMICAO #### [facility] [employer] [address] [place] [address] Field Tech: Andrew Blakely MD Epithelial, Renal NOT REPORTED Normal 0 [facility] Comment on above: Performed By: #### U AX, UMICAO #### [facility] [employer] [address] [place] [address] Field Tech: Andrew Blakely MD Mucus Strands NOT REPORTED Normal NONE [facility] Comment on above: Performed By: #### U AX, UMICAO #### [facility] [address] [place] [address] Field Tech: Andrew Blakely MD Other Observations NOT REPORTED Normal NREQ [facility] Comment on above: Performed By: #### U AX, UMICAO #### [facility] [address] [place] [address] Field Tech: Andrew Blakely MD Trichomonas NOT REPORTED Normal NONE [facility] Comment on above: Performed By: #### U AX, UMICAO #### [facility] [address] [place], [place] [phone] Field Tech: Andrew Blakely MD Yeast NOT REPORTED Normal NONE [facility] Comment on above: Performed By: #### U AX, CALVIN #### [facility] [address] [place] [address] Field Tech: Andrew Blakely MD Vital Signs Date Time Vital Sign Value Performing Clinician Facility 05-10-2025 11:33-0400 Body height 149.86 cm [facility] 05-10-2025 11:33-0400 Body mass index (BMI) [Ratio] 24.4 kg/m2 [facility] 05-10-2025 11:33-0400 Body weight 54.88 kg [facility] 05-10-2025 11:33-0400 Diastolic blood pressure 62 mm[Hg] [facility] 05-10-2025 11:33-0400 Heart rate 63 /min [facility] 05-10-2025 11:33-0400 Respiratory rate 16 /min [facility] 05-10-2025 11:33-0400 SaO2% (BldA) [Mass fraction] 98 % [facility] 05-10-2025 11:33-0400 Systolic blood pressure 133 mm[Hg] [facility] 01-31-2025 10:33-0500 Body height 139.7 cm Soraida Bethea [employer] Work Phone: [facility] 01-31-2025 10:33-0500 Body mass index (BMI) [Ratio] 27.66 kg/m2 Soraida Singhpatrick [employer] Work Phone: [facility] 01-31-2025 10:33-0500 Body temperature 97.11 [degF] Soraida Lunak [employer] Work Phone: [facility] 01-31-2025 10:33-0500 Body weight 53.98 kg Soraida Lunak HOUSE WORK[employer] GENER[employer] Work Phone: [facility] 03-03-2025 10:33-0500 Diastolic blood pressure 80 mm[Hg] Soraida Bethea HOUSE WORKER GENERAL Work Phone: [facility] 01-31-2025 10:33-0500 Systolic blood pressure 136 mm[Hg] Soraida Bethea [employer] WORK[employer] Work Phone: [facility] 01-03-2025 10:04-0500 Body mass index (BMI) [Ratio] 24.64 kg/m2 Soraida Bethea [employer]SE WORK[employer] Work Phone: [facility] 01-03-2025 10:04-0500 Body temperature 97.11 [degF] Soraida Bethea [employer] WORK[employer] Work Phone: [facility] 01-03-2025 10:04-0500 Body weight 55.34 kg Soraida Bethea HOUSE WORKER [employer]AL Work Phone: [facility] 01-03-2025 10:04-0500 Diastolic blood pressure 64 mm[Hg] Soradia Bethea HOUSE WORKER [employer]AL Work Phone: [facility] 01-03-2025 10:04-0500 Systolic blood pressure 122 mm[Hg] Soraida Bethea HOUSE WORKER [employer]AL Work Phone: [facility] 07-08-2023 11:00-0400 Body height 149.86 cm Albin Englandkarma Other [employer] Other 07-08-2023 11:00-0400 Body mass index (BMI) [Ratio] 26.17 kg/m2 Fabiojulio [employer] Other [employer] Other 07-08-2023 11:00-0400 Body temperature 96.5 [degF] Albin TomásOnline Dealer Other [employer] Other 07-08-2023 11:00-0400 Body weight 58.79 kg Albin Kaceybrian Other [employer] Other 07-08-2023 11:00-0400 Diastolic blood pressure 80 mm[Hg] Aziz Bakhous Other [employer] Other 07-08-2023 11:00-0400 Respiratory rate 18 /min Aziz Bakhous Other [employer] Other 07-08-2023 11:00-0400 SaO2% (BldA) [Mass fraction] 96 % Aziz Bakhous Other [employer] Other 07-08-2023 11:00-0400 Systolic blood pressure 140 mm[Hg] Aziz Bakhous Other [employer] Other 01-21-2023 11:20-0500 Body height 149.86 cm Aziz Bakhous Other [employer] Other 01-21-2023 11:20-0500 Body mass index (BMI) [Ratio] 25.85 kg/m2 Aziz Bakhous Other [employer] Other 01-21-2023 11:20-0500 Body weight 58.06 kg Aziz Bakhous Other [employer] Other 01-21-2023 11:20-0500 Diastolic blood pressure 73 mm[Hg] Aziz Bakhous Other [employer] Other 01-21-2023 11:20-0500 Respiratory rate 18 /min Aziz Bakhous Other [employer] Other 01-21-2023 11:20-0500 SaO2% (BldA) [Mass fraction] 98 % Aziz Bakhous Other [employer] Other 01-21-2023 11:20-0500 Systolic blood pressure 121 mm[Hg] Aziz Bakhous Other [employer] Other 09-17-2022 15:40-0400 Body height 149.86 cm Aziz Bakhous Other [employer] Other 09-17-2022 15:40-0400 Body mass index (BMI) [Ratio] 24.6 kg/m2 Aziz Bakhous Other [employer] Other 09-17-2022 15:40-0400 Body temperature 97.1 [degF] Aziz Bakhous Other [employer] Other 09-17-2022 15:40-0400 Body weight 55.25 kg Aziz Bakhous Other [employer] Other 09-17-2022 15:40-0400 Diastolic blood pressure 78 mm[Hg] Aziz Bakhous Other [employer] Other 09-17-2022 15:40-0400 Respiratory rate 18 /min Aziz Bakhous Other [employer] Other 09-17-2022 15:40-0400 SaO2% (BldA) [Mass fraction] 99 % Aziz Bakhous Other [employer] Other 09-17-2022 15:40-0400 Systolic blood pressure 140 mm[Hg] Aziz Bakhous Other [employer] Other 04-23-2022 15:40-0400 Body height 149.86 cm Aziz Bakhous Other [employer] Other 04-23-2022 15:40-0400 Body mass index (BMI) [Ratio] 22.94 kg/m2 Albin Englands Other [employer] Other 04-23-2022 15:40-0400 Body temperature 96.4 [degF] Albin Bonner Other [employer] Other 04-23-2022 15:40-0400 Body weight 51.53 kg Albin Englands Other [employer] Other 04-23-2022 15:40-0400 Diastolic blood pressure 82 mm[Hg] Albin Englands Other [employer] Other 04-23-2022 15:40-0400 Respiratory rate 18 /min Albin Bonner Other [employer] Other 04-23-2022 15:40-0400 SaO2% (BldA) [Mass fraction] 99 % Albin Bonner Other [employer] Other 04-23-2022 15:40-0400 Systolic blood pressure 149 mm[Hg] Albin Englands Other [employer] Other Encounters Encounter Date Encounter Type Care Provider Facility Start: 06-01-2025 End: 06-01-2025 Renetta Bethea NP Work Phone: [facility] Comment on above: Mixed hyperlipidemia Start: 05-16-2025 End: 05-16-2025 ambulatory [facility] Start: 05-10-2025 End: 05-10-2025 ambulatory [facility] Work Phone: Start: 05-10-2025 End: 05-10-2025 Patient encounter procedure [facility] Chetan Work Phone: Start: 05-02-2025 Non-patient / Non-visit [facility] [employer] Work Phone: Start: 03-09-2025 End: 03-09-2025 ambulatory IMAN KOLEDA [facility] Start: 03-09-2025 End: 03-09-2025 Subsequent hospital visit by physician [facility] Lab Drawing Room [facility] Comment on above: 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 Start: 01-31-2025 End: 01-31-2025 Bamboo flowsheet Soraida Bethea HOUSE WORKER [employer] Work Phone: [facility] Start: 01-31-2025 End: 01-31-2025 Bamboo flowsheet Soraida Bethea [employer]SE WORKER [employer]AL Work Phone: [facility] Start: 01-31-2025 End: 01-31-2025 Patient encounter procedure Soraida Bethea [employer] WORK[employer] Work Phone: [facility] Comment on above: Encounter for annual wellness exam in Medicare patient (Primary Dx); Chronic heart failure, unspecified heart failure type (CMS/HCC); Essential hypertension (CMS/HCC); Mixed hyperlipidemia (CMS/HCC); Permanent atrial fibrillation (CMS/HCC); Pulmonary hypertension (CMS/HCC); Stage 3b chronic kidney disease (HCC) (CMS/HCC); Type 2 diabetes mellitus with chronic kidney disease, without long-term current use of insulin, unspecified CKD stage (CMS/HCC); Longstanding persistent atrial fibrillation (CMS/HCC); Acute diastolic heart failure (CMS/HCC); Chronic diastolic heart failure (CMS/HCC); Malignant neoplasm of ovary, unspecified laterality (CMS/HCC); [...] ear with restricted hearing of left ear Start: 01-31-2025 End: 01-31-2025 ambulatory SORAIDA BETHEA Not Available Start: 01-17-2025 End: 01-17-2025 Telephone encounter Rochelle Oneil HOUSE WORKER GENERAL Work Phone: [facility] Comment on above: Injection Start: 01-17-2025 End: 01-17-2025 Office outpatient visit 25 minutes Rochelle Oneil NP Work Phone: [facility] Comment on above: Impingement syndrome of left shoulder (Primary Dx); Arthritis of left acromioclavicular joint; Chronic left shoulder pain Start: 01-17-2025 End: 01-17-2025 ambulatory ROCHELLE ONEIL Not Available Start: 01-03-2025 End: 01-03-2025 Bamboo flowsheet Soraida Bethea HOU[employer] WORKER [employer]AL Work Phone: [facility] Start: 01-03-2025 End: 01-03-2025 Bamboo flowsheet Soraida Bethea [employer] WORKER [employer] Work Phone: [facility] Start: 01-03-2025 End: 01-03-2025 Office outpatient visit 25 minutes Soraida Bethea HOUSE WORKER [employer]AL Work Phone: [facility] Comment on above: Essential hypertensi on (CMS/HCC) (Primary Dx); Cerumen debris on tympanic membrane of both ears Start: 01-03-2025 End: 01-03-2025 ambulatory SORAIDA BETHEA Not Available Start: 12-31-2024 End: 12-31-2024 Refill Lexy Mei MD Work Phone: [facility] Comment on above: 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, without long-term current use of insulin, unspecified CKD stage (CMS/HCC) Start: 11-17-2024 End: 11-18-2024 Patient encounter procedure [facility] Ewelina Sims [facility] Comment on above: 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) Start: 11-17-2024 End: 11-18-2024 ambulatory SORAIDA RAINESZPATRICK Not Available Start: 11-10-2024 End: 11-10-2024 ambulatory [facility] Start: 10-15-2024 End: 10-15-2024 Refill Elmira G Stephanie DO Work Phone: [facility] Comment on above: Primary hypertension (CMS/HCC) Start: 10-01-2024 End: 10-01-2024 Refill Elmira G Stephanie DO Work Phone: [facility] Comment on above: Primary hypertension (CMS/HCC) Start: 09-08-2024 End: 09-08-2024 ambulatory [facility] Start: 08-11-2024 End: 08-11-2024 Refill Elmira G Stephanie DO Work Phone: [facility] Comment on above: Mixed hyperlipidemia (CMS/HCC) Start: 07-31-2024 End: 08-03-2024 Refill Elmira G Stephanie DO Work Phone: [facility] Comment on above: Primary hypertension (CMS/HCC) Start: 07-05-2024 End: 07-05-2024 ambulatory ROCHELLE ONEIL Not Available Start: 06-28-2024 End: 06-28-2024 ambulatory MAMIE GERBER Not Available Start: 06-22-2024 End: 06-24-2024 ambulatory MAMIE GERBER Not Available Start: 06-16-2024 End: 06-16-2024 ambulatory KATHARINA CRAFT Not Available Start: 06-14-2024 End: 06-14-2024 ambulatory MAMIE GERBER Not Available Start: 06-09-2024 End: 06-09-2024 ambulatory DIMPLE EASON Not Available Start: 05-27-2024 End: 05-27-2024 ambulatory [facility] Start: 05-26-2024 End: 05-26-2024 ambulatory SORAIDA BETHEA Not Available Start: 04-05-2024 End: 04-05-2024 ambulatory ROCHELLE ONEIL Not Available Start: 01-12-2024 Bamboo flowsheet Soraida Bethea [employer] WORKER [employer] Work Phone: [facility] Start: 01-12-2024 Bamboo flowsheet Soraida Bethea [employer] WORKER [employer]AL Work Phone: [facility] Start: 01-12-2024 Patient encounter procedure Soraida Bethea HOU[employer] WORKER [employer]AL Work Phone: [facility] Start: 01-05-2024 End: 01-05-2024 ambulatory Aziz Bakhous Other [employer] Other Start: 01-05-2024 Refill Elmira Daniel DO Work Phone: [facility] Comment on above: 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, without long-term current use of insulin, unspecified CKD stage ([facility]) Start: 01-05-2024 Telephone encounter Aziz Bakhous [facility] Start: 09-10-2023 End: 09-10-2023 ambulatory Aziz Bakhous Other [employer] Other Start: 09-10-2023 Telephone encounter Aziz Bakhous [facility] Start: 07-08-2023 End: 07-08-2023 ambulatory Aziz Bakhous Other [employer] Other Start: 07-08-2023 Office outpatient vi sit 25 minutes Aziz Bakhous [facility] [place] Start: 03-17-2023 End: 03-18-2023 ambulatory DHEERAJ WHITEHEAD Facility:[facility]1 Start: 03-12-2023 End: 03-13-2023 ambulatory DHEERAJ WHITEHEAD Facility:[facility] Start: 03-10-2023 End: 03-11-[address] ONEL WRIGHT Facility:[facility] Start: 02-05-2023 End: 02-06-[address] DOCTOR ALBRIGHT Facility:[facility]1 Start: 01-24-2023 End: 01-24-2023 Subsequent hospital visit by physician Jam Maya MD Work Phone: [facility] Comment on above: History of ovarian c ancer Start: 01-22-2023 End: 01-22-2023 ambulatory Aziz Bakroberts Other [employer] Other Start: 01-22-2023 Telephone encounter Aziz Bakhous [facility] Start: 01-21-2023 End: 01-21-2023 ambulatory Aziz Bakhous Other [employer] Other Start: 01-21-2023 Office outpatient vi sit 25 minutes Aziz Bakhous [facility] [place] Start: 01-13-2023 End: 01-13-[address] DOCTOR ALBRIGHT Facility:[facility] Start: 01-13-2023 End: 01-14-[address] DOCTOR ALBRIGHT Facility:[facility] Start: 11-08-2022 End: 11-08-[address] ZACHARY BOYLE Facility:[facility] Start: 09-17-2022 End: 09-17-2022 ambulatory Azjulio Bakroberts Other [employer] Other Start: 09-17-2022 Office outpatient vi sit 25 minutes Aziz Bakhous [facility] [place] Start: 09-10-2022 End: 09-11-[address] DOCTOR ALBRIGHT Facility:[facility] Start: 08-21-2022 End: 08-22-2022 ambulatory KATHARINA JOVEL Facility:[facility] Start: 07-10-2022 End: 07-10-2022 Subsequent hospital visit by physician Zachary Boyle Work Phone: [facility] Comment on above: 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 Start: 06-05-2022 End: 06-06-[address] ZACHARY BOYLE Facility:[facility]1 Start: 05-29-2022 End: 05-30-[address] ZACHARY BOYLE Facility:[facility] Start: 05-06-2022 End: 05-07-[address] ZACHARY BOYLE Facility:[facility] Start: 04-23-2022 End: 04-23-2022 ambulatory Albin [employer] Other [facility] [employer] Other Start: 04-23-2022 Office outpatient ne w 30 minutes Albin Englands [facility] Start: 03-27-2022 End: 03-27-2022 Subsequent hospital visit by physician Zachary Boyle Work Phone: [facility] Start: 09-26-2021 End: 09-27-2021 ambulatory ANABEL Juárez [facility] Start: 09-26-2021 End: 09-26-2021 Subsequent hospital visit by physician Zachary Boyle Work Phone: [facility] Comment on above: Borderline epithelia l neoplasm of ovary; Gross hematuria Start: 07-18-2021 End: 07-19-2021 ambulatory ANABEL L [facility] Start: 12-29-2018 End: 01-17-2024 Patient encounter procedure Elmiratran Dnaiel Work Phone: [facility] Procedures Date Procedure Procedure Detail Performing Clinician Start: 03-09-2025 Immunoassay tumor an tigen quantitative ca 125 Iman Bianca MONTENEGRO Work Phone: Start: 01-17-2025 Arthrocentesis aspir &/inj major jt/bursa w/o Rochelle T Rayne PAIZ Work Phone: Start: 01-24-2023 Immunoassay tumor an tigen quantitative ca 125 Fide Torres DO Work Phone: Start: 07-10-2022 Immunoassay tumor an tigen quantitative ca 125 Iman Chambers PA-C Work Phone: Start: 03-27-2022 Basic metabolic pane l calcium total Onel Wright MD Work Phone: Start: 09-26-2021 Urinalysis microscopic only Anabel Duncan MD Work Phone: Start: 09-26-2021 Urnls dip stick/tabl et rgnt auto w/o microscopy Anabel Duncan MD Work Phone: Start: 09-26-2021 Immunoassay tumor an tigen quantitative ca 125 Anabel Duncan MD Work Phone: Plan of Treatment Date Care Activity Detail Author Start: 01-13-2033 DTaP/Tdap/Td vaccine (3 - Td or Tdap) DTaP/Tdap/Td vaccine (3 - Td or Tdap) [facility] Start: 01-31-2026 Medicare Annual Wellness (AWV) Medicare Annual Wellness (AWV) [facility] Start: 08-01-2025 Influenza vaccination Influenza Vacc ine (#1) [facility] Start: 07-12-2025 Urine screening for protein Diabetes: Urine Protein Screening [facility] Start: 05-30-2025 Influenza vaccination Influenza Vacc ine (#1) [facility] Comment on above: Postponed from 08/01 (Supply/Drug Shortage) Start: 05-03-2025 Hemoglobin A1c measurement Diabetes: Hemoglobin A1C [facility] Start: 03-18-2025 End: 03-18-2025 Patient encounter procedure 03/18/2025 10:30 AM EDT Office Visit [facility] HARMONIC ANALYST Oncology [address] [place] [address] Iman Valenzuela PA-C [address] [address] [address] [place] [address] 6mfu [facility] HARMONIC ANALYST Oncology Comment on above: 6mfu Start: 01-31-2025 End: 01-31-2026 Hemoglobin A1c/Hemoglobin.total in Blood Hemoglobin A1c Lab Routine Type 2 diabetes mellitus with chronic kidney disease, without long-term current use of insulin, unspecified CKD stage ([facility]) Expected: 01/31/2025 (Approximate), Expires: 01/31/2026 [facility] Comment on above: Expected: 01/31/2025 (Approximate), Expires: 01/31/2026 Start: 01-31-2025 End: 01-31-2026 Lipid 1996 panel - Serum or Plasma Lipid panel Lab Routine Encounter for annual wellness exam in Medicare patient Mixed hyperlipidemia ([facility]) Expected: 01/31/2025 (Approximate), Expires: 01/31/2026 [facility] Work Phone: Comment on above: Expected: 01/31/2025 (Approximate), Expires: 01/31/2026 Start: 01-31-2025 End: 01-31-2026 TSH W/REFLEX TO FT4 TSH W/REFLEX TO FT4 Lab Routine Encounter for annual wellness exam in Medicare patient Expected: 01/31/2025 (Approximate), Expires: 01/31/2026 [facility] Comment on above: Expected: 01/31/2025 (Approximate), Expires: 01/31/2026 Start: 01-31-2025 End: 01-31-2025 Patient encounter procedure [facility] Comment on above: Arrived Start: 01-17-2025 End: 01-17-2025 Patient encounter procedure 01/17/2025 11:15 AM EST Office Visit [facility] [address] [place] [phone] Rochelle Oneil, CHENCHO [address] [place], [place] [id number] [facility] Start: 01-12-2025 Medicare Annual Wellness (AWV) Medicare Annual Wellness (AWV) [facility] Start: 01-03-2025 End: 01-03-2025 Patient encounter procedure [facility] Comment on above: Arrived Start: 12-01-2024 Annual Wellness Visi t (Medicare Advantage) Annual Wellness Visit (Medicare Advantage) [facility] Start: 08-01-2024 COVID-19 Vaccine ( season) COVID-19 Vaccine ( season) [facility] Start: 08-01-2024 Influenza vaccination Influenza Vacc ine (#1) [facility] Start: 03-17-2024 End: 03-17-2024 Patient encounter procedure 03/17/2024 1:00 PM EDT Office Visit [facility] [address] [place] [phone] [facility] Start: 01-12-2024 End: 01-12-2024 Patient encounter procedure 01/12/2024 11:00 AM EST Office Visit [facility] [address] [place] [phone] Soraida Bethea NP [address] [place], [place] [phone] Arrived [facility] Comment on above: Arrived Start: 11-06-2023 Urine screening for protein Diabetes: Urine Protein Screening [facility] Start: 05-08-2023 Hemoglobin A1c measurement Diabetes: Hemoglobin A1C [facility] Start: 01-31-2023 End: 01-31-2023 Patient encounter procedure 01/31/2023 Office Visit Gynecologic Oncology Jam Warren MD [address] [place] [address] [facility] HARMONIC ANALYST Oncology Start: 01-05-2023 Creatinine measurement Creatinine [facility] Start: 01-05-2023 Potassium [Moles/volume] in Serum or Plasma Potassium [facility] Start: 08-01-2022 Influ[facility] Start: 07-17-2022 End: 07-17-2022 Patient encounter procedure 07/17/2022 Office Visit Gynecologic Oncology Jam Warren MD [address] [place] [address] [facility] HARMONIC ANALYST Oncology Start: 07-01-2022 Influenza vaccination Flu vaccine (# 1) [facility] Start: 01-23-2022 End: 01-23-2022 Patient encounter procedure 01/23/2022 Office Visit Gynecologic Oncology Anabel Duncan MD [address] [place] [address] [phone] [facility] HARMONIC ANALYST Oncology Start: 01-02-2022 End: 01-02-2022 Patient encounter procedure 01/02/2022 Office Visit Gynecologic Oncology Anabel Duncan MD [address] [place] [address] [phone] [facility] HARMONIC ANALYST Oncology Start: 08-01-2021 Influenza vaccination Flu vaccine (# 1) [facility] [employer] Phone: Start: 06-12-2021 Annual Wellness Visi t (AWV) Annual Wellness Visit (AWV) [facility] Start: 09-01-2009 Pneumococcal 50+ yea rs Vaccine (2 of 2 - PCV) Pneumococcal 50+ years Vaccine (2 of 2 - PCV) [facility] Start: 09-01-2009 Pneumococcal Vaccine : 65+ Years (2 - PCV) Pneumococcal Vaccine: 65+ Years (2 - PCV) [facility] Start: 09-01-2009 Pneumococcal Vaccine : 65+ Years (2 of 2 - PCV) Pneumococcal Vaccine: 65+ Years (2 of 2 - PCV) [facility] Start: 2003 Pneumococcal 65+ yea rs Vaccine (1 of 1 - PPSV23) Pneumococcal 65+ years Vaccine (1 of 1 - PPSV23) [facility] [employer] Phone: Start: 1993 Screening for osteoporosis DEXA (modify frequency per FRAX score) [facility] Start: 1988 Shingles Vaccine (1 of 2) Shingles Vaccine (1 of 2) [facility] Start: 1957 DTaP/Tdap/Td vaccine (1 - Tdap) DTaP/Tdap/Td vaccine (1 - Tdap) [facility] Start: 07-21-1957 Urine screening for protein Diabetes: Urine Protein Screening [facility] Start: 1950 COVID-19 Vaccine (1) COVID-19 Vaccin e (1) [employer] Phone: Start: 1950 Depression Screen Depression Screen [facility] Start: 1948 Glaucoma screening Diabetes: R etinopathy Screening [facility] Start: 1948 Lipid panel [facility] Start: 1944 Pneumococcal 65+ yea rs Vaccine (1 - PCV) Pneumococcal 65+ years Vaccine (1 - PCV) [facility] Start: 1943 COVID-19 Vaccine (1) COVID-19 Vaccin e (1) [facility] [employer] Start: 1938 COVID-19 Vaccine (#1) COVID-19 Vacci ne (#1) [facility] [employer] Start: 1938 Annual Wellness Visi t (AWV) Annual Wellness Visit (AWV) [facility] Start: 1938 Creatinine measurement Creatinine mo nitoring [employer] Work Phone: Start: 1938 Medicare Annual Wellness (AWV) Medicare Annual Wellness (AWV) [facility] Start: 1938 Potassium monitoring Potassium monit oring [employer] Phone: Renal function 2000 panel - Serum or Plasma [facility] Immunizations Immunization Date Immunization Notes Care Provider Fa cility 01-10-2025 influenza, high dose seasonal, preservative-free Soraida Bethea HOUSE WORKER GENERAL Work Phone: [facility] 01-10-2025 RSV, recombinant, protein subunit RSVpreF, adjuvant reconstitu, 120mcg/0.5mL, PF (Arexvy) Soraida Bethea [employer]SE WORKER GENERAL Work Phone: [facility] 01-10-2025 influenza virus vaccine, unspecified formulation Soraida Bethea [employer]SE WORKER GENERAL Work Phone: [facility] 09-15-2023 Influenza, Seasonal, Quadrivalent, Adjuvanted Soraida Bethea [employer] WORKER [employer]AL Work Phone: [facility] 09-15-2023 influenza virus vaccine, unspecified formulation Elmira Stephanie DO Work Phone: [facility] 01-13-2023 diphtheria, tetanus toxoids and pertussis vaccine Elmira Stephanie DO Work Phone: [facility] 09-02-2022 Influenza, High-dose Seasonal, Quadrivalent, Preservative Free Elmira Stephanie DO Work Phone: [facility] 10-18-2021 Moderna SARS-CoV-2 Vaccination Elmira Stephanie DO Work Phone: [facility] Work Phone: 10-03-2021 Moderna SARS-CoV-2 Vaccination Soraida Lunak [employer] WORKER [employer]AL Work Phone: [facility] 05-11-2021 tetanus toxoid, redu lety diphtheria toxoid, and acellular pertussis vaccine, adsorbed Soraida Turciostrick HOU[employer] WORKER GENERAL Work Phone: [facility] 02-01-2021 Moderna SARS-CoV-2 Vaccination Elmira Stephanie DO Work Phone: [facility] 01-04-2021 Moderna SARS-CoV-2 Vaccination Elmira Stephanie DO Work Phone: [facility] 11-21-2020 Influenza, High-dose Seasonal, Quadrivalent, Preservative Free Soraida Turciostrick [employer] WORKER GENERAL Work Phone: [facility] 09-01-2008 pneumococcal polysaccharide vaccine, 23 valent Soraida Turciostrick HOUSE WORKER GENERAL Work Phone: [facility] Payers Date Payer Category Payer Medicare HUMAN MEDICARE ADVANTAGE [facility] MEDICARE [id number] 2021-Present [address] [address] [place] [address] [id number] 2021 Medicare (Managed Care) [facility] [id number] 2000 Medicare MEDICARE MEDICAR E PART A AND B [id number] 2000-Present [phone] [place] [address] [id number] 1959 Medicare [id number] 1938 Unknown [id number] [id number]. [id number] 1938 Unknown [id number] [id number]. 2.175 1938 Unknown [id number] [id number]. 2.593 1938 Unknown [id number] [id number]. 2.593 1938 Unknown [id number] [id number]. 2.593 1938 Unknown [id number] 2.16.840.1.429065.3.579. 2.593 1938 Unknown [id number] 2.16.840.1.239494.3.579. 2.593 1938 Unknown [id number] [id number]. 2.593 1938 Unknown [id number] 2.16.840.1.006513.3.579. 2.593 1938 Unknown [id number] [id number]. 2.593 1938 Unknown [id number] [id number]. 2.593 1938 Unknown [id number] 2.16.840.1.976136.3.579. 2.593 1938 Unknown [id number] 2.16.840.1.174276.3.579. 2.59 1938 Unknown [id number] 2.16840.1.106694.3.579. 2.593 1938 Unknown [id number] 2.840.1.099752.3.579. 2.593 1938 Unknown [id number] 2.16840.1.010469.3.579. 2.593 1938 Unknown [id number] 2.16840.1.999024.3.579. 2.125 1938 Unknown [id number] 2.16840.1.749516.3.579. 2.125 1938 Unknown [id number] 2.840.1.858427.3.579. 2.125 1938 Unknown [id number] 2.16.840.1.078202.3.579. 2.125 1938 Unknown [id number] 2.16.840.1.047816.3.579. 2.125 1938 Unknown [id number] 2.16.840.1.692392.3.579. 2.125 1938 Unknown [id number] 2.16.840.1.587753.3.579. 2.125 1938 Unknown [id number] 2.16.840.1.740298.3.579. 2.1259 1938 Unknown [id number] 2.16.840.1.050682.3.579. 2.9 1938 Unknown [id number] 2.16.840.1.973258.3.579. 2.1259 1938 Unknown [id number] 2.16.840.1.563994.3.579. 2.9 1938 Unknown [id number] 2.16.840.1.008740.3.579. 2.1259 1938 Unknown [id number] 2.16.840.1.465926.3.579. 2.1259 1938 Unknown [id number] 2.16.840.1.866438.3.579. 2.9 1938 Unknown [id number] 2.16.840.1.710576.3.579. 2.173 1938 Unknown [id number] 2.16.840.1.820631.3.579. 2.173 Social History Date Type Detail Facility Start: 09-26-2021 End: 04-20-2023 Tobacco smoking status [facility] Never smoker [facility]: Start: 09-26-2021 End: 04-20-2023 Tobacco use and exposure Never used [facility] [employer] Start: 1940 Sex Assigned At Not on file [facility]: Exposure to SARS-CoV-2 (event) Not sure [facility] Start: 09-08-2023 End: 01-31-2025 Sex Assigned At [facility] Other Start: 12-03-2023 End: 01-31-2025 Alcohol intake Current drinker of alcohol (finding) [facility] Start: 09-08-2023 End: 01-31-2025 History of Social function [facility] Start: 05-10-2023 Alcohol Comment caffeine intak e: none [facility] Start: 06-12-2021 End: 05-10-2025 Sex Female (finding) Michele [facility] Start: 01-04-2025 Tobacco smoking status NHIS Ex-smoker (finding) [facility] Start: 1940 Sex Assigned At Female [facility] NEGATED: Highlighted rowStart: DOUGLAS History of tobacco use Passive smoker [facility] Medical Equipment Procedure Code Equipment Code Equipment Origin al Text Equipment Identifier Dates Check fasting glucose once daily [id number] Start: 08-20-2023 Inject 1 Lancet under the skin in the morning. [id number] Start: 08-20-2023 Clinical Notes 04-23-2022 to 05-16-2025 Soraida Bethea, CHENCHO - 01/31/2025 10:30 AM Yola Oneil, CHENCHO - 01/17/2025 11:15 AM ESTTelephone Encounter - Rochelle Oneil, CHENCHO - 01/17/2025 8:57 AM Jamal Sims MA - 11/17/2024 3:30 PM EST Note Date & Type Note Facility 05-16-2025 Note [facility] Subjective Yesy Rodriguez is a 84 y.o. year old female patient being seen for 6 mo follow up with ECHO. Patient states she feels fine just tired. Patient Active Problem List Diagnosis Chronic diastolic [...] Acquired absence of ovaries, bilateral Aortic atherosclerosis Arm pain, anterior, right Bilateral hearing loss [...] extremity Well woman exam without gynecological exam Hyperkalemia Hypertensive nephropathy Hyperuricemia Type 2 diabetes mellitus with hyperglycemia, without long-term current use of insulin ([facility]) Vitamin D deficiency Family History Problem Relation Name Age of Onset Heart attack Mother Heart attack Brother Social History Tobacco Use Smoking status: Former Types: Cigarettes Passive exposure: Past Smokeless tobacco: Never Substance Use Topics Alcohol use: Yes Comment: occasional social Drug use: Never HPI Visit of 12/28/2021: Yesy is seen as a new patient. She is here to establish care and to proceed with work-up of her valvular heart disease and diastolic heart failure. She is an 81-year-old woman who moved from [place] in May 2021. She is known to [...] then discharged. She was evaluated at the [facility] cardiology service and she was planned [...] mildly reduced. ECG 01/16/2022: Atrial fibrillation, left an (more content not included)... [facility] 05-03-2025 Note Please let her know there were changes on her recent ECHO. We need to proceed with a follow-up ERIK to further assess her aortic valve. Thanks! [facility] 05-03-2025 Note RVSP has doubled sin ce her last ECHO 6 months ago. Was at 44 now is at 94. 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 She see's you on 05/16/25. Do you want me to order a ERIK, increase lasix, or just wait until you see her? Thanks! [facility] 01-31-2025 History of Present illness Narrative Images from the original note were not included. Yesy Rodriguez is a 84 y.o. female presents with chief complaint of Medicare Annual Wellness Visit Subsequent HPI: HPI Patient is present for an annual Medicare wellness. Over the past 2 weeks, how often have you been bothered by any of the following problems? Little interest or pleasure in doing things: Not at all Feeling down, depressed, or hopeless: Not at all Patient Health Questionnaire-2 Score: 0 Betancourt Fall Risk History of Falling, Immediate or Within 3 Months: No Secondary Diagnosis: No Ambulatory Aid: Walks without aid/bedrest/nurse assist Intravenous Therapy/Heparin Lock: No Gait/Transferring: Normal/bedrest/immobile Mental Status: Oriented to own ability Betancourt Fall Risk Score: 0 Health Risk Assessment Form Do you need help eating, bathing, using the toilet, dressing, or getting around your home?: No Can you prepare your own meals?: Yes Can you do your own housework without help?: Yes Can you shop for groceries or clothes without help?: Yes Do you exercise for about 20 minutes 3 or more days a week?: No How confident are you that you can control and manage most of your health problems?: Somewhat confident Can you mange your money, credit cards and accounts, pay bills and taxes?: No Vision Screening: Not done Hearing Screening: Not done Cognitive Screening Three Word Registration: Apple, Watch, [place] Clock Drawing: Normal Clock - 2 Three Word Recall: All 3 words correct - 3 Total Score (0-5 Points): 5 Pain Assessment Pain Score: 0 - No pain SUBJECTIVE: MEDICATIONS: Current Outpatient Medications Medication Instructions Alcohol Swabs (DropSafe Alcohol Prep) 70 % pads amLODIPine (NORVASC) 5 mg, Oral, Daily anastrozole (ARIMIDEX) 1 mg, Daily apixaban (ELIQUIS) 2.5 mg, 2 times daily atorvastatin (Lipitor) 10 MG tablet TAKE 1 TABLET EVERY DAY benazepril (LOTENSIN) 10 mg, Oral, Daily Blood Glucose Monitoring Suppl (True Metrix Meter) w/Device kit cholecalciferol (VITAMIN D3) 25 mcg, Daily docusate sodium (COLACE) 100 mg, Daily empagliflozin (JARDIANCE) 10 mg, Daily RT furosemide (LASIX) 40 mg, 2 times daily glucose blood (True Metrix Blood Glucose Test) test strip Check fasting glucose once daily latanoprost (Xalatan) 0.005 % ophthalmic solution latanoprost 0.005 % eye drops metoprolol succinate XL (Toprol-XL) 200 MG 24 hr tablet TAKE 1 TABLET EVERY DAY SITagliptin (JANUVIA) 50 mg, Oral, Daily TRUEplus Lancets 28G misc 1 Lancet , Subcutaneous, Daily I have reviewed and reconciled the history and medication list with the patient today. REVIEW OF SYMPTOMS: Review of Systems Constitutional: Negative for chills and fatigue. HENT: Negative for ear discharge, ear pain, rhinorrhea and sore throat. Eyes: Negative for pain and redness. Respiratory: Negative for cough and chest tightness. Cardiovascular: Negative for chest pain and palpitations. Gastrointestinal: Negative for abdominal distention and abdominal pain. Genitourinary: Negative for difficulty urinating and frequency. Musculoskeletal: Negative for arthralgias and gait problem. Skin: Negative. Neurological: Negative for dizziness and numbness. Endocrine: Negative. Allergic/Immunologic: Negative. OBJECTIVE: Visit Vitals Smoking Status Never Physical Exam Vitals reviewed. Constitutional: Appearance: Normal appearance. HENT: Head: Normocephalic. Right Ear: Hearing and tympanic membrane normal. Left Ear: Hearing and tympanic membrane normal. Nose: Nose normal. Right Turbinates: Not enlarged. Left Turbinates: Not enlarged. Right Sinus: No maxillary sinus tenderness or frontal sinus tenderness. Left Sinus: No maxillary sinus tenderness or frontal sinus tenderness. Mouth/Throat: Lips: Metaline. Mouth: Mucous membranes are moist. Pharynx: Oropharynx is clear. Uvula midline. Tonsils: No tonsillar exudate. Eyes: General: Lids are normal. Vision grossly intact. Gaze aligned appropriately. Extraocular Movements: Extraocular movements intact. Conjunctiva/sclera: Conjunctivae normal. Neck: Thyroid: No thyroid mass or thyromegaly. Vascular: No carotid bruit. Trachea: Trachea normal. Cardiovascular: Rate and Rhythm: Normal rate. Rhythm regularly irregular. Pulses: Normal pulses. Heart sounds: Normal heart sounds. Pulmonary: Effort: Pulmonary effort is normal. Breath sounds: Normal breath sounds and air entry. Abdominal: General: Abdomen is flat. Bowel sounds are normal. Palpations: Abdomen is soft. Musculoskeletal: General: Normal range of motion. Cervical back: Full passive range of motion without pain, normal range of motion and neck supple. Lymphadenopathy: Cervical: No cervical adenopathy. Skin: General: Skin is warm and dry. Capillary Refill: Capillary refill takes less than 2 seconds. Neurological: General: No focal deficit present. Mental Status: She is alert and oriented to person, place, and time. Sensory: Sensation is intact. Motor: Motor function is intact. Coordination: Coordination is intact. Psychiatric: Attention and Perception: Attention and perception normal. Mood and Affect: Mood and affect normal. Speech: Speech normal. Behavior: Behavior is cooperative. Thought Content: Thought content normal. ASSESSMENT AND PLAN: Assessment/Plan Diagnoses and all orders for this visit: Encounter for annual wellness exam in Medicare patient - Lipid panel; Future - TSH W/REFLEX TO FT4; Future Wellness performed at [facility] today. Height, weight, BMI, problem list, and immunizations records reviewed. Dental care discussed with patient. Encouraged annual vision screenings and semi-annual dental care. Chronic heart failure, unspecified heart failure type (CMS/HCC)-stable continue on current medications. Follows with cardio Essential hypertension (CMS/HCC)-stable continue on current medications. Mixed hyperlipidemia (CMS/HCC)-stable continue on current medications - Lipid panel; Future Permanent atrial fibrillation (CMS/HCC)-stable continue on current medicaitons. Follows with cardio Pulmonary hypertension (CMS/HCC) Stage 3b chronic kidney disease (HCC) (CMS/HCC)-stable continue on current medications Type 2 diabetes mellitus with chronic kidney disease, without long-term current use of insulin, unspecified CKD stage (CMS/HCC)-stable continune on current medications - Hemoglobin A1c; Future - SITagliptin (Januvia) 50 MG tablet; Take 1 tablet (50 mg) by mouth Daily Longstanding persistent atrial fibrillation (CMS/HCC) Acute diastolic heart failure (CMS/HCC)-stable Chronic diastolic heart failure (CMS/HCC)-stable Malignant neoplasm of ovary, unspecified laterality (CMS/HCC)-stable Type 2 diabetes mellitus without complication, without long-term current use of insulin ([facility]/HCC) Aortic atherosclerosis ([facility]/HCC) Chronic obstructive pulmonary disease, unspecified COPD type ([facility]/HCC) Type 2 diabetes mellitus with diabetic peripheral angiopathy without gangrene, without long-term current use of insulin ([facility]/HCC) Varicose veins of right lower extremity, unspecified whether complicated Screening for deficiency anemia Mitral valve stenosis and regurgitation-stable 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 Continue to use debrox for cerumen in bilateral ears. Memory impairment Mixed conductive and sensorineural hearing loss of right ear with restricted hearing of left ear documented in this encounter [facility] 01-17-2025 History of Present illness Narrative Associated Order(s): L Inj/Asp: L subacromial bursa Post-Procedure Diagnose(s): Impingement syndrome of left shoulder Images from the original note were not included. HISTORY OF PRESENT ILLNESS: EST PT Yesy Rodriguez is an 84 y.o. @ female. (EST PT) - RECHECK (L) SHOULDER ; S/P CORTISONE INJ 07/05/24 WITH GOOD RELIEF FOR NEARLY 3 MONTHS. SHE WOULD LIKE TO DISCUSS INJ TODAY XRAY CHANGE 04/05/24 DEPO INJECTION 07/05/24, 04/05/24, 10/23/22, 01/27/23, 06/02/23, 09/08/23, 04/05/24, 07/05/24 MRI 10/14/22 IN EXA PAIN DIFFUSE IN SHOULDER SINCE 08/2022 (2 YRS, 5 MONTHS). SHE NOTES INCREASED PAIN WITH HOUSE HOLD CHORES. DESCRIBES ACHING. TAKING TYL. USING ICE AND HEAT. DENIES N/T. LIMITED ROM. DENIES POPPING/GRINDING. SHE DOESN'T SLEEP WELL BUT NOT BECAUSE OF SHOULDER. GEENA : AWKWARDLY TWISTED HER ARM WHILE ADJUSTING A LIGHT (08/2022) & SHOULDER PAIN SINCE ON ELIQUIS. ALLERGIES: No Known Allergies HOME MEDICATIONS: Current Outpatient Medications Medication Instructions Alcohol Swabs (DropSafe Alcohol Prep) 70 % pads amLODIPine (NORVASC) 5 mg, Oral, Daily anastrozole (ARIMIDEX) 1 mg, Daily apixaban (ELIQUIS) 2.5 mg, 2 times daily atorvastatin (Lipitor) 10 MG tablet TAKE 1 TABLET EVERY DAY benazepril (LOTENSIN) 10 mg, Oral, Daily Blood Glucose Monitoring Suppl (True Metrix Meter) w/Device kit cholecalciferol (VITAMIN D3) 25 mcg, Daily docusate sodium (COLACE) 100 mg, Daily empagliflozin (JARDIANCE) 10 mg, Daily RT furosemide (LASIX) 40 mg, 2 times daily glucose blood (True Metrix Blood Glucose Test) test strip Check fasting glucose once daily latanoprost (Xalatan) 0.005 % ophthalmic solution latanoprost 0.005 % eye drops metoprolol succinate XL (Toprol-XL) 200 MG 24 hr tablet TAKE 1 TABLET EVERY DAY SITagliptin (JANUVIA) 50 mg, Oral, Daily TRUEplus Lancets 28G misc 1 Lancet , Subcutaneous, Daily PHYSICAL EXAM: Shoulder Musculoskeletal Exam Inspection Left Left shoulder inspection is normal. Ecchymosis: none Peripheral edema: none Atrophy: none Masses: none Palpation Left Crepitus: no crepitus Increased warmth: none Tenderness: present Anterior shoulder: moderate AC joint: moderate Lateral arm: moderate Range of Motion Right Right shoulder active abduction: + pain passing 90 degrees. Left Active ROM: pain. Passive ROM: pain. Active forward elevation: 110. Internal rotation: sacrum. Neurovascular Left Radial pulse: normal and 2+ Capillary refill: <3 sec Axillary nerve sensory distribution: normal Scapula Left Left shoulder scapula is normal. Position: normal Winging: none Special Tests Left Rotator Cuff Signs Neer's test: positive Painful arc test: positive General Constitutional: appears stated age Neurological: alert and oriented x3 Vitals: There is no height or weight on file to calculate BMI. Tobacco Use: Low Risk (01/03/2025) Patient History Smoking Tobacco Use: Never Smokeless Tobacco Use: Never Passive Exposure: Never Alcohol Use: Not At Risk (11/03/2020) [facility] Frequency of Alcohol Consumption: Monthly or less Average Number of Drinks: 1 or 2 Frequency of Binge Drinking: Never IMAGING: L Inj/Asp: L subacromial bursa on 01/17/2025 8:10 PM Indications: pain Details: 20 G needle, posterior approach Medications: 40 mg methylPREDNISolone acetate 40 MG/ML Outcome: tolerated well, no immediate complications Site cleaned with isopropyl alcohol Procedure, treatment alternatives, risks and benefits explained, specific risks discussed. Consent was given by the patient. Orders Placed This Encounter Procedures L Inj/Asp This order was created via procedure documentation ASSESSMENT: ICD-10-CM 1. Impingement syndrome of left shoulder M75.42 2. Arthritis of left acromioclavicular joint M19.012 3. Chronic left shoulder pain M25.512 G89.29 PLAN: I reviewed xray findings with the patient and discussed treatment options, answered questions. I discussed with the patient the option of an injection. I advised the patient of risks associated with an injection including a reaction to medication, infection, failure to improve and possible worsening. The patient demonstrated understanding. Patient requesting injection. Skin Cleansed with alcohol swab. Utilizing aseptic technique patient given 40mg Depomedrol was injected. Patient tolerated this well. Neurovasc intact s/p injection. Post injection care instructions discussed. Questions answered in laymen terms at the bedside. The diagnosis, home exercise plan and any ongoing restrictions/ recommendations reviewed. If unable to be reached in office, I recommend evaluation at nearest Emergency Room if any symptoms worsened or new symptoms develop for requiring urgent evaluation. 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 She wanted to make sure it's still ok to come in today for an injection. documented in this encounter [facility] 01-17-2025 Telephone encounter Note Patient's niece Lizabeth called stating she had RSV/Flu last week. She wanted to make sure it's still ok to come in today for an injection. [facility] 01-03-2025 History of Present illness Narrative Images from the original note were not included. Yesy Rodriguez is a 84 y.o. female presents with chief complaint of Earache HPI: HPI Patient is present with concerns of earwax impaction. Patient states she was fitted for hearing aids last month and the provider noted that she had a lot of earwax. Patient states her hearing aids are not staying in well either. SUBJECTIVE: MEDICATIONS: Current Outpatient Medications Medication Instructions Alcohol Swabs (DropSafe Alcohol Prep) 70 % pads amLODIPine (NORVASC) 5 mg, Oral, Daily anastrozole (ARIMIDEX) 1 mg, Oral, Daily apixaban (ELIQUIS) 2.5 mg, Oral, 2 times daily atorvastatin (Lipitor) 10 MG tablet TAKE 1 TABLET EVERY DAY benazepril (LOTENSIN) 10 mg, Oral, Daily Blood Glucose Monitoring Suppl (True Metrix Meter) w/Device kit cholecalciferol (VITAMIN D3) 25 mcg, Oral, Daily docusate sodium (COLACE) 100 mg, Oral, Daily empagliflozin (JARDIANCE) 10 mg, Oral, Daily RT furosemide (LASIX) 40 mg, Oral, 2 times daily, Patient takes 40mg in AM and 20mg PM glucose blood (True Metrix Blood Glucose Test) test strip Check fasting glucose once daily latanoprost (Xalatan) 0.005 % ophthalmic solution latanoprost 0.005 % eye drops metoprolol succinate XL (Toprol-XL) 200 MG 24 hr tablet TAKE 1 TABLET EVERY DAY pioglitazone (ACTOS) 30 mg, Oral, Daily SITagliptin (JANUVIA) 50 mg, Oral, Daily spironolactone (Aldactone) 25 MG tablet Oral, Daily TRUEplus Lancets 28G misc 1 Lancet , Subcutaneous, Daily I have reviewed and reconciled the history and medication list with the patient today. REVIEW OF SYMPTOMS: Review of Systems Constitutional: Negative for chills and fatigue. HENT: Negative for ear discharge, ear pain, rhinorrhea and sore throat. Eyes: Negative for pain and redness. Respiratory: Negative for cough and chest tightness. Cardiovascular: Negative for chest pain and palpitations. Gastrointestinal: Negative for abdominal distention and abdominal pain. Genitourinary: Negative for difficulty urinating and frequency. Musculoskeletal: Negative for arthralgias and gait problem. Skin: Negative. Neurological: Negative for dizziness and numbness. Endocrine: Negative. Allergic/Immunologic: Negative. OBJECTIVE: Visit Vitals Smoking Status Never Physical Exam Vitals reviewed. HENT: Right Ear: Tympanic membrane is injected. Left Ear: Tympanic membrane is injected. Cardiovascular: Rate and Rhythm: Normal rate and regular rhythm. Pulses: Normal pulses. Heart sounds: Normal heart sounds. Pulmonary: Effort: Pulmonary effort is normal. Breath sounds: Normal breath sounds. Abdominal: General: Abdomen is flat. Bowel sounds are normal. Palpations: Abdomen is soft. Musculoskeletal: General: Normal range of motion. Skin: General: Skin is warm and dry. Neurological: General: No focal deficit present. Mental Status: She is oriented to person, place, and time. ASSESSMENT AND PLAN: Assessment/Plan Diagnoses and all orders for this visit: Essential hypertension (CMS/HCC)-stable continue on current medications Cerumen debris on tympanic membrane of both ears- documented in this encounter [facility] 11-17-2024 History of Present illness Narrative Patient was in today because her hearing aid is not working. I reviewed with patient and her niece how to change the filter in the hearing aid. Listening check was good after changing. Patient has an adequate supply as she has never changed it. Patient does have wax present in the ear canal. She was encouraged to see her PCP to see if they can remove the wax. Patient will follow up as needed. Cosigned by JANNA Jim at 11/18/2024 3:48 PM EST documented in this encounter [facility] 11-10-2024 Note Cardiovascular Medic [facility] SUBJECTIVE Chief Complaint Patient presents with Valve Disorder Coronary Artery Disease Atrial Fibrillation Yesy Rodriguez is a 84 y.o. female here for follow-up. Her niece Lizabeth accompanied her today. HPI PMHx: HFpEF, valvular heart disease, pulm HTN, paroxysmal a.fib, HTN 11/10/2024 She has been feeling well. She has mild leg swelling, this is stable. Denies c/o CP, dyspnea, orthopnea, PND, dizziness/LH, palpitations, syncope. -------- Last HPI per Dr. Wright: Visit of 12/28/2021: Yesy is seen as a new patient. She is here to establish care and to proceed with work-up of her valvular heart disease and diastolic heart failure. She is an 81-year-old woman who moved from [place] in May 2021. She is known to [...] then discharged. She was evaluated at the [facility] cardiology service and she was planned [...] 3. Moderately elevated right-sided filling pressures. 4. [id number] elevation of the left-sided filling pressures. 5. [...] no significant shortness of breath. No palpitations Visit of 11/19/2023: She is seen in follow-up. During most recent visit on 09/10/2023 with us Farxiga 10 mg daily was added. Today she reports that she has been doing reasonably well. No significant chest pain except occasional twinges. She says that her leg swelling is improved. She has shortness of breath on exertion. NYHA class II-III. No palpitations. No syncope. Visit of 05/27/2024: She is seen in follow-up. She reports that she has been doing reasonably well from (more content not included)... [facility] 11-10-2024 Note Patient here for 6 m o follow up valve disorder, chronic diastolic heart failure, and CAD. Had routine echo last week. She denies chest pain, SOB, palpitations, lightheadedness/syncope, and bleeding on Eliquis. Her niece states the only thing she c/o is fatigue. Review of Systems Constitutional: Positive for malaise/fatigue. Musculoskeletal: Positive for back pain and neck pain. All other systems reviewed and are negative. [facility] 05-27-2024 Note [facility] Subjective Yesy Rodriguez is a [...] is an 81-year-old woman who moved from [place] in May 2021. She is known to [...] then discharged. She was evaluated at the [facility] cardiology service and she was planned [...] 01/16/2022: Atrial fibrillat (more content not included)... [facility] 01-05-2024 Evaluation note Encounter Date Diagnosis Assessment Notes Jan, Primary hypertension (ICD-10 - I10) [employer] Other 08-08-2023 Evaluation note* Encounter Date Diagnosis Assessment Notes [...] and she follows with cardiology clinic in [place] Jul, Diabetes type 2, no ocular involvement [...] - R31.9) follows with urology clinic in [facility] [employer] Other 02-22-2023 Evaluation note* Encounter Date Diagnosis Assessment Notes Treatment Notes Treatment Clinical Notes Jan, Hyperkalemia (ICD-10 - E87.5) [facility] [employer] Other 02-21-2023 Evaluation note* Encounter Date Diagnosis [...] and she follows with cardiology clinic in [place] Jan, Diabetes type 2, no ocular involvement [...] handout of high K food at avoid. [employer] Other 10-18-2022 Evaluation note* Encounter Date Diagnosis [...] and she follows with cardiology clinic in [place] Aug, Diabetes type 2, no ocular involvement [...] I will continue to monitor uric acid. 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 Patient said her diabetes well controlled. 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 documented in this encounter [employer] Phone: [email or web address] note* Diagnosis History of ovarian cancer Personal history of malignant neoplasm of ovary documented in this encounter [employer] Phone: [email or web address] noteNo InformationNort [employer] Other Evaluation note* Diagnosis Type 2 diabetes mellitus with chronic kidney disease, without long-term current use of insulin, unspecified CKD stage ([facility]/HCC) documented [facility]* Diagnosis Primary hypertension ([facility]/HCC) Unspecified essential hypertension documented in this encounter [facility]* Diagnosis Mixed hyperlipidemia (CMS/HCC) Mixed hyperlipidemia documented in this encounter [facility]* Diagnosis Mixed conductive and sensorineural hearing loss of right ear with restricted hearing of left ear- Primary documented in this encounter [facility]* Diagnosis Type 2 diabetes mellitus with chronic kidney disease, without long-term current use of insulin, unspecified CKD stage (CMS/HCC) documented in this encounter [facility]* Diagnosis Essential hypertension (CMS/HCC)- Primary Unspecified essential hypertension Cerumen debris on tympanic membrane of both ears documented in this encounter [facility]* Diagnosis Impingement syndrome of left shoulder- Primary 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 Pain in joint, shoulder region documented in this encounter [facility]* Diagnosis Encounter for annual wellness exam in Medicare patient- Primary Chronic heart failure, unspecified heart failure type ([facility]) Essential hypertension ([facility]/HCC) Unspecified essential hypertension Mixed hyperlipidemia (CMS/HCC) Mixed hyperlipidemia Permanent atrial fibrillation (CMS/HCC) Atrial fibrillation Pulmonary hypertension (CMS/HCC) 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 (HCC) ([facility]) Type 2 diabetes mellitus with chronic kidney disease, without long-term current use of insulin, unspecified CKD stage ([facility]) Longstanding persistent atrial fibrillation ([facility]) Acute diastolic heart failure ([facility]) Acute diastolic heart failure Chronic diastolic heart failure ([facility]) Chronic diastolic heart failure Malignant neoplasm of ovary, unspecified laterality ([facility]) Type 2 diabetes mellitus without complication, without long-term current use of insulin ([facility]) Aortic atherosclerosis ([facility]) Atherosclerosis of aorta Chronic obstructive pulmonary disease, unspecified COPD type ([facility]) Type 2 diabetes mellitus with diabetic peripheral angiopathy without gangrene, without long-term current use of insulin ([facility]) Varicose veins of right lower extremity, unspecified whether complicated Screening for deficiency anemia Screening for other and unspecified deficiency anemia Mitral valve stenosis and regurgitation 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, 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 Bilateral hearing loss, unspecified hearing loss type Memory impairment Memory loss Mixed conductive and sensorineural hearing loss of right ear with restricted hearing of left ear documented in this encounter [facility]* 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 documented in this encounter [facility]* Diagnosis Onset Date Resolution Status Admit Date Chronic congestive heart failure acu te May 10, 2025 11:28am Hyperkalemia acute May 10, 11:28am Hypertensive nephropathy acute May 10, 2025 11:28am Hyperuricemia acute May 10, 2025 11:28am Stage 3b chronic kidney disease acut e May 10, 2025 11:28am Type 2 diabetes mellitus acute May 10, 2025 11:28am Vitamin D deficiency acute May 10, 2025 11:28am [facility] Work Phone: Evaluation note* Diagnosis Mixed hyperlipidemia Mixed hyperlipidemia documented in this encounter [facility] [...] REMOVAL OF OVARIES Hospitalization History SEE ABOVE [employer] Other Summary Purpose Family History Relationship Condition Age at Onset Recorded Date/T westley brother Unknown Heart disease Unknown Malignant neoplasm Unknown father Unknown History of stroke Unknown family member Unknown mother Heart disease Unknown Unknown Advance Directives Advance Directive Response Recorded Date/ Time Advance Directives No January 02, 2022 3:50pm Chief Complaint and Reason for Visit Chief Complaint Admit Date RENAL 4 MONTH F/U May 10, 2025 11:2 8am Reason for Visit Admit Date Chronic congestive heart failure May 102024 11:28am Hyperkalemia May 10, 2025 11:2 8am Hypertensive nephropathy May 10, 2025 11:28am Hyperuricemia May 10, 2025 11:2 8am Stage 3b chronic kidney disease May 11:28am Type 2 diabetes mellitus May 10, 2025 11:28am Vitamin D deficiency May 10, 2025 11: 28am Additional Source Comments INFORMATION SOURCE (unrecogn ized section and content) DATE CREATED AUTHOR 09/27/2021 [facility] DATE CREATED AUTHOR AUTHOR'S ORGANIZ ATION 01/22/2022 [facility] DATE CREATED AUTHOR AUTHOR'S ORGANIZ ATION 02/18/2022 [facility] DATE CREATED AUTHOR AUTHOR'S ORGANIZ ATION 06/11/2022 [facility] DATE CREATED AUTHOR AUTHOR'S ORGANIZ ATION 10/14/2022 [facility] dical Specialist DATE CREATED AUTHOR AUTHOR'S ORGANIZ ATION 03/20/2023 [facility] DATE CREATED AUTHOR AUTHOR'S ORGANIZ ATION 02/01/2025 [facility] dical Specialists EPIC DATE CREATED AUTHOR AUTHOR'S ORGANIZ ATION 03/11/2025 [facility] DATE CREATED AUTHOR AUTHOR'S ORGANIZ ATION 05/21/2025 [facility] Care Teams (unrecognized sec tion and content) Pharmacologist Relationship Specialty Start Date End Date Zachary Boyle [address] [place] [id number] PCP - General Family Medicine 09/26/21 Pharmacologist Relationship Specialty [place] [address] [place] [address] PCP - General Gynecological Oncology 07/17/22 Pharmacologist Relationship Specialty Start Date End Date Elmira Daniel DO [address] [place] [address] PCP - [employer] 05/31/21 Elmira Daniel DO [address] [place] [address] PCP - General Family Medicine 04/09/23 Pharmacologist Relationship Specialty Start Date End Date Elmira Daniel DO [address] [place] [address] PCP - [employer] 05/31/21 Lexy Mei MD [address] [place] [address] PCP - General Family Medicine 01/12/24 Soraida Bethea NP [address] [place] [address] Nurse Practitioner Family Medicine 01/12/24 Pharmacologist Relationship Specialty Start Date End Date Elmira Daniel AidanDO [address] [place] [address] PCP - [employer] 05/31/21 Lexy Mei MD [address] [place] [address] PCP - General Family Medicine 01/12/24 Soraida Bethea NP [address] [place] [address] Nurse Practitioner Family Medicine 01/12/24 Pharmacologist Relationship Specialty Start Date End Date Elmira Daniel DO [address] [place] [address] PCP - [employer] 05/31/21 Lexy Mei MD [address] [place] [address] PCP - General Family Medicine 01/12/24 Soraida Bethea NP [address] [place] [address] Nurse Practitioner Family Medicine 01/12/24 Pharmacologist Relationship Specialty Start Date End Date Elmira Daniel DO [address] [place] [address] PCP - [employer] 05/31/21 Lexy Mei MD [address] [place] [address] PCP - General Family Medicine 01/12/24 Soraida Bethea NP [address] [place] [address] Nurse Practitioner Family Medicine 01/12/24 Pharmacologist Relationship Specialty Start Date End Date Elmira Daniel AidanDO [address] [place] [address] PCP - [employer] 05/31/21 Lexy Mei MD [address] [place] [address] PCP - General Family Medicine 01/12/24 Soraida Bethea NP [address] [place] [address] Nurse Practitioner Family Medicine 01/12/24 Pharmacologist Relationship Specialty Start Date End Date Elmira Daniel DO [address] [place] [address] PCP - [employer] 05/31/21 Lexy Mei MD [address] [place] [address] PCP - General Family Medicine 01/12/24 Soraida Bethea NP [address] [place] [address] Nurse Practitioner Family Medicine 01/12/24 Pharmacologist Relationship Specialty Start Date End Date Elmira Daniel DO [address] [place] [address] PCP - [employer] 05/31/21 Lexy Mei MD [address] [place] [address] PCP - General Family Medicine 01/12/24 Soraida Bethea NP [address] [place] [address] Nurse Practitioner Family Medicine 01/12/24 Pharmacologist Relationship Specialty Start Date End Date Elmira Daniel DO [address] [place] [address] PCP - [employer] 05/31/21 Lexy Mei MD [address] [place] [address] PCP - General Family Medicine 01/12/24 Soraida Bethea NP [address] [place] [address] Nurse Practitioner Family [facility] 01/12/24 Pharmacologist Relationship Specialty Start Date End Date Elmira Daniel DO [address] [place] [address] PCP - General 02/28/23 Team Status: Active Member Role Status Dates Soraida Bethea NP-C Primary Care Provider Activ e Team Status: Active Member Role Status Dates Soraida Bethea NP-C Primary Care Provider Activ e Start: May 02, 2025 Albin Bonner MD Attending Provider Active Star t: May 02, 2025 Team Status: Inactive Member Role Status Dates Soraida Bethea NP-C Primary Care Provider Activ e Start: May 10, 2025 End: May 10, 2025 Albin Bonner MD Attending Provider Active Star t: May 10, 2025 End: May 10, 2025 Pharmacologist Relationship Specialty Start Date End Date Elmira Daniel DO [address] [id number] PCP - [employer] 05/31/21 Lexy Mei MD [address] [facility] [place] [address] PCP - General Family Medicine 01/12/24 Soraida Bethea NP [address] [facility] [place], [place] [id number] Nurse Practitioner Family Medicine 01/12/24 REASON FOR VISIT (unrecogniz ed section and content) Reason Comments Med Refill Reason Comments Earache Reason Onset Date Comments Injection 01/17/2025 Reason Comments Pain Reason Comments Medicare Annual Wellness Visit Subsequen t Goals (unrecognized section and content) Goals may be documented in a n alternate section FOR RECORDS PERTAINING TO PATIENTS WHO ARE [...] BE BASED ON THE PRIMARY CLINICAL RECORDS. [facility] [employer]. provides no warranty or guarantee of the accuracy or completeness of information in this document.
[2025-07-28 09:20] LABS: Hematocrit 42.3 % (36.0-48.0); Hemoglobin 14.1 g/dL (12.0-16.0); Immature Granulocytes Abs Auto 0.01 10^3/uL (0.00-0.03); Immature Granulocytes Pct Auto 0.1 % (0.0-0.5); Lymphocytes Absolute Auto 1.0 10^3/uL (1.2-3.8); Mean Corpuscular HGB Conc 33.3 g/dL (29.9-35.2); Mean Corpuscular Hemoglobin 31.6 pg (26.7-34.0); Mean Corpuscular Volume 94.8 fL (81.0-99.0); Platelet Count 260 10^3/uL (150-450); Red Blood Count 4.46 10^6/uL (4.20-5.40); White Blood Count 9.2 10^3/uL (4.0-11.0)
[2025-07-28 09:34] LABS: INR 1.11; Prothrombin Time 11.6 sec (9.0-11.6)
[2025-07-28 09:50] LABS: Alanine Aminotransferase 29 U/L (14-59); Albumin Globulin Ratio 1.0; Albumin Level 4.4 g/dL (3.4-5.0); Alkaline Phosphatase 107 U/L (46-116); Anion Gap 15.1; Aspartate Amino Transferase 27 U/L (15-37); Blood Urea Nitrogen 43.0 mg/dL (7.0-18.0); Calcium 9.4 mg/dL (8.5-10.1); Carbon Dioxide 26.7 mmol/L (21.0-32.0); Chloride 103 mmol/L (98-107); Estimated GFR (African America 36 (>=60 mL/min/1.73m^2); Estimated GFR (Non-African Ame 29 (>=60 mL/min/1.73m^2); Globulin 4.3 g/dL; Glucose 134 mg/dL (74-106); Potassium 3.8 mmol/L (3.5-5.1); Sodium 141 mmol/L (136-145); Total Protein 8.7 g/dL (6.4-8.2)
--- NOTE | 2025-07-28 11:01 | ED_ITS ---
HPI - Chest Pain General Chief Complaint: Chest Pain Stated Complaint: CHEST PAIN Time Seen by Provider: 07/28/25 08:59 Source: patient and family Mode of arrival: ambulance Limitations: no limitations History of Present Illness HPI narrative: The patient is 85 years old female with history of A-fib as well as congestive heart failure with a preparation according to the daughter at the bedside for aortic valve procedure to be done by cardiology due to severe stenosis. Patient is coming to the ER after she woke up at 3 AM today with chest pain retrosternal nonradiating associated with no symptoms of nausea dizziness or any sweating, the patient mentioned that the pain continued for few minutes and then disappeared by the time she came to the ER she did not have any pain anymore There was no exertion with that pain there was no associated with taking a deep breath or movement The patient was told by her hydrogen plant operator to present to the ER in case of any chest pain or difficulty breathing awaiting the echo to be done for her heart on August 09 Related Data Home Medications ?Medication ?Instructions ?Recorded ?Confirmed amlodipine 5 mg tablet mg 07/28/25 anastrozole 1 mg tablet mg 07/28/25 apixaban 2.5 mg tablet (Eliquis) mg 07/28/25 atorvastatin 10 mg tablet mg 07/28/25 benazepril 10 mg tablet mg 07/28/25 calcium 600 mg (as tab PO 07/28/25 carbonate)-vitamin D3 10 mcg (400 unit) tablet empagliflozin 10 mg tablet mg 07/28/25 (Jardiance) furosemide 40 mg tablet mg 07/28/25 latanoprost 0.005 % eye drops drp ophthalmic (eye) metoprolol succinate 200 mg mg PO 07/28/25 tablet,extended release 24 hr sitagliptin phosphate 50 mg tablet mg 07/28/25 (Januvia) Previous Rx's ?Medication ?Instructions ?Recorded ranolazine 500 mg tablet,extended 500 mg PO BID #20 ta bs 07/28/25 release,12 hr Allergies Allergy/AdvReac Type Severity Reaction Status Date / Time No Known Drug Allergies Allergy Verified 07/28/25 09:19 Review of Systems ROS Status of ROS 10 or more systems reviewed and unremark able except as noted in history and below PFSH PFSH Social History Little interest or pleasure in doing things: not at all Feeling down, depressed, or hopeless: not at all Exam Narrative Exam Narrative: Nurses notes and vital signs reviewed and patient is not hypoxic. General: Well-appearing and in no apparent distress. Skin: Warm, dry, no pallor noted. No rash. Head: Normocephalic, atraumatic. Neck: Supple, non-tender. Cardiovascular: Regular Rate and Rhythm, systolic murmur heard in the right upper sternal area Respiratory: No accessory muscle use or respiratory distress. Lungs are clear to auscultation, no wheezing, rales or rhonchi Chest Wall: no tenderness Back: No midline thoracic or lumbar vertebral tenderness. No CVA tenderness Musculoskeletal: normal ROM, no calf or popliteal tenderness, no lower extrem ity edema/swelling GI: Abdomen is soft, non-distended. Normal bowel sounds. No masses appreciated. No tenderness to palpation. No rebound, guarding, or rigidity noted. Neurological: A&O x4. No cranial nerve dysfunction observed. No truncal ataxia. Moves all extremities. Sensation intact. Psychiatric: Cooperative and interactive. Normal mood and affect. Constitutional Vital Signs, click to edit/add: Last Vital Signs Temp 98.2 F 07/28/25 09:04 Pulse 64 07/28/25 12:00 Resp 15 07/28/25 11:40 BP 151/74 H 07/28/25 12:00 Pulse Ox 97 07/28/25 12:00 O2 Del Method Room Air 07/28/25 09:04 Course Vital Signs Vital signs: Vital Signs Temperature 98.2 F 07/28/25 09:04 Pulse Rate 69 07/28/25 09:04 Respiratory Rate 20 07/28/25 09:04 Blood Pressure 156/61 H 07/28/25 09:04 Pulse Oximetry 96 07/28/25 09:04 Oxygen Delivery Method Room Air 07/28/25 09:04 Temperature 98.2 F 07/28/25 09:04 Pulse Rate 64 07/28/25 12:00 Respiratory Rate 15 07/28/25 11:40 Blood Pressure 151/74 H 07/28/25 12:00 Pulse Oximetry 97 07/28/25 12:00 Oxygen Delivery Method Room Air 07/28/25 09:04 MDM - Chest Pain MDM Narrative Medical decision making narrative: EKG showing A-fib with a rate of [address] elevation or depression The patient CBC and chemistry showed no acute pathology Chest x-ray was within normal The patient did not have any pain while she was in the ER and she had a second troponin that was negative as well The patient case was discussed with in cardiology service and he reviewed her [facility] medical records and he requested that the patient to be started on Ranexa 500 mg po bid and follow-up with the Dr. Wright as out pt The patient still not having any pain discharge home after I explained to her the plan with instruction that she will come back to the ER in case of new symptoms or increasing pain The patient is to follow up with primary care physician in next 2-3 days or to return to the emergency department should any of the signs or symptoms worsen or new symptoms develop. The patient agrees with the following Diagnosis and Treatment plan and the patient will be discharged home. Lab Data Labs: Lab Results 07/28/25 07/28/25 Range/Units 09:13 10:45 WBC 9.2 (4.0-11.0) 10^3/uL RBC 4.46 (4.20-5.40) 10^6/uL Hgb 14.1 (12.0-16.0) g/dL Hct 42.3 (36.0-48.0) % MCV 94.8 (81.0-99.0) fL MCH 31.6 (26.7-34.0) pg MCHC 33.3 (29.9-35.2) g/dL RDW 13.3 (11.0-15.0) % Plt Count 260 (150-450) 10^3/uL MPV 10.8 (9.5-13.5) fL Neut % (Auto) 74.5 (43.0-75.0) % Lymph % (Auto) 11.1 L (20.5-60.0) % Armstrong % (Auto) 9.7 (1.7-12.0) % Eos % (Auto) 3.7 (0.9-7.0) % Baso % (Auto) 0.9 (0.2-2.0) % Neut # (Auto) 6.9 H (1.4-6.5) 10^3/uL Lymph # (Auto) 1.0 L (1.2-3.8) 10^3/uL Armstrong # (Auto) 0.9 H (0.3-0.8) 10^3/uL Eos # (Auto) 0.3 (0.0-0.7) 10^3/uL Baso # (Auto) 0.1 (0.0-0.1) 10^3/uL Abs Immat Gran (auto) 0.01 (0.00-0.03) 10^3/uL Imm/Tot Granulo (auto) 0.1 (0.0-0.5) % PT 11.6 (9.0-11.6) sec INR 1.11 Sodium 141 (136-145) mmol/L Potassium 3.8 (3.5-5.1) mmol/L Chloride 103 (98-107) mmol/L Carbon Dioxide 26.7 (21.0-32.0) mmol/L Anion Gap 15.1 BUN 43.0 H (7.0-18.0) mg/dL Creatinine 1.65 H (0.55-1.02) mg/dL Est GFR ( Amer) 36 L (>=60 mL/min/1.73m^2) Est GFR (Non-Af Amer) 29 L (>=60 mL/min/1.73m^2) BUN/Creatinine Ratio 26.1 Glucose 134 H (74-106) mg/dL Calcium 9.4 (8.5-10.1) mg/dL Total Bilirubin 0.7 (0.2-1.0) mg/dL AST 27 (15-37) U/L ALT 29 (14-59) U/L Alkaline Phosphatase 107 (46-116) U/L Troponin I High Sens 16.8 15.4 (4.0-51.3) pg/mL Total Protein 8.7 H (6.4-8.2) g/dL Albumin 4.4 (3.4-5.0) g/dL Globulin 4.3 g/dL Albumin/Globulin Ratio 1.0 Discharge Plan Discharge Chief Complaint: Chest Pain Clinical Impression: Chest pain Patient Disposition: Home, Self-Care Condition: Good Prescriptions / Home Meds: New ranolazine 500 mg tablet extended release 12 hr 500 mg PO BID Qty: 20 0RF No Action furosemide 40 mg tablet latanoprost 0.005 % drops OPHTHALMIC (EYE) anastrozole 1 mg tablet atorvastatin 10 mg tablet metoprolol succinate 200 mg tablet extended release 24 hr PO amlodipine 5 mg tablet benazepril 10 mg tablet Januvia 50 mg tablet Eliquis 2.5 mg tablet Jardiance 10 mg tablet calcium carbonate-vitamin D3 600 mg-10 mcg (400 unit) tablet PO Print Language: Greek Instructions: Chest Pain (ED) Referrals: ONEL WRIGHT [Physician, Cardiology] - As soon as possible Soraida Bethea NP [Primary Care Provider] - 1 week Discharge Date/Time: 07/28/25 12:10
== END 2025-07-28 12:10 | disposition home or self-care (01) ==
PROVIDERS: Emergency Provider Emergency Medicine; PCP Nurse Practitioner Family
DX: R07.9 Chest pain, unspecified (principal); I48.91 Unspecified atrial fibrillation; I50.9 Heart failure, unspecified; I35.0 Nonrheumatic aortic (valve) stenosis
CPT/HCPCS: 36415; 71045; 80053; 84484; 85025; 85610; 93005; 99285

== ENCOUNTER 2025-07-29 07:07 | Outpatient (OUT) | payer MEDICARE, SELFPAY ==
--- NOTE | 2025-07-29 07:09 | CA_ITS ---
Patient Name: MABLE CHAPPELL MR#: [id number] : 1940 Exam Date: 07/29/2025 Ordering Doctor: DR ONEL WALTERS M.D. ECHOCARDIOGRAM REPORT PROCEDURE: CA ECHO DOPPLER COMPLETE INDICATIONS: AoVstenosis, CHF, MR, MS, Pulm HTN COMPARISON: None. DESCRIPTION: COMPLETE ECHOCARDIOGRAM Real-time transthoracic echocardiography with 2D, M-mode, spectral and color flow Doppler performed. QUALITY: Technical quality was good. LEFT VENTRICLE: Normal chamber size. Borderline left ventricular hypertrophy. Global left ventricular systolic function is normal, no wall motion abnormalities. Calculated left ventricular ejection fraction is 65%. LV EF: DIASTOLIC: Unable to evaluate diastolic function due to presence of mitral valve disease ATRIAL SEPTUM: Visually appears intact LEFT ATRIUM: Severe dilatation. RIGHT ATRIUM: Mild dilatation. RIGHT VENTRICLE: Normal chamber size. Reduced right ventricular systolic function. TRICUSPID VALVE:Normal mobility and thickness. No stenosis with mild regurgitation. Moderate pulmonary hypertension.RVSP 52mmHg MITRAL VALVE: Thickened with decreased mobility. Mild mitral valve stenosis, MVA 1.2cm2, mean gradient 2.2mmHg. There is no mitral annular calcification. Moderate mitral regurgitation. AORTIC VALVE: Normal trileaflet appearance. Severely calcified aortic valve. Severely diminished mobility. Doppler velocity suggest low-flow low gradient severe aortic valve stenosis. DVI 2.4, Vmax 2.7m/s, WISAM 0.6cm2, peak/mean gradients 30/16mmHg. Mild aortic regurgitation. AORTIC ROOT: Normal diameter and appearance measuring 3.2cm. The ascending aorta measures 2.6cm. PULMONIC VALVE:Normal thickness and mobility. No stenosis. Trivial regurgitation. PERICARDIUM: No evidence of pericardial effusion. IVC: Collapes with inspirations. Normal size PLEURA: CONCLUSION: Normal left ventricular systolic function without of motion abnormalities, ejection fraction 65% Unable to evaluate left ventricular diastolic function due to presence of mitral valve disease Normal right ventricular size with reduced systolic function Moderate pulmonary hypertension, RVSP 52 mmHg Mild mitral stenosis Moderate mitral regurgitation Severe low-flow low gradient aortic valve stenosis Mild aortic insufficiency Mild tricuspid regurgitation Adult Echocardiography Procedure Report Left Ventricle LVEDD (3.7 - 5.6 cm): 4.05 cm LVESD (2.2 - 4.0 cm): 2.47 cm LVIVS thickness (0.6 - 1.2 cm): 0.99 cm LVPW thickness (0.5 - 1.0 cm): 0.84 cm e': 0.06 m/s E - e': 28.08 LVOT Max Gradient: 1.78 mm[Hg] LVOT Area (cm2): 0.67 m/s Peak Velocity (LVOT): 0.67 m/s Mean Velocity (LVOT): 0.43 m/s LVOT Diameter 1.88 cm Left Ventricular Ejection Fraction: 65.34 % Left Atrium LA Volume Index (2D A2C): 66.60 ml/m2 Left Atrium Systolic Dimension: 5.19 cm Mitral Valve MV E to A Ratio: 3.49 Mitral Valve A-Wave Peak Velocity: 0.47 m/s Mitral Valve E-Wave Peak Velocity: 1.65 m/s Right Ventricle RV Internal Diastolic Dimension: 3.22 cm Aorta AO Root Diam: 3.21 cm Ascending Ao Diam: 2.62 cm Aortic Valve AoV Area (Peak Crescencio): 0.71 cm2, 0.74 cm2 AoV Area (VTI): 0.64 cm2, 0.69 cm2 Deceleration [place]: 1.79 m/s2 Pressure Half-Time: 669.90 ms Peak Velocity(Antegrade Flow): 2.48 m/s, 2.62 m/s, 2.74 m/s Peak Gradient(Antegrade Flow): 24.65 mm[Hg], 27.47 mm[Hg], 30.04 mm[Hg] Mean Velocity(Antegrade Flow): 1.97 m/s, 1.96 m/s, 1.89 m/s Mean Gradient(Antegrade Flow): 16.38 mm[Hg], 16.80 mm[Hg], 16.14 mm[Hg] Velocity Time Integral: 64.88 cm, 68.99 cm, 74.80 cm Tricuspid Valve Peak Velocity (Regurgitant Flow): 2.83 m/s, 2.97 m/s, 3.50 m/s, 3.28 m/s Pulmonic Valve Peak Velocity: 0.74 m/s Peak Gradient: 1.96 mm[Hg], 2.44 mm[Hg] Right Atrium Right Atrium Systolic Pressure: 44.05 ml, 44.05 ml Dictated by: Gregory Noonan MD on 07/31/2025 at 14:36 Approved by: Gregory Noonan MD on 07/31/2025 at 15:12
--- OUTSIDE RECORDS SUMMARY | 2025-07-29 07:09 | XMS_ITS | Encounter Summary ---
Author Organization [facility] Address [address] [place] [address] Care Team Providers Care Rocket Scientist Name Role Phone Elmira Brown DO Unavailable [phone] Elmira Brown DO Primary Care Provider [phone] Kim Santiago LPN Unavailable [phone] Lexy Mei MD Primary Care Provider Soraida Bethea CONSUMER RELATIONS SPECIALIST Unavailable [phone] Reason for Visit * Reason Comments New Med Request Encounter Details Date Type Department Care Team (Late Contact Info) Description 08/20/2023 Refill [facility] [address] [place] [address] Elmira Brown DO [address] [facility] [address] [place] [address] Social History Tobacco Use Types [...] on filedocumented in this encounter Care Teams Rocket Scientist Relationship Specialty Start Date End Date Elmira Brown DO [address] [facility] [address] [place] [address] PCP - [employer] 05/31/21 Elmira Brown DO [address] [facility] [address] [place] [address] PCP - General Family Medicine 04/09/23 01/11/24 Lexy Mei MD [address] [place] [address] PCP - General Family Medicine 01/12/24 Kim Santiago LPN Licensed Practical Nurse Family Medicine 12/24/2312/03 Soraida Bethea NP [address] [place] [address] Nurse Practitioner Family Medicine 01/12/24 documented as of this encounter
--- OUTSIDE RECORDS SUMMARY | 2025-07-29 07:09 | XMS_ITS ---
Author Name Interface, [id number] luan Address [address] [place] [address] Organization [employer] , [facility] Address [address] [place] [address] Allergies and Adverse Reactions Plan Reason for Visit Encounters Diagnostic Results Medications Problems Vital Signs
--- OUTSIDE RECORDS SUMMARY | 2025-07-29 07:10 | XMS_ITS | Encounter Summary ---
Author Organization [facility] Address [address] [place] [address] Care Team Providers Care School Age Program Teacher Name Role Phone Elmira Brown DO Unavailable [phone] Elmira Brown DO Primary Care Provider [phone] Kim Santiago LPN Unavailable [phone] Lexy Mei MD Primary Care Provider [phone] Soraida Bethea EMR TRAINER Unavailable [phone] Encounter Details Date Type Department Care Team (Late st Contact Info) Description 04/22/2023 Abstract [facility] [address] [facility] [place] [id number] Ewelina Sims MA Social History Tobacco Use [...] on filedocumented in this encounter Care Teams School Age Program Teacher Relationship Specialty Start Date End Date Elmira Brown DO [address] [address] [place] [id number] PCP - [employer] 05/31/21 Elmira Brown DO [address] [id number] PCP - General Family Medicine 04/09/23 01/11/24 Lexy Mei MD [address] [facility] [address] [place], [place] [id number] PCP - General Family Medicine 01/12/24 Kim Santiago LPN Licensed Practical Nurse Family Medicine 12/24/2312/03 Soraida Bethea NP [address] [facility] [address] [place], [place] [id number] Nurse Practitioner Family Medicine 01/12/24 documented as of this encounter
--- OUTSIDE RECORDS SUMMARY | 2025-07-29 07:10 | XMS_ITS | CCD ---
Author Name Interface, [id number] luan Address [address] [place] [address] Organization [employer] , [facility] Address [id number] [place] [address] Care Team Providers Care Janitorial Maintenance Worker Name Role Phone Mitch Hansen DO Unavailable Unavailable Allergies and Adverse Reactions Reason for Visit Problems Social History
--- OUTSIDE RECORDS SUMMARY | 2025-07-29 07:10 | XMS_ITS | Encounter Summary ---
Author Organization [facility] Address [address] [facility] [place] [address] Care Team Providers Care Laundry Folder Name Role Phone Elmira Brown DO Unavailable [phone] Lexy Mei MD Primary Care Provider [phone] Soraida Bethea BROWN STOCK WASHER Unavailable [phone] Reason for Visit * Reason Comments Med Refill Encounter Details Date Type Department Care Team (Late st Contact Info) Description 07/21[facility] [address] [facility] [place] [address] Soraida Bethea NP [address] [place], [place] [id number] Primary hypertension Social History Tobacco Use Types Packs/Day [...] as of this encounter Visit Diagnoses Diagnosis Primary hypertension Unspecified essential hypertension documented in this encounter Care Teams Laundry Folder Relationship Specialty Start Date End Date Elmira Brown DO [address] [facility] [address] [facility] [place] [address] PCP - [employer] 05/31/21 Lexy Mei MD [address] [place] [address] PCP - General Family Medicine 01/12/24 Soraida Bethea NP [address] [place] [address] Nurse Practitioner Family Medicine 01/12/24 documented as of this encounter
--- OUTSIDE RECORDS SUMMARY | 2025-07-29 07:10 | XMS_ITS ---
Author Name Interface, [id number] luan Address [address] [place] [address] Organization [id number] , [facility] Address [address] [place] [address] Allergies and Adverse Reactions Plan Reason for Visit Encounters Medications Problems
--- OUTSIDE RECORDS SUMMARY | 2025-07-29 07:10 | XMS_ITS | CCD ---
Author Organization [facility] Care Team Providers Care Slots Manager Name Role Phone Zachary Boyle Primary Care Provider ANABEL DUNCAN Referring Unavailable ANABEL DUNCAN Referring Unavailable ZACHARY BOYLE Primary Care Unavailable TomásAlbin parada Unavailable Zachary Boyle Primary Care Provider Kelvin Maya MD, [employer] Primary Care Provider [place], DR ZACHARY Bermudez Primary Care Unavailable FURLONG, DR ZACHARY Bermudez Consulting Unavailable FURLONG, DR ZACHARY Bermudez Attending Unavailable FURLONG, DR ZACHARY Bermudez Admitting Unavailable [place], DR CHARIS Maya Consulting Unavailable MISC, DR [...] DR ZACHARY Bermudez Primary Care Unavailable DHEERAJ SESAY Admitting Unavailable DHEERAJ SESAY Consulting Unavailable DHEERAJ SESAY Attending Unavailable FURLONG, DR ZACHARY Bermudez Primary Care Unavailable MOUKARBEL, DR SYKES Consulting Unavailable MOUKARBEL, DR SYKES Attending Unavailable MOUKARBEL, DR SYKES Admitting Unavailable VENTURADHEERAJ KUMARI Admitting Unavailable ELA GASPAR Consulting Unavailable MISC, DR DENNISON Primary Care Unavailable DHEERAJ SESAY Attending Unavailable DHEERAJ SESAY Consulting Unavailable FURLONG, DR ZACHARY Bermudez Primary [...] Bermudez Primary Care Unavailable Elmira Daniel DO G Unavailable Elmira Daniel DO Primary Care Provider Lexy Mei MD Primary Care Provider Neema PAIZ, Soraida Lopez Unavailable SORAIDA BETHEA Attending Unavailab ROCHELLE Adams Attending Unavailable NEEMA, SORAIDA Lopez Attending Unavailab ROCHELLE Adams Attending Unavailable ROCHELLE ONEIL Referring Unavailable BETHEA, SORAIDA Lopez Attending Unavailab le NEEMA, SORAIDA Lopez Referring Unavailab DIMPLE Long Attending Unavailable BETHEA, SORAIDA Lopez Referring Unavailab MAMIE Rascon Attending Unavailable NEEMA, SORAIDA Lopez Referring Unavailab KATHARINA Yañez Attending Unavailable BETHEA, SORAIDA Lopez Referring Unavailab le MAMIE GERBER Attending Unavailable BETHEA, SORAIDA Lopez Referring Unavailab MAMIE Rascon Attending Unavailable NEEMA, SORAIDA Lopez Referring Unavailab ROCHELLE Adams Attending Unavailable Stephanie DO, [place] Primary Care Provider IMAN VALENZUELA Referring Unavailable ELMIRA DANIEL Primary Care Unavailable IMAN VALENZUELA Referring Unavailable ELMIRA DANIEL Primary Care Unavailable Stephanie MATHEWSGalenee Unavailable DHEERAJ SESAY Attending Unavailable ONEL WRIGHT Attending Unavailable Medications Current Medications Medication Drug [...] At risk for bone density loss , [facility] (current) use of aromatase inhibitors Take 2 [...] Start: 10-16-2021 take 2 tablets by mo uth twice daily furosemide (LASIX) 20 MG tablet [...] ) Start: 07-07-2021 take 0.5 tablet by m out once daily JANUVIA 100 MG tablet Take 0.5 tablets by mouth daily 07/07/2021 Active Start: 07-07-2021 JANUVIA 100 MG tablet daily 0 07/07/2021 Active sodium zirconium cyclosilicate 01151 mg powder for oral suspension (5 sources) [...] disease (2 sources) Atherosclerotic heart disease of [place] coronary artery without angina pectoris; Translations: [Atherosclerotic heart disease of [place] coronary artery without angina pectoris] Onset: 5 Chronic Diabetes mellitus with complications (20 sources) [...] 4 Chronic Other aftercare (1 source) 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 Per Lizabeth patient had chest pain on Friday the that lasted about 30 minutes, Lizabeth states Yesy drank some vinegar to and felt better after that. Lizabeth states she is having her Echo Aug 08 and would like her seen sooner than Aug 22. Patient scheduled for Aug 10 with Yennifer Sesay. Advised Lizabeth if she has chest pain she needs to be seen in the ER. Lizabeth verbalized understanding and agreed with plan of care. [facility] 36on 05-17-2025 36 Patient mariama would like you to stop Yesy's driving [...] her until I see her next. Advised mariama Barone good. [facility] Telephoneon 05-17-2025 Telephone [id number] Mary Rodriguez 1940 F Date Provider Department Center 05/17/2025 [id number] LARA Family History Problem Relation Age of Onset Heart attack Mother Heart attack Brother Family Status - Relation Status Age at Mother Father Brother [facility] Office Visiton 05-16-2025 Follow-up visit [id number] Garcia 1940 F Date Provider Department Center 05/16/2025 367-ONEL WRIGHT NICHOLAS Camacho Family History Problem Relation Age of Onset Heart attack Mother Heart attack Brother Family Status - Relation Status Age at Mother Father Brother Level of Service:17479 OR OFFICE/OUTPATIENT ESTABLISHED MOD MDM 30 MIN [facility] Orders Onlyon 05-13-2025 Orders Only [id number] Garcia 1940 F Date Provider Department Center 05/13/2025 [id number], [facility] DONNIE Camacho Family History Problem Relation Age of Onset Heart attack Mother Heart attack Brother Family Status - Relation Status Age at Mother Brother [facility] Orders Onlyon 05-04-2025 Orders Only [id number] Mary Rodriguez 1940 F Date Provider Department Center 05/04/2025 [id number], HISTORICAL NICHOLAS Patrice Doug Family History Problem Relation Age of Onset Heart attack Mother Heart attack Brother Family Status - Relation Status Age at Mother Brother Normal [facility] Orders Onlyon 05-03-2025 Orders Only [id number] Mary Rodriguez 1940 F Date Provider Department Center 05/03/2025 [id number], HISTORICAL NICHOLAS Patrice Camacho Family History Problem Relation Age of Onset Heart attack Mother Heart attack Brother Family Status - Relation Status Age at Mother Brother Normal [facility] Erythrocyte distribution wid th Auto (RBC) [Ratio]on 05-02-2025 Erythrocyte distribution width (RBC) [Ratio] Erythrocyte distribution width [Ratio] by Automated count 11.0-15.0 [facility] Estimated glomerular filtrat ion rate (GFR) non- Americanon 05-02-2025 GFR/1.73 sq M.predicted among non-blacks MDRD (S/P/Bld) [Vol rate/Area] Estimated glomerular filtration rate (GFR) non- Low >=60 mL/min/1.73m 2 [facility] Hematocrit Auto (Bld) [Volum e fraction]on 05-02-2025 Hematocrit (Bld) [Volume fraction] Hematocrit [Volume Fraction] of Blood by Automated count 36.0-48.0 [facility] Hemoglobin [Mass/volume] in Bloodon 05-02-2025 Hemoglobin (Bld) [Mass/Vol] Hemoglobin [Mass/volume] in Blood 12.0-16.0 [facility] Laboratory - Chemistry and C hemistry - challengeon 05-02-2025 Albumin [Mass/Vol] 4.1 g/dL 3.4-5.0 [facility] Calcium [Mass/Vol] 9.1 mg/dL 8.5-10.1 [facility] Chloride [Moles/Vol] 104 mmol/L 98-107 [facility] CO2 [Moles/Vol] 29.5 mmol/L 21.0-32.0 [facility] Creatinine [Mass/Vol] 1.45 mg/dL High 0.55-1.02 [facility] GFR/1.73 sq M.predicted MDRD (S/P/Bld) [Vol rate/Area] 41 mL/min/{1.73_m2} Low >=60 mL/min/1.73m 2 [facility] Glucose [Mass/Vol] 223 mg/dL High 74-106 [facility] Magnesium [Mass/Vol] 2.4 mg/dL 1.8-2.4 [facility] Potassium [Moles/Vol] 4.1 mmol/L 3.5-5.1 [facility] Sodium [Moles/Vol] 144 mmol/L 136-145 [facility] Urate [Mass/Vol] 7.7 mg/dL High 2.6-6.0 [facility] Urea nitrogen [Mass/Vol] 37.0 mg/dL High 7.0-18.0 [facility] Urea nitrogen/Creatinine [Mass ratio] 25.5 mg/mg [facility] Laboratory - Urinalysison Protein (U) [Mass/Vol] 17.0 mg/dL High <=11.9 [facility] Leukocytes [#/volume] correc luis for nucleated erythrocytes in Blood by Automated counon 05-02-2025 WBC corrected for nucl RBC Auto (Bld) [#/Vol] Leukocytes [#/volume] corrected for nucleated erythrocytes in Blood by Automated coun 4.0-11.0 [facility] MCH Auto (RBC) [Entitic mass ]on 05-02-2025 MCH (RBC) [Entitic mass] MCH [Entitic mass] by Automated count 26.7-34.0 [facility] MCHC Auto (RBC) [Mass/Vol]on 05-02-2025 MCHC (RBC) [Mass/Vol] MCHC [Mass/volume] by Automated count 29.9-35.2 [facility] MCV Auto (RBC) [Entitic vol] on 05-02-2025 MCV (RBC) [Entitic vol] MCV [Entitic volume] by Automated count 81.0-99.0 [facility] Microalbumin [Mass/volume] i n Urineon 05-02-2025 Albumin DL <= 20 mg/L (U) [Mass/Vol] Microalbumin [Mass/volume] in Urine <=30.0 [facility] No Panel Informationon 05-02 25-Hydroxy Vitamin D Total 50.9 ng/mL [facility] Comment on above: <20 ng/mL Vit D defi cient20-<30 ng/mL Vit D howxssluobfn63-285 ng/mL Vit D sufficient>100 ng/mL Potential Toxicity Phosphorus Level 3.5 mg/dL 2.6-4.7 [facility] Urine Random Creatinine 55.08 mg/dL 20.00-300.00 [facility] Platelet mean volume Auto (B ld) [Entitic vol]on 05-02-2025 Platelet mean volume (Bld) [Entitic vol] Platelet mean volume [Entitic volume] in Blood by Automated count 9.5-13.5 [facility] Platelets Auto (Bld) [#/Vol] on 05-02-2025 Platelets (Bld) [#/Vol] Platelets [#/volume] in Blood by Automated count 150-450 [facility] RBC Auto (Bld) [#/Vol]on RBC (Bld) [#/Vol] Erythrocytes [#/volume] in Blood by Automated count 4.20-5.40 [facility] Serum or plasma anion gap de terminationon 05-02-2025 Anion gap [Moles/Vol] Serum or plasma an ion gap determination [facility] Urine microalbumin/creatinin e mass ratioon 05-02-2025 Albumin/Creatinine DL <= 20 mg/L (U) [Mass ratio] Urine microalbumin/creatinin e mass ratio High 0.0-29.9 [facility] Comment on above: NO MICROALBUMINURIA 0-29 MG/GCLINICAL MICROALBUMINURIA 30-300 MG/GMACROALBUMINURIA >300 MG/G Urine protein/creatinine rat ioon 05-02-2025 Protein/Creatinine (U) [Ratio] Urine protein/creatinine ratio [facility] [place] 125on 03-09-2025 Cancer Ag 125 Qn 8 [arb'U]/mL 0 - 38 U/mL [facility] Comment on above: The Jorje ECLIA as say is used. Results obtained with different assay methods cannot be used interchangeably. Michele Gusman [facility] [place] 125 8 U/mL Normal 0-38 [facility] Comment on above: Result Comment: The Jorje ECLIA assay is used. Results obtained with different assay methods cannot be used interchangeably. Performed By: #### C A125 #### [facility] [employer] [facility] [address] [place] [address] Auto Wash Buffer: Andrew Blakely MD No Panel Informationon 01-17 [...] Consent was given by the patient. [facility] Healthcare Office Visiton 11-10-2024 Follow-up visit [id number] Mary Rodriguez 1940 F Date Provider Department Amery 11/10/2024 DHEERAJ CARNEY CARD Patrice Hos Family History Problem Relation Age of Onset Heart attack Mother Heart attack Brother Family Status - Relation Status Age at Mother Brother Level of Service:65465 OR OFFICE/OUTPATIENT ESTABLISHED LOW MDM 20 MIN Reason for Visit and Comments: Valve Disorder [3372] Coronary Artery Disease [187] Atrial Fibrillation [80] Normal [facility] CA 125on 09-08-2024 CA 125 8 U/mL Normal 0-38 [facility] Comment on above: Result Comment: The Jorje ECLIA assay is used. Results obtained with different assay methods cannot be used interchangeably. Performed By: #### C A125 #### [facility] [address] [place] [address] Auto Wash Buffer: Andrew Blakely MD XR CERVICAL SPINE AP/LAT/FLE X/EXTon 05-26-2024 XR [...] METB)on Anion gap [Moles/Vol] 13.7 mmol/L Normal [facility] Comment on above: Performed By: #### C MP, URIC #### [facility] [address] [address] [address] Hussein Camacho Calcium [Mass/Vol] 9.7 mg/dL Normal 8.5-10.1 [facility] Comment on above: Performed By: #### C MP, URIC #### [facility] [address] [place] [address] Dr. Hussein Camacho Chloride [Moles/Vol] 100 mmol/L Normal 98-107 [facility] Comment on above: Performed By: #### C MP, URIC #### [facility] [address] [address] [address] Hussein Camacho CO2 [Moles/Vol] 29.9 mmol/L Normal 21.0-32.[address] [facility] Comment on above: Performed By: #### C MP, URIC #### [facility] [address] [address] [address] Hussein Camacho Creatinine [Mass/Vol] 1.87 mg/dL Critically high 0.55-1.02 [facility] Comment on above: Performed By: #### C MP, URIC #### [facility] [address] [address] [address] Hussein Camacho EGFR-AF PRYDEINIG 31 mL/min/1.73m2 Critically low >=60 [facility] Comment on above: Performed By: #### C MP, URIC #### [facility] [address] [address] [address] Hussein Camacho EGFR-NON AF PRYDEINIG 26 mL/min/1.73m2 Critically low >=60 [facility] Comment on above: Performed By: #### C MP, URIC #### [facility] [address] [address] [address] Hussein Camacho Glucose [Mass/Vol] 146 mg/dL Critically high 74-106 [facility] Comment on above: Performed By: #### C MP, URIC #### [facility] [address] [address] [address] Hussein Camacho Potassium [Moles/Vol] 4.6 mmol/L Normal 3.5-5.1 [facility] Comment on above: Performed By: #### C MP, URIC #### [facility] [address] [address] [address] Hussein Camacho Sodium [Moles/Vol] 139 mmol/L Normal 136-145 [facility] Comment on above: Performed By: #### C MP, URIC #### [facility] [address] [address] [address] Hussein Camacho Urea nitrogen [Mass/Vol] 67.0 mg/dL Critically high 7.0-18.0 [facility] Comment on above: Performed By: #### C MP, URIC #### [facility] [address] [address] [address] Hussein Camacho Urea nitrogen/Creatinine [Mass ratio] 35.8 mg/mg Normal [facility] Comment on above: Performed By: #### C MP, URIC #### [facility] [address] [address] [address] Hussein Camacho US TRANG DOP LEG [...] 17:00 Normal [facility] BNPon 03-12-2023 Natriuretic peptide B (Bld) [Mass/Vol] 3283.0 pg/mL Critically high <=1,800.0 [facility] Comment on above: Performed By: #### C MP, URIC #### [facility] [address] [place] [address] Dr. Hussein Camacho D-DIMERon 03-12-2023 D-DIMER 1.34 mg/L FEU Critically high <=0.59 [facility] Comment on above: Performed By: #### C MP, URIC #### [facility] [address] [place] [address] Dr. Hussein Camacho D-DIMER COMMENTS SEE BELOW Normal [facility] Comment on above: Result Comment: Incr [...] Performed By: #### C MP, URIC #### [facility] [address] [place] [address] Dr. Hussein Camacho PROF CHEM 8 (BAS METB)on Anion gap [Moles/Vol] 12.4 mmol/L Normal [facility] Comment on above: Performed By: #### C MP, URIC #### [facility] [address] [place] [address] Dr. Hussein Camacho Calcium [Mass/Vol] 9.6 mg/dL Normal 8.5-10.1 [facility] Comment on above: Performed By: #### C MP, URIC #### [facility] [address] [place] [address] Dr. Hussein Camacho Chloride [Moles/Vol] 104 mmol/L Normal 98-107 [facility] Comment on above: Performed By: #### C MP, URIC #### [facility] [address] [place] [address] Dr. Hussein Camacho CO2 [Moles/Vol] 29.6 mmol/L Normal 21.0-32.[address] [facility] Comment on above: Performed By: #### C MP, URIC #### [facility] [address] [place] [address] Dr. Hussein Camacho Creatinine [Mass/Vol] 1.55 mg/dL Critically high 0.55-1.02 [facility] Comment on above: Performed By: #### C MP, URIC #### [facility] [address] [place] [address] Dr. Hussein Camacho EGFR-AF PRYDEINIG 39 mL/min/1.73m2 Critically low >=60 [facility] Comment on above: Performed By: #### C MP, URIC #### [facility] [address] [place] [address] Dr. Hussein Camacho EGFR-NON AF PRYDEINIG 32 mL/min/1.73m2 Critically low >=60 [facility] Comment on above: Performed By: #### C MP, URIC #### [facility] [address] [place] [address] Dr. Hussein Camacho Glucose [Mass/Vol] 128 mg/dL Critically high 74-106 [facility] Comment on above: Performed By: #### C MP, URIC #### [facility] [address] [place] [address] Dr. Hussein Camacho Potassium [Moles/Vol] 3.9 mmol/L Normal 3.5-5.1 [facility] Comment on above: Performed By: #### C MP, URIC #### [facility] [address] [place] [address] Dr. Hussein Camacho Sodium [Moles/Vol] 142 mmol/L Normal 136-145 [facility] Comment on above: Performed By: #### C MP, URIC #### [facility] [address] [place] [address] Dr. Hussein Camacho Urea nitrogen [Mass/Vol] 49.0 mg/dL Critically high 7.0-18.0 [facility] Comment on above: Performed By: #### C MP, URIC #### [facility] [address] [place] [address] Dr. Hussein Camacho Urea nitrogen/Creatinine [Mass ratio] 31.6 mg/mg Normal [facility] Comment on above: Performed By: #### C MP, URIC #### [facility] [address] [place], [place] [address] Dr. Hussein Camacho ECHOCARDIO M/2D COMPLETEon 0 03-10-2023 ECHOCARDIO M/2D COMPLETE Patient Name Site Name YESY RODRIGUEZ [facility] Account No Medical Record Number Age Sex Date Time [id number] [facility]:[id number] F 03/10/2023 14:44 At the Request [...] Area (VTI): 0.61 cm2, 0.62 cm2 Deceleration Nolan: 1.84 m/s2 Pressure Half-Time: 571.86 ms Peak [...] Wright M.D. on 03/10/2023 at 17:00 Normal [facility] GLYCOHEMOGLOBIN A1Con 2022 ADA RECOMMENDATION SEE BELOW Normal [facility] Comment on above: Result Comment: ADA RECOMMENDED LIMIT 4.0 - 6.0 ADA THERAPEUTIC TARGET < 7.0 ACTION SUGGESTED > 7.0 Performed By: #### A 1C #### [facility] [address] [place] [address] Dr. Hussein Camacho Glucose [Mass/Vol] 154 mg/dL Normal [facility] Comment on above: Performed By: #### A 1C #### [facility] [address] [place] [address] Dr. Hussein Camacho HbA1c (Bld) [Mass fraction] 7.0 % Critically high 4.5-6.2 [facility] Comment on above: Performed By: #### A 1C #### [facility] [address] [place] [address] Dr. Hussein Camacho PROF CHEM 8 (BAS METB)on Anion gap [Moles/Vol] 8.3 mmol/L Normal [facility] Comment on above: Performed By: #### C MP, URIC #### [facility] [address] [place] [address] Dr. Hussein Camacho Calcium [Mass/Vol] 9.1 mg/dL Normal 8.5-10.1 [facility] Comment on above: Performed By: #### C MP, URIC #### [facility] [address] [place] [address] Dr. Hussein Camacho Chloride [Moles/Vol] 106 mmol/L Normal 98-107 [facility] Comment on above: Performed By: #### C MP, URIC #### [facility] [address] [place] [address] Dr. Hussein Camacho CO2 [Moles/Vol] 28.2 mmol/L Normal 21.0-32.[address] [facility] Comment on above: Performed By: #### C MP, URIC #### [facility] [address] [address] [address] Hussein Camacho Creatinine [Mass/Vol] 1.04 mg/dL Critically high 0.55-1.02 [facility] Comment on above: Performed By: #### C MP, URIC #### [facility] [address] [address] [address] Hussein Camacho EGFR-AF PRYDEINIG >60 Normal >=[address] [facility] Comment on above: Performed By: #### C MP, URIC #### [facility] [address] [place] [address] Dr. Hussein Camacho EGFR-NON AF PRYDEINIG 50 mL/min/1.73m2 Critically low >=60 [facility] Comment on above: Performed By: #### C MP, URIC #### [facility] [address] [address] [address] Hussein Camacho Glucose [Mass/Vol] 122 mg/dL Critically high 74-106 T [facility] Comment on above: Performed By: #### C MP, URIC #### [facility] [address] [place] [address] Dr. Hussein Camacho Potassium [Moles/Vol] 4.5 mmol/L Normal 3.5-5.1 [facility] Comment on above: Performed By: #### C MP, URIC #### [facility] [address] [address] [address] Hussein Camacho Sodium [Moles/Vol] 138 mmol/L Normal 136-145 [facility] Comment on above: Performed By: #### C MP, URIC #### [facility] [address] [address] [address] Hussein Camacho Urea nitrogen [Mass/Vol] 33.0 mg/dL Critically high 7.0-18.0 [facility] Comment on above: Performed By: #### C MP, URIC #### [facility] [address] [place] [address] Dr. Hussein Camacho Urea nitrogen/Creatinine [Mass ratio] 31.7 mg/mg Normal [facility] Comment on above: Performed By: #### C MP, URIC #### [facility] [address] [place], [place] [address] Dr. Hussein Camacho [place] 125on 01-24-2023 Cancer Ag 125 Qn 9 [arb'U]/mL NINF - 38 U/mL [facility] Comment on above: The Jorje ECLIA as say is used. Results obtained with different assay methods cannot be used interchangeable. [facility] CT HEAD WO CONon 01-13-2023 CT [...] SKYLER MEYER Date: 2023-01-13 13:33 Normal [facility] PROF 14(COMP METB)on 023 Albumin [Mass/Vol] 4.3 g/dL Normal 3.4-5.0 [facility] Comment on above: Performed By: #### C MP #### [facility] [address] [place], [place] [address] Dr. Hussein Camacho Albumin/Globulin [Mass ratio] 1.2 {ratio} Normal [facility] Comment on above: Performed By: #### C MP #### [facility] [address] [place], [place] [address] Dr. Hussein Camacho ALP [Catalytic activity/Vol] 96 U/L Normal 46-116 [facility] Comment on above: Performed By: #### C MP #### [facility] [address] [address] [address] Hussein Camacho ALT [Catalytic activity/Vol] 43 U/L Normal 14-59 [facility] Comment on above: Performed By: #### C MP #### [facility] [address] [address] [address] Hussein Camacho Anion gap [Moles/Vol] 13.2 mmol/L Normal [facility] Comment on above: Performed By: #### C MP #### [facility] [facility] [address] [place] [address] Dr. Hussein Camacho AST [Catalytic activity/Vol] 30 U/L Normal 15-37 [facility] Comment on above: Performed By: #### C MP #### [facility] [address] [place] [address] Dr. Hussein Camacho Bilirubin [Mass/Vol] 0.7 mg/dL Normal 0.2-1.0 [facility] Comment on above: Performed By: #### C MP #### [facility] [address] [place] [address] Dr. Hussein Camacho Calcium [Mass/Vol] 9.7 mg/dL Normal 8.5-10.1 [facility] Comment on above: Performed By: #### C MP #### [facility] [address] [address] [address] Hussein Camacho Chloride [Moles/Vol] 105 mmol/L Normal 98-107 [facility] Comment on above: Performed By: #### C MP #### [facility] [address] [address] [address] Hussein Camacho CO2 [Moles/Vol] 28.5 mmol/L Normal 21.0-32.[address] [facility] Comment on above: Performed By: #### C MP #### [facility] [address] [address] [address] Hussein Camacho Creatinine [Mass/Vol] 1.48 mg/dL Critically high 0.55-1.02 [facility] Comment on above: Performed By: #### C MP #### [facility] [address] [address] [address] Hussein Camacho EGFR-AF PRYDEINIG 41 mL/min/1.73m2 Critically low >=60 [facility] Comment on above: Performed By: #### C MP #### [facility] [address] [address] [address] Hussein Camacho EGFR-NON AF PRYDEINIG 34 mL/min/1.73m2 Critically low >=60 [facility] Comment on above: Performed By: #### C MP #### [facility] [address] [address] [address] Hussein Camacho Globulin (S) [Mass/Vol] 3.6 g/dL Normal [facility] Comment on above: Performed By: #### C MP #### [facility] [address] [address] [address] Hussein Camacho Glucose [Mass/Vol] 140 mg/dL Critically high 74-106 [facility] Comment on above: Performed By: #### C MP #### [facility] [address] [address] [address] Hussein Camacho Potassium [Moles/Vol] 5.7 mmol/L Critically high 3.5-5.1 [facility] Comment on above: Performed By: #### C MP #### [facility] [address] [address] [address] Hussein Camacho Protein [Mass/Vol] 7.9 g/dL Normal 6.4-8.2 [facility] Comment on above: Performed By: #### C MP #### [facility] [address] [address] [address] Hussein Camacho Sodium [Moles/Vol] 141 mmol/L Normal 136-145 [facility] Comment on above: Performed By: #### C MP #### [facility] [address] [address] [address] Hussein Camacho Urea nitrogen [Mass/Vol] 42.0 mg/dL Critically high 7.0-18.0 [facility] Comment on above: Performed By: #### C MP #### [facility] [address] [address] [address] Hussein Camacho Urea nitrogen/Creatinine [Mass ratio] 28.4 mg/mg Normal [facility] Comment on above: Performed By: #### C MP #### [facility] [address] [address] [address] Hussein Camacho MRI Shoulder w/o Lefton [...] by Boaz Weeks on 10/14/2022 1541 Normal [facility] PTH INTACTon 09-12-2022 PTH, Intact 46 pg/mL Normal 15-65 [facility] Comment on above: Performed By: #### P THINT #### [facility] [address] [place] [address] Dr. Hussein Camacho CBC AUTO DIFFon 09-10-2022 BASO # 0.1 103/ul Normal 0.0-0.1 [facility] Comment on above: Performed By: #### C BC #### [facility] [address] [place] [address] Dr. Hussein Camacho Basophils/100 WBC (Bld) 0.8 % Normal 0.2-2.0 [facility] Comment on above: Performed By: #### C BC #### [facility] [address] [place] [address] Dr. Hussein Camacho EO # 0.3 103/ul Normal 0.0-0.7 [facility] Comment on above: Performed By: #### C BC #### [facility] [address] [place] [address] Dr. Hussein Camacho Eosinophils/100 WBC (Bld) 3.3 % Normal 0.9-7.0 [facility] Comment on above: Performed By: #### C BC #### [facility] [address] [place] [address] Dr. Hussein Camacho Erythrocyte distribution width (RBC) [Ratio] 13.6 % Normal 11.0-15.0 [facility] Comment on above: Performed By: #### C BC #### [facility] [address] [place] [address] Dr. Hussein Camacho Hematocrit (Bld) [Volume fraction] 41.5 % Normal 36.0-48.0 [facility] Comment on above: Performed By: #### C BC #### [facility] [address] [place] [address] Dr. Hussein Camacho Hemoglobin (Bld) [Mass/Vol] 13.5 g/dL Normal 12.0-16.0 [facility] Comment on above: Performed By: #### C BC #### [facility] [address] [place] [address] Dr. Hussein Camacho IG # 0.03 10e3/ul Normal 0.00-0.03 [facility] Comment on above: Performed By: #### C BC #### [facility] [address] [place] [address] Dr. Hussein Camacho IG % 0.3 % Normal 0.0-0.5 [facility] Comment on above: Performed By: #### C BC #### [facility] [address] [place] [address] Dr. Hussein Camacho LYMPH # 1.3 103/ul Normal 1.2-3.8 [facility] Comment on above: Performed By: #### C BC #### [facility] [address] [place] [address] Dr. Hussein Camacho Lymphocytes/100 WBC (Bld) 12.7 % Critically low 20.5-60.0 [facility] Comment on above: Performed By: #### C BC #### [facility] [address] [place] [address] Dr. Hussein Camacho MANUAL DIFF REQ NO Normal [facility] Comment on above: Performed By: #### C BC #### [facility] [address] [place] [address] Dr. Hussein Camacho MCH (RBC) [Entitic mass] 31.4 pg Normal 26.7-34.0 [facility] Comment on above: Performed By: #### C BC #### [facility] [address] [place] [address] Dr. Hussein Camacho MCHC (RBC) [Mass/Vol] 32.5 g/dL Normal 29.9-35.2 [facility] Comment on above: Performed By: #### C BC #### [facility] [address] [place] [address] Dr. Hussein Camacho MCV (RBC) [Entitic vol] 96.5 fL Normal 81.0-99.0 [facility] Comment on above: Performed By: #### C BC #### [facility] [address] [place] [address] Dr. Hussein Camacho MONO # 0.9 103/ul Critically high 0.3-0.8 [facility] Comment on above: Performed By: #### C BC #### [facility] [address] [place] [address] Dr. Hussein Camacho Monocytes/100 WBC (Bld) 9.0 % Normal 1.7-12.0 [facility] Comment on above: Performed By: #### C BC #### [facility] [address] [place] [address] Dr. Hussein Camacho NEUT # 7.5 103/ul Critically high 1.4-6.5 [facility] Comment on above: Performed By: #### C BC #### [facility] [address] [place] [address] Dr. Hussein Camacho Neutrophils/100 WBC (Bld) 73.9 % Normal 43.0-75.0 [facility] Comment on above: Performed By: #### C BC #### [facility] [address] [place] [address] Dr. Hussein Camacho Platelet mean volume (Bld) [Entitic vol] 10.6 fL Normal 9.5-13.5 [facility] Comment on above: Performed By: #### C BC #### [facility] [address] [place] [address] Dr. Hussein Camacho PLT 287 103/ul Normal 150-450 [facility] Comment on above: Performed By: #### C BC #### [facility] [address] [place] [address] Dr. Hussein Camacho RBC 4.30 106/ul Normal 4.20-5.40 [facility] Comment on above: Performed By: #### C BC #### [facility] [address] [place] [address] Dr. Hussein Camacho WBC 10.2 103/ul Normal 4.0-11.0 [facility] Comment on above: Performed By: #### C BC #### [facility] [address] [place] [address] Dr. Hussein Camacho PROF 14(COMP METB)on 022 Albumin [Mass/Vol] 4.3 g/dL Normal 3.4-5.0 [facility] Comment on above: Performed By: #### C MP, URIC #### [facility] [address] [place] [address] Dr. Hussein Camacho Albumin/Globulin [Mass ratio] 1.1 {ratio} Normal [facility] Comment on above: Performed By: #### C MP, URIC #### [facility] [address] [place] [address] Dr. Hussein Camacho ALP [Catalytic activity/Vol] 102 U/L Normal 46-116 [facility] Comment on above: Performed By: #### C MP, URIC #### [facility] [address] [place] [address] Dr. Hussein Camacho ALT [Catalytic activity/Vol] 47 U/L Normal 14-59 [facility] Comment on above: Performed By: #### C MP, URIC #### [facility] [address] [place] [address] Dr. Hussein Camacho Anion gap [Moles/Vol] 12.4 mmol/L Normal Th [facility] Comment on above: Performed By: #### C MP, URIC #### [facility] [address] [place] [address] Dr. Hussein Camacho AST [Catalytic activity/Vol] 23 U/L Normal 15-37 [facility] Comment on above: Performed By: #### C MP, URIC #### [facility] [address] [place] [address] Dr. Hussein Camacho Bilirubin [Mass/Vol] 0.4 mg/dL Normal 0.2-1.0 [facility] Comment on above: Performed By: #### C MP, URIC #### [facility] [address] [place] [address] Dr. Hussein Camacho Calcium [Mass/Vol] 9.2 mg/dL Normal 8.5-10.1 [facility] Comment on above: Performed By: #### C MP, URIC #### [facility] [address] [place] [address] Dr. Hussein Camacho Chloride [Moles/Vol] 102 mmol/L Normal 98-107 [facility] Comment on above: Performed By: #### C MP, URIC #### [facility] [address] [place] [address] Dr. Hussein Camacho CO2 [Moles/Vol] 28.5 mmol/L Normal 21.0-32.[address] [facility] Comment on above: Performed By: #### C MP, URIC #### [facility] [address] [place] [address] Dr. Hussein Camacho Creatinine [Mass/Vol] 1.55 mg/dL Critically high 0.55-1.02 [facility] Comment on above: Performed By: #### C MP, URIC #### [facility] [address] [address] [address] Hussein Camacho EGFR-AF PRYDEINIG 39 mL/min/1.73m2 Critically low >=60 [facility] Comment on above: Performed By: #### C MP, URIC #### [facility] [address] [address] [address] Hussein Camacho EGFR-NON AF PRYDEINIG 32 mL/min/1.73m2 Critically low >=60 [facility] Comment on above: Performed By: #### C MP, URIC #### [facility] [address] [place] [address] Dr. Hussein Camacho Globulin (S) [Mass/Vol] 3.9 g/dL Normal [facility] Comment on above: Performed By: #### C MP, URIC #### [facility] [address] [place] [address] Dr. Hussein Camacho Glucose [Mass/Vol] 160 mg/dL Critically high 74-106 [facility] Comment on above: Performed By: #### C MP, URIC #### [facility] [address] [place] [address] Dr. Hussein Camacho Potassium [Moles/Vol] 3.9 mmol/L Normal 3.5-5.1 [facility] Comment on above: Performed By: #### C MP, URIC #### [facility] [address] [place] [address] Dr. Hussein Camacho Protein [Mass/Vol] 8.2 g/dL Normal 6.4-8.2 [facility] Comment on above: Performed By: #### C MP, URIC #### [facility] [address] [place] [address] Dr. Hussein Camacho Sodium [Moles/Vol] 139 mmol/L Normal 136-145 [facility] Comment on above: Performed By: #### C MP, URIC #### [facility] [address] [place] [address] Dr. Hussein Camacho Urea nitrogen [Mass/Vol] 42.0 mg/dL Critically high 7.0-18.0 [facility] Comment on above: Performed By: #### C MP, URIC #### [facility] [address] [place] [address] Dr. Hussein Camacho Urea nitrogen/Creatinine [Mass ratio] 27.1 mg/mg Normal [facility] Comment on above: Performed By: #### C MP, URIC #### [facility] [address] [place] [address] Dr. Hussein Camacho UA RANDOMon 09-10-2022 Bilirubin Ql (U) Negative Normal NEGATIVE [facility] Comment on above: Performed By: #### U A #### [facility] [address] [place] [address] Dr. Hussein Camacho Clarity (U) CLEAR Normal CLEAR [facility] Comment on above: Performed By: #### U A #### [facility] [address] [place] [address] Dr. Hussein Camacho Color (U) LT. YELLOW Normal YELLOW [facility] Comment on above: Performed By: #### U A #### [facility] [address] [place] [address] Dr. Hussein Camacho Glucose Ql (U) Negative Normal NEGATIVE [facility] Comment on above: Performed By: #### U A #### [facility] [address] [place] [address] Dr. Hussein Camacho Hemoglobin Ql (U) TRACE-INTACT Abnormal NEGATIVE [facility] Comment on above: Performed By: #### U A #### [facility] [address] [place] [address] Dr. Hussein Camacho Ketones Ql (U) Negative Normal NEGATIVE [facility] Comment on above: Performed By: #### U A #### [facility] [address] [place] [address] Dr. Hussein Camacho LEUKOCYTES SMALL Abnormal NEGATIVE [facility] Comment on above: Performed By: #### U A #### [facility] [address] [place] [address] Dr. Hussein Camacho Nitrite Ql (U) Negative Normal NEGATIVE [facility] Comment on above: Performed By: #### U A #### [facility] [address] [place] [address] Dr. Hussein Camacho pH (U) 6.0 [pH] Normal 5-9 [facility] Comment on above: Performed By: #### U A #### [facility] [address] [place] [address] Dr. Hussein Camacho SPEC GRAVITY 1.020 Normal 1.005-<=1.02 5 [facility] Comment on above: Performed By: #### U A #### [facility] [address] [place] [address] Dr. Hussein Camacho UA PROTEIN Negative Normal NEGATIVE/ TRACE [facility] Comment on above: Performed By: #### U A #### [facility] [address] [place] [address] Dr. Hussein Camacho Urobilinogen Qn (U) 0.2 {Naina'U}/dL Normal 0.2 - 1. 0 [facility] Comment on above: Performed By: #### U A #### [facility] [address] [place] [address] Dr. Hussein Camacho URIC ACID SERUMon 09-10-2022 Urate [Mass/Vol] 7.5 mg/dL Critically high 2.6-6.0 [facility] Comment on above: Performed By: #### C MP, URIC #### [facility] [address] [place] [address] Dr. Hussein Camacho URINE T PROTEIN CREAT RATIOo n 09-10-2022 Protein (U) [Mass/Vol] 7.3 mg/dL Normal <=12.0 [facility] Comment on above: Performed By: #### U RTPCR #### [facility] [address] [place] [address] Dr. Hussein Camacho UR PROT CREAT RAT 0.13 Normal [facility] Comment on above: Performed By: #### U RTPCR #### [facility] [address] [place] [address] Dr. Hussein Camacho URINE CREAT 56.41 mg/dL Normal 20.00-300.00 [facility] Comment on above: Performed By: #### U RTPCR #### [facility] [address] [address] [address] Hussein Camacho VITAMIN D 25 OHon 09-10-2022 VIT D 25-OH 50.6 ng/mL Normal [facility] Comment on above: Performed By: #### V ITAD #### [facility] [address] [address] [address] Hussein Camacho VIT D RANGES SEE BELOW Normal [facility] Comment on above: Result Comment: <20 ng/mL Vit D deficient 20 - <30 ng/mL Vit D insufficient 30 - 100 ng/mL Vit D sufficient >100 ng/mL Potential Toxicity Performed By: #### V ITAD #### [facility] [address] [place] [address] Dr. Hussein Camacho ECHOCARDIO M/2D COMPLETEon 0 08-21-2022 ECHOCARDIO M/2D COMPLETE Patient: YESY RODRIGUEZ Exam Date: 08/21/2022 : 1940 Gender:F Ordering : KATHARINA JOVEL Admission #: [id number] Family : DR ZACHARY BOYLE Order #: [id number] CLICK HERE TO VIEW EXAM ECHOCARDIOGRAM REPORT [...] Wright M.D. on 08/23/2022 at 17:05 Normal [facility] CA 125on 07-10-2022 CA 125 8 U/mL NINF - 38 U/mL [facility] Comment on above: The Jorje ECLIA as say is used. Results obtained with different assay methods cannot be used interchangeable. [facility] ALBUMIN, RANDOM URINE W/CREA TININEon 06-11-2022 ALBUMIN, URINE 2.5 mg/dL Normal See Note: [facility] Comment on above: Order Comment: AMEENAI NG:YESFASTING: YES Result Comment: Refe rence Range: Reference Range Not established Performed By: #### 1 0621, 867 #### [facility] [address], [address] [place] [id number] Learning Program Manager: Matt Beasley MD ALBUMIN/CREATININE RATIO, RANDOM URINE [...] a diagnostic category. Performed By: #### 1 6355, 867 #### [facility] [address] [place] [address] Learning Program Manager: Matt Beasley MD Creatinine (U) [Mass/Vol] 64 mg/dL Normal 20-275 [facility] Comment on above: Order Comment: TANO NG:YESFASTING: YES Performed By: #### 1 0165, 867 #### [facility] [address] [address] Learning Program Manager: Matt Beasley MD BASIC METABOLIC PANELon 05-31 Calcium [Mass/Vol] 10.0 mg/dL Normal 8.6-10.4 [facility] Comment on above: Performed By: #### 1 0165, 867 #### [facility] [address] [address] Learning Program Manager: Matt Beasley MD Chloride [Moles/Vol] 103 mmol/L Normal 98-110 [facility] Comment on above: Performed By: #### 1 0165, 867 #### [facility] [address] [place] [address] Learning Program Manager: Matt Beasley MD CO2 [Moles/Vol] 25 mmol/L Normal 20-32 [facility] Comment on above: Performed By: #### 1 0165, 867 #### [facility] [address] [place] [address] Learning Program Manager: Matt Beasley MD Creatinine [Mass/Vol] 1.43 mg/dL High 0.60-0.[address] [facility] Comment on above: Performed By: #### 1 016, 867 #### [facility] [address] [place] [address] Learning Program Manager: Matt Beasley MD GFR/1.73 sq M.predicted among non-blacks MDRD (S/P/Bld) [Vol rate/Area] 36 mL/min/{1.73_m2} Low > OR = 60 [facility] Comment on above: Result Comment: The eGFR is based on the CKD-EPI 2020 equation. To calculate the new eGFR from a previous Creatinine or Cystatin C result, go to https://www.kidney.org/professionals/ kdoqi/gfr%5Fcalculator Performed By: #### 1 164, 867 #### [facility] [address] [address] Learning Program Manager: Matt Beasley MD Glucose [Mass/Vol] 124 mg/dL High 65-99 [facility] Comment on above: Result Comment: Fasting reference interval For someone without known diabetes, a glucose value between 100 and 125 mg/dL is consistent with prediabetes and should be confirmed with a follow-up test. Performed By: #### 1 016, 867 #### [facility] [address] [place] [address] Learning Program Manager: Matt Beasley MD Potassium [Moles/Vol] 5.5 mmol/L High 3.5-5.3 [facility] Comment on above: Performed By: #### 1 164, 867 #### [facility] [address] [address] Learning Program Manager: Matt Beasley MD Sodium [Moles/Vol] 138 mmol/L Normal 135-146 [facility] Comment on above: Performed By: #### 1 016, 867 #### [facility] [address] [address] Learning Program Manager: Matt Beasley MD Urea nitrogen [Mass/Vol] 43 mg/dL High 7-25 [facility] Comment on above: Performed By: #### 1 016, 867 #### [facility] [address] [address] Learning Program Manager: Matt Beasley MD Urea nitrogen/Creatinine [Mass ratio] 30 mg/mg High 6-22 [facility] Comment on above: Performed By: #### 1 016, 867 #### [facility] [address] [address] Learning Program Manager: Matt Beasley MD HEMOGLOBIN A1con 06-11-2022 HEMOGLOBIN [...] #### 1 0165, 867 #### [facility] [address] [facility], [address] [place] [address] Learning Program Manager: Matt Beasley MD ECHOCARDIO M/2D COMPLETEon 0 06-05-2022 ECHOCARDIO M/2D COMPLETE Patient: YESY RODRIGUEZ Exam Date: 06/05/2022 : 1940 Gender:F Ordering : DHEERAJ SESAY Admission #: [id number] Family : DR ZACHARY BOYLE Order #: [id number] CLICK HERE TO VIEW EXAM ECHOCARDIOGRAM REPORT [...] Wright M.D. on 06/05/2022 at 13:14 Normal [facility] MAMM SCREEN 3D GIRMA CADon 05-29-2022 MG MAMM SCREEN 3D GIRMA CAD Patient: YESY RODRIGUEZ Exam Date: 05/29/2022 : 1940 Gender:F Ordering : DR ZACHARY BOYLE Admission #: [id number] Family : Order #: [id number] CLICK HERE TO VIEW EXAM RADIOLOGY REPORT PROCEDURE: MAMMOGRAM SCREENING 3D BILATERAL CAD COMPARISON: MG MAMM SCREEN 3D GIRMA CAD, 07/05/2020. MG [...] ovarian cancer at age 36. LOCATION: [facility] BREAST COMPOSITION: Heterogeneously dense,which may [...] Schreiber MD on 06/11/2022 at 14:06 Normal [facility] PROF CHEM 8 (BAS METB)on Anion gap [Moles/Vol] 15.1 mmol/L Normal [facility] Comment on above: Performed By: #### B MP #### [facility] [address] [place] [address] Dr. Hussein Camacho Calcium [Mass/Vol] 9.6 mg/dL Normal 8.5-10.1 [facility] Comment on above: Performed By: #### B MP #### [facility] [address] [address] [address] Hussein Camacho Chloride [Moles/Vol] 103 mmol/L Normal 98-107 [facility] Comment on above: Performed By: #### B MP #### [facility] [address] [address] [address] Hussein Camacho CO2 [Moles/Vol] 26.0 mmol/L Normal 21.0-32.[address] [facility] Comment on above: Performed By: #### B MP #### [facility] [id number] Hussein Camacho Creatinine [Mass/Vol] 1.51 mg/dL Critically high 0.55-1.02 [facility] [facility] Comment on above: Performed By: #### B MP #### [facility] [address] [address] [address] Hussein Camacho EGFR-AF PRYDEINIG 40 mL/min/1.73m2 Critically low >=60 [facility] Comment on above: Performed By: #### B MP #### [facility] [address] [address] [address] Hussein Camacho EGFR-NON AF PRYDEINIG 33 mL/min/1.73m2 Critically low >=60 [facility] Comment on above: Performed By: #### B MP #### [facility] [address] [address] [address] Hussein Camacho Glucose [Mass/Vol] 120 mg/dL Critically high 74-106 T [facility] Comment on above: Performed By: #### B MP #### [facility] [address] [address] [address] Hussein Camacho Potassium [Moles/Vol] 5.1 mmol/L Normal 3.5-5.1 [facility] Comment on above: Performed By: #### B MP #### [facility] [address] [address] [address] Hussein Camacho Sodium [Moles/Vol] 139 mmol/L Normal 136-145 [facility] Comment on above: Performed By: #### B MP #### [facility] [id number] Hussein Camacho Urea nitrogen [Mass/Vol] 40.0 mg/dL Critically high 7.0-18.0 [facility] Comment on above: Performed By: #### B MP #### [facility] [address] [address] [address] Hussein Camacho Urea nitrogen/Creatinine [Mass ratio] 26.5 mg/mg Normal [facility] Comment on above: Performed By: #### B MP #### [facility] [address] [address] [address] Hussein Camacho Basic Metabolic Panelon - Anion gap [Moles/Vol] 10 mmol/L 9 - 17 mmol/L [facility] Calcium [Mass/Vol] 9.8 mg/dL 8.6 - 10. 4 mg/dL [facility] Chloride [Moles/Vol] 104 mmol/L 98 - 10 7 mmol/L [facility] [employer] CO2 [Moles/Vol] 25 mmol/L 20 - 31 mmol/L [facility] Creatinine [Mass/Vol] 1.23 mg/dL High 0.50 - 0.90 mg/dL [facility] GFR 51 mL/min Low >60 [facility] GFR Non- 42 mL/min Low >60 [facility] Glucose [Mass/Vol] 133 mg/dL High 70 - 99 mg/dL [facility] Interpretation and review of laboratory results Abnormal [facility] Potassium [Moles/Vol] 4.2 mmol/L 3.7 - 5.3 mmol/L [facility] Sodium [Moles/Vol] 139 mmol/L 135 - 144 mmol/L [facility] Urea nitrogen (BldV) [Mass/Vol] 32 mg/dL High 8 - 23 mg/dL [facility] Urea nitrogen/Creatinine (Bld) [Mass ratio] 26 High [facility] - Chemistry and C hemistry - challengeon 03-27-2022 GFR/1.73 sq M.predicted MDRD (S/P/Bld) [Vol rate/Area] [facility] Comment on above: Average GFR for 70 o r more years old: 75 mL/min/1.73sq m Chronic Kidney Disease: <60 mL/min/1.73sq m Kidney failure: <15 mL/min/1.73sq m eGFR calculated using average adult body mass. Additional eGFR calculator available at: http://www.K[employer]/multiple_crcl_2011.htm Stage 1: Some kidney damage normal GFR Stage 2: Mild kidney damage GFR 60-89 Stage 3: Moderate kidney damage GFR 30-59 Stage 4: Severe kidney damage GFR 15-29 Stage 5: Severe kidney damage GFR <15 ESRD - chronic treatment by dialysis or transplant BASIC METABOLIC PANELon Calcium [Mass/Vol] 10.1 mg/dL Normal 8.6-10.4 [facility] Comment on above: Performed By: #### 1 7306, 905, 53491, 718, 05480, 622, 06494, 496 #### [facility] [address], [address] [place] [address] Learning Program Manager: Matt Beasley MD Chloride [Moles/Vol] 100 mmol/L Normal 98-110 [facility] Comment on above: Performed By: #### 1 7306, 905, 13799, 718, 87760, 622, 17206, 496 #### [facility] [address], [address] [place] [address] Learning Program Manager: Matt Beaslye MD CO2 [Moles/Vol] 28 mmol/L Normal 20-32 [facility] Comment on above: Performed By: #### 1 7306, 905, 67801, 718, 65779, 622, 66956, 496 #### [facility] [address], [address] [place] [address] Learning Program Manager: Matt Beasley MD Creatinine [Mass/Vol] 1.89 mg/dL High 0.60-0.88 [facility] Comment on above: Result Comment: For patients >49 years of age, the reference limit for Creatinine is approximately 13% higher for people identified as -Chadian. Performed By: #### 1 7306, 905, 11914, 718, 59963, 622, 27274, 496 #### [facility] [address] [place] [address] Learning Program Manager: Matt Beasley MD eGFR NON-AFR. PRYDEINIG 24 mL/min/1.73m2 Low > OR = 60 [facility] Comment on above: Performed By: #### 1 7306, 905, 43705, 718, 20485, 622, 88007, 496 #### [facility] [address], [address] [place] [address] Learning Program Manager: Matt Beasley MD GFR/1.73 sq M.predicted among blacks MDRD (S/P/Bld) [Vol rate/Area] 28 mL/min/{1.73_m2} Low > OR = 60 [facility] Comment on above: Performed By: #### 1 7306, 905, 88951, 718, 65041, 622, 97219, 496 #### [facility] [address] [address] Learning Program Manager: Matt Beasley MD Glucose [Mass/Vol] 123 mg/dL High 65-99 [facility] Comment on above: Result Comment: Fasting reference interval For someone without known diabetes, a glucose value between 100 and 125 mg/dL is consistent with prediabetes and should be confirmed with a follow-up test. Performed By: #### 1 7306, 905, 96202, 718, 03214, 622, 24372, 496 #### [facility] [address] [place] [address] Learning Program Manager: Matt Beasley MD Potassium [Moles/Vol] 4.7 mmol/L Normal 3.5-5.3 [facility] Comment on above: Performed By: #### 1 7306, 905, 01058, 718, 58711, 622, 94645, 496 #### [facility] [address] [place] [address] Learning Program Manager: Matt Beasley MD Sodium [Moles/Vol] 136 mmol/L Normal 135-146 [facility] Comment on above: Performed By: #### 1 7306, 905, 46491, 718, 11783, 622, 97808, 496 #### [facility] [address] [place] [address] Learning Program Manager: Matt Beasley MD Urea nitrogen [Mass/Vol] 64 mg/dL High 7-25 [facility] Comment on above: Performed By: #### 1 7306, 905, 49930, 718, 23918, 622, 00427, 496 #### [facility] [address] [address] Learning Program Manager: Matt Beasley MD Urea nitrogen/Creatinine [Mass ratio] 34 mg/mg High 6- [facility] Comment on above: Performed By: #### 1 7306, 905, 22932, 718, 72078, 622, 97433, 496 #### [facility] [address], [address] [place] [address] Learning Program Manager: Matt Beasley MD HEMOGLOBIN A1con 03-05-2022 HEMOGLOBIN [...] #### 1 0165, 867 #### [facility] [address], [address] [place] [address] Learning Program Manager: Matt Beasley MD MAGNESIUMon 03-05-2022 Magnesium [Mass/Vol] 2.3 mg/dL Normal 1.5-2.5 [facility] Comment on above: Order Comment: FASTI NG:YES FASTING: YES Performed By: #### 1 7306, 905, 73589, 718, 95553, 622, 22999, 496 #### [facility] [address], [address] [place] [address] Learning Program Manager: Matt Beasley MD PHOSPHATE ( PHOSPHORUS)on 03-05-2022 Phosphate [Mass/Vol] 4.5 mg/dL High 2.1-4.3 [facility] Comment on above: Performed By: #### 1 7306, 905, 51938, 718, 49545, 622, 51090, 496 #### [facility] [address], [address] [place] [address] Learning Program Manager: Matt Beasley MD PTH, INTACT WITHOUT CALCIUMo [...] High Performed By: #### 1 7306, 905, 77371, 718, 72610, 622, 63940, 496 #### [facility] [address], [address] [place] [address] Learning Program Manager: Matt Beasley MD TSH W/REFLEX TO FT4on 2021 TSH W/REFLEX TO FT4 4.31 mIU/L Normal 0.40-4.50 [facility] Comment on above: Performed By: #### 1 7306, 905, 86249, 718, 45401, 622, 72048, 496 #### [facility] [address] [place] [address] Learning Program Manager: Matt Beasley MD URIC ACIDon 03-05-2022 Urate [Mass/Vol] 8.7 mg/dL High 2.5-7.0 [facility] Comment on above: Result Comment: Ther apeutic target for gout patients: <6.0 mg/dL Performed By: #### 1 7306, 905, 68430, 718, 29025, 622, 27401, 496 #### [facility] [address], [address] [place] [address] Learning Program Manager: Matt Beasley MD VITAMIN D,25-OH,TOTAL,IAon 0 03-05-2022 [...] D, (D2,D3), LC/MS/MS is recommended: order code 82642 (patients >2yrs). See Note 1 Note 1 For additional information, please refer to http://education.Performance Lab/faq/MGK446 (This link is being provided for informational/ educational purposes only.) Performed By: #### 1 7306, 905, 55394, 718, 45053, 622, 94342, 496 #### [facility] [address], [address] [place] [phone] Learning Program Manager: Matt Beasley MD US carotid doppler BIon 01-02 US carotid doppler BI [facility] [place] [address] Ultrasound Report Signed Patient: Yesy Valadez MR#: [id number] 74 : 1940 Acct:[id number] Age/Sex: 81 / F ADM Date: 01/21/22 Loc: RT Room: Type: [facility] Attending Dr: Onel Wright MD Ordering [...] Kevon Hickman MD01/22/2022 12:41 PM Dictation Location: [address] [place] [address] Tech: Alissa Arguello Transcribed By: DENIA 01/22/22 1241 Dictated By: Kevon Hickman MD 01/22/22 1241 Signed By: 01/22/22 1241 Normal [facility] Complete Pulmonary Functiono n 01-21-2022 Complete Pulmonary Function [facility] [place] [address] Pulmonary Function Signed Patient: Yesy Valadez MR#: [id number] 74 : 1940 Acct:[id number] Age/Sex: 81 / F ADM Date: 01/21/22 Loc: RT Room: Type: [facility] Attending Dr: Onel Wright MD Ordering [...] of 1.17 L or 83% predicted. The WOQ06-42% was supranormal at 2.15 L/sec or 214% predicted with this all likely related to the inadequate duration of exhalation. After a 350% longer duration of exhalation on the postbronchodilator effort, the forced vital capacity did improve by 25% to 1.47 L or 76% predicted. There is actually a 14% decline in the FEV1 and a 60% decline in the EAI18-37%. LUNG VOLUMES: Lung volumes by plethysmography indicate [...] 01/21/22 1240 Signed By: 01/22/22 1347 Normal [facility] CREATININE BLOODon 2 Creatinine [Mass/Vol] 1.04 mg/dL Normal 0.60-1.20 [facility] Comment on above: Order Comment: No: D o not add to previous draw Performed By: #### 2 5656 #### [facility] [address] eGFR- non- 50 ml/min/1.73sq m Abnormal >60 [facility] Comment on above: Order Comment: No: D o not add to previous draw Result Comment: Calc ulation may not be valid for patients over 70 years Performed By: #### 2 5656 #### [facility] [address] GFR/1.73 sq M.predicted among blacks MDRD (S/P/Bld) [Vol rate/Area] mL/min/{1.73_m2} Normal >60 [facility] Comment on above: Order Comment: No: D o not add to previous draw Result Comment: Calc ulation may not be valid for patients over 70 years Performed By: #### 2 5656 #### [facility] [address] Cardiovascular Lab Reporton 01-17-2022 Cardiovascular Lab Report [facility] Patient Name: Yesy Rodriguez [facility] MR #: [id number] Physician: Onel De of [facility] Wright Medicine Service Date: 01/16/2022 Division of Birthdate: 1940 Cardiology Room #: [id number] Adult Cardiovascular Services [facility] [address] [facility] [place]. [place] [address] Cardiovascular Laboratory Report INDICATION: The patient is [...] enlarged. She is now brought to the labor relations representative for cardiac catheterization. PROCEDURES: 1. Right heart catheterization. 2. Left heart catheterization. 3. Mitral valve study. 4. Aortic valve study. 5. Bilateral selective coronary angiography. 6. Limited right common femoral angiography. 7. Access into the right common femoral artery and vein under ultrasound guidance. METHODS: Procedure was explained to the patient with risks and benefits. She signed consent. She was brought to labor relations representative in a fasting state. The right groin area was prepped and draped in usual fashion. Micropuncture technique was used for access in the right common femoral artery. Inner cannula angiography was performed followed by upsizing to a 4-[place]an x 11 cm sheath. Access was obtained using same technique in the right common femoral vein and a 6-[place] x 11 cm sheath was placed. A 6-[place] Orosco catheter was used for heart catheterization with measurement pressures and calculation of cardiac output using the estimated ROSE MARIE method. A 4-[place] JR4 diagnostic catheter was advanced to the ascending aorta. Then, using a straight Glidewire, the aortic valve was crossed and the catheter advanced to the left ventricular cavity. Left heart catheterization was performed. Mitral valve study was performed with simultaneous measurement of the pulmonary wedge pressure and left ventricular diastolic pressures. The Oorsco catheter was removed. Pullback across the aortic valve was performed with measurement of pressures. Catheter was removed. Bilateral selective coronary angiography was then performed using 4-[place] JL4 and JR4 diagnostic catheters. Catheters were [...] 3. Moderately elevated right-sided filling pressures. 4. Whkatdgi-pb-[id number] elevation of the left-sided filling pressures. 5. [...] on (more content not included)... Normal [facility] POC GLUCOSE LABon 01-17-2022 Glucose [Mass/Vol] 109 mg/dL High 70-100 [facility] Comment on above: Performed By: #### 8 5499 #### [facility] [address] [place] [address], [facility] BASIC METABOLIC PANELon 01-01 Calcium [Mass/Vol] 9.2 mg/dL Normal 8.6-10.3 [facility] Comment on above: Order Comment: This order is a replacement of the rejected order with accession number [id number]. Performed By: #### 0 0071 #### [facility] [address] [place] [address], [facility] Chloride [Moles/Vol] 105 mmol/L Normal 98-107 [facility] Comment on above: Order Comment: This order is a replacement of the rejected order with accession number [id number]. Performed By: #### 0 0071 #### [facility] [address] [place] [id number], [facility] CO2 [Moles/Vol] 26 mmol/L Normal 21-31 [facility] Comment on above: Order Comment: This order is a replacement of the rejected order with accession number [id number]. Performed By: #### 0 0071 #### [facility] [address] [place] [address], [facility] Creatinine [Mass/Vol] 1.27 mg/dL High 0.60-1.20 [facility] Comment on above: Order Comment: This order is a replacement of the rejected order with accession number [id number]. Performed By: #### 0 0071 #### [facility] [address] eGFR- 49 ml/min/1.73sq m Abnormal >60 [facility] Comment on above: Order Comment: This order is a replacement of the rejected order with accession number [id number]. Result Comment: Calc ulation may not be valid for patients over 70 years Performed By: #### 0 0071 #### [facility] [address] [place] [address], [facility] eGFR- non- 40 ml/min/1.73sq m Abnormal >60 [facility] Comment on above: Order Comment: This order is a replacement of the rejected order with accession number [id number]. Result Comment: Calc ulation may not be valid for patients over 70 years Performed By: #### 0 0071 #### [facility] [address] [place] [address], [place] Glucose [Mass/Vol] 113 mg/dL High 70-100 [facility] Comment on above: Order Comment: This order is a replacement of the rejected order with accession number [id number]. Performed By: #### 0 0071 #### [facility] [address] [place] [address], [place] Potassium [Moles/Vol] 4.0 mmol/L Normal 3.5-5.1 [facility] Comment on above: Order Comment: This order is a replacement of the rejected order with accession number [id number]. Performed By: #### 0 0071 #### [facility] [address] [place] [address], [place] Sodium [Moles/Vol] 140 mmol/L Normal 136-145 [facility] Comment on above: Order Comment: This order is a replacement of the rejected order with accession number [id number]. Performed By: #### 0 0071 #### [facility] [address] [place] [address], [place] Urea nitrogen [Mass/Vol] 48 mg/dL High 7-25 [facility] Comment on above: Order Comment: This order is a replacement of the rejected order with accession number [id number]. Performed By: #### 0 0071 #### [facility] [address] [place] [address], [place] Calcium [Mass/Vol] 9.3 mg/dL Normal 8.6-10.3 [facility] Comment on above: Performed By: #### 0 0071 #### [facility] [address] [place] [address], [place] Chloride [Moles/Vol] 106 mmol/L Normal 98-107 [facility] Comment on above: Performed By: #### 0 0071 #### [facility] [address] [place] [address], [place] CO2 [Moles/Vol] 27 mmol/L Normal 21-31 [facility] Comment on above: Performed By: #### 0 0071 #### [facility] [address] [place] [address], [place] Creatinine [Mass/Vol] 1.47 mg/dL High 0.60-1.20 [facility] Comment on above: Performed By: #### 0 0071 #### [facility] [address] [place] [address], [facility] eGFR- 41 ml/min/1.73sq m Abnormal >60 [facility] Comment on above: Result Comment: Calc ulation may not be valid for patients over 70 years Performed By: #### 0 0071 #### [facility] [address] [place] [address], [facility] eGFR- non- 34 ml/min/1.73sq m Abnormal >60 [facility] Comment on above: Result Comment: Calc ulation may not be valid for patients over 70 years Performed By: #### 0 0071 #### [facility] [address] [place] [address], [place] Glucose [Mass/Vol] 107 mg/dL High 70-100 [facility] Comment on above: Performed By: #### 0 0071 #### [facility] [address] [place] [address], [place] Potassium [Moles/Vol] 4.5 mmol/L Normal 3.5-5.1 [facility] Comment on above: Performed By: #### 0 0071 #### [facility] [address] [place] [address], [place] Sodium [Moles/Vol] 141 mmol/L Normal 136-145 [facility] Comment on above: Performed By: #### 0 0071 #### [facility] [address] [place] [address], [facility] Urea nitrogen [Mass/Vol] 51 mg/dL High 7-25 [facility] Comment on above: Performed By: #### 0 0071 #### [facility] [address] [place] [address], [facility] CBC COMPLETE BLOOD COUNTon 01-16-2022 Erythrocyte distribution width (RBC) [Ratio] 15.6 % High 11.5-15.0 [facility] Comment on above: Performed By: #### 5 0608 #### [facility] [address] [place] [address], [facility] Hematocrit (Bld) [Volume fraction] 39.3 % Normal 36.0-45.0 [facility] Comment on above: Performed By: #### 5 0608 #### [facility] [address] [place] [address], [facility] Hemoglobin (Bld) [Mass/Vol] 12.2 g/dL Normal 12.0-15.0 [facility] Comment on above: Performed By: #### 5 0608 #### [facility] [address] [place] [address], [facility] MCH (RBC) [Entitic mass] 28.7 pg Normal 27.0-33.0 [facility] Comment on above: Performed By: #### 5 0608 #### [facility] [address] [place] [address], [facility] MCHC (RBC) [Mass/Vol] 31.0 g/dL Low 32.0-35.0 [facility] Comment on above: Performed By: #### 5 0608 #### [facility] [address] [place] [address], [facility] MCV (RBC) [Entitic vol] 92.5 fL Normal 82.0-98.0 [facility] Comment on above: Performed By: #### 5 0608 #### [facility] [address] [place] [address], [facility] Nucleated RBC/100 WBC (Bld) [Ratio] 0 % Normal 0-0 [facility] Comment on above: Performed By: #### 5 0608 #### [facility] [address] [place] [address], [facility] PLAT CNT 278 10*3/uL Normal 150-400 [facility] Comment on above: Performed By: #### 5 0608 #### [facility] [address] [place] [address], [facility] RBC (Bld) [#/Vol] 4.25 10*6/uL Normal 3.80-5.[address] [facility] Comment on above: Performed By: #### 5 0608 #### [facility] [address] [place] [address], [facility] WBC (Bld) [#/Vol] 8.68 10*3/uL Normal 4.00-10.[address] [facility] Comment on above: Performed By: #### 5 0608 #### [facility] [address] BASIC METABOLIC PANELon 12-01 Calcium [Mass/Vol] 10.2 mg/dL Normal 8.6-10.4 [facility] Comment on above: Order Comment: FASTI NG:YESFASTING: YES Performed By: #### 1 164, 867 #### [facility] [address], [address] [place] [address] Learning Program Manager: Matt Beasley MD Chloride [Moles/Vol] 100 mmol/L Normal 98-110 [facility] Comment on above: Order Comment: FASTI NG:YESFASTING: YES Performed By: #### 1 164, 867 #### [facility] [place] [address] [place] , [address] [place] [address] Director: Matt Beasley MD CO2 [Moles/Vol] 28 mmol/L Normal 20-32 [facility] Comment on above: Order Comment: FASTI NG:YESFASTING: YES Performed By: #### 1 164, 867 #### [facility] [address], [address] [place] [address] Learning Program Manager: Matt Beasley MD Creatinine [Mass/Vol] 1.54 mg/dL High 0.60-0.88 [facility] Comment on above: Order Comment: FASTI NG:YESFASTING: YES Result Comment: For patients >49 years of age, the reference limit for Creatinine is approximately 13% higher for people identified as -Chadian. Performed By: #### 1 016, 867 #### [facility] [address], [address] [place] [address] Learning Program Manager: Matt Beasley MD eGFR NON-AFR. PRYDEINIG 31 mL/min/1.73m2 Low > OR = 60 [facility] Comment on above: Order Comment: FASTI NG:YESFASTING: YES Performed By: #### 1 016, 867 #### [facility] [place] [address] Learning Program Manager: Matt Beasley MD GFR/1.73 sq M.predicted among blacks MDRD (S/P/Bld) [Vol rate/Area] 36 mL/min/{1.73_m2} Low > OR = 60 [facility] Comment on above: Order Comment: FASTI NG:YESFASTING: YES Performed By: #### 1 016, 867 #### [facility] [address], [address] [place] [address] Learning Program Manager: Matt Beasley MD Glucose [Mass/Vol] 119 mg/dL High 65-99 [facility] Comment on above: Order Comment: FASTI NG:YESFASTING: YES Result Comment: Fasting reference interval For someone without known diabetes, a glucose value between 100 and 125 mg/dL is consistent with prediabetes and should be confirmed with a follow-up test. Performed By: #### 1 0165, 867 #### [facility] [place] [address] Learning Program Manager: Matt Beasley MD Potassium [Moles/Vol] 4.1 mmol/L Normal 3.5-5.[address] [facility] Comment on above: Order Comment: FASTI NG:YESFASTING: YES Performed By: #### 1 5, 867 #### [facility] [place] [address] Learning Program Manager: Matt Beasley MD Sodium [Moles/Vol] 140 mmol/L Normal 135-146 [facility] Comment on above: Order Comment: FASTI NG:YESFASTING: YES Performed By: #### 1 164, 867 #### [facility] [place] [address] Learning Program Manager: Matt Beasley MD Urea nitrogen [Mass/Vol] 45 mg/dL High 7-25 [facility] Comment on above: Order Comment: FASTI NG:YESFASTING: YES Performed By: #### 1 164, 867 #### [facility] [place] [address] Learning Program Manager: Matt Beasley MD Urea nitrogen/Creatinine [Mass ratio] 29 mg/mg High 6-22 [facility] Comment on above: Order Comment: FASTI NG:YESFASTING: YES Performed By: #### 1 5, 867 #### [facility] [place] [address] Learning Program Manager: Matt Beasley MD BASIC METABOLIC PANELon 11-2 Calcium [Mass/Vol] 10.1 mg/dL Normal 8.6-10.4 [facility] Comment on above: Performed By: #### 1 0165, 867 #### [facility] [place] [address] Learning Program Manager: Matt Beasley MD Chloride [Moles/Vol] 103 mmol/L Normal 98-110 [facility] Comment on above: Performed By: #### 1 0165, 867 #### [facility] [address], [address] [place] [address] Learning Program Manager: Matt Beasley MD CO2 [Moles/Vol] 28 mmol/L Normal 20-32 [facility] Comment on above: Performed By: #### 1 016, 867 #### [facility] [address], [address] [place] [address] Learning Program Manager: Matt Beasley MD Creatinine [Mass/Vol] 1.29 mg/dL High 0.60-0.[address] [facility] Comment on above: Result Comment: For patients >49 years of age, the reference limit for Creatinine is approximately 13% higher for people identified as -Chadian. Performed By: #### 1 016, 867 #### [facility] [address], [address] [place] [address] Learning Program Manager: Matt Beasley MD eGFR NON-AFR. PRYDEINIG 38 mL/min/1.73m2 Low > OR = 60 [facility] Comment on above: Performed By: #### 1 016, 867 #### [facility] [place] [address] Learning Program Manager: Matt Beasley MD GFR/1.73 sq M.predicted among blacks MDRD (S/P/Bld) [Vol rate/Area] 44 mL/min/{1.73_m2} Low > OR = 60 [facility] Comment on above: Performed By: #### 1 016, 867 #### [facility] [address], [address] [place] [address] Learning Program Manager: Matt Beasley MD Glucose [Mass/Vol] 107 mg/dL High 65-99 [facility] Comment on above: Result Comment: Fasting reference interval For someone without known diabetes, a glucose value between 100 and 125 mg/dL is consistent with prediabetes and should be confirmed with a follow-up test. Performed By: #### 1 0165, 867 #### [facility] [address], [address] [place] [address] Learning Program Manager: Matt Beasley MD Potassium [Moles/Vol] 4.1 mmol/L Normal 3.5-5.[address] [facility] Comment on above: Performed By: #### 1 0165, 867 #### [facility] [place] [address] Learning Program Manager: Matt Beasley MD Sodium [Moles/Vol] 139 mmol/L Normal 135-146 [facility] Comment on above: Performed By: #### 1 Eugenie, 867 #### [facility] [place] [address] Learning Program Manager: Matt Beasley MD Urea nitrogen [Mass/Vol] 30 mg/dL High 7- [facility] Comment on above: Performed By: #### 1 016, 867 #### [facility] [place] [address] Learning Program Manager: Matt Beasley MD Urea nitrogen/Creatinine [Mass ratio] 23 mg/mg High 6- [facility] Comment on above: Performed By: #### 1 Eugenie, 867 #### [facility] [place] [address] Learning Program Manager: Matt Beasley MD T4 (THYROXINE), TOTALon 10-02 T4 [Mass/Vol] 7.8 ug/dL Normal 5.1-11.9 [facility] Comment on above: Performed By: #### 1 164, 867 #### [facility] [place] [address] Learning Program Manager: Matt Beasley MD TSHon 10-23-2021 TSH Qn 7.48 m[IU]/L High 0.40-4.50 [facility] Comment on above: Performed By: #### 1 016, 867 #### [facility] [place] [address] Learning Program Manager: Matt Beasley MD CA 125on 09-26-2021 CA 125 26 U/mL Normal <38 [facility] Comment on above: Performed By: #### C A125 #### [facility] [email or web address] [address] [place] [address] [employer] Buffer: Andrew Blakely MD CA 125Ordered By: Anabel Babb on on 09-26-2021 CA 125 26 U/mL <38 [facility] [employer] Work Phone: [facility] [employer] Work Phone: Microscopic UrinalysisOrdere d By: Anabel Duncan on 09-26-2021 - [facility] [employer] Work Phone: Amorphous, UA NOT REPORTED None [facility] Work Phone: Bacteria, UA NOT REPORTED None [facility] Work Phone: Casts UA NOT REPORTED [facility] Work Phone: Crystals, UA NOT REPORTED None /HPF [facility] Work Phone: Epithelial Cells UA 0 TO 2 [facility] Work Phone: Mucus, UA NOT REPORTED None [facility] [employer] Work Phone: Other Observations UA NOT REPORTED NOT REQ. M [facility] Work Phone: RBC, UA 2 TO 5 [facility] Work Phone: Comment on above: Reference range defi margarita for non-centrifuged specimen. Renal Epithelial, UA NOT REPORTED 0 /HPF [facility] Work Phone: Trichomonas, UA NOT REPORTED None [facility] Work Phone: WBC, UA 0 TO 2 [facility] Work Phone: Yeast, UA NOT REPORTED None [facility] Work Phone: [facility] [employer] Work Phone: UA w/Reflex Cultureon 2020 Bilirubin, SemiQt,Ur Negative Normal NEG [facility] Comment on above: Performed By: #### U AX, UMICAO #### [facility] [address] [place] [address] [employer] Buffer: Andrew Blakely MD Blood, Urine Negative Normal NEG [facility] Comment on above: Performed By: #### U AX, UMICAO #### [facility] [address] [place] [address] [employer] Buffer: Andrew Blakely MD Clarity (U) Clear Normal CLEAR [facility] Comment on above: Performed By: #### U AX, UMICAO #### [address] [address] [employer] Buffer: Andrew Blakely MD Color (U) Yellow Normal YEL [facility] Comment on above: Performed By: #### U AX, UMICAO #### [facility] [email or web address] [address] [place] [address] [employer]: Andrew Blakely MD Glucose Ql (U) Negative Normal NEG [facility] Comment on above: Performed By: #### U AX, UMICAO #### [address] [address] [employer] Buffer: Andrew Blakely MD Ketones Ql (U) Negative Normal NEG [facility] Comment on above: Performed By: #### U AX, UMICAO #### [facility] [email or web address] [address] [place] [address] [employer] Buffer: Andrew Blakely MD Leukocyte esterase Test strip Ql (U) TRACE Abnormal NEG [facility] Comment on above: Performed By: #### U AX, UMICAO #### [facility] [address] [place] [address] [employer] Buffer: Andrew Blakely MD Nitrite,Ur Negative Normal NEG [facility] Comment on above: Performed By: #### U AX, UMICAO #### [facility] [place] [address] [employer] Buffer: Andrew Blakely MD PH,Ur 7.0 Normal 5.0-8.0 [facility] Comment on above: Performed By: #### U AX, UMICAO #### [facility] [address] [place] [address] [employer] Buffer: Andrew Blakely MD Protein Ql (U) Negative Normal NEG [facility] Comment on above: Performed By: #### U AX, UMICAO #### [facility] [address] [place] [address] [employer] Buffer: Andrew Blakely MD Spec. [place],Ur 1.015 Normal 1.005-1.030 [facility] Comment on above: Performed By: #### U AX, UMICAO #### [facility] [address] [place] [address] [employer] Buffer: Andrew Blakely MD Urobilinogen,Ur Normal Normal NORM [facility] Comment on above: Performed By: #### U AX, UMICAO #### [facility] [address] [place] [address] [employer] Buffer: Andrew Blakely MD Comment NOT REPORTED Normal [facility] Comment on above: Performed By: #### U AX, UMICAO #### [facility] [address] [place] [address] [employer] Buffer: Andrew Blakely MD Urinalysis Reflex to Culture Ordered By: Anabel Duncan on 09-26-2021 Bilirubin Urine Negative NEGATIVE [facility] Work Phone: Color, UA Yellow Yellow [facility] Work Phone: Glucose, Ur Negative NEGATIVE [facility] Work Phone: Interpretation and review of laboratory results Abnormal [facility] Work Phone: Ketones Ql (U) Negative NEGATIVE [employer] Work Phone: Leukocyte esterase Test strip Ql (U) TRACE Abnormal NEGATIVE [employer] Work Phone: Nitrite, Urine Negative NEGATIVE [employer] [facility] Work Phone: pH, UA 7.0 [facility] [employer] Work Phone: Protein, UA Negative NEGATIVE [facility] Work Phone: Specific [place], UA 1.015 [employer] Work Phone: Turbidity UA Clear Clear [facility] Work Phone: Urinalysis Comments NOT REPORTED [facility] [employer] Work Phone: Urine Hgb Negative NEGATIVE [facility] Phone: Urobilinogen, Urine Normal Normal [facility] [employer] Phone: [facility] Work Phone: Urinalysis,Microon 1 ----- Normal [facility] Comment on above: Performed By: #### U AXCALVIN #### [employer] [address] [place] [address] [phone] [employer] Buffer: Andrew Blakely MD Epithelial cells LM Ql (Urine sed) 0 TO 2 Normal 0-5 [facility] Comment on above: Performed By: #### U AX UMICAO #### [employer] [address] [place] [address] [phone] [employer] Buffer: Andrew Blakely MD Urine RBC's 2 TO 5 Normal 0-4 [facility] Comment on above: Result Comment: Refe rence range defined for non-centrifuged specimen. Performed By: #### U AX UMICAO #### [employer] [address] [place] [address] [phone] [employer] Buffer: Andrew Blakely MD Urine WBC's 0 TO 2 Normal 0-5 [facility] Comment on above: Performed By: #### U AX, UMICAO #### [facility] [address] [place] [address] [employer] Buffer: Andrew Blakely MD Amorphous sediment LM Ql (Urine sed) NOT REPORTED Normal NONE [facility] Comment on above: Performed By: #### U AX, UMICAO #### [facility] [address] [place] [address] [employer] Buffer: Andrew Blakely MD Bacteria NOT REPORTED Normal NONE [facility] Comment on above: Performed By: #### U AX, UMICAO #### [facility] [email or web address] [address] [place] [address] Auto [employer] Buffer: Andrew Blakely MD Casts NOT REPORTED Normal 0-8 [facility] Comment on above: Performed By: #### U AX, UMICAO #### [facility] [email or web address] [address] [place] [address] [employer] Buffer: Andrew Blakely MD Crystals LM Nom (Urine sed) NOT REPORTED Normal NONE [facility] Comment on above: Performed By: #### U AX, UMICAO #### [facility] [email or web address] [address] [place] [address] [employer] Buffer: Andrew Blakely MD Epithelial, Renal NOT REPORTED Normal 0 [facility] Comment on above: Performed By: #### U AX, UMICAO #### [facility] [email or web address] [address] [place] [address] [employer] Buffer: Andrew Blakely MD Mucus Strands NOT REPORTED Normal NONE [facility] Comment on above: Performed By: #### U AX, UMICAO #### [facility] [email or web address] [address] [place] [address] [employer] Buffer: Andrew Blakely MD Other Observations NOT REPORTED Normal NREQ [facility] Comment on above: Performed By: #### U AX, UMICAO #### [facility] [address] [place], [place] [phone] [employer] Buffer: Andrew Blakely MD Trichomonas NOT REPORTED Normal NONE [facility] Comment on above: Performed By: #### U AX, UMICAO #### [facility] [address] [place], [place] [phone] [employer] Buffer: Andrew Blakely MD Yeast NOT REPORTED Normal NONE [facility] Comment on above: Performed By: #### U AX, UMICAO #### [facility] [address] [place], [place] [phone] [employer] Buffer: Andrew Blakely MD [facility] 07-27-2021 Albumin [Mass/Vol] 4.4 g/dL Normal 3.6-5.1 [facility] Comment on above: Performed By: #### 1 164, 867 #### [facility] [place] [address] Learning Program Manager: Matt Beasley MD Albumin/Globulin [Mass ratio] 1.8 {ratio} Normal 1.0-2.5 [facility] Comment on above: Performed By: #### 1 016, 867 #### [facility] [place] [address] Learning Program Manager: Matt Beasley MD ALP [Catalytic activity/Vol] 67 U/L Normal 37-153 [facility] Comment on above: Performed By: #### 1 164, 867 #### [facility] [place] [address] Learning Program Manager: Matt Beasley MD ALT [Catalytic activity/Vol] 10 U/L Normal 6-29 [facility] Comment on above: Performed By: #### 1 016, 867 #### [facility] [place] [address] Learning Program Manager: Matt Beasley MD AST [Catalytic activity/Vol] 17 U/L Normal 10-35 [facility] Comment on above: Performed By: #### 1 164, 867 #### [facility] [place] [address] Learning Program Manager: Matt Beasley MD Bilirubin [Mass/Vol] 0.4 mg/dL Normal 0.2-1.2 [facility] Comment on above: Performed By: #### 1 164, 867 #### [facility] [place] [address] Learning Program Manager: Matt Beasley MD Calcium [Mass/Vol] 9.8 mg/dL Normal 8.6-10.4 [facility] Comment on above: Performed By: #### 1 164, 867 #### [facility] [place] [address] Learning Program Manager: Matt Beasley MD Chloride [Moles/Vol] 104 mmol/L Normal 98-110 [facility] Comment on above: Performed By: #### 1 164, 867 #### [facility] [place] [address] Learning Program Manager: Matt Beasley MD CO2 [Moles/Vol] 25 mmol/L Normal 20-32 [facility] Comment on above: Performed By: #### 1 164, 867 #### [facility] [place] [address] Learning Program Manager: Matt Beasley MD Creatinine [Mass/Vol] 1.37 mg/dL High 0.60-0.[address] [facility] Comment on above: Result Comment: For patients >49 years of age, the reference limit for Creatinine is approximately 13% higher for people identified as -[place]adian. Performed By: #### 1 164, 867 #### [facility] [place] [address] Learning Program Manager: Matt Beasley MD eGFR NON-AFR. PRYDEINIG 36 mL/min/1.73m2 Low > OR = 60 [facility] Comment on above: Performed By: #### 1 016, 867 #### [facility] [place] [address] Learning Program Manager: Matt Beasley MD GFR/1.73 sq M.predicted among blacks MDRD (S/P/Bld) [Vol rate/Area] 41 mL/min/{1.73_m2} Low > OR = 60 [facility] Comment on above: Performed By: #### 1 0165, 867 #### [facility] [place] [address] Learning Program Manager: Matt Beasley MD Globulin (S) [Mass/Vol] 2.5 g/dL Normal 1.9-3.7 [facility] Comment on above: Performed By: #### 1 016, 867 #### [facility] [place] [address] Learning Program Manager: Matt Beasley MD Glucose [Mass/Vol] 97 mg/dL Normal 65-99 [facility] Comment on above: Result Comment: Fasting reference interval Performed By: #### 1 016, 867 #### [facility] [place] [address] Learning Program Manager: Matt Beasley MD Potassium [Moles/Vol] 5.3 mmol/L Normal 3.5-5.[address] [facility] Comment on above: Performed By: #### 1 164, 867 #### [facility] [place] [address] Learning Program Manager: Matt Beasley MD Protein [Mass/Vol] 6.9 g/dL Normal 6.1-8.1 [facility] Comment on above: Performed By: #### 1 016, 867 #### [facility] [place] [address] Learning Program Manager: Matt Beasley MD Sodium [Moles/Vol] 137 mmol/L Normal 135-146 [facility] Comment on above: Performed By: #### 1 016, 867 #### [facility] [place] [address] Learning Program Manager: Matt Beasley MD Urea nitrogen [Mass/Vol] 25 mg/dL Normal 7-25 [facility] Comment on above: Performed By: #### 1 0165, 867 #### [facility] [address], [address] [place] [address] Learning Program Manager: Matt Beasley MD Urea nitrogen/Creatinine [Mass ratio] 18 mg/mg Normal 6-22 [facility] Comment on above: Performed By: #### 1 0165, 867 #### [facility] [place] [address] Learning Program Manager: Matt Beasley MD LIPID PANEL, [facility] 07-02 Cholesterol [Mass/Vol] 159 mg/dL Normal <200 [facility] Comment on above: Performed By: #### 1 0165, 867 #### [facility] [place] [address] Learning Program Manager: Matt Beasley MD Cholesterol in HDL [Mass/Vol] 63 mg/dL Normal > OR = 50 [facility] Comment on above: Performed By: #### 1 0165, 867 #### [facility] [place] [address] Learning Program Manager: Matt Beasley MD Cholesterol in LDL [Mass/Vol] [...] LDL-C. Sawyer YIP et al. TORY. 2013;310(19): 5762-8516 ([email or web address]/[email or web address]) Performed By: #### 1 0165, 867 #### [place] [address] Learning Program Manager: Matt Beasley MD Cholesterol.total/Cho lesterol in HDL [Mass ratio] 2.5 {ratio} Normal <5.0 [facility] Comment on above: Performed By: #### 1 0165, 867 #### [facility] [address], [address] [place] [address] Learning Program Manager: Matt Beasley MD NON HDL CHOLESTEROL 96 mg/dL (calc) Normal <130 [facility] Comment on above: Result Comment: For patients with diabetes plus 1 major ASCVD risk factor, treating to a non-HDL-C goal of <100 mg/dL (LDL-C of <70 mg/dL) is considered a therapeutic option. Performed By: #### 1 016, 867 #### [facility] [place] [address] Learning Program Manager: Matt Beasley MD Triglyceride [Mass/Vol] 156 mg/dL High <150 [facility] Comment on above: Performed By: #### 1 016, 867 #### [facility] [address] Learning Program Manager: Matt Beasley MD UA w/Reflex Cultureon 2020 Bilirubin, SemiQt,Ur Negative Normal NEG [facility] Comment on above: Performed By: #### U AX, UMICAO #### [employer] [address] [place] [address] [employer] Buffer: Andrew Blakely MD Blood, Urine Negative Normal NEG [facility] Comment on above: Performed By: #### U AX, UMICAO #### [employer] [address] [place] [address] [employer] Buffer: Andrew Blakely MD Clarity (U) CLEAR Normal CLEAR [facility] Comment on above: Performed By: #### U AX, UMICAO #### [email or web address] [address] [place] [address] [employer] Buffer: Andrew Blakely MD Color (U) YELLOW Normal YEL [facility] Comment on above: Performed By: #### U AX, UMICAO #### [facility] [address] [place] [address] [employer] Buffer: Andrew Blakely MD Glucose Ql (U) Negative Normal NEG [facility] Comment on above: Performed By: #### U AX, UMICAO #### [facility] [address] [place] [address] [employer] Buffer: Andrew Blakely MD Ketones Ql (U) Negative Normal NEG [facility] Comment on above: Performed By: #### U AX, UMICAO #### [facility] [address] [place] [address] [employer] Buffer: Andrew Blakely MD Leukocyte esterase Test strip Ql (U) MODERATE Abnormal NEG [facility] Comment on above: Performed By: #### U AX, UMICAO #### [address] [address] [employer] Buffer: Andrew Blakely MD Nitrite,Ur Negative Normal NEG [facility] Comment on above: Performed By: #### U AX, UMICAO #### [facility] [address] [place] [address] [employer]: Andrew Blakely MD PH,Ur 6.5 Normal 5.0-8.0 [facility] Comment on above: Performed By: #### U AX, UMICAO #### [facility] [address] [place] [address] [employer] Buffer: Andrew Blakely MD Protein Ql (U) Negative Normal NEG [facility] Comment on above: Performed By: #### U AX, UMICAO #### [facility] [address] [place] [address] [employer] Buffer: Andrew Blakely MD Spec. [place],Ur 1.006 Normal 1.005-1.030 [facility] Comment on above: Performed By: #### U AX, UMICAO #### [facility] [address] [place] [address] [employer] Buffer: Andrew Blakely MD Urobilinogen,Ur Normal Normal NORM [facility] Comment on above: Performed By: #### U AX, UMICAO #### [facility] [email or web address] [address] [place] [address] [employer] Buffer: Andrew Blakely MD Comment NOT REPORTED Normal [facility] Comment on above: Performed By: #### U AX, UMICAO #### [facility] [email or web address] [address] [place] [address] [employer] Buffer: Andrew Blakely MD Urinalysis,Microon 1 ----- Normal [facility] Comment on above: Performed By: #### U AX, UMICAO #### [facility] [employer] [address] [place] [address] [employer] Buffer: Andrew Blakely MD Bacteria MANY Abnormal NONE [facility] Comment on above: Performed By: #### U AX, UMICAO #### [facility] [employer] [address] [place] [address] [employer] Buffer: Andrew Blakely MD Epithelial cells LM Ql (Urine sed) 0 TO 2 Normal 0-5 [facility] Comment on above: Performed By: #### U AX, UMICAO #### [facility] [address] [place] [address] [employer] Buffer: Andrew Blakely MD Urine RBC's 0 TO 2 Normal 0-2 [facility] Comment on above: Performed By: #### U AX, UMICAO #### [facility] [email or web address] [address] [place] [address] [employer] Buffer: Andrew Blakely MD Urine WBC's 2 TO 5 Normal 0-5 [facility] Comment on above: Performed By: #### U AX, UMICAO #### [facility] [address] [place] [address] [employer]: Andrew Blakely MD Amorphous sediment LM Ql (Urine sed) NOT REPORTED Normal NONE [facility] Comment on above: Performed By: #### U AX, UMICAO #### [facility] [address] [place] [address] [employer] Buffer: Andrew Blakely MD Casts NOT REPORTED Normal 0-2 [facility] Comment on above: Performed By: #### U AX, UMICAO #### [facility] [address] [place] [address]24[address] [employer]: Andrew Blakely MD Crystals LM Nom (Urine sed) NOT REPORTED Normal [facility] Comment on above: Performed By: #### U AX, UMICAO #### [facility] [address] [place] [address] [employer]: Andrew Blakely MD Epithelial, Renal NOT REPORTED Normal 0 [facility] Comment on above: Performed By: #### U AX, UMICAO #### [facility] [address] [place] [id number] Auto Wash Buffer: Andrew Blakely MD Mucus Strands NOT REPORTED Normal NONE [facility] Comment on above: Performed By: #### U AX, UMICAO #### [facility] [address] [place] [id number] [employer] Buffer: Andrew Blakely MD Other Observations NOT REPORTED Normal NREQ [facility] Comment on above: Performed By: #### U AX, UMICAO #### [facility] [address] [place] [id number] [employer] Buffer: Andrew Blakely MD Trichomonas NOT REPORTED Normal NONE [facility] Comment on above: Performed By: #### U AX, UMICAO #### [facility] [address] [place], [place] [id number] [employer] Buffer: Andrew Blakely MD Yeast NOT REPORTED Normal NONE [facility] Comment on above: Performed By: #### U AX, UMICAO #### [facility] [address] [place], [place] [id number] Auto [employer] Buffer: Andrew Blaekly MD Vital Signs Date Time Vital Sign Value Performing Clinician Facility 05-10-2025 11:33-0400 Body height 149.86 cm [facility] 05-10-2025 11:33-0400 Body mass index (BMI) [Ratio] 24.4 kg/m2 [facility] 05-10-2025 11:33-0400 Body weight 54.88 kg [facility] 05-10-2025 11:33-0400 Diastolic blood pressure 62 mm[Hg] [facility] 05-10-2025 11:33-0400 Heart rate 63 /min [facility] 05-10-2025 11:33-0400 Respiratory rate 16 /min [facility] 05-10-2025 11:33-0400 SaO2% (BldA) [Mass fraction] 98 % [facility] 05-10-2025 11:33-0400 Systolic blood pressure 133 mm[Hg] [facility] 01-31-2025 10:33-0500 Body height 139.7 cm Soraida Bethea [employer] Work Phone: [facility] 01-31-2025 10:33-0500 Body mass index (BMI) [Ratio] 27.66 kg/m2 Soraida Lunak [employer] Work Phone: [facility] 01-31-2025 10:33-0500 Body temperature 97.11 [degF] Soraida Lunak [employer] Work Phone: [facility] 01-31-2025 10:33-0500 Body weight 53.98 kg Soraida Bethea [employer] Work Phone: [facility] 01-31-2025 10:33-0500 Diastolic blood pressure 80 mm[Hg] Soraida Bethea [employer] Work Phone: [facility] 01-31-2025 10:33-0500 Systolic blood pressure 136 mm[Hg] Soraida Bethea [employer] Work Phone: [facility] 01-03-2025 10:04-0500 Body mass index (BMI) [Ratio] 24.64 kg/m2 Soraida Bethea [employer] Work Phone: [facility] 01-03-2025 10:04-0500 Body temperature 97.11 [degF] Soraida Bethea [employer] Work Phone: [facility] 01-03-2025 10:04-0500 Body weight 55.34 kg Soraida Bethea [employer] Work Phone: [facility] 01-03-2025 10:04-0500 Diastolic blood pressure 64 mm[Hg] Soraida Bethea [employer] Work Phone: [facility] 01-03-2025 10:04-0500 Systolic blood pressure 122 mm[Hg] Soraida Bethea [employer] Work Phone: [facility] 07-08-2023 11:00-0400 Body height 149.86 cm [employer] Other [employer] Other 07-08-2023 11:00-0400 Body mass index (BMI) [Ratio] 26.17 kg/m2 [employer] Other [employer] Other 07-08-2023 11:00-0400 Body temperature 96.5 [degF] [employer] Other [employer] Other 07-08-2023 11:00-0400 Body weight 58.79 kg [employer] Other [employer] Other 07-08-2023 11:00-0400 Diastolic blood pressure 80 mm[Hg] Aziz Bakhous Other [employer] Other 07-08-2023 11:00-0400 Respiratory rate 18 /min Aziz Bakhous Other [employer] Other 07-08-2023 11:00-0400 SaO2% (BldA) [Mass fraction] 96 % Aziz Bakhous Other [employer] Other 07-08-2023 11:00-0400 Systolic blood pressure 140 mm[Hg] Aziz Bakhous Other [employer] Other 01-21-2023 11:20-0500 Body height 149.86 cm Aziz Bakhous Other [employer] Other 01-21-2023 11:20-0500 Body mass index (BMI) [Ratio] 25.85 kg/m2 Aziz Bakhous Other [employer] Other 01-21-2023 11:20-0500 Body weight 58.06 kg Aziz Bakhous Other [employer] Other 01-21-2023 11:20-0500 Diastolic blood pressure 73 mm[Hg] Aziz Bakhous Other [employer] Other 01-21-2023 11:20-0500 Respiratory rate 18 /min Aziz Bakhous Other [employer] Other 01-21-2023 11:20-0500 SaO2% (BldA) [Mass fraction] 98 % Aziz Bakhous Other [employer] Other 01-21-2023 11:20-0500 Systolic blood pressure 121 mm[Hg] Aziz Bakhous Other [employer] Other 09-17-2022 15:40-0400 Body height 149.86 cm Aziz Bakhous Other [employer] Other 09-17-2022 15:40-0400 Body mass index (BMI) [Ratio] 24.6 kg/m2 Aziz Bakhous Other [employer] Other 09-17-2022 15:40-0400 Body temperature 97.1 [degF] Aziz Bakhous Other [employer] Other 09-17-2022 15:40-0400 Body weight 55.25 kg Aziz Bakhous Other [employer] Other 09-17-2022 15:40-0400 Diastolic blood pressure 78 mm[Hg] Aziz Bakhous Other [employer] Other 09-17-2022 15:40-0400 Respiratory rate 18 /min Aziz Bakhous Other [employer] Other 09-17-2022 15:40-0400 SaO2% (BldA) [Mass fraction] 99 % Aziz Bakhous Other [employer] Other 09-17-2022 15:40-0400 Systolic blood pressure 140 mm[Hg] Aziz Bakhous Other [employer] Other 04-23-2022 15:40-0400 Body height 149.86 cm Albin Englands Other [employer] Other 04-23-2022 15:40-0400 Body mass index (BMI) [Ratio] 22.94 kg/m2 Albin Englands Other [employer] Other 04-23-2022 15:40-0400 Body temperature 96.4 [degF] Albin Englands Other [employer] Other 04-23-2022 15:40-0400 Body weight 51.53 kg Albin Bakhous Other [employer] Other 04-23-2022 15:40-0400 Diastolic blood pressure 82 mm[Hg] Azjulio Erazohous Other [employer] Other 04-23-2022 15:40-0400 Respiratory rate 18 /min Albin Englands Other [employer] Other 04-23-2022 15:40-0400 SaO2% (BldA) [Mass fraction] 99 % Albin Englands Other [employer] Other 04-23-2022 15:40-0400 Systolic blood pressure 149 mm[Hg] Fabioiz Bakhous Other [employer] Other Encounters Encounter Date Encounter Type Care Provider Facility Start: 06-01-2025 End: 06-01-2025 Renetta Bethea NP Work Phone: [facility] Comment on above: Mixed hyperlipidemia Start: 05-16-2025 End: 05-16-2025 ambulatory [facility] Start: 05-10-2025 End: 05-10-2025 ambulatory [facility] Work Phone: Start: 05-10-2025 End: 05-10-2025 Patient encounter procedure [facility] [place] Work Phone: Start: 05-02-2025 Non-patient / Non-visit [facility] [employer] Work Phone: Start: 03-09-2025 End: 03-09-2025 ambulatory IMAN KOLEDA [facility] Start: 03-09-2025 End: 03-09-2025 Subsequent hospital visit by physician [facility] Drawing Room [facility] Comment on above: 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 Start: 01-31-2025 End: 01-31-2025 Bamboo flowsheet Soraida Bethea [employer] Work Phone: [facility] Start: 01-31-2025 End: 01-31-2025 Bamboo flowsheet Soraida Bethea [employer] Work Phone: [facility] Start: 01-31-2025 End: 01-31-2025 Patient encounter procedure Soraida Bethea [employer] Work Phone: [facility] Comment on [...] Chronic obstructive pulmonary disease, unspecified COPD type ([facility]); Type 2 diabetes mellitus with diabetic peripheral angiopathy without gangrene, without long-term current use of insulin ([facility]); Varicose veins of right lower extremity, unspecified [...] 01-17-2025 End: 01-17-2025 Telephone encounter Rochelle Oneil [employer] Work Phone: [facility] Comment on above: Injection Start: 01-17-2025 End: 01-17-2025 Office outpatient visit 25 minutes Rochelle Oneil [employer] Work Phone: [facility] Comment on above: Impingement syndrome of left shoulder (Primary Dx); Arthritis of left acromioclavicular joint; Chronic left shoulder pain Start: 01-17-2025 End: 01-17-2025 ambulatory ROCHELLE ONEIL Not Available Start: 01-03-2025 End: 01-03-2025 Bamboo flowsheet Soraida Bethea [employer] Work Phone: [facility] Start: 01-03-2025 End: 01-03-2025 Bamboo flowsheet Soarida Bethea [employer] Work Phone: [facility] Start: 01-03-2025 End: 01-03-2025 Office outpatient visit 25 minutes Soraida Bethea [employer] Work Phone: [facility] Comment on above: Essential hypertensi on ([facility]) (Primary Dx); Cerumen debris on tympanic membrane [...] Dx) Start: 11-17-2024 End: 11-18-2024 ambulatory SORAIDA BETHEA Not Available Start: 11-10-2024 End: 11-10-[address] [facility] Start: 10-15-2024 End: 10-15-2024 Refill Elmira G Stephanie DO Work Phone: [facility] Comment on above: Primary hypertension (CMS/HCC) Start: 10-01-2024 End: 10-01-2024 Refill Elmira G Stephanie DO Work Phone: [facility] Comment on above: Primary hypertension (CMS/HCC) Start: 09-08-2024 End: 09-08-2024 ambulatory IMAN VALENZUELA [facility] Start: 08-11-2024 End: 08-11-2024 Refill [...] 06-09-2024 ambulatory DIMPLE EASON Not Available Start: 05-26-2024 End: 05-26-2024 ambulatory SORAIDA BETHEA Not Available Start: 04-05-2024 End: 04-05-2024 ambulatory ROCHELLE ONEIL Not Available Start: 01-12-2024 Bamboo flowsheet Soraida Bethea [employer] Work Phone: [facility] Start: 01-12-2024 Bamboo flowsheet Soraida Bethea [employer] Work Phone: [facility] Start: 01-12-2024 Patient encounter procedure Soraida Bethea [employer] Work Phone: [facility] Start: 01-05-2024 End: 01-05-2024 ambulatory Aziz Bakhous Other [employer] Other Start: 01-05-2024 Refill Elmira Daniel DO Work Phone: [facility] Comment on above: 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, without long-term current use of insulin, unspecified CKD stage ([facility]) Start: 01-05-2024 Telephone encounter Aziz Bakhous [facility] Start: 09-10-2023 End: 09-10-2023 ambulatory Aziz Bakhous Other [employer] Other Start: 09-10-2023 Telephone encounter Aziz Bakhous [facility] Start: 07-08-2023 End: 07-08-2023 ambulatory Aziz Bakhous Other [employer] Other Start: 07-08-2023 Office outpatient vi sit 25 minutes Aziz Bakhous [facility] [place] Start: 03-17-2023 End: 03-18-2023 ambulatory DHEERAJ SESAY Facility:[facility]1 Start: 03-12-2023 End: 03-13-2023 ambulatory DHEERAJ SESAY Facility:[facility] Start: 03-10-2023 End: 03-11-[address] ONEL WRIGHT Facility:[facility]1 Start: 02-05-2023 End: 02-06-[address] DOCTOR ALBRIGHT Facility:[facility]1 Start: 01-24-2023 End: 01-24-2023 Subsequent hospital visit by physician Jam Maya MD Work Phone: [facility] Comment on above: History of ovarian c ancer Start: 01-22-2023 End: 01-22-2023 ambulatory Albin Bonner Other [employer] Other Start: 01-22-2023 Telephone encounter Albin Bonner [facility] Start: 01-21-2023 End: 01-21-2023 ambulatory Albin Bonner Other [employer] Other Start: 01-21-2023 Office outpatient vi sit 25 minutes Albin Englands [facility] [place] Start: 01-13-2023 End: 01-13-[address] DOCTOR ALBRIGHT Facility:[facility]1 Start: 01-13-2023 End: 01-14-[address] DOCTOR ALBRIGHT Facility:[facility]1 Start: 11-08-2022 End: 11-08-[address] ZACHARY BOYLE Facility:[facility]1 Start: 09-17-2022 End: 09-17-2022 ambulatory Albin Bonner Other [employer] Other Start: 09-17-2022 Office outpatient vi sit 25 minutes Albin Englands [facility] [place] Start: 09-10-2022 End: 09-11-[address] DOCTOR ALBRIGHT Facility:[facility]1 Start: 08-21-2022 End: 08-22-2022 ambulatory KATHARINA JOVEL Facility:[facility] Start: 07-10-2022 End: 07-10-2022 Subsequent hospital visit by physician Zachary Boyle Work Phone: [facility] Comment on above: 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 Start: 06-05-2022 End: 06-06-[address] ZACHARY BOYLE Facility:[facility]1 Start: 05-29-2022 End: 05-30-[address] ZACHARY BOYLE Facility:[facility]1 Start: 05-06-2022 End: 05-07-[address] ZACHARY BOYLE Facility:[facility]1 Start: 04-23-2022 End: 04-23-2022 ambulatory Aziz [employer] Other [employer] Other Start: 04-23-2022 Office outpatient ne w 30 minutes Aziz Bakhous [facility] Start: 03-27-2022 End: 03-27-2022 Subsequent hospital visit by physician Zachary Boyle Work Phone: [facility] Start: 09-26-2021 End: 09-27-2021 ambulatory ANABEL Juárez [facility] Start: 09-26-2021 End: 09-26-2021 Subsequent hospital visit by physician Zachary Boyle Work Phone: [facility] Comment on above: Borderline epithelia l neoplasm of ovary; Gross hematuria Start: 07-18-2021 End: 07-19-2021 ambulatory ANABEL L [facility] Start: 12-29-2018 End: 01-17-2024 Patient encounter procedure Elmiratran Daniel Work Phone: [facility] Healthcare Procedures Date Procedure Procedure Detail Performing Clinician Start: 03-09-2025 Immunoassay tumor an tigen quantitative ca 125 Iman Valenzuela PA-C Work Phone: Start: 01-17-2025 Arthrocentesis aspir &/inj [...] DTaP/Tdap/Td vaccine (3 - Td or Tdap) [facility] Start: 01-31-2026 Medicare Annual Wellness (AWV) Medicare Annual Wellness (AWV) [facility] Start: 08-01-2025 Influenza vaccination Influenza Vacc ine (#1) [facility] Start: 07-12-2025 Urine screening for protein Diabetes: Urine Protein Screening [facility] Start: 05-30-2025 Influenza vaccination Influenza Vacc ine (#1) [facility] Comment on above: Postponed from 08/01 (Supply/Drug Shortage) Start: 05-03-2025 Hemoglobin A1c measurement Diabetes: Hemoglobin A1C [facility] Start: 03-18-2025 End: 03-18-2025 Patient encounter procedure 03/18/2025 10:30 AM EDT Office Visit [facility] [employer] [facility] [address] [place] [address] Iman Valenzuela PA-C [address] [place] [address] 6mfu [facility] [employer] [facility] [facility] Comment on above: 6mfu Start: 01-31-2025 End: 01-31-2026 Hemoglobin A1c/Hemoglobin.total in Blood Hemoglobin A1c Lab Routine Type 2 diabetes mellitus with chronic kidney disease, without long-term current use of insulin, unspecified CKD stage ([facility]) Expected: 01/31/2025 (Approximate), Expires: 01/31/2026 [facility] Comment on above: Expected: 01/31/2025 (Approximate), Expires: 01/31/2026 Start: 01-31-2025 End: 01-31-2026 Lipid 1996 panel - Serum or Plasma Lipid panel Lab Routine Encounter for annual wellness exam in Medicare patient Mixed hyperlipidemia ([facility]) Expected: 01/31/2025 (Approximate), Expires: 01/31/2026 [facility] Work Phone: Comment on above: Expected: 01/31/2025 (Approximate), Expires: 01/31/2026 Start: 01-31-2025 End: 01-31-2026 TSH W/REFLEX TO FT4 TSH W/REFLEX TO FT4 Lab Routine Encounter for annual wellness exam in Medicare patient Expected: 01/31/2025 (Approximate), Expires: 01/31/2026 [facility] Comment on above: Expected: 01/31/2025 (Approximate), Expires: 01/31/2026 Start: 01-31-2025 End: 01-31-2025 Patient encounter procedure [facility] Comment on above: Arrived Start: 01-17-2025 End: 01-17-2025 Patient encounter procedure 01/17/2025 11:15 AM EST Office Visit [facility] [address] [place] [address] Rochelle Oneil NP [address] [place] [address] [facility] Start: 01-12-2025 Medicare Annual Wellness (AWV) Medicare Annual Wellness (AWV) [facility] Start: 01-03-2025 End: 01-03-2025 Patient encounter procedure [facility] Comment on above: Arrived Start: 12-01-2024 Annual Wellness Visi t (Medicare Advantage) Annual Wellness Visit (Medicare Advantage) [facility] Start: 08-01-2024 COVID-19 Vaccine ( season) COVID-19 Vaccine ( season) Michele Gusman [facility] Start: 08-01-2024 Influenza vaccination Influenza Vacc ine (#1) [facility] Start: 03-17-2024 End: 03-17-2024 Patient encounter procedure 03/17/2024 1:00 PM EDT Office Visit [facility] [address] [place] [phone] [facility] Start: 01-12-2024 End: 01-12-2024 Patient encounter procedure 01/12/2024 11:00 AM EST Office Visit [facility] [address] [place] [phone] Soraida Bethea NP [address] [place] [address] Arrived [facility] Comment on above: Arrived Start: 11-06-2023 Urine screening for protein Diabetes: Urine Protein Screening [facility] Start: 05-08-2023 Hemoglobin A1c measurement Diabetes: Hemoglobin A1C [facility] Start: 01-31-2023 End: 01-31-2023 Patient encounter procedure 01/31/2023 Office Visit Gynecologic Oncology Jam Warren MD [address] [facility] [address] [place] [address] [facility] [employer] [facility] Start: 01-05-2023 Creatinine measurement Creatinine [facility] Start: 01-05-2023 Potassium [Moles/volume] in Serum or Plasma Potassium [facility] Start: 08-01-2022 Influenza vaccination M [facility] Start: 07-17-2022 End: 07-17-2022 Patient encounter procedure 07/17/2022 Office Visit Gynecologic Oncology Jam Warren MD [address] [facility] [address] [place] [address] [facility] [employer] [facility] Start: 07-01-2022 Influenza vaccination Flu vaccine (# 1) [facility] Start: 01-23-2022 End: 01-23-2022 Patient encounter procedure 01/23/2022 Office Visit Gynecologic Oncology Anabel Duncan MD [address] [facility] [address] [place] [address] [phone] [facility] [employer] [facility] Start: 01-02-2022 End: 01-02-2022 Patient encounter procedure 01/02/2022 Office Visit Gynecologic Oncology Anabel Duncan MD [address] [facility] [address] [place] [address] [phone] [facility] [employer] [facility] Start: 08-01-2021 Influenza vaccination Flu vaccine (# 1) [facility] [employer] Phone: Start: 06-12-2021 Annual Wellness Visi t (AWV) Annual Wellness Visit (AWV) [facility] Start: 09-01-2009 Pneumococcal 50+ yea rs Vaccine (2 of 2 - PCV) Pneumococcal 50+ years Vaccine (2 of 2 - PCV) [facility] Start: 09-01-2009 Pneumococcal Vaccine : 65+ Years (2 - PCV) Pneumococcal Vaccine: 65+ Years (2 - PCV) [facility] Start: 09-01-2009 Pneumococcal Vaccine : 65+ Years (2 of 2 - PCV) Pneumococcal Vaccine: 65+ Years (2 of 2 - PCV) [facility] Start: 2003 Pneumococcal 65+ yea rs Vaccine (1 of 1 - PPSV23) Pneumococcal 65+ years Vaccine (1 of 1 - PPSV23) [facility] [employer] Phone: Start: 1993 Screening for osteoporosis DEXA (modify frequency per FRAX score) [facility] Start: 1988 Shingles Vaccine (1 of 2) Shingles Vaccine (1 of 2) [facility] Start: 1957 DTaP/Tdap/Td vaccine (1 - Tdap) DTaP/Tdap/Td vaccine (1 - Tdap) [facility] Start: 1957 Urine screening for protein Diabetes: Urine Protein Screening [facility] Start: 1950 COVID-19 Vaccine (1) COVID-19 Vaccin e (1) [employer] Phone: Start: 1950 Depression Screen Depression Screen [facility] Start: 1948 Glaucoma screening Diabetes: R etinopathy Screening [facility] Start: 1948 Lipid panel [facility] Start: 1944 Pneumococcal 65+ yea rs Vaccine (1 - PCV) Pneumococcal 65+ years Vaccine (1 - PCV) [facility] Start: 1943 COVID-19 Vaccine (1) COVID-19 Vaccin e (1) [facility] [employer] Start: 1938 COVID-19 Vaccine (#1) COVID-19 Vacci ne (#1) [facility] [employer] Start: 1938 Annual Wellness Visi t (AWV) Annual Wellness Visit (AWV) [facility] [employer] Start: 1938 Creatinine measurement Creatinine mo nitoring [employer] Work Phone: Start: 1938 Medicare Annual Wellness (AWV) Medicare Annual Wellness (AWV) [facility] Start: 1938 Potassium monitoring Potassium monit oring [employer] Work Phone: Renal function 2000 panel - Serum or Plasma [facility] Immunizations Immunization Date Immunization Notes Care Provider Fa jeevan 01-10-2025 influenza, high dose seasonal, preservative-free Soraida Bethea [employer] Work Phone: [facility] 01-10-2025 RSV, recombinant, protein subunit RSVpreF, adjuvant reconstitu, 120mcg/0.5mL, PF (Arexvy) Soraida Bethea [employer] Work Phone: [facility] 01-10-2025 influenza virus vaccine, unspecified formulation Soraida Bethea [employer] Work Phone: [facility] 09-15-2023 Influenza, Seasonal, Quadrivalent, Adjuvanted Soraida Bethea [employer] Work Phone: [facility] 09-15-2023 influenza virus vaccine, unspecified formulation Elmira Stephanie DO Work Phone: [facility] 01-13-2023 diphtheria, tetanus toxoids and pertussis vaccine Elmira Stephanie DO Work Phone: [facility] 09-02-2022 Influenza, High-dose Seasonal, Quadrivalent, Preservative Free Elmira Stephanie DO Work Phone: [facility] 10-18-2021 Moderna SARS-CoV-2 Vaccination Elmira Stephanie DO Work Phone: [facility] Work Phone: 10-03-2021 Moderna SARS-CoV-2 Vaccination Soraida Btehea [employer] Work Phone: [facility] 05-11-2021 tetanus toxoid, redu lety diphtheria toxoid, and acellular pertussis vaccine, adsorbed Soraida Turciostrick [employer] Work Phone: [facility] 02-01-2021 Moderna SARS-CoV-2 Vaccination Elmira Stephanie DO Work Phone: [facility] 01-04-2021 Moderna SARS-CoV-2 Vaccination Elmira Stephanie DO Work Phone: [facility] 11-21-2020 Influenza, High-dose Seasonal, Quadrivalent, Preservative Free Soraida Turciostrick [employer] Work Phone: [facility] 09-01-2008 pneumococcal polysaccharide vaccine, 23 valent Soraida Turciostrick [employer] Work Phone: [facility] Payers Date Payer Category Payer Medicare [employer] ADVANTAGE HUMAN MEDICARE [id number] 2021-Present [address] [address] [place] [address] [id number] 2021 Medicare (Managed Care) [facility] ADVANTAGE [id number] 2000 Medicare MEDICARE MEDICAR E PART A AND B [id number] 2000-Present [phone] [place] [address] [id number] 1959 Medicare [id number] 1938 Unknown [id number] 2.16.840.1.537356.3.579. 2.175 1938 Unknown [id number] 2.16.840.1.565530.3.579. 2.175 1938 Unknown [id number] 2.16.840.1.029924.3.579. 2.593 1938 Unknown [id number] 2.16.840.1.410622.3.579. 2.593 1938 Unknown [id number] 2.16.840.1.949500.3.579. 2.593 1938 Unknown [id number] 2.16.840.1.890514.3.579. 2.593 1938 Unknown [id number] 2.16.840.1.876703.3.579. 2.593 1938 Unknown [id number] 2.16.840.1.394757.3.579. 2.593 1938 Unknown [id number] 2.16.840.1.508439.3.579. 2.593 1938 Unknown [id number] 2.16.840.1.350129.3.579. 2.593 1938 Unknown [id number] 2.16.840.1.863902.3.579. 2.593 1938 Unknown [id number] 2.16.840.1.350352.3.579. 2.593 1938 Unknown [id number] 2.16840.1.182573.3.579. 2.593 1938 Unknown [id number] 2.840.1.146719.3.579. 2.593 1938 Unknown [id number] 2.840.1.816578.3.579. 2.593 1938 Unknown [id number] 2.840.1.850073.3.579. 2.593 1938 Unknown [id number] 2.840.1.115263.3.579. 2.125 1938 Unknown [id number] 2.840.1.253154.3.579. 2.125 1938 Unknown [id number] 2.840.1.326720.3.579. 2.125 1938 Unknown [id number] 2.840.1.685047.3.579. 2.125 1938 Unknown [id number] 2.16840.1.409314.3.579. 2.125 1938 Unknown [id number] 2.16.840.1.781522.3.579. 2.125 1938 Unknown [id number] 2.16.840.1.718544.3.579. 2.1259 1938 Unknown [id number] 2.16840.1.535696.3.579. 2.1259 1938 Unknown [id number] 2.16.840.1.780771.3.579. 2.9 1938 Unknown [id number] 2.16.840.1.796888.3.579. 2.9 1938 Unknown [id number] 2.16.840.1.740274.3.579. 2.1258 1938 Unknown [id number] 2.16.840.1.354517.3.579. 2.1259 1938 Unknown [id number] 2.16.840.1.956190.3.579. 2.1258 1938 Unknown [id number] 2.16.840.1.907652.3.579. 2.9 1938 Unknown [id number] 2.16.840.1.215611.3.579. 2.173 1938 Unknown [id number] 2.16.840.1.191526.3.579. 2.173 Social History Date Type Detail Facility Start: 09-26-2021 End: 04-20-2023 Tobacco smoking status [facility] Never smoker [employer] Phone: Start: 09-26-2021 End: 04-20-2023 Tobacco use and exposure Never used [employer] Start: 1940 Sex Assigned At Not on file [employer] Phone: Exposure to SARS-CoV-2 (event) Not sure [employer] Start: 09-08-2023 End: 01-31-2025 Sex Assigned At [facility] Other Start: 12-03-2023 End: 01-31-2025 Alcohol intake Current drinker of alcohol (finding) [facility] Start: 09-08-2023 End: 01-31-2025 History of Social function [facility] Start: 05-10-2023 Alcohol Comment caffeine intak e: none [facility] Start: 06-12-2021 End: 05-10-2025 Sex Female (finding) [facility] Start: 01-04-2025 Tobacco smoking status NHIS Ex-smoker (finding) [facility] Start: 1940 Sex Assigned At Female [facility] NEGATED: Highlighted rowStart: DOUGLAS History of tobacco use Passive smoker [facility] Medical Equipment Procedure Code Equipment Code Equipment Origin al Text Equipment Identifier Dates Check fasting glucose once daily [id number] Start: 08-20-2023 Inject 1 Lancet under the skin in the morning. [id number] Start: 08-20-2023 Clinical Notes 04-23-2022 to 05-16-2025 Soraida Bethea, CHENCHO - 01/31/2025 10:30 AM Yola Oneil, CHENCHO - 01/17/2025 11:15 AM ESTTelephone Encounter - Rochelle Oneil, CHENCHO - 01/17/2025 8:57 AM Jamal Sims MA - 11/17/2024 3:30 PM EST Note Date & Type Note Facility 05-16-2025 Note [facility] Subjective Yesy Rodriguez is a [...] hyperglycemia, without long-term current use of insulin ([facility]) Vitamin D deficiency Family History Problem Relation [...] then discharged. She was evaluated at the [facility] cardiology service and she was planned [...] fibrillation, left an (more content not included)... [facility] 05-03-2025 Note Please let her know there were changes on her recent ECHO. We need to proceed with a follow-up ERIK to further assess her aortic valve. Thanks! [facility] 05-03-2025 Note RVSP has doubled sin ce her last ECHO 6 months ago. Was at 44 now is at 94. 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 She see's you on 05/16/25. Do you want me to order a ERIK, increase lasix, or just wait until you see her? Thanks! [facility] 01-31-2025 History of Present illness Narrative Images [...] tenderness or frontal sinus tenderness. Mouth/Throat: Lips: Diagonal. Mouth: Mucous membranes are moist. Pharynx: Oropharynx [...] complication, without long-term current use of insulin ([facility]/HCC) Aortic atherosclerosis ([facility]) Chronic obstructive pulmonary disease, unspecified COPD type ([facility]) Type 2 diabetes mellitus with diabetic peripheral angiopathy without gangrene, without long-term current use of insulin ([facility]) Varicose veins of right lower extremity, unspecified [...] of left ear documented in this encounter [facility] 01-17-2025 History of Present illness Narrative Associated [...] Use: Not At Risk (11/03/2020) Received from [facility] AUDIT-C Frequency of Alcohol Consumption: Monthly or [...] develop for requiring urgent evaluation. Rochelle Oneil GROUND SUPPORT EQUIPMENT MECHANIC-WATERSHED MANAGER documented in this encounter [facility] 01-17-2025 Telephone encounter Note Yes that's fine [facility] Work Phone: 01-17-2025 Miscellaneous Notes Yes that's fine Patient's niece Lizabeth called stating she had RSV/Flu last week. She wanted to make sure it's still ok to come in today for an injection. documented in this encounter [facility] 01-17-2025 Telephone encounter Note Patient's niece Lizabeth called stating she had RSV/Flu last week. She wanted to make sure it's still ok to come in today for an injection. [facility] 01-03-2025 History of Present illness Narrative Images [...] of both ears- documented in this encounter [facility] 11-17-2024 History of Present illness Narrative Patient [...] 3:48 PM EST documented in this encounter [facility] 11-10-2024 Note [facility] SUBJECTIVE Chief Complaint Patient presents with [...] then discharged. She was evaluated at the [facility] cardiology service and she was planned [...] 3. Moderately elevated right-sided filling pressures. 4. Qvhvlwcl-aq-aewjoe elevation of the left-sided filling pressures. 5. [...] reasonably well from (more content not included)... [facility] 11-10-2024 Note Patient here for 6 m [...] All other systems reviewed and are negative. [facility] 01-05-2024 Evaluation note Encounter Date Diagnosis Assessment Notes Jan, Primary hypertension (ICD-10 - I10) [facility] Other 08-08-2023 Evaluation note* Encounter Date Diagnosis [...] and she follows with cardiology clinic in [place] Jul, Diabetes type 2, no ocular involvement [...] - R31.9) follows with urology clinic in [facility] Other 02-22-2023 Evaluation note* Encounter Date Diagnosis Assessment Notes Treatment Notes Treatment Clinical Notes Jan, Hyperkalemia (ICD-10 - E87.5) [facility] Other 02-21-2023 Evaluation note* Encounter Date Diagnosis [...] and she follows with cardiology clinic in [place] Jan, Diabetes type 2, no ocular involvement [...] handout of high K food at avoid. [facility] Other 10-18-2022 Evaluation note* Encounter Date Diagnosis [...] and she follows with cardiology clinic in [place] Aug, Diabetes type 2, no ocular involvement [...] I will continue to monitor uric acid. [facility] Other 05-24-2022 Evaluation note* Encounter Date Diagnosis [...] and she follows with cardiology clinic in [place] March, Diabetes type 2, no ocular involvement (ICD-10 - E11.9) Patient used to be on metformin but was stopped due to worsening kidney function. Patient said her diabetes well controlled. 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 documented in this encounter [employer] Phone: [email or web address] note* Diagnosis History of ovarian cancer Personal history of malignant neoplasm of ovary documented in this encounter [employer] Phone: [email or web address] noteNo [facility] Other Evaluation note* Diagnosis Type 2 diabetes mellitus with chronic kidney disease, without long-term current use of insulin, unspecified CKD stage ([facility]) documented in this encounter [facility]* Diagnosis Primary hypertension ([facility]) Unspecified essential hypertension documented in this encounter [facility] note* Diagnosis Mixed hyperlipidemia ([facility]) Mixed hyperlipidemia documented in this encounter [facility]* Diagnosis Mixed conductive and sensorineural hearing loss of right ear with restricted hearing of left ear- Primary documented in this encounter [facility]* Diagnosis Type 2 diabetes mellitus with chronic kidney disease, without long-term current use of insulin, unspecified CKD stage ([facility]) documented in this encounter [facility]* Diagnosis Essential hypertension (CMS/HCC)- Primary Unspecified essential hypertension Cerumen debris on tympanic membrane of both ears documented in this encounter [facility]* Diagnosis Impingement syndrome of left shoulder- Primary 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 Pain in joint, shoulder region documented in this encounter [facility]* Diagnosis Encounter for annual wellness exam in Medicare patient- Primary Chronic heart failure, unspecified heart failure type (CMS/HCC) Essential hypertension (CMS/HCC) Unspecified essential hypertension Mixed hyperlipidemia (CMS/HCC) Mixed hyperlipidemia Permanent atrial fibrillation (CMS/HCC) Atrial fibrillation Pulmonary hypertension (CMS/HCC) 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 (HCC) ([facility]) Type 2 diabetes mellitus with chronic kidney disease, without long-term current use of insulin, unspecified CKD stage (CMS/HCC) Longstanding persistent atrial fibrillation (CMS/HCC) Acute diastolic heart failure (CMS/HCC) Acute diastolic heart failure Chronic diastolic heart failure ([facility]) Chronic diastolic heart failure Malignant neoplasm of ovary, unspecified laterality (CMS/HCC) Type 2 diabetes mellitus without complication, without long-term current use of insulin (CMS/HCC) Aortic atherosclerosis ([facility]CC) Atherosclerosis of aorta Chronic obstructive pulmonary disease, unspecified COPD type ([facility]) Type 2 diabetes mellitus with diabetic peripheral angiopathy without gangrene, without long-term current use of insulin ([facility]/HCC) Varicose veins of right lower extremity, unspecified [...] of left ear documented in this encounter [facility] Healthcare[facility] note* 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 documented in this encounter [facility] Diagnosis Onset Date Resolution Status Admit Date Chronic congestive heart failure acu te May 10, 2025 11:28am Hyperkalemia acute May 10 11:28am Hypertensive nephropathy acute May 10, 2025 11:28am Hyperuricemia acute May 10, 2025 11:28am Stage 3b chronic kidney disease acut e May 10, 2025 11:28am Type 2 diabetes mellitus acute May 10, 2025 11:28am Vitamin D deficiency acute May 10, 2025 11:28am [facility] Work Phone: Evaluation note* Diagnosis Mixed [...] REMOVAL OF OVARIES Hospitalization History SEE ABOVE [facility] Other Summary Purpose Family History No Family History Records Found Relationship Condition Age at Onset Recorded Date/T westley brother Unknown Heart disease Unknown Malignant neoplasm Unknown father Unknown History of stroke Unknown family member Unknown mother Heart disease Unknown Unknown Advance Directives No Advanced Directives Records Found Advance Directive Response Recorded Date/ Time Advance [...] section and content) DATE CREATED AUTHOR 09/27/2021 [facility] DATE CREATED AUTHOR AUTHOR'S ORGANIZ ATION 01/22/2022 [facility] DATE CREATED AUTHOR AUTHOR'S ORGANIZ ATION 02/18/2022 [facility] DATE CREATED AUTHOR AUTHOR'S ORGANIZ ATION 06/11/2022 [facility] DATE CREATED AUTHOR AUTHOR'S ORGANIZ ATION 10/14/2022 [facility] dical Specialist DATE CREATED AUTHOR AUTHOR'S ORGANIZ ATION 03/20/2023 [facility] DATE CREATED AUTHOR AUTHOR'S ORGANIZ ATION 02/01/2025 [facility] dical Specialists EPIC DATE CREATED AUTHOR AUTHOR'S ORGANIZ ATION 03/11/2025 [facility] DATE CREATED AUTHOR AUTHOR'S ORGANIZ ATION 07/28/2025 [facility] Care Teams (unrecognized sec tion and content) Slots Manager Relationship Specialty Start Date End Date Zachary Boyle [address] [place] [address] PCP - General Family Medicine 09/26/21 Slots Manager Relationship Specialty [place] [address] [place], [place] [id number] PCP - General Gynecological Oncology 07/17/22 Slots Manager Relationship Specialty Start Date End Date Elmira Daniel DO [address] [place] [address] PCP - [employer] 05/31/21 Elmira Daniel DO [address] [place] [address] PCP - General Family Medicine 04/09/23 Slots Manager Relationship Specialty Start Date End Date Elmira Daniel DO [address] [place] [address] PCP - [employer] 05/31/21 Lexy Mei MD [address] [place] [address] PCP - General Family Medicine 01/12/24 Soraida Bethea NP [address] [place] [address] Nurse Practitioner Family Medicine 01/12/24 Slots Manager Relationship Specialty Start Date End Date Elmira Daniel AidanDO [address] [place] [address] PCP - [employer] 05/31/21 Lexy Mei MD [address] [place] [address] PCP - General Family Medicine 01/12/24 Soraida Bethea NP [address] [place] [address] Nurse Practitioner Family Medicine 01/12/24 Slots Manager Relationship Specialty Start Date End Date Elmira Daniel DO [address] [place] [address] PCP - [employer] 05/31/21 Lexy Mei MD [address] [place] [address] PCP - General Family Medicine 01/12/24 Soraida Bethea NP [address] [place] [address] Nurse Practitioner Family Medicine 01/12/24 Slots Manager Relationship Specialty Start Date End Date Elmira Daniel DO [address] [place] [address] PCP - [employer] 05/31/21 Lexy Mei MD [address] [place] [address] PCP - General Family Medicine 01/12/24 Soraida Bethea NP [address] [place] [address] Nurse Practitioner Family Medicine 01/12/24 Slots Manager Relationship Specialty Start Date End Date Elmira Daniel DO [address] [place] [address] PCP - [employer] 05/31/21 Lexy Mei MD [address] [place] [address] PCP - General Family Medicine 01/12/24 Soraida Bethea NP [address] [place] [address] Nurse Practitioner Family Medicine 01/12/24 Slots Manager Relationship Specialty Start Date End Date Elmira Daniel DO [address] [place] [address] PCP - [employer] 05/31/21 Lexy Mei MD [address] [place] [address] PCP - General Family Medicine 01/12/24 Soraida Bethea NP [address] [place] [address] Nurse Practitioner Family Medicine 01/12/24 Slots Manager Relationship Specialty Start Date End Date Elmira Daniel DO [address] [place] [address] PCP - [employer] 05/31/21 Lexy Mei MD [address] [facility] [place] [address] PCP - General Family Medicine 01/12/24 Soraida Bethea NP [address] [facility] [place] [address] Nurse Practitioner Family Medicine 01/12/24 Slots Manager Relationship Specialty Start Date End Date Elmira Daniel DO [address] [place] [address] PCP - [facility] 05/31/21 Lexy Mei MD [address] [place] [address] PCP - General Family Medicine 01/12/24 Soraida Bethea NP [address] [facility] [place] [address] Nurse Practitioner Family Medicine 01/12/24 Slots Manager Relationship Specialty Start Date End Date Elmira Daniel DO [address] [place] [address] PCP - General 02/28/23 Team Status: Active Member Role Status Dates PENG CaraballoC Primary Care Provider Activ e Team Status: Active Member Role Status Dates PENG CaraballoC Primary Care Provider Activ e Start: May 02, 2025 Albin Bonner MD Attending Provider Active Star t: May 02, 2025 Team Status: Inactive Member Role Status Dates PENG CaraballoC Primary Care Provider Activ e Start: May 10, 2025 End: May 10, 2025 Albin Bonner MD Attending Provider Active Star t: May 10, 2025 End: May 10, 2025 Slots Manager Relationship Specialty Start Date End Date Elmira Daniel DO [address] [facility] [address] [place] [phone] PCP - [employer] 05/31/21 Lexy Mei MD [address] [facility] [place] [address] PCP - General Family Medicine 01/12/24 Soraida Bethea NP [address] [facility] [place], [place] [id number] Nurse Practitioner Family Medicine 01/12/24 REASON FOR [...] BE BASED ON THE PRIMARY CLINICAL RECORDS. [employer] provides no warranty or guarantee of the accuracy or completeness of information in this document.
--- OUTSIDE RECORDS SUMMARY | 2025-07-29 07:10 | XMS_ITS | Encounter Summary ---
Author Organization [facility] Address [address] [place] [address] Care Team Providers Care Fire Protection Equipment Technician Name Role Phone Stephanie, Elmira G Unavailable [phone] Elmira Brown Aidan Primary Care Provider [phone] Kim Santiago LPN Unavailable [phone] Lexy Mei MD Primary Care Provider [phone] Soraida Bethea MANAGER CLIENT Unavailable [phone] Reason for Referral * Imaging (Routine) - Closed Specialty Diagnoses / Procedures Referred By Maureen reyes Referred To Contact Radiology Diagnoses Conductive hearing loss, bilateral Procedures MR brain w and wo contrast IACs Juan Jackson DO [address] [place] [address] Phone: tel: fax: [facility] [address] [place] [facility] [place] [address] Phone: tel: fax: Referral ID Status Reason Start Date Expiration Date Visits Re quested Visits Authorized [id number] Closed 04/21/2023 10/18/2023 1 1 Encounter Details Date Type Department Care Team (Late st Contact Info) Description 04/21/2023 Orders Only [facility] [address] [place] [address] Jimy Rader MA Conductive hearing loss, bilateral (Primary Dx) [...] MR BRAIN W AND WO CONTRAST (IACS) [id number] HISTORY: Conductive hearing loss, bilateral. Left ear [...] visualized facial bones appear normal. Procedure Note oJsé Antonio Krishna MD - 05/05/2023 EXAM: MR BRAIN W AND WO CONTRAST (IACS) [id number] HISTORY: Conductive hearing loss, bilateral. Left ear [...] bilateral documented in this encounter Care Teams Fire Protection Equipment Technician Relationship Specialty Start Date End Date Elmira Brown DO [address] [facility] [address] [place] [address] PCP - [employer] 05/31/21 Elmira Brown DO [address] [facility] [address] [place] [address] PCP - General Family Medicine 04/09/23 01/11/24 Lexy Mei MD [address] [place] [address] PCP - General Family Medicine 01/12/24 Kim Santiago LPN Licensed Practical Nurse Family Medicine 12/24/2312/03 Soraida Bethea NP [address] [place], [place] [phone] Nurse Practitioner Family Medicine 01/12/24 documented as of this encounter
--- OUTSIDE RECORDS SUMMARY | 2025-07-29 07:10 | XMS_ITS ---
Author Name Interface, [id number] luan Address [address] [place] [address] Organization [facility] [employer] [facility] Address [address] [place] [address] Allergies and Adverse Reactions Plan Reason for Visit Encounters Medications Problems
--- OUTSIDE RECORDS SUMMARY | 2025-07-29 07:11 | XMS_ITS | Encounter Summary ---
Author Organization [facility] [employer] [facility] Address [id number] [place] [address] Care Team Providers Care Hat Blocker Name Role Phone Zachary Ware DO Primary Care Provider [phone] Reason for Visit * Reason Comments Med Refill Encounter Details Date Type Department Care Team (Late st Contact Info) Description 09/21/2022 Refill [facility] Internal Medicine - Family Medicine [address] [place] [address] Zachary Ware DO [address] [employer] [facility] [place] [address] Social History Tobacco Use Types Packs/Day Years [...] on filedocumented in this encounter Care Teams Hat Blocker Relationship Specialty Start Date End Date Zachary Ware DO [address] [facility] [place] [address] PCP - General Family Medicine 08/17/21 documented as of this encounter
--- OUTSIDE RECORDS SUMMARY | 2025-07-29 07:11 | XMS_ITS | Encounter Summary ---
Author Organization [facility] Address [address] [place] [address] Care Team Providers Care Underground Miner Name Role Phone Soraida Bethea REFRIGERATION REPAIR SUPERVISOR Primary Care Provider Encounter Details Date Type Department Care Team (Late st Contact Info) Description 07/26/2025 Telephone [facility] [address] [place] [address] Mandi Wong MA Social History Tobacco Use Types Packs/Day Years Used Date Smoking Tobacco: Former Cigarettes Passive Smoke Exposure: Past Smokeless Tobacco: Never Alcohol Use Standard Drinks/Week Comments Yes 0 (1 standard drink = 0.6 oz pur e alcohol) occasional social [employer] Answer Date Rec orded Fear of Current or Ex-Partner Not on file Emotionally Abused Not on file 01/22/2024 Physically Abused Not on file 01/22/2024 Sexually Abused Not on file 01/22/2024 Physically or Sexually Abused Not on file Comments Unknown Sex and Gender Information Value Date Recorded Sex Assigned at Not on file Legal Sex Female 12:42 AM EDT Gender Identity Not on file Sexual Orientation Not on file documented as of this encounter Miscellaneous Notes * Telephone Encounter - Mandi Wong MA - 07/26/2025 3:43 PM EDT Phone call from patients mariama Barone. Per [...] understanding and agreed with plan of care. documented in this encounter Plan of Treatment Upcoming Encounters Date Type Department Care Team (Late st Contact Info) Description 08/22/2025 11:00 AM EDT Office Visit [facility] [address] [place] [address] Corbin Wright MD [address] [facility] [place] [address] documented as of this encounter Visit Diagnoses Not on filedocumented in this encounter Care Teams Underground Miner Relationship Specialty Start Date End Date Soraida Bethea NP [address] [place] [address] PCP - General Internal Medicine 05/27/24 documented as of this encounter
--- OUTSIDE RECORDS SUMMARY | 2025-07-29 07:11 | XMS_ITS | Encounter Summary ---
Author Organization [facility] [employer] Sy tem Address [id number] [address] [place] [address] Care Team Providers Care Actuarial Science Professor Name Role Phone Zachary Ware DO Primary Care Provider [phone] Reason for Visit * Reason Comments Med Refill Encounter Details Date Type Department Care Team (Late st Contact Info) Description 06/15/2023 Refill [facility] - Family Medicine [address] [place] [address] Zachary Ware DO [email or web address] [facility] [address] Social History Tobacco Use Types Packs/Day Years [...] on filedocumented in this encounter Care Teams Actuarial Science Professor Relationship Specialty Start Date End Date Zachary Ware DO [address] [facility] [address] PCP - General Family Medicine 08/17/21 documented as of this encounter
--- OUTSIDE RECORDS SUMMARY | 2025-07-29 07:11 | XMS_ITS | Encounter Summary ---
Author Organization [employer] [facility] tem Address [id number] [address] [place] [address] Care Team Providers Care Bond Underwriter Name Role Phone Zachary Ware DO Primary Care Provider + [phone] Reason for Visit * Reason Comments Med Refill Encounter Details Date Type Department Care Team (Late st Contact Info) Description 12/13/2022 Refill [facility] - Family Medicine [address] [place] [address] Zachary Ware DO [address], [facility] [place] [address] Social History Tobacco Use Types Packs/Day Years [...] on filedocumented in this encounter Care Teams Bond Underwriter Relationship Specialty Start Date End Date Zachary Ware DO [address], [place] [address] PCP - General Family Medicine 08/17/21 documented as of this encounter
--- OUTSIDE RECORDS SUMMARY | 2025-07-29 07:11 | XMS_ITS | Encounter Summary ---
Author Organization [facility] tem Address [id number] [address] [place] [address] Care Team Providers Care Gin Feeder Name Role Phone Zachary Ware DO Primary Care Provider [phone] Encounter Details Date Type Department Care Team (Late st Contact Info) Description 08/26/2022 Orders Only [facility] - Family Medicine [address] [place] [address] External, Scanning Provider Social History [...] on filedocumented in this encounter Care Teams Gin Feeder Relationship Specialty Start Date End Date Zachary Ware DO [address], [address] [place], [place] [id number] PCP - General Family Medicine 08/17/21 documented as of this encounter
--- OUTSIDE RECORDS SUMMARY | 2025-07-29 07:11 | XMS_ITS | Encounter Summary ---
Author Organization [facility] [employer] Sy tem Address [id number] [address] [place] [address] Care Team Providers Care Photo Technician Name Role Phone Zachary Ware DO Primary Care Provider + [phone] Reason for Visit * Reason Comments Med Refill Encounter Details Date Type Department Care Team (Late st Contact Info) Description 2023 Refill [facility] - Family Medicine [address] [place] [address] Zachary Ware DO [address]Ge.tt [facility] [place] [address] Social History Tobacco Use Types Packs/Day Years [...] on filedocumented in this encounter Care Teams Photo Technician Relationship Specialty Start Date End Date Zachary Ware DO [address] [facility] [place] [address] PCP - General Family Medicine 08/17/21 documented as of this encounter
--- OUTSIDE RECORDS SUMMARY | 2025-07-29 07:11 | XMS_ITS | Encounter Summary ---
Author Organization [facility] Address [address], [address] [place] [address] Care Team Providers Care Industrial Psychology Teacher Name Role Phone Elmira Brown DO Primary Care Provider Unavailabl e Reason for Referral * Other (Routine) - Closed Specialty Diagnoses / Procedures Referred By Contac t Referred To Contact Pulmonary Function Testing Diagnoses SOB (shortness of breath) Procedures Full PFT Study With Bronchodilator Corbin Wright MD [address] [place] [address] Phone: tel: fax: Referral ID Status Reason Start Date Expiration Date Visits Re quested Visits Authorized [id number] Closed 12/28/2021 12/28/2022 1 1 Encounter Details Date Type Department Care Team (Late Contact Info) Description 12/28/2021 Transcribe Orders [facility] [address] [place] [address] oCrbin Wright MD [address] [place] [address] SOB (shortness of breath) (Primary [...] Care Team (Late st Contact Info) Description 09/23/2025 11:30 AM EDT Office Visit [facility] GRID OPERATOR Oncology [address] [place] [address] Theresa Valenzuela PA-C [address] [facility] [address] [place] [address] r/s for 09/16/2025,...6 month follow up psc/sc Scheduled Orders Name Type Priority Associated Diagnoses [...] documented as of this encounter Care Teams Industrial Psychology Teacher Relationship Specialty Start Date End Date Elmira Brown DO PCP - General 02/28/23 documented as of this encounter
--- OUTSIDE RECORDS SUMMARY | 2025-07-29 07:11 | XMS_ITS ---
Author Name Interface, [id number] Address [address] [place] [address] Organization [employer] , [facility] Address [address] [place] [address] Allergies and Adverse Reactions Plan Reason for Visit Encounters Diagnostic Results Medications Problems Vital Signs
--- OUTSIDE RECORDS SUMMARY | 2025-07-29 07:11 | XMS_ITS | Encounter Summary ---
Author Organization [facility] Address [address] [place] [address] Care Team Providers Care Gospel Worker Name Role Phone Lexy Mei MD Primary Care Provider Elmira Brown DO Primary Care Provider [phone] Soraida Bethea NP Primary Care Provider Reason for Visit * Reason Comments Med Refill Encounter Details Date Type Department Care Team (Late st Contact Info) Description 04/14/2023 Refill [facility] [address] [place] [address] Latosha Sesay CNP [address] [facility] [place] [address] Paroxysmal atrial fibrillation (CMS/HCC) Social History Tobacco Use Types Packs/Day Years Used Date Smoking Tobacco: Former Cigarettes Smokeless Tobacco: Never Alcohol Use Standard Drinks/Week Comments Yes 0 (1 standard drink = 0.6 oz pur e alcohol) occasional social Comments Unknown Sex and Gender Information Value [...] Description 08/22/2025 11:00 AM EDT Office Visit [facility] [address] [place] [address] Corbin Wright MD [address] [facility] [place] [address] documented as of this encounter Visit Diagnoses Diagnosis Paroxysmal atrial fibrillation (CMS/HCC) Atrial fibrillation documented in this encounter Care Teams Gospel Worker Relationship Specialty Start Date End Date Lexy Mei MD PCP - General 09/06/22 09/09/23 Elmira Brown DO PCP - General Family Medicine 09/10/23 05/26/24 Soraida Bethea NP [address] [place] [address] PCP - General Internal Medicine 05/27/24 documented as of this encounter
--- OUTSIDE RECORDS SUMMARY | 2025-07-29 07:11 | XMS_ITS | Encounter Summary ---
Author Organization [facility] [employer] Sy tem Address [id number] [address] [place] [address] Care Team Providers Care Drain Technician Name Role Phone Zachary Ware DO Primary Care Provider [phone] Reason for Visit * Reason Comments Med Refill Encounter Details Date Type Department Care Team (Late st Contact Info) Description 05/19/2023 Refill [facility] - Family Medicine [address] [place] [address] Zachary Ware DO [email or web address] [facility] [place] [address] Social History Tobacco Use Types Packs/Day Years [...] on filedocumented in this encounter Care Teams Drain Technician Relationship Specialty Start Date End Date Zachary Ware DO [address] [place] [address] PCP - General Family Medicine 08/17/21 documented as of this encounter
--- OUTSIDE RECORDS SUMMARY | 2025-07-29 07:11 | XMS_ITS | Clinical Summary ---
Author Organization [facility] Address [address] [place] [address] Care Team Providers Care Maintainer Operator Name Role Phone Soraida Bethea NP Primary Care Provider Allergies No known active allergies Medications amLODIPine (Norvasc) 5 mg tablet Take 1 tablet by mouth in the morning. Active anastrozole (Arimidex) 1 mg chemo tablet Take 1 tablet every day by oral route for 90 days. Active atorvastatin (Lipitor) 10 mg tablet Take 1 tablet every day by oral route for 90 days. Active benazepril (Lotensin) 10 mg tablet Take 1 tablet by mouth in the morning. Active metoprolol succinate XL (Toprol-XL) 200 mg 24 hr tablet Take 1 tablet every day by oral route for 90 days. Active SITagliptin (Januvia) 50 mg tablet Take 1 tablet by mouth in the morning. Active cholecalciferol, vitamin D3, 10 mcg (400 unit) capsule Take by mouth in the morning. Active docusate sodium (Colace) 100 mg capsule 1 capsule in the morning. Active latanoprost (Xalatan) 0.005 % ophthalmic solution 3 Active furosemide (Lasix) 40 mg tablet Take 40 mg by mouth in the morning. Taking 40mg in the AM, and 20mg in the PM 1 Active apixaban (Eliquis) 2.5 mg tabletIndications :Paroxysmal atrial fibrillation (CMS/HCC) Take 1 tablet (2.5 mg) by mouth two times daily. 180 tablet 3 4 11/10/20 25 Active Jardiance 10 mgIndications:Con gestive heart failure, unspecified HF chronicity, unspecified heart failure type (CMS/HCC) TAKE 1 TABLET EVERY MORNING 90 tablet 3 5 Active Active Problems Problem Noted Date Diagnosed Date Hyperkalemia 11/10/2024 Hypertensive nephropathy 11/10/2024 Hyperuricemia 11/10/2024 Vitamin D deficiency 11/10/2024 Acquired absence of both cervix and uterus 04/09 Acquired absence of ovaries, bilateral Bilateral hearing loss 04/09/2023 Memory impairment 04/09/2023 Mixed conductive and sensori neural hearing loss of right ear with restricted hearing of left ear 04/09/2023 Permanent atrial fibrillation 04/09/2023 Pulmonary hypertension 04/09/2023 Borderline epithelial neoplasm of ovary 03/12/20 23 Noninflammatory disorder of vulva and perineum, unspecified 03/12/2023 Primary hypertension 02/28/2023 Longstanding persistent atrial fibrillation 05/2022 Chronic diastolic heart failure 12/28/2021 Assessment & Plan (08/14/2022 2:59 PM EDT): NYHC II, currently euvolemic without exacerbation Continue GDMT- lasix 40 mg, spironolactone 25 mg Continue daily weights, fluid restrictions, and low sodium diet. Call office for concerns- weight gain, increased shortness of breath, orthopnea or leg swelling. 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 Chronic obstructive pulmonary disease 04/04/2021 Serous cystadenoma of left ovary 11/21/2020 Aortic atherosclerosis 10/27/2020 Overview (05/27/2024): Noted on CXR 10/03/20 Noted on CXR 10/03/20 Noted on CXR 10/03/20 Noted on CXR 10/03/20 Type 2 diabetes mellitus wit h diabetic peripheral angiopathy without gangrene 04/28/2020 Overview (05/27/2024): Has PAD - per coding guidelines Has PAD - per coding guidelines Has PAD - per coding guidelines Has PAD - per coding guidelines Type 2 diabetes mellitus wit h hyperglycemia, without long-term current use of insulin 04/28/2020 Overview (11/10/2024): Lab review- A1c 8.2 on 07/13/19 Well woman exam without gynecological exam 12/29 Varicose veins of right lower extremity 09/11/20 17 Arm pain, anterior, right 02/22/2016 Left shoulder tendonitis 02/22/2016 Low back pain 04/20/2015 Lumbar disc narrowing 04/20/2015 Lumbar radiculopathy, acute 04/20/2015 Spondylolisthesis of lumbar region 04/20/2015 Encounters Date Type Department Care Team Description 07/26/2025 Telephone [facility] [address] [place] [id number] Mandi Wong MA 06/14/2025 Refill [facility] [address] [place] [facility] [place] [address] Latosha Sesay CNP Congestive heart failure, unspecified HF chronicity, unspecified heart failure type (CMS/HCC) 05/17/[address] [place] [address] Mandi Wong MA 05/16/2025 10:00 AM EDT Office Visit [address] [place] [address] Corbin Wright MD Nonrheumatic aortic valve stenosis (Primary Dx); Chronic diastolic heart failure (CMS/HCC); Longstanding persistent atrial fibrillation (CMS/HCC); Nonrheumatic mitral valve regurgitation; Nonrheumatic mitral (valve) stenosis; Primary hypertension; Coronary artery disease involving [place] coronary artery of [place] heart without angina pectoris; Stage 3 chronic kidney disease, unspecified whether stage 3a or 3b CKD (CMS/HCC); Pulmonary hypertension (CMS/HCC) 05/13/2025 Orders Only [address] [place] [address] Myles Perera MD 05/04/2025 Orders Only [address] [place] [address] Myles Perera MD 05/03/2025 Orders Only [address] [place] [address] Myles Perera MD 05/02/2025 Orders Only [address] [place] [address] Latosha Sesay CNP Nonrheumatic aortic (valve) stenosis from Last 3 Months Immunizations Immunization Administration Dates Next Due Moderna SARS-CoV-2 Vaccination 10/18/2021,2020,02/01/2021,01/04/2021 Family History Medical History Relation Name Comments Heart attack Brother Heart attack Mother Relation Name Status Comments Brother Father Mother Social History Tobacco Use Types Packs/Day Years Used Date Smoking Tobacco: Former Cigarettes Passive Smoke Exposure: Past Smokeless Tobacco: Never Tobacco Cessation:Counseling Given: Not Answered Alcohol Use Standard Drinks/Week Comments Yes 0 [...] Sign Reading Time Taken Comments Blood Pressure 123/66 05/16/2025 9:45 AM EDT Pulse 58 05/16/2025 9:45 AM EDT Temperature - - Respiratory Rate - - Oxygen Saturation 98% 05/16/2025 9:45 AM EDT Inhaled Oxygen Concentration - - Weight 54.9 kg (121 lb) 05/16/2025 9:45 AM EDT Height 149.9 cm (4' 11 ) 05/16/2025 9:45 AM EDT Body Mass Index 24.44 05/16/2025 9:45 AM EDT Plan of Treatment Upcoming Encounters Date Type Department Care Team (Late st Contact Info) Description 08/22/2025 11:00 AM EDT Office Visit [facility] [address] [place] [address] Corbin Wright MD [address] [facility] [place] [address] Health Maintenance Due Date Last Done Comments Medicare Annual Wellness (AWV) 1940 Diabetes: Retinopathy Screening 1948 Depression Screening 1950 Diabetes: Urine Protein Screening 1957 Zoster Vaccines (1 of 2) 1988 Fall Risk Screening 2003 Pneumococcal Vaccine: 50+ Years (2 of 2 - PCV) 09/01/2009 09/01/2008 COVID-19 Vaccine ( season) 2024 10/18/2021, 10/18/2021, 10/03/2021, Additional history exists Diabetes: Hemoglobin A1C 05/03/2025 01/31/2025, 03/0 07/2023 Influenza Vaccine (#1) 2025 , 09/15/2023, 09/02/2022, Additional history exists Adult Tetanus 05/11/2031 05/11/2021 HIB Vaccines Aged Out No longer eligi ble based on patient's age to complete this topic HPV Vaccines Aged Out No longer eligi ble based on patient's age to complete this topic IPV Vaccines Aged Out No longer eligi ble based on patient's age to complete this topic Meningococcal B Vaccine Aged Out No l onger eligible based on patient's age to complete this topic Meningococcal Vaccine Aged Out No vandana leena eligible based on patient's age to complete this topic Rotavirus Vaccines Aged Out No longer eligible based on patient's age to complete this topic Procedures Procedure Name Priority Date/Time Associated Diagnosis Comments LIPID PANEL Routine 05/04/2025 11:38 AM EDT CBC Routine 05/02/2025 10:06 AM EDT MAGNESIUM Routine 05/02/2025 10:06 AM EDT BASIC METABOLIC PANEL Routine 05/02/2025 10:06 AM EDT COMPLETE TRANSTHORACIC ECHO (TTE) W/WO IMAGING AGENT, STRAIN, 3D, BUBBLE STUDY Routine 05/02/2025 9:36 AM EDT from Last 3 Months Results * Lipid panel (05/04/2025 11:38 AM EDT) Blood Venous blood specimen / Unknown us Historical Provider LAB BLOOD ORDERABLES Charlene l Result * CBC (05/02/2025 10:06 AM EDT) Blood Venous blood specimen / Unknown us Historical Provider LAB BLOOD ORDERABLES Charlene l Result * Magnesium (05/02/2025 10:06 AM EDT) Blood Venous blood specimen / Unknown Result [facility] Provider LAB BLOOD ORDERABLES Charlene l Result * Basic metabolic panel (05/02/2025 10:06 AM EDT) Blood Venous blood specimen / Unknown Result [facility] Provider LAB BLOOD ORDERABLES Charlene l Result * Complete Echo (TTE) w/wo Imaging Agent, Strain, 3D, Bubble Study (05/02/2025 9:36 AM EDT) Anatomical Region Laterality Modality Ultrasound Result [facility] Provider CV ECHO PROCEDURES Final Result from Last 3 Months Insurance [employer] MEDICARE ADVANTAGE Advance Directives Documents on File Type Date Recorded Patient Quantity Surveyor Expl anation Power of Bioinformatics Computer Scientist 04/11/2023 7:15 PM power deputy prosecuting attorney Care Teams Maintainer Operator Relationship Specialty Start Date End Date Soraida Bethea NP [address] [place] [address] PCP - General Internal Medicine 05/27/24
--- OUTSIDE RECORDS SUMMARY | 2025-07-29 07:11 | XMS_ITS | Encounter Summary ---
Author Organization [facility] tem Address [id number] [address] [place] [address] Care Team Providers Care Agency Sales Development Associate Name Role Phone Zachary Ware DO Primary Care Provider + [phone] Encounter Details Date Type Department Care Team (Late st Contact Info) Description 11/13/2022 [facility] Only [facility] [address] [place] [address] External, Scanning Provider Social History [...] on filedocumented in this encounter Care Teams Agency Sales Development Associate Relationship Specialty Start Date End Date Zachary Ware DO [address], [place] [address] PCP - General Family Medicine 08/17/21 documented as of this encounter
--- OUTSIDE RECORDS SUMMARY | 2025-07-29 07:11 | XMS_ITS | Clinical Summary ---
Author Organization [facility] Address [address], [address] [place] [address] Care Team Providers Care Marketing Rotation Associate Name Role Phone Elmira Brown DO Primary Care Provider Unavailabl e Allergies No known active allergies Medications benazepril [...] MG-MCG CHEWIndication s:At risk for bone density loss,manager intermediate (current) use of aromatase inhibitors Take 2 [...] Encounters Date Type Department Care Team Description 05/24/2025 Telephone [facility] Gynecologic Oncology Services [address] [facility] [address] [facility] [address] [place] [address] Theresa Valenzuela PA-C Reschedule from Last 3 Months Social History Tobacco [...] Description 09/23/2025 11:30 AM EDT Office Visit [facility] GREEN BUILDING ENERGY ENGINEER Oncology [address] [place] [address] Theresa Valenzuela PA-C [address] [facility] [address] [place], [place] [id number] r/s for 09/16/2025,...6 month follow up psc/sc Health Maintenance Due Date Last Done Comments Lipids 1948 Depression Screen 1950 Shingles vaccine (1 of 2) 1988 Pneumococcal 50+ years Vaccine (2 of 2 - PCV) 09/01/2009 09/01/2008 COVID-19 Vaccine ( season) 2024 10/18/2021, 10/03/2021, 02/01/2021, Additional history exists Annual Wellness Visit (Medicare Advantage) 12/01/2024 Flu vaccine (#1) 07/01/2025 01/10/2025, , 09/02/2022, Additional history exists DTaP/Tdap/Td vaccine (3 - Td or Tdap) 01/13/2033 01/13/2023, 05/11/2021 Respiratory Syncytial Virus (RSV) or age 60 [...] 03/15/2025 At risk for bone density loss [facility] (current) use of aromatase inhibitors from Last 3 Months or Most Recently Relevant to Health Maintenance Results * DEXA BONE DENSITY AXIAL SKELETON (03/15/2025) Anatomical Region Laterality Modality Head, C-spine, T-spine, L-spine, Chest Other Theresa Valenzuela PA-C IMG DEXA ORDERABLES Final Res ult from Last 3 Months or Most Recently Relevant to Health Maintenance Insurance [employer] MED[employer]ARE Care Teams Marketing Rotation Associate Relationship Specialty Start Date End Date Elmira Brown DO PCP - General 02/28/23
--- OUTSIDE RECORDS SUMMARY | 2025-07-29 07:11 | XMS_ITS | Encounter Summary ---
Author Organization [facility] [facility] tem Address [id number] [place] [address] Care Team Providers Care Education Professional Name Role Phone Zachary Ware DO Primary Care Provider [phone] Reason for Visit * Reason Comments Med Refill Encounter Details Date Type Department Care Team (Late st Contact Info) Description 01/17/2023 Refill [facility] Medicine - Family Medicine [address] [place] [address] Zachary Ware DO [address] [place] [address] Essential (primary) hypertension Social History Tobacco Use [...] hypertension documented in this encounter Care Teams Education Professional Relationship Specialty Start Date End Date Zachary Ware DO [address] CASHShawnaFandeavor [facility] [place] [address] PCP - General Family Medicine 08/17/21 documented as of this encounter
--- OUTSIDE RECORDS SUMMARY | 2025-07-29 07:11 | XMS_ITS | Encounter Summary ---
Author Organization [facility] tem Address [id number] [address] [place] [address] Care Team Providers Care Engraver Steel Plate Name Role Phone Zachary Ware DO Primary Care Provider + [phone] Encounter Details Date Type Department Care Team (Late st Contact Info) Description 09/18/2022 Orders Only [facility] [address] [place] [address] External, Scanning Provider Social History [...] labs (09/10/2022) 09/10/2022 us Scanning Provider External AR IMAGING Final Result MANUALLY TRANSCRIBED RESULTS documented in this encounter Visit Diagnoses Not on filedocumented in this encounter Care Teams Engraver Steel Plate Relationship Specialty Start Date End Date Zachary Ware DO [address], [place] [address] PCP - General Family Medicine 08/17/21 documented as of this encounter
--- OUTSIDE RECORDS SUMMARY | 2025-07-29 07:11 | XMS_ITS | Clinical Summary ---
Author Organization [facility] Healthcare Address [address] [place] [address] Care Team Providers Care Funding Specialist Name Role Phone Elmira Brown DO Unavailable [phone] Lexy Mei MD Primary Care Provider [phone] Soraida Bethea PAINT PREP TECHNICIAN Unavailable [phone] Allergies No known active allergies Medications anastrozole [...] use of insulin, unspecified CKD stage (HCC) Inject 1 Lancet under the skin in the morning. 100 each 3 08/20/20 23 Active glucose blood (True Metrix Blood Glucose Test) test stripIndications:T ype 2 diabetes mellitus with chronic kidney disease, without long-term current use of insulin, unspecified CKD stage (HCC) Check fasting glucose once daily 100 strip 3 08/20/20 23 Active empagliflozin (Jardiance) 10 MG Take 10 mg by mouth in the morning. 01/06/20 24 Active amLODIPine (Norvasc) 5 MG tabletIndications: Primary hypertension TAKE 1 TABLET EVERY DAY 90 tablet 3 10/01/20 24 Active benazepril (Lotensin) 10 MG tabletIndications: Primary hypertension TAKE 1 TABLET EVERY DAY 90 tablet 3 10/15/20 24 Active SITagliptin (Januvia) 50 MG tabletIndications: Type 2 diabetes mellitus with chronic kidney disease, without long-term current use of insulin, unspecified CKD stage (HCC) Take 1 tablet (50 mg) by mouth Daily 90 tablet 3 02/01/20 25 Active metoprolol succinate XL (Toprol-XL) 200 MG 24 hr tabletIndications: Primary hypertension TAKE 1 TABLET EVERY DAY 90 tablet 3 05/23/20 25 Active atorvastatin (Lipitor) 10 MG tabletIndications: Mixed hyperlipidemia TAKE 1 TABLET EVERY DAY 90 tablet 3 06/01/20 25 Active Active Problems Problem Noted Date [...] hypertension 04/09/2023 Stage 3b chronic kidney disease 04/09/2023 Type 2 diabetes mellitus wit h diabetic chronic kidney disease 04/09/2023 Borderline epithelial neoplasm of ovary 03/12/20 23 Longstanding persistent atrial fibrillation 05/2022 Chronic diastolic heart failure 12/28/2021 Overview (05/11/2023): Last Assessment & Plan: [facility] II, currently euvolemic without exacerbation Continue GDMT- [...] 04/09/2023 01/17/2024 Stage 3a chronic kidney disease 04/09/2023 01/17/2024 Tear of left supraspinatus tendon 04/09/2023 01/17/2024 Noninflammatory disorder of vulva and perineum, unspecified 03/12/2023 01/17/2024 Primary hypertension 02/28/2023 024 Hypertensive disorder 12/28/20212023 Hyperlipidemia 12/28/2021 01/17/2024 Overview (05/11/2023): Last Assessment & Plan: Continue lipitor 10 mg daily Stage 3 chronic kidney disease 12/28/2021 01/17/2024 Heart failure 10/16/2021 01/17/2024 Gross hematuria 09/26/2021 01/17/2024 Postmenopausal bleeding 09/26/202101/01 Well woman exam without gynecological exam 12/29/2018 01/17/2024 Arm pain, anterior, right 02/22/2016 Left shoulder tendonitis 02/22/2016 Low back pain 04/20/2015 01/17/2024 Lumbar disc narrowing 04/20/20152023 Lumbar radiculopathy, acute 04/20/2015 01/17/2024 Encounters Date Type Department Care Team Description 07/21/2025 Refill [facility] Medicine [address] [place] [address] Soraida Bethea NP Primary hypertension 06/01/2025 Refill [facility] [address] [facility] [place] [address] Soraida Bethea NP Mixed hyperlipidemia 05/22/2025 Refill [facility] [address] [place] [address] Soraida Bethea NP Primary hypertension from Last 3 Months Immunizations Immunization Administration [...] 05/03/2025 025, 02/05/2023, 11/06/2022, Additional history exists Influenza Vaccine (#1) 2025 5, 09/15/2023, 09/02/2022, Additional history exists Medicare Annual Wellness (AWV) 01/31/2026 0 01/31/2025, 01/31/2025, 01/12/2024, Additional history exists Procedures Procedure Name Priority Date/Time Associated Diagnosis Comments HEMOGLOBIN A1C Routine 01/31/2025 11:03 AM EST Type 2 diabetes mellitus with chronic kidney disease, without long-term current use of insulin, unspecified CKD stage (HCC) from Last 3 Months or Most Recently Relevant to Health Maintenance Results * (ABNORMAL) Hemoglobin A1c (01/31/2025 11:03 AM [...] Performing Organization Information Site ID: [id number] Name: [facility] Address: [address] [place] [address], [address] [place] [id number] Director: Matt Beasley MD Soraida Bethea NP LAB BLOOD ORDERABLES Fi nal Result [facility]ST from Last 3 Months or Most Recently Relevant to Health Maintenance Insurance [facility] MEDICARE ADVANTAGE Care Teams Funding Specialist Relationship Specialty Start Date End Date Elmira Brown DO [address] [facility] [address] [place] [id number] PCP - [employer] 05/31/21 Lexy Mei MD [address] [place] [address] PCP - General Family Medicine 01/12/24 Soraida Bethea NP [address] [place], [place] [id number] Nurse Practitioner Family Medicine 01/12/24
--- OUTSIDE RECORDS SUMMARY | 2025-07-29 07:11 | XMS_ITS | Encounter Summary ---
Author Organization [facility] [employer] Address [id number] [address] [place] [address] Care Team Providers Care Professor Of Violin Name Role Phone Zachary Ware DO Primary Care Provider [phone] Reason for Visit * Reason Comments Med Refill Encounter Details Date Type Department Care Team (Late st Contact Info) Description 10/12/2022 Refill [facility] - Family Medicine [address] [place] [address] Zachary Ware DO [address] [facility] [place] [address] Social History Tobacco Use Types Packs/Day Years [...] on filedocumented in this encounter Care Teams Professor Of Violin Relationship Specialty Start Date End Date Zachary Ware DO [address] [facility] [place] [address] PCP - General Family Medicine 08/17/21 documented as of this encounter
--- OUTSIDE RECORDS SUMMARY | 2025-07-29 07:11 | XMS_ITS | Encounter Summary ---
Author Organization [facility] [employer] Address [id number] [address] [place] [address] Care Team Providers Care Certified Registered Nurse Anesthetist Name Role Phone Zachary Ware DO Primary Care Provider [phone] Reason for Visit * Reason Comments Med Refill Encounter Details Date Type Department Care Team (Late st Contact Info) Description 10/11/2022 Refill [facility] - Family Medicine [address] [place] [address] Zachary Ware DO [address] [facility] [place] [address] Social History Tobacco Use Types Packs/Day Years [...] filedocumented in this encounter Care Teams Certified Registered Nurse Anesthetist Relationship Specialty Start Date End Date Zachary Ware DO [address] [facility] [place] [address] PCP - General Family Medicine 08/17/21 documented as of this encounter
--- OUTSIDE RECORDS SUMMARY | 2025-07-29 07:11 | XMS_ITS | CCD ---
Author Name Interface, [id number] luan Address [address] [place] [address] Organization [facility] Address [id number] [place] [address] Care Team Providers Care Wireless Field Technician Name Role Phone Mitch Hansen DO Unavailable Unavailable Allergies and Adverse Reactions Reason for Visit Problems Social History
--- OUTSIDE RECORDS SUMMARY | 2025-07-29 07:11 | XMS_ITS | Clinical Summary ---
Author Organization [employer] Address [id number] [address] [place] [address] Care Team Providers Care Peripheral Edp Equipment Operator Name Role Phone JeanieZachary Primary Care Provider [phone] Allergies No known active allergies Medications amLODIPine [...] on file Insurance [employer] MEDICARE Care Teams Peripheral Edp Equipment Operator Relationship Specialty Start Date End Date Zachary Ware DO [address] [facility] [place] [address] PCP - General Family Medicine 08/17/21
== END 2025-07-29 07:08 | disposition home or self-care (01) ==
LOC: CARD 07:07
PROVIDERS: PCP Nurse Practitioner Family; Visit Provider Internal Medicine Interventional Cardiology
DX: I35.0 Nonrheumatic aortic (valve) stenosis (principal); I50.32 Chronic diastolic (congestive) heart failure; I34.0 Nonrheumatic mitral (valve) insufficiency; I34.2 Nonrheumatic mitral (valve) stenosis; I27.20 Pulmonary hypertension, unspecified
CPT/HCPCS: 93306

== ENCOUNTER 2025-08-31 09:08 | Outpatient (OUT) | payer MEDICARE, SELFPAY ==
--- OUTSIDE RECORDS SUMMARY | 2025-08-22 10:49 | XMS_ITS ---
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 Name Role Phone ALBA PRADO Attending UnavailROCHELLE Gutierres Attending Unavailable ALBA PRADO Attending ALBA Torres Attending Unavailab abbe OSEGUERA, IMAN Referring Unavailable FREDY, NADEEM Primary Care Unavailable OUMAR, IMAN Referring Unavailable FREDY, NADEEM Primary Care Unavailable DHEERAJ SESAY Attending Unavailable ONEL WALTERS Attending Unavailable ONEL WALTERS Attending Unavailable PROBLEMS DATE TYPE CONDITION / CODE ATTENDING STATUS [facility] 08/22/2025 Admitting Diagnosis Atherosclerotic heart disease of [place] coronary artery with other forms of angina pectoris / I25.118(ICD-10) ONEL WALTERS [facility] 05/27/2024 Admitting Diagnosis Pulmonary hypertension, unspecified / I27.20(ICD-10) ONEL WALTERS [facility] 03/12/2023 Admitting Diagnosis Essential (primary) hypertension / I10(ICD-10) ONEL WALTERS [facility] 09/06/2022 Admitting Diagnosis Longstanding persistent atrial fibrillation / I48.11(ICD-10) [facility] Admitting Diagnosis Chronic diastolic (congestive) heart failure / I50.32(ICD-10) [facility]22 Admitting Diagnosis Chronic kidney disease, stage 3 unspecified / N18.30(ICD-10) [facility]16[facility]25 Admitting Diagnosis Nonrheumatic mitral (valve) insufficiency / I34.0(ICD-10) [facility] 05/16/2025 Admitting Diagnosis Nonrheumatic mitral (valve) stenosis / I34.2(ICD-10) 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) [facility] 08/03/2022 Admitting Diagnosis Mixed hyperlipidemia / E78.2(ICD-10) DHEERAJ SESAY [facility] 11/10/2024 Admitting Diagnosis Paroxysmal atrial fibrillation / I48.0(ICD-10) DHEERAJ SESAY [facility] 11/10/2024 Admitting Diagnosis Nonrheumatic aortic (valve) stenosis / I35.0(ICD-10) DHEERAJ SESAY [facility] 09/08/2024 Unknown Encounter for screening for nutritional disorder / Z13.21(ICD-10) [facility] 09/08/2024 Unknown Age-related osteoporosis without current pathological fracture / M81.0(ICD-10) [facility] PROCEDURES No Procedure Records Found RESULTS OFFICE VISIT Observed: 08/22/2025 11:00 AM Status: COMPLETED Source: [facility] [id number] Yesy Rodriguez F Date Provider Department Center 08/22/2025 ONEL JONES [facility] Family History Problem Relation Age of Onset Heart attack Mother Heart attack Brother Family Status - Relation Status Age at Mother Father Brother Level of Service:31474 NM OFFICE/OUTPATIENT ESTABLISHED HIGH MDM 40 MIN PROGRESS Observed: 08/22/2025 11:00 AM Status: COMPLETED Source: [facility] Cardiology - [facility] Subjective Yesy Rodriguez is a 85 y.o. year old female patient being seen for 3 mo follow up with ECHO. Patient states she has been feeling off and on. Patient states she has been to the [facility] ER quite a bit with chest pain. Patient was given Ranexa but has run out of them, patient states they did help. Patient Active Problem List Diagnosis Chronic diastolic [...] hyperglycemia, without long-term current use of insulin (CMS/HCC) Vitamin D deficiency Family History Problem Relation Name Age of Onset Heart attack Mother Heart attack Brother Social History Tobacco Use Smoking status: Former Types: Cigarettes Passive exposure: Past Smokeless tobacco: Never Substance Use Topics Alcohol use: Yes Comment: occasional social Drug use: Never [facility] Visit of 12/28/2021: Yesy is seen as a new patient. She is here to establish care and to proceed with work-up of her valvular heart disease and diastolic heart failure. She is an 81-year-old woman who moved from [place] in May 2021. She is known to [...] then discharged. She was evaluated at the [facility] cardiology service and she was [...] 3. Moderately elevated right-sided filling pressures. 4. Vtdgzowz-sa-tdasqm elevation of the left-sided filling pressures. 5. [...] she has been doing reasonably well from a cardiac perspective. She denies chest pain and shortness of breath. No palpitations. No dizziness or lightheadedness. She has mild lower extremity edema. Her main issue today is neck pain that has been chronic and is followed by her PCP. She cannot move her neck without pain. Visit of 05/16/2025: She is seen in follow-up. Today's visit is to follow-up on her recent echocardiogram that showed further progression of her valvular disease and significant progression of pulmonary hypertension. She reports that she has been relatively okay except that she feels tired and does not have the same energy she used to have before. She has no clear shortness of breath, chest pain and no syncope. She continues to take same medications as prescribed before. Recent blood testing shows stable to improved renal function. Visit of 08/22/2025: she is seen in follow-up. On 07/28/2025 she was evaluated in emergency room with chest pain. Troponin was negative. Ranexa was added. Echocardiogram on 07/29/2025 showed severe aortic valve stenosis and mitral regurgitation that is moderate. RVSP was 52 mmHg. Today she reports that she has shortness of breath on exertion NYHA class II-III symptoms. No significant lower extremity edema. She is ready to proceed with workup for aortic valve replacement. Review of Systems Constitutional: Positive for malaise/fatigue. Cardiovascular: Positive for chest pain and dyspnea on exertion. Objective Visit Vitals BP 138/57 (BP Location: Right arm, Patient Position: Sitting) Pulse 71 Ht 1.499 m (4' 11 ) Wt 53.1 kg (117 lb) SpO2 98% BMI 23.63 kg/m??? Smoking Status Former BSA 1.49 m??? Physical Exam Constitutional: Appearance: She is well-developed. She is not ill-appearing. Comments: Thin appearing HENT: Head: Normocephalic and atraumatic. Nose: Nose normal. Eyes: General: No scleral icterus. Pupils: Pupils are equal, round, and reactive to light. Neck: Thyroid: No thyromegaly. Vascular: No JVD. Cardiovascular: Rate and Rhythm: Normal rate. Rhythm irregularly irregular. Heart sounds: Murmur heard. Systolic (RUSB, Byron) murmur is present with a grade of 4/6. No friction rub. No gallop. Pulmonary: Effort: Pulmonary effort is normal. No respiratory distress. Breath sounds: Normal breath sounds. No wheezing or rales. Chest: Chest wall: No tenderness. Abdominal: General: Bowel sounds are normal. There is no distension. Palpations: Abdomen is soft. Tenderness: There is no abdominal tenderness. Musculoskeletal: General: No swelling. Cervical back: Neck supple. Right lower le+ Pitting Edema present. Left lower le+ Pitting Edema present. Skin: General: Skin is warm and dry. Neurological: General: No focal deficit present. Mental Status: She is alert and oriented to person, place, and time. Psychiatric: Mood and Affect: Mood normal. Behavior: Behavior is cooperative. Judgment: Judgment normal. Allergies No Known Allergies Medications Current Outpatient Medications: amLODIPine (Norvasc) 5 mg tablet, Take 1 tablet by mouth in the morning., Disp: , Rfl: anastrozole (Arimidex) 1 mg chemo tablet, Take 1 tablet every day by oral route for 90 days., Disp: , Rfl: apixaban (Eliquis) 2.5 mg tablet, Take 1 tablet (2.5 mg) by mouth two times daily., Disp: 180 tablet, Rfl: 3 atorvastatin (Lipitor) 10 mg tablet, Take 1 tablet every day by oral route for 90 days., Disp: , Rfl: benazepril (Lotensin) 10 mg tablet, Take 1 tablet by mouth in the morning., Disp: , Rfl: cholecalciferol, vitamin D3, 10 mcg (400 unit) capsule, Take by mouth in the morning., Disp: , Rfl: docusate sodium (Colace) 100 mg capsule, 1 capsule in the morning., Disp: , Rfl: furosemide (Lasix) 40 mg tablet, Take 40 mg by mouth in the morning. Taking 40mg in the AM, and 20mg in the PM, Disp: , Rfl: Jardiance 10 mg, TAKE 1 TABLET EVERY MORNING, Disp: 90 tablet, Rfl: 3 latanoprost (Xalatan) 0.005 % ophthalmic solution, , Disp: , Rfl: metoprolol succinate XL (Toprol-XL) 200 mg 24 hr tablet, Take 1 tablet every day by oral route for 90 days., Disp: , Rfl: SITagliptin (Januvia) 50 mg tablet, Take 1 tablet by mouth in the morning., Disp: , Rfl: ranolazine (Ranexa) 500 mg 12 hr tablet, Take 1 tablet (500 mg) by mouth two times daily. Do not crush, chew, or split., Disp: 180 tablet, Rfl: 3 Recent Labs No visits with results within 6 Month(s) from this visit. Latest known visit with results is: [facility] Encounter on 01/17/2022 Component Date Value Glucose POC 01/17/2022 109 (H) Blood testing 07/28/2025: Hemoglobin 14.1, platelets 260, potassium 3.8, BUN 43, creatinine 1.65, eGFR 29, LFTs normal, troponin a high-sensitivity 15.4. Blood testing 05/04/2025: Triglycerides 92, cholesterol 156, HDL 61, LDL 77. Blood testing 05/02/2025: Hemoglobin 13.8, platelets 241, potassium 4.1, BUN 37, creatinine 1.45, EGFR 34. Blood testing 02/23/2024: Potassium 4.1, BUN 64, creatinine 1.91, EGFR 25. 09/08/23: Cr. 1.37, BUN 51, K 4.1, Na 139, eGFR 37, NTproBNP: 4343 04/23/2023: Cr. 1.35, BUN 32, K 3.7, Na 144, eGFR 37, BNP 2951 BMP 03/17/2023: Cr. 1.87, BUN 67, K 4.6, Na 139, eGFR 26 03/12/2023: Cr. 1.55, BUN 49, K 3.9, GFR 32, Na 142, NTproBNP: 3283, D-dimer 1.34 BMP 02/05/2023: Cr. 1.04, BUN 33, K 4.5, GFR 50 CMP 01/13/2023: Cr. 1.48, BUN 42, K 5.7, GFR 34, ALT 43, AST 30 09/10/2022: CBC: hgb 13.5, plt 287, Cr. 1.55, BUN 42, K 3.9, Na 139, GFR 32, ALT 47, AST 23 05/06/2022: Cr. 1.51, BUN 40, K 5.1, Na 139, GFR 33 BMP 01/16/2022: BUN 48, creatinine 1.27, potassium 4.0. Creatinine 01/17/2022: 1.04. Blood testing 11/30/2021: BUN 28, creatinine 1.18, GFR 44, potassium 4.2. Blood testing 11/17/2021: Hematocrit 29.6, hemoglobin 9.8, platelets 223, BMP 915, potassium 3.7, BUN 34, creatinine 1.42. Troponin 0 0.03. Imaging and other tests Echocardiogram 07/29/2025: CONCLUSION: Normal left ventricular systolic function without of motion abnormalities, ejection fraction 65% Unable to evaluate left ventricular diastolic function due to presence of mitral valve disease Normal right ventricular size with reduced systolic function Moderate pulmonary hypertension, RVSP 52 mmHg Mild mitral stenosis Moderate mitral regurgitation Severe low-flow low gradient aortic valve stenosis Mild aortic insufficiency Mild tricuspid regurgitation ECG 07/28/2025: Atrial fibrillation with aberrant conduction or ventricular premature complexes, abnormal left axis deviation, consistent with pulmonary disease, abnormal ECG. Echocardiogram 05/02/2025: 1. Mild concentric left ventricular hypertrophy with normal systolic function. LVEF is estimated at 60 to 65%. 2. Normal right ventricular size and systolic function. 3. Moderate to severe biatrial dilatation. 4. Severe low-flow low gradient aortic valve stenosis with mild regurgitation. DVI 0.24, WISAM 0.6 cm???. 5. Moderate mitral stenosis and moderate regurgitation. 6. Mild tricuspid regurgitation. 7. Severely elevated right-sided pressures RVSP is 94 mmHg. ECHO 11/01/2024 CONCLUSION: 1. Normal ventricular systolic function. LVEF is 60%. 2. Moderate severe biatrial dilatation. 3. Moderate to severe aortic valve stenosis. 4. Moderate mitral valve stenosis and regurgitation. 5. Mildly elevated right-sided pressures. Echocardiogram 05/03/2024: Global left ventricular systolic function is normal, estimated ejection fraction is 55 to 60%. Normal right ventricular size and systolic function. Biatrial enlargement. Mild to moderate tricuspid regurgitation. Moderate to severe mitral regurgitation. Mild mitral valve stenosis. Mild to moderate aortic valve stenosis. DVI 0.3 is consistent with moderate stenosis. Mild aortic valve regurgitation. RVSP 29 mmHg. Echocardiogram 10/08/2023: CONCLUSION: 1. Global left ventricular systolic function is normal; visually estimated ejection fraction is 60 to 65% 2. Biatrial enlargement 3. The right ventricle is normal in size and systolic function 4. Mild to moderate tricuspid regurgitation 5. Right ventricular systolic pressure is moderately elevated; RVSP 45 mmHg 6. Mitral valve stenosis is suspected; unable to assess severity 7. Moderate to severe mitral regurgitation 8. Aortic valve stenosis; Doppler velocity suggests mild to moderate aortic valve stenosis. Severe aortic stenosis is suggested by the DVI of 0.20 and aortic valve area of 0.4 cm??. 9. Mild aortic valve regurgitation 10. Trivial pericardial effusion ECHO (03/10/2023) Normal ventricular systolic function, LVEF 60-65% Moderate to severe biatrial dilatation Moderate to severe aortic stenosis Moderate MR Mild TR Moderately elevated right sided pressures, RVSP 57 Echocardiogram 08/21/2022: Normal ventricular systolic function, LVEF is 65%, severe aortic valve stenosis, DVI 0.22, mean gradient 15 mmHg, WISAM by VTI 0.6 cm???, LV stroke-volume 39 mL. Doppler velocities suggest paradoxical low-flow low gradient aortic stenosis, moderate mitral regurgitation, mild tricuspid regurgitation, moderately elevated right-sided pressures, RVSP 46 mmHg, severe left atrial enlargement, no pericardial effusion. If clinically indicated a transesophageal echocardiogram can provide better assessment of the aortic valve. Echocardiogram 06/05/2022: Normal ventricular systolic function, LVEF is 65%, moderate aortic valve stenosis with mild regurgitation, mild mitral stenosis with moderate regurgitation, mild tricuspid regurgitation, moderate to severe biatrial dilatation, moderately elevated right-sided pressures, RVSP 55 mmHg, no pericardial effusion. DVI 0.27, aortic valve area 1 cm???, mean gradient 21 mmHg, peak velocity 3.2 m/s. Carotid duplex ultrasound 01/21/2022: No hemodynamically significant [...] 3. Moderately elevated right-sided filling pressures. 4. Mknxvprh-kg-rgcxds elevation of the left-sided filling pressures. 5. Preserved cardiac output and cardiac index. 6. Moderate to severe mitral valve stenosis. 7. Moderate aortic valve stenosis. ERIK 01/16/2022: LV systolic function is normal, EF 55%, normal RV systolic function. Moderate mitral regurgitation and moderate mitral valve stenosis, mild aortic valve regurgitation moderate aortic valve stenosis. CT angiogram of the chest 10/16/2021: No evidence of filling defects in the pulmonary circulation. Jean Carlos calcifications noted. Echocardiogram 08/30/2021: LV systolic function is 60-65%, concentric hypertrophy without segmental wall motion abnormalities, aortic valvular disease including severe stenosis with mild regurgitation, mitral valvular disease with moderate stenosis and moderate regurgitation, tricuspid regurgitation moderate, mild to moderate pulmonary hypertension Assessment/Plan Diagnoses and all orders for this visit: Nonrheumatic aortic valve stenosis - Basic metabolic panel; Future - CBC and differential; Future - Case Request Flower Buncher Or Picker: Coronary angiography, Right heart cath - Transesophageal echo (ERIK); Future - Ambulatory referral to Cardiothoracic Surgery; Future Chronic diastolic heart failure (CMS/HCC) - Case Request Flower Buncher Or Picker: Coronary angiography, Right heart cath Longstanding persistent atrial fibrillation (CMS/HCC) Nonrheumatic mitral valve regurgitation - Transesophageal echo (ERIK); Future Nonrheumatic mitral (valve) stenosis - Transesophageal echo (ERIK); Future Pulmonary hypertension (CMS/HCC) Primary hypertension 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 Do not crush, chew, or split. - Case Request Flower Buncher Or Picker: Coronary angiography, Right heart cath Stage 3 chronic kidney disease, unspecified whether stage 3a or 3b CKD (CMS/HCC) Yesy is 85 year-old woman with significant mixed valvular disease, including mitral stenosis with regurgitation and aortic stenosis with regurgitation. Her left ventricular systolic function is preserved. In 2021 ERIK and cardiac catheterization evaluation showed her aortic valve stenosis continues to be moderate at that time. Recently by echocardiography she has had progression of aortic valve stenosis to severe. The mitral regurgitation appears to be moderate. She has been having heart failure symptoms and angina and required evaluation in the emergency room on 07/28/2025. At this time I am recommending proceeding with full evaluation for aortic valve replacement. I had a long discussion with her regarding the management of her severe stage D3 symptomatic aortic valve stenosis. I discussed with her that this condition leads to limited long-term survival. I indicated to her that aortic valve replacement is recommended. I discussed TAVR and SAVR including the risks and benefits of both modalities. In particular I went over TAVR procedure in details. I discussed the potential risks with TAVR including stroke, ND, and . I also discussed the risk of requiring permanent pacemaker after TAVR. In addition I indicated that there is a small chance of needing to convert to open surgical procedure due to any complications during or after TAVR procedure. In my opinion, I think that she is a higher risk patient for SAVR and is better served by TAVR. I explained to her that we will proceed with full evaluation including CT scans for assessment of the aortic annulus, ascending aorta as well as the aortoiliac conduits. I will refer her to cardiothoracic surgery for opinion. I will schedule cardiac catheterization with right heart catheterization and coronary angiography. I will also schedule a transesophageal echocardiogram for further assessment of the aortic and mitral valve disease. I told her that once the workup is completed we will have a multidisciplinary discussion between interventional cardiology and cardiothoracic surgery regarding the best recommended treatment option and this option will be presented to her. she understands and agrees to proceed with the above. Continue Eliquis 2.5 mg twice daily for atrial fibrillation. No aspirin given Eliquis therapy and advanced age. Eliquis will have to be held 2 days prior to the cardiac catheterization procedure. Spironolactone was stopped due to hyperkalemia in the past. She is currently on Jardiance. Her renal function May and July 2025 shows renal function stable to improved. 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 We will limit use of contrast with the above procedures to the minimum possible. Follow-up after the above procedures. No follow-ups on file. Onel Walters MD ORDERS ONLY Observed: 08/22/2025 12:00 AM Status: COMPLETED Source: [facility] [id number] Yesy Rodriguez [birth year] Date Provider Department Center 08/22/2025 [id number] Family History Problem Relation Age of Onset Heart attack Mother Heart attack Brother Family Status - Relation Status Age at Mother Father Brother 36 Observed: 08/15/2025 9:05 AM Status: COMPLETED Source: [facility] Niece call and stated the ER gave Yesy Castorenaexdevika for angina pain per niece she is out of them, would you like these refilled? She was only given 20 1 in the am 1 in pm. Yesy has a follow up appointment with you on 08/22/2025. Please advise. ORDERS ONLY Observed: 08/02/2025 12:00 AM Status: COMPLETED Source: [facility] [id number] Yesy Rodriguez J [birth year] Date Provider Department Center 08/02/2025 [id number], [facility] CARD [facility] Family History Problem Relation Age of Onset Heart attack Mother Heart attack Brother Family Status - Relation Status Age at Mother Father Brother 36 Observed: 07/26/2025 3:43 PM Status: COMPLETED Source: [facility] Phone call from patients juliana Barone. Per Lizabeth patient had chest pain [...] understanding and agreed with plan of care. 34 Observed: 05/17/2025 9:20 AM Status: COMPLETED Source: [facility] Patient janusz would like you to stop Yesy's driving due to her possible passing out and her test coming back worse. Janusz would like here re-evaluated in August. Please advise. MD Mandi Anderson MA Caller: Unspecified (Yesterday, 9:20 AM) 05/17/2025 - Patient Call: You and Onel Walters MD (Newest Message First) View All Conversations on this Encounter Onel Walters MD to Me (Selected Message) GM 05/17/25 9:48 PM Sure, no driving for her until I see her next. Advised niece Lizabeth good. TELEPHONE Observed: 05/17/2025 12:00 AM Status: COMPLETED Source: [facility] [id number] MichaelYesy vasquez [birth year] F Date Provider Department Center 05/17/2025 [id number] LARA Family History Problem Relation Age of Onset Heart attack Mother Heart attack Brother Family Status - Relation Status Age at Mother Father Brother OFFICE VISIT Observed: 05/16/2025 10:00 AM Status: COMPLETED Source: [facility] [id number] MichaelYesy Gaytan [birth year] F Date Provider Department Center 05/16/2025 [id number] SHORT Family History Problem Relation Age of Onset Heart attack Mother Heart attack Brother Family Status - Relation Status Age at Mother Father Brother Level of Service:[id number] NM OFFICE/OUTPATIENT ESTABLISHED MOD [facility] 30 MIN PROGRESS Observed: 05/16/2025 10:00 AM Status: COMPLETED Source: [facility] Cardiology - [facility] Subjective Yesy Rodriguez is a 84 [...] hyperglycemia, without long-term current use of insulin (CMS/HCC) Vitamin D deficiency Family History Problem Relation [...] is an 81-year-old woman who moved from [place] in May 2021. She is known to [...] then discharged. She was evaluated at the [facility] cardiology service and she was [...] 3. Moderately elevated right-sided filling pressures. 4. Pvjbtpyz-pk-gbqduz elevation of the left-sided filling pressures. 5. [...] she has been doing reasonably well from a cardiac perspective. She denies chest pain and shortness of breath. No palpitations. No dizziness or lightheadedness. She has mild lower extremity edema. Her main issue today is neck pain that has been chronic and is followed by her PCP. She cannot move her neck without pain. Visit of 05/16/2025: She is seen in follow-up. Today's visit is to follow-up on her recent echocardiogram that showed further progression of her valvular disease and significant progression of pulmonary hypertension. She reports that she has been relatively okay except that she feels tired and does not have the same energy she used to have before. She has no clear shortness of breath, chest pain and no syncope. She continues to take same medications as prescribed before. Recent blood testing shows stable to improved renal function. Review of Systems Constitutional: Positive for malaise/fatigue. Objective Visit Vitals BP 123/66 (BP Location: Right arm, Patient Position: Sitting) Pulse 58 Ht 1.499 m (4' 11 ) Wt 54.9 kg (121 lb) SpO2 98% BMI 24.44 kg/m??? Smoking Status Former BSA 1.51 m??? Physical Exam Constitutional: Appearance: She is well-developed. She is not ill-appearing. Comments: Thin appearing HENT: Head: Normocephalic and atraumatic. Nose: Nose normal. Eyes: General: No scleral icterus. Pupils: Pupils are equal, round, and reactive to light. Neck: Thyroid: No thyromegaly. Vascular: No JVD. Cardiovascular: Rate and Rhythm: Normal rate. Rhythm irregularly irregular. Heart sounds: Murmur heard. Systolic (RUSB, Byron) murmur is present with a grade of 4/6. No friction rub. No gallop. Pulmonary: Effort: Pulmonary effort is normal. No respiratory distress. Breath sounds: Normal breath sounds. No wheezing or rales. Chest: Chest wall: No tenderness. Abdominal: General: Bowel sounds are normal. There is no distension. Palpations: Abdomen is soft. Tenderness: There is no abdominal tenderness. Musculoskeletal: General: No swelling. Cervical back: Neck supple. Right lower le+ Pitting Edema present. Left lower le+ Pitting Edema present. Skin: General: Skin is warm and dry. Neurological: General: No focal deficit present. Mental Status: She is alert and oriented to person, place, and time. Psychiatric: Mood and Affect: Mood normal. Behavior: Behavior is cooperative. Judgment: Judgment normal. Allergies No Known Allergies Medications Current Outpatient Medications: amLODIPine (Norvasc) 5 mg tablet, Take 1 tablet by mouth in the morning., Disp: , Rfl: anastrozole (Arimidex) 1 mg chemo tablet, Take 1 tablet every day by oral route for 90 days., Disp: , Rfl: apixaban (Eliquis) 2.5 mg tablet, Take 1 tablet (2.5 mg) by mouth two times daily., Disp: 180 tablet, Rfl: 3 atorvastatin (Lipitor) 10 mg tablet, Take 1 tablet every day by oral route for 90 days., Disp: , Rfl: benazepril (Lotensin) 10 mg tablet, Take 1 tablet by mouth in the morning., Disp: , Rfl: cholecalciferol, vitamin D3, 10 mcg (400 unit) capsule, Take by mouth in the morning., Disp: , Rfl: docusate sodium (Colace) 100 mg capsule, 1 capsule in the morning., Disp: , Rfl: empagliflozin (Jardiance) 10 mg, Take 1 tablet (10 mg) by mouth in the morning., Disp: 90 tablet, Rfl: 0 furosemide (Lasix) 40 mg tablet, Take 40 mg by mouth in the morning. Taking 40mg in the AM, and 20mg in the PM, Disp: , Rfl: latanoprost (Xalatan) 0.005 % ophthalmic solution, , Disp: , Rfl: metoprolol succinate XL (Toprol-XL) 200 mg 24 hr tablet, Take 1 tablet every day by oral route for 90 days., Disp: , Rfl: SITagliptin (Januvia) 50 mg tablet, Take 1 tablet by mouth in the morning., Disp: , Rfl: Recent Labs No visits with results within 6 Month(s) from this visit. Latest known visit with results is: [facility] Encounter on 01/17/2022 Component Date Value Glucose POC 01/17/2022 109 (H) Blood testing 05/04/2025: Triglycerides 92, cholesterol 156, HDL 61, LDL 77. Blood testing 05/02/2025: Hemoglobin 13.8, platelets 241, potassium 4.1, BUN 37, creatinine 1.45, EGFR 34. Blood testing 02/23/2024: Potassium 4.1, BUN 64, creatinine 1.91, EGFR 25. 09/08/23: Cr. 1.37, BUN 51, K 4.1, Na 139, eGFR 37, NTproBNP: 4343 04/23/2023: Cr. 1.35, BUN 32, K 3.7, Na 144, eGFR 37, BNP 2951 BMP 03/17/2023: Cr. 1.87, BUN 67, K 4.6, Na 139, eGFR 26 03/12/2023: Cr. 1.55, BUN 49, K 3.9, GFR 32, Na 142, NTproBNP: 3283, D-dimer 1.34 BMP 02/05/2023: Cr. 1.04, BUN 33, K 4.5, GFR 50 CMP 01/13/2023: Cr. 1.48, BUN 42, K 5.7, GFR 34, ALT 43, AST 30 09/10/2022: CBC: hgb 13.5, plt 287, Cr. 1.55, BUN 42, K 3.9, Na 139, GFR 32, ALT 47, AST 23 05/06/2022: Cr. 1.51, BUN 40, K 5.1, Na 139, GFR 33 BMP 01/16/2022: BUN 48, creatinine 1.27, potassium 4.0. Creatinine 01/17/2022: 1.04. Blood testing 11/30/2021: BUN 28, creatinine 1.18, GFR 44, potassium 4.2. Blood testing 11/17/2021: Hematocrit 29.6, hemoglobin 9.8, platelets 223, BMP 915, potassium 3.7, BUN 34, creatinine 1.42. Troponin 0 0.03. Imaging and other tests Echocardiogram 05/02/2025: 1. Mild concentric left ventricular hypertrophy with normal systolic function. LVEF is estimated at 60 to 65%. 2. Normal right ventricular size and systolic function. 3. Moderate to severe biatrial dilatation. 4. Severe low-flow low gradient aortic valve stenosis with mild regurgitation. DVI 0.24, WISAM 0.6 cm???. 5. Moderate mitral stenosis and moderate regurgitation. 6. Mild tricuspid regurgitation. 7. Severely elevated right-sided pressures RVSP is 94 mmHg. ECHO 11/01/2024 CONCLUSION: 1. Normal ventricular systolic function. LVEF is 60%. 2. Moderate severe biatrial dilatation. 3. Moderate to severe aortic valve stenosis. 4. Moderate mitral valve stenosis and regurgitation. 5. Mildly elevated right-sided pressures. Echocardiogram 05/03/2024: Global left ventricular systolic function is normal, estimated ejection fraction is 55 to 60%. Normal right ventricular size and systolic function. Biatrial enlargement. Mild to moderate tricuspid regurgitation. Moderate to severe mitral regurgitation. Mild mitral valve stenosis. Mild to moderate aortic valve stenosis. DVI 0.3 is consistent with moderate stenosis. Mild aortic valve regurgitation. RVSP 29 mmHg. Echocardiogram 10/08/2023: CONCLUSION: 1. Global left ventricular systolic function is normal; visually estimated ejection fraction is 60 to 65% 2. Biatrial enlargement 3. The right ventricle is normal in size and systolic function 4. Mild to moderate tricuspid regurgitation 5. Right ventricular systolic pressure is moderately elevated; RVSP 45 mmHg 6. Mitral valve stenosis is suspected; unable to assess severity 7. Moderate to severe mitral regurgitation 8. Aortic valve stenosis; Doppler velocity suggests mild to moderate aortic valve stenosis. Severe aortic stenosis is suggested by the DVI of 0.20 and aortic valve area of 0.4 cm??. 9. Mild aortic valve regurgitation 10. Trivial pericardial effusion ECHO (03/10/2023) Normal ventricular systolic function, LVEF 60-65% Moderate to severe biatrial dilatation Moderate to severe aortic stenosis Moderate MR Mild TR Moderately elevated right sided pressures, RVSP 57 Echocardiogram 08/21/2022: Normal ventricular systolic function, LVEF is 65%, severe aortic valve stenosis, DVI 0.22, mean gradient 15 mmHg, WISAM by VTI 0.6 cm???, LV stroke-volume 39 mL. Doppler velocities suggest paradoxical low-flow low gradient aortic stenosis, moderate mitral regurgitation, mild tricuspid regurgitation, moderately elevated right-sided pressures, RVSP 46 mmHg, severe left atrial enlargement, no pericardial effusion. If clinically indicated a transesophageal echocardiogram can provide better assessment of the aortic valve. Echocardiogram 06/05/2022: Normal ventricular systolic function, LVEF is 65%, moderate aortic valve stenosis with mild regurgitation, mild mitral stenosis with moderate regurgitation, mild tricuspid regurgitation, moderate to severe biatrial dilatation, moderately elevated right-sided pressures, RVSP 55 mmHg, no pericardial effusion. DVI 0.27, aortic valve area 1 cm???, mean gradient 21 mmHg, peak velocity 3.2 m/s. Carotid duplex ultrasound 01/21/2022: No hemodynamically significant [...] 3. Moderately elevated right-sided filling pressures. 4. Lwbopgsz-gj-xhcbam elevation of the left-sided filling pressures. 5. Preserved cardiac output and cardiac index. 6. Moderate to severe mitral valve stenosis. 7. Moderate aortic valve stenosis. ERIK 01/16/2022: LV systolic function is normal, EF 55%, normal RV systolic function. Moderate mitral regurgitation and moderate mitral valve stenosis, mild aortic valve regurgitation moderate aortic valve stenosis. CT angiogram of the chest 10/16/2021: No evidence of filling defects in the pulmonary circulation. Jean Carlos calcifications noted. Echocardiogram 08/30/2021: LV systolic function is 60-65%, concentric hypertrophy without segmental wall motion abnormalities, aortic valvular disease including severe stenosis with mild regurgitation, mitral valvular disease with moderate stenosis and moderate regurgitation, tricuspid regurgitation moderate, mild to moderate pulmonary hypertension Assessment/Plan Diagnoses and all orders for this visit: Nonrheumatic aortic valve stenosis - Transthoracic echo (TTE) complete; Future Chronic diastolic heart failure (CMS/HCC) - Transthoracic echo (TTE) complete; Future Longstanding persistent atrial fibrillation (CMS/HCC) Nonrheumatic mitral valve regurgitation - Transthoracic echo (TTE) complete; Future Nonrheumatic mitral (valve) stenosis - Transthoracic echo (TTE) complete; Future Primary hypertension Coronary artery disease involving stockbridge coronary artery of stockbridge heart without angina pectoris Stage 3 chronic kidney disease, unspecified whether stage 3a or 3b CKD (CMS/HCC) Pulmonary hypertension (CMS/HCC) - Transthoracic echo (TTE) complete; Future Yesy is 84 year-old woman with significant mixed valvular disease, including mitral stenosis with regurgitation and aortic stenosis with regurgitation. Her left ventricular systolic function is preserved. In 2021 ERIK and cardiac catheterization evaluation showed her aortic valve stenosis continues to be moderate at that time. She has done relatively well with medical therapy. she does have fatigue and lack of energy and the same things she used to do before but no clear mention of shortness of breath or chest pain. Her exam shows mild lower extremity edema. I reviewed with her the results of the recent echocardiogram that showed progression of valvular disease and severely elevated right-sided pressures with an RVSP of 94 mmHg. I discussed with them the option proceeding now with further evaluation by transesophageal echocardiogram and cardiac catheterization versus waiting. She prefers to wait for the time being. I will plan a follow-up echocardiogram in 3 months. Continue Eliquis 2.5 mg twice daily for atrial fibrillation. No aspirin given Eliquis therapy and advanced age. Spironolactone was stopped due to hyperkalemia in the past. She is currently on Jardiance. Her renal function May 2025 shows renal function stable to improved. 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 I will plan on seeing her in follow-up in 3 months with a follow-up echocardiogram to make a decision then on proceeding with further testing prior to potential valvular intervention. Follow up in about 3 months (around 08/16/2025). Onel Walters MD ORDERS ONLY Observed: 05/13/2025 12:00 AM Status: COMPLETED Source: [facility] [id number] Yesy Rodriguez J [birth year] [facility] Provider Department Center 05/13/2025 [id number], HISTORICAL NICHOLAS Camacho Family History Problem Relation Age of Onset Heart attack Mother Heart attack Brother Family Status - Relation Status Age at Mother Brother ORDERS ONLY Observed: 05/04/2025 12:00 AM Status: COMPLETED Source: [facility] [id number] Yesy Rodriguez J [birth year] Provider Department Center 05/04/2025 [id number], HISTORICAL NICHOLAS Camacho Family History Problem Relation Age of Onset Heart attack Mother Heart attack Brother Family Status - Relation Status Age at Mother Brother PROGRESS Observed: 05/03/2025 9:36 AM Status: COMPLETED Source: [facility] RVSP has doubled since her l ast ECHO 6 months ago. Was at 44 now is at 94. 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 She see's you on 05/16/25. Do you want me to order a ERIK, increase lasix, or just wait until you see her? Thanks! Yennifer PROGRESS Observed: 05/03/2025 9:36 AM Status: COMPLETED Source: [facility] Please let her know there we re changes on her recent ECHO. We need to proceed with a follow-up ERIK to further assess her aortic valve. Thanks! Yennifer ORDERS ONLY Observed: 05/03/2025 12:00 AM Status: COMPLETED Source: [facility] [id number] Yesy Rodriguez J [birth year] [facility] Provider Department Center 05/03/2025 [id number], HISTORICAL NICHOLAS Camacho Family History Problem Relation Age of Onset Heart attack Mother Heart attack Brother Family Status - Relation Status Age at Mother Brother CA 125 Collected: 5 10:57 AM Status: F Source: [facility] TYPE CODE TESTS RESULT OUT OF RANGE REFERENCE UNITS LAB CA125(LOINC) CA 125 8 0-38 U/mL Result Comment: The Jorje E CLIA assay is used. Results obtained with different assay methods cannot be used interchangeably. Performed By: #### CA125 ### # [facility] [address] [place] [address] Milk Condenser: Andrew Blakely MD OFFICE VISIT Observed: 11/10/2024 2:20 PM Status: COMPLETED Source: [facility] [id number] Yesy Rodriguez [birth year] F Date Provider Department Center 11/10/2024 DHEERAJ CARNEY CARD Patrice Hos Family History Problem Relation Age of Onset Heart attack Mother Heart attack Brother Family Status - Relation Status Age at Mother Brother Level of Service:22920 NM OFFICE/OUTPATIENT ESTABLISHED LOW [facility] 20 MIN Reason for Visit and Comments: Valve Disorder [3372] Coronary Artery Disease [187] Atrial Fibrillation [80] PROGRESS Observed: 11/10/2024 2:20 PM Status: COMPLETED Source: [facility] Patient here for 6 mo follow up valve disorder, chronic diastolic heart failure, and CAD. Had routine echo last week. She denies chest pain, SOB, palpitations, lightheadedness/syncope, and bleeding on Eliquis. Her niece states the only thing she c/o is fatigue. Review of Systems Constitutional: Positive for malaise/fatigue. Musculoskeletal: Positive for back pain and neck pain. All other systems reviewed and are negative. PROGRESS Observed: 11/10/2024 2:20 PM Status: COMPLETED Source: [facility] Cardiovascular Medicine [facility] SUBJECTIVE Chief Complaint Patient presents with [...] CP, dyspnea, orthopnea, PND, dizziness/LH, palpitations, syncope. Last HPI per Dr. Walters: Visit of 12/28/2021: Yesy is seen as a new patient. She is here to establish care and to proceed with work-up of her valvular heart disease and diastolic heart failure. She is an 81-year-old woman who moved from [place] in May 2021. She is known to [...] then discharged. She was evaluated at the [facility] cardiology service and she was [...] 3. Moderately elevated right-sided filling pressures. 4. Avgeiowm-eq-tuyver elevation of the left-sided filling pressures. 5. [...] she has been doing reasonably well from a cardiac perspective. She denies chest pain and shortness of breath. No palpitations. No dizziness or lightheadedness. She has mild lower extremity edema. Her main issue today is neck pain that has been chronic and is followed by her PCP. She cannot move her neck without pain. Patient Active Problem List Diagnosis Chronic diastolic [...] hyperglycemia, without long-term current use of insulin (CMS/HCC) Vitamin D deficiency Past Medical History: Diagnosis Date Abnormal ECG Arrhythmia Cancer (CMS/HCC) CHF (congestive heart failure) (CMS/HCC) Chronic diastolic heart failure ([facility]/HCC) 12/28/2021 Longstanding persistent atrial fibrillation ([facility]/HCC) 09/06/2022 Family History Problem Relation Name Age of Onset Heart attack Mother Heart attack Brother Social History Tobacco Use Smoking status: Former Types: Cigarettes Smokeless tobacco: Never Substance Use Topics Alcohol use: Yes Comment: occasional social Drug use: Never No Known Allergies ROS Constitutional: Positive for malaise/fatigue. Musculoskeletal: Positive for back pain and neck pain. All other systems reviewed and are negative. OBJECTIVE Visit Vitals BP 142/74 (BP Location: Right arm, Patient Position: Sitting) Pulse 61 Ht 1.499 m (4' 11 ) Wt 55.3 kg (122 lb) SpO2 98% BMI 24.64 kg/m??? Smoking Status Former BSA 1.52 m??? Medications: Current Outpatient Medications: amLODIPine (Norvasc) 5 mg tablet, Take 1 tablet by mouth in the morning., Disp: , Rfl: anastrozole (Arimidex) 1 mg chemo tablet, Take 1 tablet every day by oral route for 90 days., Disp: , Rfl: atorvastatin (Lipitor) 10 mg tablet, Take 1 tablet every day by oral route for 90 days., Disp: , Rfl: benazepril (Lotensin) 10 mg tablet, Take 1 tablet by mouth in the morning., Disp: , Rfl: cholecalciferol, vitamin D3, 10 mcg (400 unit) capsule, Take by mouth in the morning., Disp: , Rfl: docusate sodium (Colace) 100 mg capsule, 1 capsule in the morning., Disp: , Rfl: furosemide (Lasix) 40 mg tablet, Take 40 mg by mouth in the morning. Taking 40mg in the AM, and 20mg in the PM, Disp: , Rfl: Jardiance 10 mg, TAKE 1 TABLET BY MOUTH EVERY DAY IN THE MORNING, Disp: 30 tablet, Rfl: 11 latanoprost (Xalatan) 0.005 % ophthalmic solution, , Disp: , Rfl: metoprolol succinate XL (Toprol-XL) 200 mg 24 hr tablet, Take 1 tablet every day by oral route for 90 days., Disp: , Rfl: SITagliptin (Januvia) 50 mg tablet, Take 1 tablet by mouth in the morning., Disp: , Rfl: apixaban (Eliquis) 2.5 mg tablet, Take 1 tablet (2.5 mg) by mouth two times daily., Disp: 180 tablet, Rfl: 3 Physical Exam Constitutional: Appearance: She is well-developed. She is not ill-appearing. Comments: Thin appearing HENT: Head: Normocephalic and atraumatic. Nose: Nose normal. Eyes: General: No scleral icterus. Pupils: Pupils are equal, round, and reactive to light. Neck: Thyroid: No thyromegaly. Vascular: No JVD. Cardiovascular: Rate and Rhythm: Normal rate. Rhythm irregularly irregular. Heart sounds: Murmur heard. Systolic (RUSB, Byron) murmur is present with a grade of 3/6. No friction rub. No gallop. Pulmonary: Effort: Pulmonary effort is normal. No respiratory distress. Breath sounds: Normal breath sounds. No wheezing or rales. Chest: Chest wall: No tenderness. Abdominal: General: Bowel sounds are normal. There is no distension. Palpations: Abdomen is soft. Tenderness: There is no abdominal tenderness. Musculoskeletal: General: No swelling. Cervical back: Neck supple. Right lower le+ Pitting Edema present. Left lower le+ Pitting Edema present. Skin: General: Skin is warm and dry. Neurological: General: No focal deficit present. Mental Status: She is alert and oriented to person, place, and time. Psychiatric: Mood and Affect: Mood normal. Behavior: Behavior is cooperative. Judgment: Judgment normal. Labs: [facility] Encounter on 01/17/2022 Component Date Value Ref Range Status Glucose POC 01/17/2022 109 (H) 70 - 100 mg/dL Final No results found for: EXTCMP , BMPR1A , CBCDIF , BNP , LASAP , RED 09/08/23: Cr. 1.37, BUN 51, K 4.1, Na 139, eGFR 37, NTproBNP: 4343 04/23/2023: Cr. 1.35, BUN 32, K 3.7, Na 144, eGFR 37, BNP 2951 BMP 03/17/2023: Cr. 1.87, BUN 67, K 4.6, Na 139, eGFR 26 03/12/2023: Cr. 1.55, BUN 49, K 3.9, GFR 32, Na 142, NTproBNP: 3283, D-dimer 1.34 [facility] 02/05/2023: Cr. 1.04, BUN 33, K 4.5, GFR 50 [facility] 01/13/2023: Cr. 1.48, BUN 42, K 5.7, GFR 34, ALT 43, AST 30 09/10/2022: CBC: hgb 13.5, plt 287, Cr. 1.55, BUN 42, K 3.9, Na 139, GFR 32, ALT 47, AST 23 05/06/2022: Cr. 1.51, BUN 40, K 5.1, Na 139, GFR 33 BMP 01/16/2022: BUN 48, creatinine 1.27, potassium 4.0. Creatinine 01/17/2022: 1.04. Blood testing 11/30/2021: BUN 28, creatinine 1.18, GFR 44, potassium 4.2. Blood testing 11/17/2021: Hematocrit 29.6, hemoglobin 9.8, platelets 223, BMP 915, potassium 3.7, BUN 34, creatinine 1.42. Troponin 0 0.03. Testing/Procedures: ECHO 11/01/2024 CONCLUSION: 1. Normal ventricular systolic function. LVEF is 60%. 2. Moderate severe biatrial dilatation. 3. Moderate to severe aortic valve stenosis. 4. Moderate mitral valve stenosis and regurgitation. 5. Mildly elevated right-sided pressures. Echocardiogram 05/03/2024: Global left ventricular systolic function is normal, estimated ejection fraction is 55 to 60%. Normal right ventricular size and systolic function. Biatrial enlargement. Mild to moderate tricuspid regurgitation. Moderate to severe mitral regurgitation. Mild mitral valve stenosis. Mild to moderate aortic valve stenosis. DVI 0.3 is consistent with moderate stenosis. Mild aortic valve regurgitation. RVSP 29 mmHg. Echocardiogram 10/08/2023: CONCLUSION: 1. Global left ventricular systolic function is normal; visually estimated ejection fraction is 60 to 65% 2. Biatrial enlargement 3. The right ventricle is normal in size and systolic function 4. Mild to moderate tricuspid regurgitation 5. Right ventricular systolic pressure is moderately elevated; RVSP 45 mmHg 6. Mitral valve stenosis is suspected; unable to assess severity 7. Moderate to severe mitral regurgitation 8. Aortic valve stenosis; Doppler velocity suggests mild to moderate aortic valve stenosis. Severe aortic stenosis is suggested by the DVI of 0.20 and aortic valve area of 0.4 cm??. 9. Mild aortic valve regurgitation 10. Trivial pericardial effusion ECHO (03/10/2023) Normal ventricular systolic function, LVEF 60-65% Moderate to severe biatrial dilatation Moderate to severe aortic stenosis Moderate MR Mild TR Moderately elevated right sided pressures, RVSP 57 Echocardiogram 08/21/2022: Normal ventricular systolic function, LVEF is 65%, severe aortic valve stenosis, DVI 0.22, mean gradient 15 mmHg, WISAM by VTI 0.6 cm???, LV stroke-volume 39 mL. Doppler velocities suggest paradoxical low-flow low gradient aortic stenosis, moderate mitral regurgitation, mild tricuspid regurgitation, moderately elevated right-sided pressures, RVSP 46 mmHg, severe left atrial enlargement, no pericardial effusion. If clinically indicated a transesophageal echocardiogram can provide better assessment of the aortic valve. Echocardiogram 06/05/2022: Normal ventricular systolic function, LVEF is 65%, moderate aortic valve stenosis with mild regurgitation, mild mitral stenosis with moderate regurgitation, mild tricuspid regurgitation, moderate to severe biatrial dilatation, moderately elevated right-sided pressures, RVSP 55 mmHg, no pericardial effusion. DVI 0.27, aortic valve area 1 cm???, mean gradient 21 mmHg, peak velocity 3.2 m/s. Carotid duplex ultrasound 01/21/2022: No hemodynamically significant [...] 3. Moderately elevated right-sided filling pressures. 4. Leniclpy-hm-kmmtpj elevation of the left-sided filling pressures. 5. Preserved cardiac output and cardiac index. 6. Moderate to severe mitral valve stenosis. 7. Moderate aortic valve stenosis. ERIK 01/16/2022: LV systolic function is normal, EF 55%, normal RV systolic function. Moderate mitral regurgitation and moderate mitral valve stenosis, mild aortic valve regurgitation moderate aortic valve stenosis. CT angiogram of the chest 10/16/2021: No evidence of filling defects in the pulmonary circulation. Jean Carlos calcifications noted. Echocardiogram 08/30/2021: LV systolic function is 60-65%, concentric hypertrophy without segmental wall motion abnormalities, aortic valvular disease including severe stenosis with mild regurgitation, mitral valvular disease with moderate stenosis and moderate regurgitation, tricuspid regurgitation moderate, mild to moderate pulmonary hypertension ASSESSMENT/PLAN: #Aortic valve stenosis #Mitral valve stenosis and regurg -Hx of moderate to severe mitral stenosis with moderate mitral regurgitation, moderate to severe aortic valve stenosis with mild regurgitation. Preserved left ventricular systolic function. She had a follow-up ERIK which noted moderate aortic stenosis. -Her most recent ECHO 03/10/23 shows her valve function moderate to severe aortic stenosis. Given she is feeling well and denies any cardiac sx's, will continue to closely monitor. -Follow-up ECHO in 6 months or sooner if needed. #Chronic diastolic heart failure #CKD -She appears compensated on exam. Continue lasix 40mg AM/20mg PM. -Most recent renal function was stable. -GDMT: continue Jardiance 10mg daily -Discussed heart failure diet including low Na+ and 2L daily fluid restriction. #Atrial fib, persistent -Continue Eliquis 2.5 mg twice daily for atrial fibrillation (low dose due to age and weight). -Consider LAAO device if she has issues with bleeding or falls/balance. -Rate controlled, continue Toprol. #CAD #HLD -Moderate 3V dz per 2021 cath -Denies dyspnea, angina -Continue Toprol, Lipitor. No aspirin given Eliquis therapy and advanced age. -Follow-up lipid panel with next lab work. Follow up in about 6 months (around 05/11/2025). Dheeraj Sesay NP [facility] CA 125 Collected: 4 11:09 AM Status: F Source: [facility] TYPE CODE TESTS RESULT OUT OF RANGE REFERENCE UNITS LAB CA125([facility]) CA 125 8 0-38 U/mL Result Comment: The Jorje E CLIA assay is used. Results obtained with different assay methods cannot be used interchangeably. Performed By: #### CA125 ### # [employer] [address] [place], [place] [id number] Milk Condenser: Andrew Blakely MD ALLERGIES DATE TYPE / CODE NAME / CODE REACTION SEVERITY SOURCE SYSTEMIC/[id number]( SNOMED CT) NO KNOWN ALLERGIES [facility] ENCOUNTERS ADMIT/DISCHARGE ACCOUNT NUMBER ADMITTING ENCOUNTER CLASS LOCATION SOURCE 08/22/2025/ 5 [id number] Ambulatory Building:[facility] 08/02/2025/ 5 [id number] Ambulatory Building:[facility] 05/16/2025/ 5 [id number] [facility] [facility] 03/09/2025/ 5 [id number] Ambulatory Building:[facility] 01/31/2025/ 5 [id number] Ambulatory Building:[facility] 01/17/2025/ 5 [id number] Ambulatory Building:[facility] 01/03/2025/ 5 [id number] Ambulatory Building:[facility] FAMMED [facility] 11/17/2024/ 4 [id number] Ambulatory Building:[facility] S [facility] JUVENAL [facility] 11/10/2024/ 4 [id number] Ambulatory Building:[facility] 09/08/2024/ 4 [id number] Ambulatory Building:[facility] PAYERS ENCOUNTER GUARANTOR PAYER SUBSCRIBER SOURCE 08/22/2025 Primary Insurance:HUMANA MEDICARE ADVANTAGEPolicy Number: [id number] Date:2021-05-31 YESY TIRADOOB: [id number] [place] [address] [facility] 08/02/2025 YESY TIRDAOOB: [place], [place] [address]Qjx: (HP) Primary Insurance:HUMANA MEDICARE ADVANTAGEPolicy Number: [id number] Date:2021-05-31 YESY TIRADOOB: [id number] [place] [address] [facility] 05/16/2025 Primary Insurance:HUMANA MEDICARE ADVANTAGEPolicy Number: [id number] Date:2021-05-31 YESY TIRADOOB: [id number] [place] [address] [facility] 03/09/2025 YESY TIRADOOB: [place] [address]Jif: (HP) Primary Insurance:HUMANA MEDICAREPolicy Number: [id number] Date:2020-12-01 YESY TIRADOOB: [id number] [place] [address]Vii: (HP) [facility] 01/31/2025 YESY TIRDAOOB: [place], [place] [address]Dho: (HP) Primary Insurance:HUMANA MEDICARE ADVANTAGEPolicy Number: [id number] Date:2021-05-31 YESY TROTTERODOB: [id number] [place] [address] [facility] 01/17/2025 YESY TROTTERODOB: [place], [place] [address]Uyh: (HP) Primary Insurance:HUMANA MEDICARE ADVANTAGEPolicy Number: [id number] Date:2021-05-31 YESY TIRADOOB: [id number] [place] [address] [facility] 01/03/2025 YESY TROTTERODOB: [place], [place] [address]Zha: (HP) Primary Insurance:HUMANA MEDICARE ADVANTAGEPolicy Number: [id number] Date:2021-05-31 YESY TROTTERODOB: [id number] [place] [address] [facility] 11/17/2024 YESY TROTTERODOB: [place] [address]Gvk: (HP) Primary Insurance:HUMANA MEDICARE ADVANTAGEPolicy Number: [id number] Date:2021-05-31 YESY TROTTERODOB: [id number] [place] [address] [facility] 11/10/2024 Primary Insurance:HUMANA MEDICARE ADVANTAGEPolicy Number: [id number] Date:2021-05-31 YESY TROTTERODOB: [id number] [place] [address] [facility] 09/08/2024 YESY TROTTERODOB: [place] [address]Rns: (HP) Primary Insurance:HUMANA MEDICAREPolicy Number: [id number] Date:2020-12-01 YESY Gaytan ROSE MARIEODOB: [id number] [place], [place] [address]Wns: () [facility]
[2025-08-31 10:02] LABS: Hematocrit 40.1 % (36.0-48.0); Hemoglobin 13.5 g/dL (12.0-16.0); Immature Granulocytes Abs Auto 0.01 10^3/uL (0.00-0.03); Immature Granulocytes Pct Auto 0.1 % (0.0-0.5); Lymphocytes Absolute Auto 0.9 10^3/uL (1.2-3.8); Mean Corpuscular HGB Conc 33.7 g/dL (29.9-35.2); Mean Corpuscular Hemoglobin 32.0 pg (26.7-34.0); Mean Corpuscular Volume 95.0 fL (81.0-99.0); Platelet Count 245 10^3/uL (150-450); Red Blood Count 4.22 10^6/uL (4.20-5.40); White Blood Count 9.9 10^3/uL (4.0-11.0)
[2025-08-31 10:03] LABS: Anion Gap 14.0; Blood Urea Nitrogen 42.0 mg/dL (7.0-18.0); Calcium 9.4 mg/dL (8.5-10.1); Carbon Dioxide 28.5 mmol/L (21.0-32.0); Chloride 102 mmol/L (98-107); Estimated GFR (African America 28 (>=60 mL/min/1.73m^2); Estimated GFR (Non-African Ame 23 (>=60 mL/min/1.73m^2); Glucose 135 mg/dL (74-106); Potassium 4.5 mmol/L (3.5-5.1); Sodium 140 mmol/L (136-145)
== END 2025-08-31 09:09 | disposition home or self-care (01) ==
LOC: LAB 09:11
PROVIDERS: PCP Nurse Practitioner Family; Visit Provider Internal Medicine Interventional Cardiology
DX: I35.0 Nonrheumatic aortic (valve) stenosis (principal)
CPT/HCPCS: 36415; 80048; 85025

== ENCOUNTER 2025-09-08 11:56 | Emergency (ER) | payer MEDICARE, SELFPAY ==
--- OUTSIDE RECORDS SUMMARY | 2025-09-08 12:11 | XMS_ITS | CCD ---
Author Organization [facility] Inform ion [facility] Care Team Providers Care [employer] Installer Name Role Phone Zachary Boyle Primary Care Provider ANABEL DUNCAN Referring Unavailable ANABEL DUNCAN Referring Unavailable ZACHARY BOYLE Primary Care Unavailable Albin Bonner Unavailable Zachary Boyle Primary Care Provider Kelvin Maya MD [place] Primary Care Provider [place], DR ZACHARY Bermudez Primary Care Unavailable FURLONG, DR ZACHARY Bermudez Consulting Unavailable FURLONG, DR ZACHARY Bermudez Attending Unavailable FURLONG, DR ZACHARY Bermudez Admitting Unavailable [place], DR CHARIS Maya Consulting Unavailable MISC, DR [...] DR ZACHARY Bermudez Primary Care Unavailable VENTURADHEERAJ KUMARI Admitting Unavailable DHEERAJ SESAY Consulting Unavailable DHEERAJ [...] DENNISON Consulting Unavailable VENTURA, DHEERAJ Attending Unavailable VENTURADHEERAJ KUMARI Consulting Unavailable MOUKARBEL, [...] Primary Care Provider Soraida Bethea NP Unavailable Fredy DO, [place] Primary Care Provider [phone] KOLEDA, IMAN Referring Unavailable FREDY, ELMIRA Primary Care Unavailable KOLEDA, IMAN Referring Unavailable FREDY, ELMIRA Primary Care Unavailable Fredy DO, [place] G Unavailable SORAIDA BETHEA Attending Unavailab ROCHELLE Adams Attending Unavailable SORAIDA BETHEA Attending Unavailab SORAIDA Muller Attending Unavailab abbe MOUKAONEL CABA Attending Unavailable MOUKARBELONEL Admitting Unavailable MOUKAONEL CABA Attending Unavailable MOUKAONEL CABA Referring Unavailable MOUKARBEL, ONEL Referring Unavailable DHEERAJ SESAY Attending Unavailable MOUKARBEL, ONEL Attending Unavailable Medications Current Medications Medication Drug [...] tablet (20 sources) HMG-CoA Reductase Inhibitor Start: 2021 End: 06-01-2025 atorvastatin (Lipitor) 10 MG tablet Indications: Mixed hyperlipidemia TAKE 1 TABLET EVERY DAY 90 tablet 3 06/01/2025 Active benazepril hydrochloride 10 mg oral tablet (20 sources) Angiotensin Converting Enzyme Inhibitor Start: 07-12-2021 End: 10-15-2024 benazepril (Lotensin) 10 MG tablet Indications: Primary hypertension TAKE 1 TABLET EVERY DAY 90 tablet 3 10/15/2024 Active Blood Glucose Monitoring Suppl (True Metrix Meter) w/Device kit (20 sources) Start: 08-20-2022 Blood Glucose Monitoring Suppl (True Metrix Meter) w/Device kit 08/20/2022 Active Start: 08-20-2022 Blood Glucose Monitoring Suppl (True Metrix Meter) w/Device kit Calcium Carb-Cholecalciferol (CALCIUM CREAMIES) 600-10 MG-MCG CHEW (1 source) Start: 09-17-2024 take 2 tablets by mouth once daily at breakfast Calcium Carb-Cholecalciferol (CALCIUM CREAMIES) 600-10 MG-MCG CHEW Indications: At risk for bone density loss , USP (current) use of aromatase inhibitors Take 2 [...] 2024 2:49pm empagliflozin 10 mg oral tablet (20 sources) Sodium-Glucose Cotransporter 2 Inhibitor Start: 01-06-2024 [...] Active isopropyl alcohol 0.7 ml/ml medicated pad (20 sources) Start: 04-08-2023 Alcohol Swabs (DropSafe Alcohol [...] (ACTOS) 30 MG tablet daily 07/06/2021 Active 12 hr ranolazine 500 mg extended release oral tablet (2 sources) Anti-anginal Start: 07-28-2025 take 1 tablet by mouth every twelve hours in the morning ranolazine (Ranexa) 500 MG 12 hr tablet Take 500 mg by mouth in the morning and 500 mg before bedtime. 07/28/2025 Active SITagliptin 50 mg oral tablet (20 sources) Dipeptidyl Peptidase 4 Inhibitor Start: 11-06-2023 End: 01-31-2025 take 1 tablet by mouth once daily SITagliptin (Januvia) 50 MG tablet Indications: Type 2 diabetes mellitus with chronic kidney disease, without long-term current use of insulin, unspecified CKD stage (HCC) Take 1 tablet (50 mg) by mouth Daily 90 tablet 3 01/31/2025 Active Start: 07-07-2021 take 0.5 tablet by m outh once daily JANUVIA 100 MG tablet Take 0.5 tablets by mouth daily 07/07/2021 Active Start: 07-07-2021 JANUVIA 100 MG tablet daily 0 07/07/2021 Active sodium zirconium cyclosilicate 04369 mg powder for oral suspension (5 sources) [...] mg, Intra-articular, Once PRN Procedure, Starting on 01/17/25 at 2009, For 1 dose Problems Active [...] Chronic Coronary atherosclerosis and other heart disease (4 sources) Atherosclerotic heart disease of [place] coronary artery with other forms of angina pectoris; Translations: [Atherosclerotic heart disease of [place] coronary artery without angina pectoris] Onset: 5 [...] (primary) hypertension] Onset: 2 Resolved: 4 Chronic Heart valve disorders (20 sources) Nonrheumatic aortic (valve) stenosis; Translations: [Combined rheumatic disorders of mitral, aortic and tricuspid valves] Onset: 1 Chronic Hypertension with complications and secondary hypertension (12 sources) Hypertensive heart disease with heart failure; [...] PAIN UNSPECIFIED] Onset: 3 Episodic Nutritional deficiencies (14 sources) Vitamin D deficiency; Translations: [Vitamin D deficiency, unspecified] Onset: 3 Chronic Osteoarthritis (2 sources) Arthritis of left acromioclavicular joint; Translations: [Primary osteoarthritis, left shoulder] 01-17-2025 Chronic Osteoporosis (1 source) Age-related osteoporosis without current pathological fracture; Translations: [Age-related osteoporosis without current pathological fracture] Onset: 4 Chronic Other aftercare (1 source) Other prison (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; Translations: [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] Onset: 3 Episodic Other aftercare (1 source) USP (current) use of anticoagulants; Translations: [CENTRIFUGAL DRIER OPERATOR CURRNT USE ANTICOAGULANTS] Onset: 3 Episodic Other [...] disease; Translations: [Other abnormal blood chemistry] Episodic Peripheral and visceral atherosclerosis (20 sources) [...] Problem Date Documented Date Episodic/Chronic Allergic reactions (20 sources) Atopic dermatitis; Translations: [Intrinsic (allergic) eczema] Onset: 04-09-2023 Resolved: 01-17-2024 04-09-2023 Chronic Fluid and electrolyte disorders (7 sources) Hyperkalemia; Translations: [Hyperkalemia] Onset: 11-10-2024 Episodic Genitourinary symptoms and ill-defined conditions (20 sources) Randall hematuria; Translations: [Gross hematuria] Onset: 09-26-2021 Resolved: 01-17-2024 Episodic Menopausal disorders (20 sources) Postmenopausal bleeding; Translations: [Postmenopausal bleeding] Onset: 09-26-2021 Resolved: 01-17-2024 09-26-2021 Chronic Neoplasms of unspecified nature or uncertain behavior (20 sources) Borderline epithelial tumor of ovary; Translations: [Neoplasm of uncertain behavior of unspecified ovary] Onset: 07-18-2021 Episodic Other acquired deformities (20 sources) Lumbar spondylolisthesis; Translations: [Spondylolisthesis, lumbar region] Onset: 04-20-2015 01-12-2024 Episodic Other and unspecified benign neoplasm (20 sources) Serous cystadenoma of left ovary; Translations: [Benign neoplasm of left ovary] Onset: 11-21-2020 01-12-2024 Episodic Other connective tissue disease (20 sources) Tear of left rotator cuff; Translations: [Unspecified rotator cuff tear or rupture of left shoulder, not specified as traumatic] Onset: 04-09-2023 Resolved: 01-17-2024 04-09-2023 Episodic Other connective tissue disease (20 sources) Supraspinatus tear; Translations: [Unspecified rotator cuff tear or rupture of left shoulder, not specified as traumatic] Onset: 04-09-2023 Resolved: 01-17-2024 04-09-2023 Episodic Other connective tissue disease (20 sources) Pain in upper limb; Translations: [Pain in right arm] Onset: 02-22-2016 Resolved: 01-17-2024 01-12-2024 Episodic Other connective tissue disease (20 sources) Tendonitis of left shoulder; Translations: [Other enthesopathies, not elsewhere classified] Onset: 02-22-2016 Resolved: 01-17-2024 01-12-2024 Episodic Other ear and sense organ disorders (20 sources) Bilateral tinnitus; Translations: [Tinnitus, bilateral] Onset: 04-09-2023 Resolved: 01-17-2024 04-09-2023 Episodic Other female genital disorders (20 sources) Vulval and/or perineal noninflammatory disorders; Translations: [Noninflammatory disorder of vulva and perineum, unspecified] Onset: 03-12-2023 Resolved: 01-17-2024 05-11-2023 Episodic Other female genital disorders (20 sources) Dystrophy of vulva; 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] Onset: 01-12-2024 Resolved: 01-17-2024 01-12-2024 Episodic Other nutritional; endocrine; and metabolic disorders (3 sources) Hyperuricemia; Translations: [Hyperuricemia without signs of inflammatory arthritis and tophaceous disease] Onset: 11-10-2024 01-30-2024 Episodic Other screening for suspected conditions (not [...] disc disorders; other back problems (20 sources) Narrowing of intervertebral disc space; Translations: [...] Test Name Value Interpretation Reference Range Facility [facility] 09-06-2025 ANE Patient: Yesy Rodriguez Choose an anesthesia record to view details Clinical information reviewed: Allergies Meds OB Status Physical Exam Airway Mallampati: II Neck ROM: full Cardiovascular Rhythm: regular Dental Pulmonary Breath sounds clear to auscultation Neurological Abdominal Abdomen: soft Bowel sounds: normal Anesthesia Plan ASA 3 CSE The patient is not a current smoker. Anesthetic plan and risks discussed with patient. Additional Equipment Requests [facility] 09-06-2025 H&P reviewed. The patient was examined and there are no changes to the H&P. [facility] NURSNOTEon 09-06-2025 NURSNOTE Bedside swallow stud y completed and passed. RN educated pt on d/c instructions. This included: site care, limited physical activity, resume normal diet, future appointments, medications, and moderate sedation instructions. RN educated pt on when to notify physician and when to go to the hospital. RN encouraged pt to voice any questions or concerns, and answered any questions or concerns if pt verbalized. Pt was wheeled off of unit with all of belongings. [facility] 08-22-2025 [facility] Cardiology [facility] Subjective Yesy Rodriguez is a 85 y.o. year old female patient being seen for 3 mo follow up with ECHO. Patient states she has been feeling off and on. Patient states she has been to the [facility] ER quite a bit with chest [...] is an 81-year-old woman who moved from [place] in May 2021. She is known to [...] She was evaluated at the [facility] cardiology service and she was [...] carotid arteries. Vertebrals are patent with antegrade f (more content not included)... Normal [facility] Office Visiton 08-22-2025 Follow-up visit [id number] Mary Rodriguez 1940 F Date Provider Department Center 08/22/2025 ON[facility]ES [facility] Patrice Hos Family History Problem Relation Age of Onset Heart attack Mother Heart attack Brother Family Status - Relation Status Age at Mother Father Brother Level of Service:02057 [place] OFFICE/OUTPATIENT ESTABLISHED HIGH MDM [address] [facility] Orders Onlyon 08-22-2025 Orders Only [id number] Mary Rodriguez 1940 F Date Provider Department Center 08/22/2025 [id number] MONTIEL C CARD [facility] Family History Problem Relation Age of Onset Heart attack Mother Heart attack Brother Family Status - Relation Status Age at Mother Father Brother [facility] 36on 08-15-2025 36 Niece call and state d the ER gave Yesy Moralez for angina pain per niece she is out of them, would you like these refilled? She was only given 20 1 in the am 1 in pm. Yesy has a follow up appointment with you on 08/22/2025. Please advise. [facility] Laboratory - Hematology and Cell countson 08-02-2025 HbA1c (Bld) [Mass fraction] 6.5 % [facility] No Panel Informationon 08-02 [facility] Orders Onlyon 08-02-2025 Orders Only [id number] Mary Rodriguez 1940 F Date Provider Department Center 08/02/2025 [id number], HISTORICAL NICHOLAS Ibrahim Hos Family History Problem Relation Age of Onset Heart attack Mother Heart attack Brother Family Status - Relation Status Age at Mother Father Brother [facility] 36on 07-26-2025 36 Phone call from patients niece Lizabeth. Per Lizabeth patient had chest pain on [...] understanding and agreed with plan of care. [facility] 36on 05-17-2025 36 Patient niece would like [...] until I see her next. Advised mariama chamberlain. [facility] Telephoneon 05-17-2025 Telephone [id number] Garcia 1940 F Date Provider Department Center 05/17/2025 [id number] LARA BH CARD Patrice Hos Family History Problem Relation Age of Onset Heart attack Mother Heart attack Brother Family Status - Relation Status Age at Mother Father Brother [facility] Office Visiton 05-16-2025 Follow-up visit [id number] Garcia 1940 F Date Provider Department Center 05/16/2025 [facility]-ONEL WRIGHT BH CARD Patrice Hos Family History Problem Relation Age of Onset Heart attack Mother Heart attack Brother Family Status - Relation Status Age at Mother Father Brother Level of Service:14051 [place] OFFICE/OUTPATIENT ESTABLISHED MOD MDM [address] [facility] Orders Onlyon 05-13-2025 Orders Only [id number] Garcia 1940 F Date Provider Department Center 05/13/2025 [id number], HISTORICAL BH CARD Patrice Hos Family History Problem Relation Age of Onset Heart attack Mother Heart attack Brother Family Status - Relation Status Age at Mother Brother [facility] Orders Onlyon 05-04-2025 Orders Only [id number] Contreras 1940 F Date Provider Department Center 05/04/2025 [id number], HISTORICAL BH CARD Patrice Hos Family History Problem Relation Age of Onset Heart attack Mother Heart attack Brother Family Status - Relation Status Age at Mother Brother [facility] Orders Onlyon 05-03-2025 Orders Only [id number] Mary Rodriguez 1940 F Date Provider Department Center 05/03/2025 [id number], HISTORICAL CARD Patrice Doug Family History Problem Relation Age of Onset Heart attack Mother Heart attack Brother Family Status - Relation Status Age at Mother Brother Normal [facility] Erythrocyte distribution wid th Auto (RBC) [Ratio]on 05-02-2025 Erythrocyte distribution width (RBC) [Ratio] Erythrocyte distribution width [Ratio] by Automated count 11.0-15.0 [facility] Estimated glomerular filtrat ion rate (GFR) non- Americanon 05-02-2025 GFR/1.73 sq M.predicted among non-blacks MDRD (S/P/Bld) [Vol rate/Area] Estimated glomerular filtration rate (GFR) non- Low >=60 mL/min/1.73m 2 [facility] Hematocrit Auto (Bld) [Volum e fraction]on 05-02-2025 Hematocrit (Bld) [Volume fraction] Hematocrit [Volume Fraction] of Blood by Automated count 36.0-48.0 [facility] Hemoglobin [Mass/volume] in Bloodon 05-02-2025 Hemoglobin (Bld) [Mass/Vol] Hemoglobin [Mass/volume] in Blood 12.0-16.0 [facility] Laboratory - Chemistry and C hemistry - challengeon 05-02-2025 Albumin [Mass/Vol] 4.1 g/dL 3.4-5.0 [facility] Calcium [Mass/Vol] 9.1 mg/dL 8.5-10.1 [facility] Chloride [Moles/Vol] 104 mmol/L 98-107 [facility] CO2 [Moles/Vol] 29.5 mmol/L 21.0-32.0 [facility] Creatinine [Mass/Vol] 1.45 mg/dL High 0.55-1.02 [facility] GFR/1.73 sq M.predicted MDRD (S/P/Bld) [Vol rate/Area] 41 mL/min/{1.73_m2} Low >=60 mL/min/1.73m 2 [facility] Glucose [Mass/Vol] 223 mg/dL High 74-106 [facility] Magnesium [Mass/Vol] 2.4 mg/dL 1.8-2.4 [facility] Potassium [Moles/Vol] 4.1 mmol/L 3.5-5.1 [facility] Sodium [Moles/Vol] 144 mmol/L 136-145 [facility] Urate [Mass/Vol] 7.7 mg/dL High 2.6-6.0 [facility] Urea nitrogen [Mass/Vol] 37.0 mg/dL High 7.0-18.0 [facility] Urea nitrogen/Creatinine [Mass ratio] 25.5 mg/mg [facility] Laboratory - Urinalysison Protein (U) [Mass/Vol] 17.0 mg/dL High <=11.9 [facility] Leukocytes [#/volume] correc luis for nucleated erythrocytes in Blood by Automated counon 05-02-2025 WBC corrected for nucl RBC Auto (Bld) [#/Vol] Leukocytes [#/volume] corrected for nucleated erythrocytes in Blood by Automated coun 4.0-11.0 [facility] MCH Auto (RBC) [Entitic mass ]on 05-02-2025 MCH (RBC) [Entitic mass] MCH [Entitic mass] by Automated count 26.7-34.0 [facility] MCHC Auto (RBC) [Mass/Vol]on 05-02-2025 MCHC (RBC) [Mass/Vol] MCHC [Mass/volume] by Automated count 29.9-35.2 [facility] MCV Auto (RBC) [Entitic vol] on 05-02-2025 MCV (RBC) [Entitic vol] MCV [Entitic volume] by Automated count 81.0-99.0 [facility] Microalbumin [Mass/volume] i n Urineon 05-02-2025 Albumin DL <= 20 mg/L (U) [Mass/Vol] Microalbumin [Mass/volume] in Urine <=30.0 [facility] No Panel Informationon 05-02 25-Hydroxy Vitamin D Total 50.9 ng/mL [facility] Comment on above: <20 ng/mL Vit D defi cient20-<30 ng/mL Vit D -460 ng/mL Vit D sufficient>100 ng/mL Potential Toxicity Phosphorus Level 3.5 mg/dL 2.6-4.7 [facility] Urine Random Creatinine 55.08 mg/dL 20.00-300.00 [facility] Platelet mean volume Auto (B ld) [Entitic vol]on 05-02-2025 Platelet mean volume (Bld) [Entitic vol] Platelet mean volume [Entitic volume] in Blood by Automated count 9.5-13.5 [facility] Platelets Auto (Bld) [#/Vol] on 05-02-2025 Platelets (Bld) [#/Vol] Platelets [#/volume] in Blood by Automated count 150-450 [facility] RBC Auto (Bld) [#/Vol]on RBC (Bld) [#/Vol] Erythrocytes [#/volume] in Blood by Automated count 4.20-5.40 [facility] Serum or plasma anion gap de terminationon 05-02-2025 Anion gap [Moles/Vol] Serum or plasma an ion gap determination [facility] Urine microalbumin/creatinin e mass ratioon 05-02-2025 Albumin/Creatinine DL <= 20 mg/L (U) [Mass ratio] Urine microalbumin/creatinin e mass ratio High 0.0-29.9 [facility] Comment on above: NO MICROALBUMINURIA 0-29 MG/GCLINICAL MICROALBUMINURIA 30-300 MG/GMACROALBUMINURIA >300 MG/G Urine protein/creatinine rat ioon 05-02-2025 Protein/Creatinine (U) [Ratio] Urine protein/creatinine ratio [facility] CA 125on 03-09-2025 Cancer Ag 125 Qn 8 [arb'U]/mL 0 - 38 U/mL [facility] Comment on above: The Jorje ECLIA as say is used. Results obtained with different assay methods cannot be used interchangeably. [facility] CA 125 8 U/mL Normal 0-38 [facility] Comment on above: Result Comment: The Jorje ECLIA assay is used. Results obtained with different assay methods cannot be used interchangeably. Performed By: #### C A125 #### [facility] [address] [place] [address] Guest Relations Associate: Andrew Blakely MD No Panel Informationon 01-17 [...] discussed. Consent was given by the patient. [facility] Healthcare [facility] Healthcare Office Visiton 11-10-2024 Follow-up visit [id number] Mary Rodriguez 1940 F Date Provider Department Center 11/10/2024 DHEERAJ CARNEY [facility] Family History Problem Relation Age of Onset Heart attack Mother Heart attack Brother Family Status - Relation Status Age at Mother Brother Level of Service:70161 [place] OFFICE/OUTPATIENT ESTABLISHED LOW MDM 20 MIN Reason for Visit and Comments: Valve Disorder [3372] Coronary Artery Disease [187] Atrial Fibrillation [80] Normal [facility] CA 125on 09-08-2024 CA 125 8 U/mL Normal 0-38 [facility] Comment on above: Result Comment: The Optoro ECLIA assay is used. Results obtained with different assay methods cannot be used interchangeably. Performed By: #### C A125 #### [facility] [employer] [address] [place] [id number] Guest Relations Associate: Andrew Blakely MD PROF CHEM 8 (BAS METB)on Anion gap [Moles/Vol] 13.7 mmol/L Normal [facility] Comment on above: Performed By: #### C MP, URIC #### [facility] [address] [place] [id number] Hussein Camacho Calcium [Mass/Vol] 9.7 mg/dL Normal 8.5-10.1 [facility] Comment on above: Performed By: #### C MP, URIC #### [facility] [address] [address] [address] Hussein Camacho Chloride [Moles/Vol] 100 mmol/L Normal 98-107 [facility] Comment on above: Performed By: #### C MP, URIC #### [facility] [address] [address] [address] Hussein Camacho CO2 [Moles/Vol] 29.9 mmol/L Normal 21.0-32.0 [facility] Comment on above: Performed By: #### C MP, URIC #### [facility] [address] [address] [address] Hussein Camacho Creatinine [Mass/Vol] 1.87 mg/dL Critically high 0.55-1.02 [facility] Comment on above: Performed By: #### C MP, URIC #### [facility] [address] [address] [address] Hussein Camacho EGFR-AF MOROCCAN 31 mL/min/1.73m2 Critically low >=60 [facility] Comment on above: Performed By: #### C MP, URIC #### [facility] [address] [address] [address] Hussein Camacho EGFR-NON AF M[place]OCCAN 26 mL/min/1.73m2 Critically low >=60 [facility] Comment on above: Performed By: #### C MP, URIC #### [facility] [address] [address] [address] Hussein Camacho Glucose [Mass/Vol] 146 mg/dL Critically high 74-106 [facility] Comment on above: Performed By: #### C MP, URIC #### [facility] [address] [address] [address] Hussein Camacho Potassium [Moles/Vol] 4.6 mmol/L Normal 3.5-5.1 [facility] Comment on above: Performed By: #### C MP, URIC #### [facility] [address] [address] [address] Hussein Camacho Sodium [Moles/Vol] 139 mmol/L Normal 136-145 [facility] Comment on above: Performed By: #### C MP, URIC #### [facility] [address] [address] [address] Hussein Camacho Urea nitrogen [Mass/Vol] 67.0 mg/dL Critically high 7.0-18.0 [facility] Comment on above: Performed By: #### C MP, URIC #### [facility] [address] [address] [address] Hussein Camacho Urea nitrogen/Creatinine [Mass ratio] 35.8 mg/mg Normal [facility] Comment on above: Performed By: #### C MP, URIC #### [facility] [address] [address] [address] Hussein Camacho US TRANG DOP LEG [...] ELA GASPAR Date: 2023-03-17 17:00 Normal [facility] BNPon 03-12-2023 Natriuretic peptide B (Bld) [Mass/Vol] 3283.0 pg/mL Critically high <=1,800.0 [facility] Comment on above: Performed By: #### C MP, URIC #### [facility] [address] [address] [address] Hussein Camacho D-DIMERon 03-12-2023 D-DIMER 1.34 mg/L FEU Critically high <=0.59 [facility] Comment on above: Performed By: #### C MP, URIC #### [facility] [address] [address] [address] Hussein Camacho D-DIMER COMMENTS SEE BELOW Normal [facility] Comment on above: Result Comment: Incr [...] Performed By: #### C MP, URIC #### [facility] [address] [address] [address] Hussein Camacho PROF CHEM 8 (BAS METB)on Anion gap [Moles/Vol] 12.4 mmol/L Normal [facility] Comment on above: Performed By: #### C MP, URIC #### [facility] [address] [address] [address] Hussein Camacho Calcium [Mass/Vol] 9.6 mg/dL Normal 8.5-10.1 [facility] Comment on above: Performed By: #### C MP, URIC #### [facility] [address] [address] [address] Hussein Camacho Chloride [Moles/Vol] 104 mmol/L Normal 98-107 [facility] Comment on above: Performed By: #### C MP, URIC #### [facility] [address] [address] [address] Hussein Camacho CO2 [Moles/Vol] 29.6 mmol/L Normal 21.0-32.0 [facility] Comment on above: Performed By: #### C MP, URIC #### [facility] [address] [address] [address] Hussein Camacho Creatinine [Mass/Vol] 1.55 mg/dL Critically high 0.55-1.02 [facility] Comment on above: Performed By: #### C MP, URIC #### [facility] [address] [address] [address] Hussein Camacho EGFR-AF MOROCCAN 39 mL/min/1.73m2 Critically low >=60 [facility] Comment on above: Performed By: #### C MP, URIC #### [facility] [address] [address] [address] Hussein Camacho EGFR-NON AF MOROCCAN 32 mL/min/1.73m2 Critically low >=60 [facility] Comment on above: Performed By: #### C MP, URIC #### [facility] [address] [address] [address] Hussein Camacho Glucose [Mass/Vol] 128 mg/dL Critically high 74-106 [facility] Comment on above: Performed By: #### C MP, URIC #### [facility] [address] [address] [address] Hussein Camacho Potassium [Moles/Vol] 3.9 mmol/L Normal 3.5-5.1 [facility] Comment on above: Performed By: #### C MP, URIC #### [facility] [address] [address] [address] Hussein Camacho Sodium [Moles/Vol] 142 mmol/L Normal 136-145 [facility] Comment on above: Performed By: #### C MP, URIC #### [facility] [address] [address] [address] Hussein Camacho Urea nitrogen [Mass/Vol] 49.0 mg/dL Critically high 7.0-18.0 [facility] Comment on above: Performed By: #### C MP, URIC #### [facility] [address] [address] [address] Hussein Camacho Urea nitrogen/Creatinine [Mass ratio] 31.6 mg/mg Normal [facility] Comment on above: Performed By: #### C MP, URIC #### [facility] [address] [address] [address] Hussein Camacho ECHOCARDIO M/2D COMPLETEon 0 03-10-2023 ECHOCARDIO M/2D COMPLETE Patient Name Site Name YESY RODRIGUEZ [facility] Account No Medical Record Number Age Sex Date Time [id number] [facility]:[id number] F 03/10/2023 14:44 At the Request [...] Area (VTI): 0.61 cm2, 0.62 cm2 Deceleration [place]: 1.84 m/s2 Pressure Half-Time: 571.86 ms Peak [...] Wright M.D. on 03/10/2023 at 17:00 Normal [facility] GLYCOHEMOGLOBIN A1Con 2022 ADA RECOMMENDATION SEE BELOW Normal [facility] Comment on above: Result Comment: ADA RECOMMENDED LIMIT 4.0 - 6.0 ADA THERAPEUTIC TARGET < 7.0 ACTION SUGGESTED > 7.0 Performed By: #### A 1C #### [facility] [address] [place] [address] Dr. Hussein Camacho Glucose [Mass/Vol] 154 mg/dL Normal [facility] Comment on above: Performed By: #### A 1C #### [facility] [address] [address] [address] Hussein Camacho HbA1c (Bld) [Mass fraction] 7.0 % Critically high 4.5-6.2 [facility] Comment on above: Performed By: #### A 1C #### [facility] [address] [address] [address] Hussein Camacho PROF CHEM 8 (BAS METB)on Anion gap [Moles/Vol] 8.3 mmol/L Normal [facility] Comment on above: Performed By: #### C MP, URIC #### [facility] [address] [place] [address] Dr. Hussein Camacho Calcium [Mass/Vol] 9.1 mg/dL Normal 8.5-10.1 [facility] Comment on above: Performed By: #### C MP, URIC #### [facility] [address] [place] [address] Dr. Hussein Camacho Chloride [Moles/Vol] 106 mmol/L Normal 98-107 [facility] Comment on above: Performed By: #### C MP, URIC #### [facility] [address] [address] [address] Hussein Camacho CO2 [Moles/Vol] 28.2 mmol/L Normal 21.0-32.0 [facility] Comment on above: Performed By: #### C MP, URIC #### [facility] [address] [place] [address] Dr. Hussein Camacho Creatinine [Mass/Vol] 1.04 mg/dL Critically high 0.55-1.02 [facility] Comment on above: Performed By: #### C MP, URIC #### [facility] [address] [place] [address] Dr. Hussein Camacho EGFR-AF MOROCCAN >60 Normal >=60 [facility] Comment on above: Performed By: #### C MP, URIC #### [facility] [address] [place] [address] Dr. Hussein Camacho EGFR-NON AF MOROCCAN 50 mL/min/1.73m2 Critically low >=60 [facility] Comment on above: Performed By: #### C MP, URIC #### [facility] [address] [address] [address] Hussein Camacho Glucose [Mass/Vol] 122 mg/dL Critically high 74-106 [facility] Comment on above: Performed By: #### C MP, URIC #### [facility] [address] [address] [address] Hussein Camacho Potassium [Moles/Vol] 4.5 mmol/L Normal 3.5-5.1 [facility] Comment on above: Performed By: #### C MP, URIC #### [facility] [address] [address] [address] Hussein Camacho Sodium [Moles/Vol] 138 mmol/L Normal 136-145 [facility] Comment on above: Performed By: #### C MP, URIC #### [facility] [address] [address] [address] Hussein Camacho Urea nitrogen [Mass/Vol] 33.0 mg/dL Critically high 7.0-18.0 [facility] Comment on above: Performed By: #### C MP, URIC #### [facility] [address] [address] [address] Hussein Camacho Urea nitrogen/Creatinine [Mass ratio] 31.7 mg/mg Normal [facility] Comment on above: Performed By: #### C MP, URIC #### [facility] [address] [address] [address] Hussein Camacho CA 125on 01-24-2023 Cancer Ag 125 Qn 9 [arb'U]/mL NINF - 38 U/mL [facility] Comment on above: The Jorje ECLIA as say is used. Results obtained with different assay methods cannot be used interchangeable. [facility] CT HEAD WO CONon 01-13-2023 CT HEAD [...] No acute intracranial abnormality. Electronically authenticated by: KEE MEYER Date: 2023-01-13 13:33 Normal [facility] PROF 14(COMP METB)on 023 Albumin [Mass/Vol] 4.3 g/dL Normal 3.4-5.0 [facility] Comment on above: Performed By: #### C MP #### [facility] [address] [place] [address] Dr. Hussein Camacho Albumin/Globulin [Mass ratio] 1.2 {ratio} Normal [facility] Comment on above: Performed By: #### C MP #### [facility] [address] [place] [address] Dr. Hussein Camacho ALP [Catalytic activity/Vol] 96 U/L Normal 46-116 [facility] Comment on above: Performed By: #### C MP #### [facility] [address] [place] [address] Dr. Hussein Camacho ALT [Catalytic activity/Vol] 43 U/L Normal 14-59 [facility] Comment on above: Performed By: #### C MP #### [facility] [address] [place] [address] Dr. Hussein Camacho Anion gap [Moles/Vol] 13.2 mmol/L Normal [facility] Comment on above: Performed By: #### C MP #### [facility] [address] [place] [address] Dr. Hussein Camacho AST [Catalytic activity/Vol] 30 U/L Normal 15-37 [facility] Comment on above: Performed By: #### C MP #### [facility] [address] [address] [address] Hussein Camacho Bilirubin [Mass/Vol] 0.7 mg/dL Normal 0.2-1.0 [facility] Comment on above: Performed By: #### C MP #### [facility] [address] [address] [address] Hussein Camacho Calcium [Mass/Vol] 9.7 mg/dL Normal 8.5-10.1 [facility] Comment on above: Performed By: #### C MP #### [facility] [address] [address] [address] Hussein Camacho Chloride [Moles/Vol] 105 mmol/L Normal 98-107 [facility] Comment on above: Performed By: #### C MP #### [facility] [address] [address] [address] Hussein Camacho CO2 [Moles/Vol] 28.5 mmol/L Normal 21.0-32.0 [facility] Comment on above: Performed By: #### C MP #### [facility] [address] [address] [address] Hussein Camacho Creatinine [Mass/Vol] 1.48 mg/dL Critically high 0.55-1.02 [facility] Comment on above: Performed By: #### C MP #### [facility] [address] [address] [address] Hussein Camacho EGFR-AF MOROCCAN 41 mL/min/1.73m2 Critically low >=60 [facility] Comment on above: Performed By: #### C MP #### [facility] [address] [address] [address] Hussein Camacho EGFR-NON AF [place]AN 34 mL/min/1.73m2 Critically low >=60 [facility] Comment on above: Performed By: #### C MP #### [facility] [address] [address] [address] Hussein Camacho Globulin (S) [Mass/Vol] 3.6 g/dL Normal [facility] Comment on above: Performed By: #### C MP #### [facility] [address] [address] [address] Hussein Camacho Glucose [Mass/Vol] 140 mg/dL Critically high 74-106 [facility] Comment on above: Performed By: #### C MP #### [facility] [address] [address] [address] Hussein Camacho Potassium [Moles/Vol] 5.7 mmol/L Critically high 3.5-5.1 [facility] Comment on above: Performed By: #### C MP #### [facility] [address] [address] [address] Hussein Camacho Protein [Mass/Vol] 7.9 g/dL Normal 6.4-8.2 [facility] Comment on above: Performed By: #### C MP #### [facility] [address] [address] [address] Hussein Camacho Sodium [Moles/Vol] 141 mmol/L Normal 136-145 [facility] Comment on above: Performed By: #### C MP #### [facility] [address] [address] [address] Hussein Camacho Urea nitrogen [Mass/Vol] 42.0 mg/dL Critically high 7.0-18.0 [facility] Comment on above: Performed By: #### C MP #### [facility] [address] [address] [address] Hussein Camacho Urea nitrogen/Creatinine [Mass ratio] 28.4 mg/mg Normal [facility] Comment on above: Performed By: #### C MP #### [facility] [address] [address] [address] Hussein Camacho MRI Shoulder w/o Lefton [...] by Boaz Weeks on 10/14/2022 1541 Normal [facility] PTH INTACTon 09-12-2022 PTH, Intact 46 pg/mL Normal 15-65 [facility] Comment on above: Performed By: #### P THINT #### [facility] [address] [place] [address] Dr. Hussein Camacho CBC AUTO DIFFon 09-10-2022 BASO # 0.1 103/ul Normal 0.0-0.1 [facility] Comment on above: Performed By: #### C BC #### [facility] [address] [place] [address] Dr. Hussein Camacho Basophils/100 WBC (Bld) 0.8 % Normal 0.2-2.0 [facility] Comment on above: Performed By: #### C BC #### [facility] [address] [place] [address] Dr. Hussein Camacho EO # 0.3 103/ul Normal 0.0-0.7 [facility] Comment on above: Performed By: #### C BC #### [facility] [address] [place] [address] Dr. Hussein Camacho Eosinophils/100 WBC (Bld) 3.3 % Normal 0.9-7.0 [facility] Comment on above: Performed By: #### C BC #### [facility] [address] [place] [address] Dr. Hussein Camacho Erythrocyte distribution width (RBC) [Ratio] 13.6 % Normal 11.0-15.0 [facility] Comment on above: Performed By: #### C BC #### [facility] [address] [place] [address] Dr. Hussein Camacho Hematocrit (Bld) [Volume fraction] 41.5 % Normal 36.0-48.0 [facility] Comment on above: Performed By: #### C BC #### [facility] [address] [place] [address] Dr. Hussein Camacho Hemoglobin (Bld) [Mass/Vol] 13.5 g/dL Normal 12.0-16.0 [facility] Comment on above: Performed By: #### C BC #### [facility] [address] [place] [address] Dr. Hussein Camacho IG # 0.03 10e3/ul Normal 0.00-0.03 [facility] Comment on above: Performed By: #### C BC #### [facility] [address] [place] [address] Dr. Hussein Camacho IG % 0.3 % Normal 0.0-0.5 [facility] Comment on above: Performed By: #### C BC #### [facility] [address] [place] [address] Dr. Hussein Cmaacho LYMPH # 1.3 103/ul Normal 1.2-3.8 [facility] Comment on above: Performed By: #### C BC #### [facility] [address] [place] [address] Dr. Hussein Camacho Lymphocytes/100 WBC (Bld) 12.7 % Critically low 20.5-60.0 [facility] Comment on above: Performed By: #### C BC #### [facility] [address] [place] [address] Dr. Hussein Camacho MANUAL DIFF REQ NO Normal [facility] Comment on above: Performed By: #### C BC #### [facility] [address] [place] [address] Dr. Hussein Camacho MCH (RBC) [Entitic mass] 31.4 pg Normal 26.7-34.0 [facility] Comment on above: Performed By: #### C BC #### [facility] [address] [address] [address] Hussein Camacho MCHC (RBC) [Mass/Vol] 32.5 g/dL Normal 29.9-35.2 [facility] Comment on above: Performed By: #### C BC #### [facility] [address] [address] [address] Husseni Camacho MCV (RBC) [Entitic vol] 96.5 fL Normal 81.0-99.0 [facility] Comment on above: Performed By: #### C BC #### [facility] [address] [address] [address] Hussein Camacho MONO # 0.9 103/ul Critically high 0.3-0.8 [facility] Comment on above: Performed By: #### C BC #### [facility] [address] [address] [address] Hussein Camacho Monocytes/100 WBC (Bld) 9.0 % Normal 1.7-12.0 [facility] Comment on above: Performed By: #### C BC #### [facility] [address] [address] [address] Hussein Camacho NEUT # 7.5 103/ul Critically high 1.4-6.5 [facility] Comment on above: Performed By: #### C BC #### [facility] [address] [address] [address] Hussein Camacho Neutrophils/100 WBC (Bld) 73.9 % Normal 43.0-75.0 [facility] Comment on above: Performed By: #### C BC #### [facility] [address] [address] [address] Hussein Camacho Platelet mean volume (Bld) [Entitic vol] 10.6 fL Normal 9.5-13.5 [facility] Comment on above: Performed By: #### C BC #### [facility] [address] [address] [address] Hussein Camacho PLT 287 103/ul Normal 150-450 [facility] Comment on above: Performed By: #### C BC #### [facility] [address] [place] [address] Dr. Hussein Camacho RBC 4.30 106/ul Normal 4.20-5.40 [facility] Comment on above: Performed By: #### C BC #### [facility] [address] [place] [address] Dr. Hussein Camacho WBC 10.2 103/ul Normal 4.0-11.0 [facility] Comment on above: Performed By: #### C BC #### [facility] [address] [place] [address] Dr. Hussein Camacho PROF 14(COMP METB)on 022 Albumin [Mass/Vol] 4.3 g/dL Normal 3.4-5.0 [facility] Comment on above: Performed By: #### C MP, URIC #### [facility] [address] [place] [address] Dr. Hussein Camacho Albumin/Globulin [Mass ratio] 1.1 {ratio} Normal [facility] Comment on above: Performed By: #### C MP, URIC #### [facility] [address] [place] [address] Dr. Hussein Camacho ALP [Catalytic activity/Vol] 102 U/L Normal 46-116 [facility] Comment on above: Performed By: #### C MP, URIC #### [facility] [address] [place] [address] Dr. Hussein Camacho ALT [Catalytic activity/Vol] 47 U/L Normal 14-59 [facility] Comment on above: Performed By: #### C MP, URIC #### [facility] [address] [place] [address] Dr. Hussein Camacho Anion gap [Moles/Vol] 12.4 mmol/L Normal [facility] Comment on above: Performed By: #### C MP, URIC #### [facility] [address] [place] [address] Dr. Hussein Camacho AST [Catalytic activity/Vol] 23 U/L Normal 15-37 [facility] Comment on above: Performed By: #### C MP, URIC #### [facility] [address] [address] [address] Hussein Camacho Bilirubin [Mass/Vol] 0.4 mg/dL Normal 0.2-1.0 [facility] Comment on above: Performed By: #### C MP, URIC #### [facility] [address] [address] [address] Hussein Camacho Calcium [Mass/Vol] 9.2 mg/dL Normal 8.5-10.1 [facility] Comment on above: Performed By: #### C MP, URIC #### [facility] [address] [address] [address] Hussein Camacho Chloride [Moles/Vol] 102 mmol/L Normal 98-107 [facility] Comment on above: Performed By: #### C MP, URIC #### [facility] [address] [address] [address] Hussein Camacho CO2 [Moles/Vol] 28.5 mmol/L Normal 21.0-32.0 [facility] Comment on above: Performed By: #### C MP, URIC #### [facility] [address] [address] [address] Hussein Camacho Creatinine [Mass/Vol] 1.55 mg/dL Critically high 0.55-1.02 [facility] Comment on above: Performed By: #### C MP, URIC #### [facility] [address] [address] [address] Hussein Camacho EGFR-AF MOROCCAN 39 mL/min/1.73m2 Critically low >=60 [facility] Comment on above: Performed By: #### C MP, URIC #### [facility] [address] [address] [address] Hussein Camacho EGFR-NON AF MOROCCAN 32 mL/min/1.73m2 Critically low >=60 [facility] Comment on above: Performed By: #### C MP, URIC #### [facility] [address] [address] [address] Hussein Camacho Globulin (S) [Mass/Vol] 3.9 g/dL Normal [facility] Comment on above: Performed By: #### C MP, URIC #### [facility] [address] [address] [address] Hussein Camacho Glucose [Mass/Vol] 160 mg/dL Critically high 74-106 [facility] Comment on above: Performed By: #### C MP, URIC #### [facility] [address] [place] [address] Dr. Hussein Camacho Potassium [Moles/Vol] 3.9 mmol/L Normal 3.5-5.1 [facility] Comment on above: Performed By: #### C MP, URIC #### [facility] [address] [place] [address] Dr. Hussein Camacho Protein [Mass/Vol] 8.2 g/dL Normal 6.4-8.2 [facility] Comment on above: Performed By: #### C MP, URIC #### [facility] [address] [place] [address] Dr. Hussein Camacho Sodium [Moles/Vol] 139 mmol/L Normal 136-145 [facility] Comment on above: Performed By: #### C MP, URIC #### [facility] [address] [place] [address] Dr. Hussein Camacho Urea nitrogen [Mass/Vol] 42.0 mg/dL Critically high 7.0-18.0 [facility] Comment on above: Performed By: #### C MP, URIC #### [facility] [address] [place] [address] Dr. Hussein Camacho Urea nitrogen/Creatinine [Mass ratio] 27.1 mg/mg Normal [facility] Comment on above: Performed By: #### C MP, URIC #### [facility] [address] [place] [address] Dr. Hussein Camacho UA RANDOMon 09-10-2022 Bilirubin Ql (U) Negative Normal NEGATIVE [facility] Comment on above: Performed By: #### U A #### [facility] [address] [place] [address] Dr. Hussein Camacho Clarity (U) CLEAR Normal CLEAR [facility] Comment on above: Performed By: #### U A #### [facility] [address] [place] [address] Dr. Hussein Camacho Color (U) LT. YELLOW Normal YELLOW [facility] Comment on above: Performed By: #### U A #### [facility] [address] [address] [address] Hussein Camacho Glucose Ql (U) Negative Normal NEGATIVE [facility] Comment on above: Performed By: #### U A #### [facility] [address] [place] [address] Dr. Hussein Camacho Hemoglobin Ql (U) TRACE-INTACT Abnormal NEGATIVE [facility] Comment on above: Performed By: #### U A #### [facility] [address] [place] [address] Dr. Hussein Camacho Ketones Ql (U) Negative Normal NEGATIVE [facility] Comment on above: Performed By: #### U A #### [facility] [address] [place] [address] Dr. Hussein Camacho LEUKOCYTES SMALL Abnormal NEGATIVE [facility] Comment on above: Performed By: #### U A #### [facility] [address] [place] [address] Dr. Hussein Camacho Nitrite Ql (U) Negative Normal NEGATIVE [facility] Comment on above: Performed By: #### U A #### [facility] [address] [place] [address] Dr. Hussein Camacho pH (U) 6.0 [pH] Normal 5-9 [facility] Comment on above: Performed By: #### U A #### [facility] [address] [place] [address] Dr. Hussein Camacho SPEC GRAVITY 1.020 Normal 1.005-<=1.02 5 [facility] Comment on above: Performed By: #### U A #### [facility] [address] [place] [address] Dr. Hussein Camacho UA PROTEIN Negative Normal NEGATIVE/ TRACE [facility] Comment on above: Performed By: #### U A #### [facility] [address] [place] [address] Dr. Hussein Camacho Urobilinogen Qn (U) 0.2 {Naina'U}/dL Normal 0.2 - 1. 0 [facility] Comment on above: Performed By: #### U A #### [facility] [address] [place] [address] Dr. Hussein Camacho URIC ACID SERUMon 09-10-2022 Urate [Mass/Vol] 7.5 mg/dL Critically high 2.6-6.0 [facility] Comment on above: Performed By: #### C MP, URIC #### [facility] [address] [place] [address] Dr. Hussein Camacho URINE T PROTEIN CREAT RATIOo n 09-10-2022 Protein (U) [Mass/Vol] 7.3 mg/dL Normal <=12.0 [facility] Comment on above: Performed By: #### U RTPCR #### [facility] [address] [place] [address] Dr. Hussein Camacho UR PROT CREAT RAT 0.13 Normal [facility] Comment on above: Performed By: #### U RTPCR #### [facility] [address] [place] [address] Dr. Hussein Camacho URINE CREAT 56.41 mg/dL Normal 20.00-300.00 [facility] Comment on above: Performed By: #### U RTPCR #### [facility] [address] [place] [address] Dr. Hussein Camacho VITAMIN D 25 OHon 09-10-2022 VIT D 25-OH 50.6 ng/mL Normal [facility] Comment on above: Performed By: #### V ITAD #### [facility] [address] [place] [address] Dr. Hussein Camacho VIT D RANGES SEE BELOW Normal [facility] Comment on above: Result Comment: <20 ng/mL Vit D deficient 20 - <30 ng/mL Vit D insufficient 30 - 100 ng/mL Vit D sufficient >100 ng/mL Potential Toxicity Performed By: #### V ITAD #### [facility] Laboratory [address] [place] [address] Dr. Hussein Camacho ECHOCARDIO M/2D COMPLETEon 0 08-21-2022 ECHOCARDIO M/2D COMPLETE Patient: YESY RODRIGUEZ Exam Date: 08/21/2022 : 1940 Gender:F Ordering : KATHARINA JOVEL Admission #: [id number] Family : ZACHARY BOYLE Order #: [id number] CLICK HERE TO VIEW EXAM ECHOCARDIOGRAM REPORT [...] Onel Wright M.D. on 08/23/2022 at 17:05 [facility] [place] 125on 07-10-2022 [place] 125 8 U/mL NINF - 38 U/mL [facility] Comment on above: The Jorje ECLIA as say is used. Results obtained with different assay methods cannot be used interchangeable. [facility] ALBUMIN, RANDOM URINE W/CREA TININEon 06-11-2022 ALBUMIN, URINE 2.5 mg/dL Normal See Note: [facility] Comment on above: Order Comment: FASTI NG:YESFASTING: YES Result Comment: Refe brian Range: Reference Range Not established Performed By: #### 1 0165, 867 #### [facility] [place] [address] [employer]er: Matt Beasley MD ALBUMIN/CREATININE RATIO, RANDOM URINE [...] #### 1 0165, 867 #### [facility] [place] [address] [employer]er: Matt Beasley MD Creatinine (U) [Mass/Vol] 64 mg/dL Normal 20-275 [facility] Comment on above: Order Comment: FASTI NG:YESFASTING: YES Performed By: #### 1 0165, 867 #### [facility] [place] [address] [employer]er: Matt Beasley MD BASIC METABOLIC PANELon 05-31 Calcium [Mass/Vol] 10.0 mg/dL Normal 8.6-10.4 [facility] Comment on above: Performed By: #### 1 016, 867 #### [facility] [place] [address] [employer]er: Matt Beasley MD Chloride [Moles/Vol] 103 mmol/L Normal 98-110 [facility] Comment on above: Performed By: #### 1 164, 867 #### [facility] [place] [address] [employer]er: Matt Beasley MD CO2 [Moles/Vol] 25 mmol/L Normal 20-32 [facility] Comment on above: Performed By: #### 1 016, 867 #### [facility] [place] [address] [employer] Special[employer]er: Matt Beasley MD Creatinine [Mass/Vol] 1.43 mg/dL High 0.60-0.[address] [facility] Comment on above: Performed By: #### 1 016, 867 #### [facility] [place] [address] [employer] Grower: Matt Beasley MD GFR/1.73 sq M.predicted among non-blacks MDRD (S/P/Bld) [Vol rate/Area] 36 mL/min/{1.73_m2} Low > OR = 60 [facility] Comment on above: Result Comment: The eGFR is based on the CKD-EPI 2020 equation. To calculate the new eGFR from a previous Creatinine or Cystatin C result, go to https://www.kidney.org/professionals/ kdoqi/gfr%5Fcalculator Performed By: #### 1 016, 867 #### [facility] [place] [address] [employer]er: Matt Beasley MD Glucose [Mass/Vol] 124 mg/dL High 65-99 [facility] Comment on above: Result Comment: Fasting reference interval For someone without known diabetes, a glucose value between 100 and 125 mg/dL is consistent with prediabetes and should be confirmed with a follow-up test. Performed By: #### 1 0165, 867 #### [facility] [address], [address] [place] [address] [employer]er: Matt Beasley MD Potassium [Moles/Vol] 5.5 mmol/L High 3.5-5.[address] [facility] Comment on above: Performed By: #### 1 164, 867 #### [facility] [address], [address] [place] [address] [employer]er: Matt Beasley MD Sodium [Moles/Vol] 138 mmol/L Normal 135-146 [facility] Comment on above: Performed By: #### 1 016, 867 #### [facility] [address], [address] [place] [address] [employer]er: Matt Beasley MD Urea nitrogen [Mass/Vol] 43 mg/dL High 7-25 [facility] Comment on above: Performed By: #### 1 016, 867 #### [facility] [place] [address] [employer]er: Matt Beasley MD Urea nitrogen/Creatinine [Mass ratio] 30 mg/mg High 6- [facility] Comment on above: Performed By: #### 1 016, 867 #### [facility] [place] [address] [employer]er: Matt Beasley MD HEMOGLOBIN A1con 06-11-2022 HEMOGLOBIN [...] #### 1 0165, 867 #### [facility] [place] [address] [employer]er: Matt Beasley MD ECHOCARDIO M/2D COMPLETEon 0 06-05-2022 ECHOCARDIO M/2D COMPLETE Patient: YESY RODRIGUEZ Exam Date: 06/05/2022 : 1940 Gender:F Ordering : DHEERAJ SESAY Admission #: [id number] Family : ZACHARY BOYLE Order #: [id number] CLICK HERE TO VIEW EXAM ECHOCARDIOGRAM REPORT [...] M.D. on 06/05/2022 at 13:14 Normal [facility] MAMM SCREEN 3D GIRMA CADon 05-29-2022 MAMM SCREEN 3D GIRMA CAD Patient: YESY RODRIGUEZ Exam Date: 05/29/2022 : 1940 Gender:F Ordering : DR ZACHARY BOYLE Admission #: [id number] Family : Order #: [id number] CLICK HERE TO VIEW EXAM RADIOLOGY REPORT [...] ovarian cancer at age 36. LOCATION: [facility] BREAST COMPOSITION: Heterogeneously dense,which may obscure [...] Schreiber MD on 06/11/2022 at 14:06 Normal [facility] PROF CHEM 8 (BAS METB)on Anion gap [Moles/Vol] 15.1 mmol/L Normal [facility] Comment on above: Performed By: #### B MP #### [facility] [address] [address] [address] Hussein Camacho Calcium [Mass/Vol] 9.6 mg/dL Normal 8.5-10.1 [facility] Comment on above: Performed By: #### B MP #### [facility] [address] [place] [address] Dr. Hussein Camacho Chloride [Moles/Vol] 103 mmol/L Normal 98-107 [facility] Comment on above: Performed By: #### B MP #### [facility] [address] [place] [address] [address] Hussein Camacho CO2 [Moles/Vol] 26.0 mmol/L Normal 21.0-32.0 [facility] Comment on above: Performed By: #### B MP #### [facility] [address] [place] [address] Dr. Hussein Camacho Creatinine [Mass/Vol] 1.51 mg/dL Critically high 0.55-1.02 [facility] Comment on above: Performed By: #### B MP #### [facility] [address] [place] [address] Dr. Hussein Camacho EGFR-AF MOROCCAN 40 mL/min/1.73m2 Critically low >=60 [facility] Comment on above: Performed By: #### B MP #### [facility] [address] [place] [address] Dr. Hussein Camacho EGFR-NON AF MOROCCAN 33 mL/min/1.73m2 Critically low >=60 [facility] Comment on above: Performed By: #### B MP #### [facility] [address] [place] [address] Dr. Hussein Camacho Glucose [Mass/Vol] 120 mg/dL Critically high 74-106 [facility] Comment on above: Performed By: #### B MP #### [facility] [address] [place] [address] [address] Hussein Camacho Potassium [Moles/Vol] 5.1 mmol/L Normal 3.5-5.1 [facility] Comment on above: Performed By: #### B MP #### [facility] [address] [place] [address] [address] Hussein Camacho Sodium [Moles/Vol] 139 mmol/L Normal 136-145 [facility] Comment on above: Performed By: #### B MP #### [facility] [address] [place] [address] [address] Hussein Camacho Urea nitrogen [Mass/Vol] 40.0 mg/dL Critically high 7.0-18.0 [facility] Comment on above: Performed By: #### B MP #### [facility] [address] [place] [address] [address] Hussein Camacho Urea nitrogen/Creatinine [Mass ratio] 26.5 mg/mg Normal [facility] Comment on above: Performed By: #### B MP #### [facility] [address] [place] [address] [address] Hussein Camacho Basic Metabolic Panel - Anion gap [Moles/Vol] 10 mmol/L 9 - 17 mmol/L [facility] Calcium [Mass/Vol] 9.8 mg/dL 8.6 - 10. 4 mg/dL [facility] Chloride [Moles/Vol] 104 mmol/L 98 - 10 7 mmol/L [facility] CO2 [Moles/Vol] 25 mmol/L 20 - 31 mmol/L [facility] Creatinine [Mass/Vol] 1.23 mg/dL High 0.50 - 0.90 mg/dL [facility] GFR 51 mL/min Low >60 [facility] GFR Non- 42 mL/min Low >60 [facility] Glucose [Mass/Vol] 133 mg/dL High 70 - 99 mg/dL [facility] Interpretation and review of laboratory results Abnormal [facility] Potassium [Moles/Vol] 4.2 mmol/L 3.7 - 5.3 mmol/L [facility] Sodium [Moles/Vol] 139 mmol/L 135 - 144 mmol/L [facility] Urea nitrogen (BldV) [Mass/Vol] 32 mg/dL High 8 - 23 mg/dL [facility] Urea nitrogen/Creatinine (Bld) [Mass ratio] 26 High [facility] Laboratory - Chemistry and C hemistry - challengeon 03-27-2022 GFR/1.73 sq M.predicted MDRD (S/P/Bld) [Vol rate/Area] [facility] Comment on above: Average GFR for 70 o r more years old: 75 mL/min/1.73sq m Chronic Kidney Disease: <60 mL/min/1.73sq m Kidney failure: <15 mL/min/1.73sq m eGFR calculated using average adult body mass. Additional eGFR calculator available at: http://www.Hullabalu/multiple_crcl_2012.htm Stage 1: Some kidney damage normal GFR Stage 2: Mild kidney damage GFR 60-89 Stage 3: Moderate kidney damage GFR 30-59 Stage 4: Severe kidney damage GFR 15-29 Stage 5: Severe kidney damage GFR <15 ESRD - chronic treatment by dialysis or transplant BASIC METABOLIC PANELon Calcium [Mass/Vol] 10.1 mg/dL Normal 8.6-10.4 [facility] Comment on above: Performed By: #### 1 7306, 905, 58256, 718, 56441, 622, 68548, 496 #### [facility] [address] [employer]er: Matt Beasley MD Chloride [Moles/Vol] 100 mmol/L Normal 98-110 [facility] Comment on above: Performed By: #### 1 7306, 905, 48549, 718, 66511, 622, 91829, 496 #### [facility] [address], [address] [place], [place] [id number] [employer] Grower: Matt Beasley MD CO2 [Moles/Vol] 28 mmol/L Normal 20-32 [facility] Comment on above: Performed By: #### 1 7306, 905, 49425, 718, 32545, 622, 31691, 496 #### [facility] [place] [address] [employer]er: Matt Beasley MD Creatinine [Mass/Vol] 1.89 mg/dL High 0.60-0.[address] [facility] Comment on above: Result Comment: For patients >49 years of age, the reference limit for Creatinine is approximately 13% higher for people identified as -Tanzanian. Performed By: #### 1 7306, 905, 09256, 718, 46907, 622, 65825, 496 #### [facility] [place] [address] [employer]er: Matt Beasley MD eGFR NON-AFR. MOROCCAN 24 mL/min/1.73m2 Low > OR = 60 [facility] Comment on above: Performed By: #### 1 7306, 905, 29309, 718, 52689, 622, 88652, 496 #### [facility] [place] [address] [employer] Grower: Matt Beasley MD GFR/1.73 sq M.predicted among blacks MDRD (S/P/Bld) [Vol rate/Area] 28 mL/min/{1.73_m2} Low > OR = 60 [facility] Comment on above: Performed By: #### 1 7306, 905, 35132, 718, 39775, 622, 28361, 496 #### [facility] [place] [address] [employer]er: Matt Beasley MD Glucose [Mass/Vol] 123 mg/dL High 65-99 [facility] Comment on above: Result Comment: Fasting reference interval For someone without known diabetes, a glucose value between 100 and 125 mg/dL is consistent with prediabetes and should be confirmed with a follow-up test. Performed By: #### 1 7306, 905, 06744, 718, 11162, 622, 21891, 496 #### [facility] [place] [address] [employer]er: Matt Beasley MD Potassium [Moles/Vol] 4.7 mmol/L Normal 3.5-5.3 [facility] Comment on above: Performed By: #### 1 7306, 905, 38652, 718, 67841, 622, 73786, 496 #### [facility] [address], [address] [place] [address] [employer]er: Matt Beasley MD Sodium [Moles/Vol] 136 mmol/L Normal 135-146 [facility] Comment on above: Performed By: #### 1 7306, 905, 12076, 718, 00352, 622, 91532, 496 #### [facility] [address], [address] [place] [address] [employer] Special[employer] Grower: Matt Beasley MD Urea nitrogen [Mass/Vol] 64 mg/dL High 7-25 [facility] Comment on above: Performed By: #### 1 7306, 905, 00094, 718, 42894, 622, 94575, 496 #### [facility] [place] [address] [employer] Grower: Matt Beasley MD Urea nitrogen/Creatinine [Mass ratio] 34 mg/mg High 6-22 [facility] Comment on above: Performed By: #### 1 7306, 905, 45824, 718, 85430, 622, 44289, 496 #### [facility] [address], [address] [place] [address] [employer] Special[employer] Grower: Matt Beasley MD HEMOGLOBIN A1con 03-05-2022 HEMOGLOBIN [...] #### 1 0165, 867 #### [facility] [address], [address] [place] [address] [employer]er: Matt Beasley MD MAGNESIUMon 03-05-2022 Magnesium [Mass/Vol] 2.3 mg/dL Normal 1.5-2.5 [facility] Comment on above: Order Comment: FASTI NG:YES FASTING: YES Performed By: #### 1 7306, 905, 59649, 718, 68702, 622, 71634, 496 #### [facility] [place] [address] [employer] Grower: Matt Beasley MD PHOSPHATE ( PHOSPHORUS)on 03-05-2022 Phosphate [Mass/Vol] 4.5 mg/dL High 2.1-4.3 [facility] Comment on above: Performed By: #### 1 7306, 905, 23267, 718, 27865, 622, 00778, 496 #### [facility] [place] [address] [employer] Special[employer] Grower: Matt Beasley MD PTH, INTACT WITHOUT CALCIUMo [...] High Performed By: #### 1 7306, 905, 63150, 718, 70978, 622, 81491, 496 #### [facility] [address], [address] [place] [address] [employer] Special[employer] Grower: Matt Beasley MD TSH W/REFLEX TO FT4on 2021 TSH W/REFLEX TO FT4 4.31 mIU/L Normal 0.40-4.50 [facility] Comment on above: Performed By: #### 1 7306, 905, 03540, 718, 18671, 622, 39763, 496 #### [facility] [place] [address] [facility], [address] [place], [place] [id number] H[employer] Special[employer] Grower: Matt Beasley MD URIC ACIDon 03-05-2022 Urate [Mass/Vol] 8.7 mg/dL High 2.5-7.0 [facility] Comment on above: Result Comment: Ther apeutic target for gout patients: <6.0 mg/dL Performed By: #### 1 7306, 905, 32382, 718, 72967, 622, 54550, 496 #### [facility] [address], [address] [place], [place] [phone] H[employer] Special[employer] Grower: Matt Beasley MD VITAMIN D,25-OH,TOTAL,IAon 0 03-05-2022 [...] D, (D2,D3), LC/MS/MS is recommended: order code 99012 (patients >2yrs). See Note 1 Note 1 For additional information, please refer to http://education.CloudBees.The Electric Sheep/faq/EPN021 (This link is being provided for informational/ educational purposes only.) Performed By: #### 1 7306, 905, 06424, 718, 65576, 622, 63097, 496 #### [facility] [address], [address] [place] [address] [employer]er: Matt Besaley MD US carotid doppler BIon 01-02 US carotid doppler BI [facility] [place] [address] [place] [address] Ultrasound Report Signed Patient: Yesy Valadez MR#: [id number] 74 : 1940 Acct:[id number] Age/Sex: 81 / F ADM Date: 01/21/22 Loc: RT Room: Type: [facility] Attending Dr: Onel Wright MD Ordering Provider: Onel Wright MD Date of Service: 01/21/22 US/US carotid doppler BI: I65.23 Copies to: Onle Wright MD CAROTID DUPLEX INDICATION: Surveillance study, [...] Kevon Hickman MD01/22/2022 12:41 PM [facility] Tech: Alissa Arguello Transcribed By: DENIA 01/22/22 124 Dictated By: Kevon Hickman MD 01/22/221240 Signed By: 01/22/22 124 Normal [facility] Complete Pulmonary Functiono n 01-21-[address] [facility] [place] [address] Pulmonary Function Signed Patient: Yesy Valadez MR#: [id number] 74 : 1940 Acct:[id number] Age/Sex: 81 / F ADM Date: 01/21/22 Loc: RT Room: Type: [facility] Attending Dr: Onel Wright MD Ordering [...] of 1.17 L or 83% predicted. The UNF64-99% was supranormal at 2.15 L/sec or 214% predicted with this all likely related to the inadequate duration of exhalation. After a 350% longer duration of exhalation on the postbronchodilator effort, the forced vital capacity did improve by 25% to 1.47 L or 76% predicted. There is actually a 14% decline in the FEV1 and a 60% decline in the VVU49-98%. LUNG VOLUMES: Lung volumes by plethysmography indicate [...] MD 01/21/22 1240 Signed By: 01/22/22 1347 [facility] CREATININE BLOODon 2 Creatinine [Mass/Vol] 1.04 mg/dL Normal 0.60-1.20 [facility] Comment on above: Order Comment: No: D o not add to previous draw Performed By: #### 2 5656 #### [facility] [address] [place] [address], [facility] eGFR- non- 50 ml/min/1.73sq m Abnormal >60 [facility] Comment on above: Order Comment: No: D o not add to previous draw Result Comment: Calc ulation may not be valid for patients over 70 years Performed By: #### 2 5656 #### [facility] [address] [place] [address], [facility] GFR/1.73 sq M.predicted among blacks MDRD (S/P/Bld) [Vol rate/Area] mL/min/{1.73_m2} Normal >60 [facility] Comment on above: Order Comment: No: D o not add to previous draw Result Comment: Calc ulation may not be valid for patients over 70 years Performed By: #### 2 5656 #### [facility] [address] [facility]. [address] Cardiovascular Lab Reporton 01-17-2022 Cardiovascular Lab Report [facility] Patient Name: Michael [facility] MR #: [id number] Physician: Onel Tate Department of Vilma Wright Medicine Service Date: 01/16/2022 Division of Birthdate: 1940 Cardiology Room #: [id number] Adult Cardiovascular Services [place] [address] Cardiovascular Laboratory Report INDICATION: The patient is [...] enlarged. She is now brought to the microbiology lab assistant for cardiac catheterization. PROCEDURES: 1. Right heart catheterization. 2. Left heart catheterization. 3. Mitral valve study. 4. Aortic valve study. 5. Bilateral selective coronary angiography. 6. Limited right common femoral angiography. 7. Access into the right common femoral artery and vein under ultrasound guidance. METHODS: Procedure was explained to the patient with risks and benefits. She signed consent. She was brought to microbiology lab assistant in a fasting state. The right groin area was prepped and draped in usual fashion. Micropuncture technique was used for access in the right common femoral artery. Inner cannula angiography was performed followed by upsizing to a 4-North Korean x 11 cm sheath. Access was obtained using same technique in the right common femoral vein and a 6-[place] Korean x 11 cm sheath was placed. A 6-[place] Orosco catheter was used for heart catheterization with measurement pressures and calculation of cardiac output using the estimated ROSE MARIE method. A 4-North Korean JR4 diagnostic catheter was advanced to the [...] selective coronary angiography was then performed using 4-[place] Korean JL4 and JR4 diagnostic catheters. Catheters were [...] 3. Moderately elevated right-sided filling pressures. 4. Rvvsrlvl-ig-lszmfv elevation of the left-sided filling pressures. 5. [...] on (more content not included)... Normal [facility] POC GLUCOSE LABon 01-17-2022 Glucose [Mass/Vol] 109 mg/dL High 70-100 [facility] Comment on above: Performed By: #### 8 5499 #### [facility] [address] BASIC METABOLIC PANELon 01-01 Calcium [Mass/Vol] 9.2 mg/dL Normal 8.6-10.3 [facility] Comment on above: Order Comment: This order is a replacement of the rejected order with accession number [id number]. Performed By: #### 0 0071 #### [facility] [address] [facility] [place] [address], [facility] Chloride [Moles/Vol] 105 mmol/L Normal 98-107 [facility] Comment on above: Order Comment: This order is a replacement of the rejected order with accession number [id number]. Performed By: #### 0 0071 #### [facility] [address] [place] [address], [facility] CO2 [Moles/Vol] 26 mmol/L Normal 21-31 [facility] Comment on above: Order Comment: This order is a replacement of the rejected order with accession number [id number]. Performed By: #### 0 0071 #### [facility] [address] [place] [address], [facility] Creatinine [Mass/Vol] 1.27 mg/dL High 0.60-1.20 [facility] Comment on above: Order Comment: This order is a replacement of the rejected order with accession number [id number]. Performed By: #### 0 0071 #### [facility] [address] [facility] [place] [address], [facility] eGFR- 49 ml/min/1.73sq m Abnormal >60 [facility] Comment on above: Order Comment: This order is a replacement of the rejected order with accession number [id number]. Result Comment: Calc ulation may not be valid for patients over 70 years Performed By: #### 0 0071 #### [facility] [address] [facility] [address] eGFR- non- 40 ml/min/1.73sq m Abnormal >60 [facility] Comment on above: Order Comment: This order is a replacement of the rejected order with accession number [id number]. Result Comment: Calc ulation may not be valid for patients over 70 years Performed By: #### 0 0071 #### [facility] [address] [place] [address], [facility] Glucose [Mass/Vol] 113 mg/dL High 70-100 [facility] Comment on above: Order Comment: This order is a replacement of the rejected order with accession number [id number]. Performed By: #### 0 0071 #### [facility] [address] [place] [address], [facility] Potassium [Moles/Vol] 4.0 mmol/L Normal 3.5-5.1 [facility] Comment on above: Order Comment: This order is a replacement of the rejected order with accession number [id number]. Performed By: #### 0 0071 #### [facility] [address] [place] [address], [place] Sodium [Moles/Vol] 140 mmol/L Normal 136-145 [facility] Comment on above: Order Comment: This order is a replacement of the rejected order with accession number [id number]. Performed By: #### 0 0071 #### [facility] [address] [place] [address], [place] Urea nitrogen [Mass/Vol] 48 mg/dL High 7-25 [facility] Comment on above: Order Comment: This order is a replacement of the rejected order with accession number [id number]. Performed By: #### 0 0071 #### [facility] [address] [place] [address], [place] Calcium [Mass/Vol] 9.3 mg/dL Normal 8.6-10.3 [facility] Comment on above: Performed By: #### 0 0071 #### [facility] [address] [place] [address], [place] Chloride [Moles/Vol] 106 mmol/L Normal 98-107 [facility] Comment on above: Performed By: #### 0 0071 #### [facility] [address] [place] [address], [place] CO2 [Moles/Vol] 27 mmol/L Normal 21-31 [facility] Comment on above: Performed By: #### 0 0071 #### [facility] [address] [place] [address], [place] Creatinine [Mass/Vol] 1.47 mg/dL High 0.60-1.20 [facility] Comment on above: Performed By: #### 0 0071 #### [facility] [address] [place] [address], [place] eGFR- 41 ml/min/1.73sq m Abnormal >60 [facility] Comment on above: Result Comment: Calc ulation may not be valid for patients over 70 years Performed By: #### 0 0071 #### [facility] [address] [place] [address], [facility] eGFR- non- 34 ml/min/1.73sq m Abnormal >60 [facility] Comment on above: Result Comment: Calc ulation may not be valid for patients over 70 years Performed By: #### 0 0071 #### [facility] [address] [place] [address], [place] Glucose [Mass/Vol] 107 mg/dL High 70-100 [facility] Comment on above: Performed By: #### 0 0071 #### [facility] [address] [place] [address], [place] Potassium [Moles/Vol] 4.5 mmol/L Normal 3.5-5.1 [facility] Comment on above: Performed By: #### 0 0071 #### [facility] [address] [place] [address], [facility] Sodium [Moles/Vol] 141 mmol/L Normal 136-145 [facility] Comment on above: Performed By: #### 0 0071 #### [facility] [address] [place] [address], [place] Urea nitrogen [Mass/Vol] 51 mg/dL High 7-25 [facility] Comment on above: Performed By: #### 0 0071 #### [facility] [address] [place] [address], [place] CBC COMPLETE BLOOD COUNTon 0 2- Erythrocyte distribution width (RBC) [Ratio] 15.6 % High 11.5-15.0 [facility] Comment on above: Performed By: #### 5 0608 #### [facility] [address] [place] [address], [place] Hematocrit (Bld) [Volume fraction] 39.3 % Normal 36.0-45.0 [facility] Comment on above: Performed By: #### 5 0608 #### [facility] [address] [place] [address], [facility] Hemoglobin (Bld) [Mass/Vol] 12.2 g/dL Normal 12.0-15.0 [facility] Comment on above: Performed By: #### 5 0608 #### [facility] [address] [place] [address], [facility] MCH (RBC) [Entitic mass] 28.7 pg Normal 27.0-33.0 [facility] Comment on above: Performed By: #### 5 0608 #### [facility] [address] [place] [address], [facility] MCHC (RBC) [Mass/Vol] 31.0 g/dL Low 32.0-35.0 [facility] Comment on above: Performed By: #### 5 0608 #### [facility] [address] [place] [address], [facility] MCV (RBC) [Entitic vol] 92.5 fL Normal 82.0-98.0 [facility] Comment on above: Performed By: #### 5 0608 #### [facility] [address] [facility] [address] Nucleated RBC/100 WBC (Bld) [Ratio] 0 % Normal 0-0 [facility] Comment on above: Performed By: #### 5 0608 #### [facility] [address] [place] [address], [facility] PLAT CNT 278 10*3/uL Normal 150-400 [facility] Comment on above: Performed By: #### 5 0608 #### [facility] [address] [place] [id number], [facility] RBC (Bld) [#/Vol] 4.25 10*6/uL Normal 3.80-5.00 [facility] Comment on above: Performed By: #### 5 0608 #### [facility] [address] [place] [address], [facility] WBC (Bld) [#/Vol] 8.68 10*3/uL Normal 4.00-10.60 [facility] Comment on above: Performed By: #### 5 0608 #### [facility] [address] [place] [address], [facility] BASIC METABOLIC PANELon 12-01 Calcium [Mass/Vol] 10.2 mg/dL Normal 8.6-10.4 [facility] Comment on above: Order Comment: FASTI NG:YESFASTING: YES Performed By: #### 1 164, 867 #### [facility] [place] [address] [employer]: Matt Beasley MD Chloride [Moles/Vol] 100 mmol/L Normal 98-110 [facility] Comment on above: Order Comment: FASTI NG:YESFASTING: YES Performed By: #### 1 164, 867 #### [facility] [place] [address] [employer]: Matt Beasley MD CO2 [Moles/Vol] 28 mmol/L Normal 20-32 [facility] Comment on above: Order Comment: FASTI NG:YESFASTING: YES Performed By: #### 1 164, 867 #### [facility] [place] [address] [employer]: Matt Beasley MD Creatinine [Mass/Vol] 1.54 mg/dL High 0.60-0.[address] [facility] Comment on above: Order Comment: FASTI NG:YESFASTING: YES Result Comment: For patients >49 years of age, the reference limit for Creatinine is approximately 13% higher for people identified as -Tanzanian. Performed By: #### 1 164, 867 #### [facility] [address], [address] [place] [address] [employer]: Matt Beasley MD eGFR NON-AFR. MOROCCAN 31 mL/min/1.73m2 Low > OR = 60 [facility] Comment on above: Order Comment: FASTI NG:YESFASTING: YES Performed By: #### 1 016, 867 #### [facility] [address], [address] [place] [address] [employer]: Matt Beasley MD GFR/1.73 sq M.predicted among blacks MDRD (S/P/Bld) [Vol rate/Area] 36 mL/min/{1.73_m2} Low > OR = 60 [facility] Comment on above: Order Comment: FASTI NG:YESFASTING: YES Performed By: #### 1 016, 867 #### [facility] [address], [address] [place] [address] [employer]: Matt Beasley MD Glucose [Mass/Vol] 119 mg/dL High 65-99 [facility] Comment on above: Order Comment: FASTI NG:YESFASTING: YES Result Comment: Fasting reference interval For someone without known diabetes, a glucose value between 100 and 125 mg/dL is consistent with prediabetes and should be confirmed with a follow-up test. Performed By: #### 1 016, 867 #### [facility] [address], [address] [place] [address] [employer]: Matt Beasley MD Potassium [Moles/Vol] 4.1 mmol/L Normal 3.5-5.3 Pending Sale To [facility] Comment on above: Order Comment: FASTI NG:YESFASTING: YES Performed By: #### 1 164, 867 #### [facility] [address], [address] [place] [address] [employer]: Matt Beasley MD Sodium [Moles/Vol] 140 mmol/L Normal 135-146 [facility] Comment on above: Order Comment: FASTI NG:YESFASTING: YES Performed By: #### 1 0165, 867 #### [facility] [address], [address] [place] [address] [employer]: Matt Beasley MD Urea nitrogen [Mass/Vol] 45 mg/dL High 7-25 [facility] Comment on above: Order Comment: FASTI NG:YESFASTING: YES Performed By: #### 1 164, 867 #### [facility] [place] [address] [employer]er: Matt Beasley MD Urea nitrogen/Creatinine [Mass ratio] 29 mg/mg High 6-22 [facility] Comment on above: Order Comment: FASTI NG:YESFASTING: YES Performed By: #### 1 164, 867 #### [facility] [place] [address] [employer]: Matt Beasley MD BASIC METABOLIC PANEL 11-2 Calcium [Mass/Vol] 10.1 mg/dL Normal 8.6-10.4 [facility] Comment on above: Performed By: #### 1 164, 867 #### [facility] [place] [address] [employer]er: Matt Beasley MD Chloride [Moles/Vol] 103 mmol/L Normal 98-110 [facility] Comment on above: Performed By: #### 1 164, 867 #### [facility] [place] [address] [employer]er: Matt Beasley MD CO2 [Moles/Vol] 28 mmol/L Normal 20-32 [facility] Comment on above: Performed By: #### 1 164, 867 #### [facility] [place] [address] [employer]er: Matt Beasley MD Creatinine [Mass/Vol] 1.29 mg/dL High 0.60-0.[address] [facility] Comment on above: Result Comment: For patients >49 years of age, the reference limit for Creatinine is approximately 13% higher for people identified as -Tanzanian. Performed By: #### 1 164, 867 #### [facility] [address] [place] [address] [employer]: Matt Beasley MD eGFR NON-AFR. MOROCCAN 38 mL/min/1.73m2 Low > OR = 60 [facility] Comment on above: Performed By: #### 1 016, 867 #### [facility] [place] [address] [employer]er: Matt Beasley MD GFR/1.73 sq M.predicted among blacks MDRD (S/P/Bld) [Vol rate/Area] 44 mL/min/{1.73_m2} Low > OR = 60 [facility] Comment on above: Performed By: #### 1 016, 867 #### [facility] [place] [address] [employer]er: Matt Beasley MD Glucose [Mass/Vol] 107 mg/dL High 65-99 [facility] Comment on above: Result Comment: Fasting reference interval For someone without known diabetes, a glucose value between 100 and 125 mg/dL is consistent with prediabetes and should be confirmed with a follow-up test. Performed By: #### 1 016, 867 #### [facility] [place] [address] [employer]: Matt Beasley MD Potassium [Moles/Vol] 4.1 mmol/L Normal 3.5-5.3 P[facility] Comment on above: Performed By: #### 1 164, 867 #### [facility] [place] [address] [employer]er: Matt Beasley MD Sodium [Moles/Vol] 139 mmol/L Normal 135-146 [facility] Comment on above: Performed By: #### 1 016, 867 #### [facility] [place] [address] [employer]: Matt Beasley MD Urea nitrogen [Mass/Vol] 30 mg/dL High 7-25 [facility] Comment on above: Performed By: #### 1 016, 867 #### [facility] of [address], [address] [place] [address] [employer]: Matt Beasley MD Urea nitrogen/Creatinine [Mass ratio] 23 mg/mg High 05-22 [facility] Comment on above: Performed By: #### 1 0165, 867 #### [facility] [address], [address] [place] [address] [employer]: Matt Beasley MD T4 (THYROXINE), TOTALon 10-02 T4 [Mass/Vol] 7.8 ug/dL Normal 5.1-11.9 [facility] Comment on above: Performed By: #### 1 0165, 867 #### [facility] [address], [address] [place] [address] [employer]: Matt Beasley MD TSHon 10-23-2021 TSH Qn 7.48 m[IU]/L High 0.40-4.50 [facility] Comment on above: Performed By: #### 1 0165, 867 #### [facility] [address], [address] [place] [address] [employer]er: Matt Beasley MD CA 125on 09-26-2021 CA 125 26 U/mL Normal <38 [facility] Comment on above: Performed By: #### C A125 #### [employer] [address] [place] [phone] Guest Relations Associate: Andrew Blakely MD CA 125Ordered By: Anabel Babb on on 09-26-2021 CA 125 26 U/mL <38 [facility] Work Phone: [facility] [employer] Work Phone: Microscopic UrinalysisOrdere d By: Anabel Duncan on 09-26-2021 - [employer] Work Phone: Amorphous, UA NOT REPORTED None [facility] Work Phone: Bacteria, UA NOT REPORTED None [facility] Work Phone: Casts UA NOT REPORTED [facility] [employer] Work Phone: Crystals, UA NOT REPORTED None /HPF [facility] Work Phone: Epithelial Cells UA 0 TO 2 [facility] Work Phone: Mucus, UA NOT REPORTED None [facility] [employer] Work Phone: Other Observations UA NOT REPORTED NOT REQ. M [facility] [employer] Work Phone: RBC, UA 2 TO 5 [facility] [employer] Work Phone: Comment on above: Reference range defi margarita for non-centrifuged specimen. Renal Epithelial, UA NOT REPORTED 0 /HPF [facility] [employer] Work Phone: Trichomonas, UA NOT REPORTED None [facility] Work Phone: WBC, UA 0 TO 2 [facility] [employer] Work Phone: Yeast, UA NOT REPORTED None [facility] [employer] Work Phone: [facility] [employer] Work Phone: UA w/Reflex Cultureon 2020 Bilirubin, SemiQt,Ur Negative Normal NEG [facility] Comment on above: Performed By: #### U AX, UMICAO #### [facility] [employer] [address] [place] [address] [phone] Guest Relations Associate: Andrew Blakely MD Blood, Urine Negative Normal NEG [facility] Comment on above: Performed By: #### U AX, UMICAO #### [facility] [address] [place], [place] [phone] Guest Relations Associate: Andrew Blakely MD Clarity (U) Clear Normal CLEAR [facility] Comment on above: Performed By: #### U AX, UMICAO #### [facility] [employer] [address] [place] [address] [phone] Guest Relations Associate: Andrew Blakely MD Color (U) Yellow Normal YEL [facility] Comment on above: Performed By: #### U AX, UMICAO #### [facility] [address] [place] [phone] Guest Relations Associate: Andrew Blakely MD Glucose Ql (U) Negative Normal NEG [facility] Comment on above: Performed By: #### U AX, UMICAO #### [facility] [address] [place] [phone] Guest Relations Associate: Andrew Blakely MD Ketones Ql (U) Negative Normal NEG [facility] Comment on above: Performed By: #### U AX, UMICAO #### [facility] [address] [place] [phone] Guest Relations Associate: Andrew Blakely MD Leukocyte esterase Test strip Ql (U) TRACE Abnormal NEG [facility] Comment on above: Performed By: #### U AX, UMICAO #### [facility] [employer] [address] [place] [phone] Guest Relations Associate: Andrew Blakely MD Nitrite,Ur Negative Normal NEG [facility] Comment on above: Performed By: #### U AX, UMICAO #### [facility] [employer] [address] [place] [phone] Guest Relations Associate: Andrew Blakely MD PH,Ur 7.0 Normal 5.0-8.0 [facility] Comment on above: Performed By: #### U AX, UMICAO #### [facility] [address] [place] [phone] Guest Relations Associate: Andrew Blakely MD Protein Ql (U) Negative Normal NEG [facility] Comment on above: Performed By: #### U AX, UMICAO #### [facility] [address] [place] [phone] Guest Relations Associate: Andrew Blakely MD Spec. Custer,Ur 1.015 Normal 1.005-1.030 [facility] Comment on above: Performed By: #### U AX, UMICAO #### [facility] [address] [place], [place] [phone] Guest Relations Associate: Andrew Blakely MD Urobilinogen,Ur Normal Normal NORM [facility] Comment on above: Performed By: #### U AX, UMICAO #### [facility] [address] [place], [place] [phone] Guest Relations Associate: Andrew Blakely MD Comment NOT REPORTED Normal [facility] Comment on above: Performed By: #### U AX, UMICAO #### [facility] [address] [place], [place] [phone] Guest Relations Associate: Andrew Blakely MD Urinalysis Reflex to Culture Ordered By: Anabel Duncan on 09-26-2021 Bilirubin Urine Negative NEGATIVE [facility] Work Phone: Color, UA Yellow Yellow [facility] [employer] Work Phone: Glucose, Ur Negative NEGATIVE [facility] [employer] Work Phone: Interpretation and review of laboratory results Abnormal [facility] [employer] Work Phone: Ketones Ql (U) Negative NEGATIVE [facility] Work Phone: Leukocyte esterase Test strip Ql (U) TRACE Abnormal NEGATIVE [facility] [employer] Phone: Nitrite, Urine Negative NEGATIVE [facility] Work Phone: pH, UA 7.0 [facility] [employer] Work Phone: Protein, UA Negative NEGATIVE [facility] [employer] Work Phone: Specific Custer, UA 1.015 [facility] [employer] Work Phone: Turbidity UA Clear Clear [facility] [employer] Work Phone: Urinalysis Comments NOT REPORTED [facility] [employer] Work Phone: Urine Hgb Negative NEGATIVE [facility] [employer] Work Phone: Urobilinogen, Urine Normal Normal [facility] [employer] Work Phone: [facility] [employer] Work Phone: Urinalysis,Microon 1 ----- Normal [facility] Comment on above: Performed By: #### U AX, UMICAO #### [facility] [employer] [address] [place] [phone] Guest Relations Associate: Andrew Blakely MD Epithelial cells LM Ql (Urine sed) 0 TO 2 Normal 0-5 [facility] Comment on above: Performed By: #### U AX, UMICAO #### [facility] [employer] [address] [place] [phone] Guest Relations Associate: Andrew Blakely MD Urine RBC's 2 TO 5 Normal 0-4 [facility] Comment on above: Result Comment: Refe rence range defined for non-centrifuged specimen. Performed By: #### U AX, UMICAO #### [facility] [employer] [address] [place] [phone] Guest Relations Associate: Andrew Blakely MD Urine WBC's 0 TO 2 Normal 0-5 [facility] Comment on above: Performed By: #### U AX, UMICAO #### [facility] [address] [place] [phone] Guest Relations Associate: Andrew Blakely MD Amorphous sediment LM Ql (Urine sed) NOT REPORTED Normal NONE [facility] Comment on above: Performed By: #### U AX, UMICAO #### [facility] [address] [place] [phone] Guest Relations Associate: Andrew Blakely MD Bacteria NOT REPORTED Normal NONE [facility] Comment on above: Performed By: #### U AX, UMICAO #### [facility] [employer] [address] [place] [phone] Guest Relations Associate: Andrew Blakely MD Casts NOT REPORTED Normal 0-8 [facility] Comment on above: Performed By: #### U AX, UMICAO #### [facility] [employer] [address] [place] [phone] Guest Relations Associate: Andrew Blakely MD Crystals LM Nom (Urine sed) NOT REPORTED Normal NONE [facility] Comment on above: Performed By: #### U AX, UMICAO #### [address] [phone] Guest Relations Associate: Andrew Blakely MD Epithelial, Renal NOT REPORTED Normal 0 [facility] Comment on above: Performed By: #### U AX, UMICAO #### [facility] [employer] [address] [place] [phone] Guest Relations Associate: Andrew Blakely MD Mucus Strands NOT REPORTED Normal NONE [facility] Comment on above: Performed By: #### U AX, UMICAO #### [facility] [employer] [address] [place] [phone] Guest Relations Associate: Andrew Blakely MD Other Observations NOT REPORTED Normal NREQ [facility] Comment on above: Performed By: #### U AX, UMICAO #### [facility] [employer] [address] [place] [phone] Guest Relations Associate: Andrew Blakely MD Trichomonas NOT REPORTED Normal NONE [facility] Comment on above: Performed By: #### U AX, UMICAO #### [facility] [employer] [address] [place] [phone] Guest Relations Associate: Andrew Blakely MD Yeast NOT REPORTED Normal NONE [facility] Comment on above: Performed By: #### U AX, UMICAO #### [facility] [employer] [address] [place] [phone] Guest Relations Associate: Andrew Blakely MD COMPREHENSIVE METABOLIC PANE [facility] 07-27-2021 Albumin [Mass/Vol] 4.4 g/dL Normal 3.6-5.1 [facility] Comment on above: Performed By: #### 1 0165, 867 #### [facility] of [place] [address] [employer]: Matt Beasley MD Albumin/Globulin [Mass ratio] 1.8 {ratio} Normal 1.0-2.5 [facility] Comment on above: Performed By: #### 1 0165, 867 #### [facility] of [place] [address] [employer]: Matt Beasley MD ALP [Catalytic activity/Vol] 67 U/L Normal 37-153 [facility] Comment on above: Performed By: #### 1 0165, 867 #### [facility] of [place] [address] [employer]er: Matt Beasley MD ALT [Catalytic activity/Vol] 10 U/L Normal 6-29 [facility] Comment on above: Performed By: #### 1 0165, 867 #### [facility] of [place] [address] [employer]er: Matt Beasley MD AST [Catalytic activity/Vol] 17 U/L Normal 10-35 [facility] Comment on above: Performed By: #### 1 0165, 867 #### [facility] of [place] [address] [employer]er: Matt Beasley MD Bilirubin [Mass/Vol] 0.4 mg/dL Normal 0.2-1.2 [facility] Comment on above: Performed By: #### 1 0165, 867 #### [facility] of [place] [address] [employer]er: Matt Beasley MD Calcium [Mass/Vol] 9.8 mg/dL Normal 8.6-10.4 [facility] Comment on above: Performed By: #### 1 0165, 867 #### [facility] of [place] [address] [employer]er: Matt Beasley MD Chloride [Moles/Vol] 104 mmol/L Normal 98-110 [facility] Comment on above: Performed By: #### 1 164, 867 #### [facility] [place] [address] [employer]er: Matt Beasley MD CO2 [Moles/Vol] 25 mmol/L Normal 20-32 [facility] Comment on above: Performed By: #### 1 164, 867 #### [facility] [place] [address] [employer]er: Matt Beasley MD Creatinine [Mass/Vol] 1.37 mg/dL High 0.60-0.[address] [facility] Comment on above: Result Comment: For patients >49 years of age, the reference limit for Creatinine is approximately 13% higher for people identified as -Tanzanian. Performed By: #### 1 164, 867 #### [facility] [place] [address] [employer]er: Matt Beasley MD eGFR NON-AFR. MOROCCAN 36 mL/min/1.73m2 Low > OR = 60 [facility] Comment on above: Performed By: #### 1 164, 867 #### [facility] [place] [address] [employer]er: Matt Beasley MD GFR/1.73 sq M.predicted among blacks MDRD (S/P/Bld) [Vol rate/Area] 41 mL/min/{1.73_m2} Low > OR = 60 [facility] Comment on above: Performed By: #### 1 164, 867 #### [facility] [place] [address] [employer]er: Matt Beasley MD Globulin (S) [Mass/Vol] 2.5 g/dL Normal 1.9-3.7 [facility] Comment on above: Performed By: #### 1 164, 867 #### [facility] [address] [phone] [employer]: Matt Beasley MD Glucose [Mass/Vol] 97 mg/dL Normal 65-99 [facility] Comment on above: Result Comment: Fasting reference interval Performed By: #### 1 0165, 867 #### [facility] [place] [address] [employer]er: Matt Beasley MD Potassium [Moles/Vol] 5.3 mmol/L Normal 3.5-5.3 Pending [facility] Comment on above: Performed By: #### 1 016, 867 #### [facility] [place] [address] [employer]er: Matt Beasley MD Protein [Mass/Vol] 6.9 g/dL Normal 6.1-8.1 [facility] Comment on above: Performed By: #### 1 164, 867 #### [facility] [place] [address] [employer]er: Matt Beasley MD Sodium [Moles/Vol] 137 mmol/L Normal 135-146 [facility] Comment on above: Performed By: #### 1 0165, 867 #### [facility] [place] [address] [employer]er: Matt Beasley MD Urea nitrogen [Mass/Vol] 25 mg/dL Normal 7-25 [facility] Comment on above: Performed By: #### 1 0165, 867 #### [facility] [place] [address] [employer]: Matt Beasley MD Urea nitrogen/Creatinine [Mass ratio] 18 mg/mg Normal 6-22 [facility] Comment on above: Performed By: #### 1 0165, 867 #### [facility] [place] [address] Horticultural Specialty Grower: Matt Beasley MD LIPID PANEL, [facility] 07-02 Cholesterol [Mass/Vol] 159 mg/dL Normal <200 [facility] Comment on above: Performed By: #### 1 164, 867 #### [facility] [address], [address] [place] [address] Horticultural Specialty Grower: Matt Beasley MD Cholesterol in HDL [Mass/Vol] 63 mg/dL Normal > OR = 50 [facility] Comment on above: Performed By: #### 1 164, 867 #### [facility] [address], [address] [place] [address] Horticultural Specialty Grower: Matt Beasley MD Cholesterol in LDL [Mass/Vol] [...] LDL-C. Sawyer YIP et al. TORY. 2013;310(19): 4009-5684 (http://[email or web address].The Electric Sheep/faq/[email or web address]) Performed By: #### 1 164, 867 #### [facility] [place] [address] Horticultural Specialty Grower: Matt Beasley MD Cholesterol.total/Cho lesterol in HDL [Mass ratio] 2.5 {ratio} Normal <5.0 [facility] Comment on above: Performed By: #### 1 164, 867 #### [facility] [address], [address] [place] [address] Horticultural Specialty Grower: Matt Beasley MD NON HDL CHOLESTEROL 96 mg/dL (calc) Normal <130 [facility] Comment on above: Result Comment: For patients with diabetes plus 1 major ASCVD risk factor, treating to a non-HDL-C goal of <100 mg/dL (LDL-C of <70 mg/dL) is considered a therapeutic option. Performed By: #### 1 016, 867 #### [facility] [address], [address] [place] [address] Horticultural Specialty Grower: Matt Beasley MD Triglyceride [Mass/Vol] 156 mg/dL High <150 [facility] Comment on above: Performed By: #### 1 0165, 867 #### [facility] [address], [address] [place] [address] Horticultural Specialty Grower: Matt Beasley MD UA w/Reflex Cultureon 2020 Bilirubin, SemiQt,Ur Negative Normal NEG [facility] Comment on above: Performed By: #### U AX, UMICAO #### [facility] [address] [place] [phone] Guest Relations Associate: Andrew Blakely MD Blood, Urine Negative Normal NEG [facility] Comment on above: Performed By: #### U AX, UMICAO #### [facility] [address] [place] [phone] Guest Relations Associate: Andrew Blakely MD Clarity (U) CLEAR Normal CLEAR [facility] Comment on above: Performed By: #### U AX, UMICAO #### [facility] [address] [place] [phone] Guest Relations Associate: Andrew Blakely MD Color (U) YELLOW Normal YEL [facility] Comment on above: Performed By: #### U AX, UMICAO #### [facility] [address] [place] [address] [phone] Guest Relations Associate: Andrew Blakely MD Glucose Ql (U) Negative Normal NEG [facility] Comment on above: Performed By: #### U AX, UMICAO #### [facility] [address] [place] [phone] Guest Relations Associate: Andrew Blakely MD Ketones Ql (U) Negative Normal NEG [facility] Comment on above: Performed By: #### U AX, UMICAO #### [facility] [address] [place] [address] [phone] Guest Relations Associate: Andrew Blakely MD Leukocyte esterase Test strip Ql (U) MODERATE Abnormal NEG [facility] Comment on above: Performed By: #### U AX, UMICAO #### [facility] [address] [place] [address] [phone] Guest Relations Associate: Andrew Blakely MD Nitrite,Ur Negative Normal NEG [facility] Comment on above: Performed By: #### U AX, UMICAO #### [facility] [address] [place] [address] [phone] Guest Relations Associate: Andrew Blakely MD PH,Ur 6.5 Normal 5.0-8.0 [facility] Comment on above: Performed By: #### U AX, UMICAO #### [facility] [address] [place] [address] [phone] Guest Relations Associate: Andrew Blakely MD Protein Ql (U) Negative Normal NEG [facility] Comment on above: Performed By: #### U AX, UMICAO #### [facility] [address] [place] [address] [phone] Guest Relations Associate: Andrew Blakely MD Spec. Custer,Ur 1.006 Normal 1.005-1.030 [facility] Comment on above: Performed By: #### U AX, UMICAO #### [facility] [employer] [address] [place] [address] [phone] Guest Relations Associate: Andrew Blakely MD Urobilinogen,Ur Normal Normal NORM [facility] Comment on above: Performed By: #### U AX, UMICAO #### [facility] [address] [place] [address] [phone] Guest Relations Associate: Andrew Blakely MD Comment NOT REPORTED Normal [facility] Comment on above: Performed By: #### U AX, UMICAO #### [facility] [employer] [address] [place] [address] [phone] Guest Relations Associate: Andrew Blakely MD Urinalysis,Microon 1 ----- Normal [facility] Comment on above: Performed By: #### U AX, UMICAO #### [facility] [address] [place] [address] [phone] Guest Relations Associate: Andrew Blakely MD Bacteria MANY Abnormal NONE [facility] Comment on above: Performed By: #### U AX, UMICAO #### [facility] [address] [place] [address] [phone] Guest Relations Associate: Andrew Blakely MD Epithelial cells LM Ql (Urine sed) 0 TO 2 Normal 0-5 [facility] Comment on above: Performed By: #### U AX, UMICAO #### [facility] [address] [place] [address] [phone] Guest Relations Associate: Andrew Blakely MD Urine RBC's 0 TO 2 Normal 0-2 [facility] Comment on above: Performed By: #### U AX, UMICAO #### [facility] [address] [place] [address] [phone] Guest Relations Associate: Andrew Blakely MD Urine WBC's 2 TO 5 Normal 0-5 [facility] Comment on above: Performed By: #### U AX, UMICAO #### [facility] [address] [place] [address] [phone] Guest Relations Associate: Andrew Blakely MD Amorphous sediment LM Ql (Urine sed) NOT REPORTED Normal [facility] Comment on above: Performed By: #### U AX, UMICAO #### [facility] [address] [place] [address] [phone] Guest Relations Associate: Andrew Blakely MD Casts NOT REPORTED Normal 0-2 [facility] Comment on above: Performed By: #### U AX, UMICAO #### [facility] [address] [place] [address] [phone] Guest Relations Associate: Andrew Blakely MD Crystals LM Nom (Urine sed) NOT REPORTED Normal NONE [facility] Comment on above: Performed By: #### U AX, UMICAO #### [facility] [address] [place] [address] [phone] Guest Relations Associate: Andrew Blakely MD Epithelial, Renal NOT REPORTED Normal 0 [facility] Comment on above: Performed By: #### U AX, UMICAO #### [facility] [address] [place] [address] [phone] Guest Relations Associate: Andrew Blakely MD Mucus Strands NOT REPORTED Normal NONE [facility] Comment on above: Performed By: #### U AX, UMICAO #### [facility] [address] [place] [address] [phone] Guest Relations Associate: Andrew Blakely MD Other Observations NOT REPORTED Normal NREQ [facility] Comment on above: Performed By: #### U AX, UMICAO #### [facility] [address] [place] [address] [phone] Guest Relations Associate: Andrew Blakely MD Trichomonas NOT REPORTED Normal NONE [facility] Comment on above: Performed By: #### U AX, UMICAO #### [facility] [address] [place] [address] [phone] Guest Relations Associate: Andrew Blakely MD Yeast NOT REPORTED Normal NONE [facility] Comment on above: Performed By: #### U AX, UMICAO #### [facility] [address] [place] [address] [phone] Guest Relations Associate: Andrew Blakely MD Vital Signs Date Time Vital Sign Value Performing Clinician Facility 08-02-2025 13:29-0400 Body height 139.7 cm Soraida Bethea OCCUPANCY SPECIALIST Work Phone: [facility] 08-02-2025 13:29-0400 Body mass index (BMI) [Ratio] 27.89 kg/m2 Soraida Bethea OCCUPANCY SPECIALIST Work Phone: [facility] 08-02-2025 13:29-0400 Body weight 54.43 kg Soraida Lunak OCCUPANCY SPECIALIST Work Phone: [facility] 08-02-2025 13:29-0400 Diastolic blood pressure 70 mm[Hg] Soraida Singhpatrick OCCUPANCY SPECIALIST Work Phone: [facility] 08-02-2025 13:29-0400 Heart rate 83 /min Soraida Turciostrick OCCUPANCY SPECIALIST Work Phone: [facility] 08-02-2025 13:29-0400 SaO2% (BldA) [Mass fraction] 96 % Soraida Turciostrick OCCUPANCY SPECIALIST Work Phone: [facility] 08-02-2025 13:29-0400 Systolic blood pressure 124 mm[Hg] Soraida Singhpatrick OCCUPANCY SPECIALIST Work Phone: [facility] 05-10-2025 11:33-0400 Body height 149.86 cm [facility] 05-10-2025 11:33-0400 Body mass index (BMI) [Ratio] 24.4 kg/m2 [facility] 05-10-2025 11:33-0400 Body weight 54.88 kg [facility] 05-10-2025 11:33-0400 Diastolic blood pressure 62 mm[Hg] [facility] 05-10-2025 11:33-0400 Heart rate 63 /min [facility] 05-10-2025 11:33-0400 Respiratory rate 16 /min [facility] 05-10-2025 11:33-0400 SaO2% (BldA) [Mass fraction] 98 % [facility] 05-10-2025 11:33-0400 Systolic blood pressure 133 mm[Hg] [facility] 01-31-2025 10:33-0500 Body height 139.7 cm Soraida Singhpatrick OCCUPANCY SPECIALIST Work Phone: [facility] 01-31-2025 10:33-0500 Body mass index (BMI) [Ratio] 27.66 kg/m2 Soraida Singhpatrick OCCUPANCY SPECIALIST Work Phone: [facility] 01-31-2025 10:33-0500 Body temperature 97.11 [degF] Soraida Bethea OCCUPANCY SPECIALIST Work Phone: [facility] 01-31-2025 10:33-0500 Body weight 53.98 kg Soraida Bethea OCCUPANCY SPECIALIST Work Phone: [facility] 01-31-2025 10:33-0500 Diastolic blood pressure 80 mm[Hg] Soraida Bethea OCCUPANCY SPECIALIST Work Phone: [facility] 01-31-2025 10:33-0500 Systolic blood pressure 136 mm[Hg] Soraida Bethea OCCUPANCY SPECIALIST Work Phone: [facility] 01-03-2025 10:04-0500 Body mass index (BMI) [Ratio] 24.64 kg/m2 Soraida Bethea OCCUPANCY SPECIALIST Work Phone: [facility] 01-03-2025 10:04-0500 Body temperature 97.11 [degF] Soraida Bethea OCCUPANCY SPECIALIST Work Phone: [facility] 01-03-2025 10:04-0500 Body weight 55.34 kg Soraida Bethea OCCUPANCY SPECIALIST Work Phone: [facility] 01-03-2025 10:04-0500 Diastolic blood pressure 64 mm[Hg] Soraida Bethea OCCUPANCY SPECIALIST Work Phone: [facility] 01-03-2025 10:04-0500 Systolic blood pressure 122 mm[Hg] Soraida Bethea OCCUPANCY SPECIALIST Work Phone: [facility] 07-08-2023 11:00-0400 Body height 149.86 cm Batonjulio Evolva Other [facility] Other 07-08-2023 11:00-0400 Body mass index (BMI) [Ratio] 26.17 kg/m2 [employer] Other [facility] Other 07-08-2023 11:00-0400 Body temperature 96.5 [degF] Aziz Bakhous Other [facility] Other 07-08-2023 11:00-0400 Body weight 58.79 kg Aziz Bakhous Other [facility] Other 07-08-2023 11:00-0400 Diastolic blood pressure 80 mm[Hg] Aziz Bakhous Other [facility] Other 07-08-2023 11:00-0400 Respiratory rate 18 /min Aziz Bakhous Other [facility] Other 07-08-2023 11:00-0400 SaO2% (BldA) [Mass fraction] 96 % Aziz Bakhous Other [facility] Other 07-08-2023 11:00-0400 Systolic blood pressure 140 mm[Hg] Aziz Bakhous Other [facility] Other 01-21-2023 11:20-0500 Body height 149.86 cm Aziz Bakhous Other [facility] Other 01-21-2023 11:20-0500 Body mass index (BMI) [Ratio] 25.85 kg/m2 Aziz Bakhous Other [facility] Other 01-21-2023 11:20-0500 Body weight 58.06 kg Aziz Bakhous Other [facility] Other 01-21-2023 11:20-0500 Diastolic blood pressure 73 mm[Hg] Aziz Bakhous Other [facility] Other 01-21-2023 11:20-0500 Respiratory rate 18 /min Azjulio Englands Other [facility] Other 01-21-2023 11:20-0500 SaO2% (BldA) [Mass fraction] 98 % Azjulio Englands Other [facility] Other 01-21-2023 11:20-0500 Systolic blood pressure 121 mm[Hg] Aziz Kaceyhous Other [facility] Other 09-17-2022 15:40-0400 Body height 149.86 cm Albin Englands Other [facility] Other 09-17-2022 15:40-0400 Body mass index (BMI) [Ratio] 24.6 kg/m2 Albin Englands Other [facility] Other 09-17-2022 15:40-0400 Body temperature 97.1 [degF] Albin Englands Other [facility] Other 09-17-2022 15:40-0400 Body weight 55.25 kg Albin Englands Other [facility] Other 09-17-2022 15:40-0400 Diastolic blood pressure 78 mm[Hg] Azjulio Erazohous Other [facility] Other 09-17-2022 15:40-0400 Respiratory rate 18 /min Albin Englands Other [facility] Other 09-17-2022 15:40-0400 SaO2% (BldA) [Mass fraction] 99 % Azjulio Englands Other [facility] Other 09-17-2022 15:40-0400 Systolic blood pressure 140 mm[Hg] Aziz Kaceyhous Other [facility] Other 04-23-2022 15:40-0400 Body height 149.86 cm Azjulio Englands Other [facility] Other 04-23-2022 15:40-0400 Body mass index (BMI) [Ratio] 22.94 kg/m2 Albin Englands Other [facility] Other 04-23-2022 15:40-0400 Body temperature 96.4 [degF] Albin Englands Other [facility] Other 04-23-2022 15:40-0400 Body weight 51.53 kg Albin Englands Other [facility] Other 04-23-2022 15:40-0400 Diastolic blood pressure 82 mm[Hg] Albin Englands Other [facility] Other 04-23-2022 15:40-0400 Respiratory rate 18 /min Azjulio Erazohous Other [facility] Other 04-23-2022 15:40-0400 SaO2% (BldA) [Mass fraction] 99 % Albin Englands Other [facility] Other 04-23-2022 15:40-0400 Systolic blood pressure 149 mm[Hg] Aziz Bakhous Other [facility] Other Encounters Encounter Date Encounter Type Care Provider Facility Start: 09-06-2025 End: 09-06-2025 ambulatory [facility] Start: 08-22-2025 End: 08-22-2025 ambulatory [facility] Start: 08-02-2025 End: 08-02-2025 Bamboo flowsheet Soraida Bethea OCCUPANCY SPECIALIST Work Phone: [facility] Start: 08-02-2025 End: 08-02-2025 Bamboo flowsheet Soraida Bethea OCCUPANCY SPECIALIST Work Phone: [facility] Start: 08-02-2025 End: 08-02-2025 Office outpatient visit 25 minutes Soraida Bethea OCCUPANCY SPECIALIST Work Phone: [facility] Comment on above: 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, without long-term current use of insulin, unspecified CKD stage (HCC) (Primary Dx); Essential hypertension ; Longstanding persistent atrial fibrillation (HCC); Type 2 diabetes mellitus with diabetic peripheral angiopathy without gangrene, without long-term current use of insulin (HCC); Mitral valve stenosis and regurgitation Start: 08-02-2025 End: 08-02-2025 ambulatory SORAIDA BETHEA Not Available Start: 06-01-2025 End: 06-01-2025 Refill Soraida Bethea OCCUPANCY SPECIALIST Work Phone: [facility] Comment on above: Mixed hyperlipidemia Start: 05-16-2025 End: 05-16-2025 ambulatory [facility] Start: 05-10-2025 End: 05-10-2025 ambulatory [facility] Work Phone: Start: 05-10-2025 End: 05-10-2025 Patient encounter procedure [facility] [place] Work Phone: Start: 05-02-2025 Non-patient / Non-visit [facility] Work Phone: Start: 03-09-2025 End: 03-09-2025 ambulatory IMAN KOLEDA [facility] Start: 03-09-2025 End: 03-09-2025 Subsequent hospital visit by physician [facility] Drawing [facility] Comment on above: 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 Start: 01-31-2025 End: 01-31-2025 Bamboo flowsheet Soraida Bethea OCCUPANCY SPECIALIST Work Phone: [facility] Start: 01-31-2025 End: 01-31-2025 Bamboo flowsheet Soraida Bethea OCCUPANCY SPECIALIST Work Phone: [facility] Start: 01-31-2025 End: 01-31-2025 Patient encounter procedure Soraida Bethea OCCUPANCY SPECIALIST Work Phone: [facility] Comment on [...] 01-17-2025 End: 01-17-2025 Telephone encounter Rochelle Oneil OCCUPANCY SPECIALIST Work Phone: [facility] Comment on above: Injection Start: 01-17-2025 End: 01-17-2025 Office outpatient visit 25 minutes Rochelle Oneil OCCUPANCY SPECIALIST Work Phone: [facility] Comment on above: Impingement syndrome of left shoulder (Primary Dx); Arthritis of left acromioclavicular joint; Chronic left shoulder pain Start: 01-17-2025 End: 01-17-2025 ambulatory ROCHELLE ONEIL Not Available Start: 01-03-2025 End: 01-03-2025 Bamboo flowsheet Soraida Bethea OCCUPANCY SPECIALIST Work Phone: [facility] Start: 01-03-2025 End: 01-03-2025 Bamboo flowsheet Soraida Bethea OCCUPANCY SPECIALIST Work Phone: [facility] Start: 01-03-2025 End: 01-03-2025 Office outpatient visit 25 minutes Soraida Bethea OCCUPANCY SPECIALIST Work Phone: [facility] Comment on above: Essential hypertensi on (CMS/HCC) (Primary Dx); Cerumen debris on tympanic membrane of both ears Start: 01-03-2025 End: 01-03-2025 ambulatory SORAIDA BETHEA Not Available Start: 12-31-2024 End: 12-31-2024 Renetta Mei MD Work Phone: [facility] Comment on above: 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, without long-term current use of insulin, unspecified CKD stage (CMS/HCC) Start: 11-17-2024 End: 11-18-2024 Patient encounter procedure [facility] Comment on above: 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) Start: 11-17-2024 End: 11-18-2024 ambulatory SORAIDA BETHEA Not Available Start: 11-10-2024 End: 11-10-2024 ambulatory [facility] Start: 10-15-2024 End: 10-15-2024 Refill Elmira G Fredy DO Work Phone: [facility] Comment on above: Primary hypertension (CMS/HCC) Start: 10-01-2024 End: 10-01-2024 Refill Elmira G Fredy DO Work Phone: [facility] Comment on above: Primary hypertension (CMS/HCC) Start: 09-08-2024 End: 09-08-2024 ambulatory IMAN OUMAR [facility] Start: 08-11-2024 End: 08-11-2024 Refill Elmira G Fredy DO Work Phone: [facility] Comment on above: Mixed hyperlipidemia (CMS/HCC) Start: 07-31-2024 End: 08-03-2024 Refill Elmira G Fredy DO Work Phone: [facility] Comment on above: Primary hypertension (CMS/HCC) Start: 01-12-2024 Bamboo flowsheet Soraida Bethea OCCUPANCY SPECIALIST Work Phone: [facility] Start: 01-12-2024 Bamboo flowsheet Soraida Bethea OCCUPANCY SPECIALIST Work Phone: [facility] Start: 01-12-2024 Patient encounter procedure Soraida Bethea OCCUPANCY SPECIALIST Work Phone: [facility] Start: 01-05-2024 End: 01-05-2024 ambulatory Albin Bonner Other [facility] Other Start: 01-05-2024 Refill Elmira Brown DO Work Phone: [facility] Comment on above: 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, without long-term current use of insulin, unspecified CKD stage ([facility]) Start: 01-05-2024 Telephone encounter Aziz Bakhous [facility] Start: 09-10-2023 End: 09-10-2023 ambulatory Aziz Bakhous Other [facility] Other Start: 09-10-2023 Telephone encounter Aziz Bakhous [facility] Start: 07-08-2023 End: 07-08-2023 ambulatory Aziz Bakhous Other [facility] Other Start: 07-08-2023 Office outpatient vi sit 25 minutes Aziz Bakhous [facility] [place] Start: 03-17-2023 End: 03-18-2023 ambulatory DHEERAJ SESAY Facility:[facility] Start: 03-12-2023 End: 03-13-2023 ambulatory DHEERAJ SESAY Facility:[facility] Start: 03-10-2023 End: 03-11-[address] ONEL WRIGHT Facility:[facility] Start: 02-05-2023 End: 02-06-[address] DOCTOR ALBRIGHT Facility:[facility] Start: 01-24-2023 End: 01-24-2023 Subsequent hospital visit by physician Jam Maya MD Work Phone: [facility] Comment on above: History of ovarian c ancer Start: 01-22-2023 End: 01-22-2023 ambulatory Aziz Bakhous Other [facility] Other Start: 01-22-2023 Telephone encounter Aziz Bakhous [facility] Start: 01-21-2023 End: 01-21-2023 ambulatory Aziz Bakhous Other [facility] Other Start: 01-21-2023 Office outpatient vi sit 25 minutes Aziz Bakhous [facility] [place] Start: 01-13-2023 End: 01-13-[address] DOCTOR ALBRIGHT Facility:[facility] Start: 01-13-2023 End: 01-14-[address] DOCTOR ALBRIGHT Facility:[facility] Start: 11-08-2022 End: 11-08-[address] ZACHARY BOYLE Facility:[facility] Start: 09-17-2022 End: 09-17-2022 ambulatory Albin Bonner Other [facility] Other Start: 09-17-2022 Office outpatient vi sit 25 minutes Aziz Bakhous [facility] [place] Start: 09-10-2022 End: 09-11-[address] DOCTOR ALBRIGHT Facility:[facility] Start: 08-21-2022 End: 08-22-2022 ambulatory KATHARINA JOVEL Facility:[facility] Start: 07-10-2022 End: 07-10-2022 Subsequent hospital visit by physician Zachary Boyle Work Phone: [facility] Comment on above: 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 Start: 06-05-2022 End: 06-06-[address] ZACHARY BOYLE Facility:[facility] Start: 05-29-2022 End: 05-30-[address] ZACHARY BOYLE Facility:[facility] Start: 05-06-2022 End: 05-07-[address] ZACHARY BOYLE Facility:[facility] Start: 04-23-2022 End: 04-23-2022 ambulatory Albin Bonner Other [facility] Other Start: 04-23-2022 Office outpatient ne w 30 minutes Aziz Bakhous [facility] Start: 03-27-2022 End: 03-27-2022 Subsequent hospital visit by physician Zachary Boyle Work Phone: [facility] Start: 09-26-2021 End: 09-27-2021 ambulatory ANABEL DUNCAN [facility] Start: 09-26-2021 End: 09-26-2021 Subsequent hospital visit by physician Zachary Boyle Work Phone: [facility] [place] Comment on above: Borderline epithelia l neoplasm of ovary; Gross hematuria Start: 07-18-2021 End: 07-19-2021 ambulatory ANABEL DUNCAN [facility] Start: 12-29-2018 End: 01-17-2024 Patient encounter procedure Elmira Brown DO Work Phone: [facility] Healthcare Procedures Date Procedure Procedure Detail Performing Clinician Start: 08-02-2025 Hemoglobin glycosylated a1c Soraida Bethea OCCUPANCY SPECIALIST Work Phone: Start: 03-09-2025 Immunoassay tumor an tigen quantitative ca 125 Iman Koleda PA-C Work Phone: Start: 01-17-2025 Arthrocentesis aspir &/inj major jt/bursa w/o Rochelle T Rayne OCCUPANCY SPECIALIST Work Phone: Start: 01-24-2023 Immunoassay tumor an [...] DTaP/Tdap/Td vaccine (3 - Td or Tdap) [facility] Start: 01-31-2026 Medicare Annual Wellness (AWV) Medicare Annual Wellness (AWV) [facility] Start: 11-02-2025 End: 11-02-2025 Patient encounter procedure 11/02/2025 10:30 AM EST Office Visit [facility] [address] [place] [id number] Dona Ayala NP [address] [place] [address] [facility] Start: 11-01-2025 Hemoglobin A1c measurement Diabetes: Hemoglobin A1C [facility] Start: 08-02-2025 End: 08-02-2025 Patient encounter procedure 08/02/2025 1:30 PM EDT Office Visit [facility] [address] [place] [id number] Soraida Bethea NP [address] [place], [place] [id number] Arrived [facility] Comment on above: Arrived Start: 08-01-2025 Influenza vaccination Influenza Vacc ine (#1) [facility] Start: 07-12-2025 Urine screening for protein Diabetes: Urine Protein Screening [facility] Start: 05-30-2025 Influenza vaccination Influenza Vacc ine (#1) [facility] Comment on above: Postponed from 08/01 (Supply/Drug Shortage) Start: 05-03-2025 Hemoglobin A1c measurement Diabetes: Hemoglobin A1C [facility] Start: 03-18-2025 End: 03-18-2025 Patient encounter procedure 03/18/2025 10:30 AM EDT Office Visit [facility] EMERGENCY ROOM REGISTERED NURSE Oncology [address] [place] [address] Iman Valenzuela PA-C [address] [address] 6mfu [facility] EMERGENCY ROOM REGISTERED NURSE Oncology Comment on above: 6mfu Start: 01-31-2025 End: 01-31-2026 Hemoglobin A1c/Hemoglobin.total in Blood Hemoglobin A1c Lab Routine Type 2 diabetes mellitus with chronic kidney disease, without long-term current use of insulin, unspecified CKD stage ([facility]) Expected: 01/31/2025 (Approximate), Expires: 01/31/2026 [facility] Comment on above: Expected: 01/31/2025 (Approximate), Expires: 01/31/2026 Start: 01-31-2025 End: 01-31-2026 Lipid 1996 panel - Serum or Plasma Lipid panel Lab Routine Encounter for annual wellness exam in Medicare patient Mixed hyperlipidemia ([facility]) Expected: 01/31/2025 (Approximate), Expires: 01/31/2026 [facility] Work Phone: Comment on above: Expected: 01/31/2025 (Approximate), Expires: 01/31/2026 Start: 01-31-2025 End: 01-31-2026 TSH W/REFLEX TO FT4 TSH W/REFLEX TO FT4 Lab Routine Encounter for annual wellness exam in Medicare patient Expected: 01/31/2025 (Approximate), Expires: 01/31/2026 [facility] Comment on above: Expected: 01/31/2025 (Approximate), Expires: 01/31/2026 Start: 01-31-2025 End: 01-31-2025 Patient encounter procedure [facility] Comment on above: Arrived Start: 01-17-2025 End: 01-17-2025 Patient encounter procedure 01/17/2025 11:15 AM EST Office Visit [facility] [address] [place] [id number] Rochelle Oneil, OCCUPANCY SPECIALIST [address] [place] [address] [facility] Start: 01-12-2025 Medicare Annual Wellness (AWV) Medicare Annual Wellness (AWV) [facility] Start: 01-03-2025 End: 01-03-2025 Patient encounter procedure [facility] Comment on above: Arrived Start: 12-01-2024 Annual Wellness Visi t (Medicare Advantage) Annual Wellness Visit (Medicare Advantage) [facility] Start: 08-01-2024 COVID-19 Vaccine ( season) COVID[facility]19 [facility] ( [facility] Start: 08-01-2024 Influenza vaccination Influenza Vacc ine (#1) [facility] Start: 03-17-2024 End: 03-17-2024 Patient encounter procedure 03/17/2024 1:00 PM EDT Office Visit [facility] [address] [facility] [address] [place] [address] [facility] Start: 01-12-2024 End: 01-12-2024 Patient encounter procedure 01/12/2024 11:00 AM EST Office Visit [facility] [address] [place] [phone] Soraida Bethea NP [address] [place] [address] Arrived [facility] Comment on above: Arrived Start: 11-06-2023 Urine screening for protein Diabetes: Urine Protein Screening [facility] Start: 05-08-2023 Hemoglobin A1c measurement Diabetes: Hemoglobin A1C [facility] Start: 01-31-2023 End: 01-31-2023 Patient encounter procedure 01/31/2023 Office Visit Gynecologic Oncology Jam Warren MD [address] [facility] [address] [place] [address] [facility] EMERGENCY ROOM REGISTERED NURSE Oncology Start: 01-05-2023 Creatinine measurement Creatinine [facility] Start: 01-05-2023 Potassium [Moles/volume] in Serum or Plasma Potassium [facility] Start: 08-01-2022 Influenza vaccination M [facility] Start: 07-17-2022 End: 07-17-2022 Patient encounter procedure 07/17/2022 Office Visit Gynecologic Oncology Jam Warren MD [address] [facility] [address] [place] [address] [facility] EMERGENCY ROOM REGISTERED NURSE Oncology Start: 07-01-2022 Influenza vaccination Flu vaccine (# 1[facility] Start: 01-23-2022 End: 01-23-2022 Patient encounter procedure 01/23/2022 Office Visit Gynecologic Oncology Anabel Duncan MD [address] [facility] [address] [place] [address] [phone] [facility] EMERGENCY ROOM REGISTERED NURSE Oncology Start: 01-02-2022 End: 01-02-2022 Patient encounter procedure 01/02/2022 Office Visit Gynecologic Oncology Anabel Duncan MD [address] [facility] [address] [place] [address] [phone] [facility] EMERGENCY ROOM REGISTERED NURSE Oncology Start: 08-01-2021 Influenza vaccination Flu vaccine (# 1) [facility] [employer] Work Phone: Start: 06-12-2021 Annual Wellness Visi t (AWV) Annual Wellness Visit (AWV) [facility] Start: 09-01-2009 Pneumococcal 50+ yea rs Vaccine (2 of 2 - PCV) Pneumococcal 50+ years Vaccine (2 of 2 - PCV) [facility] Start: 09-01-2009 Pneumococcal Vaccine : 65+ Years (2 - PCV) Pneumococcal Vaccine: 65+ Years (2 - PCV) [facility] Start: 09-01-2009 Pneumococcal Vaccine : 65+ Years (2 of 2 - PCV) Pneumococcal Vaccine: 65+ Years (2 of 2 - PCV) [facility] Start: 2003 Pneumococcal 65+ yea rs Vaccine (1 of 1 - PPSV23) Pneumococcal 65+ years Vaccine (1 of 1 - PPSV23) [facility] [employer] Phone: Start: 1993 Screening for osteoporosis DEXA (modify frequency per FRAX score) [facility] Start: 1988 Shingles Vaccine (1 of 2) Shingles Vaccine (1 of 2) [facility] Start: 1957 DTaP/Tdap/Td vaccine (1 - Tdap) DTaP/Tdap/Td vaccine (1 - Tdap) [facility] Start: 1957 Urine screening for protein Diabetes: Urine Protein Screening [facility] Start: 1950 COVID-19 Vaccine (1) COVID-19 Vaccin e (1) [employer] Work Phone: Start: 1950 Depression Screen Depression Screen [facility] [employer] Start: 1948 Glaucoma screening Diabetes: R etinopathy Screening [facility] Start: 1948 Lipid panel [facility] Start: 1944 Pneumococcal 65+ yea rs Vaccine (1 - PCV) Pneumococcal 65+ years Vaccine (1 - PCV) [facility] [employer] Start: 1943 COVID-19 Vaccine (1) COVID-19 Vaccin e (1) [facility] [employer] Start: 1938 COVID-19 Vaccine (#1) COVID-19 Vacci ne (#1) [facility] Start: 1938 Annual Wellness Visi t (AWV) Annual Wellness Visit (AWV) [facility] Start: 1938 Creatinine measurement Creatinine mo nitoring [employer] Phone: Start: 1938 Medicare Annual Wellness (AWV) Medicare Annual Wellness (AWV) [facility] Start: 1938 Potassium monitoring Potassium monit oring [employer] Phone: Renal function 2000 panel - Serum or Plasma [facility] Immunizations Immunization Date Immunization Notes Care Provider Fa jeevan 01-10-2025 influenza, high dose seasonal, preservative-free Soraida Bethea OCCUPANCY SPECIALIST Work Phone: [facility] 01-10-2025 RSV, recombinant, protein subunit RSVpreF, adjuvant reconstitu, 120mcg/0.5mL, PF (Arexvy) Soraida Bethea OCCUPANCY SPECIALIST Work Phone: [facility] 01-10-2025 influenza virus vaccine, unspecified formulation Soraida Bethea OCCUPANCY SPECIALIST Work Phone: [facility] 09-15-2023 Influenza, Seasonal, Quadrivalent, Adjuvanted Soraida Bethea OCCUPANCY SPECIALIST Work Phone: [facility] 09-15-2023 influenza virus vaccine, unspecified formulation Elmiar Fredy DO Work Phone: [facility] 01-13-2023 diphtheria, tetanus toxoids and pertussis vaccine Elmira Fredy DO Work Phone: [facility] 09-02-2022 Influenza, High-dose Seasonal, Quadrivalent, Preservative Free Elmira Fredy DO Work Phone: [facility] 10-18-2021 Moderna SARS-CoV-2 Vaccination Elmira Fredy DO Work Phone: [facility] Work Phone: 10-03-2021 Moderna SARS-CoV-2 Vaccination Soraida Bethea OCCUPANCY SPECIALIST Work Phone: [facility] 05-11-2021 tetanus toxoid, redu lety diphtheria toxoid, and acellular pertussis vaccine, adsorbed Soraida Bethea OCCUPANCY SPECIALIST Work Phone: [facility] 02-01-2021 Moderna SARS-CoV-2 Vaccination Elmira Fredy DO Work Phone: [facility] 01-04-2021 Moderna SARS-CoV-2 Vaccination Elmira Fredy DO Work Phone: [facility] 11-21-2020 Influenza, High-dose Seasonal, Quadrivalent, Preservative Free Soraida Bowmanzpatrick OCCUPANCY SPECIALIST Work Phone: [facility] 09-01-2008 pneumococcal polysaccharide vaccine, 23 valent Soraida Bowmanzpatrick OCCUPANCY SPECIALIST Work Phone: [facility] Payers Date Payer Category Payer Medicare [employer] MEDICARE ADVANTAGE HU[employer] MEDICARE [id number] 2021-Present [address] [address] [place] [address] [id number] 2021 Medicare (Managed Care) [employer]NA [facility] ADVANTAGE [id number] 2000 Medicare MEDICARE MEDICAR E PART A AND B [id number] 2000-Present [phone] [place] [address] [id number] 1959 Medicare [id number]. [id number] 1938 Unknown [id number] 2.16.840.1.212314.3.579. 2.175 1938 Unknown [id number] 2.16.840.1.020480.3.579. 2.175 1938 Unknown [id number] 2.16.840.1.797480.3.579. 2.593 1938 Unknown [id number] 2.16.840.1.336479.3.579. 2.593 1938 Unknown [id number] 2.16.840.1.536523.3.579. 2.593 1938 Unknown [id number] 2.16.840.1.221440.3.579. 2.593 1938 Unknown [id number] 2.16.840.1.181585.3.579. 2.593 1938 Unknown [id number] 2.16.840.1.718287.3.579. 2.593 1938 Unknown [id number] 2.16.840.1.019555.3.579. 2.593 1938 Unknown [id number] 2.16.840.1.636457.3.579. 2.593 1938 Unknown [id number] 2.16.840.1.219301.3.579. 2.593 1938 Unknown [id number] 2.16.840.1.153866.3.579. 2.593 1938 Unknown [id number] 2.16.840.1.092615.3.579. 2.593 1938 Unknown [id number] 2.16.840.1.705621.3.579. 2.593 1938 Unknown [id number] 2.16.840.1.384208.3.579. 2.593 1938 Unknown [id number] 2.16840.1.934776.3.579. 2.593 1938 Unknown [id number] 2.16.840.1.659838.3.579. 2.173 1938 Unknown [id number] 2.16.840.1.599618.3.579. 2.173 1938 Unknown [id number] 2.16.840.1.329102.3.579. 2.1259 1938 Unknown [id number] 2.16840.1.088310.3.579. 2.1259 1938 Unknown [id number] 2.16840.1.128534.3.579. 2.1259 1938 Unknown [id number] 2.16840.1.837705.3.579. 2.1259 1938 Unknown [id number] 2.16840.1.529933.3.579. 2.1259 Social History Date Type Detail Facility Start: 09-26-2021 End: 04-20-2023 Tobacco smoking status [facility] Never smoker [employer] Phone: Start: 09-26-2021 End: 04-20-2023 Tobacco use and exposure Never used [employer] Start: 1940 Sex Assigned At Not on file [employer] Work Phone: Exposure to SARS-CoV-2 (event) Not sure [employer] Start: 09-08-2023 End: 01-31-2025 Sex Assigned At [employer] Other Start: 12-03-2023 End: 08-02-2025 Alcohol intake Current drinker of alcohol (finding) [facility] Start: 09-08-2023 End: 01-31-2025 History of Social function [facility] Start: 05-10-2023 Alcohol Comment caffeine intak e: none [facility] Start: 06-12-2021 End: 05-10-2025 Sex Female (finding) Michele Gusman [employer] Start: 01-04-2025 Tobacco smoking status NHIS Ex-smoker (finding) [facility] Start: 1940 Sex Assigned At Female [facility] NEGATED: Highlighted rowStart: NINF History of tobacco use Passive smoker [facility] Medical Equipment Procedure Code Equipment Code Equipment Origin al Text Equipment Identifier Dates Check fasting glucose once daily [id number] Start: 08-20-2023 Inject 1 Lancet under the skin in the morning. [id number] Start: 08-20-2023 Clinical Notes 04-23-2022 to 08-22-2025 Soraida Bethea, CHENCHO - 08/02/2025 1:30 PM Saige Bethea, CHENCHO - 01/31/2025 10:30 AM Yola Oneil, CHENCHO - 01/17/2025 11:15 AM Alvarez Bethea NP - 01/03/2025 10:00 AM EST Note Date & Type Note Facility 08-22-2025 Note [place] [facility] - [facility] Subjective Yesy Rodriguez is a 85 y.o. year old female patient being seen for 3 mo follow up with ECHO. Patient states she has been feeling off and on. Patient states she has been to the [facility] ER quite a bit with chest [...] is an 81-year-old woman who moved from [place] in May 2021. She is known to [...] She was evaluated at the [facility] cardiology service and she was [...] carotid arteries. Vertebrals are patent with antegrade f (more content not included)... [facility] 08-02-2025 History of Present illness Narrative Images from the original note were not included. Yesy Rodriguez is a 85 y.o. female presents with chief complaint of ER Follow-up HPI: History of Present Illness The patient presents for evaluation of congestive heart failure and diabetes. She has been diagnosed with congestive heart failure. Her last consultation with Dr. Bartholomew, her primary customer care specialist, was in 05/2025. He recommended a procedure due to the increasing blockage in her valve, but she declined at that time. An echocardiogram was performed on Friday morning following her emergency room visit. She has experienced two episodes of chest pain but was not admitted to the hospital. She reports frequent urination and regular bowel movements. She has been taking Colace and prune juice, which have effectively managed her constipation. HPI Flowsheet Row Patient Outreach from 07/29/2025 in [facility] with Ritu Sanchez [facility] Information ED, Hospital or Nursing Home Facility Discharge? ED Patient has been contacted within 2 days of being seen in the ED Yes Diagnosis chest pain Discharge Date 07/28/25 Discharged To: Home Setting Discharge Hospital [facility] Engagement Call Start Time 1401 Admission Date 07/28/25 Medications Discharge medications reviewed and reconciled from hospital? No [unable to reconcile meds] Is the patient having any side effects they believe may be caused by any medication additions or changes? No Does the patient have all medications ordered at discharge? Yes Prescription Comments Ranolazine 500mg tablet extended release, 500mg po BID #20 Follow Up Tasks Medication reconciliation issues Appointments Does the patient have a primary care provider? Yes [Lexy Mei MD/ Soraida Bethea NP] Nursing Interventions Advised patient to make appointment, Verified appointment date/time/provider Does the patient have any upcoming specialty appointments? Yes [Cardio Dr. Wright 08/22] Nursing Interventions Advised patient to keep appointment Self Management Patient Teaching Does the patient have access to their discharge instructions? Yes Nursing Interventions Reviewed instructions with patient What is the patient's perception of their health status since discharge? Returned to baseline/stable Is the patient/caregiver able to teach back the hierarchy of who to call/visit for symptoms/problems? PCP, Specialist, Home Health nurse, Urgent Care, ED, 911 Yes Wrap Up Wrap Up Additional Comments Presented to ED for chest pain. Pain resolved by the time pt arrived to ED. EKG showed a-fib with rate of [address] elevation or depression. Labs showed no acute pathology, 2nd troponin negative. Chest XR normal. Cardio was consulted and pt started on ranexa Call End Time 1415 SUBJECTIVE: MEDICATIONS: Current Outpatient Medications Medication Instructions Alcohol Swabs (DropSafe Alcohol Prep) 70 % pads amLODIPine (NORVASC) 5 mg, Oral, Daily anastrozole (ARIMIDEX) 1 mg, Daily apixaban (ELIQUIS) 2.5 mg, 2 times daily atorvastatin (LIPITOR) 10 mg, Oral, Daily benazepril (LOTENSIN) 10 mg, Oral, Daily Blood [...] 0.005 % eye drops metoprolol succinate XL (TOPROL-XL) 200 mg, Oral, Daily ranolazine (RANEXA) 500 mg, 2 times daily SITagliptin (JANUVIA) 50 mg, Oral, Daily TRUEplus [...] Endocrine: Negative. Allergic/Immunologic: Negative. OBJECTIVE: Visit Vitals BP 124/70 Pulse 83 Ht 4' 7 Wt 120 lb SpO2 96% BMI 27.89 kg/m Smoking Status Never BSA 1.45 m Physical Exam Vitals reviewed. Cardiovascular: Rate and Rhythm: Normal rate. Rhythm regularly irregular. Pulses: Normal pulses. Heart sounds: Murmur (right upper sternum) heard. Pulmonary: Effort: Pulmonary effort is normal. Breath sounds: Normal breath sounds. Abdominal: General: Abdomen is flat. Bowel sounds are normal. Palpations: Abdomen is soft. Musculoskeletal: General: Normal range of motion. Skin: General: Skin is warm and dry. Neurological: General: No focal deficit present. Mental Status: She is oriented to person, place, and time. ASSESSMENT AND PLAN: Flowsheet Row Patient Outreach from 07/29/2025 in [facility] with Ritu Sanchez [facility] Information ED, Hospital or Nursing Home Facility Discharge? ED Patient has been contacted within 2 days of being seen in the ED Yes Diagnosis chest pain Discharge Date 07/28/25 Discharged To: Home Setting Discharge Hospital [facility] Engagement Call Start Time 1401 Admission Date 07/28/25 Medications Discharge medications reviewed and reconciled from hospital? No [unable to reconcile meds] Is the patient having any side effects they believe may be caused by any medication additions or changes? No Does the patient have all medications ordered at discharge? Yes Prescription Comments Ranolazine 500mg tablet extended release, 500mg po BID #20 Follow Up Tasks Medication reconciliation issues Appointments Does the patient have a primary care provider? Yes [Lexy Mei MD/ Soraida Bethea NP] Nursing Interventions Advised patient to make appointment, Verified appointment date/time/provider Does the patient have any upcoming specialty appointments? Yes [Cardio Dr. Wright 08/22] Nursing Interventions Advised patient to keep appointment Self Management Patient Teaching Does the patient have access to their discharge instructions? Yes Nursing Interventions Reviewed instructions with patient What is the patient's perception of their health status since discharge? Returned to baseline/stable Is the patient/caregiver able to teach back the hierarchy of who to call/visit for symptoms/problems? PCP, Specialist, Home Health nurse, Urgent Care, ED, 911 Yes Wrap Up Wrap Up Additional Comments Presented to ED for chest pain. Pain resolved by the time pt arrived to ED. EKG showed a-fib with rate of [address] elevation or depression. Labs showed no acute pathology, 2nd troponin negative. Chest XR normal. Cardio was consulted and pt started on ranexa Call End Time 1415 Assessment/Plan Diagnoses and all orders for this visit: Type 2 diabetes mellitus with chronic kidney disease, without long-term current use of insulin, unspecified CKD stage (HCC)-stable continue on current medications - POCT Glycated hemoglobin, total Essential hypertension -stable continue on current medications Longstanding persistent atrial fibrillation (HCC)-stable follows with cardio Type 2 diabetes mellitus with diabetic peripheral angiopathy without gangrene, without long-term current use of insulin (HCC) Mitral valve stenosis and regurgitation-awaiting piggyback procedure. Patient will seek immediate medical attention if symptoms worsen or don't improve. documented in this encounter [facility] 05-16-2025 Note [place] [facility] Subjective Yesy Rodriguez is a [...] is an 81-year-old woman who moved from [place] in May 2021. She is known to [...] She was evaluated at the [facility] cardiology service and she was [...] fibrillation, left an (more content not included)... [facility] 05-03-2025 Note RVSP has doubled sin ce her last ECHO 6 months ago. Was at 44 now is at 94. 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 She see's you on 05/16/25. Do you want me to order a ERIK, increase lasix, or just wait until you see her? Thanks! Yennifer [facility] 05-03-2025 Note Please let her know there were changes on her recent ECHO. We need to proceed with a follow-up ERIK to further assess her aortic valve. Thanks! [facility] 01-31-2025 History of Present illness Narrative [...] tenderness or frontal sinus tenderness. Mouth/Throat: Lips: Bandana. Mouth: Mucous membranes are moist. Pharynx: Oropharynx [...] W/REFLEX TO FT4; Future Wellness performed at today. Height, weight, BMI, problem list, and [...] current use of insulin (CMS/HCC) Aortic atherosclerosis (CMS/HCC) Chronic obstructive pulmonary disease, unspecified COPD type (CMS/HCC) Type 2 diabetes mellitus with diabetic peripheral angiopathy without gangrene, without long-term current use of insulin (CMS/HCC) Varicose veins of right lower extremity, unspecified [...] of left ear documented in this encounter [facility] 01-17-2025 History of Present illness Narrative Associated [...] Use: Not At Risk (11/03/2020) Re[facility] from [facility] AUDIT-C Frequency of Alcohol Consumption: [...] develop for requiring urgent evaluation. Rochelle Oneil OPERATIONS CHIEF-CARROTER documented in this encounter [facility] 01-17-2025 Telephone encounter Note Yes that's fine [facility] Work Phone: 01-17-2025 Miscellaneous Notes Yes that's fine Patient's niece Lizabeth called stating she had RSV/Flu last week. She wanted to make sure it's still ok to come in today for an injection. documented in this encounter [facility] 01-17-2025 Telephone encounter Note Patient's niece Lizabeth called stating she had RSV/Flu last week. She wanted to make sure it's still ok to come in today for an injection. [facility] 01-03-2025 History of Present illness Narrative Images [...] of both ears- documented in this encounter [facility] 11-17-2024 History of Present illness Narrative Patient [...] 3:48 PM EST documented in this encounter [facility] 11-10-2024 Note Patient here for 6 m [...] All other systems reviewed and are negative. [facility] 11-10-2024 Note Cardiovascular Medic [facility] SUBJECTIVE Chief Complaint Patient presents with [...] is an 81-year-old woman who moved from [place] in May 2021. She is known to [...] She was evaluated at the [facility] cardiology service and she was [...] 3. Moderately elevated right-sided filling pressures. 4. Mqacnozs-[id number] elevation of the left-sided filling pressures. 5. [...] During most recent visit on 09/10/2023 with Farxiga 10 mg daily was added. Today [...] reasonably well from (more content not included)... [facility] 01-05-2024 Evaluation note Encounter Date Diagnosis Assessment Notes Jan, Primary hypertension (ICD-10 - I10) [employer] Other 08-08-2023 Evaluation note* Encounter Date Diagnosis [...] and she follows with cardiology clinic in [place] Jul, Diabetes type 2, no ocular involvement [...] - R31.9) follows with urology clinic in [facility] [employer] Other 02-22-2023 Evaluation note* Encounter Date Diagnosis Assessment Notes Treatment Notes Treatment Clinical Notes Jan, Hyperkalemia (ICD-10 - E87.5) [facility] [employer] Other 02-21-2023 Evaluation note* Encounter Date Diagnosis [...] and she follows with cardiology clinic in [place] Jan, Diabetes type 2, no ocular involvement [...] handout of high K food at avoid. [employer] Other 10-18-2022 Evaluation note* Encounter Date Diagnosis [...] and she follows with cardiology clinic in [place] Aug, Diabetes type 2, no ocular involvement [...] I will continue to monitor uric acid. [facility] Other 05-24-2022 Evaluation note* Encounter Date Diagnosis [...] and she follows with cardiology clinic in [place] March, Diabetes type 2, no ocular involvement (ICD-10 - E11.9) Patient used to be on metformin but was stopped due to worsening kidney function. Patient said her diabetes well controlled. 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 documented in this encounter [employer] Phone: evalnuyfim note* Diagnosis History of ovarian cancer Personal history of malignant neoplasm of ovary documented in this encounter [facility] [employer] Phone: evaluation noteNo InformationNort [employer] Other Evaluation note* Diagnosis Type 2 diabetes mellitus with chronic kidney disease, without long-term current use of insulin, unspecified CKD stage ([facility]/HCC) documented in this encounter [facility]* Diagnosis Primary hypertension ([facility]) Unspecified essential hypertension documented in this encounter [facility]* Diagnosis Mixed hyperlipidemia ([facility]) Mixed hyperlipidemia documented in this encounter [facility]* Diagnosis Mixed conductive and sensorineural hearing loss of right ear with restricted hearing of left ear- Primary documented in this encounter [facility]* Diagnosis Type 2 diabetes mellitus with chronic kidney disease, without long-term current use of insulin, unspecified CKD stage ([facility]/HCC) documented in this encounter [facility]* Diagnosis Essential hypertension ([facility]/HCC)- Primary Unspecified essential hypertension Cerumen debris on tympanic membrane of both ears documented in this encounter [facility]* Diagnosis Impingement syndrome of left shoulder- Primary 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 Pain in joint, shoulder region documented in this encounter [facility]* Diagnosis Encounter for annual wellness exam in Medicare patient- Primary Chronic heart failure, unspecified heart failure type (CMS/HCC) Essential hypertension ([facility]/HCC) Unspecified essential hypertension Mixed hyperlipidemia (CMS/HCC) Mixed hyperlipidemia Permanent atrial fibrillation (CMS/HCC) Atrial fibrillation Pulmonary hypertension (CMS/HCC) 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 (HCC) ([facility]) Type 2 diabetes mellitus with chronic kidney disease, without long-term current use of insulin, unspecified CKD stage (CMS/HCC) Longstanding persistent atrial fibrillation (CMS/HCC) Acute diastolic heart failure (CMS/HCC) Acute diastolic heart failure Chronic diastolic heart failure (CMS/HCC) Chronic diastolic heart failure Malignant neoplasm of ovary, unspecified laterality (CMS/HCC) Type 2 diabetes mellitus without complication, without long-term current use of insulin (CMS/HCC) Aortic atherosclerosis (CMS/HCC) Atherosclerosis of aorta Chronic obstructive pulmonary disease, unspecified COPD type (CMS/HCC) Type 2 diabetes mellitus with diabetic peripheral angiopathy without gangrene, without long-term current use of insulin ([facility]/HCC) Varicose veins of right lower extremity, unspecified [...] of left ear documented in this encounter [facility] HealthcareEvaluation note* 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 [facility] Diagnosis Onset Date Resolution Status Admit Date Chronic congestive heart failure acu te May 10, 2025 11:28am Hyperkalemia acute May 10, 025 11:28am Hypertensive nephropathy acute May 10, 2025 11:28am Hyperuricemia acute May 10, 2025 11:28am Stage 3b chronic kidney disease acut e May 10, 2025 11:28am Type 2 diabetes mellitus acute May 10, 2025 11:28am Vitamin D deficiency acute May 10, 2025 11:28am [facility] Work Phone: Evaluation note* Diagnosis Mixed hyperlipidemia Mixed hyperlipidemia documented in this encounter [facility] HealthcareEvaluation note* Diagnosis Type 2 diabetes mellitus with chronic kidney disease, without long-term current use of insulin, unspecified CKD stage (HCC)- Primary Essential hypertension Unspecified essential hypertension Longstanding persistent atrial fibrillation (HCC) Type 2 diabetes mellitus with diabetic peripheral angiopathy without gangrene, without long-term current use of insulin (HCC) Mitral valve stenosis and regurgitation documented in this encounter [facility] general [...] REMOVAL OF OVARIES Hospitalization History SEE ABOVE [facility] Other Summary Purpose Family History No Family [...] section and content) DATE CREATED AUTHOR 09/27/2021 [facility] DATE CREATED AUTHOR AUTHOR'S ORGANIZ ATION 01/22/2022 [facility] DATE CREATED AUTHOR AUTHOR'S ORGANIZ ATION 02/18/2022 [facility] DATE CREATED AUTHOR AUTHOR'S ORGANIZ ATION 06/11/2022 [facility] DATE CREATED AUTHOR AUTHOR'S ORGANIZ ATION 10/14/2022 [facility] dical Specialist DATE CREATED AUTHOR AUTHOR'S ORGANIZ ATION 03/20/2023 [facility] DATE CREATED AUTHOR AUTHOR'S ORGANIZ ATION 03/11/2025 [facility] DATE CREATED AUTHOR AUTHOR'S ORGANIZ ATION 08/03/2025 [facility] dical Specialists EPIC DATE CREATED AUTHOR AUTHOR'S ORGANIZ ATION 09/08/2025 [facility] Care Teams (unrecognized sec tion and content) [employer] Relationship Specialty Start Date End Date [place] Zachary Aidan [address] [place] [id number] PCP - General Family Medicine 09/26/21 [employer]er Relationship Specialty [place] [address] [facility] [place] [id number] PCP - General Gynecological Oncology 07/17/22 [employer] Installer Relationship Specialty Start Date End Date Elmira Brown DO [address] [place] [facility] [place] [address] PCP - [employer] 05/31/21 Elmira Brown DO [address] [place] [facility] [place] [address] PCP - General Family Medicine 04/09/23 [employer]er Relationship Specialty Start Date End Date Elmira Brown DO [address] [place] [facility] [place] [address] PCP - [employer] 05/31/21 Lexy Mei MD [address] [place] [facility] [place] [address] PCP - General Family Medicine 01/12/24 Soraida Bethea NP [address] [place] [facility] [place] [address] Nurse Practitioner Family Medicine 01/12/24 [employer] Installer Relationship Specialty Start Date End Date Elmira Brown DO [address] [place] [facility] [place] [address] PCP - [employer] 05/31/21 Lexy Mei MD [address] [place] [address] PCP - General Family Medicine 01/12/24 Soraida Bethea NP [address] [place] [address] Nurse Practitioner Family Medicine 01/12/24 [employer] Relationship Specialty Start Date End Date Elmira Brown DO [address] [place] [address] PCP - [employer] 05/31/21 Lexy Mei MD [address] [place] [address] PCP - General Family Medicine 01/12/24 Soraida Bethea NP [address] [place] [address] Nurse Practitioner Family Medicine 01/12/24 [employer]er Relationship Specialty Start Date End Date Elmira Brown DO [address] [place] [address] PCP - [employer] 05/31/21 Lexy Mei MD [address] [place] [address] PCP - General Family Medicine 01/12/24 Soraida Bethea NP [address] [place] [address] Nurse Practitioner Family Medicine 01/12/24 [employer]er Relationship Specialty Start Date End Date Elmira Brown DO [address] [place] [address] PCP - [employer] 05/31/21 Lexy Mei MD [address] [place] [address] PCP - General Family Medicine 01/12/24 Soraida Bethea NP [address] [facility] [place] [address] Nurse Practitioner Family Medicine 01/12/24 [employer]er Relationship Specialty Start Date End Date Elmira Brown DO [address] [address] PCP - [employer] 05/31/21 Leyx Mei MD [address] [facility] [place] [address] PCP - General Family Medicine 01/12/24 Soraida Bethea NP [address] [place] [address] Nurse Practitioner Family Medicine 01/12/24 [employer]er Relationship Specialty Start Date End Date Elmira Brown DO [address] [facility] [place] [address] PCP - [employer] 05/31/21 Lexy Mei MD [address] [facility] [place] [address] PCP - General Family Medicine 01/12/24 Soraida Bethea NP [address] [facility] [place] [address] Nurse Practitioner Family Medicine 01/12/24 [employer] Relationship Specialty Start Date End Date Elmira Brown DO [address] [place] [address] PCP - [employer] 05/31/21 Lexy Mei MD [address] [place] [address] PCP - General Family Medicine 01/12/24 Soraida Bethea NP [address] [place], [place] [id number] Nurse Practitioner Family [facility] 01/12/24 [employer] Relationship Specialty Start Date End Date Elmira Brown DO [address] [place] [address] PCP - General 02/28/23 Team Status: Active Member Role Status Dates Soraida Bethea OCCUPANCY SPECIALIST-C Primary Care Provider Activ e Team Status: Active Member Role Status Dates Soraida Bethea NP-C Primary Care Provider Activ e Start: May 02, 2025 Albin Bonner MD Attending Provider Active Star t: May 02, 2025 Team Status: Inactive Member Role Status Dates Soraida Bethea OCCUPANCY SPECIALIST-C Primary Care Provider Activ e Start: May 10, 2025 End: May 10, 2025 Albin Bonner MD Attending Provider Active Star t: May 10, 2025 End: May 10, 2025 [employer] Relationship Specialty Start Date End Date Elmira Brown DO [address] [id number] PCP - [employer] 05/31/21 Lexy Mei MD [address] [place], [place] [id number] PCP - General Family Medicine 01/12/24 Soraida Bethea NP [address] [place] [address] Nurse Practitioner Family Medicine 01/12/24 [employer]er Relationship Specialty Start Date End Date Elmira Brown DO [address] [facility] [address] [place] [address] PCP - [employer] 05/31/21 Lexy Mei MD [address] [place] [address] PCP - General Family Medicine 01/12/24 Soraida Bethea NP [address] [place] [address] Nurse Practitioner Family Medicine 01/12/24 [employer]er Relationship Specialty Start Date End Date Elmira Brown DO [address] [facility] [address] [facility] [place] [address] PCP - [employer] 05/31/21 Lexy Mei MD [address] [place] [address] PCP - General Family Medicine 01/12/24 Soraida Bethea NP [address] [place] [address] Nurse Practitioner Family Medicine 01/12/24 REASON FOR VISIT (unrecogniz ed section and content) Reason Comments Med Refill Reason Comments Earache Reason Onset Date Comments Injection 01/17/2025 Reason Comments Pain Reason Comments Medicare Annual Wellness Visit Subsequen t Reason Comments ER Follow-up Goals (unrecognized section and content) Goals may [...] BE BASED ON THE PRIMARY CLINICAL RECORDS. [facility] [employer] [facility]. provides no warranty or guarantee of the accuracy or completeness of information in this document.
[2025-09-08 12:12] VITALS: BP 117/65; PULSE 67; TEMP 36.4; O2SAT 99; BMI 23.4
--- NOTE | 2025-09-09 21:08 | ED_ITS ---
HPI HPI - General Adult General Chief complaint: Abdominal Pain Stated complaint: CONSTIPATION ABDOMINAL PAIN RECTAL BLEEDING Time Seen by Provider: 09/08/25 12:00 Source: patient and family Mode of arrival: walk-in Limitations: no limitations History of Present Illness HPI narrative: Patient is an 85-year-old female presenting to the emergency department for concerns of constipation. Patient states that she has not had a bowel movement in 4 days. She is still passing gas. She states has been trying Colace, suppositories, and MiraLAX at home. She denies any nausea or vomiting. She denies any associated abdominal pain. No fevers or chills. She is not on chronic opiates. No chest pain or shortness of breath. Denies history of intra-abdominal surgeries. Related Data Home Medications ?Medication ?Instructions ?Recorded ?Confirmed amlodipine 5 mg tablet 5 mg 07/28/25 anastrozole 1 mg tablet 1 mg 07/28/25 apixaban 2.5 mg tablet (Eliquis) 2.5 mg 07/28/25 atorvastatin 10 mg tablet mg 07/28/25 benazepril 10 mg tablet 10 mg 07/28/25 calcium 600 mg (as 1 tab PO 07/28/25 carbonate)-vitamin D3 10 mcg (400 unit) tablet empagliflozin 10 mg tablet 10 mg 07/28/25 (Jardiance) furosemide 40 mg tablet 40 mg 07/28/25 latanoprost 0.005 % eye drops 1 drp ophthalmic (eye) 0 07/28/25 metoprolol succinate 200 mg 200 mg PO 07/28/25 tablet,extended release 24 hr sitagliptin phosphate 50 mg tablet 50 mg 07/28/25 (Januvia) Previous Rx's ?Medication ?Instructions ?Recorded ranolazine 500 mg tablet,extended 500 mg PO BID #20 ta bs 07/28/25 release,12 hr Allergies Allergy/AdvReac Type Severity Reaction Status Date / Time No Known Drug Allergies Allergy Verified 09/08/25 12:17 Opioid HPI Opioid Management Most Recent Opioid Data: Last Pain Scale 6 09/08/25, 12:40 Review of Systems ROS Status of ROS 10 or more systems reviewed and unremark able except as noted in history and below PFSH PFSH Social History Little interest or pleasure in doing things: not at all Feeling down, depressed, or hopeless: not at all Exam Narrative Exam Narrative: CONSTITUTIONAL: Well-appearing, answering questions and following commands appr opriately SKIN: Was warm and dry. EYES: Sclerae white. EARS, NOSE, THROAT: Moist oral mucosa. RESPIRATORY: Clear to auscultation bilaterally, no wheezes, crackles, or stridor, no use of accessory muscles CARDIOVASCULAR: Normal rate and regular rhythm. There is no S3, S4, murmur, rub. GASTROINTESTINAL: Abdomen is soft, nontender, nondistended. No rebound tenderness or guarding. MUSCULOSKELETAL: No peripheral edema. NEUROLOGIC: Patient is awake and alert. Ambulates with a steady gait Constitutional Vital Signs, click to edit/add: Last Vital Signs Temp 97.6 F 09/08/25 12:12 Pulse 67 09/08/25 12:12 Resp 16 09/08/25 12:12 BP 117/65 09/08/25 12:12 Pulse Ox 99 09/08/25 12:12 O2 Del Method Room Air 09/08/25 12:12 Course Vital Signs Vital signs: Vital Signs Temperature 97.6 F 09/08/25 12:12 Pulse Rate 67 09/08/25 12:12 Respiratory Rate 16 09/08/25 12:12 Blood Pressure 117/65 09/08/25 12:12 Pulse Oximetry 99 09/08/25 12:12 Oxygen Delivery Method Room Air 09/08/25 12:12 Temperature 97.6 F 09/08/25 12:12 Pulse Rate 67 09/08/25 12:12 Respiratory Rate 16 09/08/25 12:12 Blood Pressure 117/65 09/08/25 12:12 Pulse Oximetry 99 09/08/25 12:12 Oxygen Delivery Method Room Air 09/08/25 12:12 Medical Decision Making [facility] Narrative Medical decision making narrative: Patient is an 85-year-old female presenting to the emergency department the 4- day history of constipation. No abdominal pain, nausea, or vomiting. She is tolerating p.o. appropriately. Her vital signs are within normal limits. She is afebrile hemodynamically stable. Her abdomen is soft and nontender. Patient's exam is not consistent with surgical etiologies of abdominal pain such as appendicitis, cholecystitis, or perforated viscus. I did initially order an abdominal x-ray and enema. However, the patient subsequently had a large bowel movement. She did have me inspect the bowel movement. It was normal in caliber without melena or hematochezia. She states she feels better and feels comfortable being discharged home now. Return precautions are given including any new or concerning symptoms. She was instructed follow-up with her PCP as needed. Patient understands and agrees to plan. FINAL IMPRESSION: #Acute constipation, resolved DISPOSITION: Discharged home CONDITION: Good Discharge Plan Discharge Chief Complaint: Abdominal Pain Clinical Impression: Constipation Patient Disposition: Home, Self-Care Time of Disposition Decision: 13:25 Condition: Good Mode of Transportation: Private Vehicle Prescriptions / Home Meds: No Action furosemide 40 mg tablet 40 mg latanoprost 0.005 % drops 1 drp OPHTHALMIC (EYE) anastrozole 1 mg tablet 1 mg atorvastatin 10 mg tablet metoprolol succinate 200 mg tablet extended release 24 hr 200 mg PO amlodipine 5 mg tablet 5 mg benazepril 10 mg tablet 10 mg Januvia 50 mg tablet 50 mg Eliquis 2.5 mg tablet 2.5 mg Jardiance 10 mg tablet 10 mg calcium carbonate-vitamin D3 600 mg-10 mcg (400 unit) tablet 1 tab PO ranolazine 500 mg tablet extended release 12 hr 500 mg PO BID Qty: 20 0RF Print Language: Fijian Instructions: Constipation (ED) Referrals: Soraida Bethea NP [Primary Care Provider] - 1 week Discharge Date/Time: 09/08/25 13:42
== END 2025-09-08 13:42 | disposition home or self-care (01) ==
PROVIDERS: Emergency Provider Student in an Organized Health Care Education/Training Program; PCP Nurse Practitioner Family
DX: K59.00 Constipation, unspecified (principal)
CPT/HCPCS: 99281

== ENCOUNTER 2025-11-08 09:13 | Outpatient (OUT) | payer MEDICARE, SELFPAY ==
--- OUTSIDE RECORDS SUMMARY | 2025-11-08 09:40 | XMS_ITS | CCD ---
Author Organization [facility] Inform ion Partnership [facility] Care Team Providers Care Radio Journalist Name Role Phone Zachary Boyle Primary Care Provider [phone] ANABEL DUNCAN Referring Unavailable ANABEL DUNCAN Referring Unavailable ZACHARY BOYLE Primary Care Unavailable Albin Bonner Unavailable Zachary Boyle Primary Care Provider Kelvin Maya MD [place] Primary Care Provider [place], DR ZACHARY Bermudez Primary Care Unavailable FURLONG, DR ZACHARY Bermudez Consulting Unavailable FURLONG, DR ZACHARY Bermudez Attending Unavailable FURLONG, DR ZACHARY Bermudez Admitting Unavailable MOBILE, DR CHARIS Maya Consulting Unavailable MISC, DR [...] Unavailable Fredy DO, [place] Primary Care Provider [phone] KOLEDA, IMAN Referring Unavailable FREDY, ELMIRA Primary Care Unavailable KOLEDA, IMAN Referring Unavailable FREDY, ELMIRA Primary Care Unavailable Fredy DO, [place] G Unavailable SORAIDA BETHEA Attending Unavailab ROCHELLE Adams Attending Unavailable SORAIDA BETHEA Attending Unavailab SORAIDA Muller Attending Unavailab CORWIN Marti Referring Unavailable MOUKARBEL, ONEL Attending Unavailable CORWIN MONTIEL Referring Unavailable JUVE RAYMUNDO Attending Unavailable MOUKAONEL CABA Referring Unavailable MOUKARBEL, ONEL Referring Unavailable MOUKARBEL, ONEL Admitting Unavailable MOUKARBEL, ONEL Attending Unavailable MOUKARBEL, ONEL Admitting Unavailable RICHARD VU Attending Unavailable MOUKARBEL, ONEL Admitting Unavailable ONEL WRIGHT Attending Unavailable MARC LARA Referring Unavailable ONEL WRIGHT Referring Unavailable SELENA, ONEL Referring Unavailable SELENA, ONEL Referring Unavailable ONEL WRIGHT Referring Unavailable ONEL WRIGHT Attending Unavailable TIANA, CORWIN Referring Unavailable MONTIEL, CORWIN Referring Unavailable MONTIEL, CORWIN Referring Unavailable MONTIEL, CORWIN Referring Unavailable DHEERAJ SESAY Attending Unavailable DHEERAJ SESAY Attending Unavailable Medications Current Medications MedicationDrug Class(es)DatesSig (Normalized)Sig (Original)amLODIPine 5 mg oral tablet (20 sources)Dihydropyridine Calcium Channel BlockerStart: 12-03-2023 End: 53-53-9438ukIDLEWfal (Norvasc) 5 MG tablet Indications: Primary hypertension TAKE 1 TABLET EVERY DAY 90 tablet 3 10/01/2024 Activeapixaban 2.5 mg oral tablet (20 sources)Factor Xa InhibitorStart: 02-03-2024 End: 96-97-2943spwy 1 tablet by mouth twice dailyApixaban 2.5 mg tablet Active 2.5 MG PO Twice daily January 04, 2025 1:00amStart: 91-49-8760yvta 1 tablet by mouth onceELIQUIS 2.5 MG TABS tablet TAKE ONE TABLET BY MOUTH EVERY TWELVE HOURS 01/17/2022 Activeatorvastatin 10 mg oral tablet (20 sources)HMG-CoA Reductase InhibitorStart: 2021 End: 99-39-5177wclhplcsdqki (Lipitor) 10 MG tablet Indications: Mixed hyperlipidemia TAKE 1 TABLET EVERY DAY 90 tablet 3 06/01/2025 Activebenazepril hydrochloride 10 mg oral tablet (20 sources)Angiotensin Converting Enzyme InhibitorStart: 07-12-2021 End: 14-10-3813hcadjhgooy (Lotensin) 10 MG tablet Indications: Primary hypertension TAKE 1 TABLET EVERY DAY 90 tablet 3 10/15/2024 ActiveBlood Glucose Monitoring Suppl (True Metrix Meter) w/Device kit (20 sources)Start: 44-85-2768Tmrte Glucose Monitoring Suppl (True Metrix Meter) w/Device kit 08/20/2022 ActiveStart: 25-24-9328Wzzve Glucose Monitoring Suppl (True Metrix Meter) w/Device kitCalcium Carb-Cholecalciferol (CALCIUM CREAMIES) 600-10 MG-MCG CHEW (1 source)Start: 53-86-7503dsrt 2 tablets by mouth once daily at breakfast Calcium Carb-Cholecalciferol (CALCIUM CREAMIES) 600-10 MG-MCG CHEW Indications: 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 2 tablet 0 04/29/2023 Active diphenhydrAMINE / Zinc acetate (1 source)Histamine-1 Receptor AntagonistdiphenhydrAMINE-Zinc Acetate (BENADRYL ITCH RELIEF EX) Apply 1 application topically as needed (itching rash to L upper arm) Activedocusate sodium 100 mg oral capsule (20 sources)Start: 02-03-2024 End: 92-75-3025qvxg 1 capsule by mouth once daily as neededDocusate Sodium 100 mg capsule Active 100 MG PO Daily as needed August 31, 2024 2:49pm empagliflozin 10 mg oral tablet (20 sources)Sodium-Glucose Cotransporter 2 InhibitorStart: 01-06-2024 End: 22-71-1537noce 10 mg by mouth in the morningempagliflozin (Jardiance) 10 MG Take 10 mg by mouth in the morning. 01/06/2024 Activefurosemide 40 mg oral tablet (20 sources)Loop DiureticStart: 59-69-7743Enocpjijtv 40 mg tablet Active 20 MG PO Twice daily May 10, 2025 11:36amStart: 05-09-2025 End: 29-05-8128Najjhfcrcd 40 mg tablet Discontinued 0 .ROUTE .COMPLEX 180 May 09, 2025 9:44am May 10, 2025 11:37am TAKE 1 TABLET TWICE DAILYStart: 01-04-2025 End: 79-31-1639Phvehiqgsn 40 mg tablet Discontinued 60 MG PO Daily January 04, 2025 12:37pm May 09, 2025 9:44amStart: 12-13-2024 End: 15-81-3725Fihwoalrlx 40 mg tablet Discontinued 0 .ROUTE .COMPLEX 180 December 13, 2024 7:41pm January 04, 2025 12:38pm TAKE 1 TABLET TWICE DAILY Start: 07-22-2024 End: 02-73-9320Nfchcgnorn 40 mg tablet Discontinued 0 PO Twice daily August 31, 2024 2:49pm December 13, 2024 11:13am 40 mg in am, 20 mg in pm orally twice daily;Start: 05-28-2024 End: 33-58-2212uncq 1 tablet by mouth twice dailyFurosemide 40 mg tablet Discontinued 0 .ROUTE .COMPLEX 180 May 28, 2024 10:53am July 22, 2024 5:14pm TAKE 1 TABLET BY MOUTH TWICE A DAY FOR 90 DAYSStart: 02-03-2024 End: 95-87-4970czkh 1 tablet by mouth twice dailyFurosemide 40 mg tablet Discontinued 40 MG PO Twice daily 60 February 03, 2024 12:34pm May 28, 2024 10:53am FreeTextSi tablet Orally twice a day; Note: Source Status: Refill; Refills: 1; Qty: 180 Tablet; Provider: Kailey TalamantesStart: 72-34-2833bywq 2 tablets by mouth twice dailyfurosemide (LASIX) 20 MG tablet Take 2 tablets by mouth 2 times daily 10/16/2021 ActiveStart: 82-17-7336yqrr 1 tablet by mouth once dailyfurosemide (LASIX) 20 MG tablet TAKE 1 TABLET BY MOUTH EVERY DAY FOR 5 DAYS 0 10/16/2021 Activetake 1 tablet by mouth every twenty-four hoursFurosemide 40 MG 1 tablet Orally Once a day Activeisopropyl alcohol 0.7 ml/ml medicated pad (20 sources)Start: 07-03-4417Gawzvvv Swabs (DropSafe Alcohol Prep) 70 % pads 04/08/2023 Activelatanoprost 0.05 mg/ml ophthalmic solution (20 sources)Prostaglandin AnalogStart: 99-13-4373krjc 1 drop(s) into the eye(s) once daily in the eveningLatanoprost 0.005 % drops Active 1 DROPS OPHTHALMIC Daily February 03, 2024 1:00am FreeTextSi drop into affected eye in the evening Ophthalmic Once a day; Note: Source Status: Taking; Provider: Kailey Talamantes ( )Start: 05-24-7332yfzw 1 drop(s) into the eye(s) once dailylatanoprost (XALATAN) 0.005 % ophthalmic solution INSTILL 1 DROP INTO EYES EVERY NIGHT 12/17/2021 ActiveStart: 04-31-7327fqpmpejesnb (Xalatan) 0.005 % ophthalmic solution latanoprost 0.005 % eye drops 09/21/2021 Activetake 1 drop(s) into the eye(s) once daily in the eveningLatanoprost 0.005 % 1 drop into affected eye in the evening Ophthalmic Once a day Utmlro18 hr metFORMIN hydrochloride 500 mg extended release oral tablet (5 sources)BiguanideStart: 61-64-0914ravXAJOMS (GLUCOPHAGE-XR) 500 MG extended release tablet Take 1 tablet in the morning and 1/2 tablet in the evening 06/19/2021 Cwcwke00 hr metoprolol succinate 200 mg extended release oral tablet (20 sources)beta-Adrenergic BlockerStart: 90-54-1581rnkysasdri succinate XL (Toprol-XL) 200 MG 24 hr tablet Indications: Primary hypertension TAKE 1 TABLET EVERY DAY 90 tablet 3 05/23/2025 ActiveStart: 05-01-2021 End: 87-27-0682kzou 1 tablet by mouth once dailyMetoprolol Succinate 200 mg tablet extended release 24 hr Active 1 TAB PO Daily February 03, 2024 1:00am FreeTextSi tablet Orally Once a day; Note: Source Status: Taking; Provider: Kailey Talamantespioglitazone 30 mg oral tablet (15 sources)Peroxisome Proliferator Receptor alpha Agonist, Peroxisome Proliferator Receptor gamma Agonist, ThiazolidinedioneStart: 07-06-2021 End: 17-27-3934briwzkwtgvhj (ACTOS) 30 MG tablet daily 07/06/2021 Dgtshv10 hr ranolazine 500 mg extended release oral tablet (2 sources)Anti-anginalStart: 33-94-2689oyzv 1 tablet by mouth every twelve hours in the morningranolazine (Ranexa) 500 MG 12 hr tablet Take 500 mg by mouth in the morning and 500 mg before bedtime. 07/28/2025 ActiveSITagliptin 50 mg oral tablet (20 sources)Dipeptidyl Peptidase 4 InhibitorStart: 11-06-2023 End: 99-39-0284tdvi 1 tablet by mouth once dailySITagliptin (Januvia) 50 MG tablet Indications: Type 2 diabetes mellitus with chronic kidney disease, without long-term current use of insulin, unspecified CKD stage (HCC) Take 1 tablet (50 mg) by mouth Daily 90 tablet 3 01/31/2025 ActiveStart: 11-05-1892nifx 0.5 tablet by mouth once dailyJANUVIA 100 MG tablet Take 0.5 tablets by mouth daily 07/07/2021 ActiveStart: 00-34-8737XPAZXGJ 100 MG tablet daily 0 07/07/2021 Activesodium zirconium cyclosilicate 58697 mg powder for oral suspension (5 sources)Start: 19-97-4636jlll 1 dose by mouth once dailyLokelma 10 GM 1 packet dissolved in water Orally Once a day for 3 days Jan, Activetake 1 dose by mouth once dailyLokelma 10 GM 1 packet dissolved in water Orally Once a day for 4 days Activespironolactone 25 mg oral tablet (16 sources)Aldosterone AntagonistStart: 11-09-2021 End: 83-75-7797ampb 1 tablet by mouth once dailyspironolactone (ALDACTONE) 25 MG tablet spironolactone 25 mg tablet Take 1 tablet every day by oralroute for 90 days. 11/09/2021 ActiveVitamin D 25 MCG (1000 UT) (6 sources)take 1 tablet by mouth once dailyVitamin D 25 MCG (1000 UT) 1 tablet Orally Once a day ActiveVITAMIN D, CHOLECALCIFEROL, PO (5 sources)take 1000 [IU] by mouth once dailyVITAMIN D, CHOLECALCIFEROL, PO Take 1,000 Units by mouth daily ActiveVITAMIN D, CHOLECALCIFEROL, PO Take by mouth daily 0 Active Completed/Discontinued Medications MedicationDrug Class(es)DatesSig (Normalized)Sig (Original)anastrozole 1 mg oral tablet (20 sources)Aromatase InhibitorStart: 07-10-2021 End: 34-10-8967ldop 1 tablet by mouth once dailyAnastrozole 1 mg tablet Discontinued 1 TAB PO Daily February 03, 2024 1:00am August 31, 2024 2:52pm FreeTextSi tablet Orally Once a day; Note: Source Status: Taking; Provider: Kailey Talamantes ( )cholecalciferol 0.01 mg oral capsule (20 sources)Vitamin DStart: 08-31-2024 End: 74-13-6166gizz 1 capsule by mouth once dailyCholecalciferol (Vitamin D3) 10 mcg (400 unit) capsule Discontinued 10 MCG PO Daily August 31, 2024 12:00am August 31, 2024 2:52pmStart: 02-03-2024 End: 14-40-4572ksff 1 capsule by mouth once dailyCholecalciferol (Vitamin D3) 25 mcg (1,000 unit) capsule Active 25 MCG PO Daily August 31, 2024 12:00amtake 1 tablet by mouth in the morningcholecalciferol (Vitamin D3) 25 MCG (1000 UT) tablet Take 25 mcg by mouth in the morning. Activetake 1 tablet by mouth every twenty-four hoursVitamin D 25 MCG (1000 UT) 1 tablet Orally Once a day Active diphenhydrAMINE hydrochloride 0.02 mg/mg topical gel (1 source)Histamine-1 Receptor AntagonistStart: 02-03-2024 End: 65-91-4017Ehiwggsdinsyawv Hcl (Benadryl) 2 % gel Discontinued 1 APPLIC TOPICAL Twice daily February 03, 2024 1:00am August 31, 2024 2:52pm1 ml methylPREDNISolone acetate 40 mg/ml injection (4 sources)CorticosteroidStart: 01-17-2025 End: 96-25-1657llxyeeXDXVPMYzqbut acetate (DEPO-Medrol) injection 40 mgStart: 01-17-2025 End: 42-40-332075 mg, Intra-articular, Once PRN Procedure, Starting on Fri01/17/25 at 2009, For 1 dose Problems Active Problems Problem ClassificationProblemDateDocumented DateEpisodic/ChronicCancer of ovary (20 sources)Malignant tumor of ovary; Translations: [Malignant neoplasm of unspecified ovary]Onset: 12-28-2021 Resolved: 588916-79-7286SifhqcsIeyqvd of ovary (1 source)History of malignant neoplasm of ovary; Translations: [Personal history of malignant neoplasm of ovary]EpisodicCardiac dysrhythmias (20 sources)Permanent atrial fibrillation; Translations: [Permanent atrial fibrillation]Onset: 390056-91-6400PjdxjulPulalpa dysrhythmias (2 sources)Bradycardia, unspecified; Translations: [Bradycardia, unspecified] Onset: 66-93-7473DjqdndrfEcnxjlb kidney disease (20 sources)Chronic kidney disease stage 4; Translations: [Chronic kidney disease, stage 4 (severe)]Onset: 12-28-2021 Resolved: 33-62-5733FhgatinAsluzyx kidney disease (4 sources)Chronic kidney disease; Translations: [Chronic kidney disease, stage 3b]Onset: 77-52-6230Nsnjwzu obstructive pulmonary disease and bronchiectasis (20 sources)Chronic obstructive lung disease; Translations: [Chronic obstructive pulmonary disease, unspecified]Onset: 856849-95-7682CsyjungEoftnobcex disorders (2 sources)Other specified heart block; Translations: [Other specified heart block]Onset: 49-21-7470VtkzccsRivxwjfreo heart failure; nonhypertensive (20 sources)Heart failure; Translations: [Heart failure, unspecified]Onset: 10-16-2021 Resolved: 667164-53-2975PtbftkvHqpghrkj atherosclerosis and other heart disease (4 sources)Atherosclerotic heart disease of [place] coronary artery with other forms of angina pectoris; Translations: [Atherosclerotic heart disease of [place] coronary artery without angina pectoris]Onset: 90-51-1393BvtpdhcAieorzcz mellitus with complications (20 sources)Type 2 diabetes mellitus with diabetic chronic kidney disease; Translations: [Type 2 diabetes mellitus with peripheral angiopathy]Onset: 146706-46-1359PwgnqitPxtynxaz mellitus without complication (20 sources)Type 2 diabetes mellitus; Translations: [Type 2 diabetes mellitus without complications]Onset: 12-28-2021 Resolved: 68-10-8179RpifnjwYyqlpeiwt of lipid metabolism (20 sources)Mixed hyperlipidemia; Translations: [Mixed hyperlipidemia]Onset: 12-28-2021 Resolved: 502918-77-8980FiyggqzC Codes: Fall (1 source)Fall on same level from slipping, tripping and stumbling with subsequent striking against unspecified object, initial encounter; Translations: [FALL SAME LVL SLIP STRK UNS OBJ INT]Onset: 63-91-0602PizwyxtoEvufebgbs hypertension (20 sources)Essential hypertension; Translations: [Essential (primary) hypertension]Onset: 12-28-2021 Resolved: 19-13-8885XkqzizaRcjjq valve disorders (20 sources)Nonrheumatic aortic (valve) stenosis; Translations: [Combined rheumatic disorders of mitral, aorticand tricuspid valves]Onset: 11-09-2021 ChronicHypertension with complications and secondary hypertension (12 sources)Hypertensive heart disease with heart failure; Translations: [Hypertensive heart and chronic kidneydisease with heart failure and stage 1 through stage 4 chronic kidney disease, or unspecified chronic kidney disease] Onset: 59-58-6795GadpmzdTknlqkaqzrjkl and screening for infectious disease (1 source)Encounter for immunization; Translations: [ENCOUNTER FOR IMMUNIZATION] Onset: 22-66-7793CaxkwoejAbmmlxt and fatigue (2 sources)Fatigue; Translations: [Fatigue]Onset: 87-39-6816PnnbnhdzAjeekxtskgi chest pain (1 source)Chest pain, unspecified; Translations: [CHEST PAIN UNSPECIFIED]Onset: 14-52-4780HkyahlafBlxkrxlenaq deficiencies (14 sources)Vitamin D deficiency; Translations: [Vitamin D deficiency, unspecified]Onset: 04-50-4642SopalqvYpjcouowi or stenosis of precerebral arteries (2 sources)Occlusion and stenosis of unspecified carotid artery; Translations: [Occlusion and stenosis of unspecified carotid artery]Onset: 20-83-6535Isdthwt Osteoarthritis (2 sources)Arthritis of left acromioclavicular joint; Translations: [Primary osteoarthritis, left shoulder]55-05-5654RwdblghMxbhylcmurqb (1 source)Age-related osteoporosis without current pathological fracture; Translations: [Age-related osteoporosis without current pathological fracture] Onset: 00-29-6898VugjwfaHxnqr aftercare (1 source)Other residential (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; Translations: [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]Onset: 79-07-7798TvfobdssRxrsn aftercare (1 source)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; Translations: [ASSISTED CURRNT USE ANTICOAGULANTS]Onset: 12-97-5180BrusalgpQebji connective tissue disease (1 source)Pain in right leg; Translations: [PAIN IN RIGHT LEG]Onset: 03-20-2023 EpisodicOther connective tissue disease (1 source)Pain in left leg; Translations: [PAIN IN LEFT LEG]Onset: 03-20-2023 EpisodicOther connective tissue disease (4 sources)Impingement syndrome of left shoulder region; Translations: [Impingement syndrome of left shoulder]19-82-8820LutaaqzoBpzio ear and sense organ disorders (20 sources)Bilateral hearing loss; Translations: [Unspecified hearing loss, bilateral]Onset: 042051-61-8504DsomhdwSwfcc ear and sense organ disorders (20 sources)Mixed conductive AND sensorineural hearing loss; Translations: [Mixed conductive and sensorineural hearing loss, unilateral, right ear with restricted hearing on the contralateral side]Onset: hronic Other ear and sense organ disorders (2 sources)Excessive cerumen in ear canal ; Translations: [Impacted cerumen, bilateral]65-17-7592RaeddzmyAzbay injuries and conditions due to external causes (1 source)Other specified injuries of head, initial encounter; Translations: [OTH SPEC INJURIES HEAD INITIAL ENC]Onset: 83-51-2054JubkkpuhOnqft non-traumatic joint disorders (2 sources)Chronic pain of left upper limb; Translations: [Pain in left shoulder]87-67-3224MkubcjjiJhasj nutritional; endocrine; and metabolic disorders (4 sources)Hyperuricemia without signs of inflammatory arthritis and tophaceous disease; Translations: [Other abnormal blood chemistry]EpisodicPeripheral and visceral atherosclerosis (20 sources)Atherosclerosis of aorta; Translations: [Atherosclerosis of aorta] Onset: 248667-23-4309MtofubaEimuperzp heart disease (20 sources)Pulmonary hypertension; Translations: [Pulmonary hypertension, unspecified]Onset: 840389-95-6091XqbeshhHazsbyfeaae injury; contusion (1 source)Abrasion of scalp, initial encounter; Translations: [ABRASION OF SCALP INITIAL ENCOUNTER]Onset: 34-71-3972JipxmwfvSbgrbfqomkdj (1 source)Other persistent atrial fibrillation; Translations: [OTHR PERSISTENT ATRIAL FIBRILLATION]Onset: 14-58-1532Czqvtdbcojoq (2 sources)Post-op TAVR; Translations: [Post-op TAVR]Onset: 10-13-2025 Unclassified (1 source)Encounter for other specified prophylactic measures; Translations: [Encounter for other specified prophylactic measures]Onset: 10-04-2025 Unclassified (2 sources)Chronic atrial fibrillation, unspecified; Translations: [Chronic atrial fibrillation, unspecified]Onset: 41-28-3126Njsnoszbveuq (2 sources)Longstanding persistent atrial fibrillation; Translations: [Longstanding persistent atrial fibrillation]Onset: 09-06-2022 Past or Other Problems Problem ClassificationProblemDateDocumented DateEpisodic/ChronicAllergic reactions (20 sources)Atopic dermatitis; Translations: [Intrinsic (allergic) eczema]Onset: 04-09-2023 Resolved: 507004-43-2521RpuveqlRupba and electrolyte disorders (7 sources)Hyperkalemia; Translations: [Hyperkalemia]Onset: 02-86-7637Hrpelsue Genitourinary symptoms and ill-defined conditions (20 sources)Randall hematuria; Translations: [Gross hematuria]Onset: 09-26-2021 Resolved: 27-21-8926UlrblvojXigtirblqq disorders (20 sources)Postmenopausal bleeding; Translations: [Postmenopausal bleeding] Onset: 09-26-2021 Resolved: 945401-59-9766NvsmkccJgohriyor of unspecified nature or uncertain behavior (20 sources)Borderline epithelial tumor of ovary; Translations: [Neoplasm of uncertain behavior of unspecified ovary]Onset: 11-32-7252YnmoqpxtWvrjy acquired deformities (20 sources)Lumbar spondylolisthesis; Translations: [Spondylolisthesis, lumbar region]Onset: 767279-32-4088GwtnwyfbQsfka and unspecified benign neoplasm (20 sources)Serous cystadenoma of left ovary; Translations: [Benign neoplasm of left ovary]Onset: 738388-46-9395YswzqmmmUqmzg connective tissue disease (20 sources)Tear of left rotator cuff; Translations: [Unspecified rotator cuff tear or rupture of left shoulder, not specified as traumatic]Onset: 04-09-2023 Resolved: 385050-30-5040BkxzmpvlPdzol connective tissue disease (20 sources)Supraspinatus tear; Translations: [Unspecified rotator cuff tear or rupture of left shoulder, not specified as traumatic]Onset: 04-09-2023 Resolved: 622057-66-1551FvqlgaczBzsqr connective tissue disease (20 sources)Pain in upper limb; Translations: [Pain in right arm]Onset: 02-22-2016 Resolved: 277431-76-6288KjtconbzTvczy connective tissue disease (20 sources)Tendonitis of left shoulder; Translations: [Other enthesopathies, not elsewhere classified]Onset: 02-22-2016 Resolved: 636290-60-8938RohkpfdsUocxm ear and sense organ disorders (20 sources)Bilateral tinnitus; Translations: [Tinnitus, bilateral]Onset: 04-09-2023 Resolved: 562504-13-7172KfnvtaskRekto female genital disorders (20 sources)Vulval and/or perineal noninflammatory disorders; Translations: [Noninflammatory disorder of vulva and perineum, unspecified]Onset: 03-12-2023 Resolved: 703531-79-5844PzswyimvFngpx female genital disorders (20 sources)Dystrophy of vulva; 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]Onset: 01-12-2024 Resolved: 335488-78-8573OdxfbxlsShnzn nutritional; endocrine; and metabolic disorders (3 sources)Hyperuricemia; Translations: [Hyperuricemia without signs of inflammatory arthritis and tophaceous disease]Onset: EpisodicOther screening for suspected conditions (not mental disorders or infectious disease) (7 sources)Encounter for screening mammogram for malignant neoplasm of breast; Translations: [Patient encounter status]Onset: 99-55-2595RebnsfwrPebnrvav codes; unclassified (4 sources)Flushing; Translations: [FLUSHING]Onset: 44-65-8680BxzgeluiIpqfwxmc codes; unclassified (1 source)Family history of malignant neoplasm of ovary; Translations: [FAM HX MALIGNANT NEOPLASM OVARY]Onset: 68-03-9513MxfpqnguCykilezp codes; unclassified (20 sources)Acquired absence of cervix and uterus; Translations: [Acquired absence of both cervix and uterus]Onset: 634853-79-1403ZorwplumJoxutolu codes; unclassified (20 sources)Bilateral acquired absence of ovary; Translations: [Acquired absence of ovaries, bilateral]Onset: 492287-15-0884XuiomebyRccxtjqm codes; unclassified (20 sources)Memory impairment; Translations: [Other amnesia]Onset: 04-09-2023 73-54-7193UugruwykPmsjxdervgw; intervertebral disc disorders; other back problems (20 sources)Narrowing of intervertebral disc space; Translations: [Other intervertebral disc degeneration, lumbar region]Onset: 04-20-2015 Resolved: 719578-60-5936RhbrbsuCowcjlpfsuf; intervertebral disc disorders; other back problems (20 sources)Low back pain; Translations: [Low back pain]Onset: 04-20-2015 Resolved: 510058-69-0608SrvqkzwdHrdzjdugvekz (1 source)Onset: 495036-67-3079Dgpjdifntlya (1 source)Encounter for other specified prophylactic measures; Translations: [Encounter for other specified prophylactic measures]Onset: 02-72-5573Dzcqaqsc veins of lower extremity (20 sources)Varicose veins of right lower limb; Translations: [Asymptomatic varicose veins of right lower extremity]Onset: 098567-64-9929Xgkfjisk Results Test NameValueInterpretationReference MholwLnkpijyf60eq 11-13-202537*Cut metoprolol in half so taking 50mg daily. *Monitor blood pressure and HR daily, write down readingsNormalUniMedina Hospital36on [id number] the niece is able to get her into see Yennifer tomorrow, ANTONI.NormalCleveland Clinic [facility]36I was able to get in touch with the people at [facility] who do the monitors. They scanned in some pauses that showed. FYINormalUniMedina Hospital 36Patient's home health nurse called to make you aware of bradycardia around 48. BP has been good, around 134/65. She said patient is only c/o fatigue. She was originally scheduled to follow up TAVR with Yennifer on 10/13 but her niece is unable to bring her here. She is scheduled 10/18 with Yennifer. She is on metoprolol succinate 100mg daily. I am going to contact Pan and [place] to see if there are strips are that viewable to them (monitor was placed at [facility] so I'm unable to see them). Please advise. Thanks.[facility]36on [id number] 1 week follow-up scheduled? Canceled Has 30 day echo and follow-up visit scheduled? Yes Any trouble breathing? None Any fever above 100 degrees or chills? No Access site: Hematoma: Estimated size? Ecchymosis: Drainage? If so, is it clear? -Access sites being monitored by [facility] nurse who told them that everything is looking good. Neuro: Any vision changes or blurred vision? None Transient loss of peripheral vision? None Any slurred speech or episodes of confusion? None Fluid retention: Any changes to urinary output? No Reminded of dental prophylaxis? (Lifetime for valve) Yes Spoke with patient's niece, Lizabeth, who stated the patient is experiencing some fatigue and decreased appetite, but overall doing well.[facility] HospitalTelephoneon [id number] Yesy Rodriguez J 1940 Date Provider Department Center 10/10/2025 [id number]-JELXFAGMENA HERRERA [facility] LAB ND HeartVAS Family History Problem Relation Age of Onset Heart attack Mother Heart attack Brother Family Status - Relation Status Age at Mother Father Brother Reason for Visit and Comments: Post TAVR call [Other][facility]30on The patient is Moderately Stable - Low risk of patient condition declining or worsening The patient's goals for the shift include comfort, rest The clinical goals for the shift include stable vitals, safetyNormalUniversity of Memorial Hermann Memorial City Medical CenterOrders Onlyon [id number] [id number] Yesy Rodriguez J 1940 Date Provider Department Center 10/06/2025 [id number]-RJHQQEMARC BOYD [facility] HEART ND HeartVAS Family History Problem Relation Age of Onset Heart attack Mother Heart attack Brother Family Status - Relation Status Age at Mother Father BrotherNormalUniversMarietta Osteopathic ClinicPOCT GLUCOSE METER UNSOLICITED RESULTSon 29-13-0712Dplpxdy [Mass/Vol]85 mg/jWJiufpa33-982GaznnlctrmAkron Children's HospitalComment on above:Order Comment: Waived Testing in the ED is performed under the ED CLIA certificate #[id number].Result Comment: [email or web address] Performed By: #### [id number] #### [facility] ([facility]) [address] [place], [place] [address]Jdrakbd [Mass/Vol]101 mg/fIEbbvyp46-973YvghusioetAkron Children's HospitalComment on above:Order Comment: Waived Testing in the ED is performed under the ED CLIA certificate #[id number].Result Comment: [email or web address] Performed By: #### [id number] #### [facility] ([facility]) [address] [place], [place] [address]qh [id number] patient is Moderately Stable - Low risk of patient condition declining or worsening The patient's goals for the shift include stable vitals, safety. Problem: Pain - Adult Goal: Verbalizes/displays adequate comfort level or baseline comfort level Outcome: Progressing Problem: Safety - Adult Goal: Free from fall injury Outcome: Progressing Problem: Discharge Planning Goal: Discharge to home or other facility with appropriate resources Outcome: Progressing Problem: Chronic Conditions and Co-morbidities Goal: Patient's chronic conditions and co-morbidity symptoms are monitored and maintained or improved Outcome: Progressing Problem: Skin/Tissue Integrity - Adult Goal: Incisions, wounds, or drain sites healing without S/S of infection Outcome: Progressing The clinical goals for the shift include comfort, rest.NormalUnAkron Children's Hospital30The patient is Moderately Stable - Low risk of patient condition declining or worsening The patient's goals for the shift include comfort The clinical goals for the shift include comfortNormalUniMedina HospitalCBCon 86-33-1957Spnixnjwlaz distribution width (RBC) [Ratio]14.6 % Zhqvip87.5-15.0UnAkron Children's HospitalComment on above:Performed By: #### [id number] #### [facility] ([facility]) [address] [place], [place] [address]EDCRSPZWVRP MEAN CORPUSCULAR HEMOGLOBIN CONCENTRATION (G/DL) BY YEJURAYBK98.0 g/mJXchaap19.0-35.0UnAkron Children's HospitalComment on above:Performed By: #### [id number] #### [facility] ([facility]) [address] [place] [place], [place] [address]Pudylnwdth (Bld) [Volume fraction]39.7 %Huhczw39.0-45.0 [facility] HospitalComment on above:Performed By: #### [id number] #### [facility] ([facility]) [address] [place] [place], [place] [address]Ydbdrrubqr (Bld) [Mass/Vol]12.7 g/zGAvboou33.0-15.0UnAkron Children's HospitalComment on above:Performed By: #### [id number] #### [facility] ([facility]) [address] [place], [place] [address]DZZCIYPN PLATELET FRACTION %3.0 %Normal0.8-6.3UnAkron Children's HospitalComment on above:Performed By: #### [id number] #### [facility] ([facility]) [address] [place], [place] [address]JIW (RBC) [Entitic mass]32.0 soZxqwxb49.0-33.0UnAkron Children's HospitalComment on above:Performed By: #### [id number] #### [facility] ([facility]) [address] [place], [place] [address]YFV (RBC) [Entitic vol]100.0 pCIvyt05.0-98.0UnAkron Children's HospitalComment on above:Performed By: #### [id number] #### [facility] ([facility]) [address] [place], [place] [address]Voeapqfl mean volume (Bld) [Entitic vol]11.1 fLNormal7.5-11.5 [facility] HospitalComment on above:Performed By: #### [id number] #### [facility] ([facility]) [address] [place] [address]WAULGYEXP (10*3/UL) IN BLOOD AUTOMATED SIBTN292 10*3/uLNormal 150-400UnAkron Children's HospitalComment on above:Performed By: #### [id number] #### [facility] ([facility]) [address] [place] [address]UBW (Bld) [#/Vol]3.97 10*6/uLNormal3.80-5.00UnAkron Children's HospitalComment on above:Performed By: #### [id number] #### [facility] ([facility]) [address] [place] [address]XDG (Bld) [#/Vol]11.35 10*3/uLHigh4.00-10.60UnAkron Children's HospitalComment on above:Performed By: #### [id number] #### [facility] ([facility]) [address] [place] [address]QLKKYTCTESEET METABOLIC PANELon 49-21-2844Dxkxlze [Mass/Vol]4.1 g/dLNormal3.5-5.7UnAkron Children's HospitalComment on above:Performed By: #### [id number] ####[facility] ([facility])[address] [place] [address] ALP [Catalytic activity/Vol]100 U/RNbswmd32-082DpuidfhdnvAkron Children's HospitalComment on above:Performed By: #### [id number] ####[facility] ([facility])[address] [place] [address]RBV [Catalytic activity/Vol]20 U/L Normal7-52UnAkron Children's HospitalComment on above:Performed By: #### [id number] ####[facility] ([facility])[address] [place], [place] [address]Qanzn gap [Moles/Vol]21 mmol/LHigh7-20UnAkron Children's HospitalComment on above: Performed By: #### [id number] ####[facility] ([facility])[address] [place] [address]MWM [Catalytic activity/Vol]36 U/UIbvecb03-63XksxfrnzydAkron Children's HospitalComment on above:Performed By: #### [id number] ####[facility] ([facility])[address] [place] [address]Duqyjgsaq [Mass/Vol]0.8 mg/dLNormal 0.3-1.0UnAkron Children's HospitalComment on above:Performed By: #### [id number] ####[facility] ([facility])[address] [place], [place] [address]Mtqhngn [Mass/Vol]8.9 mg/dLNormal8.6-10.3UnAkron Children's HospitalComment on above:Performed By: #### [id number] ####[facility] ([facility])[address] [place], [place] [address]Ppqbmoii [Moles/Vol]111 mmol/PJppa59-931QddxtiysksAkron Children's HospitalComment on above:Performed By: #### [id number] ####[facility] ([facility])[address] [place], [place] [address]GC4 [Moles/Vol]14 mmol/LInvalid Interpretation Zmyu49-69UzzesmjzyfAkron Children's HospitalComment on above: Performed By: #### [id number] ####[facility] ([facility])[address] [place], [place] [address]Ixdpjvfzvu [Mass/Vol]1.31 mg/dLHigh0.60-1.20UnAkron Children's HospitalComment on above:Performed By: #### [id number] ####[facility] ([facility])[address] [place], [place] [address]SHVJTCIPEN FILTRATION RATE ML/MIN/1.73 SQ M.MSSKMCXUM52.4 mL/min/1.73m*2Low>60.0UnAkron Children's Hospital Comment on above:Result Comment: [facility]???s estimated glomerular filtration rate (eGFR) will no longer include consideration of race in its calculation. The National Kidney Foundation???s eGFR Task Force developed new recommendations for the estimation of the glomerular filtration ra te in the [place] They recommend immediate implementation of the new equation refit without the race variable in all laboratories because the calculation does not include race. In addition to not including race in the calculation and reporting, it included diversity in its development, and has acceptable performance characteristics and potential consequences that do not disproportionately affect anyone group of individuals.Performed By: #### [id number] ####[facility] ([facility])[address] [place], [place] [address]Zmyrztp [Mass/Vol]107 mg/tCNobh57-621GzuvrpdkunAkron Children's HospitalComment on above:Performed By: #### [id number] ####[facility] ([facility])[address] [place], [place] [address]Famsymygv [Moles/Vol]4.1 mmol/LNormal3.5-5.1UnAkron Children's HospitalComment on above:Performed By: #### [id number] ####[facility] ([facility])[address] [place], [place] [address]Vimgjzj [Mass/Vol]6.7 g/dLNormal 6.0-8.3UnAkron Children's HospitalComment on above:Performed By: #### [id number] ####[facility] ([facility])[address] [place], [place] [address]Hwneio [Moles/Vol]142 mmol/JWhhupa915-028HjnwpqphdcAkron Children's HospitalComment on above:Performed By: #### [id number] ####[facility] ([facility])[address] [place], [place] [address]Xwpv nitrogen [Mass/Vol]30 mg/dLHigh7-25UnAkron Children's HospitalComment on above:Performed By: #### [id number] ####[facility] ([facility])[address] [place], [place] [address]OUBS NITROGEN/CREATININE (MASS RATIO) IN SER/PLAS22.9NormalUniversMarietta Osteopathic ClinicComment on above: Performed By: #### [id number] ####[facility] ([facility])[address] [place] [address]QCRKITRLEkn 80-19-3494Ramcjzjga [Mass/Vol]2.3 mg/dLNormal1.9-2.7 [facility] HospitalComment on above:Performed By: #### [id number] #### [facility] ([facility]) [address] [place] [address]FHGH GLUCOSE METER UNSOLICITED RESULTSon 01-77-7112Aypejfz [Mass/Vol]114 mg/gJRnqw22-745VbqbvaaohcAkron Children's HospitalComment on above:Order Comment: Waived Testing in the ED is performed under the ED CLIA certificate #[id number].Result Comment: [email or web address] By: #### [id number] #### [facility] ([facility]) [address] [place] [address]Ezpgvzx [Mass/Vol]200 mg/dYEkir91-616LkwtueobstAkron Children's HospitalComment on above:Order Comment: Waived Testing in the ED is performed under the ED CLIA certificate #[id number].Result Comment: [email or web address] Performed By: #### [id number] #### [facility] ([facility]) [address] [place] [address]Pieltaw [Mass/Vol]81 mg/xUTezdcu34-955RxareawuawAkron Children's HospitalComment on above:Order Comment: Waived Testing in the ED is performed under the ED CLIA certificate #[id number].Result Comment: [email or web address] Performed By: #### [id number] #### [facility] ([facility]) [address] [place] [address]vb 80-05-804402Vmt patient is Moderately Stable - Low risk of patient condition declining or worsening The patient's goals for the shift include comfort, rest The clinical goals for the shift include stable vitals, safety Problem: Pain - Adult Goal: Verbalizes/displays adequate comfort level or baseline comfort level Outcome: Progressing Problem: Safety - Adult Goal: Free from fall injury Outcome: Progressing Problem: Discharge Planning Goal: Discharge to home or other facility with appropriate resources Outcome: Progressing Flowsheets (Taken 10/04/20251946) Discharge to home or other facility with appropriate resources: Identify barriers to discharge with patient and caregiver Problem: Chronic Conditions and Co-morbidities Goal: Patient's chronic conditions and co-morbidity symptoms are monitored and maintained or improved Outcome: Progressing Flowsheets (Taken 10/04/20251946) Care Plan - Patient's Chronic Conditions and Co-Morbidity Symptoms are Monitored and Maintained or Improved: Monitor and assess patient's chronic conditions and comorbid symptoms for stability, deterioration, or improvement Collaborate with multidisciplinary team to address chronic and comorbid conditions and prevent exacerbation or deteriorationNormalUniMedina HospitalHPon 10-80-4720ISNahxpbb Of Present Illness Yesy Rodriguez is a 85 y.o. female presenting for TAVR. She has severe symptomatic stage D3 aortic valve stenosis. She was evaluated by cardiothoracic surgery and interventional cardiology and was recommended TAVR. Prior medical history is significant for nonobstructive coronary artery disease, longstanding persistent atrial fibrillation, chronic diastolic heart failure, pulmonary hypertension, and stage IIIb chronic kidney disease. Past Medical History She has a past medical history of Abnormal ECG, Arrhythmia, Cancer ([facility]), CHF (congestive heart failure) ([facility]), Chronic diastolic heart failure ([facility]) (12/28/2021), Chronic kidney disease, Diabetes mellitus ([facility]), and Longstanding persistent atrial fibrillation ([facility]) (09/06/2022). Surgical History She has a past surgical history that includes Cardiac catheterization (01/20/2022). Social History She reports that she has quit smoking. Her smoking use included cigarettes. She has been exposed to tobacco smoke. She has never used smokeless tobacco. She reports current alcohol use. She reports that she does not use drugs. Allergies Patient has no known allergies. Medications Prescriptions Prior to Admission[1] Review of Systems Constitutional: Positive for malaise/fatigue. Cardiovascular: Positive for chest pain and dyspnea on exertion. Physical Exam Constitutional: Appearance: She is well-developed. She is not ill-appearing. Comments: Thin appearing HENT: Head: Normocephalic and atraumatic. Nose: Nose normal. Eyes: General: No scleral icterus. Pupils: Pupils are equal, round, and reactive to light. Neck: Thyroid: No thyromegaly. Vascular: No JVD. Cardiovascular: Rate and Rhythm: Normal rate. Rhythm irregularly irregular. Heart sounds: Murmur heard. Systolic (RUSB, [place]) murmur is present with a grade of [...] Behavior: Behavior is cooperative. Judgment: Judgment normal. Last Recorded Vitals Blood pressure 131/63, pulse 70, resp. rate 16, height 1.499 m (4' 11 ), weight 52.2 kg (115 lb), SpO2 100%. Relevant Results ECG 10/04/2025: Sinus rhythm with 1st degree A-V block Pulmonary disease pattern Left anterior fascicular block Abnormal ECG Cardiac catheterization 09/15/2025: Impression/Findings: Mild to moderate non-obstructive coronary artery disease. Mild elevation of left filling pressures. Mild elevation of right filling pressures. Moderate pulmonary hypertension. Reduced cardiac output and cardiac index. Controlled systemic hypertension. 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 ERIK 09/06/2025: Left Ventricle: The left ventricle is normal size. Global left ventricular systolic function is normal. The EF is 60 % visually. Left ventricular wall thickness is increased. Right Ventricle: The right ventricle is normal in size. Normal right ventricular systolic function. Left Atrium: The left atrium is severely enlarged. IAS: No intracardiac shunt by agitated saline injections. Mitral Valve: Moderate mitral regurgitation. Mild mitral valve stenosis. There is mild mitral annular calcification. Mitral Valve Measurements MV PGmean: 3.00 mmHg. Aortic Valve: Mild aortic valve regurgitation. Severe (low flow low gradient) aortic valve stenosis. Aortic Valve Measurements AV PGmean: 21.00 mmHg. WISAM D (continuity eq. VTI): 0.3 cm???. AV DVI: 0.22. LV stroke volume (LVOT) 23 ml. Tricuspid Valve: Mild tricuspid regurgitation. Aorta: Moderate atherosclerotic plaque is seen in the aorta. Assessment/Plan Principal Problem: Nonrheumatic aortic valve stenosis she was discussed at the multidisciplinary team meeting on 09/27/2025 with interventional cardiology and cardiothoracic surgery and deemed to be appropriate for TAVR and high risk candidate for SAVR. STS-PROM is 19.6% and risk of mortality/mobidity is 29.8%. Shared decision making was performed with her and she agreed to TAVR. she is brought today for the procedure. [1] Medications Prior to Admission Medication Sig Dispense Refill Last Dose/Taking amLODIPine (Norvasc) 5 mg tablet Take 1 tablet by mouth in the morning. 10/03/2025 anastrozole (Arimidex (more content not included)...[facility] HospitalNURSNOTEon 80-75-2752RJRKARKMVtbkiul and niece Lizabeth would like to have DNRCC-A no intubation paperwork signed tomorrow so niece could be present.NormalCleveland Clinic Marymount HospitalNURSNOTEHemostasis achieved right groinNormalUniversity of Memorial Hermann Memorial City Medical CenterNMEMORIAL MEDICAL CENTERNOTEThis RN in with lead nurse who is currently holding pressure to right groin site at this time. 1235 This RN called slab tripper to send fellow to come assess right groin. 1240 Bleeding has slowed at this time.[facility] NURSNOTEBedside report given to RENAE Overton from CARLOS MANUEL Rodas. slabbing machine operator RN presented site to bedside RN. Bedside RN visualized site and palpated site to ensure there was no hematoma or bruising, and femoral site appears flat. Both bedside RN and slab tripper RN mutually agreed that the site presents normal. slabbing machine operator RN and bedside RN either palpated or used a doppler to assess pulses on the patient.NormalCleveland Clinic Marymount HospitalNURSNOTEReport given to RENAE Overton from RENAE RodasC RN notified RN of pts procedural intervention site, allergies, IV location/status, and medications given during the procedure. Any diagnostics, abnormal labs, abnormal assessment findings, orders and safety concerns/issues were reviewed. RN encouraged RN receiving handoff to voice any questions or concerns, and answered any questions or concerns if verbalized. RN verbalizes the pt will be coming up to the floor soon.[facility] HospitalOPNOTEon [id number] Operative Note Date: 10/04/2025 Location: [facility] (Cath) Name: Yesy Rodriguez, : 1940, Diagnosis Pre-op Diagnosis * Nonrheumatic aortic valve stenosis [I35.0] Post-op Diagnosis * Nonrheumatic aortic valve stenosis [I35.0] Procedures * TAVR Surgeons Primary: Onel Wright MD Assisting: Ihsan Platt MD; Roshan Caruso MD Procedure Summary Anesthesia: Moderate Sedation ASA: ASA status not filed in the log. Estimated Blood Loss: 10 mL Drains: * None in log * Implants Type Name Action Serial No. Pacemaker ELECTRODE,PACING,TEMP,5F,110CM - [id number] Implanted Prosthetic Valve Perez Tony 3 ultra Implanted [id number] Staff: Service Desk Agent: Joann Redmond RN; Sindy Barton RN; Uriel Elizabeth RN Scrub Person: Lexy Abdalla RT Regional Office Coordinator: NANCY Alvarez Invasive Nurse: Viet Lawton RN INDICATION: Yesy Rodriguez is a 85 y.o. female with severe symptomatic stage D3 non-rheumatic aortic valve stenosis. she was evaluated in Cardiology and Cardiothoracic Surgery Clinics, and was deemed appropriate for TAVR as treatment for her aortic valve stenosis. she had shared decision making and agreed to the procedure. she is brought today for that purpose. PROCEDURES: Successful transcatheter aortic valve replacement using a 20 mm Perez TONY 3 Ultra RESILIA valve deployed at nominal volume via percutaneous transfemoral access. Aortic root angiography. Placement of a temporary pacemaker wire. Left heart catheterization. Access into the right internal jugular vein, right and left common femoral arteries under ultrasound guidance. Preclosure in the right common femoral artery using two 6-Kittitian ProGlide devices. Angio-Seal vascular closure in the left common femoral artery. OPERATORS: Interventional Cardiology Centerless Grinder Tender: Onel Wright MD Cardiac Surgery Centerless Grinder Tender: Ihsan Platt MD .Net Programmer Interventional Cardiology Centerless Grinder Tender: Roshan Caruso METHODS: Procedure was explained to the patient with risks and benefits. she signed informed consent. she was brought to slab tripper in a fasting state. The procedure was performed in the cardiac slab tripper under conscious sedation. Both groin areas, and the right neck area were prepped and draped in usual fashion. Ultrasound guidance was used for micropuncture access in the right internal jugular vein and a 6-Kittitian x 11 cm introducer sheath was secured in place. Micropuncture technique and ultrasound guidance were used for access in the right common femoral artery and inner cannula angiography was performed followed by upsizing to a 6-Kittitian x 11 cm sheath. The same was done for the access in the left common femoral artery. At this time, we proceeded with the preclosure in the right common femoral artery using 2 crossing Perclose devices and the access was then upsized over a wire to a 10-Kittitian sheath. A 5-Kittitian balloon-tipped pacemaker wire was advanced through the internal jugular vein sheath to the right ventricular apex and adequate capture was confirmed. Heparin was given intravenously and therapeutic ACT confirmed during the rest ofthe procedure and additional heparin given as needed. Through the left common femoral sheath, an angled 6-Kittitian pigtail catheter was then advanced to the ascending aorta and placed in the noncoronary cusp. Aortic root angiography was performed in the coplanar view as determined by prior CT scan measurements. The team over the wire this catheter was exchanged to a 6 Kittitian XB 3.0 guiding catheter which was used to engage the left main coronary ostium. A Prowater wire was advanced into the LAD. This was performed to protect the left main due to relatively low left coronary height. Yeah I was very good I was The right common femoral access was then upsized using an exchange length Lunderquist wire [which was placed through a multipurpose catheter] to the 14-Kittitian Perez E-sheath. The sheath was secured in place. A 6-Kittitian AL1 diagnostic catheter was advanced via the E-sheath, and using a straight stiff Glidewire, the aortic valve was crossed and the catheter was advanced in the left ventricular cavity, and using an exchange length J-wire, a 6-Kittitian angled pigtail catheter was advanced to make sure no entanglement under mitral valve apparatus. The pigtail catheter was then used to place an exchange length Amplatz Extra Stiff wire with a distal curve. Based on the prior CT scan measurements, we proceeded with a Perez TONY 3 Ultra RESILIA 20 mm valve. This was prepped using standard technique at nominal volume. The valve was then advanced over the wire and across the aortic valve. Aortic root angiography in the coplanar view was performed confirming adequate valve position. Under rapid pacing at 180 beats per minute, the valve was deployed. The balloon was deflated, and pacing was stopped. The delivery catheter was r (more content not included)...NormalUnAkron Children's HospitalPOCT GLUCOSE METER UNSOLICITED RESULTSon 90-82-2853Tpxfqbs [Mass/Vol]79 mg/dLNormal 70-105UnAkron Children's HospitalComment on above:Order Comment: Waived Testing in the ED is performed under the ED CLIA certificate #[id number].Result Comment: [email or web address] By: #### [id number] #### [facility] ([facility]) [address] [place], [place] [address]Pfbuyxe [Mass/Vol]88 mg/sTTbpsgn04-504CvnytxlcjhAkron Children's HospitalComment on above:Order Comment: Waived Testing in the ED is performed under the ED CLIA certificate #[id number].Result Comment: [email or web address] Performed By: #### [id number] ####[facility] ([facility])[address] [facility] [place] [place] [address]Vwbzqoy [Mass/Vol]85 mg/hCDhhqxw88-017TjmltbhjhaAkron Children's HospitalComment on above:Order Comment: Waived Testing in the ED is performed under the ED CLIA certificate #[id number].Result Comment: [id number] Performed By: #### [id number] #### [facility] ([facility]) [address] [place], [place] [address]THXO AND SCREENon 58-94-2394KS SCREENNegativeNormalUniversMarietta Osteopathic ClinicComment on above:Performed By: #### [id number] #### [facility] ,ABO group Nom (Bld)ONormalUnAkron Children's HospitalComment on above: Performed By: #### [id number] #### [facility] ,RH TYPE IN BLOODPositiveNormalUniversity Coshocton Regional Medical CenterComment on above:Performed By: #### [id number] #### [facility] ,Erroneous Telephone Encounteron 84-42-3044Ailfgrqwl Telephone [id number] Yesy Rodriguez 1940 F Date Provider Department Center 10/03/2025 [id number] ALDRIDGE HVC VASC LAB [place] HeartVAS Family History Problem Relation Age of Onset Heart attack Mother Heart attack Brother Family Status - Relation Status Age at Mother Father Brother Reason for Visit and Comments: Error (VOID this visit) [77]NormalCleveland Clinic Marymount HospitalOrders Only on 79-31-8266Moheib [id number] Yesy Rodriguez 1940 F Date Provider Department Center 09/24/2025 CORWIN MACHADO HV CARD [place] HeartVAS Family History Problem Relation Age of Onset Heart attack Mother Heart attack Brother Family Status - Relation Status Age at Mother Father BrotherNoalUUniversity Hospitals Health SystemOrders Onlyon 14-30-9697Wlpzxl [id number] Yesy Rodriguez 1940 Date Provider Department Center 09/23/2025 CORWIN MACHADO HVC CARD [place] HeartVAS Family History Problem Relation Age of Onset Heart attack Mother Heart attack Brother Family Status - Relation Status Age at Mother Father BrotherNoMorrow County HospitalConsulton 61-56-1398Ffoucqo [id number] Yesy Rodriguez 1940 Provider Department Center 09/21/2025 JUVE LUCERO HVCTS [place] HeartVAS Family History Problem Relation Age of Onset Heart attack Mother Heart attack Brother Family Status - Relation Status Age at Mother Father Brother Level of Service:53390 [place] OFFICE/OUTPATIENT ESTABLISHED MOD MDM 30 MIN Reason for Visit and Comments: Consult [484] - TAVR evalNormalUniMedina HospitalCTA ABDOMEN PELVIS W IV CONTRASTon 72-84-6680IRT ABDOMEN PELVIS W IV CONTRASTCTA ABDOMEN PELVIS W IV CONTRAST 09/19/2025 11:11 AM CLINICAL INDICATIONS: Peptic stenosis. Pre-T aVR evaluation PROTOCOL: Abdomen and pelvis CTA CONTRAST: 75 mL Omnipaque 350 TECHNIQUE: Multidetector CT angiography axial slices of the abdomen and pelvis were obtained with IV contrast. Multiplanar reformats, MIP, and volume rendered 3-D images were generated on a separate workstation and reviewed to further define anatomy and possible pathology. All CT scans at this facility use dose modulation, iterative reconstruction, and/or weight based dosing when appropriate to reduce radiation dose to as low as reasonably achievable. COMPARISON: None. FINDINGS: Lower Chest: Please refer to chest CT report from the same day for full details. ABDOMEN: Liver: Within normal limits. Bile Ducts: Normal caliber. Gallbladder: No calcified gallstones. Normal caliber wall. Pancreas: Within normal limits. Spleen: Within normal limits. Adrenals: Within normal limits. Kidneys: Within normal limits. Pelvis: Reproductive Organs: Absent uterus likely from prior hysterectomy. Ureters: Within normal limits. Bladder: Within normal limits. Bowel: Normal caliber. Mesenteric Lymph Nodes: No enlarged mesenteric lymph nodes. Peritoneum: No ascites or free air, no fluid collection. Vessels: Atherosclerotic changes with moderate vascular calcification. Retroperitoneum: Within normal limits. Abdominal Wall: Within normal limits. Bones: Lumbar spondylosis with bony spurring and bilateral mild degenerative sacroiliitis. Mild S-shaped thoracolumbar scoliosis. IMPRESSION: Evidence of prior hysterectomy. S-shaped thoracolumbar scoliosis and spondylotic changes. Vascular calcification. Otherwise, no evidence of acute pathology in the abdomen or pelvis Electronically signed: Lala Marcus MD. 9Invalid Interpretation [facility] [place] CityUnAkron Children's HospitalComment on above: Order Comment: Waived Testing in the ED is performed under the ED CLIA certificate #[id number].[facility] [id number] Of Present Illness Yesy Rodriguez is a 85 y.o. female presenting with severe Aortic stenosis , she also has histroty of CAD, the patient presents today for RHC and coronary angiograpgy. Past Medical History Medical History[1] Surgical History Surgical History[2] Social History Social History Socioeconomic History Marital status: Spouse name: Not on file Number of children: Not on file Years of education: Not on file Highest education level: Not on file Occupational History Not on file Tobacco Use Smoking status: Former Types: Cigarettes Passive exposure: Past Smokeless tobacco: Never Substance and Sexual Activity Alcohol use: Yes Comment: occasional social Drug use: Never Sexual activity: Defer Other Topics Concern Not on file Social History Narrative Not on file Social Drivers of Health Financial Resource Strain: Not on file Food Insecurity: Not on file Transportation Needs: Not on file Physical Activity: Not on file Stress: Not on file Social Connections: Not on file Intimate Partner Violence: Unknown (01/22/2024) [place] Safety & Environment Fear of Current or Ex-Partner: Not on file Emotionally Abused: Not on file Physically Abused: Not on file Sexually Abused: Not on file Physically or Sexually Abused: Not on file Housing Stability: Not on file Family History Family History[3] Allergies Allergies[4] Medications Prescriptions Prior to Admission[5] Review of Systems All other systems reviewed and are negative. Last Recorded Vitals Visit Vitals BP 137/78 Pulse 61 Resp 15 SpO2 100% OB Status Postmenopausal Smoking Status Former Physical Exam Vitals reviewed. HENT: Head: Normocephalic. Nose: Nose normal. Mouth/Throat: Mouth: Mucous membranes are moist. Pharynx: Oropharynx is clear. No oropharyngeal exudate. Eyes: Extraocular Movements: Extraocular movements intact. Pupils: Pupils are equal, round, and reactive to light. Cardiovascular: Rate and Rhythm: Normal rate and regular rhythm. Pulses: Normal pulses. Heart sounds: No murmur heard. Pulmonary: Effort: Pulmonary effort is normal. No respiratory distress. Breath sounds: No wheezing. Abdominal: General: Abdomen is flat. There is no distension. Palpations: Abdomen is soft. Musculoskeletal: General: No swelling or tenderness. Normal range of motion. Cervical back: Normal range of motion. No rigidity. Skin: General: Skin is warm and dry. Capillary Refill: Capillary refill takes less than 2 seconds. Coloration: Skin is not jaundiced or pale. Neurological: General: No focal deficit present. Mental Status: She is alert and oriented to person, place, and time. Psychiatric: Mood and Affect: Mood normal. Behavior: Behavior normal. Relevant Lab Results Lab Results Component Value Date CO2 26 01/16/2022 BUN 48 (H) 01/16/2022 CALCIUM 9.2 01/16/2022 EGFR 50 (A) 01/17/2022 EGFR >60 01/17/2022 Relevant Imaging Results ECG 12 lead Atrial flutter with variable A-V block Left axis deviation Abnormal ECG When compared with ECG of 06-SEP-2025 08:39, Atrial flutter has replaced Atrial fibrillation Assessment: -HFpEF -Severe aortic stenosis Plan: -RHC and CORs [1] Past Medical History: Diagnosis Date Abnormal ECG Arrhythmia Cancer (CMS/HCC) CHF (congestive heart failure) (CMS/HCC) Chronic diastolic heart failure (CMS/HCC) 12/28/2021 Longstanding persistent atrial fibrillation (CMS/HCC) 09/06/2022 [2] Past Surgical History: Procedure Laterality Date CARDIAC CATHETERIZATION 01/20/2022 [3] Family History Problem Relation Name Age of Onset Heart attack Mother Heart attack Brother [4] No Known Allergies [5] Medications Prior to Admission Medication Sig Dispense Refill Last Dose/Taking amLODIPine (Norvasc) 5 mg tablet Take 1 tablet by mouth in the morning. 09/15/2025 anastrozole (Arimidex) 1 mg chemo tablet Take 1 tablet every day by oral route for 90 days. 09/15/2025 apixaban (Eliquis) 2.5 mg tablet Take 1 tablet (2.5 mg) by mouth two times daily. 180 tablet 3 Past Week atorvastatin (Lipitor) 10 mg tablet Take 1 tablet every day by oral route for 90 days. 09/15/2025 benazepril (Lotensin) 10 mg tablet Take 1 tablet by mouth in the morning. 09/15/2025 cholecalciferol, vitamin D3, 10 mcg (400 unit) capsule Take by mouth in the morning. 09/14/2025 docusate sodium (Colace) 100 mg capsule 1 capsule in the morning. 09/14/2025 furosemide (Lasix) 40 mg tablet Take 40 mg by mouth in the morning. Taking 40mg in the AM, and 20mg in the PM 09/14/2025 Jardiance 10 mg TAKE 1 TABLET EVERY MORNING 90 tablet 3 09/15/2025 latanoprost (Xalatan) 0.005 % ophthalmic solution 09/15/2025 metoprolol succinate XL (Toprol-XL) 200 mg 24 hr tablet Take 1 tablet every day by oral route for 90 days. 09/15/2025 ranolazine (Ranexa) 500 mg 12 hr tablet Take 1 tablet (500 mg) by mouth two razia (more content not included)...[facility] NURSNOTEon 50-39-3149IKWEZBYKLM educated pt on d/c instructions. This included: site care, limited physical activity, resume normal diet, future appointments, medications, and moderate sedation instructions. RN educated pt on when to notify physician and when to go to the hospital. RN provided pt with arm sling and educated pt on importance of not using arm for 24 hours for radial sites. RN encouraged pt to voice any questions or concerns, and answered any questions or concerns if pt verbalized. Pt was wheeled off of unit with all of belongings.[facility] HospitalANESon 81-86-5978ZIMPMqujzsg: Yesy Rodriguez Choose an anesthesia record to view details Clinical information reviewed: Allergies Meds OB Status Physical Exam Airway Mallampati: II Neck ROM: full Cardiovascular Rhythm: regular Dental Pulmonary Breath sounds clear to auscultation Neurological Abdominal Abdomen: soft Bowel sounds: normal Anesthesia Plan ASA 3 CSE The patient is not a current smoker. Anesthetic plan and risks discussed with patient. Additional Equipment RequestsNormalUniversity of Cleveland Emergency Hospitalon 19-99-7144DEM&P reviewed. The patient was examined and there are no changes to the H&P.[facility] HospitalNURSNOTEon 60-84-8555XOOTRJOZ Bedside swallow study completed and passed. RN educated pt on [...] wheeled off of unit with all of belongings.[facility] Hospitalon 03-48-2789BNFK Cardiology - [facility] Subjective Yesy Rodriguez is a 85 y.o. year old female patient being seen for 3 mo follow up with ECHO. Patient states she has been feeling off and on. Patient states she has been to the [facility] ER quite a bit with chest pain. [...] is an 81-year-old woman who moved from [place] in May 2021. She is known to [...] then discharged. She was evaluated at the [facility] cardiology service and she was planned [...] patent with antegrade f (more content not included)...NormalCleveland Clinic Marymount HospitalOffice Visiton 59-56-6541Ozxteq-up [id number] MichaelYesySerena 1940 F Date Provider Department Center 08/22/2025 [facility] Patrice [facility] Family History Problem Relation Age of Onset Heart attack Mother Heart attack Brother Family Status - Relation Status Age at Mother Father Brother Level of Service:93495 [place] OFFICE/OUTPATIENT ESTABLISHED HIGH MDM 40 [facility] HealthcareOrders Onlyon 44-62-1125Qfihoo [id number] MichaelYesySerena 1940 F Date Provider Department Center 08/22/2025 144-CORWIN MONTIEL [facility] CARD [place] HeartVAS Family History Problem Relation Age of Onset Heart attack Mother Heart attack Brother Family Status - Relation Status Age at Mother Father BrotherNormCleveland Clinic Union HospitalniMedina Hospital36on 79-55-193539Alspz call and stated the ER gave Yesy Castorenaexdevika for angina pain per niece she is out of them, would you like these refilled? She was only given 20 1 in the am 1 in pm. Yesy has a follow up appointment with you on 08/22/2025. Please advise.[facility] HospitalLaboratory - Hematology and Cell countson 62-71-0187RvK9o (Bld) [Mass fraction]6.5 %NOMS HealthcareNo Panel Informationon 84-12-0011ZLOE HealthcareOrders Onlyon 63-56-1309Alrftd Only [id number] Yesy Rodriguez 1940 F Date Provider Department Center 08/02/2025 [id number], [facility] CARD [facility] Family History Problem Relation Age of Onset Heart attack Mother Heart attack Brother Family Status - Relation Status Age at Mother Father BrotherNormHarrison Community Hospital36on [id number] call from patients janusz Barone. Per Lizabeth patient had chest pain [...] verbalized understanding and agreed with plan of care.[facility]36on 18-58-431870Pfjvbuv nitaisha would like you to stop Yesy's driving [...] I see her next. Advised niece Lizabeth bell.[facility] HospitalTelephoneon [id number] Yesy Rodriguez 1940 F Date Provider Department Center 05/17/2025 [id number] LARA BH CARD [facility] Family History Problem Relation Age of Onset Heart attack Mother Heart attack Brother Family Status - Relation Status Age at Mother Father BrotherNormalUniMedina HospitalOffice Visiton 07-26-8135Xrrmft- up [id number] Yesy Rodriguez 1940 F Date Provider Department Center 05/16/2025 Ruthy-ONEL WRIGHT BH CARD [facility] Family History Problem Relation Age of Onset Heart attack Mother Heart attack Brother Family Status - Relation Status Age at Mother Father Brother Level of Service:61630 [place] OFFICE/OUTPATIENT ESTABLISHED MOD MDM 30 [facility] HealthcareOrders Onlyon 33-62-8067Jvwtns [id number] Yesy Rodriguez 1940 F Date Provider Department Center 05/13/2025 [id number], HISTORICAL BH CARD [facility] Family History Problem Relation Age of Onset Heart attack Mother Heart attack Brother Family Status - Relation Status Age at Mother BrotherNormalUnimemorial hermann [facility] Medical CenterOrders Onlyon 74-69-9190Oqdrvk [id number] Yesy Rodriguez 1940 F Date Provider Department Center 05/04/2025 [id number], HISTORICAL BH CARD [facility] Family History Problem Relation Age of Onset Heart attack Mother Heart attack Brother Family Status - Relation Status Age at Mother BrotherNormalUnimemorial hermann [facility] Medical CenterOrders Onlyon 87-66-6738Kxrzuc [id number] Yesy Rodriguez 1940 F Date Provider Department Center 05/03/2025 [id number], HISTORICAL BH CARD [facility] Family History Problem Relation Age of Onset Heart attack Mother Heart attack Brother Family Status - Relation Status Age at Mother BrotherNormalUniversity Coshocton Regional Medical CenterErythrocyte distribution width Auto (RBC) [Ratio]on 80-23-9502Ehkpeuhthcl distribution width (RBC) [Ratio] Erythrocyte distribution width [Ratio] by Automated count11.0-15.0[facility] HospitalEstimated glomerular filtration rate (GFR) non- Americanon 80-82-7810KUD/1.73 sq M.predicted among non-blacks MDRD (S/P/Bld) [Vol rate/Area]Estimated glomerular filtration rate (GFR) non- Low>=60 mL/min/1.73m 2FSt. John of God HospitalHematocrit Auto (Bld) [Volume fraction]on 73-34-7832Aennvvqvqh (Bld) [Volume fraction]Hematocrit [Volume Fraction] of Blood by Automated count36.0-48.0[facility] HospitalHemoglobin [Mass/volume] in Bloodon 28-76-0666Avcfhmrlvs (Bld) [Mass/Vol] Hemoglobin [Mass/volume] in Blood12.0-16.0[facility] Laboratory - Chemistry and Chemistry - challengeon 88-77-9903Hxmccbl [Mass/Vol] 4.1 g/dL3.4-5.0[facility] HospitalCalcium [Mass/Vol]9.1 mg/dL 8.5-10.1FSt. John of God HospitalChloride [Moles/Vol]104 mmol/L98-107 [facility] HospitalCO2 [Moles/Vol]29.5 mmol/L21.0-32.0[facility] HospitalCreatinine [Mass/Vol]1.45 mg/dLHigh0.55-1.02Kn[facility] HospitalGFR/1.73 sq M.predicted MDRD (S/P/Bld) [Vol rate/Area]41 mL/min/{1.73_m2}Low>=60 mL/min/1.73m 2FSt. John of God HospitalGlucose [Mass/Vol]223 mg/xKAwrw60-929SgxzqaqprKnox Community HospitalMagnesium [Mass/Vol]2.4 mg/dL1.8-2.4FSt. John of God HospitalPotassium [Moles/Vol] 4.1 mmol/L3.5-5.1FCincinnati Shriners Hospitalodium [Moles/Vol]144 mmol/L 136-145Kn[facility] Community HospitalUrate [Mass/Vol]7.7 mg/dLHigh2.6-6.0 [facility] HospitalUrea nitrogen [Mass/Vol]37.0 mg/dLHigh7.0-18.0 [facility] HospitalUrea nitrogen/Creatinine [Mass ratio]25.5 mg/mg [facility] HospitalLaboratory - Urinalysison 48-88-0318Kafdjxl (U) [Mass/Vol]17.0 mg/dLHigh<=11.9[facility] HospitalLeukocytes [#/volume] corrected for nucleated erythrocytes in Blood by Automated counon 58-41-4890DFG corrected for nucl RBC Auto (Bld) [#/Vol]Leukocytes [#/volume] corrected for nucleated erythrocytes in Blood by Automated coun4.0-11.0[facility] HospitalMCH Auto (RBC) [Entitic mass]on 86-63-3220MLJ (RBC) [Entitic mass]MCH [Entitic mass] by Automated count26.7-34.0[facility] HospitalMCHC Auto (RBC) [Mass/Vol]on 98-56-2825GMOA (RBC) [Mass/Vol]MCHC [Mass/volume] by Automated count29.9-35.2FSt. John of God HospitalMCV Auto (RBC) [Entitic vol]on 90-70-3009RWR (RBC) [Entitic vol]MCV [Entitic volume] by Automated count81.0-99.0[facility] HospitalMicroalbumin [Mass/volume] in Urineon 41-59-4017Bybttey DL <= 20 mg/L (U) [Mass/Vol] Microalbumin [Mass/volume] in Urine<=30.0[facility] HospitalNo Panel Informationon [id number]-Ulzxyqz Vitamin D Total50.9 ng/mLKnox Community HospitalComment on above:<20 ng/mL Vit D nysnyarzm15-<30 ng/mL Vit D tjwuabfislmm81-745 ng/mL Vit D sufficient>100 ng/mL Potential Toxicity Phosphorus Level3.5 mg/dL2.6-4.7FSt. John of God HospitalUrine Random Fmakkmhzmn85.08 mg/dL20.00-300.00Kn[facility] HospitalPlatelet mean volume Auto (Bld) [Entitic vol]on 92-01-8498Cwbvljau mean volume (Bld) [Entitic vol]Platelet mean volume [Entitic volume] in Blood by Automated count9.5-13.5 [facility] HospitalPlatelets Auto (Bld) [#/Vol]on 05-02-2025 Platelets (Bld) [#/Vol]Platelets [#/volume] in Blood by Automated -106 [facility] HospitalRBC Auto (Bld) [#/Vol]on 81-67-5675RKR (Bld) [#/Vol]Erythrocytes [#/volume] in Blood by Automated count4.20-5.40UC Medical Centererum or plasma anion gap determinationon 93-10-3526Jexdi gap [Moles/Vol]Serum or plasma anion gap determinationKnox Community HospitalUrine microalbumin/creatinine mass ratioon 05-02-2025 Albumin/Creatinine DL <= 20 mg/L (U) [Mass ratio]Urine microalbumin/creatinine mass ratioHigh0.0-29.9[facility] HospitalComment on above:NO MICROALBUMINURIA 0-29 MG/GCLINICAL MICROALBUMINURIA 30-300 MG/GMACROALBUMINURIA >300 MG/GUrine protein/creatinine ratioon 32-30-9693Iimbpmb/Creatinine (U) [Ratio]Urine protein/creatinine ratioKnox Community HospitalCA 125on 24-04-1910Iuryok Ag 125 Qn8 [arb'U]/mL0 - 38 U/mLBon [facility] CenterComselect specialty hospital-[facility] on above:The Jorje ECLIA assay is used. Results obtained with different assay methods cannot be used interchangeably. Bon [facility] 1258 U/mLNormal0-38[facility] on above:Result Comment: The Jorje ECLIA assay is used. Results obtained with different assay methods cannot be used interchangeably.Performed By: #### [id number] #### [employer] [facility] [id number] Licensed Nuclear Control Room Operator: Andrew Blakely MDNo Panel Informationon 69-12-4305RwdtlRochelle Mclain NP 01/17/2025 8:11 PM L Inj/Asp: L subacromial bursa on 01/17/2025 8:10 PM Indications: pain Details: 20 G needle, posterior approach Medications: 40 mg methylPREDNISolone acetate 40 MG/ML Outcome: tolerated well, no immediate complications Site cleaned with isopropyl alcohol Procedure, treatment alternatives, risks and benefits explained, specific risks discussed. Consent was given by the patient. [facility] HealthcareOffice Visiton 91-43-1607Ddwtql-up [id number] Yesy Rodriguez 1940 F Date Provider Department Center 11/10/2024 DHEERAJ CARNEY [facility] Family History Problem Relation Age of Onset Heart attack Mother Heart attack Brother Family Status - Relation Status Age at Mother Brother Level of Service:72771 [place] OFFICE/OUTPATIENT ESTABLISHED LOW MDM 20 MIN Reason for Visit and Comments: Valve Disorder [3372] Coronary Artery Disease [187] Atrial Fibrillation [80]NormalCleveland Clinic Marymount HospitalCA 125on 91-77-1946LF 1258 U/mLNormal0-38[facility] HospitalComment on above:Result Comment: The Jorje ECLIA assay is used. Results obtained with different assay methods cannot be used interchangeably.Performed By: #### CA125 #### [employer] [address] [place] [address] Licensed Nuclear Control Room Operator: MANUEL Araiza CHEM 8 (BAS METB)on 05-08-7731Uhmva gap [Moles/Vol]13.7 mmol/LNormalSelect Medical Ohiohealth Rehabilitation Hospital - DublinComment on above:Performed By: #### CMP, URIC #### [facility] [address] [address] [address] Hussein CamachoCalcium [Mass/Vol]9.7 mg/dLNormal8.5-10.1[facility] Comment on above:Performed By: #### CMP, URIC #### [facility] [address] [address] [address] Hussein CamachoChloride [Moles/Vol]100 mmol/KZtpxcm00-270Qtb [facility] Comment on above:Performed By: #### CMP, URIC #### [facility] [address] [place] [address] Dr. Hussein CamachoCO2 [Moles/Vol]29.9 mmol/HTdrado15.0-32.0The [facility] Comment on above:Performed By: #### CMP, URIC #### [facility] [address] [place] [address] Dr. Hussein CamachoCreatinine [Mass/Vol]1.87 mg/dLCritically high0.55-1.02The [facility] HospitalComment on above:Performed By: #### CMP, URIC #### [facility] [address] [place] [address] Dr. Hussein LittleGFR-AF ABAESJCI24 mL/min/1.09c6Wbgvwkkjus low>=60The [facility] HospitalComment on above:Performed By: #### CMP, URIC #### [facility] [address] [place] [address] Dr. Hussein Montilla-NON AF JWMMWERH44 mL/min/1.23o3Chgohfgiur low>=60The [facility] HospitalComment on above:Performed By: #### CMP, URIC #### [facility] [facility] [address] [place] [address] Dr. Hussein CamachoGlucose [Mass/Vol]146 mg/dLCritically zbnv32-793Dqz [facility] HospitalComment on above:Performed By: #### CMP, URIC #### [facility] [address] [place] [address] Dr. Hussein CamachoPotassium [Moles/Vol]4.6 mmol/LNormal3.5-5.1The [facility] Comment on above:Performed By: #### CMP, URIC #### [facility] [address] [place] [address] Dr. Hussein CamachoSodium [Moles/Vol]139 mmol/UBzueum578-976TgvSelect Medical [facility] Comment on above:Performed By: #### CMP, URIC #### [facility] [address] [place] [address] Dr. Hussein CamachoUrea nitrogen [Mass/Vol]67.0 mg/dLCritically high7.0-18.0The [facility] Hospitalment on above:Performed By: #### CMP, URIC #### [facility] [address] [place] [address] Dr. Hussein Zarate nitrogen/Creatinine [Mass ratio]35.8 mg/mgNoWayne HospitalComment on above:Performed By: #### CMP, URIC #### [facility] [address] [address] [address] Hussein Tatum TRANG DOP LEG BILon [id number] TRANG DOP LEG BILEXAM: US TRANG DOP LEG GIRMA HISTORY: Disorder [...] Electronically authenticated by: ELA GASPAR Date: 2023-03-17 17:00[facility] HospitalBNPon [id number] peptide B (Bld) [Mass/Vol]3283.0 pg/mLCritically high<=1,800.0The [facility] Hospitalment on above:Performed By: #### CMP, URIC #### [facility] [address] [place] [address] Dr. Hussein Martinez-DIMERon 22-58-3971N-DIMER1.34 mg/L FEUCritically high<=0.59The [facility] on above:Performed By: #### CMP, URIC #### [facility] [address] [place] [address] Dr. Hussein NicoleDIMER COMMENTSSEE BELOWOhio State Harding Hospital on above:Result Comment: Increases in D-Dimer concentration observed with thromboembolic events [...] thrombolytic or anticoagulant therapy, stress, and generalized hospitalization.Performed By: #### CMP, URIC #### [facility] [address] [place] [address] Dr. Hussein HendricksF CHEM 8 (BAS METB)on [id number] gap [Moles/Vol]12.4 mmol/LNormalThe [facility] HospitalComment on above:Performed By: #### CMP, URIC #### [facility] [address] [place] [address] Dr. Hussein CamachoCalcium [Mass/Vol]9.6 mg/dLNormal8.5-10.1The [facility] Comment on above:Performed By: #### CMP, URIC #### [facility] [address] [place] [address] Dr. Hussein CamachoChloride [Moles/Vol]104 mmol/OZvrafv34-123Ztc [facility] Comment on above:Performed By: #### CMP, URIC #### [facility] [address] [place] [address] Dr. Hussein CamachoCO2 [Moles/Vol]29.6 mmol/PGggfkq67.0-32.0The [facility] Comment on above:Performed By: #### CMP, URIC #### [facility] [address] [place] [address] Dr. Hussein CamachoCreatinine [Mass/Vol]1.55 mg/dLCritically high0.55-1.02The [facility] HospitalComment on above:Performed By: #### CMP, URIC #### [facility] [address] [place] [address] Dr. Hussein LittleGFR-AF GXXPALKV34 mL/min/1.08e6Mecwdllejl low>=60The [facility] HospitalComment on above:Performed By: #### CMP, URIC #### [facility] [address] [place] [address] Dr. Hussein LittleGFR-NON AF RBQRPQKH67 mL/min/1.50q4Ytwuxyozjq low>=60The [facility] HospitalComment on above:Performed By: #### CMP, URIC #### [facility] [address] [address] [address] Hussein CamachoGlucose [Mass/Vol]128 mg/dLCritically mmcf16-617Ilm [facility] HospitalComment on above:Performed By: #### CMP, URIC #### [facility] [address] [address] [address] Hussein CamachoPotassium [Moles/Vol]3.9 mmol/LNormal3.5-5.1[facility] Comment on above:Performed By: #### CMP, URIC #### [facility] [address] [address] [address] Hussein CamachoSodium [Moles/Vol]142 mmol/OYvxibq541-019Ilx [facility] Comment on above:Performed By: #### CMP, URIC #### [facility] [address] [address] [address] Hussein CamachoUrea nitrogen [Mass/Vol]49.0 mg/dLCritically high7.0-18.0The [facility] HospitalComment on above:Performed By: #### CMP, URIC #### [facility] [address] [address] [address] Hussein Zarate nitrogen/Creatinine [Mass ratio]31.6 mg/mgNormalThe [facility] HospitalComment on above:Performed By: #### CMP, URIC #### [facility] [address] [address] [address] Hussein Gallo M/2D COMPLETEon [id number] M/2D COMPLETE Patient Name Site Name YESY RODRIGUEZ [facility] Account No Medical Record Number Age Sex Date Time [id number] [facility]:[id number] F 03/10/2025 14:44 At the Request [...] Area (VTI): 0.61 cm2, 0.62 cm2 Deceleration Moca: 1.84 m/s2 Pressure Half-Time: 571.86 ms Peak [...] by: Onel Wright M.D. on 03/10/2023 at 17:00[facility] HospitalGLYCOHEMOGLOBIN A1Con [id number] RECOMMENDATIONSEE BELOWPaulding County HospitalComment on above:Result Comment: ADA RECOMMENDED LIMIT 4.0 - 6.0 ADA THERAPEUTIC TARGET < 7.0 ACTION SUGGESTED > 7.0Performed By: #### A1C #### [facility] [address] [place] [address] Dr. Hussein CamachoGlucose [Mass/Vol]154 mg/dLPaulding County HospitalComment on above:Performed By: #### A1C #### [facility] [address] [address] [address] Hussein CamachoHbA1c (Bld) [Mass fraction]7.0 %Critically high4.5-6.2The [facility] HospitalComment on above:Performed By: #### A1C #### [facility] [address] [address] [address] Hussein CamachoPROF CHEM 8 (BAS METB)on [id number] gap [Moles/Vol]8.3 mmol/LNormalThe [facility] HospitalComment on above:Performed By: #### CMP, URIC #### [facility] [address] [address] [address] Hussein CamachoCalcium [Mass/Vol]9.1 mg/dLNormal8.5-10.1The [facility] Comment on above:Performed By: #### CMP, URIC #### [facility] [address] [address] [address] Hussein CamachoChloride [Moles/Vol]106 mmol/VUsssga82-768Kuj [facility] Comment on above:Performed By: #### CMP, URIC #### [facility] [address] [address] [address] Hussein CamachoCO2 [Moles/Vol]28.2 mmol/IBxqcsj63.0-32.0The [facility] Comment on above:Performed By: #### CMP, URIC #### [facility] [address] [address] [address] Hussein CamachoCreatinine [Mass/Vol]1.04 mg/dLCritically high0.55-1.02The [facility] HospitalComment on above:Performed By: #### CMP, URIC #### [facility] [address] [place] [address] Dr. Savage ChangEGFR-AF AUSTRIAN>60Normal>=60The [facility] HospitalComment on above:Performed By: #### CMP, URIC #### [facility] [address] [address] [address] Hussein LittleGFR-NON AF ETHXLWJA22 mL/min/1.68n5Zphlitxdfc low>=60The [facility] HospitalComment on above:Performed By: #### CMP, URIC #### [facility] [address] [address] [address] Hussein CamachoGlucose [Mass/Vol]122 mg/dLCritically hweg06-308Kqi [facility] HospitalComment on above:Performed By: #### CMP, URIC #### [facility] [address] [address] [address] Hussein CamachoPotassium [Moles/Vol]4.5 mmol/LNormal3.5-5.1[facility] Comment on above:Performed By: #### CMP, URIC #### [facility] [address] [address] [address] Hussein CamachoSodium [Moles/Vol]138 mmol/KBtbryf784-175OzrSelect Medical [facility] Comment on above:Performed By: #### CMP, URIC #### [facility] [address] [address] [address] Hussein CamachoUrea nitrogen [Mass/Vol]33.0 mg/dLCritically high7.0-18.0The [facility] HospitalComment on above:Performed By: #### CMP, URIC #### [facility] [address] [place] [address] Dr. Hussein Zarate nitrogen/Creatinine [Mass ratio]31.7 mg/mgNormalThe [facility] HospitalComment on above:Performed By: #### CMP, URIC #### [facility] [address] [place] [address] Dr. Hussein CamachoCA 125on [id number] Ag 125 Qn9 [arb'U]/mLNINF - 38 U/mLBON [facility] Systemment on above:The Jorje ECLIA assay is used. Results obtained with different assay methods cannot be used interchangeable. [facility] HEAD WO CONon [id number] HEAD WO CONEXAMINATION: CT HEAD WO CON HISTORY: UNSPECIFIED INJURY [...] Electronically authenticated by: KEE MEYER Date: 2023-01-13 13:33[facility] HospitalPROF 14(COMP METB)on [id number] [Mass/Vol]4.3 g/dLNormal 3.4-5.0The [facility] HospitalComment on above:Performed By: #### CMP #### [facility] [address] [place] [address] Dr. Hussein CamachoAlbumin/Globulin [Mass ratio]1.2 {ratio}NormalThe [facility] HospitalComment on above:Performed By: #### CMP #### [facility] [address] [place] [address] Dr. Hussein Olson [Catalytic activity/Vol]96 U/FZfhblp05-111Jjs [facility] HospitalComment on above:Performed By: #### CMP #### [facility] [address] [place] [address] Dr. Hussein Salinas [Catalytic activity/Vol]43 U/KSoobap26-24Qoe [facility] HospitalComment on above:Performed By: #### CMP #### [facility] [address] [place] [address] Dr. Hussein Lovell gap [Moles/Vol]13.2 mmol/LNormalThe [facility] Comment on above:Performed By: #### CMP #### [facility] [address] [place] [address] Dr. Yilan ChangAST [Catalytic activity/Vol]30 U/TWgrujf01-23Hrc [facility] HospitalComment on above:Performed By: #### CMP #### [facility] [address] [place] [address] Dr. Hussein CamachoBilirubin [Mass/Vol]0.7 mg/dLNormal0.2-1.0[facility] Comment on above:Performed By: #### CMP #### [facility] [address] [place] [address] Dr. Hussein CamachoCalcium [Mass/Vol]9.7 mg/dLNormal8.5-10.1The [facility] Comment on above:Performed By: #### CMP #### [facility] [address] [place] [address] Dr. Hussein CamachoChloride [Moles/Vol]105 mmol/AKiraqo19-587Shc [facility] Comment on above:Performed By: #### CMP #### [facility] [address] [place] [address] Dr. Hussein CamachoCO2 [Moles/Vol]28.5 mmol/MTsckau44.0-32.0The [facility] Comment on above:Performed By: #### CMP #### [facility] [address] [place] [address] Dr. Hussein CamachoCreatinine [Mass/Vol]1.48 mg/dLCritically high0.55-1.02The [facility] HospitalComment on above:Performed By: #### CMP #### [facility] [address] [place] [address] Dr. Hussein LittleGFR-AF SQMNZHWE78 mL/min/1.50k3Kyqitzkfym low>=60The [facility] HospitalComment on above:Performed By: #### CMP #### [facility] [address] [place] [address] Dr. Hussein LittleGFR-NON AF VMEOLCGP90 mL/min/1.60p9Geurbwadgg low>=60The [facility] HospitalComment on above:Performed By: #### CMP #### [facility] [address] [place] [address] Dr. Hussein CamachoGlobulin (S) [Mass/Vol]3.6 g/dLNormOhioHealth Riverside Methodist HospitalComment on above:Performed By: #### CMP #### [facility] [address] [place] [address] Dr. Hussein CamachoGlucose [Mass/Vol]140 mg/dLCritically zcdz64-602Icj [facility] HospitalComment on above:Performed By: #### CMP #### [facility] [address] [place] [address] Dr. Hussein CamachoPotassium [Moles/Vol]5.7 mmol/LCritically high3.5-5.1The [facility] HospitalComment on above:Performed By: #### CMP #### [facility] [address] [place] [address] Dr. Hussein CamachoProtein [Mass/Vol]7.9 g/dLNormal6.4-8.2The [facility] Comment on above:Performed By: #### CMP #### [facility] [address] [place] [address] Dr. Hussein CamachoSodium [Moles/Vol]141 mmol/ONdkgng373-031BotSelect Medical [facility] Comment on above:Performed By: #### CMP #### [facility] [address] [place] [address] Dr. Hussein CamachoUrea nitrogen [Mass/Vol]42.0 mg/dLCritically high7.0-18.0The [facility] HospitalComment on above:Performed By: #### CMP #### [facility] [address] [place] [address] Dr. Hussein CamachoUrea nitrogen/Creatinine [Mass ratio]28.4 mg/mgNormalThSelect Medical Specialty Hospital - CincinnatiComment on above:Performed By: #### CMP #### [facility] [address] [place] [address] Dr. Hussein CamachoMRI Shoulder w/o Lefton [id number] Shoulder w/o LeftHISTORY: Lateral left-sided shoulder pain with limited range [...] and signed by Boaz Weeks on 10/14/2022 1541NormalNortpage hospitaln [facility] INTACTon 31-36-5452ILM, Pmqijw87 pg/fWBcjygo22-23Buw [facility] HospitalComment on above:Performed By: #### PTHINT #### [facility] [address] [address] [address] Hussein Coats AUTO DIFFon 12-37-2702KHUE #0.1 103/ulNormal0.0-0.1The [facility] HospitalComment on above:Performed By: #### CBC #### [facility] [address] [address] [address] Hussein CamachoBasophils/100 WBC (Bld)0.8 %Normal0.2-2.0The [facility] Comment on above:Performed By: #### CBC #### [facility] [address] [address] [address] Hussein Parrish #0.3 103/ulNormal0.0-0.7The [facility] HospitalComment on above: Performed By: #### CBC #### [facility] [address] [address] [address] Hussein Littleosinophils/100 WBC (Bld)3.3 %Normal0.9-7.0The [facility] Comment on above:Performed By: #### CBC #### [facility] [address] [place] [address] Dr. Hussein Littlerythrocyte distribution width (RBC) [Ratio]13.6 %Vgcxdn36.0-15.0 [facility] DublinComment on above:Performed By: #### CBC #### [facility] [address] [place] [address] Dr. Hussein CamachoHematocrit (Bld) [Volume fraction]41.5 %Xtxbth38.0-48.0The [facility] HospitalComment on above:Performed By: #### CBC #### [facility] [address] [place] [address] Dr. Hussein CamachoHemoglobin (Bld) [Mass/Vol]13.5 g/tVQgnhec88.0-16.0[facility] DublinComment on above:Performed By: #### CBC #### [facility] [address] [place] [address] Dr. Hussein Park #0.03 10e3/ulNormal0.00-0.03The [facility] HospitalComment on above:Performed By: #### CBC #### [facility] [address] [place] [address] Dr. Hussein Park %0.3 %Normal0.0-0.5The [facility] HospitalComment on above: Performed By: #### CBC #### [facility] [address] [place] [address] Dr. Hussein Jessica #1.3 103/ulNormal1.2-3.8The [facility] HospitalComment on above:Performed By: #### CBC #### [facility] [address] [place] [address] Dr. Hussein Wisemanmphocytes/100 WBC (Bld)12.7 %Critically low20.5-60.0[facility] DublinComment on above:Performed By: #### CBC #### [facility] [address] [place] [address] Dr. Hussein ThomasUAL DIFF REQNONormalThe [facility] HospitalComment on above: Performed By: #### CBC #### [facility] [address] [place] [address] Dr. Husseni Lopez (RBC) [Entitic mass]31.4 mlDpwozn69.7-34.0The [facility] HospitalComment on above:Performed By: #### CBC #### [facility] [address] [place] [address] Dr. Hussein Lopez (RBC) [Mass/Vol]32.5 g/oTJvnojb62.9-35.2The [facility] HospitalComment on above:Performed By: #### CBC #### [facility] [address] [place] [address] Dr. Hussein Lopez (RBC) [Entitic vol]96.5 pOPttpfv53.0-99.0The [facility] HospitalComment on above:Performed By: #### CBC #### [facility] [address] [place] [address] Dr. Hussein Singletary #0.9 103/ulCritically high0.3-0.8ThSelect Medical Specialty Hospital [facility] [place] Comment on above:Performed By: #### CBC #### [facility] [address] [place] [address] Dr. Hussein Hdezocytes/100 WBC (Bld)9.0 %Normal1.7-12.0[facility] Comment on above:Performed By: #### CBC #### [facility] [address] [place] [address] Dr. Hussein Shanks #7.5 103/ulCritically high1.4-6.5The [facility] Comment on above:Performed By: #### CBC #### [facility] [address] [place] [address] Dr. Hussein Timutrophils/100 WBC (Bld)73.9 %Ihfxhs35.0-75.0The [facility] HospitalComment on above:Performed By: #### CBC #### [facility] [address] [place] [address] Dr. Hussein Pittslet mean volume (Bld) [Entitic vol]10.6 fLNormal9.5-13.5The [facility] HospitalComment on above:Performed By: #### CBC #### [facility] [address] [place] [address] Dr. Hussein HenryT287 103/xdLnoxab243-706Nas [facility] HospitalComment on above: Performed By: #### CBC #### [facility] [address] [place] [address] Dr. Hussein CamachoRBC4.30 106/ulNormal4.20-5.40The [facility] HospitalComment on above:Performed By: #### CBC #### [facility] [address] [place] [address] Dr. Hussein CamachoWBC10.2 103/ulNormal4.0-11.0The [facility] HospitalComment on above:Performed By: #### CBC #### [facility] [address] [place] [address] Dr. Hussein HendricksF 14(COMP METB)on 75-25-1195Hviemtu [Mass/Vol]4.3 g/dLNormal 3.4-5.0The [facility] HospitalComment on above:Performed By: #### CMP, URIC #### [facility] [address] [place] [address] Dr. Hussein CamachoAlbumin/Globulin [Mass ratio]1.1 {ratio}NormalThe [facility] HospitalComselect specialty hospital[facility] on above:Performed By: #### CMP, URIC #### [facility] [address] [place] [address] Dr. Hussein Olson [Catalytic activity/Vol]102 U/CVaslot93-576Ela [facility] HospitalComselect specialty hospital[facility] on above:Performed By: #### CMP, URIC #### [facility] [address] [place] [address] Dr. Hussein Salinas [Catalytic activity/Vol]47 U/KRmohma32-02Puc [facility] HospitalComment on above:Performed By: #### CMP, URIC #### [facility] [address] [place] [address] Dr. Hussein Lovell gap [Moles/Vol]12.4 mmol/LNormalSelect [facility] Comment on above:Performed By: #### CMP, URIC #### [facility] [address] [address] [address] Hussein CamachoAST [Catalytic activity/Vol]23 U/ENuhkow62-06Ekf [facility] HospitalComment on above:Performed By: #### CMP, URIC #### [facility] [address] [address] [address] Hussein CamachoBilirubin [Mass/Vol]0.4 mg/dLNormal0.2-1.0The [facility] Comment on above:Performed By: #### CMP, URIC #### [facility] [address] [place] [address] Dr. Hussein CamachoCalcium [Mass/Vol]9.2 mg/dLNormal8.5-10.1The [facility] Comment on above:Performed By: #### CMP, URIC #### [facility] [address] [place] [address] Dr. Hussein CamachoChloride [Moles/Vol]102 mmol/WUxurca33-066Dgx [facility] Comment on above:Performed By: #### CMP, URIC #### [facility] [address] [place] [address] Dr. Hussein CamachoCO2 [Moles/Vol]28.5 mmol/IDcuflj22.0-32.0The [facility] Comment on above:Performed By: #### CMP, URIC #### [facility] [address] [place] [address] Dr. Hussein CamachoCreatinine [Mass/Vol]1.55 mg/dLCritically high0.55-1.02The [facility] HospitalComment on above:Performed By: #### CMP, URIC #### [facility] [address] [place] [address] Dr. Hussein LittleGFR-AF DOCAHEYP63 mL/min/1.43f4Zsxahfsanr low>=60The [facility] HospitalComment on above:Performed By: #### CMP, URIC #### [facility] [address] [address] [address] Hussein LittleGFR-NON AF FJRCDHWG80 mL/min/1.98g2Gwkyfnexyp low>=60The [facility] HospitalComment on above:Performed By: #### CMP, URIC #### [facility] [address] [address] [address] Hussein CamachoGlobulin (S) [Mass/Vol]3.9 g/dLNoWayne HospitalComment on above:Performed By: #### CMP, URIC #### [facility] [address] [address] [address] Hussein CamachoGlucose [Mass/Vol]160 mg/dLCritically adzl01-666Lyu [facility] HospitalComment on above:Performed By: #### CMP, URIC #### [facility] [address] [place] [address] Dr. Hussein CamachoPotassium [Moles/Vol]3.9 mmol/LNormal3.5-5.1The [facility] Comment on above:Performed By: #### CMP, URIC #### [facility] [address] [address] [address] Hussein CamachoProtein [Mass/Vol]8.2 g/dLNormal6.4-8.2The [facility] Comment on above:Performed By: #### CMP, URIC #### [facility] [address] [place] [address] Dr. Hussein CamachoSodium [Moles/Vol]139 mmol/KQqbyzz801-866Usz [facility] Comment on above:Performed By: #### CMP, URIC #### [facility] [address] [place] [address] Dr. Hussein CamachoUrea nitrogen [Mass/Vol]42.0 mg/dLCritically high7.0-18.0The [facility] HospitalComment on above:Performed By: #### CMP, URIC #### [facility] [address] [place] [address] Dr. Hussein CamachoUrea nitrogen/Creatinine [Mass ratio]27.1 mg/mgNoWayne HospitalComment on above:Performed By: #### CMP, URIC #### [facility] [address] [address] [address] Hussein Harden 95-03-6124Zinxddjri Ql (U)NegativeNormalNEGATIVESelect Medical [facility] - DublinComment on above:Performed By: #### UA #### [facility] [address] [address] [address] Hussein CamachoClarity (U)CLEARNormalCLEARMercy Health [facility] Hospital HospitalComment on above: Performed By: #### UA #### [facility] [facility] [address] [address] [address] Hussein Green (U)LT. YELLOWNormalYELLOWSelect Medical Ohiohealth Rehabilitation Hospital - DublinComment on above:Performed By: #### UA #### [facility] [address] [place] [address] Dr. Hussein CamachoGlucose Ql (U)NegativeNormalNEGATIVESelect Medical Ohiohealth Rehabilitation Hospital - DublinComment on above:Performed By: #### UA #### [facility] [address] [address] [address] Hussein CamachoHemoglobin Ql (U)TRACE-INTACTAbnormalNEGUniversity Hospitals Health SystemComment on above:Performed By: #### UA #### [facility] [address] [address] [address] Hussein CamachoKetones Ql (U)NegativeNormalNEGATIVESelect Medical Ohiohealth Rehabilitation Hospital - DublinComment on above:Performed By: #### UA #### [facility] [address] [address] [address] Hussein CamachoLEUKOCYTESSMALLAbnormalNEGATIVESelect Medical Ohio[facility] Rehabilitation Hospital - DublinComselect [facility] on above:Performed By: #### UA #### [facility] [address] [address] [address] Hussein CamachoNitrite Ql (U)NegativeNormalNEGATIVESelect Medical Ohiohealth Rehabilitation Hospital - DublinComment on above:Performed By: #### UA #### [facility] [address] [address] [address] Hussein CamachopH (U)6.0 [pH]Normal5-9Select [facility] Hospital - DublinComment on above: Performed By: #### UA #### [facility] [address] [place] [address] Dr. Hussein CamachoSPEC GRAVITY1.539Jytxmj8.005-<=1.025The [facility]ain HospitalComment on above:Performed By: #### UA #### [facility] [address] [place] [address] Dr. Hussein Bales PROTEINNegativeNormalNEGATIVE/ TRACEThe [facility] Comment on above:Performed By: #### UA #### [facility] [address] [place] [address] Dr. Hussein Martinesbilinogen Qn (U)0.2 {Naina'U}/dLNormal0.2 - 1.0The [facility] HospitalComment on above:Performed By: #### UA #### [facility] [address] [place] [address] Dr. Hussein CamachoURIC ACID SERUMon 56-47-5114Hlhsn [Mass/Vol]7.5 mg/dLCritically high2.6-6.0The [facility] HospitalComment on above:Performed By: #### CMP, URIC #### [facility] [address] [place] [address] Dr. Hussein Kovacs T PROTEIN CREAT RATIOon 29-11-9703Kbmfgct (U) [Mass/Vol]7.3 mg/dLNormal<=12.0The [facility] HospitalComment on above:Performed By: #### URTPCR #### [facility] [address] [place] [address] Dr. Hussein Gamboa PROT CREAT RAT0.13NormalThe [facility] HospitalComment on above: Performed By: #### URTPCR #### [facility] [address] [place] [address] Dr. Hussein Kovacs CREAT56.41 mg/vBSrogru00.00-300.00The [facility] Comment on above:Performed By: #### URTPCR #### [facility] [address] [place] [address] Dr. Hussein CamachoVITAMIN D 25 OHon 29-66-3902ECV D 25-OH50.6 ng/mLNAdena Health SystemComment on above:Performed By: #### VITAD #### [facility] [id number] Hussein Draper RANGESSEE BELOWPaulding County HospitalComment on above: Result Comment: <20 ng/mL Vit D deficient 20 - <30 ng/mL Vit D insufficient 30 - 100 ng/mL Vit D sufficient >100 ng/mL Potential ToxicityPerformed By: #### VITAD #### [facility] [address] [place] [address] Dr. Savage ChangECHOCARDIO M/2D COMPLETEon 88-96-7460QVZJBXHDWZ M/2D COMPLETE Patient: YESY RODRIGUEZ Exam Date: 08/21/2022 : 1940 Gender:F Ordering : KATHARINA JOVEL Admission #: [id number] Family : DR ZACHARY BOYLE Order #: [id number] CLICK HERE TO VIEW EXAM ECHOCARDIOGRAM REPORT [...] by: Onel Wright M.D. on 08/23/2022 at 17:05[facility] 125on 30-75-7433VE 1258 U/mLNINF - 38 U/mLB[facility] Comment on above:The Jorje ECLIA assay is used. Results obtained with different assay methods cannot be used interchangeable. [facility] SPRINGFIELDALBUMIN, RANDOM URINE W/CREATININEon 79-64-0742GVZWOPW, URINE2.5 mg/dLNormalSee Note:Quest DiagnosticsComment on above:Order Comment: FASTING:YESFASTING: YESResult Comment: Reference Range: Reference Range Not establishedPerformed By: #### 10105, 867 #### [facility] [address] [employer]: Matt Beasley MDALBUMIN/CREATININE RATIO, RANDOM URINE39 mcg/mg creatHigh<30Quest DiagnosticsComment on above:Order Comment: FASTING:YESFASTING: YESResult Comment: The ADA defines abnormalities in albumin excretion as follows: Albuminuria Category Result (mcg/mg creatinine) Normal to Mildly increased <30 Moderately increased 30-299 Severely increased > OR = 300 The ADA recommends that at least two of three specimens collected within a 3-6 month period be abnormal before considering a patient to be within a diagnostic category.Performed By: #### 28873, 867 #### [facility] [address] [employer]: Matt Beasley MDCreatinine (U) [Mass/Vol]64 mg/xEFdefwx71-444 Quest DiagnosticsComment on above:Order Comment: FASTING:YESFASTING: YES Performed By: #### 83153, 867 #### [facility] [address], [address] [place] [address] [employer]: Matt SILVER METABOLIC PANELon 51-72-9893Xzassiy [Mass/Vol]10.0 mg/dLNormal8.6-10.4Quest DiagnosticsComment on above:Performed By: #### 33934, 867 #### [facility] [address], [address] [place] [address] [employer]: Matt Beasley MDChloride [Moles/Vol]103 mmol/SNnixra83-750 Quest DiagnosticsComment on above:Performed By: #### 30568, 867 #### [facility] [address], [address] [place] [address] [employer]: Matt Beasley MDCO2 [Moles/Vol]25 mmol/YPqnedp07-38Favcn DiagnosticsComment on above:Performed By: #### 89853, 867 #### [facility] [address], [address] [place] [address] [employer]: Matt MCCORMICKreatinine [Mass/Vol]1.43 mg/dLHigh0.60-0.95 Quest DiagnosticsComment on above:Performed By: #### 75752, 867 #### [facility] [address], [address] [place] [address] [employer]: Matt Beasley MDGFR/1.73 sq M.predicted among non-blacks MDRD (S/P/Bld) [Vol rate/Area]36 mL/min/{1.73_m2}Low> OR = 60Quest DiagnosticsComment on above:Result Comment: The eGFR is based on the CKD-EPI 2020 equation. To calculate the new eGFR from a previous Creatinine or Cystatin C result, go to https://www.kidney.org/professionals/ kdoqi/gfr%5FcalculatorPerformed By: #### 88214, 867 #### [facility] [address], [address] [place] [address] [employer]: Matt Beasley MDGlucose [Mass/Vol]124 mg/pGJkba38-99Paqmz DiagnosticsComment on above:Result Comment: Fasting reference interval For someone without known diabetes, a glucose value between 100 and 125 mg/dL is consistent with prediabetes and should be confirmed with a follow-up test.Performed By: #### 31988, 867 #### [facility] [address], [address] [place] [address] [employer]: Matt Beasley MDPotassium [Moles/Vol]5.5 mmol/LHigh3.5-5.3 Quest DiagnosticsComment on above:Performed By: #### 02192, 867 #### [facility] [address] [address] [employer]: Matt Beasley MDSodium [Moles/Vol]138 mmol/IYqnlfa339-553Mimii DiagnosticsComment on above:Performed By: #### 17192, 867 #### [facility] [address] [address] [employer]: Matt Beasley MDUrea nitrogen [Mass/Vol]43 mg/dLHigh7-25Quest DiagnosticsComment on above:Performed By: #### 57198, 867 #### [facility] [address] [address] [employer]: Matt Beasley MDUrea nitrogen/Creatinine [Mass ratio]30 mg/mg High6-22Quest DiagnosticsComment on above:Performed By: #### 52909, 867 #### [facility] [address] [address] [employer]: Matt Beasley MDHEMOGLOBIN A1con 71-18-5706QVNBLRPDFV A1c6.1 % of total HgbHigh<5.7Quest DiagnosticsComment on above:Result Comment: For someone without known diabetes, a [...] hemoglobin A1c for diagnosis of diabetes for children.Performed By: #### 30207, 867 #### [facility] [address], [address] [place] [address] [employer]: Matt KELLEYOCARDIO M/2D COMPLETEon 06-05-2022 ECHOCARDIO M/2D COMPLETEPatient: YESY RODRIGUEZ Exam Date: 06/05/2022 : 1940 Gender:F Ordering : DHEERAJ SESAY Admission #: [id number] Family : DR ZACHRAY BOYLE Order #: [id number] CLICK HERE TO VIEW EXAM ECHOCARDIOGRAM REPORT [...] by: Onel Wright M.D. on 06/05/2022 at 13:14[facility] MAMM SCREEN 3D GIRMA CADon 01-28-7570GW MAMM SCREEN 3D GIRMA CADPatient: YESY RODRIGUEZ Exam Date: 05/29/2022 : 1940 Gender:F Ordering : DR ZACHARY BOYLE Admission #: [id number] Family : Order #: [id number] CLICK HERE TO VIEW EXAM RADIOLOGY REPORT [...] ovarian cancer at age 36. LOCATION: [facility] BREAST COMPOSITION: Heterogeneously dense,which may obscure [...] by: Charis Schreiber MD on 06/11/2022 at 14:06Paulding County HospitalPROF CHEM 8 (BAS METB)on 46-46-4008Knncb gap [Moles/Vol]15.1 mmol/LNormalSelect Medical Ohiohealth Rehabilitation Hospital - DublinComment on above:Performed By: #### BMP #### [facility] [address] [address] [address] Hussein CamachoCalcium [Mass/Vol]9.6 mg/dLNormal8.5-10.1[facility] Comment on above:Performed By: #### BMP #### [facility] [address] [place] [address] Dr. Hussein CamachoChloride [Moles/Vol]103 mmol/ZJuyriy96-580UknSelect Medical Ohiohealth Rehabilitation Hospital - Dublin Comment on above:Performed By: #### BMP #### [facility] [address] [address] [address] Hussein CamachoCO2 [Moles/Vol]26.0 mmol/GTgigyv46.0-32.0[facility] Comment on above:Performed By: #### BMP #### [facility] [address] [place] [address] Dr. Hussein CamahcoCreatinine [Mass/Vol]1.51 mg/dLCritically high0.55-1.02[facility] - DublinComment on above:Performed By: #### BMP #### [facility] [address] [address] [address] Hussein LittleGFR-AF RDBORRZI73 mL/min/1.55p7Acdmevelwo low>=60The [facility] HospitalComment on above:Performed By: #### BMP #### [facility] [address] [address] [address] Hussein LittleGFR-NON AF UAYOLQAX73 mL/min/1.71s3Rpcyheydzy low>=60The [facility] HospitalComment on above:Performed By: #### BMP #### [facility] [address] [address] [address] Hussein CamachoGlucose [Mass/Vol]120 mg/dLCritically magu46-892Iut [facility] Clinic [facility]on Hospitalment on above:Performed By: #### BMP #### [facility] [address] [address] [address] Hussein CamachoPotassium [Moles/Vol]5.1 mmol/LNormal3.5-5.1The [facility] Comment on above:Performed By: #### BMP #### [facility] [address] [address] [address] Hussein CamachoSodium [Moles/Vol]139 mmol/FHwcazp008-600Jno [facility] Comment on above:Performed By: #### BMP #### [facility] [address] [address] [address] Hussein CamachoUrea nitrogen [Mass/Vol]40.0 mg/dLCritically high7.0-18.0The [facility] HospitalComment on above:Performed By: #### BMP #### [facility] [address] [address] [address] Hussein Zarate nitrogen/Creatinine [Mass ratio]26.5 mg/mgNormalThe [facility] HospitalComment on above:Performed By: #### BMP #### [facility] [address] [address] [address] Hussein Stokesc Metabolic Panelon 07-58-3208Vjifs gap [Moles/Vol]10 mmol/L9 - 17 mmol/LMercy HealthCalcium [Mass/Vol]9.8 mg/dL8.6 - 10.4 mg/dLUniversity Hospitals Ahuja [facility] Center Chloride [Moles/Vol]104 mmol/L98 - 107 mmol/LMercy HealthCO2 [Moles/Vol]25 mmol/L20 - 31 mmol/LMercy HealthCreatinine [Mass/Vol]1.23 mg/dLHigh0.50 - 0.90 mg/dLSycamore Medical Center HealthGFR Yqmhmiyg06 mL/minLow>60Mer HealthGFR Non- Ksyhptfn81 mL/minLow>60Mer HealthGlucose [Mass/Vol]133 mg/gDDrft04 - 99 mg/dL [facility]huja Medical CenterInterpretation and review of laboratory resultsAbnormalUniversity Hospitals Ahuja Medical Center Potassium [Moles/Vol]4.2 mmol/L3.7 - 5.3 mmol/LMercy HealthSodium [Moles/Vol]139 mmol/L135 - 144 mmol/LMercy HealthUrea nitrogen (BldV) [Mass/Vol]32 mg/dLHigh8 - 23 mg/dLUniversity Hospitals Ahuja Medical CenterUrea nitrogen/Creatinine (Bld) [Mass ratio]26HighUpland Hills HealthLaboratory - Chemistry and Chemistry - challengeon 03-27-2022 GFR/1.73 sq M.predicted MDRD (S/P/Bld) [Vol rate/Area][facility] Ahuja Medical CenterComment on above:Average GFR for 70 or more years old: 75 mL/min/1.73sq m Chronic Kidney Disease: <60 mL/min/1.73sq m Kidney failure: <15 mL/min/1.73sq m eGFR calculated using average adult body mass. Additional eGFR calculator available at: http://www.Tiragiu.Aplica/multiple_crcl_2012.htm Stage 1: Some kidney damage normal GFR Stage 2: Mild kidney damage GFR 60-89 Stage 3: Moderate kidney damage GFR 30-59 Stage 4: Severe kidney damage GFR 15-29 Stage 5: Severe kidney damage GFR <15 ESRD - chronic treatment by dialysis or transplant BASIC METABOLIC PANELon 34-66-1266Qlikhep [Mass/Vol]10.1 mg/dLNormal8.6-10.4 Quest DiagnosticsComment on above:Performed By: #### 09923, 905, 90199, 718, 85323, 622, 54680, 496 #### [facility] [address], [address] [place] [address] [employer]: Matt Beasley MDChloride [Moles/Vol]100 mmol/HLswfvp18-044 Quest DiagnosticsComment on above:Performed By: #### 62333, 905, 84154, 718, 73426, 622, 64609, 496 #### [facility] [address], [address] [place] [address] [employer]: Matt Beasley MDCO2 [Moles/Vol]28 mmol/XAowzmw90-03Rzckz DiagnosticsComment on above:Performed By: #### 57546, 905, 97311, 718, 04273, 622, 71530, 496 #### [facility] [address], [address] [place] [address] [employer]: Matt Beasley MDCreatinine [Mass/Vol]1.89 mg/dLHigh0.60-0.88 Quest DiagnosticsComment on above:Result Comment: For patients >49 years of age, the reference limit for Creatinine is approximately 13% higher for people identified as -Trinidadian.Performed By: #### 04563, 905, 29923, 718, 48064, 622, 89255, 496 #### [facility] [address], [address] [place] [address] [employer]: Matt Beasley MDeGFR NON-AFR. UYPCAJDE44 mL/min/1.89i6Ddn> OR = 60Quest DiagnosticsComment on above:Performed By: #### 42931, 905, 62269, 718, 37213, 622, 61749, 496 #### [facility] [address], [address] [place] [address] [employer]: Matt Beasley MDGFR/1.73 sq M.predicted among blacks MDRD (S/P/Bld) [Vol rate/Area]28 mL/min/{1.73_m2}Low> OR = 60Quest DiagnosticsComment on above:Performed By: #### 41061, 905, 50224, 718, 06799, 622, 65914, 496 #### [facility] [address] [address] [employer]: Matt Beasley MDGlucose [Mass/Vol]123 mg/wKYlrf50-90Xyqfj DiagnosticsComment on above:Result Comment: Fasting reference interval For someone without known diabetes, a glucose value between 100 and 125 mg/dL is consistent with prediabetes and should be confirmed with a follow-up test.Performed By: #### 36306, 905, 56980, 718, 14685, 622, 59160, 496 #### [facility] [address] [address] [employer]: Matt Beasley MDPotassium [Moles/Vol]4.7 mmol/LNormal3.5-5.3 Quest DiagnosticsComment on above:Performed By: #### 05424, 905, 71329, 718, 36078, 622, 53430, 496 #### [facility] [address] [address] [employer]: Matt Beasley MDSodium [Moles/Vol]136 mmol/SLelgsj289-184Spjpl DiagnosticsComment on above:Performed By: #### 56634, 905, 84302, 718, 94533, 622, 68384, 496 #### [facility] [address] [address] [employer]: Mtat Beasley MDUrea nitrogen [Mass/Vol]64 mg/dLHigh7-25Quest DiagnosticsComment on above:Performed By: #### 10840, 905, 61882, 718, 70445, 622, 87433, 496 #### [facility] [address] [address] [employer]: Matt Beasley MDUrea nitrogen/Creatinine [Mass ratio]34 mg/mg High6-22Quest DiagnosticsComment on above:Performed By: #### 28742, 905, 03428, 718, 84220, 622, 69750, 496 #### [facility] [address], [address] [place] [address] [employer]: Matt Beasley MDHEMOGLOBIN A1con 40-15-9830UHHVNOKNMH A1c6.4 % of total HgbHigh<5.7Quest DiagnosticsComment on above:Result Comment: For someone without known diabetes, a [...] hemoglobin A1c for diagnosis of diabetes for children.Performed By: #### 79269, 867 #### [facility] [address], [address] [place] [address] [employer]: Matt Beasley MDMAGNESIUMon 25-46-2564Ktcnmxssl [Mass/Vol]2.3 mg/dLNormal1.5-2.5Quest DiagnosticsComment on above:Order Comment: FASTING:YES FASTING: YESPerformed By: #### 09305, 905, 45538, 718, 57781, 622, 39873, 496 #### [facility] [address], [address] [place] [address] [employer]: Matt Beasley MDPHOSPHATE ( PHOSPHORUS)on 03-05-2022 Phosphate [Mass/Vol]4.5 mg/dLHigh2.1-4.3Quest DiagnosticsComment on above: Performed By: #### 77325, 905, 67602, 718, 11691, 622, 57300, 496 #### [facility] [address], [address] [place] [address] [employer]: Matt Beasley MDPTH, INTACT WITHOUT CALCIUMon 03-05-2022 PARATHYROID HORMONE, CCGZCP44 pg/oFHhrybe23-35Wayer DiagnosticsComment on above: Result Comment: Interpretive Guide Intact PTH Calcium ------- Normal Parathyroid Normal Normal Hypoparathyroidism Low or Low Normal Low Hyperparathyroidism Primary Normal or High High Secondary High Normal or Low Tertiary High High Non-Parathyroid Hypercalcemia Low or Low Normal HighPerformed By: #### 22428, 905, 50177, 718, 03447, 622, 09161, 496 #### [facility] [address] [address] [employer]: Matt Beasley MDVETERANS HEALTH ADMINISTRATION W/REFLEX TO FT4on 79-56-1856JAK W/REFLEX TO FT44.31 mIU/LNormal0.40-4.50Quest DiagnosticsComment on above:Performed By: #### 19954, 905, 94840, 718, 05416, 622, 66036, 496 #### [facility] [address] [employer]: Matt Beasley MDURIC ACIDon 39-97-1085Uqbex [Mass/Vol]8.7 mg/dLHigh2.5-7.0Quest DiagnosticsComment on above:Result Comment: Therapeutic target for gout patients: <6.0 mg/dLPerformed By: #### 05550, 905, 92513, 718, 03843, 622, 23778, 496 #### [facility] [address], [address] [place], [place] [address] [employer]: Matt Beasley MDVITAMIN D,25-OH,TOTAL,IAon 97-67-6702VLYINNC D,25-OH,TOTAL,IA48 ng/uDOsqpsq28-238Cqlrz DiagnosticsComment on above:Result Comment: Vitamin D Status 25-OH Vitamin D: Deficiency: <20 ng/mL Insufficiency: 20 - 29 ng/mL Optimal: > or = 30 ng/mL For 25-OH Vitamin D testing on patients on D2-supplementation and patients for whom quantitation of D2 and D3 fractions is required, the QuestAssureD(TM) 25-OH VIT D, (D2,D3), LC/MS/MS is recommended: order code 17579 (patients >2yrs). See Note 1 Note 1 For additional information, please refer to http://education.[employer]/faq/FHV752 (This link is being provided for informational/ educational purposes only.)Performed By: #### 17675, 905, 82491, 718, 46639, 622, 03373, 496 #### [facility] [address] [facility], [address] [place] [address] [employer]: Matt Beasley MDUS carotid doppler BIon 58-49-3864EU carotid doppler [facility] Main [place] [address] [place] [address] Ultrasound Report Signed Patient: Yesy Valadez MR#: [id number] 74 : 1940 Acct:[id number] Age/Sex: 81 / F ADM Date: 01/21/22 Loc: RT Room: Type: [facility] Attending Dr: Onel Wright MD Ordering Provider: [...] Kevon Hickman MD01/22/2022 12:41 PM Dictation Location[facility] Tech: Alissa Saundra Transcribed By: DENIA 01/22/22 1241 Dictated By: Kevon Hickman MD 01/22/22 1241 Signed By: 01/22/22 1241NormMiddletown HospitalComplete Pulmonary Function on 36-11-7909Uucmkzjv Pulmonary FunctionTHE [facility]GICAL [facility] [place] [address] Pulmonary Function Signed Patient: Yesy Valadez MR#: [id number] [birth year] : 1940 Acct:[id number] Age/Sex: 81 / F ADM Date: 01/21/22 Loc: RT Room: Type: [facility] Attending Dr: Onel Wright MD Ordering Provider: [...] with irregularity of the expiratory flow with post- bronchodilator study revealing poor initial effort and overall [...] of 1.17 L or 83% predicted. The THM05-14% was supranormal at 2.15 L/sec or 214% predicted with this all likely related to the inadequate duration of exhalation. After a 350% longer duration of exhalation on the postbronchodilator effort, the forced vital capacity did improve by 25% to 1.47 L or 76% predicted. There is actually a 14% decline in the FEV1 and a 60% decline in the AJF44-44%. LUNG VOLUMES: Lung volumes by plethysmography indicate [...] Bucio MD 01/21/22 1240 Signed By: 01/22/22 1347Adena Health SystemCREATININE BLOODon 72-93-2039Elnxuczyjw [Mass/Vol]1.04 mg/dLNormal0.60-1.20The [facility] HospitalComment on above:Order Comment: No: Do not add to previous draw Performed By: #### 96109 #### [facility] [address] [place] [address], USAeGFR- non- Jgggwqmq77 ml/min/1.73sq mAbnormal>60The [facility] HospitalComment on above:Order Comment: No: Do not add to previous drawResult Comment: Calculation may not be valid for patients over 70 yearsPerformed By: #### 21822 #### [facility] [address] [place] [address], USAGFR/1.73 sq M.predicted among blacks MDRD (S/P/Bld) [Vol rate/Area]mL/min/{1.73_m2}Normal>60[facility] Comment on above:Order Comment: No: Do not add to previous drawResult Comment: Calculation may not be valid for patients over 70 yearsPerformed By: #### 75253 #### [facility] [address] [place] [address], USACardiovascular Lab Reporton 64-03-8975Zksjudhanllvvs Lab ReportUnSelect Medical [facility] Patient Name: Yesy Rodriguez [facility] MR #: [id number] Physician: Onel De of Vilma Wright Medicine Service Date: 01/16/2022 Division of Birthdate: 1940 Cardiology Room #: 4CD [id number] Adult Cardiovascular Services [facility] [address] [place], [place] [address] Cardiovascular Laboratory Report INDICATION: The patient is [...] enlarged. She is now brought to the slab tripper for cardiac catheterization. PROCEDURES: 1. Right heart catheterization. 2. Left heart catheterization. 3. Mitral valve study. 4. Aortic valve study. 5. Bilateral selective coronary angiography. 6. Limited right common femoral angiography. 7. Access into the right common femoral artery and vein under ultrasound guidance. METHODS: Procedure was explained to the patient with risks and benefits. She signed consent. She was brought to slab tripper in a fasting state. The right groin area was prepped and draped in usual fashion. Micropuncture technique was used for access in the right common femoral artery. Inner cannula angiography was performed followed by upsizing to a 4-Kittitian x 11 cm sheath. Access was obtained using same technique in the right common femoral vein and a 6-Kittitian x 11 cm sheath was placed. A 6-Kittitian Orosco catheter was used for heart catheterization with measurement pressures and calculation of cardiac output using the estimated ROSE MARIE method. A 4-Kittitian JR4 diagnostic catheter was advanced to the [...] selective coronary angiography was then performed using 4-Kittitian JL4 and JR4 diagnostic catheters. Catheters were [...] 3. Moderately elevated right-sided filling pressures. 4. Olmyowvs-yq-tvputv elevation of the left-sided filling pressures. 5. [...] which was noted on (more content not included)...NormalThe [facility] GLUCOSE LABon 39-92-4481Cndgmnk [Mass/Vol]109 mg/dGItkl82-482Itk [facility] HospitalComment on above:Performed By: #### [id number] #### [facility] [place] [place] [address], [facility] CENTERBASI METABOLIC PANELon 36-09-1345Eozlmal [Mass/Vol]9.2 mg/dLNormal8.6-10.3The [facility] HospitalComment on above:Order Comment: This order is a replacement of the rejected order with accession number [id number].Performed By: #### [id number] #### [facility] [address] [place] [address], USAChloride [Moles/Vol]105 mmol/NCtbxle07-038Gju [facility] HospitalComment on above:Order Comment: This order is a replacement of the rejected order with accession number [id number].Performed By: #### 81095 #### [facility] [address] [place] [address], USACO2 [Moles/Vol]26 mmol/QMnpyux70-32Ozc [facility] HospitalComment on above:Order Comment: This order is a replacement of the rejected order with accession number [id number].Performed By: #### [id number] #### [facility] [address] [place] [address], USACreatinine [Mass/Vol]1.27 mg/dLHigh0.60-1.20The [facility] HospitalComment on above:Order Comment: This order is a replacement of the rejected order with accession number [id number].Performed By: #### 49546 #### [facility] [address] [place] [address], USAeGFR- Tbvisoqb79 ml/min/1.73sq mAbnormal>60The [facility] HospitalComment on above:Order Comment: This order is a replacement of the rejected order with accession number [id number].Result Comment: Calculation may not be valid for patients over 70 yearsPerformed By: #### 79359 #### [facility] [address] [place] [address], USAeGFR- non- Szyvcprg97 ml/min/1.73sq mAbnormal>60The [facility] HospitalComment on above:Order Comment: This order is a replacement of the rejected order with accession number [id number].Result Comment: Calculation may not be valid for patients over 70 yearsPerformed By: #### 34798 #### [facility] [address] [place] [address], USAGlucose [Mass/Vol]113 mg/iEUbbo24-030Bfa [facility] HospitalComment on above:Order Comment: This order is a replacement of the rejected order with accession number [id number].Performed By: #### 27980 #### [facility] [address] [place] [address], USAPotassium [Moles/Vol]4.0 mmol/LNormal3.5-5.1The [facility] HospitalComment on above:Order Comment: This order is a replacement of the rejected order with accession number [id number].Performed By: #### 94063 #### [facility] [address] [place] [address], USASodium [Moles/Vol]140 mmol/MUqxamr868-601Tbx [facility] HospitalComment on above:Order Comment: This order is a replacement of the rejected order with accession number [id number].Performed By: #### [id number] #### [facility] [address] [place] [address], USAUrea nitrogen [Mass/Vol]48 mg/dLHigh7-25The [facility] HospitalComment on above:Order Comment: This order is a replacement of the rejected order with accession number [id number].Performed By: #### [id number] #### [facility] [address] [place] [address], USACalcium [Mass/Vol]9.3 mg/dLNormal8.6-10.3The [facility] HospitalComment on above:Performed By: #### 79845 #### [facility] [address] [place] [address], USAChloride [Moles/Vol]106 mmol/JZpaxmn25-477Ddn [facility] HospitalComment on above:Performed By: #### 63917 #### [facility] [address] [place] [address], USACO2 [Moles/Vol]27 mmol/TCkkgud86-66Veg [facility] HospitalComment on above:Performed By: #### 10324 #### [facility] [address] [place] [address], USACreatinine [Mass/Vol]1.47 mg/dLHigh0.60-1.20The [facility] HospitalComment on above:Performed By: #### 99601 #### [facility] [address] [place] [address], USAeGFR- Chmbsxae19 ml/min/1.73sq mAbnormal>60The [facility] HospitalComment on above:Result Comment: Calculation may not be valid for patients over 70 yearsPerformed By: #### 66186 #### [facility] [address] [place] [address], USAeGFR- non- Jlzopizv39 ml/min/1.73sq mAbnormal>60The [facility] HospitalComment on above:Result Comment: Calculation may not be valid for patients over 70 yearsPerformed By: #### 37867 #### [facility] [address] [place] [address], USAGlucose [Mass/Vol]107 mg/wIUrom41-477Ruh [facility] HospitalComment on above:Performed By: #### 03058 #### [facility] [address] [place] [address], USAPotassium [Moles/Vol]4.5 mmol/LNormal3.5-5.1The [facility] HospitalComment on above:Performed By: #### 34527 #### [facility] [address] [place] [address], USASodium [Moles/Vol]141 mmol/QLkqhpq931-762Dhh [facility] HospitalComment on above:Performed By: #### 44651 #### [facility] [address] [place] [address], USAUrea nitrogen [Mass/Vol]51 mg/dLHigh7-25The [facility] HospitalComment on above:Performed By: #### 40835 #### [facility] [address] [place] [address], USACBC COMPLETE BLOOD COUNTon 27-79-3151Ternfjpxzpw distribution width (RBC) [Ratio]15.6 %High11.5-15.0The [facility] HospitalComment on above:Performed By: #### 14426 #### [facility] [address] [facility] [place] [address], USAHematocrit (Bld) [Volume fraction]39.3 %Jwxlfd41.0-45.0The [facility] HospitalComment on above:Performed By: #### 87850 #### [facility] [address] [place] [address], USAHemoglobin (Bld) [Mass/Vol]12.2 g/lWWprzbk57.0-15.0The [facility] HospitalComment on above:Performed By: #### 28580 #### [facility] [address] [place] [address], [facility] MEDICAL CENTERMCH (RBC) [Entitic mass]28.7 wqGvcqub72.0-33.0The [facility] HospitalComment on above:Performed By: #### 63732 #### [facility] [address] [facility] [place] [address], USAMCHC (RBC) [Mass/Vol]31.0 g/dLLow32.0-35.0The [facility] HospitalComment on above:Performed By: #### 01509 #### [facility] [address] [place] [address], USAMCV (RBC) [Entitic vol]92.5 hMCjuuhi92.0-98.0The [facility] HospitalComment on above:Performed By: #### 51694 #### [facility] [address] [place] [id number], USANucleated RBC/100 WBC (Bld) [Ratio]0 %Normal0-0The [facility] HospitalComment on above:Performed By: #### 53361 #### [facility] [address] [place] [address], USAPLAT NIB377 10*3/bJSrrzfc550-093Pjm [facility] HospitalComment on above:Performed By: #### 11221 #### [facility] [address] [place] [address], USARBC (Bld) [#/Vol]4.25 10*6/uLNormal3.80-5.00The [facility] HospitalComment on above:Performed By: #### 24128 #### [facility] [address] [place] [address], USAWBC (Bld) [#/Vol]8.68 10*3/uLNormal4.00-10.60The [facility] HospitalComment on above:Performed By: #### 34956 #### [facility] [address] [facility] [place] [address], USABASIC METABOLIC PANELon 63-94-4998Kbveoat [Mass/Vol]10.2 mg/dLNormal8.6-10.4Quest DiagnosticsComment on above:Order Comment: FASTING:YESFASTING: YESPerformed By: #### 03039, 517 #### [facility] [address] [address] [employer]: Matt Beasley MDCethel [Moles/Vol]100 mmol/DYrgopt19-209 [facility] DiagnosticsComment on above:Order Comment: FASTING:YESFASTING: YES Performed By: #### 43292, 867 #### [facility] [address] [place] [address] [employer]: Matt Beasley MDCO2 [Moles/Vol]28 mmol/GKvpmbn69-00Xescu DiagnosticsComment on above:Order Comment: FASTING:YESFASTING: YESPerformed By: #### 46553, 867 #### [facility] [address], [address] [place] [address] [employer]: Matt MCCORMICKreatinine [Mass/Vol]1.54 mg/dLHigh0.60-0.88 Quest DiagnosticsComment on above:Order Comment: FASTING:YESFASTING: YESResult Comment: For patients >49 years of age, the reference limit for Creatinine is approximately 13% higher for people identified as -Trinidadian.Performed By: #### 93172, 867 #### [facility] [address], [address] [place] [address] [employer]: Matt Beasley MDeGFR NON-AFR. NFNGFPRL31 mL/min/1.13v2Dcz> OR = 60Quest DiagnosticsComment on above:Order Comment: FASTING:YESFASTING: YES Performed By: #### 57587, 867 #### [facility] [place] [address] [employer]: Matt Beasley MDGFR/1.73 sq M.predicted among blacks MDRD (S/P/Bld) [Vol rate/Area]36 mL/min/{1.73_m2}Low> OR = 60Quest DiagnosticsComment on above:Order Comment: FASTING:YESFASTING: YESPerformed By: #### 40011, 867 #### [facility] [place] [address] [employer]: Matt Beasley MDGlucose [Mass/Vol]119 mg/xTZwns44-44Cmovx DiagnosticsComment on above:Order Comment: FASTING:YESFASTING: YESResult Comment: Fasting reference interval For someone without known diabetes, a glucose value between 100 and 125 mg/dL is consistent with prediabetes and should be confirmed with a follow-up test.Performed By: #### 97815, 867 #### [facility] [address], [address] [place] [address] [employer]: Matt Beasley MDPotassium [Moles/Vol]4.1 mmol/LNormal3.5-5.3 Quest DiagnosticsComment on above:Order Comment: FASTING:YESFASTING: YES Performed By: #### 80826, 867 #### [facility] [address], [address] [place] [address] [employer]: Matt Beasley MDSodium [Moles/Vol]140 mmol/PVdiitd770-897Vviaq DiagnosticsComment on above:Order Comment: FASTING:YESFASTING: YESPerformed By: #### 92851, 867 #### [facility] [place] [address] [employer]: Matt Beasley MDUrea nitrogen [Mass/Vol]45 mg/dLHigh7-25Quest DiagnosticsComment on above:Order Comment: FASTING:YESFASTING: YESPerformed By: #### 83372, 867 #### [facility] [place] [address] [employer]: Matt Vaughan nitrogen/Creatinine [Mass ratio]29 mg/mg High6-22Quest DiagnosticsComment on above:Order Comment: FASTING:YESFASTING: YES Performed By: #### 03377, 867 #### [facility] [place] [address] [employer]: Matt Beasley MDBASI METABOLIC PANELon 64-99-4174Vuryceh [Mass/Vol]10.1 mg/dLNormal8.6-10.4Quest DiagnosticsComment on above:Performed By: #### 91016, 867 #### [facility] [address], [address] [place] [address] [employer]: Matt Beasley MDChloride [Moles/Vol]103 mmol/QDbptku30-034 Quest DiagnosticsComment on above:Performed By: #### 97242, 867 #### [facility] [place] [address] [employer]: Matt Beasley MDCO2 [Moles/Vol]28 mmol/HLtcqud91-73Wesgi DiagnosticsComment on above:Performed By: #### 14190, 867 #### [facility] [place] [address] [employer]: Matt MCCORMICKreatinine [Mass/Vol]1.29 mg/dLHigh0.60-0.88 Quest DiagnosticsComment on above:Result Comment: For patients >49 years of age, the reference limit for Creatinine is approximately 13% higher for people identified as -Trinidadian.Performed By: #### 64514, 867 #### [facility] [place] [address] [employer]: Matt Beasley MDeGFR NON-AFR. CTDBUZGC72 mL/min/1.71c9Jdp> OR = 60Quest DiagnosticsComment on above:Performed By: #### 21833, 867 #### [facility] [place] [address] [employer]: Matt Beasley MDGFR/1.73 sq M.predicted among blacks MDRD (S/P/Bld) [Vol rate/Area]44 mL/min/{1.73_m2}Low> OR = 60Quest DiagnosticsComment on above:Performed By: #### 73555, 867 #### [facility] [address], [address] [place] [address] [employer]: Matt Beasley MDGlucose [Mass/Vol]107 mg/fPYxik13-08Jkjus DiagnosticsComment on above:Result Comment: Fasting reference interval For someone without known diabetes, a glucose value between 100 and 125 mg/dL is consistent with prediabetes and should be confirmed with a follow-up test.Performed By: #### 03367, 867 #### [facility] [address] [place] [address] [employer]: Matt Beasley MDPotassium [Moles/Vol]4.1 mmol/LNormal3.5-5.3 Quest DiagnosticsComment on above:Performed By: #### 82423, 867 #### [facility] of [address], [address] [place] [address] [employer]: Matt Beasley MDSodium [Moles/Vol]139 mmol/BNydbqh837-698Igxag DiagnosticsComment on above:Performed By: #### 98771, 867 #### [facility] of [address], [address] [place] [address] [employer]: Matt Beasley MDUrea nitrogen [Mass/Vol]30 mg/dLHigh7-25Quest DiagnosticsComment on above:Performed By: #### 79546, 867 #### [facility] of [address], [address] [place] [address] [employer]: Matt Beasley MDUrea nitrogen/Creatinine [Mass ratio]23 mg/mg High6-22Quest DiagnosticsComment on above:Performed By: #### 42778, 867 #### [facility] of [address], [address] [place] [address] [employer]: Matt Beasley MDT4 (THYROXINE), TOTALon 88-74-5059U5 [Mass/Vol]7.8 ug/dLNormal5.1-11.9Quest DiagnosticsComment on above:Performed By: #### 07216, 867 #### [facility] of [address], [address] [place] [address] [employer]: Matt BREWSTERn 74-38-8365LGN Qn7.48 m[IU]/LHigh 0.40-4.50Quest DiagnosticsComment on above:Performed By: #### 14961, 867 #### [facility] of [address], [address] [place] [address] [employer]: Matt CHANG 125on 49-61-2735MZ 60797 U/mLNormal<38[facility] HospitalComment on above:Performed By: #### CA125 #### [employer] [address] [place] [address] Licensed Nuclear Control Room Operator: Andrew Blakely, [facility] 125Ordered By: Anabel Duncan on 26-54-0434IH 77194 U/mL<38[facility] Work Phone: [facility] Work Phone: Microscopic UrinalysisOrdered By: Anabel Duncan on 09-26-2021-[facility] HospitalWu[facility] Work Phone: amorphous, UANOT REPORTEDNoneMer[facility] Work Phone: bacteria, UANOT REPORTEDNoneMer[facility] Health Work Phone: casts UANOT REPORTEDMercy Health Work Phone: crystals, UANOT REPORTEDNone /HPFMercy Health Work Phone: epithelial Cells UA0 TO 2[facility] Work Phone: Mucus, UANOT REPORTEDNoneMer[facility] Work Phone: Other Observations UANOT REPORTEDNOT REQ.[facility] Work Phone: rBC, UA2 TO 5[facility] Work Phone: comment on above:Reference range defined for non- centrifuged specimen.Renal Epithelial, UANOT REPORTED0 /HPFMercy Health Work Phone: Trichomonas, UANOT REPORTEDNoneMer[facility] Work Phone: WBC, UA0 TO 2[facility] Work Phone: Yeast, UANOT REPORTEDNoneMer[facility] Work Phone: [facility] Work Phone: UA w/Reflex Cultureon 58-70-4409Csfxnmucj, SemiQt,Ur NegativeNormalNEGMercy Bellwood General HospitalComment on above:Performed By: #### UAX, UMICAO #### [facility] [address] [place] [address] Licensed Nuclear Control Room Operator: Andrew Blakely MDBlood, UrineNegativeNormalNEGMerChildren's Hospital Los AngelesComment on above:Performed By: #### UAX, UMICAO #### [facility] [address] [place] [address] Licensed Nuclear Control Room Operator: ANNY Araizalarity (U)ClearNormalCLEARMerChildren's Hospital Los AngelesComment on above:Performed By: #### FRANCESCA, UMICAO #### [facility] [address] [place] [address] Licensed Nuclear Control Room Operator: ANNY Araizaolor (U)YellowNormalYELMerChildren's Hospital Los AngelesComment on above:Performed By: #### UAX, UMICAO #### [facility] [address] [place] [address] Licensed Nuclear Control Room Operator: Andrew Blakely MDGlucose Ql (U)NegativeNormalNEGMerChildren's Hospital Los AngelesComment on above:Performed By: #### UAChelo, UMICAO #### [facility] [address] [place] [address] Licensed Nuclear Control Room Operator: Andrew Blakely MDKetones Ql (U)NegativeNormalNEGMercy Bellwood General HospitalComment on above:Performed By: #### UAX, UMICAO #### [facility] [address] [place] [address] Licensed Nuclear Control Room Operator: Andrew Blakely MDLeukocyte esterase Test strip Ql (U)TRACE AbnormalNEGMerChildren's Hospital Los AngelesComment on above:Performed By: #### UAX, UMICAO #### [facility] [address] [place] [address] Licensed Nuclear Control Room Operator: Petty Araizatrite,UrNegativeNormalNEGMercy Bellwood General HospitalComment on above:Performed By: #### UAX, UMBARB #### [facility] [address] [place] [address] Licensed Nuclear Control Room Operator: SILVANO Araiza,Ur7.5Irvwtb3.0-8.0[facility] HospitalComment on above:Performed By: #### UAX, UMICAO #### [facility] [address] [place] [address] Licensed Nuclear Control Room Operator: Rosalee Araiza Ql (U)NegativeNormalNEGCleveland Clinic South Pointe HospitalComment on above:Performed By: #### CALVIN MA #### [facility] [address] [place] [address] Licensed Nuclear Control Room Operator: GAURANG Araizapec. Friant,Ur1.028Kjghjc2.005-1.030[facility] HospitalComment on above:Performed By: #### CALVIN MA #### [facility] [address] [place] [address] Licensed Nuclear Control Room Operator: Jerel Araiza,UrNormalNormalNORMCleveland Clinic South Pointe HospitalComment on above:Performed By: #### FRANCESCA, UMICANaheed #### [facility] [address] [place] [address] Licensed Nuclear Control Room Operator: Bony AraizaNOT REPORTEDNormalCleveland Clinic South Pointe HospitalComment on above:Performed By: #### UAChelo, UMICANaheed #### [facility] [address] [place] [address] Licensed Nuclear Control Room Operator: Andrew Blakely MDUrinalysis Reflex to CultureOrdered By: Anabel Duncan on 89-82-9159Slwearcjg UrineNegativeNEGATIVESycamore Medical Center Health Work Phone: color, UAYellowYellowMercy Health Work Phone: Glucose, UrNegativeNEGATIVEMercy Health Work Phone: Interpretation and review of laboratory results AbnormalMercy Health Work Phone: Ketones Ql (U)NegativeNEGATIVEMercy Health Work Phone: leukocyte esterase Test strip Ql (U)TRACEAbnormal NEGATIVEMer Health Work Phone: Nitrite, UrineNegativeNEGATIVEMercy Health Work Phone: pH, UA7.0[facility] Work Phone: protein, UANegativeNEGATIVEMercy Health Work Phone: specific Friant, UA1.015[facility] Work Phone: Turbidity UAClearClearMer Health Work Phone: Urinalysis CommentsNOT REPORTEDMer Health Work Phone: Urine HgbNegativeNEGATIVEMer Health Work Phone: Urobilinogen, UrineNormalNormalMercy Health Work Phone: [facility] Work Phone: Urinalysis,Microon 09-26-2021-----NormalCleveland Clinic South Pointe HospitalComment on above:Performed By: #### UAX, UMICAO #### [facility] [address] [place], [place] [id number] Licensed Nuclear Control Room Operator: Andrew Blakely MDEpithelial cells LM Ql (Urine sed)0 TO 2Normal 0-5[facility] HospitalComment on above:Performed By: #### UAX, UMICAO #### [facility] [address] [place], [place] [id number] Licensed Nuclear Control Room Operator: AndrewAlly Ramsey RBC's2 TO 4Zgclqh8-9HbwheCleveland Clinic South Pointe HospitalComment on above:Result Comment: Reference range defined for non- centrifuged specimen.Performed By: #### ESTEFANY MAO #### [facility] [address] [place] [address] Licensed Nuclear Control Room Operator: Ally Araiza WBC's0 TO 8Aacred9-2EchggCleveland Clinic South Pointe HospitalComment on above:Performed By: #### FRANCESCA UMICAO #### [facility] [address] [place] [address] Licensed Nuclear Control Room Operator: Sma Araiza sediment LM Ql (Urine sed)NOT REPORTED NormalSycamore Medical CenterComment on above:Performed By: #### FRANCESCA UMICAO #### [facility] [address] [place] [address] Licensed Nuclear Control Room Operator: Andrew Blakely MDBacteriaNOT REPORTEDNormalNONEMeSan Dimas Community HospitalComment on above:Performed By: #### FRANCESCA UMICAO #### [facility] [address] [place] [address] Licensed Nuclear Control Room Operator: ANNY AraizaastsNOT REPORTEDNormal0-8[facility] HospitalComment on above:Performed By: #### FRANCESCA, UMICAO #### [facility] [address] [place] [address] Licensed Nuclear Control Room Operator: ANNY Araizarystals LM Nom (Urine sed)NOT REPORTEDNormal NONECleveland Clinic South Pointe HospitalComment on above:Performed By: #### UAX, UMICAO #### [facility] [address] [place] [address] Licensed Nuclear Control Room Operator: Andrew Blakely MDEpithelial, RenalNOT SRRBUANPRvvvdl1SqzzqCleveland Clinic South Pointe HospitalComment on above:Performed By: #### UAChelo, UMICAO #### [facility] [address] [place] [address] Licensed Nuclear Control Room Operator: Jamie Araizaus StrandsNOT REPORTEDrmGalion HospitalComment on above:Performed By: #### UAX, UMICAO #### [facility] [address] [place] [address] Licensed Nuclear Control Room Operator: Reg Araiza ObservationsNOT REPORTEDNormalNREQCleveland Clinic South Pointe HospitalComment on above:Performed By: #### UAX, UMICAO #### [facility] [address] [place] [address] Licensed Nuclear Control Room Operator: Kota AraizaonasFAY REPORTEDPremier Health Atrium Medical CenterComment on above:Performed By: #### FRANCESCA, UMICAO #### [facility] [address] [place] [address] Licensed Nuclear Control Room Operator: He AraizaastFAY REPORTEDPremier Health Atrium Medical CenterComment on above:Performed By: #### UAChelo, UMICANaheed #### [facility] [address] [place] [address] Licensed Nuclear Control Room Operator: ANNY AraizaOMPREHENSIVE METABOLIC PANELon 07-27-2021 Albumin [Mass/Vol]4.4 g/dLNormal3.6-5.1Quest DiagnosticsComment on above: Performed By: #### 08702, 867 #### [facility] [address] [address] [employer]: Matt Beasley MDAlbumin/Globulin [Mass ratio]1.8 {ratio}Normal 1.0-2.5Quest DiagnosticsComment on above:Performed By: #### 65505, 867 #### [facility] [address], [address] [place] [address] [employer]: Matt Beasley MDALP [Catalytic activity/Vol]67 U/IWvteff46-985 [facility] DiagnosticsComment on above:Performed By: #### 94035, 867 #### [facility] of [place] [address] [employer]: Matt Beasley MDALT [Catalytic activity/Vol]10 U/LNormal6-29 [facility] DiagnosticsComment on above:Performed By: #### 33963, 867 #### [facility] of [address], [address] [place] [address] [employer]: Matt Beasley MDAST [Catalytic activity/Vol]17 U/EFbbjcw30-29 [facility] DiagnosticsComment on above:Performed By: #### 07461, 867 #### [facility] of [place] [address] [employer]: Matt Beasley MDBilirubin [Mass/Vol]0.4 mg/dLNormal0.2-1.2 Quest DiagnosticsComment on above:Performed By: #### 68990, 867 #### [facility] of [place] [address] [employer]: Matt Beasley MDCalcium [Mass/Vol]9.8 mg/dLNormal8.6-10.4Quest DiagnosticsComment on above:Performed By: #### 31318, 867 #### [facility] of [place] [address] [employer]: Matt Beasley MDChloride [Moles/Vol]104 mmol/WVakote16-833 [facility] DiagnosticsComment on above:Performed By: #### 36499, 867 #### [facility] of [place] [address] [employer]: Matt Beasley MDCO2 [Moles/Vol]25 mmol/TDhnhec30-69Uokvx DiagnosticsComment on above:Performed By: #### [id number], 867 #### [facility] [place] [address] [employer]: Matt MCCORMICKreatinine [Mass/Vol]1.37 mg/dLHigh0.60-0.88 [facility] DiagnosticsComment on above:Result Comment: For patients >49 years of age, the reference limit for Creatinine is approximately 13% higher for people identified as -Trinidadian.Performed By: #### 16596, 867 #### [facility] [address], [address] [place] [address] [employer]: Matt Beasley MDeGFR NON-AFR. CPMBXTEW14 mL/min/1.26g5Oaw> OR = 60Quest DiagnosticsComment on above:Performed By: #### 93159, 867 #### [facility] [address], [address] [place] [address] [employer]: Matt Beasley MDGFR/1.73 sq M.predicted among blacks MDRD (S/P/Bld) [Vol rate/Area]41 mL/min/{1.73_m2}Low> OR = 60Quest DiagnosticsComment on above:Performed By: #### 16062, 867 #### [facility] [address], [address] [place] [address] [employer]: Matt Beasley MDGlobulin (S) [Mass/Vol]2.5 g/dLNormal1.9-3.7 [facility] DiagnosticsComment on above:Performed By: #### 80858, 867 #### [facility] [address], [address] [place] [address] [employer]: Matt Beasley MDGlucose [Mass/Vol]97 mg/mPTwzhjs51-94Hiotj DiagnosticsComment on above:Result Comment: Fasting reference intervalPerformed By: #### 70218, 867 #### [facility] [address], [address] [place] [address] [employer]: Matt Beasley MDPotassium [Moles/Vol]5.3 mmol/LNormal3.5-5.3 [facility] DiagnosticsComment on above:Performed By: #### 44929, 867 #### [facility] of [address], [address] [place] [address] [employer]: Matt Beasley MDProtein [Mass/Vol]6.9 g/dLNormal6.1-8.1Quest DiagnosticsComment on above:Performed By: #### 90239, 867 #### [facility] of [address], [address] [place] [address] [employer]: Matt Beasley MDSodium [Moles/Vol]137 mmol/SWurvdk004-435Mypxk DiagnosticsComment on above:Performed By: #### 67762, 867 #### [facility] [place] [address] [employer]: Matt Beasley MDUrea nitrogen [Mass/Vol]25 mg/dLNormal7-25 [facility] DiagnosticsComment on above:Performed By: #### 29409, 867 #### [facility] [place] [address] [employer]: Matt Beasley MDUrea nitrogen/Creatinine [Mass ratio]18 mg/mg Normal6-22Quest DiagnosticsComment on above:Performed By: #### 94903, 867 #### [facility] [place] [address] [employer]: Matt Beasley MDLIPID PANEL, STANDARDon 22-38-3171Vbrvqcsfrkq [Mass/Vol]159 mg/dLNormal<200Quest DiagnosticsComment on above:Performed By: #### 34991, 867 #### [facility] [place] [address] [employer]: Matt Beasley MDCholesterol in HDL [Mass/Vol]63 mg/dLNormal> OR = 50Quest DiagnosticsComment on above:Performed By: #### 53928, 867 #### [facility] [place] [address] [employer]: Matt Beasley MDCholesterol in LDL [Mass/Vol]73 mg/dLNormal [facility] DiagnosticsComment on above:Result Comment: Reference range: <100 Desirable range <100 mg/dL for primary prevention; <70 mg/dL for patients with CHD or diabetic patients with > or = 2 CHD risk factors. LDL-C is now calculated using the Hollis calculation, which is a validated novel method providing better accuracy than the Friedewald equation in the estimation of LDL-C. Sawyer SS et al. TORY. 2013;310(19): 6573-7856 (http://education.[employer]/faq/NLZ416)Performed By: #### 40989, 867 #### [facility] [place] [address] [employer]: Matt MCCORMICKholesteroabby.total/Cholesterol in HDL [Mass ratio]2.5 {ratio}Normal<5.0Quest DiagnosticsComment on above:Performed By: #### 08458, 867 #### [facility] [place] [address] [employer]: Matt FOWLER HDL ZFAILCGVPEN33 mg/dL (calc)Normal<130 [facility] DiagnosticsComment on above:Result Comment: For patients with diabetes plus 1 major ASCVD risk factor, treating to a non-HDL-C goal of <100 mg/dL (LDL-C of <70 mg/dL) is considered a therapeutic option.Performed By: #### 38204, 867 #### [facility] [place] [address] [employer]: Matt Beasley MDTriglyceride [Mass/Vol]156 mg/dLHigh<150Quest DiagnosticsComment on above:Performed By: #### 87976, 867 #### [facility] [place] [address] [employer]: Matt BALLARD w/Reflex Cultureon 79-94-6186Cvhyisoxs, SemiQt,UrNegativeNormalNEGMercy Bellwood General HospitalComment on above: Performed By: #### UAX, UMICAO #### [facility] [address] [place] [address] Licensed Nuclear Control Room Operator: Yamileth Araiza, UrineNegativeNormalNEGCleveland Clinic South Pointe HospitalComment on above:Performed By: #### UAX, UMICAO #### [facility] [address] [place] [address] Licensed Nuclear Control Room Operator: ANNY Araizalarity (U)CLEARNormalCLEARMerChildren's Hospital Los AngelesComment on above:Performed By: #### UAX, UMICAO #### [facility] [address] [place] [address] Licensed Nuclear Control Room Operator: ANNY Araizaolor (U)YELLOWNormalYELMerChildren's Hospital Los AngelesComment on above:Performed By: #### FRANCESCA, UMICAO #### [facility] [address] [place] [address] Licensed Nuclear Control Room Operator: Andrew Blakely MDGlucose Ql (U)NegativeNormalNEGMerChildren's Hospital Los AngelesComment on above:Performed By: #### UAChelo, UMICAO #### [facility] [address] [place] [address] Licensed Nuclear Control Room Operator: Andrew Blakely MDKetones Ql (U)NegativeNormalNEGMerChildren's Hospital Los AngelesComment on above:Performed By: #### UAX, UMICAO #### [facility] [address] [place] [address] Licensed Nuclear Control Room Operator: Andrew Blakely MDLeukocyte esterase Test strip Ql (U)MODERATE AbnormalNEGMercy Bellwood General HospitalComment on above:Performed By: #### UAX, UMICAO #### [facility] [address] [place] [address] Licensed Nuclear Control Room Operator: Bret Araizaite,UrNegativeNormalNEGCleveland Clinic South Pointe HospitalComment on above:Performed By: #### UAX, UMICAO #### [facility] [address] [place] [address] Licensed Nuclear Control Room Operator: SILVANO Araiza,Ur6.6Liojtb2.0-8.0C[facility] South Pointe HospitalComment on above:Performed By: #### UAX, UMICAO #### [facility] [address] [place] [address] Licensed Nuclear Control Room Operator: SILVANO Araizahoboken university medical center Ql (U)NegativeNormalNEGCleveland Clinic South Pointe HospitalComment on above:Performed By: #### UAChelo, UMICAO #### [facility] [address] [place] [address] Licensed Nuclear Control Room Operator: GAURANG Araizapec. Friant,Ur1.029Zcnier7.005-1.030C[facility] South Pointe HospitalComment on above:Performed By: #### UAChelo, UMICAO #### [facility] [address] [place] [address] Licensed Nuclear Control Room Operator: Jerel AraizaUrNormalNormalNORMCleveland Clinic South Pointe HospitalComment on above:Performed By: #### UAChelo, UMICAO #### [facility] [address] [place] [address] Licensed Nuclear Control Room Operator: Denny Araiza REPORTEDNormalCleveland Clinic South Pointe HospitalComment on above:Performed By: #### UAX, UMICAO #### [facility] [address] [place] [address] Licensed Nuclear Control Room Operator: Naheed Araiza,Microon 07-19-2021-----NormalCleveland Clinic South Pointe HospitalComment on above:Performed By: #### UAX, UMICAO #### [facility] [address] [place] [phone] Licensed Nuclear Control Room Operator: Andrew Blakely MDBacteriaMANYAbnormalNONEMeSan Dimas Community HospitalComment on above:Performed By: #### FRANCESCA, UMJUAN ANTONIOO #### [facility] [address] [place] [address] Licensed Nuclear Control Room Operator: Andrew Blakely MDEpithelial cells LM Ql (Urine sed)0 TO 2Normal 0-5C[facility] Pointe HospitalComment on above:Performed By: #### FRANCESCA, UMICAO #### [facility] [address] [place] [address] Licensed Nuclear Control Room Operator: Andrew Blakely MDUrine RBC's0 TO 7Vhuenv7-4Mljth [facility] HospitalComment on above:Performed By: #### FRANCESCA UMICAO #### [facility] [address] [place] [address] Licensed Nuclear Control Room Operator: Ally Araiza WBC's2 TO 6Dwxtgo9-1RyexgCleveland Clinic South Pointe HospitalComment on above:Performed By: #### FRANCESCA UMICAO #### [facility] [address] [place] [address] Licensed Nuclear Control Room Operator: Andrew Blakely MDAmorphoukarma sediment LM Ql (Urine sed)NOT REPORTED NormalNONEMeSan Dimas Community HospitalComment on above:Performed By: #### FRANCESCA UMICAO #### [facility] [address] [place] [address] Licensed Nuclear Control Room Operator: ANNY AraizaastsNOT REPORTEDNormal0-2[facility] HospitalComment on above:Performed By: #### FRANCESCA, UMICAO #### [facility] [address] [place] [address] Licensed Nuclear Control Room Operator: ANNY Araizarystals LM Nom (Urine sed)NOT REPORTEDNormal NONEMerChildren's Hospital Los AngelesComment on above:Performed By: #### FRANCESCA UMICAO #### [facility] [address] [place] [address] Licensed Nuclear Control Room Operator: Andrew Blakely MDEpithelial, RenalNOT QSZWWQQSRpnhiy9RceklCleveland Clinic South Pointe HospitalComment on above:Performed By: #### UAX, UMICAO #### [facility] [address] [place] [address] Licensed Nuclear Control Room Operator: RUBEN Araizaucus StrandsNOT REPORTEDNormalNONEMeSan Dimas Community HospitalComment on above:Performed By: #### UAX, UMICAO #### [facility] [address] [place] [address] Licensed Nuclear Control Room Operator: Andrew Blakely MDOther ObservationsNOT REPORTEDNormalNRSumma HealthComment on above:Performed By: #### FRANCESCA, UMICAO #### [facility] [address] [place] [address] Licensed Nuclear Control Room Operator: Andrew Blakely MDTrichomonasNOT REPORTEDrmalSycamore Medical CenterComment on above:Performed By: #### FRANCESCA, UMICAO #### [facility] [address] [place] [address] Licensed Nuclear Control Room Operator: Andrew Blakely MDYeastNOT REPORTEDrmalSycamore Medical CenterComment on above:Performed By: #### FRANCESCA, UMICAO #### [facility] [address] [place] [address] Licensed Nuclear Control Room Operator: Andrew Blakely MD Vital Signs Date TimeVital SignValuePerforming GicwmukbvJdvpgvfq15-82-2682 13:29-0400Body qfrbxi359.7 cmChristcarmina Bethea HAND COMPOSITOR Work Phone: [facility] BransonVhxernrulj86-45-8136 13:29-0400Body mass index (BMI) [Ratio]27.89 kg/x5Ckvbgqnbob Bethea HAND COMPOSITOR Work Phone: [facility] BransonHalzswvwhx98-59-1534 13:290400Body .43 kgChjill Turciostrick HAND COMPOSITOR Work Phone: [facility] BransonQuzsljhpzq29-07-9336 13:29Diastolic blood juqbblsg09 mm[Hg]Soraida Turciostrick HAND COMPOSITOR Work Phone: [facility] BransonGhrumqgwbt46-47-3814 13:29Heart rate83 /min Soraida Turciostrick HAND COMPOSITOR Work Phone: [phone] BransonEqzglcytfo80-28-1052 13:299519OoG2% (BldA) [Mass fraction]96 %Soraida Turciostrick HAND COMPOSITOR Work Phone: [facility]ansonCbzexpevgo37-35-6701 13:Systolic blood njwxegbu276 mm[Hg]Soraida Turciostrick HAND COMPOSITOR Work Phone: [facility] BransonIzatmjktzy45-26-0232 11:33-0400Body baokvg217.86 [facility]Kn[facility] 11:33-0400Body mass index (BMI) [Ratio]24.4 kg/d6JvklibbhcKnox Community Hospital06-10-2025 11:33-0400Body .88 kgKn[facility]06-10-2025 11:33-0400Diastolic blood xhbuqiqq78 mm[Hg][facility]06-10-2025 11:33-0400 Heart rate63 /[facility]06-10-2025 11:33-0400 Respiratory rate16 /[facility]06-10-2025 11:33-0400 SaO2% (BldA) [Mass fraction]98 %[facility]06-10-2025 11:33-0400Systolic blood qagxuujy763 mm[Hg][facility] 01-31-2025 10:33-0500Body ilryhc355.7 cmChrmiguel Turciostrick HAND COMPOSITOR Work Phone: [facility]ansonJjvllswwxu31-12-0285 10:33-0500Body mass index (BMI) [Ratio]27.66 kg/u9Bbubuci Bethea HAND COMPOSITOR Work Phone: [facility]ansonKdaozvgkbg87-25-1318 10:33-0500Body temperature 97.11 [degF]Soraida Singhpatrick HAND COMPOSITOR Work Phone: [facility]ansonSbkvvogtep32-11-7273 10:33-0500Body flffra83.98 kgChrisbob SinghBethea HAND COMPOSITOR Work Phone: [facility]ansonJamjyiqlpg76-59-8658 10:33-0500Diastolic blood yhgeylgq21 mm[Hg]Soraida Bethea HAND COMPOSITOR Work Phone: [facility]ansonZfisxlcdus64-18-4559 10:33-0500Systolic blood ynezismn616 mm[Hg]Soraida Bethea HAND COMPOSITOR Work Phone: [phone] BransonBuzcrsdfzd60-68-5933 10:04-0500Body mass index (BMI) [Ratio]24.64 kg/x2Udkllfz Bethea HAND COMPOSITOR Work Phone: [phone] BransonMigsvfcylb13-53-0175 10:04-0500Body temperature 97.11 [degF]Soraida Turciostrick HAND COMPOSITOR Work Phone: [facility]ansonGamgzpucym16-78-7497 10:04-0500Body emanes69.34 kgChrisbob TurciosBethea HAND COMPOSITOR Work Phone: [facility] BransonZqyefmceti13-07-7018 10:04-0500Diastolic blood mm[Hg]Soraida Singhpatrick HAND COMPOSITOR Work Phone: [phone] BransonWdoupwcfwy20-45-1277 10:04-0500Systolic blood ppauwfxe425 mm[Hg]Soraida Singhpatrick HAND COMPOSITOR Work Phone: [facility] BransonHmkrlnsppk16-38-0752 11:00-0400Body qydmnb370.86 Linda Bonner Other [employer] Other 563212-37-0508 11:00-0400Body mass index (BMI) [Ratio] 26.17 kg/m2Albin Bonner Other [facility] [employer] Other 08-08-2023 11:00-0400Body qewlarxqanu39.5 [degF]Albin Englands Other [employer] Other 08-08-2023 11:00-0400Body hkfxda40.79 kgAzjulio Tomáss Other [employer] Other 610828-09-6696 11:00-0400Diastolic blood eiucdlso87 mm[Hg] Azjulio Tomáss Other [employer] Other 016424-81-5361 11:00-0400Respiratory rate18 /minAlbin Erazorobertkarma Other [employer] Other 08-08-2023 11:00-8222KeX5% (BldA) [Mass fraction]96 % Albin Englandkarma Other [employer] Other 08-08-2023 11:00-0400Systolic blood xgpzgczy545 mm[Hg] Fabiojulio Tomáss Other [employer] Other 02-21-2023 11:20-0500Body sodope653.86 cmAziz Kaceyrobertkarma Other [employer] Other 02-21-2023 11:20-0500Body mass index (BMI) [Ratio] 25.85 kg/m2Azjulio Englands Other [employer] Other 02-21-2023 11:20-0500Body .06 kgAzjulio Englands Other [employer] Other 02-21-2023 11:20-0500Diastolic blood znyhgglr54 mm[Hg] Azjulio Englands Other [employer] Other 02-21-2023 11:20-0500Respiratory rate18 /minAlbin Tomáss Other [employer] Other 02-21-2023 11:20-9724IrJ3% (BldA) [Mass fraction]98 % Azjulio Englands Other [employer] Other 02-21-2023 11:20-0500Systolic blood bhfylfek397 mm[Hg] Azjulio Tomáss Other [employer] Other 10-18-2022 15:40-0400Body .86 cmAzidevin Bonner Other [employer] Other 10-18-2022 15:40-0400Body mass index (BMI) [Ratio]24.6 kg/m2Albin Tomáss Other [employer] Other 10-18-2022 15:40-0400Body kisscdwjema64.1 [degF]Fabiojulio Kailey Other [employer] Other 10-18-2022 15:40-0400Body bjkxee63.25 kgAzjulio Tomáss Other [employer] Other 10-18-2022 15:40-0400Diastolic blood umhhftcj92 mm[Hg] Azjulio Tomáss Other [employer] Other 10-18-2022 15:40-0400Respiratory rate18 /minAziz Bakroberts Other [employer] Other 10-18-2022 15:40-1462ZfD0% (BldA) [Mass fraction]99 % Azjulio Englands Other [facility] [employer] Other 10-18-2022 15:40-0400Systolic blood ozrgjwyz013 mm[Hg] Aziz Bakroberts Other [employer] Other 05-24-2022 15:40-0400Body vnivdf409.86 cmAzidevin Englands Other [employer] Other 05-24-2022 15:40-0400Body mass index (BMI) [Ratio] 22.94 kg/m2Azjulio Englands Other [employer] Other 05-24-2022 15:40-0400Body addjgebgwsj26.4 [degF]Azjulio Englands Other [employer] Other 05-24-2022 15:40-0400Body flbrwo88.53 kgAzjulio Englands Other [employer] Other 05-24-2022 15:40-0400Diastolic blood kvfiojwh10 mm[Hg] Aziz Bakroberts Other [employer] Other 05-24-2022 15:40-0400Respiratory rate18 /minAziz Bakhous Other [employer] Other 05-24-2022 15:40-4008DfK7% (BldA) [Mass fraction]99 % Albin Bonner Other [facility] [employer] Other 598911-75-4154 15:40-0400Systolic blood yxzjmxcg566 mm[Hg] Albin Bonner Other [facility] [employer] Other Encounters Encounter DateEncounter TypeCare ProviderFacilityStart: 10-13-2025 End: 86-35-8189udqvuuzqcaYDUTDZZ [facility] Avontart: 11-52-2775Nuqnxhqntu and management of inpatientBARBARA YEARChildren's Hospital for Rehabilitationtart: 94-93-7751Ukdjqgqbtc and management of inpatient CORWIN [facility]: 99-19-4652Taejfxfkvc and management of inpatientGEORGE [facility] Start: 95-40-0149Qtsmuvpewu and management of inpatientCONNIE [facility]: 10-04-2025 End: 80-86-8714Yubywufiny and management of inpatientCONNIE [facility]: 10-04-2025 End: 97-23-7971Rhwibrubup and management of inpatientGEORGE [facility]: 78-14-0420zelrokjrwhROIIYL [facility]art: 09-19-2025 End: 32-68-3820obfgmjapniYUGBPM [facility]art: 20-76-8884nardtskbgmUJNTTPMercy Health [facility] Hospitaltart: 09-15-2025 End: 10-45-7500wqzsnujijtJOYOSISCCI [facility] Start: 09-06-2025 End: 55-95-4487wvugtlmsbvNCTSZFUniversity Hospitals [facility] Start: 08-22-2025 End: 20-62-5702apqronhyndZXLCSW [facility] Start: 08-02-2025 End: 05-78-8545Qqvbey flowsheetChristy A Bethea HAND COMPOSITOR Work Phone: noms [facility] MedicineStart: 08-02-2025 End: 95-27-2384Geyxlv flowsheetChristy A Bethea HAND COMPOSITOR Work Phone: noms [facility] MedicineStart: 08-02-2025 End: 18-86-5747Xyumrc outpatient visit 25 minutesChristy A Bethea HAND COMPOSITOR Work Phone: noms [facility] MedicineComment on above:Type 2 diabetes mellitus with chronic kidney disease, without long-term current use of insulin, unspecified CKD stage (HCC) (Primary Dx); Essential hypertension ; Longstanding persistent atrial fibrillation (HCC); Type 2 diabetes mellitus with diabetic peripheral angiopathy without gangrene, without long-term current use of insulin (HCC); Mitral valve stenosis and regurgitationStart: 08-02-2025 End: 91-23-3281yzhghekamrFKLRGAU A FITZPATRICKNot AvailableStart: 06-01-2025 End: 30-78-1012JaqxhpSsiuvfm A Bethea HAND COMPOSITOR Work Phone: noms FNR FMComment on above:Mixed hyperlipidemiaStart: 05-16-2025 End: 79-78-9978tdoelexkegHQYNAY [facility] [place] Start: 05-10-2025 End: 50-72-9716ojmbgqynzwQwbujgcwkBrown [facility] Work Phone: Start: 05-10-2025 End: 48-48-5329Caecoen encounter procedureCarepartners Rehabilitation Hospital [facility] Nephrology Chetan Work Phone: Start: 99-15-3963Pyc-patient / Non-visitCarepartners Rehabilitation Hospital Physician [facility] Work Phone: Start: 03-09-2025 End: 88-08-0097jzeseqypieZNYLUASamaritan Hospitaltart: 03-09-2025 End: 51-48-7796Nijpwuxzcr hospital visit by [facility] LABComment on above: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Start: 01-31-2025 End: 91-56-4628Tkfbot flowsheetChristy A Bethea HAND COMPOSITOR Work Phone: noms FNR FMStart: 01-31-2025 End: 62-34-8077Ussche flowsheetChristy A Bethea HAND COMPOSITOR Work Phone: noms FNR FMStart: 01-31-2025 End: 04-24-7165Wgzgakf encounter procedureChristy A Bethea HAND COMPOSITOR Work Phone: noms FNR FMComment on above:Encounter for annual wellness exam in Medicare patient [...] right ear with restricted hearing of left earStart: 01-31-2025 End: 09-39-5789dduaixgqacTMOARJL A FITZPATRICKNot AvailableStart: 01-17-2025 End: 42-25-0698Lqqpakvoo encounterRochelle Mclain NP Work Phone: NOOD SWS ORTHOComment on above:InjectionStart: 01-17-2025 End: 66-15-9869Jddbns outpatient visit 25 minutesRochelle Mclain NP Work Phone: NOPZ FB ORTHOPAEDICSComment on above:Impingement syndrome of left shoulder (Primary Dx); Arthritis of left acromioclavicular joint; Chronic left shoulder painStart: 01-17-2025 End: 99-40-5633xhmvupyqgqHIHIK T OLSENNot AvailableStart: 01-03-2025 End: 29-77-4134Okazgx flowsheetChristy A Bethea HAND COMPOSITOR Work Phone: NOYJ FNR FMStart: 01-03-2025 End: 71-01-6770Uqbksh flowsheetChristy A Bethea HAND COMPOSITOR Work Phone: NOLG FNR FMStart: 01-03-2025 End: 14-22-7836Mbafcv outpatient visit 25 minutesChristy A Bethea HAND COMPOSITOR Work Phone: NOKK FNR FMComment on above:Essential hypertension (CMS/HCC) (Primary Dx); Cerumen debris on tympanic membrane of both earsStart: 01-03-2025 End: 26-01-0518dyvddwhvxoADWLNVL A FITZPATRICKNot AvailableStart: 12-31-2024 End: 09-31-4293HeopdfNcyffmch Hohman MD Work Phone: NOUD FNR FMComment on above:Type 2 diabetes mellitus with chronic kidney disease, without long-term current use of insulin, unsp ecified CKD stage (CMS/HCC)Start: 11-17-2024 End: 74-86-8377Xnpziyw encounter procedureNoms [facility] - Ewelina Wilber CI AUDComment on above: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)Start: 11-17-2024 End: 03-55-0930hiksyatmfjXVSECAO FITZPATRICKNot AvailableStart: 11-10-2024 End: 03-92-1960txkzbzitojRNFRPVA [facility]ontart: 10-15-2024 End: 11-28-6685TzoeumDzqxl G Fredy DO Work Phone: NOMS FNR FMComment on above:Primary hypertension (CMS/HCC)Start: 10-01-2024 End: 08-56-1154KctnzjBysgb G Fredy DO Work Phone: NOMS FNR FMComment on above:Primary hypertension (CMS/HCC)Start: 09-08-2024 End: 23-60-3970wgsghoksybDRAOQJSamaritan Hospitaltart: 08-11-2024 End: 24-90-7633IfoeszSzacq G Fredy DO Work Phone: NOMS FNR FMComment on above:Mixed hyperlipidemia (CMS/HCC)Start: 07-31-2024 End: 80-02-8651BqhbvlHsbok G Fredy DO Work Phone: NOMS FNR FMComment on above:Primary hypertension (CMS/HCC)Start: 86-62-9935Pnxqkc flowsheetChristy A Bethea HAND COMPOSITOR Work Phone: NOMS FNR FMStart: 80-16-8890Qavpoe flowsheetChristy A Bethea HAND COMPOSITOR Work Phone: NOMS FNR FMStart: 72-08-1048Mcxrrxs encounter procedureChristy Bethea HAND COMPOSITOR Work Phone: NOMS HealthcareStart: 01-05-2024 End: 69-39-2084yhzexmozktSkpq Bakhous Other [facility] [employer] Other Start: 40-65-2893UyhujwHqbzb G Keefe DO Work Phone: NOYX FNR FMComment on above:Type 2 diabetes mellitus with chronic kidney disease, without long-term current use of insulin, unsp ecified CKD stage ([facility])Start: 37-90-1112Hxuscamfw encounterAziz BakrobertsFPG NephrologyStart: 09-10-2023 End: 39-62-9148ylccyekylcJvks Bakhous Other [employer] Other Start: 70-60-1111Zhifszowk encounterAziz BakhousFPG NephrologyStart: 07-08-2023 End: 49-42-8340xofvjpvdwyVipv Bakhous Other [employer] Other Start: 09-39-9167Pjqxzo outpatient visit 25 minutes Azjulio EnglandsFPG Nephrology ClydeStart: 03-17-2023 End: 67-12-0796yqlruskzatUFCPKHG TUCKERFacility:M7Ryxki: 03-12-2023 End: 90-12-2905eqgxlclrmsBPVTERF TUCKERFacility:M1Gzmbr: 03-10-2023 End: 82-75-3426uvgxqufozsER ONEL MOUKARBELFacility:N3Aaybw: 02-05-2023 End: 01-79-1500krdkoquvtfZJ DOCTOR MISCFacility:L4Jgjox: 01-24-2023 End: 09-47-8390Qqigfhhyak hospital visit by Jayne Maya MD Work Phone: mthz LaboratoryComment on above:History of ovarian cancerStart: 01-22-2023 End: 30-57-0405hxehhgowhrExmg Bakhous Other [employer] Other Start: 11-06-5981Gusskxxyp encounterAziz BakhousFPG NephrologyStart: 01-21-2023 End: 94-07-0933oyqoipiilrXoyf Bakhous Other [employer] Other Start: 23-91-3238Otsvwl outpatient visit 25 minutes [facility] Nephrology ClydeStart: 01-13-2023 End: 91-82-9399qksgmzqzyuCM DOCTOR MISCFacility:J4Jpgfk: 01-13-2023 End: 27-18-3381xjxsjgtuegOV DOCTOR MISCFacility:V3Mjbod: 11-08-2022 End: 03-54-4886tvgxjswhviVY ZACHARY G FURLONGFacility:B7Hqkvi: 09-17-2022 End: 77-59-0113xmyucyuszgPqhv Bakhous Other [employer] Other Start: 44-91-6454Vywwbo outpatient visit 25 minutes [facility] Nephrology ClydeStart: 09-10-2022 End: 10-84-4790xpnfgnqjcnGC DOCTOR MISCFacility:O8Npgtb: 08-21-2022 End: 96-57-1685awdpvqhczjAXRMHGF BOESFacility:D2Gkatl: 07-10-2022 End: 61-25-1032Wlciqftlga hospital visit by Annemarie Boyle Work Phone: mthz LaboratoryComment on above: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Start: 06-05-2022 End: 78-26-6079rtcyapxnteQT ZACHARY G FURLONGFacility:V2Kmrnu: 05-29-2022 End: 80-97-6742eyxixlawleCZ ZACHARY G FURLONGFacility:G7Amqcz: 05-06-2022 End: 16-01-7748enwwbnusqmVM ZACHARY G FURLONGFacility:S4Ewusw: 04-23-2022 End: 22-05-4208etxybzaqkdSfac Bakhous Other [employer] Other Start: 18-85-3563Lspjof outpatient new 30 minutesAziz BakhousFPG NephrologyStart: 03-27-2022 End: 05-70-8814Gelwdlfjpr hospital visit by Annemarie Boyle Work Phone: mtHZ LaboratoryStart: 09-26-2021 End: 57-21-0529hhgkbzrnpdHYCT Abby [facility]ertart: 09-26-2021 End: 40-27-8696Iorldsrtdb hospital visit by Annemarie Boyle Work Phone: stVZ [place] PerrysburgComment on above:Borderline epithelial neoplasm of ovary; Gross hematuriaStart: 07-18-2021 End: 60-69-3617odiaycjyubWKHY Abby [facility] Centertart: 12-29-2018 End: 93-30-3681Kcdfyzw encounter procedureRenee Fredy DO Work Phone: [facility] Procedures DateProcedureProcedure DetailPerforming ClinicianStart: 18-52-5428Lnxfhc-up visitFollow-upMELINDA TUCKERStart: 48-24-4202Etrxzkgtjk glycosylated b6aThculwg A Neema HAND COMPOSITOR Work Phone: Start: 54-23-8137Cvupmeqlypm tumor antigen quantitative ca 125Alyssa Koleda PA-C Work Phone: Start: 85-95-2003Zvjldlrwzbrvxw aspir&/inj major jt/bursa w/o usGrant T Rayne HAND COMPOSITOR Work Phone: Start: 24-37-8650Faampdcopub tumor antigen quantitative ca 125Fide Torres DO Work Phone: Start: 36-71-4228Hmskcqcpuhd tumor antigen quantitative ca 125Alyssa Reyes PA-C Work Phone: Start: 96-90-1508Cmgmp metabolic panel calcium total Onel Wright MD Work Phone: Start: 77-80-6846Rpkrwtgnvq microscopic onlyAnabel Duncan MD Work Phone: Start: 37-48-8775Odhej dip stick/tablet rgnt auto w/o microscopyAnabel Duncan MD Work Phone: Start: 10-08-1756Lnsazzzrjak tumor antigen quantitative ca 125Eric Abby Duncan MD Work Phone: Plan of Treatment DateCare ActivityDetailAuthorStart: 86-71-0810ICmC/Tdap/Td vaccine (3 - Td or Tdap)DTaP/Tdap/Td vaccine (3 - Td or Tdap)[facility]: 03-03-2026Medicare Annual Wellness (AWV)Medicare Annual Wellness (AWV)[facility] HealthcareStart: 11-02-2025 End: 96-35-8154Yvfnyif encounter xnvixqxvm80/03/2025 10:30 AM EST Office Visit [facility] [address] [place] [phone] Dona Ayala NP [address] [place] [address] [facility] ERtart: 40-19-7520Uqqlqbymfk A1c measurementDiabetes: Hemoglobin T6ESAKR HealthcareStart: 08-02-2025 End: 86-85-4275Xdacfar encounter evmtdbarv69/02/2025 1:30 PM EDT Office Visit [facility] [address] [place] [phone] Soraida Bethea NP [address] [place] [address] ArrivedHCA Florida Citrus HospitalComment on above: ArrivedStart: 46-88-5821Xgiwvshix vaccinationInfluenza Vaccine (#1)[facility] HealthcareStart: 09-31-0071Injbt screening for proteinDiabetes: Urine Protein ScreeningSALT LAKE [facility] HealthcareStart: 52-18-9134Fsglcknox vaccinationInfluenza Vaccine (#1)[facility] HealthcareComment on above:Postponed from 08/01/2024 (Supply/Drug Shortage)Start: 82-38-0523Pcfegqkzrq A1c measurementDiabetes: Hemoglobin J0DCOZD HealthcareStart: 03-18-2025 End: 69-82-6909Swkfaxq encounter odpzzqkjm09/18/2025 10:30 AM EDT Office Visit [facility] [address] [place] [address] Iman Valenzuela PA-C [address] [facility] [address] [place] [address] 6[facility]fuGal[facility] OncologyComment on above:6mfuStart: 01-31-2025 End: 89-22-2014Mwgwsmufdv A1c/Hemoglobin.total in BloodHemoglobin A1c Lab Routine Type 2 diabetes mellitus with chronic kidney disease, without long-term current use of insulin, unspecified CKD stage ([facility]) Expected: 01/31/2025 (Approximate), Expires:01/31/2026NOWY HealthcareComment on above:Expected: 01/31/2025 (Approximate), Expires: 01/31/2026Start: 01-31-2025 End: 83-34-8493Zdxax 1996 panel - Serum or PlasmaLipid panel Lab Routine Encounter for annual wellness exam in Medicare patient Mixed hyperlipidemia ([facility]) Expected: 01/31/2025 (Approximate), Expires: 01/31/2026[facility] Work Phone: Comment on above:Expected: 01/31/2025 (Approximate), Expires: 01/31/2026Start: 01-31-2025 End: 90-66-9459GLD W/REFLEX TO FT4TSH W/REFLEX TO FT4 Lab Routine Encounter for annual wellness exam in Medicare patient Expected: 01/31/2025 (Approximate), Expires: 01/31/2026[facility] HealthcareComment on above:Expected: 01/31/2025 (Approximate), Expires: 01/31/2026Start: 01-31-2025 End: 51-75-7146Iuhvnew encounter procedureNOMS FNR FMComment on above:Arrived Start: 01-17-2025 End: 88-88-4650Pqkudwq encounter /17/2025 11:15 AM EST Office Visit [facility] [address] [facility] [place] [phone] Rochelle Mclain NP [address] [place] [address] [facility] ORTHOPAEDICSStart: 02-12-2025Medicare Annual Wellness (AWV)Medicare Annual Wellness (AWV)[facility] HealthcareStart: 01-03-2025 End: 62-76-9493Zyrpdpa encounter procedureNOMS FNR FMComment on above:Arrived Start: 97-63-3572Csgxtw Wellness Visit (Medicare Advantage)Annual Wellness Visit (Medicare Advantage)[facility] CenterStart: 52-70-8276XCCHY-19 Vaccine ( season)COVID-19 Vaccine ( season)[facility] CenterStart: 61-45-9805Nxwdlkmla vaccinationInfluenza Vaccine (#1)[facility] HealthcareStart: 03-17-2024 End: 02-26-4190Lkerclz encounter ntronozzk57/17/2024 1:00 PM EDT Office Visit [facility] [address] [place] [address] [place] [phone] [facility] AUDStart: 01-12-2024 End: 08-66-0444Agezdvv encounter hxtnyygxq98/12/2024 11:00 AM EST Office Visit [facility] [address] [place] [phone] Soraida Bethea NP [address] [place] [address] ArrivedNOMS FNR FMComment on above:ArrivedStart: 18-86-0527Oxldd screening for proteinDiabetes: Urine Protein ScreeningNOWY HealthcareStart: 21-71-8298Zdustawnws A1c measurementDiabetes: Hemoglobin V5PDYBI Healthcare Start: 01-31-2023 End: 82-33-5333Kewtaas encounter vgntlgebm61/03/2023 Office Visit Gynecologic Oncology Jam Warren MD [address] [facility] [address] [place] [address] [facility] On[facility] Start: 73-64-6057Enqowqmiqv measurementCreatinineUniversity Hospitals Ahuja Medical CenterStart: 01-05-2023 Potassium [Moles/volume] in Serum or PlasmaPotassiumSycamore Medical Center HealthStart: 32-03-6227Ihueslftv vaccinationUniversity Hospitals Ahuja Medical CenterStart: 07-17-2022 End: 73-88-4082Urpqcag encounter radszasje41/17/2022 Office Visit Gynecologic Oncology Jam Warren MD [address] [facility] [address] [place] [id number] [facility] Oncology Start: 87-04-0809Lmjpwacvj vaccinationFlu vaccine (#1)JOSÉ MIGUEL [employer] [facility] Start: 01-23-2022 End: 23-21-0909Lftbtlv encounter csozgcptt62/23/2022 Office Visit Gynecologic Oncology Anabel Duncan MD [address] [facility] [address] [place] [id number] [facility] SET[facility] OncologyStart: 01-02-2022 End: 06-26-1636Ytzaqaz encounter wnwtngydl38/02/2022 Office Visit Gynecologic Oncology Anabel Duncan MD [address] [facility] [address] [place] [address] [phone] [facility] OncologyStart: 93-11-8675Zihtljhrn vaccinationFlu vaccine (#1)[employer] Work Phone: start: 94-38-6374Vwezra Wellness Visit (AWV)Annual Wellness Visit (AWV)[facility] CenterStart: 76-17-8715Kpltrlovptpr 50+ years Vaccine (2 of 2 - PCV)Pneumococcal 50+ years Vaccine (2 of 2 - PCV)[facility] [email or web address] [facility] CenterStart: 70-74-9105Lrrfqmusxgya Vaccine: 65+ Years (2 - PCV)Pneumococcal Vaccine: 65+ Years (2 - PCV)[facility] HealthcareStart: 34-06-0163Ilupoijbjdwa Vaccine: 65+ Years (2 of 2 - PCV)Pneumococcal Vaccine: 65+ Years (2 of 2 - PCV) [facility]: 64-51-5439Pbshpqvmdlpj 65+ years Vaccine (1 of 1 - PPSV23) Pneumococcal 65+ years Vaccine (1 of 1 - PPSV23)[facility] [employer] [facility] Phone: start: 64-29-2955Bydjszgax for osteoporosisDEXA (modify frequency per FRAX score)[facility] CenterStart: 63-54-2402Hrpoxots Vaccine (1 of 2)Shingles Vaccine (1 of 2)[facility] CenterStart: 92-97-3479BPeT/Tdap/Td vaccine (1 - Tdap)DTaP/Tdap/Td vaccine (1 - Tdap)[facility] CenterStart: 1957 Urine screening for proteinDiabetes: Urine Protein ScreeningC[facility]anson Start: 38-56-0277MVBML-19 Vaccine (1)COVID-19 Vaccine (1)[facility] [employer] [facility] Phone: start: 50-68-0809Zicieljuol ScreenDepression Screen [facility]: 52-60-5526Sdaucfni screeningDiabetes: Retinopathy Screening [facility]Start: 59-68-5084Fpddr panelUniversity Hospitals Ahuja Medical CenterStart: 1944 Pneumococcal 65+ years Vaccine (1 - PCV)Pneumococcal 65+ years Vaccine (1 - PCV) [facility] CenterStart: 10-51-0344YJRBN-19 Vaccine (1)COVID-19 Vaccine (1)[facility] CenterStart: 07-46-8282SAUIG-19 Vaccine (#1)COVID-19 Vaccine (#1)[facility]art: 28-56-8842Cuxdsm Wellness Visit (AWV)Annual Wellness Visit (AWV)[facility]: 73-83-7633Jfsegmdyuc measurementCreatinine monitoringMartin Memorial Hospital Phone: start: 1938Medicare Annual Wellness (AWV) Medicare Annual Wellness (AWV)[facility] HealthcareStart: 83-32-7021Ebppviliu monitoringPotassium monitoringMercy Health Work Phone: renal function 2000 panel - Serum or PlasmaH[facility] Immunizations Immunization DateImmunizationNotesCare VcwyxxhwQdppqmgm25-63-6286rgoxubzfb, high dose seasonal, preservative-freeChristy Bethea HAND COMPOSITOR Work Phone: [facility]ansonNsnuurupvn43-41-8739HSN, recombinant, protein subunit RSVpreF, adjuvant reconstitu, 120mcg/0.5mL, PF (Arexvy)Soraida Bethea HAND COMPOSITOR Work Phone: [facility]ansonCkoxcofxgb13-98-0313mmintajgs virus vaccine, unspecified formulationChristy Bethea HAND COMPOSITOR Work Phone: [facility]ansonNitgaknwoa54-07-7295Kdcyozdev, Seasonal, Quadrivalent, AdjuvantedChristy Bethea HAND COMPOSITOR Work Phone: [facility]ansonSmehyrgksg27-97-0156mufkxttno virus vaccine, unspecified formulationRenee Fredy DO Work Phone: [facility]ansonOjwcykzbdk89-87-5316itgdeqrrxp, tetanus toxoids and pertussis vaccineRenee Fredy DO Work Phone: [facility]ansonJspbncvxjf20-78-5980Ejhwxwrxi, High-dose Seasonal, Quadrivalent, Preservative FreeRenee Fredy DO Work Phone: [facility]ansonVdaaognocf24-43-0870Slcgouk SARS-CoV-2 VaccinationRenee Fredy DO Work Phone: [facility] Work Phone: [phone] SARS-CoV-2 VaccinationChristy Bethea HAND COMPOSITOR Work Phone: [facility]ansonZatmiroivp32-59-1054fzwbiga toxoid, reduced diphtheria toxoid, and acellular pertussis vaccine, adsorbedChristy Bethea HAND COMPOSITOR Work Phone: [facility]ansonCbkvehgyzc19-29-1125Lcmnjel SARS-CoV-2 VaccinationRenee Fredy DO Work Phone: [facility]ansonHitocbugru86-42-1257Lnxtdlu SARS-CoV-2 VaccinationRenee Fredy DO Work Phone: [facility]ansonCrhwsvvygg62-92-1060Vxqsgbzlj, High-dose Seasonal, Quadrivalent, Preservative FreeChristy Bethea HAND COMPOSITOR Work Phone: [facility]ansonKftgtepqra38-12-2987corzbocizyeo polysaccharide vaccine, 23 valentChristy Bethea HAND COMPOSITOR Work Phone: [facility] Payers DatePayer CategoryPayerPolicy [id number] MEDICARE ADVANTAGE HUMANA MEDICARE [id number] 2021-Present [address] [address] [place] [address] [id number] 2021Medicare (Managed Care)HUMANA MEDICARE ADVANTAGE [id number] 2001MedicareMEDICARE MEDICARE PART A AND B [id number] 2000-Present [phone] [address] [place], [id number] [id number]9833-31-6035Htiodsg [id number] 2.16840.1.587723.3.57[id number] 2.16840.1.847104.3.57[id number] 2.16840.1.087806.3.57[id number] 2.840.1.938647.3.57[id number] 2.840.1.422239.3.57[id number] 2.840.1.984574.3.57[id number] 2.840.1.571418.3.57[id number] 2.840.1.524000.3.57[id number] 2.840.1.761560.3.57[id number] 2.840.1.964331.3.57[id number] 2.16840.1.345264.3.57[id number] 2.840.1.896186.3.57[id number] 2.16840.1.079905.3.57[id number] 2.16840.1.609150.3.57[id number] 2.16.840.1.513506.3.57[id number] 2.16.840.1.875092.3.57[id number] 2.16.840.1.244291.3.579.[id number] 2.16.840.1.846404.3.57[id number] 2.16.840.1.945300.3.57[id number] 2.16.840.1.239705.3.57[id number] 2.16.840.1.638537.3.57[id number] 2.16.840.1.097551.3.579.2.[id number] 2.16.840.1.336914.3.579.2.1259 Social History DateTypeDetailFacilityStart: 09-26-2021 End: 92-23-2958Lcxdaxc smoking status NHISNever smokerParma Community General HospitalBetterPet Work Phone: start: 09-26-2021 End: 60-29-5046Yqnbjeq use and exposureNever usedParma Community General HospitalBetterPetStart: 1940 Sex Assigned At BirthNot on [facility] hospitalIQumulus Work Phone: exposure to SARS-CoV-2 (event)Not [facility] CampusBetterPet Start: 09-08-2023 End: 51-87-7771Rxp Assigned At BirthLanagan [employer] Other Start: 12-03-2023 End: 01-71-5454Ixoqwga intakeCurrent drinker of alcohol (finding)[facility] Start: 09-08-2023 End: 56-77-1201Khrxbbw of Social functionNOWY HealthcareStart: 07-33-6427Fgrsioc Commentcaffeine intake: noneNOMS HealthcareStart: 06-12-2021 End: 50-86-3998OkeCslzyb (finding)José Miguel [facility] CenterStart: 01-04-2025 Tobacco smoking status NHISEx-smoker (finding)[facility] Start: 31-43-4923Vqs Assigned At [facility] NEGATED: Highlighted rowStart: NINFHistory of tobacco usePassive smokerC[facility] Medical Equipment Procedure CodeEquipment CodeEquipment Original TextEquipment IdentifierDates Check fasting glucose once [id number]: 00-94-7139Kmhwwo 1 Lancet under the skin in the morning.[id number]: 08-20-2023 Clinical Notes 04-23-2022 to 10-06-2025 Note Date & ZgrsJhzgFouyuyjx85-66-4519 NoteUTP CARDIOLOGY INPATIENT PROGRESS NOTE Reason for follow up: severe aortic stenosis s/p TAVR 10/04/25 PMH: Severe aortic stenosis with dmo-yauh-amh gradient,, nonobstructive coronary artery disease, longstanding persistent atrial fibrillation on Eliquis, chronic diastolic heart failure, essential hypertension, pulmonary hypertension, and CKD stage IIIb HPI: Yesy Rodriguez is a 85 y.o. female presenting with severe Aortic stenosis for elective TAVR after outpatient evaluation by Dr. Wright in the structural heart team. She also has the following valvular anomalies: low flow, low gradient aortic valve stenosis with mild AI and moderate aortic cusp calcification, Moderate mitral insufficiency with mild MV stenosis, and Mild tricuspid valve insufficiency. She bagan feeling more fatigue several months ago with decreasing activity tolerance and intermittent chest pain. She was evaluated by the structural heart team. Ischemic workup showed the following nonobstructive CAD: Moderate 3-vessel coronary artery disease with 50% mid LAD, 40% proximal circumflex and 40% mid RCA stenosis. RHC also revealed pre and post capillary pulmonary HTN with the following PA pressures: 57/20(36), PCWP 17. CAD treated medically. On 10/04/2025 she had uneventful TAVR with bioprosthetic 20 mm Perez TONY 3 Ultra RESILIA valve . On postop day 1 follow-up echocardiogram found preserved EF with normal aortic valve mean gradient and no paravalvular leak. She was held overnight to monitor bradycardia and for PT & OTevaluations and recommendations for discharge. Subjective 10/05/25 Patient evaluated at bedside with family member present who manages her medications. Patient says she is feeling well, and is somewhat impulsive and forgetful of calling for nurse to get out of bed but has not fallen. She denies chest discomfort, palpitations, lightheadedness, weakness or any significant discomfort at femoral arteriotomy sites. Family member discloses that patient has chronic history of difficulty swallowing pills, often takes 15 minutes to get her morning pills taken. She has not eaten since last evening as was held n.p.o. for swallow study, but this has not been performed and patient is now refusing it and insisting that she eat. 10/06/25 Patient evaluated at bedside, sitting up dressed for discharge, in good spirits, hoping to go home. She is oriented to self, place and time, cannot give her home address (has lived there for years) or current or past presidents names. She has been fitted for 30-day event monitor, and I discussed with her findings of bradycardia and recommendation that she wear this to in case she has significant prolonged bradycardia or cardiac pauses. She has minimal discomfort at her right and left groin arteriotomy sites with no bleeding. She has been ambulating in room and denies dyspnea, chest discomfort, lightheadedness, palpitations or abdominal discomfort. She is eating and drinking well. She wants to discharge home, and home health services have been arranged. After her discharge I first left voicemail and then spoke directly with janusz Bell (who manages her meds) with recommendation to reduce patient's metoprolol succinate from 200 mg daily to 100 mg daily, taking one half of her 200 mg tablet until can fern picker new Rx. Lizabeth was very pleased to hear this as is largest tablet pt takes and most difficult to swallow. She will fern picker new Rx tomorrow. ALLERGIES No Known Allergies Discharge meds Your medication list START taking these medications Instructions Last Dose Given Next Dose Due amoxicillin 500 mg capsule Commonly known as: Amoxil Take 4 caps (2000 mg) as one single dose within1 hour prior to any dental procedure. aspirin 81 mg chewable tablet Chew 1 tablet (81 mg) with breakfast. CONTINUE taking these medications Instructions Last Dose Given Next Dose Due amLODIPine 5 mg tablet Commonly known as: Norvasc anastrozole 1 mg chemo tablet Commonly known as: Arimidex apixaban 2.5 mg tablet Commonly known as: Eliquis Take 1 tablet (2.5 mg) by mouth two times daily. atorvastatin 10 mg tablet Commonly known as: Lipitor benazepril 10 mg tablet Commonly known as: Lotensin cholecalciferol (vitamin D3) 10 mcg (400 unit) capsule docusate sodium 100 mg capsule Commonly known as: Colace furosemide 40 mg tablet Commonly known as: Lasix Jardiance 10 mg Generic drug: empagliflozin TAKE 1 TABLET EVERY MORNING latanoprost 0.005 % ophthalmic solution Commonly known as: Xalatan metoprolol succinate XL 200 mg 24 hr tablet Commonly known as: Toprol-XL ranolazine 500 mg 12 hr tablet Commonly known as: Ranexa Take 1 tablet (500 mg) by mouth two times daily for 10 days. Do not crush, chew, or split. SITagliptin phosphate 50 mg tablet Commonly known as: Atifuvia Where to Get Your Medications These medications were sent to [facility]/pharmacy #[id number] - F (more content not included)...[facility]11-06-2025 NoteHistory of CHF with preserved EF, compensated Patient on Benazepril and Lasix as well as Toprol-XL. Patient also on JardianceUnAkron [facility]11-06-2025 NotePatient has severe symptomatic stage D3 aortic valve stenosis Status post accessible transcatheter aortic valve replaced on 10/04 Patient on aspirin and Eliquis and Toprol-XLUnAkron Children's Hospital 10-06-2025 NoteContinue Toprol-XL and Eliquis History of chronic kidney disease stage IIIb History of COPDUnAkron Children's Hospital11-06-2025 NoteSW met with patient and janusz Barone. [facility] recommended. [facility] referrals sent. [facility] accepted. Niece selected [facility] as patient deferred choice to her. AVS sent to [facility] Jan[facility]z to transport patient home. No other needs known to this worker.[facility]11-06-2025 NoteHospital Medicine Discharge Summary Admission Date: 10/04/2025 6:31 AM Total duration of encounter: 1 day Final Discharge Diagnosis: Severe symptomatic aortic stenosis stage D3/none rheumatic aortic valve stenosis History of CHF with preserved EF Stage IIIb chronic kidney disease COPD History of coronary artery disease A-fib Admission Diagnosis: Nonrheumatic aortic valve stenosis [I35.0] Aortic stenosis, severe [I35.0] Hospital course: Patient was admitted to the hospital on 10/04 for severe symptomatic stage D3 aortic valve stenosis and patient underwent on 10/04 Successful transcatheter aortic valve replacement using a 20 mm Perez TONY 3 Ultra RESILIA valve deployed at nominal volume via percutaneous transfemoral access. Post TAVR echocardiogram pending patient hopefully will be discharged home today and to have event monitor as well on discharge. Patient to follow-up with cardiology team in 1 week Surgical, Invasive or Diagnostic Procedures Done During Admission: TAVR Consultations During Admission: Cardiology Dear CHENCHO Bethea Mary is advised to follow up with you within 1-2 weeks. Items to follow up in ambulatory setting: Event monitor Follow-up with: Cardiology Scheduled appointments: Future Appointments Date Time Provider Department Center 10/13/2025 11:00 AM Dheeraj Sesay CNP [facility] 11/03/2025 10:30 AM [facility] CV ECHO ROOM 2 [facility] 11/04/2025 3:00 PM Onel Wright MD [facility] Your medication list START taking these medications Instructions Last Dose Given Next Dose Due aspirin 81 mg chewable tablet Start taking on: October 06, 2025 Chew 1 tablet (81 mg) with breakfast. CONTINUE taking these medications Instructions Last Dose Given Next Dose Due amLODIPine 5 mg tablet Commonly known as: Norvasc anastrozole 1 mg chemo tablet Commonly known as: Arimidex apixaban 2.5 mg tablet Commonly known as: Eliquis Take 1 tablet (2.5 mg) by mouth two times daily. atorvastatin 10 mg tablet Commonly known as: Lipitor benazepril 10 mg tablet Commonly known as: Lotensin cholecalciferol (vitamin D3) 10 mcg (400 unit) capsule docusate sodium 100 mg capsule Commonly known as: Colace furosemide 40 mg tablet Commonly known as: Lasix Jardiance 10 mg Generic drug: empagliflozin TAKE 1 TABLET EVERY MORNING latanoprost 0.005 % ophthalmic solution Commonly known as: Xalatan metoprolol succinate XL 200 mg 24 hr tablet Commonly known as: Toprol-XL ranolazine 500 mg 12 hr tablet Commonly known as: Ranexa Take 1 tablet (500 mg) by mouth two times daily for 10 days. Do not crush, chew, or split. SITagliptin phosphate 50 mg tablet Commonly known as: Baltazar Where to Get Your Medications These medications were sent to [facility] - [place], [place] - [address] [place] [address] [facility] [place] [address], [facility] [address] aspirin 81 mg chewable tablet Yesy has no known allergies. Disposition: Home or Self Care () Discharge Condition: Stable Code Status: Full Code Diagnostic Results Hematology: Results from last 7 days Lab Units 10/05/25 0927 WBC AUTO 10*3/uL 11.35* HEMOGLOBIN g/dL 12.7 HEMATOCRIT % 39.7 MCV fL 100.0* PLATELETS AUTO 10*3/uL 183 Chemistry: Results from last 7 days Lab Units 10/05/25 0927 SODIUM mmol/L 142 POTASSIUM mmol/L 4.1 CHLORIDE mmol/L 111* CO2 mmol/L 14* BUN mg/dL 30* CREATININE mg/dL 1.31* GLUCOSE mg/dL 107* MAGNESIUM mg/dL 2.3 CALCIUM mg/dL 8.9 Results from last 7 days Lab Units 10/05/25 0927 AST U/L 36 ALT U/L 20 ALK PHOS U/L 100 BILIRUBIN TOTAL mg/dL 0.8 Test Results Pending At Discharge: Pending Labs Order Current Status Activated clotting time In process Activated clotting time In process Diet at the time of discharge: regular diet and cardiac diet Activity: Patient currently has no discharge activity orders Objective Blood pressure 125/55, pulse 92, temperature 37 ???C (98.6 ???F), resp. rate 25, height 1.499 m (4' 11 ), weight 50.9 kg (112 lb 3.2 oz), SpO2 100%. Cardiovascular: Rate and Rhythm: Normal rate. Rhythm irregular Pulmonary: Effort: Pulmonary effort is normal. No respiratory distress. Breath sounds: Normal breath sounds. No wheezing or rales. Chest: Chest wall: No tenderness. Abdominal: General: Bowel sounds are normal. There is no distension. Palpations: Abdomen is soft. Tenderness: There is no abdominal tenderness. Skin: General: Skin is warm and dry. Neurological: General: No focal deficit present. Total time for discharge - review of data, exam, discussion with providers and care-team, med-rec and orders, arranging follow up, counseling of patient and/or family and documentation was 60 minutes. Signed Richard Vu MD [facility] Medicine 10/05/2025 11:36 AM CC: Neema [facility]11-06-2025 Note Occupational Therapy Occupational Therapy Evaluation Patient Name: Yesy Rodriguez : 1940 Today's Date: 10/06/2025 Start Time: 907 Stop Time: 925 Time Calculation (min): 18 min OT Evaluation Time Entry OT Evaluation (Low) Time Entry: 18 General Subjective: I really want to do some exercises at home pleasant and cooperative Patient Summary: 85 y/o F presenting to [facility] for TAVR and underwent procedure 10/04/2025 to address known aortic valve stenosis. Patient has significant PMH of HLD, DM, and HTN. OT Diagnosis: OT evaluation this date to assess current functional status, independence with ADLs, and provide equipment and discharge recommendations Problem List[1] Medical History[2] Surgical History[3] Precautions Precautions Medical Precautions: telemetry Pain Pain Assessment Pain Assessment: No/denies pain Pain Score: 0 - No pain Cognition Cognition Overall Cognitive Status: Within Functional Limits Arousal/Alertness: Localized responses Orientation Level: Oriented X4 Following Commands: Follows all commands and directions without difficulty Safety Judgment: Good awareness of safety precautions Awareness of Errors: Good awareness of errors made Deficits: Fully aware of deficits Attention Span: Appears intact Memory: Appears intact Problem Solving: Able to problem solve independently Communication: Intact General Assessment General Assessment Hearing: WFL Skin Integrity: All visualized areas appear intact Edema: none noted Hand Dominance: Right Home Living Home Living Type of Home: Condo Lives With: Alone Home Adaptive Equipment: Cane Home Living Comments: reports family lives nearby Home Layout: One level Home Access: Level entry Bathroom Shower/Tub: Walk-in shower Bathroom Toilet: Standard Bathroom Equipment: Grab bars in shower, Built-in shower seat Prior Level of Function Prior Function Level of [place]: Independent with ADLs and functional transfers, Independent with homemaking with ambulation Prior Functional Mobility: Independent without device History of Falls: denies Receives Help From: Family (provides transportation as needed) ADL Assistance: Independent Homemaking Assistance: Independent Prior Function Comments: states family is available to assist but rarely needs it Static Sitting Balance Static Sitting Balance Static Sitting-Balance Support: Feet supported Static Sitting-Level of Assistance: Distant supervision Static Sitting-Comment/Number of Minutes: EOB and in chair Dynamic Sitting Balance Dynamic Sitting Balance Dynamic Sitting-Balance Support: Feet supported Dynamic Sitting-Balance: Lateral lean, Forward lean, Reaching for objects Dynamic Sitting Balance-Level of Assistance: Distant supervision Static Standing Balance Static Standing Balance Static Standing-Balance Support: No upper extremity supported Static Standing-Level of Assistance: Distant supervision Dynamic Standing Balance Dynamic Standing Balance Dynamic Standing-Balance Support: No upper extremity supported Dynamic Standing-Balance: Lateral lean, Forward lean, Reaching for objects Dynamic Standing Balance-Level of Assistance: Close supervision Dynamic Standing-Comments: transfers and functional mobility throughout room and hallway ADL ADL Eating Assistance: Independent Grooming Assistance: Independent Bathing Assistance: Stand by UE Dressing Assistance: Independent LE Dressing Assistance: Independent (donning socks and shoes) Toileting Assistance with Device: Independent Bed Mobility Bed Mobility Bed Mobility: No (standing in hallway with PT upon arrival) Transfers Transfers Ambulation comments: Patient tolerated functional mobility throughout room and hallway this date. Transfer: Yes Transfer 1 Transfer From 1: Chair with arms, Bed Transfer Type 1: To and from Transfer to 1: Stand Technique 1: Sit to stand, Stand to sit Transfer Device 1: none Transfer Level of Assistance 1: Distant supervision Trials/Comments 1: transferring from bed and chair throughout session Objective General Assessments Activity Tolerance Endurance: Stage IV Activity Tolerance Comments: Patient tolerated functional mobility throughout room and hallway, ADLs, and transfers this date. All vitals WNL Vision - Basic Assessment Current Vision: No visual deficits Sensation Light Touch: No apparent deficits Sharp/Dull: No apparent deficits Stereognosis: No apparent deficits Sensation Comments: reports intact sensation Proprioception Proprioception: No apparent deficits Perception Inattention/Neglect: Appears intact Initiation: Appears intact Motor Planning: Appears intact Perseveration: Not present Coordination Movements are Fluid and Coordinated: Yes Hand Function Gross Grasp: Functional Coordination: Functional Extremity Assessments GILMA Hutton (more content not included)...[facility] 10-06-2025 NotePhysical Therapy Physical Therapy Evaluation Patient Name: Yesy Rodriguez : 1940 Today's Date: 10/06/2025 Start Time: 900 Stop Time: 919 Time Calculation (min): 19 min PT Evaluation Time Entry PT Evaluation (Low) Time Entry: 11 PT Therapeutic Procedures Time Entry Therapeutic Activity Time Entry: 8 General Subjective: RN approved PT session and OOB activity this date. Patient standing in her room upon arrival, agreeable to session. Upon completion, patient left in the chair with OT and RN remaining present. Patient Summary: Patient is a 85 y/o /female presenting 10/04/25 for scheduled TAVR due to severe aortic valve stenosis. Currently POD #2. PT Diagnosis: Baseline functional mobility Spoke with patient's Niece of the phone. She did express some concerns ab out the patient being at home and able to care for self. Reports of occasional falls, forgetfulness with medications. The patient performed very well throughout my assessment today. Functionally safe for return to home, may benefit from Home PT, patient agreeable. Spoke with care team about potential of Home Health RN for assist medication management. PT to sign off at this time. No further acute PT needs. Problem List[1] Medical History[2] Surgical History[3] Precautions Precautions Medical Precautions: telemetry Pain Pain Assessment Pain Assessment: No/denies pain Pain Score: 0 - No pain Cognition Cognition Overall Cognitive Status: Within Functional Limits Arousal/Alertness: Appropriate responses to stimuli Orientation Level: Oriented to person, Oriented to place, Oriented to situation Following Commands: Follows all commands and directions without difficulty Safety Judgment: Good awareness of safety precautions General Assessment General Assessment Hearing: Mild [place] Hand Dominance: Right Home Living Home Living Type of Home: Condo Lives With: Alone Home Adaptive Equipment: Cane Home Living Comments: One Story Condo Home Layout: One level Home Access: Level entry Bathroom Shower/Tub: Walk-in shower Bathroom Toilet: Standard Bathroom Equipment: Grab bars in shower, Built-in shower seat Prior Level of Function Prior Function Level of [place]: Independent with ADLs and functional transfers, Independent with homemaking with ambulation Prior Functional Mobility: Independent without device Receives Help From: Family (family assists with driving, likely some IADL's though patient reports she is able to complete everything herself.) ADL Assistance: Independent Homemaking Assistance: Independent Vision Basic Assessment Vision - Basic Assessment Current Vision: No visual deficits Vision - Complex General Assessments Activity Tolerance Endurance: Stage IV Sensation Light Touch: No apparent deficits Coordination Movements are Fluid and Coordinated: Yes Postural Control Postural Control: Within Functional Limits Static Sitting Balance Static Sitting-Balance Support: Feet supported Static Sitting-Level of Assistance: Independent Dynamic Sitting Balance Dynamic Sitting-Balance Support: Right upper extremity supported, Left upper extremity supported, Feet supported Dynamic Sitting-Balance: Forward lean, Lateral lean Dynamic Sitting Balance-Level of Assistance: Independent Static Standing Balance Static Standing-Balance Support: No upper extremity supported Static Standing-Level of Assistance: Independent Dynamic Standing Balance Dynamic Standing-Balance Support: No upper extremity supported Dynamic Standing Balance-Level of Assistance: Distant supervision Functional Assessments Bed Mobility Bed Mobility: No (Not observed at this time, patient reports she is independent) Transfers Transfer: Yes Transfer 1 Technique 1: Sit to stand, Stand to sit (From bedside chair) Transfer Device 1: none Transfer Level of Assistance 1: Independent Trials/Comments 1: BUE on arm rests of the chair for support without verbal cues Ambulation Ambulation: Yes Ambulation 1 Surface 1: Level tile Device 1: No device Assistance 1: Distant supervision Quality of Gait 1: Symmetrical step through gait pattern without significant instability or LOB, adequate gait speed. Comments/Distance (ft) 1: 350 ft Extremity Assessments RUE Assessment RUE Assessment: Within Functional Limits LUE Assessment LUE Assessment: Within Functional Limits RLE Assessment RLE Assessment: Within Functional Limits LLE Assessment LLE Assessment: Within Functional Limits Therapeutic Exercise Outcome Assessments 6 Clicks (Mobility) Help from another person turning from your back to your side while in a flat bed without using bedrails: None Help from another person moving from lying on your back to sitting on the side of a flat bed without using bedrails: None Help from another person moving to and from a bed to a chair (including a wheelchai (more content not included)...[facility] 10-05-2025 [facility] Medicine Daily Progress Note - 10/05/2025 3:50 PM; Room: [facility]/3116-01 Admission: 10/04/2025 6:31 AM; Length of stay: 1 days THE HOSPITALIST TEAM PREFERS TO USE Onit FOR NON-URGENT COMMUNICATION 7AM-7PM. IF I DO NOT RESPOND WITHIN 20 MINUTES OR URGENT MATTERS, PLEASE CALL THROUGH THE ELECTRICAL SYSTEMS ENGINEER. FROM 7PM-7AM, PLEASE PAGE [phone](COVR). Code Status: Full Code Barriers to Discharge: Monitoring post TAVR PT/OT evaluation Expected Discharge Date: 1 day Discharge Destination: home Overview Patient is seen for evaluation and management of severe aortic stenosis/post TAVR. Subjective Seen today in her room, denies any significant chest pain or shortness of breath Physical Exam Cardiovascular: Rate and Rhythm: Normal rate. Rhythm irregular Pulmonary: Effort: Pulmonary effort is normal. No respiratory distress. Breath sounds: Normal breath sounds. No wheezing or rales. Chest: Chest wall: No tenderness. Abdominal: General: Bowel sounds are normal. There is no distension. Palpations: Abdomen is soft. Tenderness: There is no abdominal tenderness. Skin: General: Skin is warm and dry. Neurological: General: No focal deficit present. Visit Vitals BP 114/54 Pulse 79 Temp 37 ???C (98.6 ???F) Resp 25 Intake/Output Summary (Last 24 hours) at 10/05/2025 1550 Last data filed at 10/05/2025 1040 Gross per 24 hour Intake 931.66 ml Output -- Net 931.66 ml Estimated body mass index is 22.66 kg/m??? as calculated from the following: Height as of this encounter: 1.499 m (4' 11 ). Weight as of this encounter: 50.9 kg (112 lb 3.2 oz). Assessment and Plan Assessment & Plan Nonrheumatic aortic valve stenosis Patient has severe symptomatic stage D3 aortic valve stenosis Status post accessible transcatheter aortic valve replaced on 10/04 Patient on aspirin and Eliquis and Toprol-XL Diastolic congestive heart failure (CMS/HCC) History of CHF with preserved EF, compensated Patient on Benazepril and Lasix as well as Toprol-XL. Patient also on Jardiance A-fib (CMS/FORMERLY [facility]) Continue Toprol-XL and Eliquis History of chronic kidney disease stage IIIb History of COPD VTE Prophylaxis: Eliquis Scheduled Meds acetaminophen, 1,000 mg, oral, q8h amLODIPine, 5 mg, oral, Daily apixaban, 2.5 mg, oral, BID aspirin, 81 mg, oral, Daily with breakfast atorvastatin, 10 mg, oral, Nightly docusate sodium, 100 mg, oral, Daily furosemide, 40 mg, oral, Daily metoprolol succinate XL, 25 mg, oral, Daily SITagliptin phosphate, 50 mg, oral, Daily Pertinent Investigations Hematology: Results from last 7 days Lab Units 10/05/25 0927 WBC AUTO 10*3/uL 11.35* HEMOGLOBIN g/dL 12.7 HEMATOCRIT % 39.7 MCV fL 100.0* PLATELETS AUTO 10*3/uL 183 Chemistry: Results from last 7 days Lab Units 10/05/25 0927 SODIUM mmol/L 142 POTASSIUM mmol/L 4.1 CHLORIDE mmol/L 111* CO2 mmol/L 14* BUN mg/dL 30* CREATININE mg/dL 1.31* GLUCOSE mg/dL 107* MAGNESIUM mg/dL 2.3 CALCIUM mg/dL 8.9 Results from last 7 days Lab Units 10/05/25 0927 AST U/L 36 ALT U/L 20 ALK PHOS U/L 100 BILIRUBIN TOTAL mg/dL 0.8 Results from last 7 days Lab Units 10/05/25 1119 10/05/25 0538 10/04/25 2358 10/04/25 1742 10/04/25 1504 POCT GLUCOSE mg/dL 200* 81 79 88 85 Historical Values: (Includes values prior to this admission) No results found for: PREALBUMIN , TSH , T3FREE , FREET4 , CORTISOL , FEV1 , IZV7VPZ , DLCO , RVSP , HDL , LDL No results found for: KAZSSHZO00 , IRON , TIBC , C3 , C4 , JAMAL , CANCA , ASO , PSA , CEA , CA125 , CA199 , AFP , CA153 Imaging Transthoracic Echo (TTE) LImited w/wo Contrast, Strain, 3D, Color FLow, Bubble Study 1 [facility] Heart Station [address] [place] [address] [phone] (fax) Echocardiogram-[facility] Name: YESY RODRIGUEZ Study Date: 10/05/2025 08:04 AM B/P: 125 mmHg/55 mmHg HR: 69 bpm Date of : 1940 Location: [facility] Height: 59 in. Age: 85 year(s) Patient Room: 3116 Weight: 112 lb. Gender: Female Patient Status: InPt BSA: 1.44 m2 Indication: Aortic stenosis, s/p 20mm Tony Resilia TAVR, Atrial Fibrillation Examination: Limited Echo/Limited Doppler, Color flow imaging, Lumason Contrast Image Quality: Fair Patient Consent: Procedure explained to patient Exam Details Contrast: I.V. dose of Lumason Conclusions Left Ventricle: The left ventricle is normal size. Global left ventricular systolic function is normal. The calculated Biplane EF is 67 %. The EF is 70 % visually. Left ventricular wall thickness is normal. Right Ventricle: The right ventricle is normal in size. Normal right ventricular systolic function. Doppler studies suggest moderately elevated right sided pressures (elevated pulmonary pressure). Left Atrium: The left atrium appears enlarged. Mitral Valve: Mild mitral regurgitation. Aortic Valve: 20m (more content not included)...[facility] 10-05-2025 NoteSpeech Language Pathology Name: Yesy Rodriguez Date of : 1940 Today's Date: 10/05/25 Order received and acknowledged for MBS; however, per RENAE Arce, pt has been tolerating her pills and her regular diet without any concerns; therefore, Dr. Vu canceled the MBS order. Check No Charge [facility]: [facility] NoteUTP CARDIOLOGY INPATIENT PROGRESS NOTE Reason for follow up: severe aortic stenosis s/p TAVR 10/04/25 PMH: Severe aortic stenosis with [id number] gradient,, nonobstructive coronary artery disease, longstanding persistent atrial fibrillation on Eliquis, chronic diastolic heart failure, essential hypertension, pulmonary hypertension, and CKD stage IIIb HPI: Yesy Rodriguez is a 85 y.o. female presenting with severe Aortic stenosis for elective TAVR after outpatient evaluation by Dr. Wright in the structural heart team. She also has the following valvular anomalies: low flow, low gradient aortic valve stenosis with mild AI and moderate aortic cusp calcification, Moderate mitral insufficiency with mild MV stenosis, and Mild tricuspid valve insufficiency. She bagan feeling more fatigue several months ago with decreasing activity tolerance and intermittent chest pain. She was evaluated by the structural heart team. Ischemic workup showed the following nonobstructive CAD: Moderate 3-vessel coronary artery disease with 50% mid LAD, 40% proximal circumflex and 40% mid RCA stenosis. RHC also revealed pre and post capillary pulmonary HTN with the following PA pressures: 57/20(36), PCWP 17. CAD treated medically. On 10/04/2025 she had uneventful TAVR with bioprosthetic 20 mm Perez TONY 3 Ultra RESILIA valve . On postop day 1 follow-up echocardiogram found preserved EF with normal aortic valve mean gradient and no paravalvular leak. Subjective 10/05/25 Patient evaluated at bedside with family member present who manages her medications. Patient says she is feeling well, and is somewhat impulsive and forgetful of calling for nurse to get out of bed but has not fallen. She denies chest discomfort, palpitations, lightheadedness, weakness or any significant discomfort at femoral arteriotomy sites. Family member discloses that patient has chronic history of difficulty swallowing pills, often takes 15 minutes to get her morning pills taken. She has not eaten since last evening as was held n.p.o. for swallow study, but this has not been performed and patient is now refusing it and insisting that she eat. Tele: Atrial fibrillation with controlled rates mild bradycardia during sleep hours without pauses ALLERGIES No Known Allergies CURRENT MEDS acetaminophen, 1,000 mg, oral, q8h amLODIPine, 5 mg, oral, Daily apixaban, 2.5 mg, oral, BID aspirin, 81 mg, oral, Daily with breakfast atorvastatin, 10 mg, oral, Nightly docusate sodium, 100 mg, oral, Daily furosemide, 40 mg, oral, Daily metoprolol succinate XL, 25 mg, oral, Daily SITagliptin phosphate, 50 mg, oral, Daily PRN medications: glucose OR dextrose 50 % in water (D50W), naloxone OR naloxone OR naloxone, ondansetron ODT OR ondansetron, oxyCODONE OR oxyCODONE Objective Patient Vitals for the past 24 hrs: BP Temp Temp src Pulse Resp SpO2 Weight 10/05/25 1645 114/70 -- -- 76 -- -- -- 10/05/25 1458 -- -- -- 79 -- -- -- 10/05/25 1200 114/54 -- -- 67 -- 98 % -- 10/05/25 1000 -- 37 ???C (98.6 ???F) -- -- -- -- -- 10/05/25 0751 -- -- -- 92 -- 100 % -- 10/05/25 0407 125/55 -- -- 68 25 100 % -- 10/05/25 0400 -- 36.3 ???C (97.4 ???F) Temporal 64 24 -- -- 10/05/25 0343 -- -- -- -- -- -- 50.9 kg (112 lb 3.2 oz) 10/05/25 0000 128/56 36.3 ???C (97.3 ???F) Temporal 73 20 99 % -- BP 114/70 Pulse 76 Temp 37 ???C (98.6 ???F) Resp 25 Ht 1.499 m (4' 11 ) Wt 50.9 kg (112 lb 3.2 oz) SpO2 98% BMI 22.66 kg/m??? Wt Readings from Last 3 Encounters: 10/05/25 50.9 kg (112 lb 3.2 oz) 09/21/25 52.2 kg (115 lb) 08/22/25 53.1 kg (117 lb) General: Awake, alert, appropriate mood / affect, NAD Eyes: anicteric sclera. Non-injected conjunctiva. No xanthelasmas Neck: No elevated JVP. No carotid bruit Pulm: No increased work of breathing. Breath sounds clear to ascultation bilaterally with no wheeze, crackles or rhonchi Cards: HR irreg irreg with controlled rates, NL S1, S2. No S3 or S4 gallop. Murmur: none Abd: Soft, Nontender, physiologic bowel sounds are present Extr: Lower extremity edema: None. DP pulses present bilaterally Right and left groin arteriotomy sites are clean and dry without hematoma or significant bruising. Cleansed with alcohol wipe and Band-Aid applied. Same for right neck venous access site. Skin: warm, dry, well perfused Neuro: A&Ox2-3, No gross deficits Hematology: Results from last 7 days Lab Units 10/05/25 0927 WBC AUTO 10*3/uL 11.35* HEMOGLOBIN g/dL 12.7 HEMATOCRIT % 39.7 MCV fL 100.0* PLATELETS AUTO 10*3/uL 183 Chemistry: Results from last 7 days Lab Units 10/05/25 0927 SODIUM mmol/L 142 POTASSIUM mmol/L 4.1 CHLORIDE mmol/L 111* CO2 mmol/L 14* BUN mg/dL 30* CREATININE mg/dL 1.31* GLUCOSE mg/dL 107* MAGNESIUM mg/dL 2.3 CALCIUM mg/dL 8.9 Results from last 7 days Lab Units 10/05/25 0927 AST U/L 36 ALT U/L 20 ALK PHOS U/L 100 BILIRUBIN TOT (more content not included)...[facility] 10-05-2025 NoteCardiothoracic Surgery Post Operative Progress Note 10/05/2025 As the teaching physician, I have personally performed or re-performed the history of present illness, physical exam and medical decision-making activities of the encounter and verified the medical student's documentation. I made pertinent changes as necessary to ensure accurate documentation. There may be additional comments below. Ihsan Platt MD Cardiac Surgery Room: 3116/3116-01 Post Op Day: 1 Day Post-Op Subjective Yesy Rodriguez is a 85 y.o. female with significant past medical history of non obstructive CAD, chronic diastolic heart failure (12/28/2021), chronic kidney disease, persistent atrial fibrillation (09/06/2022) and severe symptomatic stage D3 non-rheumatic aortic valve stenosis post-op day 1 from transcatheter aortic valve replacement 10/05/25. Bleeding from right femoral site was noted following the procedure yesterday, was assessed by cardiology and hemostasis was achieved with pressure. No acute events overnight. Patient was examined at bedside this morning. Afebrile and hemodynamically stable. Pain is well controlled. Patient denies chest pain and lightheadedness, improved from prior to surgery. Reports improved fatigue; however, continued SOB with exertion. Denies abdominal pain and bowel movement. Reports chills overnight requiring several blankets - niece states she tends to be cold and patient was held NPO overnight for MBS this morning but was cancelled as patient was tolerating her morning pills and diet. Objective Patient Vitals for the past 24 hrs: BP Temp Temp src Pulse Resp SpO2 Weight 10/05/25 0751 -- -- -- 92 -- 100 % -- 10/05/25 0407 125/55 -- -- 68 25 100 % -- 10/05/25 0400 -- 36.3 ???C (97.4 ???F) Temporal 64 24 -- -- 10/05/25 0343 -- -- -- -- -- -- 50.9 kg (112 lb 3.2 oz) 10/05/25 0000 128/56 36.3 ???C (97.3 ???F) Temporal 73 20 99 % -- 10/04/251999 114/54 -- -- 65 22 99 % -- 10/04/25 1947 114/62 -- -- 66 16 100 % -- 10/04/25 1800 127/64 -- -- 63 19 100 % -- 10/04/25 1700 122/55 -- -- 64 16 97 % -- 10/04/25 1630 (!) 118/49 -- -- 64 16 100 % -- 10/04/25 1600 (!) 122/49 -- -- 64 21 100 % -- 10/04/25 1500 150/61 -- -- 66 14 -- -- 10/04/25 1430 132/53 -- -- 59 12 -- -- 10/04/25 1400 129/53 -- -- 62 17 99 % -- 10/04/25 1330 129/61 -- -- 64 17 -- -- 10/04/25 1303 -- -- Temporal -- -- -- -- 10/04/25 1300 120/61 -- -- 55 25 100 % -- 10/04/25 1245 123/57 -- -- 67 14 100 % -- 10/04/25 1230 117/62 -- -- 63 17 -- -- 10/04/25 1215 132/54 -- -- 62 (!) 31 100 % -- 10/04/25 1200 125/64 -- -- 67 20 100 % -- 10/04/25 1145 148/64 36.3 ???C (97.4 ???F) -- 63 17 100 % -- 10/04/25 1115 128/65 -- -- 57 16 100 % -- 10/04/25 1100 114/59 -- -- 63 12 100 % -- 10/04/25 1045 125/61 -- -- 60 18 100 % -- 10/04/25 1041 110/61 -- -- 58 12 100 % -- 10/04/25 1018 110/60 -- -- 60 12 100 % -- Physical Exam Constitutional: Appearance: Normal appearance. HENT: Head: Normocephalic. Eyes: Extraocular Movements: Extraocular movements intact. Pupils: Pupils are equal, round, and reactive to light. Cardiovascular: Rate and Rhythm: Rhythm irregular. Pulses: Normal pulses. Heart sounds: Normal heart sounds. No murmur heard. Pulmonary: Effort: Pulmonary effort is normal. No respiratory distress. Breath sounds: Normal breath sounds. Abdominal: General: Abdomen is flat. Bowel sounds are normal. There is no distension. Palpations: Abdomen is soft. Musculoskeletal: General: Tenderness present. Cervical back: Normal range of motion. Comments: +1 bilateral pitting edema Bilateral femoral incision tenderness Negative for hematomas bilaterally Skin: General: Skin is warm and dry. Findings: No bruising or rash. Neurological: General: No focal deficit present. Mental Status: She is alert and oriented to person, place, and time. Psychiatric: Mood and Affect: Mood normal. Behavior: Behavior normal. Lab Results Component Value Date BUN 48 (H) 01/16/2022 CALCIUM 9.2 01/16/2022 MG 1.8 11/30/2021 No results found for: BILITOT , BILIDIR , ALKPHOS , AST , ALT , PROT , ALBUMIN Lab Results Component Value Date WBC 11.35 (H) 10/05/2025 RBC 3.97 10/05/2025 HGB 12.7 10/05/2025 HCT 39.7 10/05/2025 PLT 183 10/05/2025 NRBC 0 01/16/2022 Assessment/Plan: Yesy Rodriguez is a 85 y.o. female with severe symptomatic D3 non-rheumatic aortic valve stenosis, s/p 10/05/25 transcatheter aortic valve replacement using a 20 mm Perez TONY 3 Ultra RESILIA valve deployed at nominal volume via percutaneous transfemoral access. -Will review echo when final read is completed. -Follow-up with Cardiology. -Primary team and cardiology coordinating discharge. -No further follow-up with CT Surgery is needed. Luis Miguel Mora, M3 [facility] To reach Cardiothoracic Surgery Inpatient from 8am-4pm call Ascom #[phone]. Only use [employer] fo (more content not included)...[facility]11-04-2025 NotePatient: Yesy Rodriguez Procedure Information Date/Time: 10/04/25 0830 Procedure: TAVR Location: [facility] ACCOUNTS PAYABLE ACCOUNTANT 3 / [facility] (Cath) Providers: Onel Wright MD Clinical information reviewed: Allergies Meds OB Status Physical Exam Airway Mallampati: II TM distance: >3 FB Neck ROM: full Cardiovascular Rhythm: regular Rate: normal Dental Pulmonary Breath sounds clear to auscultation Neurological Abdominal Anesthesia Plan ASA 3 other (Conscious sedation.) Anesthetic plan and risks discussed with patient. Use of blood products discussed with patient who consented to blood products. [facility] Note Subjective Patient ID: Yesy Rodriguez is a 85 y.o. female who presents for Consult (TAVR eval ). HPI 85 year old female with medical history of Chronic HFpEF, HTN, HLD, Permanent atrial fibrillbation, Pulm HTN, CKD stage III, Type 2 DM, History of ovarian CA, COPD, and bilat hearing loss (hearing aids). She also has the following valvular anomalies: low flow, low gradient aortic valve stenosis with mild AI and moderate aortic cusp calcification, Moderate mitral insufficiency with mild MV stenosis, and Mild tricuspid valve insufficiency. She bagan feeling more fatigue several months ago with decreasing activity tolerance and intermittent chest pain. She was evaluated by the structural heart team. Ischemic workup showed thefollowing nonobstructive CAD: Moderate 3-vessel coronary artery disease with 50% mid LAD, 40% proximal circumflex and 40% mid RCA stenosis. RHC also revealed pre and post capillary pulmonary HTN with the following PA pressures: 57/20(36), PCWP 17. CAD treated medically. The structural heart team thought she would benefit from TAVR. She was referred to CT Surgery for further evaluation. Review of Systems Constitutional: Positive for fatigue (generalized, worsening). Negative for chills, diaphoresis and fever. Respiratory: Negative for chest tightness and wheezing. Cardiovascular: Positive for leg swelling (occasionally). Negative for chest pain and palpitations. Gastrointestinal: Negative for abdominal distention, abdominal pain, blood in stool, nausea and vomiting. Skin: Negative for rash and wound. Neurological: Positive for weakness (generalized, chronic, unchanged). Negative for dizziness ( sometimes but only last a minute or so) and light-headedness (occasionally when getting up too fast). Objective Visit Vitals BP 149/82 (BP Location: Right arm, Patient Position: Sitting, BP Cuff Size: Adult) Pulse 65 Physical Exam Constitutional: General: She is not in acute distress. Appearance: She is not ill-appearing, toxic-appearing or diaphoretic. HENT: Head: Normocephalic. Mouth/Throat: Mouth: Mucous membranes are moist. Cardiovascular: Rate and Rhythm: Normal rate and regular rhythm. Heart sounds: Murmur heard. No gallop. Pulmonary: Effort: Pulmonary effort is normal. No respiratory distress. Breath sounds: No wheezing or rales. Abdominal: General: There is no distension. Palpations: Abdomen is soft. Tenderness: There is no abdominal tenderness. Musculoskeletal: General: No swelling. Skin: General: Skin is warm and dry. Capillary Refill: Capillary refill takes less than 2 seconds. Coloration: Skin is not jaundiced or pale. Neurological: General: No focal deficit present. Mental Status: She is alert and oriented to person, place, and time. Psychiatric: Mood and Affect: Mood normal. Behavior: Behavior normal. Assessment/Plan Diagnoses and all orders for this visit: Nonrheumatic aortic valve stenosis - Ambulatory referral to Cardiothoracic Surgery Chronic diastolic heart failure ([facility]) Primary hypertension Stage 3b chronic kidney disease ([facility]) Chronic obstructive pulmonary disease, unspecified COPD type ([facility]) Diagnosis Plan 1. Nonrheumatic aortic valve stenosis Ambulatory referral to Cardiothoracic Surgery - Available medical records and ERIK were reviewed in collaboration with Dr. Finney. Findings of severe AV stenosis discussed with the patient. -Reviewed treatment options for AV Replacement. Explained risks and benefits of surgical AV replacement and TAVR. Dr. Finney informed patient that SAVR would be very high risk for her, considering her advanced age and comorbidities. Her estimated STS score for operative mortality is 19.6%, and overall risk of morbidity and mortality is 29%. Patient also stated that she would not want to have open heart surgery. -Will update structural heart team of our evaluation. Clinical Summary Planned Surgery: Isolated AVR, Elective, First cardiovascular surgery Demographics: 85 year old, Other, female, 53.1kg, 149.86cm, BMI: 23.6 kg/m??? Insurance/Payor: Medicare Lab Values: Creatinine: 2.01 mg/dL, Hematocrit: 41.5%, WBC Count: 9.4 10???/?L, Platelet Count: 293379 cells/?L PreOp Medications: Oral diabetes control Substance Abuse: Former smoker, Alcohol use: <= 1 drink/week Risk Factors / Comorbidities: Diabetes Mellitus , Hypertension, Family Hx of CAD Pulmonary RF: Unknown CLD Vascular RF: Peripheral Artery Disease Cardiac Status: Chronic heart failure, NYHA Class III, Ejection Fraction = 65% Coronary Artery Disease: 3 vessels diseased, No coronary symptoms Valve Disease: Aortic Stenosis, Mitral Stenosis, Moderate MR, Mild TR Arrhythmia: Recent A-fib, Persistent Type: Isolated AVR Perioperative Outcome Estimate % Operative Mortality 19.6% Morbidity & Mortality 29.8% Stroke 5.36% Renal Failure 14.8% Reoperation 4.3% Prolonged Ventilation 21.4% Deep (more content not included)...[facility]10-20-2025 NoteCTA CHEST W IV CONTRAST 09/19/2025 11:10 AM CLINICAL INDICATIONS: Aortic stenosis. Pre-T aVR evaluation. PROTOCOL: Gated chest CTA and noncontrast calcium scoring CONTRAST: 75 mL Omnipaque 350 TECHNIQUE: Multidetector CT axial slices of the chest were obtained with IV contrast. Multiplanar reformats were performed and viewed on a separate workstation and reviewed to further define anatomy and possible pathology. 3-D volume rendered images are obtained and T aVR measurements All CT scans at this facility use dose modulation, iterative reconstruction, and/or weight based dosing when appropriate to reduce radiation dose to as low as reasonably achievable. COMPARISON: None. FINDINGS: Lower neck: Thyroid gland within normal limits, no supraclavicle adenopathy. Vessels: Pulmonary arteries are Within normal limits. Mild to moderate atherosclerotic changes in the aorta. and coronary arteries. Mediastinum and Shelly: Within normal limits. Heart: Normal size. No pericardial effusion. Airways: Within normal limits Lungs: Within normal limits with 4 mm groundglass nodule in the right upper lobe in axial image 333 series 8. Pleura: Within normal limits. Chest Wall: Few coarse benign calcifications in the left breast. No axillary adenopathy. Upper Abdomen: Please refer to abdomen pelvis CT report from the same day for full details. Bones: Lower cervical and lower thoracic spondylosis. No acute bony abnormality. Gated noncontrast calcium scoring revealed a grade 3 aortic cusp coarse calcification with total calcium scoring of 5599. T aVR measurements: 3-D volume rendered images of the aortic root and proximal ascending aorta is obtained as well as coronal reconstruction. Localization of the left coronary cusp, right coronary cusp and noncoronary cusp in the axial images and localization of the esophagus. 3 cusped view, anterior view, no WINDOWS SYSTEMS ENGINEER-CAU view are obtained in 3-D volume rendered images and saved. The annulus measures 21.7 x 16 mm with surface area of 2.76 sq cm and perimeter of 60.5 mm. Embedded geometric suggest valve diameter of 23 mm. Height of the left coronary artery is 11.8 mm from the annulus and right coronary artery is 8.5 mm from the annulus. Diameter of the left coronary sinus is 26.8 mm, right sinus 26.3 mm and noncoronary sinus 26.8 mm. Diameter of the sinotubular junction is 23 mm and ascending aorta is 28.3 mm. Diameter of the infrarenal abdominal aorta is 9.8 mm with vascular calcification. Diameter of the right common iliac artery is 6.3 mm, right external iliac artery is 5 mm, right femoral artery is 5.8 mm. Diameter of the left common iliac artery is 8.6 mm, left external iliac artery is 5.9 mm and left femoral artery is 4.2 mm with significant vascular calcification seen bilaterally. 3-D volume rendered images revealed mild tortuosity of the common and external neck arteries bilaterally IMPRESSION: T aVR measurements as described above and suggested valve diameter of 23 mm. Total calcium scoring of 5599 and coarse grade 3 aortic cusp calcification Small groundglass 4 mm nodule in the right upper lobe. No follow-up is needed in low risk patient. Electronically signed: Lala Marcus MD. 9[facility] HospitalComment on above:Order Comment: Use low dose (half dose) -[id number] NotePatient: Yesy Rodriguez Procedure Information Date/Time: 09/15/25 1400 Procedures: Coronary angiography - PC APPROVED 09/06-10/30 Right heart cath Location: [facility] ACCOUNTS PAYABLE ACCOUNTANT 3 / [facility] (Cath) Providers: Onel Wright MD Clinical information reviewed: Allergies Meds Physical Exam Airway Mallampati: III TM distance: >3 FB Neck ROM: full Cardiovascular Rhythm: regular Dental Pulmonary Neurological Abdominal Anesthesia Plan ASA 3 other (Conscious sedation) intravenous induction Anesthetic plan and risks discussed with patient. Use of blood products discussed with patient who consented to blood products. Plan discussed with attending and fellow. Additional Equipment RequestsC[facility] Clinic [facility] Hospital09-22-2025 Note [place] Cardiology - [facility] Subjective Yesy Rodriguez is a 85 y.o. year old female patient being seen for 3 mo follow up with ECHO. Patient states she has been feeling off and on. Patient states she has been to the [facility] ER quite a bit with chest pain. [...] is an 81-year-old woman who moved from [place] in May 2021. She is known to [...] then discharged. She was evaluated at the [facility] cardiology service and she was planned [...] patent with antegrade f (more content not included)...[facility] 08-02-2025 History of Present illness Narrative* Soraida Bethea, HAND COMPOSITOR - 08/02/2025 1:30 PM EDT Images from the original note were not included. Yesy Rodriguez is a 85 y.o. female presents with chief complaint of ER Follow-up HPI: History of Present Illness The patient presents for evaluation of congestive heart failure and diabetes. She has been diagnosed with congestive heart failure. Her last consultation with Dr. Bartholomew, her primary animal care assistant, was in 05/2025. He recommended a procedure due to the increasing blockage in her valve, but she declined at that time. An echocardiogram was performed on Friday morning followingher emergency room visit. She has experienced two episodes of chest pain but was not admitted to the hospital. She reports frequent urination and regular bowel movements. She has been taking Colace and prune juice, which have effectively managed her constipation. HPI Flowsheet Row Patient Outreach from 07/29/2025 in [facility] with Ritu Sanchez [facility] Information ED, Hospital or Alf Facility Discharge? ED Patient has been contacted within 2 days of being seen in the ED Yes Diagnosis chest pain Discharge Date 07/28/25 Discharged To: Home Setting Discharge Hospital [facility] Engagement Call Start Time 1401 Admission Date [...] Pain resolved by the time pt arrived toED. EKG showed a-fib with rate of [address] elevation or depression. Labs showed no acute pathology,2nd troponin negative. Chest XR normal. Cardio was [...] 07/29/2025 in [facility] with [facility] Information ED, Hospital or Alf Facility Discharge? ED Patient has been contacted within 2 days of being seen in the ED Yes Diagnosis chest pain Discharge Date 07/28/25 Discharged To: Home Setting Discharge Hospital [facility] Engagement Call Start Time 1401 Admission Date [...] Pain resolved by the time pt arrived toED. EKG showed a-fib with rate of [address] elevation or depression. Labs showed no acute pathology,2nd troponin negative. Chest XR normal. Cardio was [...] worsen or don't improve. documented in this encounterCox [id number] NoteUT Cardiology - [facility] Subjective Yesy Rodriguez is a [...] is an 81-year-old woman who moved from [place] in May 2021. She is known to [...] then discharged. She was evaluated at the [facility] cardiology service and she was planned [...] fibrillation, left an (more content not included)... [facility]06-03-2025 NotePlease let her know there were changes on her recent ECHO. We need to proceed with a follow-up ERIK to further assess her aortic valve. Thanks! [facility]06-03-2025 NoteRVSP has doubled since her last ECHO 6 months ago. Was at 44 now is at 94. 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 She see's you on 05/16/25. Do you want me to order a ERIK, increase lasix, or just wait until you see her? Thanks! [facility]03-03-2025 History of Present illness Narrative* Soraida Bethea, CHENCHO - 01/31/2025 10:30 AM EST Images from the original note were not [...] 50 mg, Oral, Daily TRUEplus Lancets 28G [facility] Lancet , Subcutaneous, Daily I have [...] tenderness or frontal sinus tenderness. Mouth/Throat: Lips: [place]. Mouth: Mucous membranes are moist. Pharynx: Oropharynx [...] hearing of left ear documented in this encounterCox [id number] History of Present illness Narrative* Rochelle Mclain NP - 01/17/2025 11:15 AM ESTAssociated Order(s): L Inj/Asp: L subacromial bursa Post-Procedure [...] Not At Risk (11/03/2020) Received from [facility], [facility] AUDIT-C Frequency of Alcohol Consumption: Monthly [...] given 40mg Depomedrol was injected. Patient tolerated thiswell. Neurovasc intact s/p injection. Post injection care instructions discussed. Questions answered in laymen terms at the bedside. The diagnosis, home exercise plan and any ongoing restrictions/ recommendations reviewed. If unable to be reached in office, I recommend evaluation at nearest Emergency Room if any symptoms worsened or new symptoms develop for requiring urgent evaluation. Rochelle Mclain MORTGAGE LOAN PROCESSOR-SPRAY RIG OPERATOR documented in this [facility]02-17-2025 Telephone encounter Note* Telephone Encounter - Rochelle Mclain NP - 01/17/2025 8:57 AM EST Yes that's fine [facility] Work Phone: [phone]) 535-919402-17-2025 Miscellaneous Notes* Telephone Encounter - Rochelle Mclain NP - 01/17/2025 8:57 AM EST Yes that's fine * Telephone Encounter - Gretel Rajan - 01/17/2025 8:52 AM EST Patient's niece Lizabeth called stating she had RSV/Flu last week. She wanted to make sure it's still ok to come in today for an injection. documented in this [facility]02-17-2025 Telephone encounter Note* Telephone Encounter - Gretel Rajan - 01/17/2025 8:52 AM EST Patient's niece Lizabeth called stating she had RSV/Flu last week. She wanted to make sure it's still ok to come in today for an injection. [facility] [id number] History of Present illness Narrative* Soraida Bethea, HAND COMPOSITOR - 01/03/2025 10:00 AM EST Images from the original note were not included. Yesy Rodriguez is a 84 y.o. female presents with chief complaint of Earache HPI: HPI Patient is present with concerns of earwax impaction. Patient states she was fitted for hearingaids last month and the provider noted that [...] membrane of both ears- documented in this encounterCox [id number] History of Present illness Narrative* Ewelina Sims MA - 11/17/2024 3:30 PM EST Patient was in today because her hearing aid is not working. I reviewed with patient and her niece how to change the filter in the hearing aid. Listening check was good after changing. Patient has anadequate supply as she has never changed it. Patient does have wax present in the ear canal. She was encouraged to see her PCP to see if they can remove the wax. Patient will follow up as needed. Cosigned by JANNA Jim at 11/18/2024 3:48 PM EST documented in this encounterCox [id number] NotePatient here for 6 mo follow up valve disorder, chronic diastolic heart failure, and CAD. Had routine echo last week. She denies chest pain, SOB, palpitations, lightheadedness/syncope, and bleeding on Eliquis. Her niece states the only thing she c/o is fatigue. Review of Systems Constitutional: Positive for malaise/fatigue. Musculoskeletal: Positive for back pain and neck pain. All other systems reviewed and are negative.[facility] 11-10-2024 NoteCardiovascular Medicine [facility] SUBJECTIVE Chief Complaint Patient presents with Valve [...] dizziness/LH, palpitations, syncope. Last HPI per Dr. Wright: Visit of 12/28/2021: Yesy is seen as a new patient. She is here to establish care and to proceed with work-up of her valvular heart disease and diastolic heart failure. She is an 81-year-old woman who moved from [place] in May 2021. She is known to [...] then discharged. She was evaluated at the [facility] cardiology service and she was planned [...] 3. Moderately elevated right-sided filling pressures. 4. Lbnevcmq-ls-edzsrq elevation of the left-sided filling pressures. 5. [...] doing reasonably well from (more content not included)...[facility]02-05-2024 Evaluation note* Encounter Date Diagnosis Assessment Notes Treatment Notes Treatment Clinical Notes Jan, Primary hypertension (ICD-10 - I 10) [facility] Other 08-08-2023 Evaluation note* Encounter Date Diagnosis [...] will follow the patient in 4 months Jul,rimary hypertension (ICD-10 - I10)Blood pressure seems reasonably controlled for her age. continue same blood pressure medication. I asked the patient to monitor her blood pressure at home and to continue low Na diet Jul,hronic congestive heart failure, unspecified heart failure type (ICD-10 - I50.9)Seems compensating with the current dose of Lasix. 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 Patient said her diabetes well controlled. She is only Januvia .patient follows with her PCP for blood glucose control Jul,Vitamin D deficiency (ICD-10 - E55.9)Patient is taking vitamin D supplement. 25 OH VD is WNL. phosphorus and calcium next visit Jul,Hyperuricemia (ICD-10 - E79.0)Uric acid slightly high at 8.3. I will continue to monitor uric acid. No gout attack Jul,Hyperkalemia (ICD-10 - E87.5)resolved with stopping aldactone. continue Low K diet Jul,Hematuria, unspecified type (ICD-10 - R31.9)follows with urology clinic in [facility] Other 02-22-2023 Evaluation note* Encounter Date Diagnosis Assessment Notes Treatment Notes Treatment Clinical Notes Jan, Hyperkalemia (ICD-10 - E87.5) [facility] Other 02-21-2023 Evaluation note* Encounter Date Diagnosis [...] will follow the patient in 4 months Jan,rimary hypertension (ICD-10 - I10)Blood pressure seems reasonably controlled for her age. I stop aldactone due to hyperkalemia. continue same other blood pressure medication. I asked the patient to monitor her blood pressure at home Jan,hronic congestive heart failure, unspecified heart failure type (ICD-10 - I50.9)Seems compensating with the current dose of Lasix. 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 Patient said her diabetes well controlled. She is only Januvnh patient follows with her PCP for blood glucose control Jan,Vitamin D deficiency (ICD-10 - E55.9)Patient is taking vitamin D supplement. Will check PTH,25-hydroxy vitamin D, phosphorus and calciumnext visit Jan,Hyperuricemia (ICD-10 - E79.0)Uric acid slightly high at 7.5. I will continue to monitor uric acid. Jan,Hyperkalemia (ICD-10 - E87.5)K 5.7. Will give the patient lokelma for 3 days. Will stop aldactone. Patient as given handout of high K food at [email or web address]. [facility] Other 10-18-2022 Evaluation note* Encounter Date Diagnosis [...] will follow the patient in 4 months Aug,rimary hypertension (ICD-10 - I10)Blood pressure seems reasonably controlled for her age. I will continue same blood pressure medication. I asked the patient to monitor her blood pressure at home Aug,hronic congestive heart failure, unspecified heart failure type (ICD-10 - I50.9)Seems compensating with the current dose of Lasix. Patient has aortic stenosis and mitral regurgitation and she follows with cardiology clinic in [place] Aug,2Diabetes type 2, no ocular involvement (ICD-10 - E11.9)Patient used to be on metformin but was stopped due to worsening kidney function. Patient said her diabetes well controlled. She is only Januvia patient follows with her PCP for blood glucose control Aug,Vitamin D deficiency (ICD-10 - E55.9)Patient is taking vitamin D supplement. PTH, 25-hydroxy vitamin D and calcium are within normal limit. Aug,Hyperuricemia (ICD-10 - E79.0)Uric acid slightly high at 7.5. I will continue to monitor uric acid. [facility] Other 05-24-2022 Evaluation note* Encounter Date Diagnosis [...] Okay to continue same dose of Lasix andACE inhibitor for now I asked the patient to avoid NSAIDs. I will follow the patient in 3 months March,rimary hypertension (ICD-10 - I10)Blood pressure seems reasonably controlled for her age. I will continue same blood pressure medication. I asked the patient to monitor her blood pressure at home March,2Chronic congestive heart failure, unspecified heart failure type (ICD-10 - I50.9)Seems compensating with the current dose of Lasix. Patient has aortic stenosis and mitral regurgitation and she follows with cardiology clinic in [place] March,2Diabetes type 2, no ocular involvement (ICD-10 - E11.9)Patient used to be on metformin but was stopped due to worsening kidney function. Patient said her diabetes well controlled. 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 documented in this encounter [employer] Phone: evaluation note* Diagnosis History of ovarian cancer Personal history of malignant neoplasm of ovary documented in this encounter [employer] Phone: evaluation noteNo [employer] Other Evaluation note* Diagnosis Type 2 diabetes mellitus with chronic kidney disease, without long-term current use of insulin, unspecified CKD stage (CMS/HCC) [facility] Diagnosis Primary hypertension (CMS/HCC) Unspecified essential hypertension [facility] Diagnosis Mixed hyperlipidemia (CMS/HCC) Mixed hyperlipidemia [facility] Diagnosis Mixed conductive and sensorineural hearing loss of right ear with restricted hearing of left ear- Primary [facility] Diagnosis Type 2 diabetes mellitus with chronic kidney disease, without long-term current use of insulin, unspecified CKD stage (CMS/HCC) [facility] Diagnosis Essential hypertension (CMS/HCC)- Primary [...] diseases Stage 3b chronic kidney disease (HCC) (CMS/HCC) Type 2 diabetes mellitus with chronic kidney [...] of left ear documented in this encounter [facility] Healthcare[facility]* 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 [facility] Diagnosis Onset Date Resolution Status Admit Date Chronic congestive heart failure acuteJune 2024 11:28amHyperkalemiaacuteJune 2024 11:28amHypertensive nephropathyacuteJune 2024 11:28amHyperuricemiaacuteJune 2024 11:28am Stage 3b chronic kidney diseaseacuteJune 2024 11:28amType 2 diabetes mellitusacuteJune 2024 11:28amVitamin D deficiencyacuteJune 2024 11:28am [facility] Work Phone: Evaluation note* Diagnosis Mixed hyperlipidemia Mixed hyperlipidemia documented in this encounter [facility] HealthcareEvaluation note* Diagnosis Type 2 diabetes mellitus with chronic kidney disease, without long-term current use of insulin, unspecified CKD stage (HCC)- Primary Essential hypertension Unspecified essential hypertension Longstanding persistent atrial fibrillation (HCC) Type 2 diabetes mellitus with diabetic peripheral angiopathy without gangrene, without long-term current use of insulin (HCC) Mitral valve stenosis and regurgitation documented in this encounter [facility] HealthcareHistory general Narrative - Reported* Type Description Date Medical History PULMONARY HYPERTENSION Medical HistoryCHRONIC ATRIAL FIBRILLATIONMedical HistoryMITRAL VALVE REGURGITATIONMedical HistoryMITRAL VALVE STENOSISMedical HistoryCHRONIC KIDNEY STAGE 4Medical HistoryESSENTIAL HYPERTENSIONMedical HistoryHYPERCHOLESTEROLEMIA Medical HistoryAORTIC VALVE CALCIFICATIONMedical HistoryTYPE 2 DIABETES MELLITUS Surgical HistoryHYSTERECTOMY/REVISE VAGINASurgical HistoryCARDIAC CATHETERIZATIONSurgical HistoryREMOVAL OF OVARIESHospitalization HistorySEE ABOVE [facility] Other Summary Purpose Family History No Family History Records Found Relationship Condition Age at Onset Recorded Date/T westley brother Unknown Heart diseaseUnknownMalignant neoplasmUnknownfatherDeceasedUnknownHistory of strokeUnknownfamily memberDeceasedUnknownmotherHeart diseaseUnknownDeceased Unknown Advance Directives No Advanced Directives Records [...] section and content) DATE CREATED AUTHOR 09/27/2021 [facility] DATE CREATED AUTHOR AUTHOR'S ORGANIZ ATION 01/22/2022 [facility] DATE CREATED AUTHOR AUTHOR'S ORGANIZ ATION 02/18/2022 [facility] DATE CREATED AUTHOR AUTHOR'S ORGANIZ ATION 06/11/2022 [facility] DATE CREATED AUTHOR AUTHOR'S ORGANIZ ATION 10/14/2022 [facility] DATE CREATED AUTHOR AUTHOR'S ORGANIZ ATION 03/20/2023 [facility] DATE CREATED AUTHOR AUTHOR'S ORGANIZ ATION 03/11/2025 [facility] DATE CREATED AUTHOR AUTHOR'S ORGANIZ ATION 08/03/2025 [facility] DATE CREATED AUTHOR AUTHOR'S ORGANIZ ATION 10/14/2025 [facility] Care Teams (unrecognized sec tion and content) Team MemberRelationshipSpecialtyStart DateEnd Date Zachary Boyle [address] [place] [address] PCP - GeneralFamily Udnmseyx87/27/21Team MemberRelationshipSpecialty[place] [address] [place] [address] PCP - GeneralGynecological Oncology07/17/22Team MemberRelationshipSpecialtyStart DateEnd Date Elmira Brown DO [address] [place] [address] PCP - [employer]05/31/21 Elmira Brown DO [address] [place] [address] PCP - GeneralFamily Medicine04/09/23Team MemberRelationshipSpecialtyStart DateEnd Date Elmira Brown DO [address] [place] [address] PCP - [employer]05/31/21 Lexy Mei MD [address] [place] [address] PCP - GeneralFamily Medicine01/12/24 Soraida Bethea NP [address] [place] [address] Nurse PractitionerFamily Medicine01/12/24Team MemberRelationshipSpecialtyStart DateEnd Date Elmira Brown DO [address] [place] [address] PCP - [facility]05/31/21 Lexy Mei MD [address] [place] [address] PCP - GeneralFadcly Medicine01/12/24 Soraida Bethea NP [address] [place] [address] [facility] Medicine01/12/24Team MemberRelationshipSpecialtyStart DateEnd Date Elmira Brown DO [address] [place] [address] [facility] Lexy Mei MD [address] [place] [address] PCP - [facility] Medicine01/12/24 Soraida Bethea NP [address] [place] [address] Nurse Pract[facility]erUnity[facility] Medicine01/12/24Team MemberRelationshipSpecialtyStart DateEnd Date Elmira Brown DO [address] [place] [address] PCP - [facility]05/31/21 Lexy Mei MD [address] [place] [address] PCP - [facility] Medicine01/12/24 Soraida Bethea NP [address] [place] [address] [facility] Medicine01/12/24Te MemberRelationshipSpecialtyStart DateEnd Date Elmira Brown DO [address] [place] [address] PCP - [facility]05/31/21 Lexy Mei MD [address] [place] [address] [facility] - [facility]/24 Soraida Bethea NP [address] [place] [address] [facility]01/12/24Te MemberRelationshipSpecialtyStart DateEnd Date Elmira Brown DO [address] [place] [address] PCP - [facility]05/31/21 Lexy Mei MD [address] [place] [address] P[facility] - [facility] Medicine01/12/24 Soraida Bethea HAND COMPOSITOR [address] [place] [address] [facility] Medicine01/12/24Te MemberRelationshipSpecialtyStart DateEnd Date Elmira Brown DO [address] [place] [address] PCP - [facility]05/31/21 Lexy Mei MD [address] [place] [address] PCP - [facility]01/12/24 Soraida Bethea NP [address] [place] [address] Nurse Pract[facility]01/12/24Team MemberRelationshipSpecialtyStart DateEnd Date Elmira Brown DO [address] [place] [address] PCP [facility]05/31/21 Lexy Mei MD [address] [place] [address] PCP - [facility]01/12/24 Soraida Bethea NP [address] [place] [address] [facility]01/12/24Team MemberRelationshipSpecialtyStart DateEnd Date Elmira Brown DO [address] [place] [address] PCP [facility]02/28/23 Team Status: Active Member Role Status Dates Soraida Bethea HAND COMPOSITOR-C Primary Care Provider Activ e Team Status: Active Member Role Status Dates Soraida Bethea HAND COMPOSITOR-C Primary Care Provider Activ e Start: May 02, 2025 Js Ayala ProviderActiveStart: May 02, 2025 Team Status: Inactive Member Role Status Dates Soraida Bethea HAND COMPOSITOR-C Primary Care Provider Activ e Start: May 10, 2025 End: May 10Js Kline ProviderActiveStart: May 10, 2025 End: May 10, 2025Team MemberRelationshipSpecialtyStart DateEnd Date Elmira Brown DO [address] [facility] [address] [place] [address] PCP - [employer]05/31/21 Lexy Mei MD [address] [place] [facility] [place] [address] PCP - GeneralFamily Medicine01/12/24 Soraida Bethea HAND COMPOSITOR [address] [place] [facility] [place] [address] Nurse PractitionerFamily Medicine01/12/24Team MemberRelationshipSpecialtyStart DateEnd Date Elmira Brown DO [address] [facility] [address] [place] [address] PCP - [employer]05/31/21 Lexy Mei MD [address] [place] [address] PCP - GeneralFamily Medicine01/12/24 Soraida Bethea NP [address] [place] [address] Nurse PractitionerFamily Medicine01/12/24Team MemberRelationshipSpecialtyStart DateEnd Date Elmira Brown DO [address] [facility] [address] [place] [address] PCP - [employer]05/31/21 Lexy Mei MD [address] [place] [address] PCP - GeneralFamily Medicine01/12/24 Soraida Bethea NP [address] [place] [address] Nurse PractitionerFadcly Medicine01/12/24 REASON FOR VISIT (unrecogniz ed section and content) ReasonCommentsMed RefillReasonCommentsEaracheReasonOnset DateCommentsInjection 01/17/2025ReasonCommentsPainReasonCommentsMedicare Annual Wellness Visit SubsequentReasonCommentsER Follow-up Goals (unrecognized section and content) Goals [...] BE BASED ON THE PRIMARY CLINICAL RECORDS. RECESS.. provides no warranty or guarantee of the accuracy or completeness of information in this document.
[2025-11-08 10:10] LABS: Hematocrit 38.7 % (36.0-48.0); Hemoglobin 12.7 g/dL (12.0-16.0); Mean Corpuscular HGB Conc 32.8 g/dL (29.9-35.2); Mean Corpuscular Hemoglobin 32.2 pg (26.7-34.0); Mean Corpuscular Volume 98.0 fL (81.0-99.0); Platelet Count 197 10^3/uL (150-450); Red Blood Count 3.95 10^6/uL (4.20-5.40); White Blood Count 7.8 10^3/uL (4.0-11.0)
[2025-11-08 10:21] LABS: Protein Creatinine Ratio Urine 0.44; Total Protein Urine Random 25.5 mg/dL (<=11.9)
[2025-11-08 10:31] LABS: Albumin Level 4.2 g/dL (3.4-5.0); Anion Gap 16.1; Blood Urea Nitrogen 40.0 mg/dL (7.0-18.0); Calcium 9.3 mg/dL (8.5-10.1); Carbon Dioxide 26.8 mmol/L (21.0-32.0); Chloride 105 mmol/L (98-107); Estimated GFR (African America 37 (>=60 mL/min/1.73m^2); Estimated GFR (Non-African Ame 31 (>=60 mL/min/1.73m^2); Glucose 119 mg/dL (74-106); Magnesium 2.4 mg/dL (1.8-2.4); Potassium 3.9 mmol/L (3.5-5.1); Sodium 144 mmol/L (136-145); Uric Acid 8.4 mg/dL (2.6-6.0)
== END 2025-11-08 09:14 | disposition home or self-care (01) ==
LOC: LAB 09:15
PROVIDERS: PCP Nurse Practitioner Family; Visit Provider Internal Medicine Nephrology
DX: I50.32 Chronic diastolic (congestive) heart failure (principal); E55.9 Vitamin D deficiency, unspecified; E11.9 Type 2 diabetes mellitus without complications; E87.5 Hyperkalemia; E79.0 Hyperuricemia without signs of inflammatory arthritis and tophaceous disease; I12.9 Hypertensive chronic kidney disease with stage 1 through stage 4 chronic kidney disease, or unspecified chronic kidney disease
CPT/HCPCS: 36415; 80069; 82306; 82570; 83735; 83970; 84156; 84550; 85027